=== PATIENT | male | born 1970 | race Caucasian/White ===

== ENCOUNTER 2020-07-29 09:04 | Outpatient (REF) | payer OTHER, SELFPAY ==
[2020-07-29 10:21] LABS: MANUAL DIFF FLAG NO
[2020-07-29 10:44] LABS: Basophils Percent Auto 0.3 % (0-2); Eosinophils Absolute Auto 0.4 X10*3/uL (0.0-0.4); Hematocrit 43.5 % (42-52); Hemoglobin 14.5 g/dl (14.0-18.0); Imm Gran Abs Auto 0.14 X10*3/uL (0.00-0.03); Imm Gran Pct Auto 1.2 % (0.0-0.4); Lymphocytes Percent Auto 16.9 % (20-40); Mean Corpuscular HGB Conc 33.3 g/dl (31.0-36.0); Mean Corpuscular Volume 89.9 fL (80-98); Mean Platelet Volume 11.2 fL (9.4-12.4); Monocytes Absolute Auto 0.6 X10*3/uL (0.1-1.2); Monocytes Percent Auto 5.2 % (2-11); Neutrophils Absolute Auto 8.8 X10*3/uL (2.0-8.3); Neutrophils Percent Auto 73.4 % (45-73); Platelet Count 295 X10*3/uL (160-400); Red Blood Count 4.84 X10*6/uL (4.60-5.80); Red Cell Distribution Width 12.9 % (11.0-16.0)
[2020-07-29 11:02] LABS: Alanine Aminotransferase 30 U/L (0-40); Albumin Level 4.5 g/dL (3.5-5.0); Alkaline Phosphatase 43 U/L (39-117); Anion Gap 14 (12-20); Aspartate Amino Transferase 15 U/L (5-37); Bilirubin Total 0.3 mg/dL (0.0-1.0); Blood Urea Nitrogen 16 mg/dL (9-16); Calcium 8.5 mg/dL (8.4-10.2); Carbon Dioxide 26 mmol/L (22-29); Chloride 105 mmol/L (96-108); Cholesterol 154 mg/dL; Estimated Glomerular Filt Rate > 60; Glucose Fasting 108 mg/dL (60-99); HDL Cholesterol 28 mg/dL; LDL Cholesterol Calculated 60 mg/dl; Potassium 4.6 mmol/l (3.3-5.1); Sodium 140 mmol/L (135-145); Total Protein 7.2 g/dL (6.5-8.0); Triglycerides 334 mg/dL; Uric Acid 12.2 mg/dL (3.4-7.0)
[2020-07-29 11:32] LABS: Folate 14.6 ng/mL (> or = 4.0); Vitamin B12 370 pg/mL (200-900)
[2020-08-04 04:32] LABS: Lipoprotein A 15 nmol/L (<75)
[2020-08-13 11:30] LABS: Apolipoprotein B 92 mg/dL (<90)
== END 2020-07-29 09:05 | disposition home or self-care (01) ==
LOC: HO.LAB 09:04
PROVIDERS: Visit Provider Internal Medicine
DX: M10.9 Gout, unspecified (principal); I10 Essential (primary) hypertension; E78.1 Pure hyperglyceridemia; E53.8 Deficiency of other specified B group vitamins; Z12.11 Encounter for screening for malignant neoplasm of colon; Z12.12 Encounter for screening for malignant neoplasm of rectum
CPT/HCPCS: 36415; 80053; 80061; 82172; 82607; 82746; 83695; 84550; 85025

== ENCOUNTER 2020-08-22 13:45 | Emergency (ER) | payer OTHER, SELFPAY ==
--- NOTE | 2020-08-22 | ECG_ITS ---
Test Reason : CHEST PAIN Blood Pressure : / mmHG Vent. Rate : 086 BPM Atrial Rate : 086 BPM P-R Int : 134 ms QRS Dur : 082 ms QT Int : 364 ms P-R-T Axes : 031 000 041 degrees QTc Int : 435 ms Normal sinus rhythm Normal ECG When compared with ECG of 22-JAN-2020 17:10, No significant change was found Referred By: Generic ED Physician Electronically Signed By:Demian Hsu
== END 2020-08-22 19:10 | disposition left against medical advice (07) ==
PROVIDERS: Emergency Provider Emergency Medicine; PCP Internal Medicine
DX: R07.9 Chest pain, unspecified (principal)
CPT/HCPCS: 93005; 99283

== ENCOUNTER 2020-08-25 14:59 | Observation (INO) | payer OTHER, SELFPAY ==
[2020-08-25 15:04] VITALS: BP 153/107; PULSE 78; RESP 18; TEMP 36.4; O2SAT 97; BMI 37.2
--- NOTE | 2020-08-25 15:04 | PC.NURSE ---
ekg called to triage upon arrival
--- NOTE | 2020-08-25 15:11 | ECG_ITS ---
Test Reason : CP Blood Pressure : / mmHG Vent. Rate : 098 BPM Atrial Rate : 098 BPM P-R Int : 130 ms QRS Dur : 080 ms QT Int : 350 ms P-R-T Axes : 042 -03 038 degrees QTc Int : 446 ms Normal sinus rhythm Nonspecific ST abnormality Abnormal ECG When compared with ECG of 22-AUG-2020 14:39, No significant change was found Referred By: Rashmi Verdugo Electronically Signed By:Demian Hsu
--- NOTE | 2020-08-25 15:11 | XR_ITS ---
EXAMINATION: XR CHEST CLINICAL INFORMATION: Left sided chest pain COMPARISON: 01/22/2020 TECHNIQUE: 2 views of the chest were obtained. FINDINGS: The cardiac silhouette is not enlarged. There is unchanged unfolding of the descending thoracic aorta and elevation of the right hemidiaphragm. A focal infiltrate is seen in the right lower lobe abutting the right hemidiaphragm. Trace right pleural effusion is seen laterally. The left lung is clear. XR/XR chest 2V IMPRESSION: Focal consolidation is seen in the right lower lobe consistent with pneumonia. The left lung is clear. No pneumothorax.
[2020-08-25 21:39] VITALS: BP 121/82; PULSE 97; RESP 16; TEMP 37.1; O2SAT 95
--- NOTE | 2020-08-25 21:39 | PC.NURSE ---
triage note: pt states he quit smoking a week ago. He reports left chest pain worse with movement and deep inspiration. He states SX started a week ago. Pt SOB when answering questions, Pt states he has been having shortness of brewath and when asked, states it is worse with activity. Ambulated pt with O2 sat probe in place, pulse to 114 and oxygen saturation 92 on RA with ambulation
[2020-08-25 22:00] VITALS: BP 156/97; PULSE 94; RESP 13; TEMP 37.1; O2SAT 94
--- NOTE | 2020-08-25 22:09 | ED_ITS ---
HPI - Chest Pain General Chief Complaint: Chest Pain Stated Complaint: chest pain Time Seen by Provider: 08/25/20 15:11 Source: patient Mode of arrival: ambulatory Limitations: no limitations History of Present Illness HPI narrative: This is a 50-year-old male history of COPD/smoker presented with 3-4 days symptoms of upper respiratory infection, productive cough with yellow sputum, and wheezing. Patient had similar symptoms before and was diagnosed with bronchitis PCP prescribed him Z-Ge patient in the middle of the course of the Z-Ge. Patient did not feel improvement with Z-Ge. Patient also been complaining of 2 days of constant chest pain mostly mid chest and toward the right side, no radiation of the pain, pain is worsening by coughing, nothing relieves the pain, pain was associated with chills and coughing. Patient while in the emergency department found to have exertional hypoxia (90%) at rest patient is satting above 94%. Patient otherwise declined risk for COVID exposure. Related Data Previous Rx's Medication Instructions Recorded albuterol sulfate 2.5 mg INHALATION TID #225 ml 06/11/20 carisoprodol 350 mg tablet 350 mg PO TID PRN 30 Days #120 tab 08/12/20 lisinopril 5 mg tablet 5 mg PO DAILY #90 tab 08/13/20 allopurinol 100 mg tablet 100 mg PO DAILY 90 Days #90 tab 08/20/20 azithromycin 250 mg tablet 250 mg PO DAILY 5 Days #6 tab 08/20/20 benzonatate 100 mg capsule 100 mg PO TID PRN 7 Days #21 cap 08/20/20 blood pressure monitor #1 ea 08/20/20 fenofibrate 160 mg tablet 160 mg PO DAILY 90 Days #90 tab 08/20/20 pantoprazole 40 mg tablet,delayed 40 mg PO DAILY 90 Days #90 tab 08/20/20 release Allergies Allergy/AdvReac Type Severity Reaction Status Date / Time bee pollen [Bee Stings] Allergy Severe ANAPHYLAXIS Verified 08/20/20 10:16 bee stings Allergy Unknown throat Verified 08/20/20 10:16 swelling hydromorphone [From DILAUDID] AdvReac Unknown VIOLENTLY Verified 08/20/20 10:16 ILL NEEDS TO EAT FIRST Review of Systems Review of Systems: All other systems are reviewed and are negative Constitutional: Reports as per HPI and Reports no additional constitutional complaints Eyes: Reports as per HPI and Reports no additional eye complaints Reports system reviewed and no additional complaints, except as documented Cardiovascular: Reports as per HPI and Reports no additional cardiovascular complaints Respiratory: Reports as per HPI and Reports no additional respiratory complaints Gastrointestinal: Reports as per HPI and Reports no additional gastrointestinal complaints Genitourinary: Reports no additional female genitourinary complaints Musculoskeletal: Reports no additional musculoskeletal complaints Skin/Breast: Reports system reviewed and no additional complaints, except as docu Psychiatric: Reports no additional psychiatric complaints Endocrine: Reports no additional endocrine complaints Hematologic/Lymphatic: Reports no additional hematologic/lymphatic complaints Allergic/Immunologic: Reports no additional allergic/immunologic complaints Reports system reviewed and no additional complaints, except as documented and R eports Abnormal speech present [facility] Past Medical History Medical History Essential hypertension GERD (gastroesophageal reflux disease) Gout Lumbar degenerative disc disease Lymphopenia Mixed hyperlipidemia Pernicious anemia Positive colorectal cancer screening using Cologuard test Surgical History History of arthroscopy of left knee History of shoulder surgery History of surgery History of total left knee replacement Status post surgical removal of malignant neoplasm of skin Family History Family History Father Lung cancer Mother Chronic mental illness Maternal Grandmother Hypertension Bone cancer Paternal Grandmother Brain cancer Maternal Uncle Cancer Family/Other Chronic mental illness Social History Social History Alcohol intake: former Smoking Status: Former smoker Tobacco Type: Cigarette Advance Directives: No Physical Exam Vital Signs: Vital Signs: Last Vital Signs Temp 98.7 F 08/25/20 22:00 Pulse 94 08/25/20 22:00 Resp 13 08/25/20 22:00 BP 156/97 H 08/25/20 22:00 Pulse Ox 94 08/25/20 22:00 Body Mass Index 37.2 Vital signs have been reviewed as normal and appeared to be correct. Blood pressure in the high range. Heart rate normal. Respiration rate normal. Temperature normal. Oxygen saturation normal. Appearance: Alert. Oriented X3. No acute distress. Head: Normal external exam. Normocephalic. Atraumatic. No Cortes signs noted. No raccoon eyes noted Eyes: PERRLA. EOMI. Conjunctiva and sclera normal. Eyelids normal. ENT: EAC normal. TM's Normal. Pharynx normal. Uvula midline. Moist mucous m embranes. No trismus noted. No drooling noted. No muffled voice noted. Neck: Normal inspection. Neck supple. FROM. No adenopathy. Thyroid Normal. No meningeal signs. No neck mass noted. CVS: Normal heart rate and rhythm. Heart sound normal. No murmurs noted. Pulses normal throughout. Respiratory: Mild respiratory distress. Painless inspiration. Breath sounds normal. Mild diffuse expiratory wheezes, no rales, rhonchi noted at the right lower lobe lung field. Chest nontender. No accessory muscle usage noted or decreased air movement noted. Abdomen: Soft and nontender. Bowel sounds normal in all 4 quadrants. No distention noted. No organomegaly noted. No visible injury noted. Back: No CVA tenderness. Full range of motion noted. Skin: Skin warm and dry. Normal skin color. Normal skin turgor. No rashes/lesions/lacerations noted. Extremities: No lower extremity edema. Extremities exhibit normal range of motion. Extremities nontender. Neuro: Oriented X 3. No motor deficit. No sensory deficit. Reflexes normal. Course Course Course Narrative: Assessment and plan. 50-year-old male smoker with history of COPD came in with respiratory symptoms of coughing/chest pain/chills/mild exertional hypoxia in the ED. Patient was prescribed p.o. Z-Ge by PCP did not complete the course yet but not feeling any improvement. Exam chest x-ray are consistent with right lower lobe pneumonia with COPD exacerbation, patient do not meet criteria for SIRS. Patient received Solu-Medrol and bronchodilator. COVID was negative. Will admit the patient for IV antibiotic. Chest pain not likely to be cardiogenic, normal EKG, normal troponin. MDM - Chest Pain Lab Data Result diagrams: 08/25/20 22:08 08/25/20 22:08 Labs: Lab Results 08/25/20 08/25/20 08/25/20 Range/Units 22:08 22:08 22:08 WBC 11.0 H (4.8-10.8) X10*3/uL RBC 4.80 (4.60-5.80) X10*6/uL Hgb 14.4 (14.0-18.0) g/dl Hct 42.8 (42-52) % MCV 89.2 (80-98) fL MCH 30.0 (27.0-33.0) pg MCHC 33.6 (31.0-36.0) g/dl RDW 12.6 (11.0-16.0) % Plt Count 265 (160-400) X10*3/uL MPV 10.3 (9.4-12.4) fL Immature Gran % (Auto) 0.8 H (0.0-0.4) % Neut % (Auto) 68.2 (45-73) % Lymph % (Auto) 23.3 (20-40) % Pettis % (Auto) 4.9 (2-11) % Eos % (Auto) 2.3 (0-4) % Baso % (Auto) 0.5 (0-2) % Lymph # (Auto) 2.6 (1.2-4.9) X10*3/uL Pettis # (Auto) 0.5 (0.1-1.2) X10*3/uL Eos # (Auto) 0.3 (0.0-0.4) X10*3/uL Baso # (Auto) 0.1 (0.0-0.2) X10*3/uL Abs Immat Gran (auto) 0.09 H (0.00-0.03) X10*3/uL Absolute Neuts (auto) 7.5 (2.0-8.3) X10*3/uL Absolute Nucleated RBC 0.000 (0.0-0.012) X10*3/uL Nucleated RBC % (auto) 0.0 (0.0-0.2) /100WBC Sodium 140 (135-145) mmol/L Potassium 3.9 (3.3-5.1) mmol/l Chloride 102 (96-108) mmol/L Carbon Dioxide 25 (22-29) mmol/L Anion Gap 17 (12-20) BUN 18 H (9-16) mg/dL Creatinine 0.97 (0.5-1.4) mg/dL Estim Creat Clear Calc 129.9 Estimated GFR > 60 Random Glucose 229 H (60-115) mg/dL Lactic Acid (0.5-2.0) mmol/L Calcium 9.2 D (8.4-10.2) mg/dL Total Bilirubin 0.5 (0.0-1.0) mg/dL Direct Bilirubin 0.2 (0.0-0.5) mg/dL AST 15 (5-37) U/L ALT 26 (0-40) U/L Alkaline Phosphatase 43 (39-117) U/L Troponin I High Sens < 3.5 (<3.5-35.0) ng/L B-Natriuretic Peptide 11 (<100) pg/mL Total Protein 7.1 (6.5-8.0) g/dL Albumin 4.5 (3.5-5.0) g/dL Lipase 27 (8-78) U/L COVID-19 (BRANDON) (Negative) COVID-19 Clin Com 08/25/20 08/25/20 Range/Units 22:08 22:08 WBC (4.8-10.8) X10*3/uL RBC (4.60-5.80) X10*6/uL Hgb (14.0-18.0) g/dl Hct (42-52) % MCV (80-98) fL MCH (27.0-33.0) pg MCHC (31.0-36.0) g/dl RDW (11.0-16.0) % Plt Count (160-400) X10*3/uL MPV (9.4-12.4) fL Immature Gran % (Auto) (0.0-0.4) % Neut % (Auto) (45-73) % Lymph % (Auto) (20-40) % Pettis % (Auto) (2-11) % Eos % (Auto) (0-4) % Baso % (Auto) (0-2) % Lymph # (Auto) (1.2-4.9) X10*3/uL Pettis # (Auto) (0.1-1.2) X10*3/uL Eos # (Auto) (0.0-0.4) X10*3/uL Baso # (Auto) (0.0-0.2) X10*3/uL Abs Immat Gran (auto) (0.00-0.03) X10*3/uL Absolute Neuts (auto) (2.0-8.3) X10*3/uL Absolute Nucleated RBC (0.0-0.012) X10*3/uL Nucleated RBC % (auto) (0.0-0.2) /100WBC Sodium (135-145) mmol/L Potassium (3.3-5.1) mmol/l Chloride (96-108) mmol/L Carbon Dioxide (22-29) mmol/L Anion Gap (12-20) BUN (9-16) mg/dL Creatinine (0.5-1.4) mg/dL Estim Creat Clear Calc Estimated GFR Random Glucose (60-115) mg/dL Lactic Acid 2.2 H* (0.5-2.0) mmol/L Calcium (8.4-10.2) mg/dL Total Bilirubin (0.0-1.0) mg/dL Direct Bilirubin (0.0-0.5) mg/dL AST (5-37) U/L ALT (0-40) U/L Alkaline Phosphatase (39-117) U/L Troponin I High Sens (<3.5-35.0) ng/L B-Natriuretic Peptide (<100) pg/mL Total Protein (6.5-8.0) g/dL Albumin (3.5-5.0) g/dL Lipase (8-78) U/L COVID-19 (BRANDON) Negative (Negative) COVID-19 Clin Com See Note Imaging Data Chest x-ray: Radiologist's impression: Focal consolidation is seen in the right lower lobe consistent with pneumonia. The left lung is clear. No pneumothorax. ECG Data ECG #1: Interpretation: Normal sinus rhythm at 98 beats per minute, normal intervals, flattening T-wave in aVL, AVF,III. Discharge Plan Discharge Clinical Impression: Acute exacerbation of chronic obstructive pulmonary disease, Community acquired pneumonia Patient Disposition: Admitted As Inpatient Prescriptions: No Action albuterol sulfate 2.5 mg /3 mL (0.083 %) solution for nebulization 2.5 mg inhalation TID Qty: 225 RF: 3 carisoprodol 350 mg tablet 350 mg PO TID PRN (Reason: muscle pain) 30 Days Qty: 120 RF: 0 lisinopril 5 mg tablet 5 mg PO DAILY Qty: 90 RF: 1 (DME) blood pressure monitor Kit See Rx Instructions .ROUTE .MEDSUPPLY Qty: 1 RF: 0 azithromycin 250 mg tablet 250 mg PO DAILY 5 Days Qty: 6 RF: 0 benzonatate [Tessalon Perles] 100 mg capsule 100 mg PO TID PRN (Reason: cough) 7 Days Qty: 21 RF: 0 allopurinol 100 mg tablet 100 mg PO DAILY 90 Days Qty: 90 RF: 0 fenofibrate 160 mg tablet 160 mg PO DAILY 90 Days Qty: 90 RF: 1 pantoprazole 40 mg tablet,delayed release (DR/EC) 40 mg PO DAILY 90 Days Qty: 90 RF: 3
[2020-08-25 22:20] LABS: Basophils Absolute Auto 0.1 X10*3/uL (0.0-0.2); Basophils Percent Auto 0.5 % (0-2); Eosinophils Absolute Auto 0.3 X10*3/uL (0.0-0.4); Eosinophils Percent Auto 2.3 % (0-4); Hematocrit 42.8 % (42-52); Hemoglobin 14.4 g/dl (14.0-18.0); Imm Gran Abs Auto 0.09 X10*3/uL (0.00-0.03); Imm Gran Pct Auto 0.8 % (0.0-0.4); Lymphocytes Absolute Auto 2.6 X10*3/uL (1.2-4.9); Lymphocytes Percent Auto 23.3 % (20-40); MANUAL DIFF FLAG NO; Mean Corpuscular HGB Conc 33.6 g/dl (31.0-36.0); Mean Corpuscular Volume 89.2 fL (80-98); Mean Platelet Volume 10.3 fL (9.4-12.4); Monocytes Absolute Auto 0.5 X10*3/uL (0.1-1.2); Monocytes Percent Auto 4.9 % (2-11); Neutrophils Absolute Auto 7.5 X10*3/uL (2.0-8.3); Neutrophils Percent Auto 68.2 % (45-73); Platelet Count 265 X10*3/uL (160-400); Red Cell Distribution Width 12.6 % (11.0-16.0)
[2020-08-25 22:36] LABS: COVID-19 Test Negative (Negative)
[2020-08-25 22:39] LABS: Lactic Acid 2.2 mmol/L (0.5-2.0)
[2020-08-25 22:42] LABS: Alanine Aminotransferase 26 U/L (0-40); Albumin Level 4.5 g/dL (3.5-5.0); Alkaline Phosphatase 43 U/L (39-117); Anion Gap 17 (12-20); Aspartate Amino Transferase 15 U/L (5-37); Bilirubin Direct 0.2 mg/dL (0.0-0.5); Bilirubin Total 0.5 mg/dL (0.0-1.0); Blood Urea Nitrogen 18 mg/dL (9-16); Calcium 9.2 mg/dL (8.4-10.2); Carbon Dioxide 25 mmol/L (22-29); Chloride 102 mmol/L (96-108); Creatinine Clr Calc Pharmacy 129.9; Estimated Glomerular Filt Rate > 60; Glucose Random 229 mg/dL (60-115); Lipase 27 U/L (8-78); Potassium 3.9 mmol/l (3.3-5.1); Sodium 140 mmol/L (135-145); Total Protein 7.1 g/dL (6.5-8.0)
[2020-08-25 22:47] LABS: B Type Natriuretic Peptide 11 pg/mL (<100); Troponin-I High Sensitivity < 3.5 ng/L (<3.5-35.0)
[2020-08-25] MEDS: Ketorolac Tromethamine 15 MG/ML VIAL IV (23:09)
[2020-08-25] MEDS: cefTRIAXone sodium 1 GM in 0.9 % Sodium Chloride 100 ML IV (23:09)
[2020-08-25] MEDS: Nicotine 21 MG PATCH.TD24 TRANSDERMA (23:12)
[2020-08-25 23:17] LABS: Glucose Urine UA NEG (NEG); Leukocyte Esterase Urine NEG (NEG); Nitrite Urine NEG (NEG); Specific Gravity - Urine >= 1.030 (1.005-1.025); Urine Blood NEG (NEG); Urine Ketones NEG (NEG); Urine Protein NEG (NEG-TRACE)
[2020-08-25 23:18] LABS: Appearance Urine CLEAR; Color Urine YELLOW
--- NOTE | 2020-08-25 23:54 | P.HPHOSP_ITS ---
History of Present Illness Date of Service: 08/25/20 Chief Complaint: SOB , chest pain This is a 50-year-old male with past medical history of COPD, hypertension, hyperlipidemia, depression, anxiety, PTSD who presents to the hospital with complaints of shortness of breath and chest pain. Patient describes chest pain as left-sided, radiating to the left arm, worse with coughing, and deep inspiration, started 4-5 days ago, sharp stabbing, intermittent, occurs mostly at night and resolves spontaneously. The shortness of breath also started 4-5 days ago, associated with cough that is improving, he has also some sputum production. Patient was prescribed Z-Ge by his PCP but patient reports no improvement in his symptoms. He denies fever or chills. No abdominal pain nausea or vomiting, no diarrhea constipation, no urinary symptoms and no lower extremity edema. On arrival to the ED hemodynamically stable with no significant abnormal vitals satting 97% on room air Labs are significant for WBC count of 11, BUN of 18, creatinine of 0.97, lactic acid of 2.2, Chest x-ray significant for focal consolidation in the right lower lobe consistent with pneumonia Past medical history: Hypertension, hyperlipidemia, depression, anxiety, COPD Surgical history: Knee replacement Family history colon cancer, [place] in his father although he is not sure what age Social history: Comes from home, denies tobacco alcohol or illicit drugs at this time Review of Systems Review of Systems: Yes all other systems are reviewed and are negative [facility] Medical History Essential hypertension GERD (gastroesophageal reflux disease) Gout Lumbar degenerative disc disease Lymphopenia Mixed hyperlipidemia Pernicious anemia Positive colorectal cancer screening using Cologuard test Family History Father Lung cancer Mother Chronic mental illness Maternal Grandmother Hypertension Bone cancer Paternal Grandmother Brain cancer Maternal Uncle Cancer Family/Other Chronic mental illness Surgical History History of arthroscopy of left knee History of shoulder surgery History of surgery History of total left knee replacement Status post surgical removal of malignant neoplasm of skin Social History Alcohol intake: former Smoking Status: Current every day smoker Tobacco Type: Cigarette service: No Current occupational status: unemployed Meds Allergies Allergy/AdvReac Type Severity Reaction Status Date / Time bee pollen [Bee Stings] Allergy Severe ANAPHYLAXIS Verified 08/20/20 10:16 bee stings Allergy Unknown throat Verified 08/20/20 10:16 swelling hydromorphone [From DILAUDID] AdvReac Unknown VIOLENTLY Verified 08/20/20 10:16 ILL NEEDS TO EAT FIRST Home Medications Medication Instructions Recorded Confirmed Type Anoro Ellipta 1 puff PO DAILY 08/25/20 08/25/20 History aripiprazole 1 tab PO QAM 08/25/20 08/25/20 History buspirone 1 tab PO DAILY 08/25/20 08/25/20 History carisoprodol 350 mg PO TID PRN 08/25/20 08/25/20 History clonazepam 1 tab PO BID 08/25/20 08/25/20 History cyanocobalamin (vitamin B-12) 1,000 mcg PO DAILY 08/25/20 08/25/20 History [Vitamin B-12] folic acid 1 tab PO DAILY 08/25/20 08/25/20 History hydroxyzine pamoate 1 cap PO BID PRN 08/25/20 08/25/20 History omeprazole 1 cap PO DAILY 08/25/20 08/25/20 History oxcarbazepine 1 tab PO BID 08/25/20 08/25/20 History prazosin 1 cap PO BID 08/25/20 08/25/20 History zolpidem 1 tab PO BEDTIME PRN 08/25/20 08/25/20 History Physical Exam Vital Signs and Narrative: Vital Signs: Last Vital Signs Temp 98.7 F 08/25/20 22:00 Pulse 94 08/25/20 22:00 Resp 13 08/25/20 22:00 BP 156/97 H 08/25/20 22:00 Pulse Ox 94 08/25/20 22:00 Body Mass Index 37.2 Const: General: cooperative and no acute distress Orientation/consciousness : patient oriented x3 Eyes: General: appearance normal, both eyes and all related structures Resp: Other: Ronchi Effort & Inspection: normal respiratory effort and able to speak in complete sentences Cardio: Rate: regular rate Rhythm: regular rhythm GI: Palpation (GI): Soft to palpation Auscultation: normal bowel sounds Skin: General skin exam: no rashes or lesions noted Neuro: General: patient oriented x3 Cognition (Neuro): normal cognition Extrem: General: Yes normal to inspection and Yes no pedal edema Results Labs CBC and Chem 7: 08/26/20 06:45 08/26/20 06:45 Labs: Laboratory Results - last 24 hr 08/25/20 08/25/20 08/25/20 22:08 22:08 22:08 MCV 89.2 MCH 30.0 MCHC 33.6 RDW 12.6 Plt Count 265 MPV 10.3 Immature Gran % (Auto) 0.8 H Neut % (Auto) 68.2 Lymph % (Auto) 23.3 Bates % (Auto) 4.9 Eos % (Auto) 2.3 Baso % (Auto) 0.5 Lymph # (Auto) 2.6 Bates # (Auto) 0.5 Eos # (Auto) 0.3 Baso # (Auto) 0.1 Abs Immat Gran (auto) 0.09 H Absolute Neuts (auto) 7.5 Absolute Nucleated RBC 0.000 Nucleated RBC % (auto) 0.0 Anion Gap 17 Estim Creat Clear Calc 129.9 Estimated GFR > 60 Random Glucose 229 H Lactic Acid Calcium 9.2 D Total Bilirubin 0.5 Direct Bilirubin 0.2 AST 15 ALT 26 Alkaline Phosphatase 43 Troponin I High Sens < 3.5 B-Natriuretic Peptide 11 Total Protein 7.1 Albumin 4.5 Lipase 27 Urine Color Urine Appearance Urine pH Ur Specific [place] Urine Protein Urine Glucose (UA) Urine Ketones Urine Blood Urine Nitrite Ur Leukocyte Esterase COVID-19 (BRANDON) COVID-19 Clin Com 08/25/20 08/25/20 08/25/20 22:08 22:08 23:01 MCV MCH MCHC RDW Plt Count MPV Immature Gran % (Auto) Neut % (Auto) Lymph % (Auto) Bates % (Auto) Eos % (Auto) Baso % (Auto) Lymph # (Auto) Bates # (Auto) Eos # (Auto) Baso # (Auto) Abs Immat Gran (auto) Absolute Neuts (auto) Absolute Nucleated RBC Nucleated RBC % (auto) Anion Gap Estim Creat Clear Calc Estimated GFR Random Glucose Lactic Acid 2.2 H* Calcium Total Bilirubin Direct Bilirubin AST ALT Alkaline Phosphatase Troponin I High Sens B-Natriuretic Peptide Total Protein Albumin Lipase Urine Color YELLOW Urine Appearance CLEAR Urine pH 6.0 Ur Specific [place] >= 1.030 H Urine Protein NEG Urine Glucose (UA) NEG Urine Ketones NEG Urine Blood NEG Urine Nitrite NEG Ur Leukocyte Esterase NEG COVID-19 (BRANDON) Negative COVID-19 Clin Com See Note Imaging Radiologist's Impressions: Impressions Chest X-Ray 08/25/20 15:11 IMPRESSION: Focal consolidation is seen in the right lower lobe consistent with pneumonia. The left lung is clear. No pneumothorax. Assessment and Plan (1) Acute exacerbation of chronic obstructive pulmonary disease: Status: Acute (2) Community acquired pneumonia: Qualifiers: Laterality: right Lung location: lower lobe of lung Qualified Code(s): J18.9 - Pneumonia, unspecified organism Status: Acute (3) Essential hypertension: Status: Acute 50-year-old who presents to the hospital with complaints of shortness of breath and chest pain found to have pneumonia # community-acquired pneumonia - failed outpatient therapy with z-pack - aferbile, has mild leukocytosis - COVID-19 PCR negative Plan: - Will start on levofloxacin - blood cultures sent will follow - Legionella and strep pneumonia antigens pending # COPD exacerbation - no hypoxia, has cough, sputum production and dyspnea - will start on Z-Ge outpatient but did not improve Plan: - IV Solu-Medrol 40 b.i.d., DuoNeb q.i.d. scheduled and p.r.n. - will monitor respiratory status # chest pain - appears to be noncardiac, - high sensitivity troponin negative - EKG negative for any evidence of ACS Plan: - monitor # hypertension - stable - continue home regimen DVT prophylaxis: Lovenox
[2020-08-26] VITALS (12 sets, daily range): BP systolic 116–147; BP diastolic 64–97; PULSE 70–113; RESP 18–22; TEMP 36.4–37; O2SAT 93–100
[2020-08-26] MEDS: Albuterol/Iprat 2.5/0.5MG 3 ML AMPUL.NEB INHALE ×4 (00:08→19:38)
[2020-08-26 00:14] LABS: Reflex Lactate? Lactic Acid Added
[2020-08-26] MEDS: OXcarbazepine 300 MG TABLET PO ×3 (00:14→20:01)
[2020-08-26] MEDS: Zolpidem Tartrate 5 MG TABLET 10 MG PO ×2 (00:14→20:01)
[2020-08-26] MEDS: levoFLOXacin/D5W 750 MG/150 ML PIGGYBACK 100 MG IV (00:45)
[2020-08-26] MEDS: Lactated Ringers 1,000 ML 80 ML IVCONT ×2 (00:45→14:02)
[2020-08-26] MEDS: Enoxaparin Sodium 40 MG/0.4 ML SYRINGE SUBCUT (00:45)
--- NOTE | 2020-08-26 00:52 | PC.NURSE ---
Medicated per MAR.
[2020-08-26 06:18] LABS: ~Lactic Acid-LAB USE ONLY 2.6 mmol/L (0.5-2.0)
[2020-08-26 06:54] LABS: MANUAL DIFF FLAG NO
[2020-08-26 07:17] LABS: Basophils Percent Auto 0.1 % (0-2); Hematocrit 40.8 % (42-52); Hemoglobin 13.5 g/dl (14.0-18.0); Imm Gran Abs Auto 0.17 X10*3/uL (0.00-0.03); Imm Gran Pct Auto 1.8 % (0.0-0.4); Lymphocytes Absolute Auto 0.8 X10*3/uL (1.2-4.9); Lymphocytes Percent Auto 8.4 % (20-40); Mean Corpuscular HGB Conc 33.1 g/dl (31.0-36.0); Mean Corpuscular Volume 90.7 fL (80-98); Mean Platelet Volume 10.3 fL (9.4-12.4); Monocytes Absolute Auto 0.1 X10*3/uL (0.1-1.2); Monocytes Percent Auto 1.2 % (2-11); Neutrophils Absolute Auto 8.4 X10*3/uL (2.0-8.3); Neutrophils Percent Auto 88.5 % (45-73); Platelet Count 253 X10*3/uL (160-400); Red Cell Distribution Width 12.7 % (11.0-16.0); White Blood Count 9.5 X10*3/uL (4.8-10.8)
[2020-08-26 07:23] LABS: Anion Gap 16 (12-20); Blood Urea Nitrogen 19 mg/dL (9-16); Carbon Dioxide 21 mmol/L (22-29); Chloride 105 mmol/L (96-108); Creatinine Clr Calc Pharmacy 144.8; Estimated Glomerular Filt Rate > 60; Glucose Random 208 mg/dL (60-115); Potassium 4.6 mmol/l (3.3-5.1); Sodium 137 mmol/L (135-145)
[2020-08-26 07:55] LABS: Reflex Lactate? 2 Y
--- NOTE | 2020-08-26 08:36 | PM.EVENT ---
Event Note Date of Service: 08/26/20 Event Note: Seen and examined. Here with CAP failied outpatient thereapy. Normal lung expansion. O2 100 on room. Will try to d/c with different med.
[2020-08-26] MEDS: carisoprodoL 350 MG TABLET PO ×2 (08:49→18:33)
[2020-08-26] MEDS: clonazePAM 1 MG TABLET 2 MG PO ×2 (08:49→20:01)
[2020-08-26] MEDS: busPIRone HCl 10 MG TABLET PO (08:50)
[2020-08-26] MEDS: Folic Acid 1 MG TABLET PO (08:50)
[2020-08-26] MEDS: Omeprazole 20 MG CAPSULE.DR PO (08:51)
[2020-08-26] MEDS: Cyanocobalamin (Vitamin B-12) 1,000 MCG TABLET 1000 MCG PO (08:51)
[2020-08-26] MEDS: lisinopriL 5 MG TABLET PO (08:52)
[2020-08-26] MEDS: 0.9 % Sodium Chloride Flush 3 ML SYRINGE IVFLUSH (08:55)
[2020-08-26] MEDS: Prazosin HCL 1 MG CAPSULE 2 MG PO ×2 (10:16→20:01)
--- NOTE | 2020-08-26 10:58 | PC.NURSE ---
During admission process pt stated that he had thoughts of hurting himself a couple of weeks ago, when I asked if he had a plan he stated he always has a plan. I left a message for Lacy Caldwell RN< CARN. Velez texted Dr. Marie to have him call me so I could let him know about the situation.
--- NOTE | 2020-08-26 11:43 | PC.NURSE ---
Called pharmacy on medication not loaded in Pyxis for patient, they stated that they still have to bring them up. Medication was due at 9:00AM
--- NOTE | 2020-08-26 11:55 | PC.NURSE ---
Spoke with patient concerning his PTSD and positive answers on the Risk screening, he states that he goes to [facility] in [place], and goes to numerous different groups. He is well hooked up and does not want to talk to anyone while in the hospital.
[2020-08-26 12:17] LABS: ~Lactic Acid-LAB USE ONLY 3.6 mmol/L (0.5-2.0)
--- NOTE | 2020-08-26 12:28 | MHC.CM.PN ---
CM MET WITH PT, DISCHARGE PLAN HOME SELF-CARE, HOSPITAL SHUTTLE OR FRIEND TO TRANSPORT DEPENDING ON TIME, PT REPORTS HE IS INDEPENDENT WITH ALL CARE AT HOME, PT REPORTS HE HAS A NEBULIZER THROUGH [facility] AND A CANE HE USES OCCASIONALLY, PT DENIES NEED FOR AT HOME SERVICES. PT DOES REPORT BEING CURRENT WITH HIS PSYCHIATRIST DR. HUMMEL, PT REPORTS MEDS ARE WORKING AND ALTHOUGH HE FELT LIKE GIVING UP WHEN HE GOT SICK, HE REPORTS HE IS FEELING A LITTLE BETTER NOW, DENIES SUICIDAL IDEATION AND DECLINES TO MEET WITH CARE TEAM AT THIS TIME AND THAT HE HAS OUTSIDE SUPPORTS. PT DOES REPORT HX OF SUBSTANCE ABUSE PT DECLINES TO GO INTO DETAIL AND REPORTS HE HAS BEEN CLEAN FOR YEARS.
--- NOTE | 2020-08-26 12:30 | PC.NURSE ---
Received a critical Lactic Acid of 3.6, tiger texted Dr. Marie with results. Awaiting for text back.
[2020-08-26] MEDS: ARIPiprazole 10 MG TABLET PO (14:00)
[2020-08-26] MEDS: Fenofibrate 160 MG TABLET PO (14:01)
[2020-08-26] MEDS: allopurinoL 100 MG TABLET PO (18:33)
[2020-08-26] MEDS: Benzonatate 100 MG CAPSULE PO (20:01)
[2020-08-27] MEDS: levoFLOXacin/D5W 750 MG/150 ML PIGGYBACK 100 MG IV (00:39)
[2020-08-27] MEDS: Lactated Ringers 1,000 ML 80 ML IVCONT (00:41)
[2020-08-27] MEDS: 0.9 % Sodium Chloride Flush 3 ML SYRINGE IVFLUSH ×2 (00:41→08:20)
[2020-08-27 02:47] VITALS: BP 130/67; PULSE 96; RESP 16; TEMP 36.6; O2SAT 94
[2020-08-27 07:37] VITALS: BP 118/52; PULSE 91; RESP 18; TEMP 37.1; O2SAT 96
[2020-08-27] MEDS: clonazePAM 1 MG TABLET 2 MG PO (08:18)
[2020-08-27] MEDS: Omeprazole 20 MG CAPSULE.DR PO (08:18)
[2020-08-27] MEDS: Folic Acid 1 MG TABLET PO (08:18)
[2020-08-27] MEDS: Fenofibrate 160 MG TABLET PO (08:19)
[2020-08-27] MEDS: allopurinoL 100 MG TABLET PO (08:19)
[2020-08-27] MEDS: OXcarbazepine 300 MG TABLET PO (08:19)
[2020-08-27] MEDS: busPIRone HCl 10 MG TABLET PO (08:19)
[2020-08-27] MEDS: ARIPiprazole 10 MG TABLET PO (08:19)
[2020-08-27] MEDS: lisinopriL 5 MG TABLET PO (08:19)
[2020-08-27] MEDS: Cyanocobalamin (Vitamin B-12) 1,000 MCG TABLET 1000 MCG PO (08:20)
[2020-08-27] MEDS: carisoprodoL 350 MG TABLET PO (08:42)
[2020-08-27] MEDS: Nicotine 21 MG PATCH.TD24 TRANSDERMA (10:16)
--- NOTE | 2020-08-27 10:27 | PM.DS ---
DS: Providers Provider Date of Service: 09/16/20 Date of admission: 08/25/20 23:48 Primary care physician: Yulissa Keyes MD DS: Diagnosis Discharge Diagnosis (1) Acute exacerbation of chronic obstructive pulmonary disease: Status: Acute (2) Community acquired pneumonia: Status: Acute (3) Essential hypertension: Status: Acute DS: Medications Discharge Medications Home Medications: Home Medications Medication Instructions Recorded Confirmed Anoro Ellipta 1 puff PO DAILY 08/25/20 08/25/20 aripiprazole 1 tab PO QAM 08/25/20 08/25/20 buspirone 1 tab PO DAILY 08/25/20 08/25/20 carisoprodol 350 mg PO TID PRN 08/25/20 08/25/20 clonazepam 1 tab PO BID 08/25/20 08/25/20 cyanocobalamin (vitamin B-12) 1,000 mcg PO DAILY 08/25/20 08/25/20 [Vitamin B-12] folic acid 1 tab PO DAILY 08/25/20 08/25/20 hydroxyzine pamoate 1 cap PO BID PRN 08/25/20 08/25/20 indomethacin 1 cap PO BID 08/25/20 08/25/20 omeprazole 1 cap PO DAILY 08/25/20 08/25/20 oxcarbazepine 1 tab PO BID 08/25/20 08/25/20 prazosin 1 cap PO BID 08/25/20 08/25/20 zolpidem 1 tab PO BEDTIME PRN 08/25/20 08/25/20 Previous Rx's Medication Instructions Recorded albuterol sulfate 2.5 mg INHALATION TID #225 ml 06/11/20 lisinopril 5 mg tablet 5 mg PO DAILY #90 tab 08/13/20 allopurinol 100 mg tablet 100 mg PO DAILY 90 Days #90 tab 08/20/20 benzonatate 100 mg capsule 100 mg PO TID PRN 7 Days #21 cap 08/20/20 blood pressure monitor #1 ea 08/20/20 fenofibrate 160 mg tablet 160 mg PO DAILY 90 Days #90 tab 08/20/20 pantoprazole 40 mg tablet,delayed 40 mg PO DAILY 90 Days #90 tab 08/20/20 release levofloxacin 750 mg PO DAILY 3 Days #3 tab 08/27/20 nicotine 21 mg TRANSDERMAL DAILY #30 ea 08/27/20 DS: Summary Hospital Course Hospital Course: This is a 50-year-old male with past medical history of COPD, hypertension, hyperlipidemia, depression, anxiety, PTSD who presents to the hospital with complaints of shortness of breath and chest pain. Patient describes chest pain as left-sided, radiating to the left arm, worse with coughing, and deep inspiration, started 4-5 days ago, sharp stabbing, intermittent, occurs mostly at night and resolves spontaneously. The shortness of breath also started 4-5 days ago, associated with cough that is improving, he has also some sputum production. Patient was prescribed Z-Ge by his PCP but patient reports no improvement in his symptoms. He denies fever or chills. No abdominal pain nausea or vomiting, no diarrhea constipation, no urinary symptoms and no lower extremity edema. On arrival to the ED hemodynamically stable with no significant abnormal vitals satting 97% on room air Labs are significant for WBC count of 11, BUN of 18, creatinine of 0.97, lactic acid of 2.2, Chest x-ray significant for focal consolidation in the right lower lobe consistent with pneumonia Past medical history: Hypertension, hyperlipidemia, depression, anxiety, COPD Surgical history: Knee replacement Family history colon cancer, DE in his father although he is not sure what age Social history: Comes from home, denies tobacco alcohol or illicit drugs at this time Hospital course: He was admitted due to CAP that did not respond to Azithro on oupatient basis. In hospital treated with IV levaquin 750 daily and received 2 doses. He is doing well. No fever, or chills. No sob and desires to go home. Will transition to oral Levaquin at 750 for total of 5 days. Additional was given steroid for possible exacerbation of copd but in no need for steroid at this time. His lungs are clear and normal oxygen Time Spent with Patient Time attestation: Total time spent providing and/or coordinating discharge services: Discharge coordination time: Greater than 30 minutes Physical Exam Vital Signs: Vital Signs: Last Vital Signs Temp 98.8 F 08/27/20 07:37 Pulse 91 08/27/20 07:37 Resp 18 08/27/20 07:37 BP 118/52 L 08/27/20 07:37 Pulse Ox 96 08/27/20 07:37 Body Mass Index 37.2 DS: Data Data Completed and Pending Labs on day of discharge: Laboratory Tests 08/25/20 08/25/20 08/25/20 22:08 22:08 22:08 WBC 11.0 H RBC 4.80 Hgb 14.4 Hct 42.8 MCV 89.2 MCH 30.0 MCHC 33.6 RDW 12.6 Plt Count 265 MPV 10.3 Immature Gran % (Auto) 0.8 H Neut % (Auto) 68.2 Lymph % (Auto) 23.3 [place] % (Auto) 4.9 Eos % (Auto) 2.3 Baso % (Auto) 0.5 Lymph # (Auto) 2.6 [place] # (Auto) 0.5 Eos # (Auto) 0.3 Baso # (Auto) 0.1 Abs Immat Gran (auto) 0.09 H Absolute Neuts (auto) 7.5 Absolute Nucleated RBC 0.000 Nucleated RBC % (auto) 0.0 Sodium 140 Potassium 3.9 Chloride 102 Carbon Dioxide 25 Anion Gap 17 BUN 18 H Creatinine 0.97 Estim Creat Clear Calc 129.9 Estimated GFR > 60 Random Glucose 229 H Lactic Acid Lactic Acid Fup @ 2Hr Lactic Acid Fup @ 4Hr Calcium 9.2 D Total Bilirubin 0.5 Direct Bilirubin 0.2 AST 15 ALT 26 Alkaline Phosphatase 43 Troponin I High Sens < 3.5 B-Natriuretic Peptide 11 Total Protein 7.1 Albumin 4.5 Lipase 27 Urine Color Urine Appearance Urine pH Ur Specific [place] Urine Protein Urine Glucose (UA) Urine Ketones Urine Blood Urine Nitrite Ur Leukocyte Esterase COVID-19 ([facility]) COVID-19 Clin Com 08/25/20 08/25/20 08/25/20 22:08 22:08 23:01 WBC RBC Hgb Hct MCV MCH MCHC RDW Plt Count MPV Immature Gran % (Auto) Neut % (Auto) Lymph % (Auto) [place] % (Auto) Eos % (Auto) Baso % (Auto) Lymph # (Auto) [place] # (Auto) Eos # (Auto) Baso # (Auto) Abs Immat Gran (auto) Absolute Neuts (auto) Absolute Nucleated RBC Nucleated RBC % (auto) Sodium Potassium Chloride Carbon Dioxide Anion Gap BUN Creatinine Estim Creat Clear Calc Estimated GFR Random Glucose Lactic Acid 2.2 H* Lactic Acid Fup @ 2Hr Lactic Acid Fup @ 4Hr Calcium Total Bilirubin Direct Bilirubin AST ALT Alkaline Phosphatase Troponin I High Sens B-Natriuretic Peptide Total Protein Albumin Lipase Urine Color YELLOW Urine Appearance CLEAR Urine pH 6.0 Ur Specific [place] >= 1.030 H Urine Protein NEG Urine Glucose (UA) NEG Urine Ketones NEG Urine Blood NEG Urine Nitrite NEG Ur Leukocyte Esterase NEG COVID-19 ([facility]) Negative COVID-19 Clin Com See Note 08/26/20 08/26/20 08/26/20 05:30 06:45 06:45 WBC 9.5 RBC 4.50 L Hgb 13.5 L Hct 40.8 L MCV 90.7 MCH 30.0 MCHC 33.1 RDW 12.7 Plt Count 253 MPV 10.3 Immature Gran % (Auto) 1.8 H Neut % (Auto) 88.5 H Lymph % (Auto) 8.4 L [place] % (Auto) 1.2 L Eos % (Auto) 0.0 Baso % (Auto) 0.1 Lymph # (Auto) 0.8 L [place] # (Auto) 0.1 Eos # (Auto) 0.0 Baso # (Auto) 0.0 Abs Immat Gran (auto) 0.17 H Absolute Neuts (auto) 8.4 H Absolute Nucleated RBC 0.000 Nucleated RBC % (auto) 0.0 Sodium 137 Potassium 4.6 Chloride 105 Carbon Dioxide 21 L Anion Gap 16 BUN 19 H Creatinine 0.87 Estim Creat Clear Calc 144.8 Estimated GFR > 60 Random Glucose 208 H Lactic Acid Lactic Acid Fup @ 2Hr 2.6 H* Lactic Acid Fup @ 4Hr Calcium 9.0 Total Bilirubin Direct Bilirubin AST ALT Alkaline Phosphatase Troponin I High Sens B-Natriuretic Peptide Total Protein Albumin Lipase Urine Color Urine Appearance Urine pH Ur Specific [place] Urine Protein Urine Glucose (UA) Urine Ketones Urine Blood Urine Nitrite Ur Leukocyte Esterase COVID-19 ([facility]) COVID-19 Clin Com 08/26/20 11:19 WBC RBC Hgb Hct MCV MCH MCHC RDW Plt Count MPV Immature Gran % (Auto) Neut % (Auto) Lymph % (Auto) [place] % (Auto) Eos % (Auto) Baso % (Auto) Lymph # (Auto) [place] # (Auto) Eos # (Auto) Baso # (Auto) Abs Immat Gran (auto) Absolute Neuts (auto) Absolute Nucleated RBC Nucleated RBC % (auto) Sodium Potassium Chloride Carbon Dioxide Anion Gap BUN Creatinine Estim Creat Clear Calc Estimated GFR Random Glucose Lactic Acid Lactic Acid Fup @ 2Hr Lactic Acid Fup @ 4Hr 3.6 H* Calcium Total Bilirubin Direct Bilirubin AST ALT Alkaline Phosphatase Troponin I High Sens B-Natriuretic Peptide Total Protein Albumin Lipase Urine Color Urine Appearance Urine pH Ur Specific [place] Urine Protein Urine Glucose (UA) Urine Ketones Urine Blood Urine Nitrite Ur Leukocyte Esterase COVID-19 ([facility]) COVID-19 Clin Com Preliminary micro results at discharge 08/25/20 23:01 Blood Culture - Preliminary Blood - Venous No growth after 24 hours. 08/25/20 22:08 Blood Culture - Preliminary Blood - Venous No growth after 24 hours. Discharge Plan Discharge Anticipated Discharge Date/Time: 08/27/20 10:19 Patient Disposition: Home, Self-Care Referrals: Yulissa Dmepsey MD [Primary Care Provider] - Discharge Medications: New levofloxacin 750 mg tablet 750 mg PO DAILY 3 Days Qty: 3 RF: 0 nicotine 21 mg/24 hr Patch 24 Hour 21 mg transdermal DAILY Qty: 30 RF: 0 Continued albuterol sulfate 2.5 mg /3 mL (0.083 %) solution for nebulization 2.5 mg inhalation TID Qty: 225 RF: 3 lisinopril 5 mg tablet 5 mg PO DAILY Qty: 90 RF: 1 cyanocobalamin (vitamin B-12) [Vitamin B-12] 1,000 mcg Tablet 1,000 mcg PO DAILY RF: 0 oxcarbazepine 300 mg tablet 1 tab PO BID RF: 0 buspirone 10 mg tablet 1 tab PO DAILY RF: 0 clonazepam 2 mg tablet 1 tab PO BID RF: 0 folic acid 1 mg tablet 1 tab PO DAILY RF: 0 zolpidem 10 mg tablet 1 tab PO BEDTIME PRN (Reason: Insomnia) RF: 0 prazosin 2 mg capsule 1 cap PO BID RF: 0 hydroxyzine pamoate 25 mg capsule 1 cap PO BID PRN (Reason: Anxiety) RF: 0 aripiprazole 10 mg tablet 1 tab PO QAM RF: 0 Anoro Ellipta 62.5-25 mcg/actuation blister with device 1 puff PO DAILY RF: 0 (DME) blood pressure monitor Kit See Rx Instructions .ROUTE .MEDSUPPLY Qty: 1 RF: 0 benzonatate [Tessalon Perles] 100 mg capsule 100 mg PO TID PRN (Reason: cough) 7 Days Qty: 21 RF: 0 allopurinol 100 mg tablet 100 mg PO DAILY 90 Days Qty: 90 RF: 0 fenofibrate 160 mg tablet 160 mg PO DAILY 90 Days Qty: 90 RF: 1 pantoprazole 40 mg tablet,delayed release (DR/EC) 40 mg PO DAILY 90 Days Qty: 90 RF: 3 Discontinued azithromycin 250 mg tablet 250 mg PO DAILY 5 Days Qty: 6 RF: 0 No Action indomethacin 50 mg capsule 50 mg PO BID PRN (Reason: pain) 30 Days Qty: 60 RF: 1 carisoprodol 350 mg tablet 350 mg PO TID PRN (Reason: Muscle Pain) 30 Days Qty: 90 RF: 0 cyanocobalamin (vitamin B-12) 1,000 mcg tablet extended release 1,000 mcg PO DAILY RF: 0 oxcarbazepine 600 mg tablet 600 mg PO BID RF: 0 polyethylene glycol 3350 [Miralax] 17 gram/dose powder 238 g PO ONCE 1 Days Qty: 238 RF: 0 bisacodyl [Dulcolax (bisacodyl)] 5 mg tablet,delayed release (DR/EC) 10 mg PO ONCE 1 Days Qty: 2 RF: 0 Discharge Orders: Discharge Order (Routine); Ordered 08/27/20 Ordered By: Dutch Marie Diet: advance to usual diet Activity on Discharge: As tolerated Visit Report Forms: Patient Portal Discharge page Care Plan Goals: Recovery from pneumonia. Health Concerns: Pneumonia Plan of Treatment: Take Levaquin as directed and follow up with her primary care physician within a week, call for appointment. Continue taking all your usual medications. Use Nicotine patch to help with smoking cessation, avoid smoking while also using patch Discharge Date/Time: 08/27/20 12:38
[2020-08-27 10:52] VITALS: BP 121/50; PULSE 84; RESP 18; TEMP 36.9; O2SAT 94
--- NOTE | 2020-08-27 12:25 | MHC.CM.PN ---
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
== END 2020-08-27 12:38 | disposition home or self-care (01) ==
LOC: HO.ED 23:08 → HO.S3 08-26 09:11
PROVIDERS: Admitting Provider Internal Medicine; Emergency Provider Emergency Medicine; PCP Internal Medicine; Visit Provider Internal Medicine
DX: J44.1 Chronic obstructive pulmonary disease with (acute) exacerbation (principal); J18.9 Pneumonia, unspecified organism; I10 Essential (primary) hypertension; E78.5 Hyperlipidemia, unspecified; F41.8 Other specified anxiety disorders; F43.10 Post-traumatic stress disorder, unspecified; R06.02 Shortness of breath; R07.9 Chest pain, unspecified; R94.31 Abnormal electrocardiogram [ECG] [EKG]; F17.210 Nicotine dependence, cigarettes, uncomplicated; Z20.828 Contact with and (suspected) exposure to other viral communicable diseases; Z96.659 Presence of unspecified artificial knee joint; Z88.5 Allergy status to narcotic agent; Z91.030 Bee allergy status; Z79.899 Other long term (current) drug therapy
CPT/HCPCS: 36415; 71046; 80048; 80076; 81003; 83605; 83690; 83880; 84484; 85025; 87040; 87635; 93005; 94640; 96365; 96367; 96375; 99218; 99285; J0696; J1650; J1885; J1956; J2920; J2930

== ENCOUNTER → 2020-09-10 07:51 | Outpatient (BNVA) | payer OTHER, SELFPAY | PROVIDERS: PCP Internal Medicine; Visit Provider Physician Assistant | DX: K21.9 Gastro-esophageal reflux disease without esophagitis (principal); R19.5 Other fecal abnormalities | CPT/HCPCS: 99202 ==

== ENCOUNTER 2020-10-08 11:15 | Outpatient (REF) | payer OTHER, SELFPAY ==
--- NOTE | ~2020-10-08 | XR_ITS ---
EXAMINATION: CHEST AND LUMBAR SPINE X-RAY CLINICAL INFORMATION: Pneumonia. Disc degeneration. COMPARISON: Previous chest x-ray most recent August 2020 and lumbar spine x-ray most recent December 2017 TECHNIQUE: Two-view chest and 3 views of the lumbar spine FINDINGS: Chest: The cardiac and mediastinal contours are stable. The lungs are clear. There is elevation of the right hemidiaphragm. This is unchanged. There is no pleural effusion or pneumothorax. There are degenerative changes of the thoracic spine. Lumbar spine: There is mild 8 mm anterior subluxation of L5 with respect to S1. This appears unchanged. No fracture or dislocation is seen. There may be a transitional vertebral body segment or lumbarization of S1. There is degenerative disc disease at L5-S1. There is lower lumbar spine facet arthritis. XR/XR lumbar spine 2-3V IMPRESSION: Chest: No evidence for acute disease in the chest. Stable elevation of the right hemidiaphragm. Lumbar spine: Stable mild anterior subluxation of L5 with respect to S1. Degenerative disc disease and facet arthritis at L5-S1.
--- NOTE | ~2020-10-08 | XR_ITS ---
EXAMINATION: CHEST AND LUMBAR SPINE X-RAY CLINICAL INFORMATION: Pneumonia. Disc degeneration. COMPARISON: Previous chest x-ray most recent August 2020 and lumbar spine x-ray most recent December 2017 TECHNIQUE: Two-view chest and 3 views of the lumbar spine FINDINGS: Chest: The cardiac and mediastinal contours are stable. The lungs are clear. There is elevation of the right hemidiaphragm. This is unchanged. There is no pleural effusion or pneumothorax. There are degenerative changes of the thoracic spine. Lumbar spine: There is mild 8 mm anterior subluxation of L5 with respect to S1. This appears unchanged. No fracture or dislocation is seen. There may be a transitional vertebral body segment or lumbarization of S1. There is degenerative disc disease at L5-S1. There is lower lumbar spine facet arthritis. XR/XR chest 2V IMPRESSION: Chest: No evidence for acute disease in the chest. Stable elevation of the right hemidiaphragm. Lumbar spine: Stable mild anterior subluxation of L5 with respect to S1. Degenerative disc disease and facet arthritis at L5-S1.
[2020-10-08 11:52] LABS: MANUAL DIFF FLAG NO
[2020-10-08 12:08] LABS: Basophils Percent Auto 0.2 % (0-2); Eosinophils Absolute Auto 0.1 X10*3/uL (0.0-0.4); Eosinophils Percent Auto 1.2 % (0-4); Hematocrit 37.9 % (42-52); Hemoglobin 12.6 g/dl (14.0-18.0); Imm Gran Abs Auto 0.19 X10*3/uL (0.00-0.03); Imm Gran Pct Auto 2.1 % (0.0-0.4); Lymphocytes Absolute Auto 1.9 X10*3/uL (1.2-4.9); Lymphocytes Percent Auto 20.7 % (20-40); Mean Corpuscular HGB Conc 33.2 g/dl (31.0-36.0); Mean Corpuscular Hemoglobin 29.6 pg (27.0-33.0); Mean Platelet Volume 10.1 fL (9.4-12.4); Monocytes Absolute Auto 0.7 X10*3/uL (0.1-1.2); Monocytes Percent Auto 7.7 % (2-11); Neutrophils Absolute Auto 6.3 X10*3/uL (2.0-8.3); Neutrophils Percent Auto 68.1 % (45-73); Platelet Count 256 X10*3/uL (160-400); Red Blood Count 4.26 X10*6/uL (4.60-5.80); Red Cell Distribution Width 12.8 % (11.0-16.0); White Blood Count 9.2 X10*3/uL (4.8-10.8)
[2020-10-08 12:23] LABS: Alanine Aminotransferase 20 U/L (0-40); Albumin Level 4.4 g/dL (3.5-5.0); Alkaline Phosphatase 34 U/L (39-117); Anion Gap 14 (12-20); Aspartate Amino Transferase 13 U/L (5-37); Bilirubin Total 0.2 mg/dL (0.0-1.0); Blood Urea Nitrogen 11 mg/dL (9-16); Calcium 9.4 mg/dL (8.4-10.2); Carbon Dioxide 25 mmol/L (22-29); Chloride 100 mmol/L (96-108); Cholesterol 142 mg/dL; Estimated Glomerular Filt Rate > 60; Glucose Fasting 122 mg/dL (60-99); HDL Cholesterol 40 mg/dL; LDL Cholesterol Calculated 73 mg/dl; Potassium 4.7 mmol/L (3.3-5.1); Sodium 134 mmol/L (135-145); Total Protein 6.8 g/dL (6.5-8.0); Triglycerides 145 mg/dL; Uric Acid 4.9 mg/dL (3.4-7.0)
[2020-10-10 20:50] LABS: Folate > 20.0 ng/mL (> or = 4.0); Vitamin B12 368 pg/mL (200-900)
== END 2020-10-08 11:16 | disposition home or self-care (01) ==
LOC: HO.LAB 11:15
PROVIDERS: PCP Internal Medicine; Visit Provider Internal Medicine
DX: D51.0 Vitamin B12 deficiency anemia due to intrinsic factor deficiency (principal); E78.2 Mixed hyperlipidemia; M10.9 Gout, unspecified; E78.5 Hyperlipidemia, unspecified; Z87.01 Personal history of pneumonia (recurrent); M51.36 Other intervertebral disc degeneration, lumbar region
CPT/HCPCS: 36415; 71046; 72100; 80053; 80061; 82607; 82746; 84550; 85025

== ENCOUNTER → 2020-10-24 15:15 | Outpatient (BNVA) | payer OTHER, SELFPAY | PROVIDERS: PCP Internal Medicine; Visit Provider Physician Assistant ==

== ENCOUNTER 2021-01-06 20:37 | Emergency (ER) | payer OTHER, SELFPAY ==
--- NOTE | 2021-01-06 | ECG_ITS ---
Test Reason : SOB Blood Pressure : / mmHG Vent. Rate : 083 BPM Atrial Rate : 083 BPM P-R Int : 128 ms QRS Dur : 078 ms QT Int : 374 ms P-R-T Axes : 037 000 043 degrees QTc Int : 439 ms Normal sinus rhythm Normal ECG When compared with ECG of 25-AUG-2020 15:19, No significant change was found Referred By: Generic ED Physician Electronically Signed By:STANFORD ERICKSON
[2021-01-06 20:37] VITALS: BP 150/98; PULSE 81; RESP 18; TEMP 37.4; O2SAT 96; BMI 34.7
[2021-01-06 21:54] LABS: MANUAL DIFF FLAG NO
[2021-01-06 21:57] LABS: Basophils Percent Auto 0.3 % (0-2); Eosinophils Absolute Auto 0.3 X10*3/uL (0.0-0.4); Eosinophils Percent Auto 2.6 % (0-4); Hematocrit 40.4 % (42-52); Hemoglobin 13.5 g/dl (14.0-18.0); Imm Gran Abs Auto 0.05 X10*3/uL (0.00-0.03); Imm Gran Pct Auto 0.5 % (0.0-0.4); Lymphocytes Absolute Auto 2.7 X10*3/uL (1.2-4.9); Lymphocytes Percent Auto 27.7 % (20-40); Mean Corpuscular HGB Conc 33.4 g/dl (31.0-36.0); Mean Corpuscular Hemoglobin 29.8 pg (27.0-33.0); Mean Corpuscular Volume 89.2 fL (80-98); Mean Platelet Volume 10.1 fL (9.4-12.4); Monocytes Absolute Auto 0.6 X10*3/uL (0.1-1.2); Monocytes Percent Auto 6.3 % (2-11); Neutrophils Absolute Auto 6.1 X10*3/uL (2.0-8.3); Neutrophils Percent Auto 62.6 % (45-73); Platelet Count 263 X10*3/uL (160-400); Red Blood Count 4.53 X10*6/uL (4.60-5.80); Red Cell Distribution Width 12.4 % (11.0-16.0); White Blood Count 9.7 X10*3/uL (4.8-10.8)
[2021-01-06 22:20] LABS: Alanine Aminotransferase 27 U/L (0-40); Albumin Level 4.1 g/dL (3.5-5.0); Alkaline Phosphatase 42 U/L (39-117); Anion Gap 13 (12-20); Aspartate Amino Transferase 15 U/L (5-37); Bilirubin Total 0.4 mg/dL (0.0-1.0); Blood Urea Nitrogen 9 mg/dL (9-16); Calcium 9.1 mg/dL (8.4-10.2); Carbon Dioxide 23 mmol/L (22-29); Chloride 108 mmol/L (96-108); Creatinine Clr Calc Pharmacy 102.9; Estimated Glomerular Filt Rate > 60; Glucose Random 180 mg/dL (60-115); Potassium 3.8 mmol/L (3.3-5.1); Sodium 140 mmol/L (135-145); Total Protein 6.7 g/dL (6.5-8.0)
[2021-01-06 22:23] LABS: Troponin-I High Sensitivity < 3.5 ng/L (<3.5-35.0)
--- NOTE | 2021-01-06 23:06 | ED_ITS ---
HPI - Chest Pain General Chief Complaint: Chest Pain Stated Complaint: chest pain Time Seen by Provider: 01/06/21 23:05 Source: patient Mode of arrival: ambulatory Limitations: no limitations History of Present Illness HPI narrative: Patient's history of COPD hypertension hyperlipidemia depression anxiety and PTSD came here for chest pain for last 3 hours patient took a nap and woke up with pain patient has similar pain in the past been admitted in 09/05 with workup negative including stress test patient feels slightly anxious describe pain on the left side of the chest increased on palpation no cough no shortness of breath pain radiates to the left arm and left leg Related Data Home Medications Medication Instructions Recorded Confirmed Anoro Ellipta 1 puff PO DAILY 08/25/20 11/08/20 aripiprazole 1 tab PO QAM 08/25/20 11/08/20 buspirone 1 tab PO DAILY 08/25/20 11/08/20 clonazepam 1 tab PO BID 08/25/20 11/08/20 folic acid 1 tab PO DAILY 08/25/20 11/08/20 hydroxyzine pamoate 1 cap PO BID PRN 08/25/20 11/08/20 oxcarbazepine 1 tab PO BID 08/25/20 11/08/20 prazosin 1 cap PO BID 08/25/20 11/08/20 zolpidem 1 tab PO BEDTIME PRN 08/25/20 11/08/20 cyanocobalamin (vitamin B-12) 1,000 mcg PO DAILY 09/10/20 11/08/20 1,000 mcg tablet,extended release oxcarbazepine 600 mg tablet 600 mg PO BID 09/10/20 11/08/20 Previous Rx's Medication Instructions Recorded albuterol sulfate 2.5 mg INHALATION TID #225 ml 06/11/20 lisinopril 5 mg tablet 5 mg PO DAILY #90 tab 08/13/20 benzonatate 100 mg capsule 100 mg PO TID PRN 7 Days #21 cap 08/20/20 blood pressure monitor #1 ea 08/20/20 fenofibrate 160 mg tablet 160 mg PO DAILY 90 Days #90 tab 08/20/20 pantoprazole 40 mg tablet,delayed 40 mg PO DAILY 90 Days #90 tab 08/20/20 release nicotine 21 mg TRANSDERMAL DAILY #30 ea 08/27/20 polyethylene glycol 3350 17 238 g PO ONCE 1 Days #238 g 09/10/20 gram/dose oral powder allopurinol 100 mg tablet 100 mg PO DAILY #30 tab 11/03/20 sodium,potassium,mag sulfates 17.5 See Rx Instructions PO .COMPLEX 12/04/20 gram-3.13 gram-1.6 gram oral soln #354 ml carisoprodol 350 mg tablet 350 mg PO TID PRN 30 Days #90 tab 12/12/20 Allergies Allergy/AdvReac Type Severity Reaction Status Date / Time bee stings Allergy Severe Anaphylaxis Verified 10/17/20 14:48 hydromorphone [From DILAUDID] AdvReac Severe VIOLENTLY Verified 10/17/20 14:48 ILL NEEDS TO EAT FIRST Review of Systems Review of Systems: Constitutional : No Weight loss, No Fever, No Chills ENT/Mouth : No sore throat, No Rhinorrhea Eyes: No Eye Pain, No Swelling Cardiovascular : +Chest Pain, no palpitations Respiratory : No Cough, No Sputum, no shortness of breath Gastrointestinal : no Nausea, No Vomiting, No Diarrhea, No abdominal Pain, no black stools Genitourinary : No Dysuria, No Urinary Frequency Musculoskeletal : No joint pain, No Myalgias, No Joint Swelling Skin : No Skin Lesions, No rash Neuro : No Weakness, No Numbness, No Dizziness, No Headache Psych : No Anxiety/Panic, No Depression Heme/Lymph: No Bruising, No Lymphadenopathy Endocrine : No Polyuria, No Polydipsia All other systems reviewed and are negative PMFSH Past Medical History Medical History COPD (chronic obstructive pulmonary disease) Essential hypertension GERD (gastroesophageal reflux disease) Gout History of pneumonia Lumbar degenerative disc disease Lymphopenia Mixed hyperlipidemia Pernicious anemia Positive colorectal cancer screening using Cologuard test Surgical History History of arthroscopy of left knee History of shoulder surgery History of surgery History of total left knee replacement Status post surgical removal of malignant neoplasm of skin Family History Family History Father Lung cancer Mother Chronic mental illness Alzheimer disease Maternal Grandmother Bone cancer Hypertension Paternal Grandmother Brain cancer Maternal Uncle Cancer Family/Other Chronic mental illness Social History Social History Household Members: None and Other Household Members Other:: 2 room mates Housing: House Alcohol intake: former Smoking Status: Current every day smoker Tobacco Type: Cigarette Packs Per Day: 1 Advance Directives: No Advance Directives Information Provided: No service: No Current occupational status: unemployed and disabled Physical Exam Vital Signs: Vital Signs: Last Vital Signs Temp 99.4 F 01/06/21 20:37 Pulse 80 01/06/21 23:30 Resp 22 H 01/06/21 23:30 BP 146/98 H 01/06/21 23:30 Pulse Ox 95 01/06/21 23:30 Body Mass Index 34.7 Appearance: Alert. Oriented X3. No acute distress. Anxious Eyes: PERRLA, No Nystagmus ENT: Pharynx normal. Oral Mucosa moist Neck: Normal inspection. Neck supple. CVS: Normal heart rate and rhythm. Pulses normal. Respiratory: No respiratory distress. Equal air entry bilateral, no wheezing/rales/rhonchi tender to left 2nd intercostal space Abdomen: Soft and nontender. Bowel sounds are present, no mass palpable, no CVA tenderness Skin: Skin warm and dry. Normal skin color. Normal skin turgor. Extremities: No lower extremity edema. No calf tenderness Neuro: Oriented X 3. No motor deficit. No sensory deficit.No cerebellar signs , cranial nerves II-XII intact MDM - Chest Pain MDM Narrative Medical decision making narrative: Patient has atypical chest pain workup was negative EKG is normal will repeat troponin in 2 hours. Patient does get this pain very often and had previous workup done which was negative Patient repeat troponin is also negative patient symptoms likely from anxiety discharge patient home Lab Data Attestation: I reviewed the patient's lab results. Result diagrams: 01/06/21 21:49 01/06/21 21:50 Labs: Lab Results 01/06/21 01/06/21 01/06/21 Range/Units 21:49 21:50 21:50 WBC 9.7 (4.8-10.8) X10*3/uL RBC 4.53 L (4.60-5.80) X10*6/uL Hgb 13.5 L (14.0-18.0) g/dl Hct 40.4 L (42-52) % MCV 89.2 (80-98) fL MCH 29.8 (27.0-33.0) pg MCHC 33.4 (31.0-36.0) g/dl RDW 12.4 (11.0-16.0) % Plt Count 263 (160-400) X10*3/uL MPV 10.1 (9.4-12.4) fL Immature Gran % (Auto) 0.5 H (0.0-0.4) % Neut % (Auto) 62.6 (45-73) % Lymph % (Auto) 27.7 (20-40) % [place] % (Auto) 6.3 (2-11) % Eos % (Auto) 2.6 (0-4) % Baso % (Auto) 0.3 (0-2) % Lymph # (Auto) 2.7 (1.2-4.9) X10*3/uL [place]linger # (Auto) 0.6 (0.1-1.2) X10*3/uL Eos # (Auto) 0.3 (0.0-0.4) X10*3/uL Baso # (Auto) 0.0 (0.0-0.2) X10*3/uL Abs Immat Gran (auto) 0.05 H (0.00-0.03) X10*3/uL Absolute Neuts (auto) 6.1 (2.0-8.3) X10*3/uL Absolute Nucleated RBC 0.000 (0.0-0.012) X10*3/uL Nucleated RBC % (auto) 0.0 (0.0-0.2) /100WBC Hold Blue Top SEE NOTE Sodium 140 (135-145) mmol/L Potassium 3.8 (3.3-5.1) mmol/L Chloride 108 (96-108) mmol/L Carbon Dioxide 23 (22-29) mmol/L Anion Gap 13 (12-20) BUN 9 (9-16) mg/dL Creatinine 1.18 (0.5-1.4) mg/dL Estim Creat Clear Calc 102.9 Estimated GFR > 60 Random Glucose 180 H (60-115) mg/dL Calcium 9.1 (8.4-10.2) mg/dL Total Bilirubin 0.4 (0.0-1.0) mg/dL AST 15 (5-37) U/L ALT 27 (0-40) U/L Alkaline Phosphatase 42 D (39-117) U/L Troponin I High Sens (<3.5-35.0) ng/L Total Protein 6.7 (6.5-8.0) g/dL Albumin 4.1 (3.5-5.0) g/dL 01/06/21 01/07/21 Range/Units 21:50 00:11 WBC (4.8-10.8) X10*3/uL RBC (4.60-5.80) X10*6/uL Hgb (14.0-18.0) g/dl Hct (42-52) % MCV (80-98) fL MCH (27.0-33.0) pg MCHC (31.0-36.0) g/dl RDW (11.0-16.0) % Plt Count (160-400) X10*3/uL MPV (9.4-12.4) fL Immature Gran % (Auto) (0.0-0.4) % Neut % (Auto) (45-73) % Lymph % (Auto) (20-40) % Bollinger % (Auto) (2-11) % Eos % (Auto) (0-4) % Baso % (Auto) (0-2) % Lymph # (Auto) (1.2-4.9) X10*3/uL [place]linger # (Auto) (0.1-1.2) X10*3/uL Eos # (Auto) (0.0-0.4) X10*3/uL Baso # (Auto) (0.0-0.2) X10*3/uL Abs Immat Gran (auto) (0.00-0.03) X10*3/uL Absolute Neuts (auto) (2.0-8.3) X10*3/uL Absolute Nucleated RBC (0.0-0.012) X10*3/uL Nucleated RBC % (auto) (0.0-0.2) /100WBC Hold Blue Top Sodium (135-145) mmol/L Potassium (3.3-5.1) mmol/L Chloride (96-108) mmol/L Carbon Dioxide (22-29) mmol/L Anion Gap (12-20) BUN (9-16) mg/dL Creatinine (0.5-1.4) mg/dL Estim Creat Clear Calc Estimated GFR Random Glucose (60-115) mg/dL Calcium (8.4-10.2) mg/dL Total Bilirubin (0.0-1.0) mg/dL AST (5-37) U/L ALT (0-40) U/L Alkaline Phosphatase (39-117) U/L Troponin I High Sens < 3.5 < 3.5 (<3.5-35.0) ng/L Total Protein (6.5-8.0) g/dL Albumin (3.5-5.0) g/dL ECG Data ECG #1: Attestation: I personally reviewed and interpreted this ECG as follows: Interpretation: Normal sinus rhythm heart rate 83 beats per minute normal intervals normal axis impression normal EKG Discharge Plan Discharge Clinical Impression: Atypical chest pain, Anxiety Patient Disposition: Home, Self-Care Instructions: Chest Pain (ED) Additional Instructions: Your workup is negative for any acute cardiac event. your symptoms likely from anxiety. Follow-up with your PCP/chief solution architect for further workup as needed Prescriptions: No Action albuterol sulfate 2.5 mg /3 mL (0.083 %) solution for nebulization 2.5 mg inhalation TID Qty: 225 RF: 3 lisinopril 5 mg tablet 5 mg PO DAILY Qty: 90 RF: 1 allopurinol 100 mg tablet 100 mg PO DAILY Qty: 30 RF: 2 Suprep Bowel Prep Kit 17.5-3.13-1.6 gram recon soln See Rx Instructions PO .COMPLEX Qty: 354 RF: 0 carisoprodol 350 mg tablet 350 mg PO TID PRN (Reason: Muscle Pain) 30 Days Qty: 90 RF: 0 oxcarbazepine 300 mg tablet 1 tab PO BID RF: 0 buspirone 10 mg tablet 1 tab PO DAILY RF: 0 clonazepam 2 mg tablet 1 tab PO BID RF: 0 folic acid 1 mg tablet 1 tab PO DAILY RF: 0 zolpidem 10 mg tablet 1 tab PO BEDTIME PRN (Reason: Insomnia) RF: 0 prazosin 2 mg capsule 1 cap PO BID RF: 0 hydroxyzine pamoate 25 mg capsule 1 cap PO BID PRN (Reason: Anxiety) RF: 0 aripiprazole 10 mg tablet 1 tab PO QAM RF: 0 Anoro Ellipta 62.5-25 mcg/actuation blister with device 1 puff PO DAILY RF: 0 nicotine 21 mg/24 hr Patch 24 Hour 21 mg transdermal DAILY Qty: 30 RF: 0 (DME) blood pressure monitor Kit See Rx Instructions .ROUTE .MEDSUPPLY Qty: 1 RF: 0 benzonatate [Tessalon Perles] 100 mg capsule 100 mg PO TID PRN (Reason: cough) 7 Days Qty: 21 RF: 0 fenofibrate 160 mg tablet 160 mg PO DAILY 90 Days Qty: 90 RF: 1 pantoprazole 40 mg tablet,delayed release (DR/EC) 40 mg PO DAILY 90 Days Qty: 90 RF: 3 cyanocobalamin (vitamin B-12) 1,000 mcg tablet extended release 1,000 mcg PO DAILY RF: 0 oxcarbazepine 600 mg tablet 600 mg PO BID RF: 0 polyethylene glycol 3350 [Miralax] 17 gram/dose powder 238 g PO ONCE 1 Days Qty: 238 RF: 0
[2021-01-06 23:30] VITALS: BP 146/98; PULSE 80; RESP 22; O2SAT 95
[2021-01-06] MEDS: Aspirin Enteric Coated 81 MG TABLET.DR 162 MG PO (23:32)
[2021-01-07 01:00] LABS: Troponin-I High Sensitivity < 3.5 ng/L (<3.5-35.0)
== END 2021-01-07 01:15 | disposition home or self-care (01) ==
PROVIDERS: Emergency Provider Internal Medicine
DX: R07.89 Other chest pain (principal); F41.9 Anxiety disorder, unspecified; J44.9 Chronic obstructive pulmonary disease, unspecified; I10 Essential (primary) hypertension; E78.5 Hyperlipidemia, unspecified; F17.210 Nicotine dependence, cigarettes, uncomplicated; Z79.899 Other long term (current) drug therapy
CPT/HCPCS: 36415; 80053; 84484; 85025; 93005; 99283; 99284

== ENCOUNTER 2021-01-16 07:50 | Day surgery (SDC) | payer OTHER, SELFPAY ==
[2020-10-17 15:24] VITALS: BMI 39.8
--- NOTE | 2020-10-21 09:12 | P.CONAN_ITS ---
HPI - Anesthesia Eval Consult details Narrative: 50yo M for Upper Endoscopy and Colonoscopy 08/[address] [facility] [place] admit with COPD exac/CAP. Seen by pcp recently with noted marked improvement in breathing. [facility] Active Problems Active Problems: All Active Problems (Updated 10/17/20 @ 15:21 by Sari Smith) Acute exacerbation of chronic obstructive pulmonary disease (Acute) Community acquired pneumonia (Acute) History of pneumonia (Acute) Positive colorectal cancer screening using Cologuard test (Acute) Gout (Acute) Essential hypertension (Acute) Lymphopenia (Acute) Mixed hyperlipidemia (Acute) Pernicious anemia (Acute) Lumbar degenerative disc disease (Acute) GERD (gastroesophageal reflux disease) (Acute) Past Medical History Medical History (Updated 10/17/20 @ 15:21 by Sari Smith) COPD (chronic obstructive pulmonary disease) Essential hypertension GERD (gastroesophageal reflux disease) Gout History of pneumonia Lumbar degenerative disc disease Lymphopenia Mixed hyperlipidemia Pernicious anemia Positive colorectal cancer screening using Cologuard test Family History Family History Father Lung cancer Mother Chronic mental illness Maternal Grandmother Hypertension Bone cancer Paternal Grandmother Brain cancer Maternal Uncle Cancer Family/Other Chronic mental illness Surgical History Surgical History (Updated 10/17/20 @ 15:21 by Sari Smith) History of arthroscopy of left knee History of shoulder surgery History of surgery History of total left knee replacement Status post surgical removal of malignant neoplasm of skin Social History Social History (Updated 10/17/20 @ 15:27 by Sari Smith) Household Members: None Alcohol intake: former Smoking Status: Former smoker Tobacco Type: Cigarette service: No Current occupational status: unemployed and disabled Meds Allergies Allergy/AdvReac Type Severity Reaction Status Date / Time bee stings Allergy Severe Anaphylaxis Verified 10/17/20 14:48 hydromorphone [From DILAUDID] AdvReac Severe VIOLENTLY Verified 10/17/20 14:48 ILL NEEDS TO EAT FIRST Home Medications Medication Instructions Recorded Confirmed Last Taken Type Anoro Ellipta 1 puff PO DAILY 08/25/20 10/17/20 Unknown History aripiprazole 1 tab PO QAM 08/25/20 10/17/20 Unknown History buspirone 1 tab PO DAILY 08/25/20 10/17/20 Unknown History clonazepam 1 tab PO BID 08/25/20 10/17/20 Unknown History folic acid 1 tab PO DAILY 08/25/20 10/17/20 Unknown History hydroxyzine pamoate 1 cap PO BID PRN 08/25/20 10/17/20 Unknown History oxcarbazepine 1 tab PO BID 08/25/20 10/17/20 Unknown History prazosin 1 cap PO BID 08/25/20 10/17/20 Unknown History zolpidem 1 tab PO BEDTIME PRN 08/25/20 10/17/20 Unknown History cyanocobalamin (vitamin B-12) 1,000 mcg PO DAILY 09/10/20 10/17/20 Unknown History 1,000 mcg tablet,extended release oxcarbazepine 600 mg tablet 600 mg PO BID 09/10/20 10/17/20 Unknown History Exam Exam Date and Time: October 21, 2020 0912 Height,Weight and Vital Signs: Height 6 ft 2 in Weight 140.614 kg Pertinent Lab Results Pertinent Lab Results: Laboratory Tests 10/08/20 10/08/20 11:35 11:35 WBC 9.2 Hgb 12.6 L Hct 37.9 L Plt Count 256 Sodium 134 L Potassium 4.7 Chloride 100 Carbon Dioxide 25 BUN 11 Creatinine 0.89 Narrative Narrative: EKG 08/2020 Normal sinus rhythm Nonspecific ST abnormality Abnormal ECG When compared with ECG of 22-AUG-2020 14:39, No significant change was found Assessment and Plan Assessment Anesthesia Assessment: Chart Reviewed
--- NOTE | 2021-01-14 14:19 | HO.ANESPROP2 ---
HPI - Anesthesia Eval Consult details Narrative: 50yo M for Upper Endoscopy and Colonoscopy Recent ED visit with atypical CP. Negative work up with EKG/trops. Similiar to previous CP with negative w/u. FORMERLY [facility], [facility] Active Problems Active Problems: All Active Problems (Updated 01/08/21 @ 00:00 by Gilbert Mead) Acute exacerbation of chronic obstructive pulmonary disease (Acute) Community acquired pneumonia (Acute) History of pneumonia (Acute) Positive colorectal cancer screening using Cologuard test (Acute) Gout (Acute) Essential hypertension (Acute) Lymphopenia (Acute) Mixed hyperlipidemia (Acute) Pernicious anemia (Acute) Lumbar degenerative disc disease (Acute) GERD (gastroesophageal reflux disease) (Acute) Past Medical History Medical History COPD (chronic obstructive pulmonary disease) Essential hypertension GERD (gastroesophageal reflux disease) Gout History of pneumonia Lumbar degenerative disc disease Lymphopenia Mixed hyperlipidemia Pernicious anemia Positive colorectal cancer screening using Cologuard test Family History Family History Father Lung cancer Mother Chronic mental illness Alzheimer disease Maternal Grandmother Bone cancer Hypertension Paternal Grandmother Brain cancer Maternal Uncle Cancer Family/Other Chronic mental illness Surgical History Surgical History History of arthroscopy of left knee History of shoulder surgery History of surgery History of total left knee replacement Status post surgical removal of malignant neoplasm of skin Social History Social History Household Members: None and Other Household Members Other:: 2 room mates Housing: House Do you presently have visiting nurse or other home services: No Alcohol intake: former Cigarette Packs Per Day: 1 service: No Current occupational status: unemployed and disabled Meds Allergies Allergy/AdvReac Type Severity Reaction Status Date / Time bee stings Allergy Severe Anaphylaxis Verified 01/16/21 08:29 hydromorphone [From DILAUDID] AdvReac Severe VIOLENTLY Verified 01/16/21 08:29 ILL NEEDS TO EAT FIRST Home Medications Medication Instructions Recorded Confirmed Last Taken Type Anoro Ellipta 1 puff PO DAILY 08/25/20 11/08/20 Unknown History aripiprazole 1 tab PO QAM 08/25/20 11/08/20 Unknown History buspirone 1 tab PO DAILY 08/25/20 11/08/20 01/16/21 03:30 History clonazepam 1 tab PO BID 08/25/20 11/08/20 01/16/21 03:30 History folic acid 1 tab PO DAILY 08/25/20 11/08/20 01/16/21 03:30 History hydroxyzine pamoate 1 cap PO BID PRN 08/25/20 11/08/20 Unknown History oxcarbazepine 1 tab PO BID 08/25/20 11/08/20 01/16/21 03:30 History prazosin 1 cap PO BID 08/25/20 11/08/20 Unknown History zolpidem 1 tab PO BEDTIME PRN 08/25/20 11/08/20 Unknown History cyanocobalamin (vitamin B-12) 1,000 mcg PO DAILY 09/10/20 11/08/20 Unknown History 1,000 mcg tablet,extended release oxcarbazepine 600 mg tablet 600 mg PO BID 09/10/20 11/08/20 01/16/21 03:30 History Exam Exam Date and Time: January 14, 2021 1419 Height,Weight and Vital Signs: Height 6 ft 2 in Weight 140.614 kg Pertinent Lab Results Pertinent Lab Results: Laboratory Tests 01/06/21 01/06/21 21:49 21:50 WBC 9.7 Hgb 13.5 L Hct 40.4 L Plt Count 263 Sodium 140 Potassium 3.8 Chloride 108 Carbon Dioxide 23 BUN 9 Creatinine 1.18 Narrative Narrative: EKG 12/2020 Vent. Rate : 083 BPM Atrial Rate : 083 BPM P-R Int : 128 ms QRS Dur : 078 ms QT Int : 374 ms P-R-T Axes : 037 000 043 degrees QTc Int : 439 ms Normal sinus rhythm Normal ECG When compared with ECG of 25-AUG-2020 15:19, No significant change was found Assessment and Plan Assessment Anesthesia Assessment: Chart Reviewed
--- NOTE | 2021-01-16 08:57 | P.HPSUR_ITS ---
Pre-Procedural Eval Section B Chief Complaint: fecal abnormalities,reflux disease Relevant Family History (Specify if Yes): No Relevant Social History: None (ex smoker) Present Medications: see Short Stay Collaborative assessment Medical History: Significant History (COPD (chronic obstructive pulmonary disease) Essential hypertension GERD (gastroesophageal reflux disease) Gout History of pneumonia Lumbar degenerative disc disease Lymphopenia Mixed hy perlipidemia Pernicious anemia Positive colorectal cancer screening using Cologuard test) History of Previous Operations: Relevant previous surgery/procedure and date(s) (History of arthroscopy of left knee History of shoulder surgery History of surgery History of total left knee replacement Status post surgical removal of malignant neoplasm of skin) Allergies: Allergies Allergy/AdvReac Type Severity Reaction Status Date / Time bee stings Allergy Severe Anaphylaxis Verified 01/16/21 08:29 hydromorphone [From DILAUDID] AdvReac Severe VIOLENTLY Verified 01/16/21 08:29 ILL NEEDS TO EAT FIRST Review of Systems Sugical H&P ROS: Negative: Constitution, Cardiovascular, Respiratory, Neurological, Psychiatric, Hem-Onc, Allergic/Immunologic, Gastrointestinal, Genitourinary, Musculoskeletal, Integumentary, Endocrine and Eyes/Ears/Nose/Throat Exam Surgical H&P Exam: Normal: HEENT, Normal: Heart, Normal: Lungs, Normal: Extremities, Normal: Abdomen, Normal: Skin and Normal: Neurological Plan Diagnosis/Plan: Unchanged I have reviewed the history and physical and performed a pertinent physical examination on my patient. No changes have occurred unless specified.
[2021-01-16 08:58] VITALS: BP 128/87; PULSE 73; RESP 18; TEMP 36.3; O2SAT 97
[2021-01-16] MEDS: Lactated Ringers 1,000 ML 100 ML IVCONT (09:11)
--- NOTE | 2021-01-16 09:30 | PM.OP ---
Brief Operative Note Date of Service: 01/16/21 Pre-op diagnosis: GERD, pos cologuard Post-op diagnosis: same Procedure: see op note Surgeon: Laureano Masters MD Anesthesia: MAC Was an Lunch Counter Manager used for this Procedure?: No Estimated blood loss (mL): 0 Condition: stable Disposition: PACU
--- NOTE | 2021-01-16 09:31 | W.PM.OPN ---
Operative Note Operative Note Date of Service: 01/16/21 Narrative: Operative Information Procedure Description: EGD, Colonoscopy FLEXIBLE TRANSORAL UPPER GASTROINTESTINAL ENDOSCOPY AND COLONOSCOPY PROCEDURE NOTE UPPER ENDOSCOPY Consent: Indications for the procedure and potential complications of bleeding, perforation, reaction to medications and missed diagnosis were discussed with the patient and informed consent was obtained. Instrument: Olympus GIF H 190 J mid size upper endoscope Monitoring: Vital signs and clinical assessment, continuous EKG monitoring, Pulse oximetry, Carbon Dioxide monitoring and blood pressure monitoring were done throughout the procedure. Procedure: The patient was placed in the left lateral decubitis position and pre-procedure medications were administered and a bite block was placed. The endoscope was inserted into the mouth and advanced under direct vision to the third part of duodenum. A careful inspection was made as the upper endoscope was withdrawn including a retroflexed examination of the proximal stomach; Findings and interventions are described below. Findings: Larynx:normal Esophagus: GE junction at 40 cm, diaphragm hiatus at 40 cm, mild erythema GEJ, bx taken as well as random esophagus in separate jars Stomach: mild patchy erythematous mucosa. Biopsies were obtained. Grade 2 flap valve on retroflexed examination of the cardia. Duodenum: mild bulbar duodenitis, bx taken Intervention: Biopsies as noted above COLONOSCOPY Instrument: Olympus variable stiffness adult scope 190L Colonoscopy Monitoring: Vital signs and clinical assessment, continuous EKG monitoring, Pulse oximetry, Carbon Dioxide monitoring and blood pressure monitoring were done throughout the procedure. Colon withdrawal time was 16 minutes. Procedure: The patient was placed in the left lateral decubitis position and pre-procedure medications were administered. After a digital rectal examination of the ano-rectum, the video colonoscope was inserted into the rectum and advanced through the colon to the cecum/TI. The colonoscope was slowly withdrawn in a retrograde panoramic fashion and the colon mucosa was carefully examined including a retroflexed view of the rectum. Findings and interventions are described below. Procedure Difficulty:easy Findings: severe diverticulosis, variable sized tics seen thru out colon Terminal Ileum-normal Cecum:normal Ascending Colon: normal Transverse Colon -8-10 mm sessile polyp removed with cold snare, not retrievable after removed Descending Colon:normal Sigmoid Colon: 8-10 mm sessile polyp removed with cold snare Rectosigmoid junction- 12-14 mm pedunculated polyp removed with cold snare. Prior to removal x 1 clip applied to base of stalk and one more applied after the polypectomy Rectum: Retroflexion with small internal hemorrhoids, grade I Anorectum - normal Colon preparation: [place] Bowel Preparation Scale Right colon; 2 Transverse colon: 3 Left colon; 3 (0 = Unprepared colon segment with mucosa not seen due to solid stool that cannot be cleared. 1 = Portion of mucosa of the colon segment seen, but other areas of the colon segment not well seen due to staining, residual stool and/or opaque liquid. 2 = Minor amount of residual staining, small fragments of stool and/or opaque liquid, but mucosa of colon segment seen well. 3 = Entire mucosa of colon segment seen well with no residual staining, small fragments of stool or opaque liquid) Impression and Post Procedure Diagnosis: Endoscopy Findings: esophagitis gastritis duodenitis Colonoscopy Findings: polyps internal hemorrhoids diverticular disease Plan: Await Pathology results Repeat Colonoscopy in 3 years or earlier if clinically indicated or if any concerning findings on pathology High fiber diet leaflet avoid straining at stool, epsom salts and sitz bath, anusol supps or cream as needed Above findings were reviewed with the patient and relevant handouts were provided if indicated.
[2021-01-16 10:04] VITALS: BP 115/68; PULSE 77; RESP 16; TEMP 36.3; O2SAT 96
[2021-01-16 10:19] VITALS: BP 126/78; PULSE 73; RESP 18; O2SAT 96
== END 2021-01-16 11:02 | disposition home or self-care (01) ==
PROVIDERS: PCP Internal Medicine; Visit Provider Internal Medicine Gastroenterology
PROC: (CPT 45385; principal; 2021-01-16 09:20)
DX: R19.5 Other fecal abnormalities (principal); D12.5 Benign neoplasm of sigmoid colon; K63.5 Polyp of colon; K57.30 Diverticulosis of large intestine without perforation or abscess without bleeding; K64.0 First degree hemorrhoids; K21.9 Gastro-esophageal reflux disease without esophagitis; K29.70 Gastritis, unspecified, without bleeding; K29.80 Duodenitis without bleeding; K22.8 Other specified diseases of esophagus; J44.9 Chronic obstructive pulmonary disease, unspecified; I10 Essential (primary) hypertension; D72.810 Lymphocytopenia; D51.0 Vitamin B12 deficiency anemia due to intrinsic factor deficiency; Z79.899 Other long term (current) drug therapy; F17.210 Nicotine dependence, cigarettes, uncomplicated; Z96.652 Presence of left artificial knee joint; Z85.828 Personal history of other malignant neoplasm of skin; Z66 Do not resuscitate
CPT/HCPCS: 45385; 43239; 88305; 88342; J2250

== ENCOUNTER 2021-05-15 07:29 | Emergency (ER) | payer OTHER, SELFPAY ==
--- NOTE | ~2021-05-15 | XR_ITS ---
EXAMINATION: XR CHEST CLINICAL INFORMATION: Cough and SOB. COMPARISON: None TECHNIQUE: Frontal view of the chest was obtained. FINDINGS: No significant abnormality is noted involving the heart, lungs, mediastinum, bony thorax or soft tissues. XR/XR chest 1V IMPRESSION: Unremarkable chest examination.
[2021-05-15 07:41] VITALS: BP 172/93; PULSE 85; RESP 14; TEMP 37; O2SAT 94; BMI 35.9
--- NOTE | 2021-05-15 07:51 | PC.NURSE ---
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 HE REACTS TO TOUCH BY HITTING AND HE DOESN'T WANT TO HURT ANYONE
--- NOTE | 2021-05-15 08:08 | ED_ITS ---
HPI - SOB/Dyspnea General Chief Complaint: Dyspnea Stated Complaint: diff breathing Time Seen by Provider: 05/15/21 08:05 Source: patient Mode of arrival: ambulatory Limitations: no limitations History of Present Illness HPI Narrative: 51 y/o male with history of COPD, CAP, HLA, gout, GERD who presents to the ER with two days of increasing SOB and chest discomfort when he coughs. He has been bringing up narvaez phlegm. He has been using his nebulizer at home with improvement. He reports history of PNA and bronchitis and know to come get evaluated before his breathing gets too bad. He denies fever, chills. He has no chest pain at rest or exertion, only with coughing. He reports coughing so hard this morning he vomited. He is fully vaccinated against COVID-19. MD elicited complaint: shortness of breath, cough and chest pain Pertinent past history: COPD Onset (ago): day(s) (2) Context: recent illness Timing: intermittent Severity: moderate Exacerbating factors: coughing Relieving factors: rest and bronchodilators Known history of: COPD Associated symptoms: chest pain, cough and sputum production Treatment prior to arrival: none Related Data Home oxygen amount: none Home Medications Medication Instructions Recorded Confirmed aripiprazole 10 mg tablet 1 tab PO QAM 08/25/20 01/27/21 buspirone 10 mg tablet 1 tab PO DAILY 08/25/20 01/27/21 clonazepam 2 mg tablet 1 tab PO BID 08/25/20 01/27/21 hydroxyzine pamoate 25 mg capsule 1 cap PO BID PRN 08/25/20 01/27/21 oxcarbazepine 300 mg tablet 1 tab PO BID 08/25/20 01/27/21 prazosin 2 mg capsule 1 cap PO BID 08/25/20 01/27/21 zolpidem 10 mg tablet 1 tab PO BEDTIME PRN 08/25/20 01/27/21 cyanocobalamin (vitamin B-12) 1,000 mcg PO DAILY 09/10/20 01/27/21 1,000 mcg tablet,extended release oxcarbazepine 600 mg tablet 600 mg PO BID 09/10/20 01/27/21 Previous Rx's Medication Instructions Recorded blood pressure monitor #1 ea 08/20/20 allopurinol 100 mg tablet 100 mg PO DAILY #30 tab 11/03/20 fenofibrate 160 mg tablet 160 mg PO DAILY 90 Days #90 tab 02/18/21 lisinopril 5 mg tablet 5 mg PO DAILY #90 tab 02/18/21 umeclidinium 62.5 mcg-vilanterol 1 ea PO DAILY #60 cap 02/20/21 25 mcg/actuation powdr for inhalation (Anoro Ellipta) folic acid 1 mg tablet 1 mg PO DAILY #30 tab 02/26/21 albuterol sulfate 2.5 mg INHALATION TID #225 ml 05/12/21 pantoprazole 40 mg tablet,delayed 40 mg PO DAILY 90 Days #90 tab 05/12/21 release albuterol sulfate 90 mcg/actuation 1 inh INHALATION QID PRN #6.7 g 05/15/21 aerosol inhaler (ProAir HFA) azithromycin 250 mg tablet See Rx Instructions .ROUTE 05/15/21 (Zithromax Z-Ge) .COMPLEX #6 tab benzonatate 100 mg capsule 100 mg PO TID PRN #30 cap 05/15/21 (Tessalon Tyshawn) carisoprodol 350 mg tablet 350 mg PO TID PRN 30 Days #90 tab 05/15/21 prednisone 20 mg tablet 40 mg PO DAILY #10 tab 05/15/21 Allergies Allergy/AdvReac Type Severity Reaction Status Date / Time bee stings Allergy Severe Anaphylaxis Verified 01/27/21 16:05 hydromorphone [From DILAUDID] AdvReac Severe VIOLENTLY Verified 01/27/21 16:05 ILL NEEDS TO EAT FIRST Review of Systems Review of Systems: Constitutional: No Fever, No Chills ENT/Mouth: No sore throat, No Rhinorrhea, No Swallowing Difficulty Cardiovascular: + Chest Pain, + SOB, No Orthopnea, No Edema Respiratory: + Cough, + Sputum, No Wheezing, No dyspnea Gastrointestinal: + Nausea, + Vomiting, No Diarrhea, No abdominal Pain Genitourinary: No Dysuria, No Urinary Frequency, No Hematuria Musculoskeletal: No joint pain, No Myalgias Skin: No Skin Lesions, No rash Neuro: No Weakness, No Numbness, No Dizziness, No Headache Psych: No Anxiety/Panic, No Depression Heme/Lymph: No Bruising, No Lymphadenopathy Endocrine: No Polyuria, No Polydipsia PMFSH Past Medical History Medical History COPD (chronic obstructive pulmonary disease) Essential hypertension GERD (gastroesophageal reflux disease) Gout History of pneumonia Lumbar degenerative disc disease Lymphopenia Mixed hyperlipidemia Pernicious anemia Positive colorectal cancer screening using Cologuard test Surgical History History of arthroscopy of left knee History of shoulder surgery History of surgery History of total left knee replacement Status post surgical removal of malignant neoplasm of skin Family History Family History Father Lung cancer Mother Chronic mental illness Alzheimer disease Maternal Grandmother Bone cancer Hypertension Paternal Grandmother Brain cancer Maternal Uncle Cancer Family/Other Chronic mental illness Social History Social History (Updated 01/27/21 @ 15:36 by LILIYA Andrea) Household Members: None and Other Household Members Other:: 2 room mates Housing: House Do you presently have visiting nurse or other home services: No Alcohol intake: former Patient Tobacco Use Status: Former Tobacco user Tobacco use type: Cigarette Cigarette Packs Per Day: 1 e-Cigarette/Vaping Use: Never Used Second Hand Smoke Exposure: No Advance Directives: No service: No Current occupational status: unemployed and disabled Physical Exam Vital Signs: Vital Signs: Last Vital Signs Temp 98.6 F 05/15/21 07:41 Pulse 85 05/15/21 07:41 Resp 14 05/15/21 07:41 BP 172/93 H 05/15/21 07:41 Pulse Ox 94 05/15/21 07:41 Body Mass Index 35.9 Appearance: Alert. Oriented X3. No acute distress. Eyes: Pupils equal, round and reactive to light. ENT: Pharynx normal. Neck: Normal inspection. Neck supple. CVS: Normal heart rate and rhythm. Pulses normal. Chest wall tenderness throughout Respiratory: No respiratory distress. Breath sounds normal. Abdomen: Soft and nontender. +BS x4 Skin: Skin warm and dry. Normal skin color. Normal skin turgor. No rashes. Extremities: No lower extremity edema. Negative Homans sign Neuro: Oriented X 3. No motor deficit. No sensory deficit. Course Course Course Narrative: 51 yo male with history of COPD and history of both pneumonia and bronchitis presenting with productive cough and SOB x2 days. He has post tussive emesis event this morning that prompted ER evaluation. He is not hypoxic, no respiratory distress, no wheezing or rhonchi on exam. Will get CXR and COVID swab. Reevaluation(s) Reevaluation #1: CXR clear. COVID negative. Will plan to tret for acute bronc hitis with z-apck, 5 days of prednisone, antitussive. He is requesting refill of tessalon and albuterol inhaler. He agrees to follow up with his doctor within a week. Stable for d/c home. MDM - SOB/Dyspnea Lab Data Labs: Lab Results 05/15/21 Range/Units 08:24 COVID-19 ([facility]) Negative (Negative) COVID-19 Clin Com See Note Critical Care Time Critical Care Time Critical Care Time: No Discharge Plan Discharge Clinical Impression: Bronchitis Patient Disposition: Home, Self-Care Instructions: Acute Bronchitis (ED) Additional Instructions: Your chest x-ray was normal. You were negative for COVID-19. Take the prescribed medications for probable acute bronchitis Follow up with your doctor within 1 week. If you develop new or worsening symptoms call 911 or come back to the ER for further evaluation. Prescriptions: New prednisone 20 mg tablet 40 mg PO DAILY Qty: 10 RF: 0 azithromycin [Zithromax Z-Ge] 250 mg tablet See Rx Instructions .ROUTE .COMPLEX Qty: 6 RF: 0 albuterol sulfate [ProAir HFA] 90 mcg/actuation HFA aerosol inhaler 1 inh inhalation QID PRN (Reason: shortness of breath or wheezing) Qty: 6.7 RF: 0 benzonatate [Tessalon Perles] 100 mg capsule 100 mg PO TID PRN (Reason: cough) Qty: 30 RF: 0 No Action allopurinol 100 mg tablet 100 mg PO DAILY Qty: 30 RF: 2 lisinopril 5 mg tablet 5 mg PO DAILY Qty: 90 RF: 1 fenofibrate 160 mg tablet 160 mg PO DAILY 90 Days Qty: 90 RF: 1 umeclidinium-vilanterol [Anoro Ellipta] 62.5-25 mcg/actuation blister with device 1 ea PO DAILY Qty: 60 RF: 8 folic acid 1 mg tablet 1 mg PO DAILY Qty: 30 RF: 11 albuterol sulfate 2.5 mg /3 mL (0.083 %) solution for nebulization 2.5 mg inhalation TID Qty: 225 RF: 3 pantoprazole 40 mg tablet,delayed release (DR/EC) 40 mg PO DAILY 90 Days Qty: 90 RF: 3 carisoprodol 350 mg tablet 350 mg PO TID PRN (Reason: Muscle Pain) 30 Days Qty: 90 RF: 0 oxcarbazepine 300 mg tablet 1 tab PO BID RF: 0 buspirone 10 mg tablet 1 tab PO DAILY RF: 0 clonazepam 2 mg tablet 1 tab PO BID RF: 0 zolpidem 10 mg tablet 1 tab PO BEDTIME PRN (Reason: Insomnia) RF: 0 prazosin 2 mg capsule 1 cap PO BID RF: 0 hydroxyzine pamoate 25 mg capsule 1 cap PO BID PRN (Reason: Anxiety) RF: 0 aripiprazole 10 mg tablet 1 tab PO QAM RF: 0 (DME) blood pressure monitor Kit See Rx Instructions .ROUTE .MEDSUPPLY Qty: 1 RF: 0 cyanocobalamin (vitamin B-12) 1,000 mcg tablet extended release 1,000 mcg PO DAILY RF: 0 oxcarbazepine 600 mg tablet 600 mg PO BID RF: 0 Referrals: Yulissa Dempsey MD [Primary Care Provider] - 1 week
[2021-05-15 08:43] LABS: COVID-19 Test Negative (Negative)
[2021-05-15] MEDS: Benzonatate 100 MG CAPSULE 200 MG PO (10:05)
[2021-05-15] MEDS: Ibuprofen 600 MG TABLET PO (10:05)
== END 2021-05-15 10:14 | disposition home or self-care (01) ==
PROVIDERS: Physician Assistant; Emergency Provider Emergency Medicine Emergency Medical Services; PCP Internal Medicine
DX: J40 Bronchitis, not specified as acute or chronic (principal); R06.02 Shortness of breath; Z20.822 Contact with and (suspected) exposure to COVID-19; J44.9 Chronic obstructive pulmonary disease, unspecified; Z79.899 Other long term (current) drug therapy; Z87.891 Personal history of nicotine dependence
CPT/HCPCS: 36415; 71045; 87635; 99283

== ENCOUNTER 2021-05-16 09:49 | Outpatient (REF) | payer OTHER, SELFPAY ==
[2021-05-16 10:07] LABS: MANUAL DIFF FLAG NO
[2021-05-16 10:43] LABS: Basophils Percent Auto 0.1 % (0-2); Hematocrit 44.3 % (42-52); Hemoglobin 14.6 g/dl (14.0-18.0); Imm Gran Abs Auto 0.21 X10*3/uL (0.00-0.03); Imm Gran Pct Auto 1.5 % (0.0-0.4); Lymphocytes Absolute Auto 0.7 X10*3/uL (1.2-4.9); Lymphocytes Percent Auto 5.2 % (20-40); Mean Corpuscular Hemoglobin 29.9 pg (27.0-33.0); Mean Corpuscular Volume 90.8 fL (80-98); Mean Platelet Volume 10.7 fL (9.4-12.4); Monocytes Absolute Auto 0.6 X10*3/uL (0.1-1.2); Monocytes Percent Auto 4.3 % (2-11); Neutrophils Absolute Auto 12.4 X10*3/uL (2.0-8.3); Neutrophils Percent Auto 88.9 % (45-73); Platelet Count 258 X10*3/uL (160-400); Red Blood Count 4.88 X10*6/uL (4.60-5.80); Red Cell Distribution Width 13.1 % (11.0-16.0)
[2021-05-16 11:03] LABS: Alanine Aminotransferase 19 U/L (0-40); Albumin Level 4.5 g/dL (3.5-5.0); Alkaline Phosphatase 45 U/L (39-117); Anion Gap 13 (12-20); Aspartate Amino Transferase 13 U/L (5-37); Bilirubin Total 0.4 mg/dL (0.0-1.0); Blood Urea Nitrogen 10 mg/dL (9-16); Calcium 9.7 mg/dL (8.4-10.2); Carbon Dioxide 23 mmol/L (22-29); Chloride 108 mmol/L (96-108); Cholesterol 150 mg/dL; Estimated Glomerular Filt Rate > 60; Glucose Fasting 166 mg/dL (60-99); HDL Cholesterol 39 mg/dL; LDL Cholesterol Calculated 85 mg/dl; Potassium 4.6 mmol/L (3.3-5.1); Sodium 139 mmol/L (135-145); Total Protein 7.3 g/dL (6.5-8.0); Triglycerides 134 mg/dL
[2021-05-16 11:34] LABS: Folate 12.7 ng/mL (> or = 4.0); Vitamin B12 272 pg/mL (200-900)
[2021-05-22 14:26] LABS: Vitamin D 25-OH, D2 <4 ng/mL; Vitamin D 25-OH, D3 25 ng/mL; Vitamin D 25-OH, Total 25 ng/mL (30-100)
== END 2021-05-16 09:50 | disposition home or self-care (01) ==
LOC: HO.LAB 09:49
PROVIDERS: PCP Internal Medicine; Visit Provider Internal Medicine
DX: D64.9 Anemia, unspecified (principal); I10 Essential (primary) hypertension; E78.5 Hyperlipidemia, unspecified; M10.9 Gout, unspecified; D51.0 Vitamin B12 deficiency anemia due to intrinsic factor deficiency; E55.9 Vitamin D deficiency, unspecified
CPT/HCPCS: 36415; 80053; 80061; 82306; 82607; 82746; 84550; 85025

== ENCOUNTER 2021-05-16 10:08 | Outpatient (REF) | payer OTHER, SELFPAY | END 2021-05-16 10:09 | disposition home or self-care (01) | LOC: HO.LAB 10:08 | PROVIDERS: PCP Internal Medicine; Visit Provider Internal Medicine | DX: Z20.822 Contact with and (suspected) exposure to COVID-19 (principal) | CPT/HCPCS: C9803; U0003; U0005 ==

== ENCOUNTER 2021-05-22 12:45 | Emergency (ER) | payer OTHER, SELFPAY ==
--- NOTE | ~2021-05-22 | XR_ITS ---
EXAMINATION: XR CHEST CLINICAL INFORMATION: Cough COMPARISON: Previous chest x-ray 05/15/2021 TECHNIQUE: 2 views of the chest were obtained. FINDINGS: The cardiac and mediastinal contours are stable. There is slight elevation of the right hemidiaphragm that is unchanged. The lungs are clear. There is no pleural effusion or pneumothorax. There are degenerative changes of the spine. XR/XR chest 2V IMPRESSION: No evidence for acute disease in the chest.
[2021-05-22 14:23] VITALS: BP 144/99; PULSE 82; RESP 18; TEMP 36.8; O2SAT 95; BMI 30.8
[2021-05-22 14:26] VITALS: BP 144/99; PULSE 78; RESP 18; TEMP 36.8; O2SAT 96; BMI 30.8
[2021-05-22 15:57] LABS: MANUAL DIFF FLAG NO
[2021-05-22 15:58] LABS: Basophils Percent Auto 0.3 % (0-2); Eosinophils Absolute Auto 0.2 X10*3/uL (0.0-0.4); Hematocrit 42.2 % (42-52); Hemoglobin 13.8 g/dl (14.0-18.0); Imm Gran Abs Auto 0.17 X10*3/uL (0.00-0.03); Imm Gran Pct Auto 1.6 % (0.0-0.4); Lymphocytes Percent Auto 28.6 % (20-40); Mean Corpuscular HGB Conc 32.7 g/dl (31.0-36.0); Mean Corpuscular Hemoglobin 29.6 pg (27.0-33.0); Mean Corpuscular Volume 90.6 fL (80-98); Mean Platelet Volume 9.9 fL (9.4-12.4); Monocytes Absolute Auto 0.6 X10*3/uL (0.1-1.2); Neutrophils Absolute Auto 6.6 X10*3/uL (2.0-8.3); Neutrophils Percent Auto 61.5 % (45-73); Platelet Count 272 X10*3/uL (160-400); Red Blood Count 4.66 X10*6/uL (4.60-5.80); Red Cell Distribution Width 12.8 % (11.0-16.0); White Blood Count 10.6 X10*3/uL (4.8-10.8)
[2021-05-22 16:12] LABS: Alanine Aminotransferase 17 U/L (0-40); Alkaline Phosphatase 47 U/L (39-117); Anion Gap 10 (12-20); Aspartate Amino Transferase 14 U/L (5-37); Bilirubin Total 0.3 mg/dL (0.0-1.0); Blood Urea Nitrogen 7 mg/dL (9-16); Calcium 9.4 mg/dL (8.4-10.2); Carbon Dioxide 30 mmol/L (22-29); Chloride 105 mmol/L (96-108); Estimated Glomerular Filt Rate > 60; Glucose Random 95 mg/dL (60-115); Potassium 4.4 mmol/L (3.3-5.1); Sodium 141 mmol/L (135-145); Total Protein 6.6 g/dL (6.5-8.0)
[2021-05-22 16:38] LABS: Influenza A PCR NEGATIVE (Negative); Influenza B PCR NEGATIVE (Negative); Resp Syncy Virus RNA Qual PCR POSITIVE (Negative); SARS COV2 PCR INHOUSE NEGATIVE (Negative)
--- NOTE | 2021-05-22 17:22 | ED_ITS ---
HPI - General Adult General Chief complaint: Upper Respiratory Symptoms Stated complaint: congestion Time Seen by Provider: 05/22/21 14:44 Source: patient Limitations: no limitations History of Present Illness HPI narrative: This is a 51-year-old male who complains of persistent cough, chest and nasal congestion which started over a week ago. The patient was seen here about a week ago was put on prednisone, Zithromax, Tessalon Perles. Patient reports that still has a cough and has some left chest wall pain in his posterolateral chest from coughing. He denies any recent fever. He states that he has quit smoking. He notes he does have a history of pneumonia. States he completed the of 4 day course of antibiotics.. Cough is dry. Related Data Home Medications Medication Instructions Recorded Confirmed aripiprazole 10 mg tablet 1 tab PO QAM 08/25/20 01/27/21 buspirone 10 mg tablet 1 tab PO DAILY 08/25/20 01/27/21 clonazepam 2 mg tablet 1 tab PO BID 08/25/20 01/27/21 hydroxyzine pamoate 25 mg capsule 1 cap PO BID PRN 08/25/20 01/27/21 oxcarbazepine 300 mg tablet 1 tab PO BID 08/25/20 01/27/21 prazosin 2 mg capsule 1 cap PO BID 08/25/20 01/27/21 zolpidem 10 mg tablet 1 tab PO BEDTIME PRN 08/25/20 01/27/21 cyanocobalamin (vitamin B-12) 1,000 mcg PO DAILY 09/10/20 01/27/21 1,000 mcg tablet,extended release oxcarbazepine 600 mg tablet 600 mg PO BID 09/10/20 01/27/21 Previous Rx's Medication Instructions Recorded blood pressure monitor #1 ea 08/20/20 allopurinol 100 mg tablet 100 mg PO DAILY #30 tab 11/03/20 fenofibrate 160 mg tablet 160 mg PO DAILY 90 Days #90 tab 02/18/21 lisinopril 5 mg tablet 5 mg PO DAILY #90 tab 02/18/21 umeclidinium 62.5 mcg-vilanterol 1 ea PO DAILY #60 cap 02/20/21 25 mcg/actuation powdr for inhalation (Anoro Ellipta) folic acid 1 mg tablet 1 mg PO DAILY #30 tab 02/26/21 albuterol sulfate 2.5 mg INHALATION TID #225 ml 05/12/21 pantoprazole 40 mg tablet,delayed 40 mg PO DAILY 90 Days #90 tab 05/12/21 release albuterol sulfate 90 mcg/actuation 1 inh INHALATION QID PRN #6.7 g 05/15/21 aerosol inhaler (ProAir HFA) azithromycin 250 mg tablet See Rx Instructions .ROUTE 05/15/21 (Zithromax Z-Ge) .COMPLEX #6 tab benzonatate 100 mg capsule 100 mg PO TID PRN #30 cap 05/15/21 (Tessalon Perlalpa) carisoprodol 350 mg tablet 350 mg PO TID PRN 30 Days #90 tab 05/15/21 prednisone 20 mg tablet 40 mg PO DAILY #10 tab 05/15/21 benzonatate 100 mg capsule 200 mg PO TID PRN #30 cap 05/22/21 (Tessalon Perlalpa) bvskqhlkrxxsvbf-wncvtsfbloeclax-CT 7.5 ml PO Q4-6H PRN #473 ml 05/22/21 2 mg-30 mg-10 mg/5 mL oral syrup (Bromfed DM) Allergies Allergy/AdvReac Type Severity Reaction Status Date / Time bee stings Allergy Severe Anaphylaxis Verified 05/22/21 14:23 hydromorphone [From DILAUDID] AdvReac Severe VIOLENTLY Verified 05/22/21 14:23 ILL NEEDS TO EAT FIRST Review of Systems Review of Systems: Yes all other systems are reviewed and are negative ENT: Reports nasal congestion Cardiovascular: Cardiovascular: Reports dyspnea Respiratory: Respiratory: Reports cough and Reports dyspnea Neurologic: Denies Sensory deficit (Neuro) [facility] Past Medical History Medical History COPD (chronic obstructive pulmonary disease) Essential hypertension GERD (gastroesophageal reflux disease) Gout History of pneumonia Lumbar degenerative disc disease Lymphopenia Mixed hyperlipidemia Pernicious anemia Positive colorectal cancer screening using Cologuard test Surgical History History of arthroscopy of left knee History of shoulder surgery History of surgery History of total left knee replacement Status post surgical removal of malignant neoplasm of skin Family History Family History Father Lung cancer Mother Chronic mental illness Alzheimer disease Maternal Grandmother Bone cancer Hypertension Paternal Grandmother Brain cancer Maternal Uncle Cancer Family/Other Chronic mental illness Social History Social History (Updated 01/27/21 @ 15:36 by LILIYA Andrea) Household Members: None and Other Household Members Other:: 2 room mates Housing: House Do you presently have visiting nurse or other home services: No Alcohol intake: former Patient Tobacco Use Status: Former Tobacco user Tobacco use type: Cigarette Cigarette Packs Per Day: 1 e-Cigarette/Vaping Use: Never Used Second Hand Smoke Exposure: No Advance Directives: No Advance Directives Information Provided: No service: No Current occupational status: unemployed and disabled Physical Exam Vital Signs: Vital Signs: Last Vital Signs Temp 98.3 F 05/22/21 14:26 Pulse 78 05/22/21 14:26 Resp 18 05/22/21 14:26 BP 144/99 H 05/22/21 14:26 Pulse Ox 96 05/22/21 14:26 Body Mass Index 30.8 Const: General: cooperative, no acute distress and alert Orientation/consciousness: patient oriented x3 HENMT: Head: Yes normal to inspection Eyes: General: appearance normal, both eyes and all related structures Eyelids: Yes eyelids normal Conjunctivae: conjunctivae normal Pupils: Equal, round and reactive pupils present Neck: Neck: Yes normal visual inspection and Yes supple Chest: Chest palpation & inspection: normal inspection of the chest Resp: Effort & Inspection: normal respiratory effort Auscultation: clear to auscultation bilaterally Cardio: Rate: regular rate Rhythm: regular rhythm Heart sounds: S1 normal heart sound present, S2 normal heart sound present, no gallops, no murmurs and no rubs GI: Palpation (GI): Soft to palpation, nontender and Other GI palpation findings present (Non-distended) Auscultation: normal bowel sounds Skin: General skin exam: no rashes or lesions noted Neuro: General: patient oriented x3, no focal motor deficits and CN's II-XI intact bilaterally Cranial nerves: Yes Equal, round and reactive pupils present Cognition (Neuro): normal cognition Motor exam (neuro): 5/5 motor strength present throughout Sensory Exam: No Sensory deficit (Neuro) Extrem: General: Yes normal to inspection and Yes no pedal edema Psych: Appearance: grossly normal Affect: normal affect Medical Decision Making MDM Narrative Medical decision making narrative: Patient with URI symptoms and chest wall pain. Upper respiratory viral panel is positive for RSV, negative for COVID. Patient was seen about 7 days ago and prescribed Zithromax and cough medicine. Patient was wondering if he needed additional antibiotics, but explained that he had no evidence of any bacterial infection and that the Zithromax course lasted more than the 4 days he actually took it. Chest x-ray today shows no evidence of pneumonia. CBC and chemistry unremarkable Lab Data Lab results reviewed: Yes I reviewed the patient's lab results. Result diagrams: 05/22/21 15:53 05/22/21 15:53 Labs: Lab Results 05/22/21 05/22/21 05/22/21 Range/Units 15:53 15:53 15:53 WBC 10.6 (4.8-10.8) X10*3/uL RBC 4.66 (4.60-5.80) X10*6/uL Hgb 13.8 L (14.0-18.0) g/dl Hct 42.2 (42-52) % MCV 90.6 (80-98) fL MCH 29.6 (27.0-33.0) pg MCHC 32.7 (31.0-36.0) g/dl RDW 12.8 (11.0-16.0) % Plt Count 272 (160-400) X10*3/uL MPV 9.9 (9.4-12.4) fL Immature Gran % (Auto) 1.6 H (0.0-0.4) % Neut % (Auto) 61.5 (45-73) % Lymph % (Auto) 28.6 (20-40) % [place] % (Auto) 6.0 (2-11) % Eos % (Auto) 2.0 (0-4) % Baso % (Auto) 0.3 (0-2) % Lymph # (Auto) 3.0 (1.2-4.9) X10*3/uL [place] # (Auto) 0.6 (0.1-1.2) X10*3/uL Eos # (Auto) 0.2 (0.0-0.4) X10*3/uL Baso # (Auto) 0.0 (0.0-0.2) X10*3/uL Abs Immat Gran (auto) 0.17 H (0.00-0.03) X10*3/uL Absolute Neuts (auto) 6.6 (2.0-8.3) X10*3/uL Absolute Nucleated RBC 0.000 (0.0-0.012) X10*3/uL Nucleated RBC % (auto) 0.0 (0.0-0.2) /100WBC Sodium 141 (135-145) mmol/L Potassium 4.4 (3.3-5.1) mmol/L Chloride 105 (96-108) mmol/L Carbon Dioxide 30 H (22-29) mmol/L Anion Gap 10 L (12-20) BUN 7 L (9-16) mg/dL Creatinine 0.93 (0.5-1.4) mg/dL Estim Creat Clear Calc 122.0 Estimated GFR > 60 Random Glucose 95 D (60-115) mg/dL Calcium 9.4 (8.4-10.2) mg/dL Total Bilirubin 0.3 (0.0-1.0) mg/dL AST 14 (5-37) U/L ALT 17 (0-40) U/L Alkaline Phosphatase 47 (39-117) U/L Total Protein 6.6 (6.5-8.0) g/dL Albumin 4.0 (3.5-5.0) g/dL Coronavirus (PCR) NEGATIVE (Negative) Influenza Type A (PCR) NEGATIVE (Negative) Influenza Type B (PCR) NEGATIVE (Negative) RSV RNA Qual (PCR) POSITIVE A (Negative) Imaging Data Chest x-ray: Radiologist's impression: No acute pathology Discharge Plan Discharge Clinical Impression: URI (upper respiratory infection), Bronchitis Patient Disposition: Home, Self-Care Instructions: Upper Respiratory Infection (ED), Viral Syndrome (ED) Additional Instructions: Drink plenty of fluids. Use the cough medicine as prescribed. Follow-up with your primary care physician. Prescriptions: New gpuklwvwytwikiv-mcpvcfsdx-XG [Bromfed DM] 2-30-10 mg/5 mL syrup 7.5 ml PO Q4-6H PRN (Reason: cold symptoms) Qty: 473 RF: 0 benzonatate [Tessalon Perles] 100 mg capsule 200 mg PO TID PRN (Reason: cough) Qty: 30 RF: 0 No Action allopurinol 100 mg tablet 100 mg PO DAILY Qty: 30 RF: 2 lisinopril 5 mg tablet 5 mg PO DAILY Qty: 90 RF: 1 fenofibrate 160 mg tablet 160 mg PO DAILY 90 Days Qty: 90 RF: 1 umeclidinium-vilanterol [Anoro Ellipta] 62.5-25 mcg/actuation blister with device 1 ea PO DAILY Qty: 60 RF: 8 folic acid 1 mg tablet 1 mg PO DAILY Qty: 30 RF: 11 albuterol sulfate 2.5 mg /3 mL (0.083 %) solution for nebulization 2.5 mg inhalation TID Qty: 225 RF: 3 pantoprazole 40 mg tablet,delayed release (DR/EC) 40 mg PO DAILY 90 Days Qty: 90 RF: 3 carisoprodol 350 mg tablet 350 mg PO TID PRN (Reason: Muscle Pain) 30 Days Qty: 90 RF: 0 oxcarbazepine 300 mg tablet 1 tab PO BID RF: 0 buspirone 10 mg tablet 1 tab PO DAILY RF: 0 clonazepam 2 mg tablet 1 tab PO BID RF: 0 zolpidem 10 mg tablet 1 tab PO BEDTIME PRN (Reason: Insomnia) RF: 0 prazosin 2 mg capsule 1 cap PO BID RF: 0 hydroxyzine pamoate 25 mg capsule 1 cap PO BID PRN (Reason: Anxiety) RF: 0 aripiprazole 10 mg tablet 1 tab PO QAM RF: 0 prednisone 20 mg tablet 40 mg PO DAILY Qty: 10 RF: 0 azithromycin [Zithromax Z-Ge] 250 mg tablet See Rx Instructions .ROUTE .COMPLEX Qty: 6 RF: 0 albuterol sulfate [ProAir HFA] 90 mcg/actuation HFA aerosol inhaler 1 inh inhalation QID PRN (Reason: shortness of breath or wheezing) Qty: 6.7 RF: 0 benzonatate [Tessalon Perles] 100 mg capsule 100 mg PO TID PRN (Reason: cough) Qty: 30 RF: 0 (DME) blood pressure monitor Kit See Rx Instructions .ROUTE .MEDSUPPLY Qty: 1 RF: 0 cyanocobalamin (vitamin B-12) 1,000 mcg tablet extended release 1,000 mcg PO DAILY RF: 0 oxcarbazepine 600 mg tablet 600 mg PO BID RF: 0 Interventions: ED Discharge Assessment Last Done: 05/22/21 17:49 Discharge Date/Time: 05/22/21 17:50
== END 2021-05-22 17:50 | disposition home or self-care (01) ==
PROVIDERS: Emergency Provider Emergency Medicine; PCP Internal Medicine
DX: J06.9 Acute upper respiratory infection, unspecified (principal); J40 Bronchitis, not specified as acute or chronic; I10 Essential (primary) hypertension; Z20.822 Contact with and (suspected) exposure to COVID-19
CPT/HCPCS: 0241U; 36415; 71046; 80053; 85025; 99283

== ENCOUNTER → 2021-06-03 10:57 | Outpatient (BNVA) | payer OTHER, SELFPAY | PROVIDERS: PCP Internal Medicine; Visit Provider Internal Medicine Gastroenterology ==

== ENCOUNTER 2021-06-28 11:34 | Emergency (ER) | payer OTHER, SELFPAY ==
--- NOTE | ~2021-06-28 | XR_ITS ---
EXAMINATION: XR CHEST CLINICAL INFORMATION: Shortness of breath COMPARISON: Chest x-ray 05/22/2021 TECHNIQUE: 2 views of the chest were obtained. FINDINGS: Cardiac silhouette is normal in size. The lungs are well aerated. There is mild asymmetric elevation right hemidiaphragm again noted. No lobar consolidation. No pleural effusion or pneumothorax. Mild degenerative changes of the spine. XR/XR chest 2V IMPRESSION: Stable examination demonstrating no acute pulmonary pathology.
[2021-06-28 11:52] VITALS: BP 175/104; PULSE 79; RESP 18; TEMP 37.1; O2SAT 96; BMI 35.9
[2021-06-28 12:53] LABS: COVID-19 Test Invalid (Negative); IDNOW Serial# 08D9AD1C
--- NOTE | 2021-06-28 13:16 | ED.URI ---
HPI - URI/Sore Throat General Chief Complaint: Fever Stated Complaint: SOB/cough Time Seen by Provider: 06/28/21 13:05 Source: patient Mode of arrival: ambulatory Limitations: no limitations History of Present Illness HPI Narrative: 51-year-old male with a past medical history of COPD, pneumonia, gout, chronic back pain, hyperlipidemia, hypertension, anemia here with complaints of cough with wheezing with some chest discomfort with coughing for the last several days. Has had a low-grade fever with a max temp of 99 degrees at home. Also complaining of acute on chronic low back pain with no new injury or trauma. No radiation of pain. No numbness or tingling. No incontinence of bowel or bladder. Here with his partner who has a headache and is seeking COVID testing due to exposure. Related Data Home Medications Medication Instructions Recorded Confirmed aripiprazole 10 mg tablet 1 tab PO QAM 08/25/20 05/26/21 buspirone 10 mg tablet 1 tab PO DAILY 08/25/20 05/26/21 clonazepam 2 mg tablet 1 tab PO BID 08/25/20 05/26/21 hydroxyzine pamoate 25 mg capsule 1 cap PO BID PRN 08/25/20 05/26/21 oxcarbazepine 300 mg tablet 1 tab PO BID 08/25/20 05/26/21 prazosin 2 mg capsule 1 cap PO BID 08/25/20 05/26/21 zolpidem 10 mg tablet 1 tab PO BEDTIME PRN 08/25/20 05/26/21 oxcarbazepine 600 mg tablet 600 mg PO BID 09/10/20 05/26/21 melatonin 5 mg capsule mg PO BEDTIME PRN 06/03/21 quetiapine 25 mg tablet 0 mg PO 06/03/21 Previous Rx's Medication Instructions Recorded blood pressure monitor #1 ea 08/20/20 allopurinol 100 mg tablet 100 mg PO DAILY #30 tab 11/03/20 fenofibrate 160 mg tablet 160 mg PO DAILY 90 Days #90 tab 02/18/21 lisinopril 5 mg tablet 5 mg PO DAILY #90 tab 02/18/21 umeclidinium 62.5 mcg-vilanterol 1 ea PO DAILY #60 cap 02/20/21 25 mcg/actuation powdr for inhalation (Anoro Ellipta) folic acid 1 mg tablet 1 mg PO DAILY #30 tab 02/26/21 albuterol sulfate 2.5 mg (3 mL) INHALATION TID #225 05/12/21 ml albuterol sulfate 90 mcg/actuation 1 inh INHALATION QID PRN #6.7 g 05/15/21 aerosol inhaler (ProAir HFA) thivwdctkhgsccq-[id number]-TI 7.5 ml PO Q4-6H PRN #473 ml 05/22/21 2 mg-30 mg-10 mg/5 mL oral syrup (Bromfed DM) azithromycin 250 mg tablet 250 mg PO DIRECTED 5 Days #6 tab 05/26/21 cholecalciferol (vitamin D3) 25 25 mcg PO DAILY 90 Days #90 cap 05/26/21 mcg (1,000 unit) capsule cyanocobalamin (vitamin B-12) 1,000 mcg PO DAILY 90 Days #90 tab 05/26/21 1,000 mcg tablet,extended release pantoprazole 40 mg tablet,delayed 40 mg PO BID 90 Days #180 tab 06/03/21 release carisoprodol 350 mg tablet 350 mg PO TID PRN 30 Days #90 tab 06/16/21 ibuprofen 800 mg tablet 800 mg PO Q8H PRN #20 tab 06/28/21 prednisone 20 mg tablet 40 mg PO DAILY #10 tab 06/28/21 Allergies Allergy/AdvReac Type Severity Reaction Status Date / Time bee stings Allergy Severe Anaphylaxis Verified 06/28/21 11:57 hydromorphone [From DILAUDID] AdvReac Severe VIOLENTLY Verified 06/28/21 11:57 ILL NEEDS TO EAT FIRST Review of Systems Review of Systems: Yes all other systems are reviewed and are negative Constitutional: Constitutional: Reports no additional constitutional complaints, Denies body ache(s), Denies chills, Denies fever(s), Denies headache(s) and Denies weakness Eyes: Eyes: Reports no additional eye complaints and Denies change in vision ENT: Reports system reviewed and no additional complaints, except as documented, Denies dizziness, Denies headache(s), Denies nasal congestion, Denies nasal discharge and Denies neck pain Cardiovascular: Cardiovascular: Reports no additional cardiovascular complaints, Reports chest pain, Denies leg edema and Denies dyspnea Respiratory: Respiratory: Reports no additional respiratory complaints, Reports cough, Denies dyspnea and Reports wheezing Gastrointestinal: Gastrointestinal: Reports no additional gastrointestinal complaints, Denies abdominal pain, Denies diarrhea, Denies nausea and Denies vomiting Genitourinary: Genitourinary: Denies urinary incontinence Musculoskeletal: Musculoskeletal: Reports no additional musculoskeletal complaints, Reports back pain, Denies arthralgias, Denies joint swelling, Denies neck pain, Denies numbness and Denies tingling Integumentary/Breasts: Skin/Breast: Reports system reviewed and no additional complaints, except as docu and Denies rash Neurologic: Denies Abnormal speech present, Denies dizziness, Denies headache(s), Denies numbness, Denies tingling and Denies weakness Allergic/Immunologic: Allergic/Immunologic: Reports wheezing PMFSH Past Medical History Attestation statement: The following information was validated with the patient. Source: old records reviewed and nursing notes reviewed Medical History COPD (chronic obstructive pulmonary disease) Essential hypertension GERD (gastroesophageal reflux disease) Gout History of pneumonia Lumbar degenerative disc disease Lymphopenia Mixed hyperlipidemia Pernicious anemia Positive colorectal cancer screening using Cologuard test Surgical History History of arthroscopy of left knee History of esophagogastroduodenoscopy (EGD) History of shoulder surgery History of surgery History of total left knee replacement Hx of colonoscopy Status post surgical removal of malignant neoplasm of skin Family History Family History Father Lung cancer Mother Chronic mental illness Alzheimer disease Maternal Grandmother Bone cancer Hypertension Paternal Grandmother Brain cancer Maternal Uncle Cancer Family/Other Chronic mental illness Substance use disorder Social History Social History Household Members: None and Other Household Members Other:: 2 room mates Housing: House Do you presently have visiting nurse or other home services: No Alcohol intake: former Patient Tobacco Use Status: Former Tobacco user Tobacco use type: Cigarette Cigarette Packs Per Day: 1 e-Cigarette/Vaping Use: Never Used Second Hand Smoke Exposure: No Advance Directives: No Advance Directives Information Provided: Yes service: No Current occupational status: unemployed and disabled Physical Exam Vital Signs: Vital Signs: Last Vital Signs Temp 98.7 F 06/28/21 11:52 Pulse 79 06/28/21 11:52 Resp 18 06/28/21 11:52 BP 175/104 H 06/28/21 11:52 Pulse Ox 96 06/28/21 11:52 Body Mass Index 35.9 Const: General: cooperative, healthy appearing, comfortable and no acute distress Orientation/consciousness: patient oriented x3 Limitations: no limitations HENMT: Head: Yes normal to inspection Ears: hearing grossly normal bilaterally General nose exam: Normal external nose present Face and sinus: Yes normal facial exam Mouth: Normal oral and palatal mucosa present Throat: Yes posterior oropharynx normal Eyes: General: appearance normal, both eyes and all related structures Pupils: Equal, round and reactive pupils present Neck: Neck: Yes normal visual inspection Chest: Chest palpation & inspection: normal inspection of the chest Resp: Other: Mild expiratory wheezing with prolonged expiration Effort & Inspection: normal respiratory effort Cardio: Rate: regular rate Rhythm: regular rhythm Peripheral pulses: Peripheral pulses 2+ throughout GI: Inspection: Yes normal to inspection Palpation (GI): Soft to palpation and nontender Auscultation: normal bowel sounds Back/Spine/Pelvis: Other: Midline lumbar tenderness with no step-offs or deformities Pain worsened with bilateral straight leg raise Thoracic/Lumbar Spine: thoracic and lumbar spine normal to inspection Skin: General skin exam: no rashes or lesions noted Neuro: General: patient oriented x3, no focal motor deficits and normal sensation to monofilament Cranial nerves: Yes Equal, round and reactive pupils present, Yes Normal facial strength present and Yes Midline tongue present Cognition (Neuro): normal cognition Speech: No Abnormal speech present Gait exam (Neuro): Normal gait present Motor exam (neuro): 5/5 motor strength present throughout Sensory Exam: Normal double simultaneous stimulation for sensation Deep tendon reflexes (DTR's): Right patellar reflex intensity grade: 2+ and Left patellar reflex intensity grade: 2+ Extrem: General: Yes normal to inspection, Yes no pedal edema and Yes no calf tenderness Course Course Course Narrative: 51-year-old male here with complaints of some cough and wheezing with some mild chest discomfort for last 2 days with a low-grade temperature at home. May have had COVID exposure. Also acute on chronic low back pain with no neurological deficits or red flag symptoms. Will check chest x-ray, COVID screen. 1400-chest x-ray negative. COVID screen negative. Patient tells me he he feels like he is having asthma exacerbation and is questioning a course of steroids. Will send a brief course of prednisone to his pharmacy. Also requesting ibuprofen 800 mg for his back pain which I will sent to his pharmacy. Reviewed worrisome signs and symptoms when to return to the emergency department. Comfortable discharge home. MDM - URI/Sore Throat Medical Records Attestation: I reviewed the patient's medical records. Lab Data Attestation: I reviewed the patient's lab results. Labs: Lab Results 06/28/21 06/28/21 Range/Units 12:16 13:06 COVID-19 ([facility]) Invalid Negative (Negative) COVID-19 Clin Com See Note See Note Imaging Data Chest x-ray: Attestation: I personally reviewed and interpreted this imaging study as follows: Radiologist's impression: EXAMINATION: XR CHEST CLINICAL INFORMATION: Shortness of breath COMPARISON: Chest x-ray 05/22/2021 TECHNIQUE: 2 views of the chest were obtained. FINDINGS: Cardiac silhouette is normal in size. The lungs are well aerated. There is mild asymmetric elevation right hemidiaphragm again noted. No lobar consolidation. No pleural effusion or pneumothorax. Mild degenerative changes of the spine. XR/XR chest 2V IMPRESSION: Stable examination demonstrating no acute pulmonary pathology. Discharge Plan Discharge Clinical Impression: Asthma exacerbation, Lumbar strain Patient Disposition: Home, Self-Care Instructions: Asthma (ED), Acute Low Back Pain (ED) Additional Instructions: Continue your home medication Heat or ice Gentle stretching Prescriptions: New ibuprofen 800 mg tablet 800 mg PO Q8H PRN (Reason: pain) Qty: 20 RF: 0 prednisone 20 mg tablet 40 mg PO DAILY Qty: 10 RF: 0 No Action allopurinol 100 mg tablet 100 mg PO DAILY Qty: 30 RF: 2 lisinopril 5 mg tablet 5 mg PO DAILY Qty: 90 RF: 1 fenofibrate 160 mg tablet 160 mg PO DAILY 90 Days Qty: 90 RF: 1 umeclidinium-vilanterol [Anoro Ellipta] 62.5-25 mcg/actuation blister with device 1 ea PO DAILY Qty: 60 RF: 8 folic acid 1 mg tablet 1 mg PO DAILY Qty: 30 RF: 11 albuterol sulfate 2.5 mg /3 mL (0.083 %) solution for nebulization 2.5 mg inhalation TID Qty: 225 RF: 3 carisoprodol 350 mg tablet 350 mg PO TID PRN (Reason: Muscle Pain) 30 Days Qty: 90 RF: 0 oxcarbazepine 300 mg tablet 1 tab PO BID RF: 0 buspirone 10 mg tablet 1 tab PO DAILY RF: 0 clonazepam 2 mg tablet 1 tab PO BID RF: 0 zolpidem 10 mg tablet 1 tab PO BEDTIME PRN (Reason: Insomnia) RF: 0 prazosin 2 mg capsule 1 cap PO BID RF: 0 hydroxyzine pamoate 25 mg capsule 1 cap PO BID PRN (Reason: Anxiety) RF: 0 aripiprazole 10 mg tablet 1 tab PO QAM RF: 0 albuterol sulfate [ProAir HFA] 90 mcg/actuation HFA aerosol inhaler 1 inh inhalation QID PRN (Reason: shortness of breath or wheezing) Qty: 6.7 RF: 0 wytnqvdpdmqjzva-hmfqottjo-SS [Bromfed DM] 2-30-10 mg/5 mL syrup 7.5 ml PO Q4-6H PRN (Reason: cold symptoms) Qty: 473 RF: 0 azithromycin 250 mg tablet 250 mg PO DIRECTED 5 Days Qty: 6 RF: 0 cyanocobalamin (vitamin B-12) 1,000 mcg tablet extended release 1,000 mcg PO DAILY 90 Days Qty: 90 RF: 3 cholecalciferol (vitamin D3) 25 mcg (1,000 unit) capsule 25 mcg PO DAILY 90 Days Qty: 90 RF: 1 (DME) blood pressure monitor Kit See Rx Instructions .ROUTE .MEDSUPPLY Qty: 1 RF: 0 oxcarbazepine 600 mg tablet 600 mg PO BID RF: 0 quetiapine 25 mg tablet 0 mg PO RF: 0 melatonin 5 mg capsule PO BEDTIME PRNRF: 0 pantoprazole 40 mg tablet,delayed release (DR/EC) 40 mg PO BID 90 Days Qty: 180 RF: 3 Referrals: Yulissa Dempsey MD [Primary Care Provider] - 2 days
[2021-06-28 13:51] LABS: COVID-19 Test Negative (Negative); IDNOW Serial# 9DD0AD1C
== END 2021-06-28 14:09 | disposition home or self-care (01) ==
PROVIDERS: Emergency Provider Emergency Medicine Emergency Medical Services; PCP Internal Medicine
DX: J45.901 Unspecified asthma with (acute) exacerbation (principal); R50.9 Fever, unspecified; R05.9 Cough, unspecified; M54.50 Low back pain, unspecified; Z79.899 Other long term (current) drug therapy; Z20.822 Contact with and (suspected) exposure to COVID-19; Z87.891 Personal history of nicotine dependence
CPT/HCPCS: 36415; 71046; 87635; 99283

== ENCOUNTER 2021-08-20 10:07 | Emergency (ER) | payer OTHER, SELFPAY ==
--- NOTE | ~2021-08-20 | CT_ITS ---
EXAMINATION: CT BRAIN AND CT CERVICAL SPINE WITHOUT CONTRAST. CLINICAL INFORMATION: Trauma. COMPARISON: None TECHNIQUE: 5 mm thin axial and 2 mm sagittal and coronal images of brain were obtained. Axial 3 mm thin and reformatted 2 mm thin sagittal coronal images of cervical spine were obtained. DLP 1612. FINDINGS: Brain: There is no acute intra-axial, extra-axial bleed, masses, collection or midline shift. The lateral ventricles are symmetrical in size and configuration without enlargement. The ba to white matter differentiation is maintained normal. Bone windows reveal no calvarial abnormality. There is no scalp soft tissue abnormality. Bilateral paranasal sinuses and mastoid air cells are well-aerated. Cervical spine: There is mild straightening of cervical lordosis. The vertebral heights, and alignment is normal. There is mild loss of C3-C4 and C5-C6 disc heights. There is mild ventral spondylosis C5-C6 disc level. Rest of the disc heights are normal. The craniovertebral junction and the C1-C2 alignment is normal. No visible acute fracture, dislocation or subluxation seen. The prevertebral and paravertebral soft tissues are normal. The thyroid lobes and the submandibular glands are normal. There is shotty bilateral neck lymphadenopathy with the largest level 2 lymph node measuring 1 cm and left submandibular space lymph node measuring 1.5 cm on axial image 31/7.. CT/CT cervical spine wo con IMPRESSION: No acute intracranial process seen. Mild reversal of cervical lordosis without acute fracture or dislocation. Mild degenerative disc changes C3-C4 and C5-C6 disc levels.
--- NOTE | ~2021-08-20 | XR_ITS ---
EXAMINATION: XR CHEST CLINICAL INFORMATION: Chest pain COMPARISON: June 28, 2021 TECHNIQUE: 2 views of the chest were obtained. FINDINGS: No significant abnormality is noted involving the heart, lungs, mediastinum, bony thorax or soft tissues. XR/XR chest 2V IMPRESSION: No acute disease.
--- NOTE | ~2021-08-20 | CT_ITS ---
EXAMINATION: CT BRAIN AND CT CERVICAL SPINE WITHOUT CONTRAST. CLINICAL INFORMATION: Trauma. COMPARISON: None TECHNIQUE: 5 mm thin axial and 2 mm sagittal and coronal images of brain were obtained. Axial 3 mm thin and reformatted 2 mm thin sagittal coronal images of cervical spine were obtained. DLP 1612. FINDINGS: Brain: There is no acute intra-axial, extra-axial bleed, masses, collection or midline shift. The lateral ventricles are symmetrical in size and configuration without enlargement. The ba to white matter differentiation is maintained normal. Bone windows reveal no calvarial abnormality. There is no scalp soft tissue abnormality. Bilateral paranasal sinuses and mastoid air cells are well-aerated. Cervical spine: There is mild straightening of cervical lordosis. The vertebral heights, and alignment is normal. There is mild loss of C3-C4 and C5-C6 disc heights. There is mild ventral spondylosis C5-C6 disc level. Rest of the disc heights are normal. The craniovertebral junction and the C1-C2 alignment is normal. No visible acute fracture, dislocation or subluxation seen. The prevertebral and paravertebral soft tissues are normal. The thyroid lobes and the submandibular glands are normal. There is shotty bilateral neck lymphadenopathy with the largest level 2 lymph node measuring 1 cm and left submandibular space lymph node measuring 1.5 cm on axial image 31/7.. CT/CT head/brain wo con IMPRESSION: No acute intracranial process seen. Mild reversal of cervical lordosis without acute fracture or dislocation. Mild degenerative disc changes C3-C4 and C5-C6 disc levels.
--- NOTE | 2021-08-20 10:09 | ECG_ITS ---
Test Reason : cp Blood Pressure : / mmHG Vent. Rate : 093 BPM Atrial Rate : 093 BPM P-R Int : 128 ms QRS Dur : 086 ms QT Int : 348 ms P-R-T Axes : 041 012 041 degrees QTc Int : 432 ms Normal sinus rhythm Normal ECG When compared with ECG of 06-JAN-2021 20:55, No significant change was found Referred By: Generic ED Physician Electronically Signed By:BETY RAMOS MD
[2021-08-20 10:33] LABS: MANUAL DIFF FLAG NO
[2021-08-20 10:35] LABS: Basophils Percent Auto 0.4 % (0-2); Eosinophils Absolute Auto 0.1 X10*3/uL (0.0-0.4); Eosinophils Percent Auto 1.6 % (0-4); Hematocrit 45.2 % (42.0-52.0); Hemoglobin 14.9 g/dl (14.0-18.0); Imm Gran Abs Auto 0.04 X10*3/uL (0.00-0.03); Imm Gran Pct Auto 0.6 % (0.0-0.4); Mean Corpuscular Hemoglobin 29.7 pg (27.0-33.0); Mean Platelet Volume 9.9 fL (9.4-12.4); Monocytes Absolute Auto 0.6 X10*3/uL (0.1-1.2); Monocytes Percent Auto 9.2 % (2-11); Neutrophils Absolute Auto 3.9 x10*3/uL (2.0-8.3); Neutrophils Percent Auto 58.2 % (45-73); Platelet Count 241 X10*3/uL (160-400); Red Blood Count 5.02 X10*6/uL (4.60-5.80); Red Cell Distribution Width 12.7 % (11.0-16.0); White Blood Count 6.8 X10*3/uL (4.8-10.8)
[2021-08-20 10:42] LABS: COVID-19 Test Positive (Negative)
[2021-08-20 10:48] VITALS: BP 127/84; PULSE 91; RESP 22; O2SAT 96; BMI 34.7
[2021-08-20 10:52] LABS: Alanine Aminotransferase 26 U/L (0-40); Albumin Level 4.2 g/dL (3.5-5.0); Alkaline Phosphatase 46 U/L (39-117); Anion Gap 14 (12-20); Aspartate Amino Transferase 14 U/L (5-37); Bilirubin Total 0.3 mg/dL (0.0-1.0); Blood Urea Nitrogen 17 mg/dL (9-16); Calcium 9.1 mg/dL (8.4-10.2); Carbon Dioxide 21 mmol/L (22-29); Chloride 107 mmol/L (96-108); Creatinine Clr Calc Pharmacy 108.2; Estimated Glomerular Filt Rate > 60; Glucose Random 165 mg/dL (60-115); Potassium 4.4 mmol/L (3.3-5.1); Sodium 138 mmol/L (135-145); Total Protein 7.1 g/dL (6.5-8.0)
[2021-08-20 10:56] LABS: Troponin-I High Sensitivity < 3.5 ng/L (<3.5-35.0)
--- NOTE | 2021-08-20 11:34 | ED_ITS ---
HPI - Chest Pain General Chief Complaint: Chest Pain Stated Complaint: chest pain / fall Time Seen by Provider: 08/20/21 11:23 Source: patient Mode of arrival: ambulatory Limitations: no limitations History of Present Illness HPI narrative: This is a 51 years old the patient presented to the emergency department with to complain 1 is a fall , he fell in the ice he is complaining of neck pain and headache is was also is complaining of chest pain for about 2 days MD complaint: chest pain Onset (ago): day(s) (2) Timing of current episode: constant Prior episodes: No Onset: during rest Pain location: substernal Pain radiation: none Quality: aching Exacerbating factors: other (none) Risk Factors Coronary artery disease risk factors: none Related Data Home Medications Medication Instructions Recorded Confirmed aripiprazole 10 mg tablet 1 tab PO QAM 08/25/20 06/30/21 buspirone 10 mg tablet 1 tab PO DAILY 08/25/20 06/30/21 clonazepam 2 mg tablet 1 tab PO BID 08/25/20 06/30/21 hydroxyzine pamoate 25 mg capsule 1 cap PO BID PRN 08/25/20 06/30/21 oxcarbazepine 300 mg tablet 1 tab PO BID 08/25/20 06/30/21 prazosin 2 mg capsule 1 cap PO BID 08/25/20 06/30/21 zolpidem 10 mg tablet 1 tab PO BEDTIME PRN 08/25/20 06/30/21 oxcarbazepine 600 mg tablet 600 mg PO BID 09/10/20 06/30/21 melatonin 5 mg capsule mg PO BEDTIME PRN 06/03/21 06/30/21 quetiapine 25 mg tablet 0 mg PO 06/03/21 06/30/21 Previous Rx's Medication Instructions Recorded blood pressure monitor #1 ea 08/20/20 allopurinol 100 mg tablet 100 mg PO DAILY #30 tab 11/03/20 fenofibrate 160 mg tablet 160 mg PO DAILY 90 Days #90 tab 02/18/21 umeclidinium 62.5 mcg-vilanterol 1 ea PO DAILY #60 cap 02/20/21 25 mcg/actuation powdr for inhalation (Anoro Ellipta) folic acid 1 mg tablet 1 mg PO DAILY #30 tab 02/26/21 albuterol sulfate 2.5 mg (3 mL) INHALATION TID #225 09/27/21 ml albuterol sulfate 90 mcg/actuation 1 inh INHALATION QID PRN #6.7 g 05/15/21 aerosol inhaler (ProAir HFA) bvkdjsvovzgywsn-fxpcmuaikhumpao-BS 7.5 ml PO Q4-6H PRN #473 ml 05/22/21 2 mg-30 mg-10 mg/5 mL oral syrup (Bromfed DM) azithromycin 250 mg tablet 250 mg PO DIRECTED 5 Days #6 tab 05/26/21 cholecalciferol (vitamin D3) 25 25 mcg PO DAILY 90 Days #90 cap 05/26/21 mcg (1,000 unit) capsule cyanocobalamin (vitamin B-12) 1,000 mcg PO DAILY 90 Days #90 tab 05/26/21 1,000 mcg tablet,extended release pantoprazole 40 mg tablet,delayed 40 mg PO BID 90 Days #180 tab 06/03/21 release prednisone 20 mg tablet 40 mg PO DAILY #10 tab 06/28/21 ibuprofen 800 mg tablet 800 mg PO Q8H 30 Days #90 tab 06/30/21 lisinopril 5 mg tablet 5 mg PO DAILY #90 tab 07/15/21 carisoprodol 350 mg tablet 350 mg PO TID PRN 30 Days #90 tab 08/13/21 Allergies Allergy/AdvReac Type Severity Reaction Status Date / Time bee stings Allergy Severe Anaphylaxis Verified 08/20/21 10:47 hydromorphone [From DILAUDID] AdvReac Severe VIOLENTLY Verified 08/20/21 10:47 ILL NEEDS TO EAT FIRST Review of Systems Constitutional: Constitutional: Reports no additional constitutional complaints Cardiovascular: Cardiovascular: Reports no additional cardiovascular complaints Gastrointestinal: Gastrointestinal: Reports no additional gastrointestinal complaints Musculoskeletal: Musculoskeletal: Reports no additional musculoskeletal complaints [facility] Past Medical History Medical History COPD (chronic obstructive pulmonary disease) Essential hypertension GERD (gastroesophageal reflux disease) Gout History of pneumonia Lumbar degenerative disc disease Lymphopenia Mixed hyperlipidemia Pernicious anemia Positive colorectal cancer screening using Cologuard test Surgical History History of arthroscopy of left knee History of esophagogastroduodenoscopy (EGD) History of shoulder surgery History of surgery History of total left knee replacement Hx of colonoscopy Status post surgical removal of malignant neoplasm of skin Family History Family History Father Lung cancer Mother Chronic mental illness Alzheimer disease Maternal Grandmother Bone cancer Hypertension Paternal Grandmother Brain cancer Maternal Uncle Cancer Family/Other Chronic mental illness Substance use disorder Social History Social History Household Members: None and Other Household Members Other:: 2 room mates Housing: House Do you presently have visiting nurse or other home services: No Alcohol intake: former Patient Tobacco Use Status: Former Tobacco user Tobacco use type: Cigarette Cigarette Packs Per Day: 1 e-Cigarette/Vaping Use: Never Used Second Hand Smoke Exposure: No Advance Directives: No service: No Current occupational status: unemployed and disabled Physical Exam Vital Signs: Vital Signs: Last Vital Signs Pulse 91 08/20/21 10:48 Resp 22 H 08/20/21 10:48 BP 127/84 08/20/21 10:48 Pulse Ox 96 08/20/21 10:48 BMI result Body Mass Index 34.7 Const: General: cooperative Nutritional Appearance: well nourished Orientation/consciousness: patient oriented x3 HENMT: Head: Yes normal to inspection and Yes No palpable skull fracture present General nose exam: Normal external nose present Mouth: Normal oral and palatal mucosa present Neck: Neck: Yes normal visual inspection and Yes other (tenderness post spine) Chest: Chest palpation & inspection: normal inspection of the chest Resp: Effort & Inspection: normal respiratory effort Auscultation: clear to auscultation bilaterally Percussion: percussion normal Cardio: Rate: regular rate Rhythm: regular rhythm GI: Inspection: Yes normal to inspection Palpation (GI): Soft to palpation, not firm, nontender and no guarding Skin: General skin exam: no rashes or lesions noted and elasticity normal Rashes: no rashes Neuro: General: patient oriented x3 Course Reevaluation(s) Reevaluation #1: We are waiting for imaging results at this point, his troponin high sensitivity is negative after more than 24 hour chest pain. Also D-dimer is negative. The pt is Covid Positive Reevaluation #2: Chest x-ray is normal, CT scan of the head the C-spine are negative no fracture. Again the patient is COVID positive but he is oxygenating well, his D-dimer is negative his chest x-ray is normal I think he can be discharged home . I gave her referral for the [facility] monoclonal antibody because he has COPD MDM - Chest Pain Lab Data Result diagrams: 08/20/21 10:30 08/20/21 10:30 Labs: Lab Results 08/20/21 08/20/21 08/20/21 Range/Units 10:30 10:30 10:30 WBC 6.8 (4.8-10.8) X10*3/uL RBC 5.02 (4.60-5.80) X10*6/uL Hgb 14.9 (14.0-18.0) g/dl Hct 45.2 (42.0-52.0) % MCV 90.0 (80.0-98.0) fL MCH 29.7 (27.0-33.0) pg MCHC 33.0 (31.0-36.0) g/dl RDW 12.7 (11.0-16.0) % Plt Count 241 (160-400) X10*3/uL MPV 9.9 (9.4-12.4) fL Immature Gran % (Auto) 0.6 H (0.0-0.4) % Neut % (Auto) 58.2 (45-73) % Lymph % (Auto) 30.0 (20-40) % Norton % (Auto) 9.2 (2-11) % Eos % (Auto) 1.6 (0-4) % Baso % (Auto) 0.4 (0-2) % Lymph # (Auto) 2.0 (1.2-4.9) X10*3/uL Norton # (Auto) 0.6 (0.1-1.2) X10*3/uL Eos # (Auto) 0.1 (0.0-0.4) X10*3/uL Baso # (Auto) 0.0 (0.0-0.2) X10*3/uL Abs Immat Gran (auto) 0.04 H (0.00-0.03) X10*3/uL Absolute Neuts (auto) 3.9 (2.0-8.3) x10*3/uL Absolute Nucleated RBC 0.000 (0.0-0.012) X10*3/uL Nucleated RBC % (auto) 0.0 (0.0-0.2) /100WBC D-Dimer High Sensitivty NG/ML Sodium 138 (135-145) mmol/L Potassium 4.4 (3.3-5.1) mmol/L Chloride 107 (96-108) mmol/L Carbon Dioxide 21 L (22-29) mmol/L Anion Gap 14 (12-20) BUN 17 H (9-16) mg/dL Creatinine 1.11 (0.5-1.4) mg/dL Estim Creat Clear Calc 108.2 Estimated GFR > 60 Random Glucose 165 H D (60-115) mg/dL Calcium 9.1 (8.4-10.2) mg/dL Total Bilirubin 0.3 (0.0-1.0) mg/dL AST 14 (5-37) U/L ALT 26 (0-40) U/L Alkaline Phosphatase 46 (39-117) U/L Troponin I High Sens < 3.5 (<3.5-35.0) ng/L Total Protein 7.1 (6.5-8.0) g/dL Albumin 4.2 (3.5-5.0) g/dL COVID-19 ([facility]) (Negative) COVID-19 Clin Com 08/20/21 08/20/21 Range/Units 10:30 12:01 WBC (4.8-10.8) X10*3/uL RBC (4.60-5.80) X10*6/uL Hgb (14.0-18.0) g/dl Hct (42.0-52.0) % MCV (80.0-98.0) fL MCH (27.0-33.0) pg MCHC (31.0-36.0) g/dl RDW (11.0-16.0) % Plt Count (160-400) X10*3/uL MPV (9.4-12.4) fL Immature Gran % (Auto) (0.0-0.4) % Neut % (Auto) (45-73) % Lymph % (Auto) (20-40) % Norton % (Auto) (2-11) % Eos % (Auto) (0-4) % Baso % (Auto) (0-2) % Lymph # (Auto) (1.2-4.9) X10*3/uL Norton # (Auto) (0.1-1.2) X10*3/uL Eos # (Auto) (0.0-0.4) X10*3/uL Baso # (Auto) (0.0-0.2) X10*3/uL Abs Immat Gran (auto) (0.00-0.03) X10*3/uL Absolute Neuts (auto) (2.0-8.3) x10*3/uL Absolute Nucleated RBC (0.0-0.012) X10*3/uL Nucleated RBC % (auto) (0.0-0.2) /100WBC D-Dimer High Sensitivty < 150 NG/ML Sodium (135-145) mmol/L Potassium (3.3-5.1) mmol/L Chloride (96-108) mmol/L Carbon Dioxide (22-29) mmol/L Anion Gap (12-20) BUN (9-16) mg/dL Creatinine (0.5-1.4) mg/dL Estim Creat Clear Calc Estimated GFR Random Glucose (60-115) mg/dL Calcium (8.4-10.2) mg/dL Total Bilirubin (0.0-1.0) mg/dL AST (5-37) U/L ALT (0-40) U/L Alkaline Phosphatase (39-117) U/L Troponin I High Sens (<3.5-35.0) ng/L Total Protein (6.5-8.0) g/dL Albumin (3.5-5.0) g/dL COVID-19 ([facility]) Positive A (Negative) COVID-19 Clin Com See Note Imaging Data Chest x-ray: Radiologist's impression: Accession Number(s): [id number] cc: Robinson Clayotn MD~ EXAMINATION: XR CHEST CLINICAL INFORMATION: Chest pain COMPARISON: June 28, 2021 TECHNIQUE: 2 views of the chest were obtained. FINDINGS: No significant abnormality is noted involving the heart, lungs, mediastinum, bony thorax or soft tissues. XR/XR chest 2V IMPRESSION: No acute disease. Dictated By: Omero Willis MD Signed By: <Electronically signed by Omero Willis MD in OV> 08/20/21 1325 DD/ 1237 CT scan - head: Radiologist's impression: DLP [id number].? FINDINGS: Brain: There is no acute intra-axial, extra-axial bleed, masses, collection or midline shift. The lateral ventricles are symmetrical in size and configuration without enlargement. The ba to white matter differentiation is maintained normal. Bone windows reveal no calvarial abnormality. There is no scalp soft tissue abnormality. Bilateral paranasal sinuses and mastoid air cells are well-aerated. Cervical spine: There is mild straightening of cervical lordosis. The vertebral heights, and alignment is normal. There is mild loss of C3-C4 and C5-C6 disc heights. There is mild ventral spondylosis C5-C6 disc level. Rest of the disc heights are normal. The craniovertebral junction and the C1-C2 alignment is normal. No visible acute fracture, dislocation or subluxation seen. The prevertebral and paravertebral soft tissues are normal. The thyroid lobes and the submandibular glands are normal. There is shotty bilateral neck lymphadenopathy with the largest level 2 lymph node measuring 1 cm and left submandibular space lymph node measuring 1.5 cm on axial image 31/7.. CT/CT head/brain wo con IMPRESSION: No acute intracranial process seen. ? Mild reversal of cervical lordosis without acute fracture or dislocation. Mild degenerative disc changes C3-C4 and C5-C6 disc levels.? Dictated By: Phuc Elliott ECG Data ECG #1: ECG interpretation date: 08/20/21 ECG interpretation time: 11:39 Pacemaker model: NSR 93 ST-T segment isoelectric Discharge Plan Discharge Clinical Impression: Fall, Head concussion, COVID-19, Chest pain Patient Disposition: Home, Self-Care Instructions: Chest Pain (ED), Head Injury (ED), COVID-19 (Coronavirus Disease 2019) (ED) Additional Instructions: Follow-up with your primary care physician, return if you worse, we gave you the form of for infusion of monoclonal antibody [facility] Prescriptions: No Action allopurinol 100 mg tablet 100 mg PO DAILY Qty: 30 RF: 2 fenofibrate 160 mg tablet 160 mg PO DAILY 90 Days Qty: 90 RF: 1 umeclidinium-vilanterol [Anoro Ellipta] 62.5-25 mcg/actuation blister with device 1 ea PO DAILY Qty: 60 RF: 8 folic acid 1 mg tablet 1 mg PO DAILY Qty: 30 RF: 11 albuterol sulfate 2.5 mg /3 mL (0.083 %) solution for nebulization 2.5 mg inhalation TID Qty: 225 RF: 3 lisinopril 5 mg tablet 5 mg PO DAILY Qty: 90 RF: 1 carisoprodol 350 mg tablet 350 mg PO TID PRN (Reason: Muscle Pain) 30 Days Qty: 90 RF: 0 oxcarbazepine 300 mg tablet 1 tab PO BID RF: 0 buspirone 10 mg tablet 1 tab PO DAILY RF: 0 clonazepam 2 mg tablet 1 tab PO BID RF: 0 zolpidem 10 mg tablet 1 tab PO BEDTIME PRN (Reason: Insomnia) RF: 0 prazosin 2 mg capsule 1 cap PO BID RF: 0 hydroxyzine pamoate 25 mg capsule 1 cap PO BID PRN (Reason: Anxiety) RF: 0 aripiprazole 10 mg tablet 1 tab PO QAM RF: 0 albuterol sulfate [ProAir HFA] 90 mcg/actuation HFA aerosol inhaler 1 inh inhalation QID PRN (Reason: shortness of breath or wheezing) Qty: 6.7 RF: 0 prednisone 20 mg tablet 40 mg PO DAILY Qty: 10 RF: 0 lenphvlpnrjpebt-gmazodznz-LT [Bromfed DM] 2-30-10 mg/5 mL syrup 7.5 ml PO Q4-6H PRN (Reason: cold symptoms) Qty: 473 RF: 0 azithromycin 250 mg tablet 250 mg PO DIRECTED 5 Days Qty: 6 RF: 0 cyanocobalamin (vitamin B-12) 1,000 mcg tablet extended release 1,000 mcg PO DAILY 90 Days Qty: 90 RF: 3 cholecalciferol (vitamin D3) 25 mcg (1,000 unit) capsule 25 mcg PO DAILY 90 Days Qty: 90 RF: 1 (DME) blood pressure monitor Kit See Rx Instructions .ROUTE .MEDSUPPLY Qty: 1 RF: 0 ibuprofen 800 mg tablet 800 mg PO Q8H 30 Days Qty: 90 RF: 3 oxcarbazepine 600 mg tablet 600 mg PO BID RF: 0 quetiapine 25 mg tablet 0 mg PO RF: 0 melatonin 5 mg capsule PO BEDTIME PRNRF: 0 pantoprazole 40 mg tablet,delayed release (DR/EC) 40 mg PO BID 90 Days Qty: 180 RF: 3
[2021-08-20] MEDS: oxyCODONE HCl Immed Release 5 MG TABLET 10 MG PO (12:04)
[2021-08-20 12:21] LABS: D Dimer High Sensitivity < 150 NG/ML
[2021-08-20] MEDS: carisoprodoL 350 MG TABLET PO (14:20)
== END 2021-08-20 16:17 | disposition home or self-care (01) ==
PROVIDERS: Emergency Provider Emergency Medicine; PCP Internal Medicine
DX: S06.0X9A Concussion with loss of consciousness of unspecified duration, initial encounter (principal); U07.1 COVID-19; R07.9 Chest pain, unspecified; I10 Essential (primary) hypertension; J44.9 Chronic obstructive pulmonary disease, unspecified; W00.0XXA Fall on same level due to ice and snow, initial encounter; Y93.9 Activity, unspecified; Y92.9 Unspecified place or not applicable; Y99.9 Unspecified external cause status
CPT/HCPCS: 36415; 70450; 71046; 72125; 80053; 84484; 85025; 85379; 87635; 93005; 99283; 99284

== ENCOUNTER 2021-08-25 12:34 | Inpatient (IN) | payer OTHER, SELFPAY ==
[2021-08-25] VITALS (9 sets, daily range): BP systolic 132–170; BP diastolic 11–113; PULSE 72–102; RESP 9–22; TEMP 36.5; O2SAT 86–96; BMI 35.9
--- NOTE | ~2021-08-25 | XR_ITS ---
EXAMINATION: XR CHEST CLINICAL INFORMATION: SOB. COMPARISON: None TECHNIQUE: Frontal view of the chest was obtained. FINDINGS: The lungs are well-expanded and clear. There is platelike atelectasis in the lingula. Rest of the lungs are clear. The heart size and pulmonary vascularity is normal. No gross bony abnormality seen. XR/XR chest 1V IMPRESSION: Platelike atelectasis in the lingula.
--- NOTE | 2021-08-25 12:38 | ECG_ITS ---
Test Reason : unresponsive Blood Pressure : / mmHG Vent. Rate : 103 BPM Atrial Rate : 103 BPM P-R Int : 138 ms QRS Dur : 094 ms QT Int : 338 ms P-R-T Axes : 043 -29 126 degrees QTc Int : 442 ms Sinus tachycardia Possible Left atrial enlargement Left ventricular hypertrophy with repolarization abnormality ( [place] product ) Abnormal ECG When compared with ECG of 20-AUG-2021 10:08, ST now depressed in Lateral leads Referred By: Rashmi Verdugo Electronically Signed By:STANFORD ERICKSON
[2021-08-25 12:55] LABS: Basophils Absolute Auto 0.1 X10*3/uL (0.0-0.2); Basophils Percent Auto 0.4 % (0-2); Eosinophils Absolute Auto 0.2 X10*3/uL (0.0-0.4); Eosinophils Percent Auto 1.4 % (0-4); Hematocrit 45.2 % (42.0-52.0); Hemoglobin 14.5 g/dl (14.0-18.0); Imm Gran Abs Auto 0.64 X10*3/uL (0.00-0.03); Imm Gran Pct Auto 3.6 % (0.0-0.4); Lymphocytes Percent Auto 35.2 % (20-40); MANUAL DIFF FLAG SCAN; Mean Corpuscular HGB Conc 32.1 g/dl (31.0-36.0); Mean Corpuscular Hemoglobin 29.8 pg (27.0-33.0); Mean Corpuscular Volume 92.8 fL (80.0-98.0); Mean Platelet Volume 10.3 fL (9.4-12.4); Monocytes Absolute Auto 1.2 X10*3/uL (0.1-1.2); Monocytes Percent Auto 6.6 % (2-11); Neutrophils Absolute Auto 9.3 x10*3/uL (2.0-8.3); Neutrophils Percent Auto 52.8 % (45-73); Platelet Count 302 X10*3/uL (160-400); Red Blood Count 4.87 X10*6/uL (4.60-5.80); Red Cell Distribution Width 12.5 % (11.0-16.0); SCAN SMEAR FLAG 1; White Blood Count 17.7 X10*3/uL (4.8-10.8)
[2021-08-25 12:56] LABS: Lymphocytes Absolute Auto 6.2 X10*3/uL (1.2-4.9)
--- NOTE | 2021-08-25 12:56 | ED_ITS ---
HPI - Altered Mental Status General Chief Complaint: Overdose Stated Complaint: unresponsive Time Seen by Provider: 08/25/21 12:38 Limitations: altered mental status History of Present Illness HPI narrative: This is a 51 years old brought in by the girl friend because of altered mental status,he arrived apneic and cyanotic to the treatment room , we started BVM because apneic, he received Narcan at arrival to the ED MD complaint: altered mental status Onset (ago): minute(s) (5) Timing confirmed by: other (girlfriend) Severity: severe Context: drug abuse Related Data Home Medications Medication Instructions Recorded Confirmed aripiprazole 10 mg tablet 1 tab PO QAM 08/25/20 06/30/21 buspirone 10 mg tablet 1 tab PO DAILY 08/25/20 06/30/21 clonazepam 2 mg tablet 1 tab PO BID 08/25/20 06/30/21 hydroxyzine pamoate 25 mg capsule 1 cap PO BID PRN 08/25/20 06/30/21 oxcarbazepine 300 mg tablet 1 tab PO BID 08/25/20 06/30/21 prazosin 2 mg capsule 1 cap PO BID 08/25/20 06/30/21 zolpidem 10 mg tablet 1 tab PO BEDTIME PRN 08/25/20 06/30/21 oxcarbazepine 600 mg tablet 600 mg PO BID 09/10/20 06/30/21 melatonin 5 mg capsule mg PO BEDTIME PRN 06/03/21 06/30/21 quetiapine 25 mg tablet 0 mg PO 06/03/21 06/30/21 Previous Rx's Medication Instructions Recorded blood pressure monitor #1 ea 08/20/20 allopurinol 100 mg tablet 100 mg PO DAILY #30 tab 11/03/20 fenofibrate 160 mg tablet 160 mg PO DAILY 90 Days #90 tab 02/18/21 umeclidinium 62.5 mcg-vilanterol 1 ea PO DAILY #60 cap 02/20/21 25 mcg/actuation powdr for inhalation (Anoro Ellipta) folic acid 1 mg tablet 1 mg PO DAILY #30 tab 02/26/21 albuterol sulfate 2.5 mg (3 mL) INHALATION TID #225 05/12/21 ml albuterol sulfate 90 mcg/actuation 1 inh INHALATION QID PRN #6.7 g 05/15/21 aerosol inhaler (ProAir HFA) [id number] 7.5 ml PO Q4-6H PRN #473 ml 05/22/21 2 mg-30 mg-10 mg/5 mL oral syrup (Bromfed DM) azithromycin 250 mg tablet 250 mg PO DIRECTED 5 Days #6 tab 05/26/21 cholecalciferol (vitamin D3) 25 25 mcg PO DAILY 90 Days #90 cap 05/26/21 mcg (1,000 unit) capsule cyanocobalamin (vitamin B-12) 1,000 mcg PO DAILY 90 Days #90 tab 05/26/21 1,000 mcg tablet,extended release pantoprazole 40 mg tablet,delayed 40 mg PO BID 90 Days #180 tab 06/03/21 release prednisone 20 mg tablet 40 mg PO DAILY #10 tab 06/28/21 ibuprofen 800 mg tablet 800 mg PO Q8H 30 Days #90 tab 06/30/21 lisinopril 5 mg tablet 5 mg PO DAILY #90 tab 07/15/21 carisoprodol 350 mg tablet 350 mg PO TID PRN 30 Days #90 tab 08/13/21 Allergies Allergy/AdvReac Type Severity Reaction Status Date / Time bee stings Allergy Severe Anaphylaxis Verified 08/20/21 10:47 hydromorphone [From DILAUDID] AdvReac Severe VIOLENTLY Verified 08/20/21 10:47 ILL NEEDS TO EAT FIRST Review of Systems Constitutional: Constitutional: Reports no additional constitutional compl aints ENT: Denies vertigo Cardiovascular: Cardiovascular: Denies dyspnea on exertion Respiratory: Respiratory: Denies dyspnea on exertion Neurologic: Denies vertigo Hematologic/Lymphatic: Hematologic/Lymphatic: Reports no additional hematologic/lymphatic complaints FOR[facility], [facility] Past Medical History Medical History COPD (chronic obstructive pulmonary disease) Essential hypertension GERD (gastroesophageal reflux disease) Gout History of pneumonia Lumbar degenerative disc disease Lymphopenia Mixed hyperlipidemia Pernicious anemia Positive colorectal cancer screening using Cologuard test Surgical History History of arthroscopy of left knee History of esophagogastroduodenoscopy (EGD) History of shoulder surgery History of surgery History of total left knee replacement Hx of colonoscopy Status post surgical removal of malignant neoplasm of skin Family History Family History Father Lung cancer Mother Chronic mental illness Alzheimer disease Maternal Grandmother Bone cancer Hypertension Paternal Grandmother Brain cancer Maternal Uncle Cancer Family/Other Chronic mental illness Substance use disorder Social History Social History Household Members: None and Other Household Members Other:: 2 room mates Housing: House Do you presently have visiting nurse or other home services: No Alcohol intake: former Patient Tobacco Use Status: Former Tobacco user Tobacco use type: Cigarette Cigarette Packs Per Day: 1 e-Cigarette/Vaping Use: Never Used Second Hand Smoke Exposure: No Advance Directives: No Advance Directives Information Provided: No service: No Current occupational status: unemployed and disabled Physical Exam Vital Signs: Vital Signs: Last Vital Signs Temp 97.7 F 08/25/21 13:42 Pulse 85 08/25/21 14:28 Resp 18 08/25/21 14:28 BP 170/113 H 08/25/21 14:28 Pulse Ox 92 08/25/21 14:28 Oxygen Flow Rate 2 08/25/21 12:50 BMI result Body Mass Index 35.9 Const: General: lethargic and other (lethargic) Nutritional Appearance: well nourished Orientation/consciousness: patient oriented x3 and lethargic HENMT: Head: Yes normocephalic General nose exam: Normal external nose present Mouth: Normal oral and palatal mucosa present Throat: Yes posterior oropharynx normal Neck: Neck: Yes normal visual inspection and Yes full ROM Thyroid: Thyroid normal Chest: Chest palpation & inspection: normal inspection of the chest Resp: Auscultation: clear to auscultation bilaterally Cardio: Jugular venous distension: no JVD Rate: regular rate Rhythm: regular rhythm GI: Inspection: Yes normal to inspection Palpation (GI): Soft to palpation, not firm, nontender and no guarding : General: Yes no CVA tenderness Back/Spine/Pelvis: Back: no CVA tenderness Skin: General skin exam: no rashes or lesions noted Rashes: no rashes Neuro: General: patient oriented x3 Course Reevaluation(s) Reevaluation #1: Patient received IM Narcan an IV Narcan when the IV was established, he is now awake and alert anticipate discharge after 2 hours of observation Reevaluation #2: Patient is requiring supplemental oxygen to maintain an O2 sat more than 91% at this point will admit the patient MDM - Altered Mental Status Lab Data Result diagrams: 08/25/21 12:46 08/25/21 12:47 Labs: Lab Results 08/25/21 08/25/21 08/25/21 Range/Units 12:38 12:46 12:46 WBC 17.7 H (4.8-10.8) X10*3/uL RBC 4.87 (4.60-5.80) X10*6/uL Hgb 14.5 (14.0-18.0) g/dl Hct 45.2 (42.0-52.0) % MCV 92.8 (80.0-98.0) fL MCH 29.8 (27.0-33.0) pg MCHC 32.1 (31.0-36.0) g/dl RDW 12.5 (11.0-16.0) % Plt Count 302 D (160-400) X10*3/uL MPV 10.3 (9.4-12.4) fL Immature Gran % (Auto) 3.6 H (0.0-0.4) % Neut % (Auto) 52.8 (45-73) % Lymph % (Auto) 35.2 (20-40) % [place] % (Auto) 6.6 (2-11) % Eos % (Auto) 1.4 (0-4) % Baso % (Auto) 0.4 (0-2) % Lymph # (Auto) 6.2 H (1.2-4.9) X10*3/uL [place] # (Auto) 1.2 (0.1-1.2) X10*3/uL Eos # (Auto) 0.2 (0.0-0.4) X10*3/uL Baso # (Auto) 0.1 (0.0-0.2) X10*3/uL Abs Immat Gran (auto) 0.64 H (0.00-0.03) X10*3/uL Absolute Neuts (auto) 9.3 H (2.0-8.3) x10*3/uL Absolute Nucleated RBC 0.000 (0.0-0.012) X10*3/uL Nucleated RBC % (auto) 0.0 (0.0-0.2) /100WBC Smear Tech's Comments VERIFIED PT (9.9-13.0) SEC INR (0.9-1.1) O2 Saturation % ABG pH at Pt Temp (7.35-7.45) ABG pH (Temp Correct) (7.35-7.45) ABG pCO2 at Pt Temp (32-45) mmHg ABG pCO2 (Temp Corrct (32-45) mmHg ABG pO2 at Pt Temp (83-108) mmHg ABG pO2 (Temp Correct (83-108) ABG HCO3 (22-26) mmol/L ABG Base Excess (Actual) mmol/L VBG pH (7.32-7.43) VBG pCO2 mmHg VBG pO2 mmHg VBG HCO3 (22-26) mmol/L VBG O2 Saturation % VBG Base Excess mmol/L Sodium (135-145) mmol/L Potassium (3.3-5.1) mmol/L Chloride (96-108) mmol/L Carbon Dioxide (22-29) mmol/L Anion Gap (12-20) BUN (9-16) mg/dL Creatinine (0.5-1.4) mg/dL Estim Creat Clear Calc Estimated GFR POC Glucose 228 H (60-115) mg/dL Random Glucose (60-115) mg/dL Lactic Acid (0.5-2.0) mmol/L Calcium (8.4-10.2) mg/dL Magnesium (1.6-2.6) mg/dL Total Bilirubin (0.0-1.0) mg/dL AST (5-37) U/L ALT (0-40) U/L Alkaline Phosphatase (39-117) U/L Troponin I High Sens (<3.5-35.0) ng/L Total Protein (6.5-8.0) g/dL Albumin (3.5-5.0) g/dL Ethyl Alcohol < 10 mg/dL COVID-19 ([facility]) (Negative) COVID-19 Clin Com 08/25/21 08/25/21 08/25/21 Range/Units 12:47 12:47 12:47 WBC (4.8-10.8) X10*3/uL RBC (4.60-5.80) X10*6/uL Hgb (14.0-18.0) g/dl Hct (42.0-52.0) % MCV (80.0-98.0) fL MCH (27.0-33.0) pg MCHC (31.0-36.0) g/dl RDW (11.0-16.0) % Plt Count (160-400) X10*3/uL MPV (9.4-12.4) fL Immature Gran % (Auto) (0.0-0.4) % Neut % (Auto) (45-73) % Lymph % (Auto) (20-40) % [place] % (Auto) (2-11) % Eos % (Auto) (0-4) % Baso % (Auto) (0-2) % Lymph # (Auto) (1.2-4.9) X10*3/uL [place] # (Auto) (0.1-1.2) X10*3/uL Eos # (Auto) (0.0-0.4) X10*3/uL Baso # (Auto) (0.0-0.2) X10*3/uL Abs Immat Gran (auto) (0.00-0.03) X10*3/uL Absolute Neuts (auto) (2.0-8.3) x10*3/uL Absolute Nucleated RBC (0.0-0.012) X10*3/uL Nucleated RBC % (auto) (0.0-0.2) /100WBC Smear Tech's Comments PT 12.1 (9.9-13.0) SEC INR 1.1 (0.9-1.1) O2 Saturation % ABG pH at Pt Temp (7.35-7.45) ABG pH (Temp Correct) (7.35-7.45) ABG pCO2 at Pt Temp (32-45) mmHg ABG pCO2 (Temp Corrct (32-45) mmHg ABG pO2 at Pt Temp (83-108) mmHg ABG pO2 (Temp Correct (83-108) ABG HCO3 (22-26) mmol/L ABG Base Excess (Actual) mmol/L VBG pH (7.32-7.43) VBG pCO2 mmHg VBG pO2 mmHg VBG HCO3 (22-26) mmol/L VBG O2 Saturation % VBG Base Excess mmol/L Sodium 141 (135-145) mmol/L Potassium 3.5 D (3.3-5.1) mmol/L Chloride 108 (96-108) mmol/L Carbon Dioxide 20 L (22-29) mmol/L Anion Gap 17 (12-20) BUN 10 (9-16) mg/dL Creatinine 1.18 (0.5-1.4) mg/dL Estim Creat Clear Calc TNP Estimated GFR > 60 POC Glucose (60-115) mg/dL Random Glucose 257 H D (60-115) mg/dL Lactic Acid 6.2 H* (0.5-2.0) mmol/L Calcium 9.1 (8.4-10.2) mg/dL Magnesium 2.5 (1.6-2.6) mg/dL Total Bilirubin 0.4 (0.0-1.0) mg/dL AST 16 (5-37) U/L ALT 24 (0-40) U/L Alkaline Phosphatase 43 (39-117) U/L Troponin I High Sens (<3.5-35.0) ng/L Total Protein 7.1 (6.5-8.0) g/dL Albumin 4.1 (3.5-5.0) g/dL Ethyl Alcohol mg/dL COVID-19 ([facility]) (Negative) COVID-19 Clin Com 08/25/21 08/25/21 08/25/21 Range/Units 12:47 12:48 12:57 WBC (4.8-10.8) X10*3/uL RBC (4.60-5.80) X10*6/uL Hgb (14.0-18.0) g/dl Hct (42.0-52.0) % MCV (80.0-98.0) fL MCH (27.0-33.0) pg MCHC (31.0-36.0) g/dl RDW (11.0-16.0) % Plt Count (160-400) X10*3/uL MPV (9.4-12.4) fL Immature Gran % (Auto) (0.0-0.4) % Neut % (Auto) (45-73) % Lymph % (Auto) (20-40) % [place] % (Auto) (2-11) % Eos % (Auto) (0-4) % Baso % (Auto) (0-2) % Lymph # (Auto) (1.2-4.9) X10*3/uL [place] # (Auto) (0.1-1.2) X10*3/uL Eos # (Auto) (0.0-0.4) X10*3/uL Baso # (Auto) (0.0-0.2) X10*3/uL Abs Immat Gran (auto) (0.00-0.03) X10*3/uL Absolute Neuts (auto) (2.0-8.3) x10*3/uL Absolute Nucleated RBC (0.0-0.012) X10*3/uL Nucleated RBC % (auto) (0.0-0.2) /100WBC Smear Tech's Comments PT (9.9-13.0) SEC INR (0.9-1.1) O2 Saturation % ABG pH at Pt Temp (7.35-7.45) ABG pH (Temp Correct) (7.35-7.45) ABG pCO2 at Pt Temp (32-45) mmHg ABG pCO2 (Temp Corrct (32-45) mmHg ABG pO2 at Pt Temp (83-108) mmHg ABG pO2 (Temp Correct (83-108) ABG HCO3 (22-26) mmol/L ABG Base Excess (Actual) mmol/L VBG pH 7.30 L (7.32-7.43) VBG pCO2 37 mmHg VBG pO2 105 mmHg VBG HCO3 18 L (22-26) mmol/L VBG O2 Saturation 98.0 % VBG Base Excess -6.8 mmol/L Sodium (135-145) mmol/L Potassium (3.3-5.1) mmol/L Chloride (96-108) mmol/L Carbon Dioxide (22-29) mmol/L Anion Gap (12-20) BUN (9-16) mg/dL Creatinine (0.5-1.4) mg/dL Estim Creat Clear Calc Estimated GFR POC Glucose (60-115) mg/dL Random Glucose (60-115) mg/dL Lactic Acid (0.5-2.0) mmol/L Calcium (8.4-10.2) mg/dL Magnesium (1.6-2.6) mg/dL Total Bilirubin (0.0-1.0) mg/dL AST (5-37) U/L ALT (0-40) U/L Alkaline Phosphatase (39-117) U/L Troponin I High Sens < 3.5 (<3.5-35.0) ng/L Total Protein (6.5-8.0) g/dL Albumin (3.5-5.0) g/dL Ethyl Alcohol mg/dL COVID-19 ([facility]) Negative (Negative) COVID-19 Clin Com See Note 08/25/21 Range/Units 13:39 WBC (4.8-10.8) X10*3/uL RBC (4.60-5.80) X10*6/uL Hgb (14.0-18.0) g/dl Hct (42.0-52.0) % MCV (80.0-98.0) fL MCH (27.0-33.0) pg MCHC (31.0-36.0) g/dl RDW (11.0-16.0) % Plt Count (160-400) X10*3/uL MPV (9.4-12.4) fL Immature Gran % (Auto) (0.0-0.4) % Neut % (Auto) (45-73) % Lymph % (Auto) (20-40) % [place] % (Auto) (2-11) % Eos % (Auto) (0-4) % Baso % (Auto) (0-2) % Lymph # (Auto) (1.2-4.9) X10*3/uL [place] # (Auto) (0.1-1.2) X10*3/uL Eos # (Auto) (0.0-0.4) X10*3/uL Baso # (Auto) (0.0-0.2) X10*3/uL Abs Immat Gran (auto) (0.00-0.03) X10*3/uL Absolute Neuts (auto) (2.0-8.3) x10*3/uL Absolute Nucleated RBC (0.0-0.012) X10*3/uL Nucleated RBC % (auto) (0.0-0.2) /100WBC Smear Tech's Comments PT (9.9-13.0) SEC INR (0.9-1.1) O2 Saturation 95.0 % ABG pH at Pt Temp 7.28 L (7.35-7.45) ABG pH (Temp Correct) 7.29 L (7.35-7.45) ABG pCO2 at Pt Temp 49 H (32-45) mmHg ABG pCO2 (Temp Corrct 48 H (32-45) mmHg ABG pO2 at Pt Temp 94 (83-108) mmHg ABG pO2 (Temp Correct 91 (83-108) ABG HCO3 23 (22-26) mmol/L ABG Base Excess (Actual) -3.7 mmol/L VBG pH (7.32-7.43) VBG pCO2 mmHg VBG pO2 mmHg VBG HCO3 (22-26) mmol/L VBG O2 Saturation % VBG Base Excess mmol/L Sodium (135-145) mmol/L Potassium (3.3-5.1) mmol/L Chloride (96-108) mmol/L Carbon Dioxide (22-29) mmol/L Anion Gap (12-20) BUN (9-16) mg/dL Creatinine (0.5-1.4) mg/dL Estim Creat Clear Calc Estimated GFR POC Glucose (60-115) mg/dL Random Glucose (60-115) mg/dL Lactic Acid (0.5-2.0) mmol/L Calcium (8.4-10.2) mg/dL Magnesium (1.6-2.6) mg/dL Total Bilirubin (0.0-1.0) mg/dL AST (5-37) U/L ALT (0-40) U/L Alkaline Phosphatase (39-117) U/L Troponin I High Sens (<3.5-35.0) ng/L Total Protein (6.5-8.0) g/dL Albumin (3.5-5.0) g/dL Ethyl Alcohol mg/dL COVID-19 ([facility]) (Negative) COVID-19 Clin Com Imaging Data Chest x-ray: Radiologist's impression: EXAMINATION: XR CHEST CLINICAL INFORMATION: SOB. COMPARISON: None TECHNIQUE: Frontal view of the chest was obtained. FINDINGS: The lungs are well-expanded and clear. There is platelike atelectasis in the lingula. Rest of the lungs are clear. The heart size and pulmonary vascularity is normal. No gross bony abnormality seen. XR/XR chest 1V IMPRESSION: Platelike atelectasis in the lingula. ? Dictated By: Kashmir Elliott MD Signed By: <Electronically signed by Kashmir Elliott MD in OV> 08/25/21 1358 DD/ 1345 ECG Data ECG #1: Pacemaker model: NSR [address]-t changes Procedures EJ/Peripheral Line Arm R: Skin Cleansed in Sterile Fashion: Yes Size (gauge): 18 (under US guided cannulated rt basilic vein with 18 bhavik introcan 1 3/4 inches) IV Secured and Dressing Applied: Yes Patient Tolerated Procedure: well Critical Care Time Critical Care Time Critical Care Time: Yes Total Critical Care Time: 45 Attestation: IM and IV narcan,BVM Discharge Plan Discharge Clinical Impression: Opioid overdose, Hypoxemia, Lactic acid acidosis Patient Disposition: Admitted As Inpatient
[2021-08-25 13:03] LABS: INTERNATIONAL NORM RATIO 1.1 (0.9-1.1); Prothrombin Time 12.1 SEC (9.9-13.0)
[2021-08-25 13:04] LABS: VBG Base Excess -6.8 mmol/L; VBG HCO3 18 mmol/L (22-26); VBG pCO2 37 mmHg; VBG pO2 105 mmHg
[2021-08-25 13:05] LABS: Venous Blood Gas Refer to POC result
[2021-08-25 13:07] LABS: Ethanol < 10 mg/dL
[2021-08-25 13:10] LABS: Alanine Aminotransferase 24 U/L (0-40); Albumin Level 4.1 g/dL (3.5-5.0); Alkaline Phosphatase 43 U/L (39-117); Anion Gap 17 (12-20); Aspartate Amino Transferase 16 U/L (5-37); Bilirubin Total 0.4 mg/dL (0.0-1.0); Blood Urea Nitrogen 10 mg/dL (9-16); Calcium 9.1 mg/dL (8.4-10.2); Carbon Dioxide 20 mmol/L (22-29); Chloride 108 mmol/L (96-108); Estimated Glomerular Filt Rate > 60; Glucose Random 257 mg/dL (60-115); Magnesium 2.5 mg/dL (1.6-2.6); Potassium 3.5 mmol/L (3.3-5.1); Sodium 141 mmol/L (135-145); Total Protein 7.1 g/dL (6.5-8.0)
[2021-08-25 13:14] LABS: SLIDE REVIEW VERIFIED
[2021-08-25 13:14] LABS: Troponin-I High Sensitivity < 3.5 ng/L (<3.5-35.0)
[2021-08-25 13:15] LABS: Lactic Acid 6.2 mmol/L (0.5-2.0)
[2021-08-25 13:31] LABS: COVID-19 Test Negative (Negative); IDNOW Serial# 9DD0AD1C
[2021-08-25] MEDS: 0.9 % Sodium Chloride 1,000 ML 999 ML IVCONT ×2 (13:35→14:14)
[2021-08-25 13:46] LABS: ABG Base Excess -3.7 mmol/L; ABG HCO3 23 mmol/L (22-26); ABG pCO2 49 mmHg (32-45); ABG pCO2 TC 48 mmHg (32-45); ABG pH 7.28 (7.35-7.45); ABG pH TC 7.29 (7.35-7.45); ABG pO2 94 mmHg (83-108); ABG pO2 TC 91 (83-108)
[2021-08-25 14:13] LABS: Glucose, Whole Blood 228 mg/dL (60-115)
--- NOTE | 2021-08-25 14:39 | MHC.CARE ---
When Pt is medically stable please consult CARE Team/ Recovery Team for SUDE.
[2021-08-25 14:51] LABS: Reflex Lactate? Lactic Acid Added
[2021-08-25] MEDS: Naloxone HCl 2 MG/2 ML SYRINGE IVPUSH ×2 (15:50→18:41)
[2021-08-25 15:57] LABS: ~Lactic Acid-LAB USE ONLY 0.9 mmol/L (0.5-2.0)
--- NOTE | 2021-08-25 16:01 | PM.IMHP ---
History of Present Illness Date of Service: 08/25/21 Chief Complaint: overdose 51yo M with COPD, HTN, gout, pernicious anemia, and GERD. He was recently seen here in the [facility] ED on 08/20/20 after falling on the ice and complaining of headache and neck pain as well as chest pain. CT head and C-spine and CXR were negative; however, he was diagnosed with Covid-19 infection. He was not hypoxic. He was referred for outpatient monoclonal antibody infusion but it is unknown whether he received it or not. He was brought in today by his girlfriend and was pulled out of the car by EMS staff apneic and cyanotic. He was given 4 mg of IM naloxone and then 2 mg of IV naloxone and woke up. He required 2L oxygen to maintain SaO2 of greater than 91%. He was observed for 2 hours. Lactic acid was 6.1 and he was given IV fluids. When I arrived to assess the pt, he was bradypneic and hypoxic with SaO2 83% with nasal trumpet in place and no gag reflex. Subsequently, he was given another 2 mg of IV naloxone with normalization of breathing rate and oxygen saturation. He started mumbling and reaching for his phone and recovered his gag. But I'm unable to get much other history out of him so this history is per review of the EHR and discussion with the ER physician. No documented history of heroin or other opioid abuse. Urine toxicology is pending. Covid-19 BRANDON is now negative. Review of Systems Review of Systems: Yes Unobtainable due to mental status [facility] Medical History COPD (chronic obstructive pulmonary disease) Essential hypertension GERD (gastroesophageal reflux disease) Gout History of pneumonia Lumbar degenerative disc disease Lymphopenia Mixed hyperlipidemia Pernicious anemia Positive colorectal cancer screening using Cologuard test Family History Father Lung cancer Mother Chronic mental illness Alzheimer disease Maternal Grandmother Bone cancer Hypertension Paternal Grandmother Brain cancer Maternal Uncle Cancer Family/Other Chronic mental illness Substance use disorder Surgical History History of arthroscopy of left knee History of esophagogastroduodenoscopy (EGD) History of shoulder surgery History of surgery History of total left knee replacement Hx of colonoscopy Status post surgical removal of malignant neoplasm of skin Social History Household Members: None and Other Household Members Other:: 2 room mates Housing: House Do you presently have visiting nurse or other home services: No Alcohol intake: former Patient Tobacco Use Status: Former Tobacco user Tobacco use type: Cigarette Cigarette Packs Per Day: 1 e-Cigarette/Vaping Use: Never Used Second Hand Smoke Exposure: No Advance Directives: No Advance Directives Information Provided: No service: No Current occupational status: unemployed and disabled Meds Allergies Allergy/AdvReac Type Severity Reaction Status Date / Time bee stings Allergy Severe Anaphylaxis Verified 08/20/21 10:47 hydromorphone [From DILAUDID] AdvReac Severe VIOLENTLY Verified 08/20/21 10:47 ILL NEEDS TO EAT FIRST Active Medications: Current Medications Lactated Ringer's (Lr) 1,000 mls @ 150 mls/hr IVCONT .[id number] GUTIERREZ Naloxone HCl (Naloxone Hcl 2 Mg/2 Ml Syringe) 2 mg IVPUSH ONCE PRN PRN Reason: opioid overdose Pharmacy Consult (Consult Rx Perform Med Rec) 1 each MISCELLANE STAT STA Stop: 08/25/21 15:43 Home Medications Medication Instructions Recorded Confirmed Last Taken Type aripiprazole 10 mg tablet 1 tab PO QAM 08/25/20 08/25/21 Unknown History buspirone 10 mg tablet 1 tab PO TID 08/25/20 08/25/21 01/16/21 03:30 History clonazepam 2 mg tablet 1 tab PO BID 08/25/20 08/25/21 01/16/21 03:30 History hydroxyzine pamoate 25 mg capsule 1 cap PO BID PRN 08/25/20 08/25/21 Unknown History oxcarbazepine 300 mg tablet 1 tab PO BID 08/25/20 08/25/21 01/16/21 03:30 History prazosin 2 mg capsule 1 cap PO BID 08/25/20 08/25/21 Unknown History zolpidem 10 mg tablet 1 tab PO BEDTIME PRN 08/25/20 08/25/21 Unknown History oxcarbazepine 600 mg tablet 600 mg PO BID 01/08/25/21 01/16/21 03:30 History melatonin 5 mg capsule 5 mg PO BEDTIME PRN 06/03/21 08/25/21 Unknown History pantoprazole 40 mg tablet,delayed 40 mg PO DAILY 08/25/21 08/25/21 Unknown History release Physical Exam Vital Signs and Narrative: Vital Signs: Last Vital Signs Temp 97.7 F 08/25/21 13:42 Pulse 102 H 08/25/21 15:53 Resp 9 L 08/25/21 15:53 BP 161/92 H 08/25/21 15:53 Pulse Ox 86 L 08/25/21 15:53 Oxygen Flow Rate 2 08/25/21 12:50 BMI result Body Mass Index 35.9 Gen: somnolent but arousable HEENT: sclera anicteric, moist mucus membranes, nasal trumpet in place Neck: supple Lungs: diminished bilaterally Heart: regular rate and rhythm, no murmurs Abd: soft, non-tender, non-distended Ext: no edema Skin: warm/well-perfused Neuro: arousable, gag reflux present Psych: appropriate affect Results Labs CBC and Chem 7: 08/26/21 10:24 08/26/21 10:24 Labs: Laboratory Results - last 24 hr 08/25/21 08/25/21 08/25/21 12:38 12:46 12:46 MCV 92.8 MCH 29.8 MCHC 32.1 RDW 12.5 Plt Count 302 D MPV 10.3 Immature Gran % (Auto) 3.6 H Neut % (Auto) 52.8 Lymph % (Auto) 35.2 [place] % (Auto) 6.6 Eos % (Auto) 1.4 Baso % (Auto) 0.4 Lymph # (Auto) 6.2 H [place] # (Auto) 1.2 Eos # (Auto) 0.2 Baso # (Auto) 0.1 Abs Immat Gran (auto) 0.64 H Absolute Neuts (auto) 9.3 H Absolute Nucleated RBC 0.000 Nucleated RBC % (auto) 0.0 Smear Tech's Comments VERIFIED PT INR O2 Saturation ABG pH at Pt Temp ABG pH (Temp Correct) ABG pCO2 at Pt Temp ABG pCO2 (Temp Corrct ABG pO2 at Pt Temp ABG pO2 (Temp Correct ABG HCO3 ABG Base Excess (Actual) VBG pH VBG pCO2 VBG pO2 VBG HCO3 VBG O2 Saturation VBG Base Excess Anion Gap Estim Creat Clear Calc Estimated GFR POC Glucose 228 H Random Glucose Lactic Acid Lactic Acid F/U @ 2Hr Calcium Magnesium Total Bilirubin AST ALT Alkaline Phosphatase Troponin I High Sens Total Protein Albumin Ethyl Alcohol < 10 COVID-19 (BRANDON) COVID-19 [place] 08/25/21 08/25/21 08/25/21 12:47 12:47 12:47 MCV MCH MCHC RDW Plt Count MPV Immature Gran % (Auto) Neut % (Auto) Lymph % (Auto) [place] % (Auto) Eos % (Auto) Baso % (Auto) Lymph # (Auto) [place] # (Auto) Eos # (Auto) Baso # (Auto) Abs Immat Gran (auto) Absolute Neuts (auto) Absolute Nucleated RBC Nucleated RBC % (auto) Smear Tech's Comments PT 12.1 INR 1.1 O2 Saturation ABG pH at Pt Temp ABG pH (Temp Correct) ABG pCO2 at Pt Temp ABG pCO2 (Temp Corrct ABG pO2 at Pt Temp ABG pO2 (Temp Correct ABG HCO3 ABG Base Excess (Actual) VBG pH VBG pCO2 VBG pO2 VBG HCO3 VBG O2 Saturation VBG Base Excess Anion Gap 17 Estim Creat Clear Calc TNP Estimated GFR > 60 POC Glucose Random Glucose 257 H D Lactic Acid 6.2 H* Lactic Acid F/U @ 2Hr Calcium 9.1 Magnesium 2.5 Total Bilirubin 0.4 AST 16 ALT 24 Alkaline Phosphatase 43 Troponin I High Sens Total Protein 7.1 Albumin 4.1 Ethyl Alcohol COVID-19 (BRANDON) COVID-19 [place] 08/25/21 08/25/21 08/25/21 12:47 12:48 12:57 MCV MCH MCHC RDW Plt Count MPV Immature Gran % (Auto) Neut % (Auto) Lymph % (Auto) [place] % (Auto) Eos % (Auto) Baso % (Auto) Lymph # (Auto) [place] # (Auto) Eos # (Auto) Baso # (Auto) Abs Immat Gran (auto) Absolute Neuts (auto) Absolute Nucleated RBC Nucleated RBC % (auto) Smear Tech's Comments PT INR O2 Saturation ABG pH at Pt Temp ABG pH (Temp Correct) ABG pCO2 at Pt Temp ABG pCO2 (Temp Corrct ABG pO2 at Pt Temp ABG pO2 (Temp Correct ABG HCO3 ABG Base Excess (Actual) VBG pH 7.30 L VBG pCO2 37 VBG pO2 105 VBG HCO3 18 L VBG O2 Saturation 98.0 VBG Base Excess -6.8 Anion Gap Estim Creat Clear Calc Estimated GFR POC Glucose Random Glucose Lactic Acid Lactic Acid F/U @ 2Hr Calcium Magnesium Total Bilirubin AST ALT Alkaline Phosphatase Troponin I High Sens < 3.5 Total Protein Albumin Ethyl Alcohol COVID-19 (BRANDON) Negative COVID-19 Clin Com See Note 08/25/21 08/25/21 13:39 15:40 MCV MCH MCHC RDW Plt Count MPV Immature Gran % (Auto) Neut % (Auto) Lymph % (Auto) [place] % (Auto) Eos % (Auto) Baso % (Auto) Lymph # (Auto) [place] # (Auto) Eos # (Auto) Baso # (Auto) Abs Immat Gran (auto) Absolute Neuts (auto) Absolute Nucleated RBC Nucleated RBC % (auto) Smear Tech's Comments PT INR O2 Saturation 95.0 ABG pH at Pt Temp 7.28 L ABG pH (Temp Correct) 7.29 L ABG pCO2 at Pt Temp 49 H ABG pCO2 (Temp Corrct 48 H ABG pO2 at Pt Temp 94 ABG pO2 (Temp Correct 91 ABG HCO3 23 ABG Base Excess (Actual) -3.7 VBG pH VBG pCO2 VBG pO2 VBG HCO3 VBG O2 Saturation VBG Base Excess Anion Gap Estim Creat Clear Calc Estimated GFR POC Glucose Random Glucose Lactic Acid Lactic Acid F/U @ 2Hr 0.9 Calcium Magnesium Total Bilirubin AST ALT Alkaline Phosphatase Troponin I High Sens Total Protein Albumin Ethyl Alcohol COVID-19 (BRANDON) COVID-19 Clin Com Imaging Radiologist's Impressions: Impressions Chest X-Ray 08/25/21 13:45 IMPRESSION: Platelike atelectasis in the lingula. Assessment and Plan (1) COVID-19: Status: Acute (2) Opioid overdose: Status: Acute (3) Hypoxemia: Status: Acute (4) Lactic acid acidosis: Status: Acute 51yo M with COPD, HTN, gout, pernicious anemia, and GERD recently diagnosed with Covid-19 infection [unknown vaccination status], presumably with recent opioid overdose presenting with altered mental status and hypoxic respiratory failure likely due to opioid overdose # opioid overdose # toxic/metabolic encephalopathy - admit to telemetry/IMC, prn naloxone # hypoxic respiratory failure # COPD # recent Covid-19 infection - supplemental O2 to maintain SaO2 88-92% - dexamethasone 6 mg daily - check inflammatory markers - prn nebs # lactic acidosis - due to hypovolemia- give aggressive IV fluid resuscitation # pernicious anemia - B12 # HTN - antihypertensives pending medication reconcilitation # gout - allopurinol pending medication reconciliation # mood disorder - psychiatric medications pending medication reconciliqation # GERD - PPI # opioid use disorder - CARE Team and Addiction Medicine consultations - screen HBV/HCV/HIV # VTE ppx - LMWH Quality Stroke Does the patient have a stroke diagnosis?: No VTE Prior VTE?: No VTE Risk Level:: Medical - moderate - high VTE Device Contraindication: N/A - Device Ordered VTE Drug Contraindication: N/A - Med Ordered
[2021-08-25 16:07] LABS: C Reactive Protein 0.42 mg/dL (< or = 0.50); Lactate Dehydrogenase 238 U/L (118-273)
[2021-08-25 16:26] LABS: Ferritin 239 ng/mL (20-250)
[2021-08-25 16:35] LABS: D Dimer High Sensitivity < 150 NG/ML
[2021-08-25 16:37] LABS: Procalcitonin < 0.02 ng/mL
--- NOTE | 2021-08-25 16:52 | PHA.MEDREC ---
Pharmacy Consult ? Medication Reconciliation Pharmacy has completed the medication reconciliation. Spoke with sister ella [phone]
[2021-08-25] MEDS: Lactated Ringers 1,000 ML 150 ML IVCONT ×2 (17:33→23:07)
[2021-08-25] MEDS: dexAMETHasone sod phosphate 4 MG/ML VIAL 6 MG IVPUSH (17:44)
[2021-08-25] MEDS: Enoxaparin Sodium 40 MG/0.4 ML SYRINGE SUBCUT (18:06)
--- NOTE | 2021-08-25 19:45 | PC.NURSE ---
pt resting in stretcher in NAD, pt wakes to voice. respirations easy, n/l. skin w/d. pt on monitor with HR 76, B/P wnl. will continue to monitor pt.
[2021-08-25] MEDS: Albuterol/Iprat 2.5/0.5MG 3 ML AMPUL.NEB INHALE (20:10)
--- NOTE | 2021-08-25 20:16 | PC.NURSE ---
respiratory in room for resp. tx.
[2021-08-25 21:21] LABS: ABG Refer to POC result
--- NOTE | 2021-08-26 00:26 | PC.NURSE ---
pt upset he is NPO. Pt educated on being NPO. Pt denies any complaints and states he understood. will continue to monitor pt.
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
--- NOTE | 2021-08-26 03:17 | PC.NURSE ---
pt moved to #15 for comfort.
[2021-08-26] MEDS: Lactated Ringers 1,000 ML 150 ML IVCONT (04:49)
[2021-08-26 07:07] VITALS: BP 130/64; PULSE 88; RESP 14; O2SAT 96
[2021-08-26] MEDS: Albuterol/Iprat 2.5/0.5MG 3 ML AMPUL.NEB INHALE (08:03)
[2021-08-26 08:04] VITALS: PULSE 78; RESP 20; O2SAT 95
[2021-08-26] MEDS: Cholecalciferol (Vitamin D3) 25 MCG TABLET PO (09:55)
[2021-08-26] MEDS: Cyanocobalamin (Vitamin B-12) 1,000 MCG TABLET 1000 MCG PO (09:55)
[2021-08-26] MEDS: Folic Acid 1 MG TABLET PO (09:55)
[2021-08-26] MEDS: lisinopriL 5 MG TABLET PO (09:55)
[2021-08-26] MEDS: Prazosin HCL 1 MG CAPSULE 2 MG PO (09:56)
[2021-08-26] MEDS: busPIRone HCl 10 MG TABLET PO (09:56)
[2021-08-26] MEDS: ARIPiprazole 10 MG TABLET PO (09:56)
[2021-08-26] MEDS: OXcarbazepine 300 MG TABLET 900 MG PO (09:56)
[2021-08-26 10:03] VITALS: BP 132/59; PULSE 75; O2SAT 95
[2021-08-26] MEDS: 0.9 % Sodium Chloride Flush 3 ML SYRINGE IVFLUSH (10:04)
[2021-08-26] MEDS: dexAMETHasone sod phosphate 4 MG/ML VIAL 6 MG IVPUSH (10:04)
[2021-08-26 10:36] LABS: Hematocrit 40.1 % (42.0-52.0); Hemoglobin 12.8 g/dl (14.0-18.0); Mean Corpuscular HGB Conc 31.9 g/dl (31.0-36.0); Mean Corpuscular Hemoglobin 29.4 pg (27.0-33.0); Platelet Count 265 X10*3/uL (160-400); Red Blood Count 4.36 X10*6/uL (4.60-5.80); Red Cell Distribution Width 12.8 % (11.0-16.0); White Blood Count 15.5 X10*3/uL (4.8-10.8)
--- NOTE | 2021-08-26 10:37 | HO.ADDICTCON ---
History of Present Illness Date of Service: 08/26/2021 Chief Complaint: Opioid overdose, hypoxia Reason for Consult: opioid overdose Requesting physician: Paola David Sources of Information: patient interviewed and chart reviewed HPI Narrative: Patient is a 51 year old male who presented to [facility] ED apneic after reportedly using 2 bags of cocaine IN. Narcan administered with good effect. Patient seen this morning in room 15. He was awake, alert, pleasant and engaged in interview. He is extremely apologetic and taking responsibility for overdose I take full responsibility for what happened This fiction writer encouraged patient to reframe this statement as this is not a situation of blame, but one to explore what led up to this. He reports that he had been in recovery for over ten years and is very active in his recovery, attending meetings, engaged with sponsor and working in the community. He reports that recent miscarriage of his partner and his babies (twins) was a trigger for him in that he felt unsupported while others rallied around her. 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 He was not aware there were opioids in what he used, he believed he was using cocaine. Denies any history of overdose, Denies any treatment with medications for IVAN. Declines any referrals at this time--recovery network aware of what occured and he wishes to move forward with their support Personal & Social History: lives with 2 roommates Review of Systems Review of Systems Yes all other systems are reviewed and are negative Diagnostics Vital Signs (24Hr): Vital Signs - 24 hr 08/25/21 12:50 08/25/21 13:42 08/25/21 14:00 Temperature 97.7 F 97.7 F Pulse Rate 78 72 74 Respiratory Rate 15 13 9 L Blood Pressure 137/87 151/95 H 161/11 H Pulse Oximetry 94 92 93 08/25/21 14:28 08/25/21 15:53 08/25/21 15:59 Temperature Pulse Rate 85 102 H 84 Respiratory Rate 18 9 L 22 H Blood Pressure 170/113 H 161/92 H 151/99 H Pulse Oximetry 92 86 L 90 L 08/25/21 18:39 08/25/21 20:14 08/26/21 07:07 Temperature Pulse Rate 78 76 88 Respiratory Rate 21 H 13 14 Blood Pressure 132/87 130/64 Pulse Oximetry 88 L 96 08/26/21 08:04 08/26/21 10:03 Temperature Pulse Rate 78 75 Respiratory Rate 20 Blood Pressure 132/59 L Pulse Oximetry 95 BMI result Body Mass Index 35.9 Labs Results: 08/26/21 10:24 08/26/21 10:24 Labs: Laboratory Results - last 48 hr 08/25/21 08/25/21 08/25/21 12:38 12:46 12:46 WBC 17.7 H RBC 4.87 Hgb 14.5 Hct 45.2 MCV 92.8 MCH 29.8 MCHC 32.1 RDW 12.5 Plt Count 302 D MPV 10.3 Immature Gran % (Auto) 3.6 H Neut % (Auto) 52.8 Lymph % (Auto) 35.2 [place] % (Auto) 6.6 Eos % (Auto) 1.4 Baso % (Auto) 0.4 Lymph # (Auto) 6.2 H [place] # (Auto) 1.2 Eos # (Auto) 0.2 Baso # (Auto) 0.1 Abs Immat Gran (auto) 0.64 H Absolute Neuts (auto) 9.3 H Absolute Nucleated RBC 0.000 Nucleated RBC % (auto) 0.0 Smear Tech's Comments VERIFIED PT INR D-Dimer High Sensitivty O2 Saturation ABG pH at Pt Temp ABG pH (Temp Correct) ABG pCO2 at Pt Temp ABG pCO2 (Temp Corrct ABG pO2 at Pt Temp ABG pO2 (Temp Correct ABG HCO3 ABG Base Excess (Actual) VBG pH VBG pCO2 VBG pO2 VBG HCO3 VBG O2 Saturation VBG Base Excess Sodium Potassium Chloride Carbon Dioxide Anion Gap BUN Creatinine Estim Creat Clear Calc Estimated GFR POC Glucose 228 H Random Glucose Lactic Acid Lactic Acid F/U @ 2Hr Calcium Magnesium Ferritin Total Bilirubin AST ALT Alkaline Phosphatase Lactate Dehydrogenase Troponin I High Sens C-Reactive Protein Total Protein Albumin Procalcitonin Ethyl Alcohol < 10 COVID-19 ([facility]) COVID-19 Clin Com 08/25/21 08/25/21 08/25/21 12:47 12:47 12:47 WBC RBC Hgb Hct MCV MCH MCHC RDW Plt Count MPV Immature Gran % (Auto) Neut % (Auto) Lymph % (Auto) [place] % (Auto) Eos % (Auto) Baso % (Auto) Lymph # (Auto) [place] # (Auto) Eos # (Auto) Baso # (Auto) Abs Immat Gran (auto) Absolute Neuts (auto) Absolute Nucleated RBC Nucleated RBC % (auto) Smear Tech's Comments PT 12.1 INR 1.1 D-Dimer High Sensitivty < 150 O2 Saturation ABG pH at Pt Temp ABG pH (Temp Correct) ABG pCO2 at Pt Temp ABG pCO2 (Temp Corrct ABG pO2 at Pt Temp ABG pO2 (Temp Correct ABG HCO3 ABG Base Excess (Actual) VBG pH VBG pCO2 VBG pO2 VBG HCO3 VBG O2 Saturation VBG Base Excess Sodium 141 Potassium 3.5 D Chloride 108 Carbon Dioxide 20 L Anion Gap 17 BUN 10 Creatinine 1.18 Estim Creat Clear Calc TNP Estimated GFR > 60 POC Glucose Random Glucose 257 H D Lactic Acid 6.2 H* Lactic Acid F/U @ 2Hr Calcium 9.1 Magnesium 2.5 Ferritin 239 Total Bilirubin 0.4 AST 16 ALT 24 Alkaline Phosphatase 43 Lactate Dehydrogenase 238 Troponin I High Sens C-Reactive Protein 0.42 Total Protein 7.1 Albumin 4.1 Procalcitonin Ethyl Alcohol COVID-19 ([facility]) COVID-19 Clin Com 08/25/21 08/25/21 08/25/21 12:47 12:47 12:48 WBC RBC Hgb Hct MCV MCH MCHC RDW Plt Count MPV Immature Gran % (Auto) Neut % (Auto) Lymph % (Auto) [place] % (Auto) Eos % (Auto) Baso % (Auto) Lymph # (Auto) [place] # (Auto) Eos # (Auto) Baso # (Auto) Abs Immat Gran (auto) Absolute Neuts (auto) Absolute Nucleated RBC Nucleated RBC % (auto) Smear Tech's Comments PT INR D-Dimer High Sensitivty O2 Saturation ABG pH at Pt Temp ABG pH (Temp Correct) ABG pCO2 at Pt Temp ABG pCO2 (Temp Corrct ABG pO2 at Pt Temp ABG pO2 (Temp Correct ABG HCO3 ABG Base Excess (Actual) VBG pH VBG pCO2 VBG pO2 VBG HCO3 VBG O2 Saturation VBG Base Excess Sodium Potassium Chloride Carbon Dioxide Anion Gap BUN Creatinine Estim Creat Clear Calc Estimated GFR POC Glucose Random Glucose Lactic Acid Lactic Acid F/U @ 2Hr Calcium Magnesium Ferritin Total Bilirubin AST ALT Alkaline Phosphatase Lactate Dehydrogenase Troponin I High Sens < 3.5 C-Reactive Protein Total Protein Albumin Procalcitonin < 0.02 Ethyl Alcohol COVID-19 ([facility]) Negative COVID-19 Clin Com See Note 08/25/21 08/25/21 08/25/21 12:57 13:39 15:40 WBC RBC Hgb Hct MCV MCH MCHC RDW Plt Count MPV Immature Gran % (Auto) Neut % (Auto) Lymph % (Auto) [place] % (Auto) Eos % (Auto) Baso % (Auto) Lymph # (Auto) [place] # (Auto) Eos # (Auto) Baso # (Auto) Abs Immat Gran (auto) Absolute Neuts (auto) Absolute Nucleated RBC Nucleated RBC % (auto) Smear Tech's Comments PT INR D-Dimer High Sensitivty O2 Saturation 95.0 ABG pH at Pt Temp 7.28 L ABG pH (Temp Correct) 7.29 L ABG pCO2 at Pt Temp 49 H ABG pCO2 (Temp Corrct 48 H ABG pO2 at Pt Temp 94 ABG pO2 (Temp Correct 91 ABG HCO3 23 ABG Base Excess (Actual) -3.7 VBG pH 7.30 L VBG pCO2 37 VBG pO2 105 VBG HCO3 18 L VBG O2 Saturation 98.0 VBG Base Excess -6.8 Sodium Potassium Chloride Carbon Dioxide Anion Gap BUN Creatinine Estim Creat Clear Calc Estimated GFR POC Glucose Random Glucose Lactic Acid Lactic Acid F/U @ 2Hr 0.9 Calcium Magnesium Ferritin Total Bilirubin AST ALT Alkaline Phosphatase Lactate Dehydrogenase Troponin I High Sens C-Reactive Protein Total Protein Albumin Procalcitonin Ethyl Alcohol COVID-19 ([facility]) COVID-19 Clin Com 08/26/21 10:24 WBC 15.5 H RBC 4.36 L Hgb 12.8 L Hct 40.1 L MCV 92.0 MCH 29.4 MCHC 31.9 RDW 12.8 Plt Count 265 MPV 10.0 Immature Gran % (Auto) Neut % (Auto) Lymph % (Auto) [place] % (Auto) Eos % (Auto) Baso % (Auto) Lymph # (Auto) [place] # (Auto) Eos # (Auto) Baso # (Auto) Abs Immat Gran (auto) Absolute Neuts (auto) Absolute Nucleated RBC 0.000 Nucleated RBC % (auto) 0.0 Smear Tech's Comments PT INR D-Dimer High Sensitivty O2 Saturation ABG pH at Pt Temp ABG pH (Temp Correct) ABG pCO2 at Pt Temp ABG pCO2 (Temp Corrct ABG pO2 at Pt Temp ABG pO2 (Temp Correct ABG HCO3 ABG Base Excess (Actual) VBG pH VBG pCO2 VBG pO2 VBG HCO3 VBG O2 Saturation VBG Base Excess Sodium Potassium Chloride Carbon Dioxide Anion Gap BUN Creatinine Estim Creat Clear Calc Estimated GFR POC Glucose Random Glucose Lactic Acid Lactic Acid F/U @ 2Hr Calcium Magnesium Ferritin Total Bilirubin AST ALT Alkaline Phosphatase Lactate Dehydrogenase Troponin I High Sens C-Reactive Protein Total Protein Albumin Procalcitonin Ethyl Alcohol COVID-19 ([facility]) COVID-19 Clin Com Imaging Radiology Impressions: ITS Impressions Chest X-Ray 08/25/21 13:45 IMPRESSION: Platelike atelectasis in the lingula. Mental Status Exam Mental Status Exam Patient Appearance: Appropriate Patient Orientation: Person, Place, Time and Situation Level of Consciousness: Awake and Appropriate Patient Behavior: Appropriate and Cooperative Mood Description: Calm Affect Description: Calm Thought Process: Goal Oriented Thought Content: positive for Goal Oriented Judgement: Fair Medications Medications Current Medications Acetaminophen (Acetaminophen 325 Mg Tablet) 650 mg PO Q6H PRN PRN Reason: Pain, Mild (Pain Scale 1-3) Albuterol Sulfate (Albuterol Sulfate (0.083%) 2.5 Mg/3 Ml Vial.Neb) 2.5 mg INHALE Q2H PRN PRN Reason: shortness of breath/wheeze Albuterol/Ipratropium (Albuterol/Iprat 2.5/0.5mg 3 Ml Ampul.Neb) 3 ml INHALE RQ6H WHILE AWAKE [facility] Last Admin: 08/26/21 08:03 Dose: 3 ml Documented by: Aripiprazole (Aripiprazole 10 Mg Tablet) 10 mg PO DAILY [facility] Last Admin: 08/26/21 09:56 Dose: 10 mg Documented by: Buspirone HCl (Buspirone Hcl 10 Mg Tablet) 10 mg PO TID [facility] Last Admin: 08/26/21 09:56 Dose: 10 mg Documented by: Cyanocobalamin (Cyanocobalamin (Vitamin B-12) 1,000 Mcg Tablet) 1,000 mcg PO DAILY [facility] Last Admin: 08/26/21 09:55 Dose: 1,000 mcg Documented by: Dexamethasone Sodium Phosphate (Dexamethasone Sod Phosphate 4 Mg/Ml Vial) 6 mg IVPUSH DAILY [facility] Last Admin: 08/26/21 10:04 Dose: 6 mg Documented by: Enoxaparin Sodium (Enoxaparin Sodium 40 Mg/0.4 Ml Syringe) 40 mg SUBCUT Q24H [facility] Last Admin: 08/25/21 18:06 Dose: 40 mg Documented by: Fenofibrate (Fenofibrate 160 Mg Tablet) 160 mg PO DAILY [facility] Folic Acid (Folic Acid 1 Mg Tablet) 1 mg PO DAILY [facility] Last Admin: 08/26/21 09:55 Dose: 1 mg Documented by: Hydroxyzine HCl (Hydroxyzine Hcl 25 Mg Tablet) 25 mg PO BID PRN PRN Reason: Anxiety Lactated Ringer's (Lr) 1,000 mls @ 150 mls/hr IVCONT .Q6H40M [facility] Last Admin: 08/26/21 04:49 Dose: 150 mls/hr Documented by: Lisinopril (Lisinopril 5 Mg Tablet) 5 mg PO DAILY [facility]; Protocol Last Admin: 08/26/21 09:55 Dose: 5 mg Documented by: Melatonin (Melatonin 3 Mg Tablet) 6 mg PO BEDTIME PRN PRN Reason: Insomnia Naloxone HCl (Naloxone Hcl 2 Mg/2 Ml Syringe) 2 mg IVPUSH ONCE PRN PRN Reason: opioid overdose Last Admin: 08/25/21 18:41 Dose: 2 mg Documented by: Non-Formulary Medication (Umeclidinium-Vilanterol [Anoro Ellipta]) 1 each PO DAILY [facility] Omeprazole (Omeprazole 20 Mg Capsule.) 20 mg PO DAILY@0630 [facility] Ondansetron HCl (Ondansetron Hcl 4 Mg/2 Ml Vial) 4 mg IVPUSH Q8H PRN PRN Reason: Nausea and Vomiting Oxcarbazepine (Oxcarbazepine 300 Mg Tablet) 900 mg PO BID [facility] Last Admin: 08/26/21 09:56 Dose: 900 mg Documented by: Prazosin HCl (Prazosin Hcl 1 Mg Capsule) 2 mg PO BID [facility]; Protocol Last Admin: 08/26/21 09:56 Dose: 2 mg Documented by: Sodium Chloride (0.9 % Sodium Chloride Flush 3 Ml Syringe) 3 ml IVFLUSH QSHIFT [facility] Last Admin: 08/26/21 10:04 Dose: 3 ml Documented by: Vitamin D (Cholecalciferol (Vitamin D3) 25 Mcg Tablet) 25 mcg PO DAILY [facility] Last Admin: 08/26/21 09:55 Dose: 25 mcg Documented by: Zolpidem Tartrate (Zolpidem Tartrate 5 Mg Tablet) 5 mg PO BEDTIME PRN PRN Reason: Insomnia Allergies Allergies Allergy/AdvReac Type Severity Reaction Status Date / Time bee stings Allergy Severe Anaphylaxis Verified 08/20/21 10:47 hydromorphone [From DILAUDID] AdvReac Severe VIOLENTLY Verified 08/20/21 10:47 ILL NEEDS TO EAT FIRST Assessment & Plan Assessment & Plan (1) Opioid overdose: Status: Acute Code(s): T40.2X1A - Poisoning by other opioids, accidental (unintentional), initial encounter Assessment and Plan: patient with several supports in place, at this time declining any referrals harm reduction discussion --educated patient regarding high amounts of fentanyl in drug supply including cocaine. take home narcan no follow up needed I spent 25 minutes with the patient and/or on the patient floor today, greater than?50% of which was spent counseling/coordinating care. [facility] Past Medical History Medical History COPD (chronic obstructive pulmonary disease) Essential hypertension GERD (gastroesophageal reflux disease) Gout History of pneumonia Lumbar degenerative disc disease Lymphopenia Mixed hyperlipidemia Pernicious anemia Positive colorectal cancer screening using Cologuard test Family History Family History Father Lung cancer Mother Chronic mental illness Alzheimer disease Maternal Grandmother Bone cancer Hypertension Paternal Grandmother Brain cancer Maternal Uncle Cancer Family/Other Chronic mental illness Substance use disorder Surgical History Surgical History History of arthroscopy of left knee History of esophagogastroduodenoscopy (EGD) History of shoulder surgery History of surgery History of total left knee replacement Hx of colonoscopy Status post surgical removal of malignant neoplasm of skin Social History Social History Household Members: None and Other Household Members Other:: 2 room mates Housing: House Do you presently have visiting nurse or other home services: No Alcohol intake: former Patient Tobacco Use Status: Former Tobacco user Tobacco use type: Cigarette Cigarette Packs Per Day: 1 e-Cigarette/Vaping Use: Never Used Second Hand Smoke Exposure: No Advance Directives: No Advance Directives Information Provided: No service: No Current occupational status: unemployed and disabled
[2021-08-26 10:48] LABS: Alanine Aminotransferase 26 U/L (0-40); Albumin Level 4.3 g/dL (3.5-5.0); Alkaline Phosphatase 39 U/L (39-117); Anion Gap 14 (12-20); Aspartate Amino Transferase 14 U/L (5-37); Bilirubin Total 0.3 mg/dL (0.0-1.0); Blood Urea Nitrogen 16 mg/dL (9-16); Calcium 9.3 mg/dL (8.4-10.2); Carbon Dioxide 25 mmol/L (22-29); Chloride 106 mmol/L (96-108); Creatinine Clr Calc Pharmacy 109.2; Estimated Glomerular Filt Rate > 60; Glucose Random 129 mg/dL (60-115); Potassium 4.7 mmol/L (3.3-5.1); Sodium 140 mmol/L (135-145); Total Protein 7.2 g/dL (6.5-8.0)
[2021-08-26 11:05] LABS: HBc Num1 0.16 S/CO (0.00-0.79); HBsAGNum1 0.26 S/CO (0.00-0.99); Hepatitis B Core Antibody Nonreactive (Nonreactive); Hepatitis B Surface Antigen Negative (Negative); ~HepC Num1 0.53 S/CO (0.00-0.79); ~Hepatitis C Antibody Nonreactive (Nonreactive)
[2021-08-26 11:07] LABS: HBS Num1 0.99 mIU/mL (0-7.99); HIV AB/AG Nonreactive (Nonreactive); HIV Num 1 0.32 S/CO (0.00-0.99); ~Hepatitis B Surface Antibody NONREACTIVE (Nonreactive)
[2021-08-26] MEDS: Fenofibrate 160 MG TABLET PO (12:09)
--- NOTE | 2021-08-26 13:18 | PM.DS ---
DS: Providers Provider Date of Service: 08/26/21 Date of admission: 08/25/21 15:59 Date of discharge: 08/26/21 Primary care physician: Yulissa Keyes MD Consults: 08/25/21 15:39 Addiction Medicine Routine Consulting Provider: Ngoc Marcelo Reason for consultation: opioid overdose Consult to Care Team Routine Comment: Reason for consultation: opioid overdose DS: Diagnosis Discharge Diagnosis (1) COVID-19: Status: Acute (2) Opioid overdose: Status: Acute (3) Hypoxemia: Status: Acute (4) Lactic acid acidosis: Status: Acute (5) Cocaine abuse: Status: Acute DS: Summary Hospital Course Hospital Course: From my admission H+P, 08/25/21: 51yo M with COPD, HTN, gout, pernicious anemia, and GERD.? He was recently seen here in the [facility] ED on 08/20/20 after falling on the ice and complaining of headache and neck pain as well as chest pain.? CT head and C-spine and CXR were negative; however, he was diagnosed with Covid-19 infection.? He was not hypoxic.? He was referred for outpatient monoclonal antibody infusion but it is unknown whether he received it or not. ? He was brought in today by his girlfriend and was pulled out of the car by EMS staff apneic and cyanotic.? He was given 4 mg of IM naloxone and then 2 mg of IV naloxone and woke up.? He required 2L oxygen to maintain SaO2 of greater than 91%.? He was observed for 2 hours.? Lactic acid was 6.1 and he was given IV fluids.? When I arrived to assess the pt, he was bradypneic and hypoxic with SaO2 83% with nasal trumpet in place and no gag reflex.? Subsequently, he was given another 2 mg of IV naloxone with normalization of breathing rate and oxygen saturation.? He started mumbling and reaching for his phone and recovered his gag.? But I'm unable to get much other history out of him so this history is per review of the EHR and discussion with the ER physician. ? No documented history of heroin or other opioid abuse.? Urine toxicology is pending.? Covid-19 BRANDON is now negative. The patient was admitted to the hospitalist service. He required 1 more dose of naloxone 2 mg IV. His mental and respiratory status normalized and he was taken off of oxygen. He denies any cough or dyspnea. He admitted to snorting cocaine after years of sobriety, due to stress from his fiancee's recent miscarriage of twins. He denied deliberate use of opioids but it is likely the cocaine was laced with fentanyl or another opioid. He expressed regret at his cocaine abuse and was committed to remaining drug-free. As for Covid-19, the hypoxia was attributed to the opioid overdose rather than to infection; he was weaned off oxygen and inflammatory markers were reassuring. I therefore do not think he needs to be treated with dexamethasone. He was discharged home with naloxone prescription. Time Spent with Patient Time attestation: Total time spent providing and/or coordinating discharge services: Discharge coordination time: Greater than 30 minutes Quality: Stroke Does the patient have a stroke diagnosis?: No Physical Exam Vital Signs: Vital Signs: Last Vital Signs Temp 97.7 F 08/25/21 13:42 Pulse 75 08/26/21 10:03 Resp 20 08/26/21 08:04 BP 132/59 L 08/26/21 10:03 Pulse Ox 95 08/26/21 10:03 Oxygen Flow Rate 2 08/25/21 12:50 BMI result Body Mass Index 35.9 Gen: in no acute distress HEENT: sclera anicteric, moist mucus membranes Neck: supple Lungs: clear to auscultation bilaterally Heart: regular rate and rhythm, no murmurs Abd: soft, non-tender, non-distended Ext: no edema Skin: warm/well-perfused Neuro: alert and oriented x3, no focal findings Psych: appropriate affect DS: Data Data Completed and Pending Completed studies during hospitalization [Text1]: Laboratory Results WBC 15.5 X10*3/uL (4.8-10.8) H 08/26/21 10:24 RBC 4.36 X10*6/uL (4.60-5.80) L 08/26/21 10:24 Hgb 12.8 g/dl (14.0-18.0) L 08/26/21 10:24 Hct 40.1 % (42.0-52.0) L 08/26/21 10:24 MCV 92.0 fL (80.0-98.0) 08/26/21 10:24 MCH 29.4 pg (27.0-33.0) 08/26/21 10:24 MCHC 31.9 g/dl (31.0-36.0) 08/26/21 10:24 RDW 12.8 % (11.0-16.0) 08/26/21 10:24 Plt Count 265 X10*3/uL (160-400) 08/26/21 10:24 MPV 10.0 fL (9.4-12.4) 08/26/21 10:24 Immature Gran % (Auto) 3.6 % (0.0-0.4) H 08/25/21 12:46 Neut % (Auto) 52.8 % (45-73) 08/25/21 12:46 Lymph % (Auto) 35.2 % (20-40) 08/25/21 12:46 Pondera % (Auto) 6.6 % (2-11) 08/25/21 12:46 Eos % (Auto) 1.4 % (0-4) 08/25/21 12:46 Baso % (Auto) 0.4 % (0-2) 08/25/21 12:46 Lymph # (Auto) 6.2 X10*3/uL (1.2-4.9) H 08/25/21 12:46 [place] # (Auto) 1.2 X10*3/uL (0.1-1.2) 08/25/21 12:46 Eos # (Auto) 0.2 X10*3/uL (0.0-0.4) 08/25/21 12:46 Baso # (Auto) 0.1 X10*3/uL (0.0-0.2) 08/25/21 12:46 Abs Immat Gran (auto) 0.64 X10*3/uL (0.00-0.03) H 08/25/21 12:46 Absolute Neuts (auto) 9.3 x10*3/uL (2.0-8.3) H 08/25/21 12:46 Absolute Nucleated RBC 0.000 X10*3/uL (0.0-0.012) 08/26/21 10:24 Nucleated RBC % (auto) 0.0 /100WBC (0.0-0.2) 08/26/21 10:24 Smear Tech's Comments VERIFIED 08/25/21 12:46 PT 12.1 SEC (9.9-13.0) 08/25/21 12:47 INR 1.1 (0.9-1.1) 08/25/21 12:47 D-Dimer High Sensitivty < 150 NG/ML 08/25/21 12:47 O2 Saturation 95.0 % 08/25/21 13:39 ABG pH at Pt Temp 7.28 (7.35-7.45) L 08/25/21 13:39 ABG pH (Temp Correct) 7.29 (7.35-7.45) L 08/25/21 13:39 ABG pCO2 at Pt Temp 49 mmHg (32-45) H 08/25/21 13:39 ABG pCO2 (Temp Corrct 48 mmHg (32-45) H 08/25/21 13:39 ABG pO2 at Pt Temp 94 mmHg (83-108) 08/25/21 13:39 ABG pO2 (Temp Correct 91 (83-108) 08/25/21 13:39 ABG HCO3 23 mmol/L (22-26) 08/25/21 13:39 ABG Base Excess (Actual) -3.7 mmol/L 08/25/21 13:39 VBG pH 7.30 (7.32-7.43) L 08/25/21 12:57 VBG pCO2 37 mmHg 08/25/21 12:57 VBG pO2 105 mmHg 08/25/21 12:57 VBG HCO3 18 mmol/L (22-26) L 08/25/21 12:57 VBG O2 Saturation 98.0 % 08/25/21 12:57 VBG Base Excess -6.8 mmol/L 08/25/21 12:57 Sodium 140 mmol/L (135-145) 08/26/21 10:24 Potassium 4.7 mmol/L (3.3-5.1) D 08/26/21 10:24 Chloride 106 mmol/L (96-108) 08/26/21 10:24 Carbon Dioxide 25 mmol/L (22-29) 08/26/21 10:24 Anion Gap 14 (12-20) 08/26/21 10:24 BUN 16 mg/dL (9-16) D 08/26/21 10:24 Creatinine 1.12 mg/dL (0.5-1.4) 08/26/21 10:24 Estim Creat Clear Calc 109.2 08/26/21 10:24 Estimated GFR > 60 08/26/21 10:24 POC Glucose 228 mg/dL (60-115) H 08/25/21 12:38 Random Glucose 129 mg/dL (60-115) H D 08/26/21 10:24 Lactic Acid 6.2 mmol/L (0.5-2.0) H* 08/25/21 12:47 Lactic Acid F/U @ 2Hr 0.9 mmol/L (0.5-2.0) 08/25/21 15:40 Calcium 9.3 mg/dL (8.4-10.2) 08/26/21 10:24 Magnesium 2.5 mg/dL (1.6-2.6) 08/25/21 12:47 Ferritin 239 ng/mL (20-250) 08/25/21 12:47 Total Bilirubin 0.3 mg/dL (0.0-1.0) 08/26/21 10:24 AST 14 U/L (5-37) 08/26/21 10:24 ALT 26 U/L (0-40) 08/26/21 10:24 Alkaline Phosphatase 39 U/L (39-117) 08/26/21 10:24 Lactate Dehydrogenase 238 U/L (118-273) 08/25/21 12:47 Troponin I High Sens < 3.5 ng/L (<3.5-35.0) 08/25/21 12:47 C-Reactive Protein 0.42 mg/dL (< or = 0.50) 08/25/21 12:47 Total Protein 7.2 g/dL (6.5-8.0) 08/26/21 10:24 Albumin 4.3 g/dL (3.5-5.0) 08/26/21 10:24 Procalcitonin < 0.02 ng/mL 08/25/21 12:47 Ethyl Alcohol < 10 mg/dL 08/25/21 12:46 COVID-19 (BRANDON) Negative (Negative) 08/25/21 12:48 COVID-19 Clin Com See Note 08/25/21 12:48 Hep Bs Antigen Negative (Negative) 08/26/21 10:24 Hep Bs Antibody NONREACTIVE (Nonreactive) 08/26/21 10:24 Hep B Core Total Ab Nonreactive (Nonreactive) 08/26/21 10:24 Hepatitis C Ab (EIA) Nonreactive (Nonreactive) 08/26/21 10:24 HIV 1&2 Ab/P24 Ag 4thGn Nonreactive (Nonreactive) 08/26/21 10:24 Impressions Chest X-Ray 08/25/21 13:45 IMPRESSION: Platelike atelectasis in the lingula. Discharge Plan Discharge Patient Disposition: Home, Self-Care Discharge Diagnosis: opioid overdose, cocaine abuse, Covid-19 infection Referrals: Yulissa Dempsey MD [Primary Care Provider] - 1 Week Discharge Medications: New naloxone [Narcan] 4 mg/actuation spray,non-aerosol 4 mg intranasal Q2M PRN (Reason: opioid overdose) Qty: 2 RF: 0 Continued fenofibrate 160 mg tablet 160 mg PO DAILY 90 Days Qty: 90 RF: 1 umeclidinium-vilanterol [Anoro Ellipta] 62.5-25 mcg/actuation blister with device 1 ea PO DAILY Qty: 60 RF: 8 folic acid 1 mg tablet 1 mg PO DAILY Qty: 30 RF: 11 albuterol sulfate 2.5 mg /3 mL (0.083 %) solution for nebulization 2.5 mg inhalation TID Qty: 225 RF: 3 lisinopril 5 mg tablet 5 mg PO DAILY Qty: 90 RF: 1 carisoprodol 350 mg tablet 350 mg PO TID PRN (Reason: Muscle Pain) 30 Days Qty: 90 RF: 0 oxcarbazepine 300 mg tablet 1 tab PO BID RF: 0 buspirone 10 mg tablet 1 tab PO TID RF: 0 clonazepam 2 mg tablet 1 tab PO BID RF: 0 zolpidem 10 mg tablet 1 tab PO BEDTIME PRN (Reason: Insomnia) RF: 0 prazosin 2 mg capsule 1 cap PO BID RF: 0 hydroxyzine pamoate 25 mg capsule 1 cap PO BID PRN (Reason: Anxiety) RF: 0 aripiprazole 10 mg tablet 1 tab PO QAM RF: 0 albuterol sulfate [ProAir HFA] 90 mcg/actuation HFA aerosol inhaler 1 inh inhalation QID PRN (Reason: shortness of breath or wheezing) Qty: 6.7 RF: 0 pantoprazole 40 mg tablet,delayed release (DR/EC) 40 mg PO DAILY RF: 0 cyanocobalamin (vitamin B-12) 1,000 mcg tablet extended release 1,000 mcg PO DAILY 90 Days Qty: 90 RF: 3 cholecalciferol (vitamin D3) 25 mcg (1,000 unit) capsule 25 mcg PO DAILY 90 Days Qty: 90 RF: 1 ibuprofen 800 mg tablet 800 mg PO Q8H 30 Days Qty: 90 RF: 3 oxcarbazepine 600 mg tablet 600 mg PO BID RF: 0 melatonin 5 mg capsule 5 mg PO BEDTIME PRN (Reason: Insomnia) RF: 0 Discharge Orders: Discharge Order (Routine); Ordered 08/26/21 Ordered By: Paola David Diet: advance to usual diet Activity on Discharge: As tolerated Stand Alone Forms: Patient Portal Discharge page Care Plan Goals: avoid all substances of abuse Health Concerns: opioid overdose, cocaine abuse, respiratory failure due to overdose, Covid-19 infection Plan of Treatment: avoid all substances of abuse Narcan prescription isolation as per CDC guidelines return to hospital if short of breath Assessment: see Discharge Summary Patient Instructions: Cocaine Abuse (DC), Narcotic Safety (DC), COVID-19 (Coronavirus Disease 2019) (DC)
== END 2021-08-26 13:42 | disposition home or self-care (01) | DRG 812 ==
LOC: HO.ED 13:41 → HO.EDOVER 16:16
PROVIDERS: Physician Assistant Medical; Admitting Provider Family Medicine; Emergency Provider Emergency Medicine; PCP Internal Medicine; Visit Provider Family Medicine
DX: T40.2X1A Poisoning by other opioids, accidental (unintentional), initial encounter (principal); J96.01 Acute respiratory failure with hypoxia; G92.8 Other toxic encephalopathy; K21.9 Gastro-esophageal reflux disease without esophagitis; Y92.9 Unspecified place or not applicable; E87.2 Acidosis; M10.9 Gout, unspecified; I10 Essential (primary) hypertension; D51.0 Vitamin B12 deficiency anemia due to intrinsic factor deficiency; Z20.822 Contact with and (suspected) exposure to COVID-19; Z95.0 Presence of cardiac pacemaker; Z79.1 Long term (current) use of non-steroidal anti-inflammatories (NSAID); Z87.891 Personal history of nicotine dependence; Z79.899 Other long term (current) drug therapy
CPT/HCPCS: 36415; 71045; 80053; 82077; 82728; 82803; 82947; 83605; 83615; 83735; 84145; 84484; 85025; 85027; 85379; 85610; 86140; 86704; 86706; 86803; 87040; 87340; 87389; 87635; 93005; 94640; 99285; J1100; J1650

== ENCOUNTER 2021-12-31 10:30 | Outpatient (REF) | payer OTHER, SELFPAY ==
--- NOTE | ~2021-12-31 | XR_ITS ---
EXAMINATION: XR HAND, RIGHT CLINICAL INFORMATION: Pain and swelling COMPARISON: None TECHNIQUE: PA, lateral, and oblique views of the right hand. FINDINGS: No fracture or dislocation is seen. 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 There are cystic changes seen in the distal ulna. There is borderline ulnar minus variance. Joint spaces are otherwise normal. Soft tissues are normal. XR/XR hand RT 2V IMPRESSION: Degenerative change at the distal radial ulnar joint, small cysts in the distal ulna Borderline ulnar minus variance.
--- NOTE | ~2021-12-31 | XR_ITS ---
EXAMINATION: XR ELBOW, RIGHT CLINICAL INFORMATION: Pain COMPARISON: None TECHNIQUE: AP, lateral, and oblique views of the right elbow. FINDINGS: Bone alignment is normal. No fracture or dislocation is seen. There is mild arthritis of the humeral ulnar joint. There is no joint effusion. There is an osteophyte at the triceps tendon insertion to the olecranon. There is soft tissue calcification in the medial elbow. XR/XR elbow RT 2V IMPRESSION: Mild degenerative changes.
[2021-12-31 11:49] LABS: Hematocrit 42.3 % (42.0-52.0); Hemoglobin 13.8 g/dl (14.0-18.0); Mean Corpuscular HGB Conc 32.6 g/dl (31.0-36.0); Mean Corpuscular Hemoglobin 29.4 pg (27.0-33.0); Mean Corpuscular Volume 90.2 fL (80.0-98.0); Mean Platelet Volume 10.6 fL (9.4-12.4); Platelet Count 255 X10*3/uL (160-400); Red Blood Count 4.69 X10*6/uL (4.60-5.80); Red Cell Distribution Width 13.3 % (11.0-16.0); White Blood Count 8.3 X10*3/uL (4.8-10.8)
[2021-12-31 12:16] LABS: Alanine Aminotransferase 19 U/L (0-40); Albumin Level 4.2 g/dL (3.5-5.0); Alkaline Phosphatase 44 U/L (39-117); Anion Gap 12 (12-20); Aspartate Amino Transferase 13 U/L (5-37); Bilirubin Direct < 0.2 mg/dL (0.0-0.5); Bilirubin Total 0.3 mg/dL (0.0-1.0); Blood Urea Nitrogen 10 mg/dL (9-16); Calcium 9.4 mg/dL (8.4-10.2); Carbon Dioxide 23 mmol/L (22-29); Chloride 110 mmol/L (96-108); Estimated Glomerular Filt Rate > 60; Glucose Random 111 mg/dL (60-115); Potassium 4.7 mmol/L (3.3-5.1); Sodium 140 mmol/L (135-145); Total Protein 6.9 g/dL (6.5-8.0)
== END 2021-12-31 10:31 | disposition home or self-care (01) ==
LOC: HO.XRAY 10:30
PROVIDERS: PCP Internal Medicine; Visit Provider Physician Assistant
DX: R55 Syncope and collapse (principal); M77.8 Other enthesopathies, not elsewhere classified; M79.89 Other specified soft tissue disorders
CPT/HCPCS: 73070; 73120; 80048; 80076; 85027

== ENCOUNTER → 2022-01-28 12:42 | Outpatient (BNVA) | payer OTHER, SELFPAY | PROVIDERS: PCP Internal Medicine; Visit Provider Physician Assistant | DX: G56.21 Lesion of ulnar nerve, right upper limb (principal); M75.21 Bicipital tendinitis, right shoulder | CPT/HCPCS: 99212 ==

== ENCOUNTER 2022-07-27 11:53 | Emergency (ER) | payer OTHER, SELFPAY ==
--- NOTE | ~2022-07-27 | XR_ITS ---
EXAMINATION: XR CHEST CLINICAL INFORMATION: Chest pain COMPARISON: Chest x-ray 08/25/2021 TECHNIQUE: Frontal portable view of the chest was obtained. 2:07 PM FINDINGS: No significant abnormality is noted involving the heart, lungs, mediastinum, bony thorax or soft tissues. XR/XR chest 1V IMPRESSION: Unremarkable examination.
--- NOTE | 2022-07-27 11:55 | ECG_ITS ---
Test Reason : chest pain Blood Pressure : / mmHG Vent. Rate : 085 BPM Atrial Rate : 085 BPM P-R Int : 126 ms QRS Dur : 084 ms QT Int : 360 ms P-R-T Axes : 034 -12 065 degrees QTc Int : 428 ms Normal sinus rhythm Normal ECG When compared with ECG of 25-AUG-2021 12:41, ST no longer depressed in Lateral leads T wave inversion no longer evident in Lateral leads Referred By: Letha Leonardo Electronically Signed By:STANFORD ERICKSON
--- NOTE | 2022-07-27 12:13 | ED.CHESTPAIN ---
HPI - Chest Pain General Chief Complaint: Chest Pain <Letha Leonardo NP - Last Filed: 07/27/22 12:17> Stated Complaint: Chest pain rad down arm <Letha Leonardo NP - Last Filed: 07/27/22 12:17> Time Seen by Provider: 07/27/22 13:34 <Letha Leonardo NP - Last Filed: 07/27/22 12:17> Source: patient <Jeff Heath MD - Last Filed: 07/27/22 15:39> Mode of arrival: ambulatory <Jeff Heath MD - Last Filed: 07/27/22 15:39> Limitations: no limitations <Jeff Heath MD - Last Filed: 07/27/22 15:39> History of Present Illness HPI narrative: 52-year-old male with history of hypertension, COPD, actively smoking (cutting down on number of cigarettes per day) patient was blowing snow this morning at 10:00 patient started to have little discomfort on the left side of his chest and his right arm patient went upstairs for wrist pain increased with wrist then start to ease up, when patient was severe was 5/10 now patient is 0/10, pain was associated with shortness of breath, pain was in a worse with exertion however got worse after he rested then started to ease up. No relieving factor no aggravating factor. Patient is known COPD and use inhaler for. No recent travel, no lower extremity swelling or tenderness. History of cocaine abuse patient confirmed there is no recent use of cocaine And patient has been sober for many months now. <Jeff Heath MD - Last Filed: 07/27/22 15:39> Related Data Home Medications: Home Medications Medication Instructions Recorded Confirmed aripiprazole 10 mg tablet 1 tab PO QAM 08/25/20 12/31/21 buspirone 10 mg tablet 1 tab PO TID 08/25/20 12/31/21 clonazepam 2 mg tablet 1 tab PO BID 08/25/20 12/31/21 hydroxyzine pamoate 25 mg capsule 1 cap PO BID PRN Anxiety 08/25/20 12/31/21 oxcarbazepine 300 mg tablet 1 tab PO BID 08/25/20 12/31/21 prazosin 2 mg capsule 1 cap PO BID 08/25/20 12/31/21 zolpidem 10 mg tablet 1 tab PO BEDTIME PRN Insomnia 08/25/20 12/31/21 oxcarbazepine 600 mg tablet 600 mg PO BID 09/10/20 12/31/21 melatonin 5 mg capsule 5 mg PO BEDTIME PRN Insomnia 06/03/21 12/31/21 Previous Rx's Medication Instructions Recorded fenofibrate 160 mg tablet 160 mg PO DAILY 90 days #90 tabs 02/18/21 cholecalciferol (vitamin D3) 25 25 mcg PO DAILY 90 days #90 caps 05/26/21 mcg (1,000 unit) capsule cyanocobalamin (vitamin B-12) 1,000 mcg PO DAILY 90 days #90 tabs 05/26/21 1,000 mcg tablet,extended release naloxone 4 mg/actuation nasal 4 mg intranasal Q2M PRN opioid 08/26/21 spray (Narcan) overdose #2 ea albuterol sulfate 90 mcg/actuation 1 inh inhalation QID PRN shortness 12/11/21 aerosol inhaler (ProAir HFA) of breath or wheezing #6.7 grams ibuprofen 800 mg tablet 800 mg PO Q8H 30 days #90 tabs 12/31/21 prednisone 10 mg tablet 10 mg PO DAILY 4 days #4 tabs 12/31/21 umeclidinium 62.5 mcg-vilanterol 1 ea PO DAILY #60 caps 02/18/22 25 mcg/actuation powdr for inhalation (Anoro Ellipta) albuterol sulfate 2.5 mg/3 mL 2.5 mg (3 mL) inhalation TID #225 05/05/22 (0.083 %) solution for nebulization mL folic acid 1 mg tablet 1 mg PO DAILY #30 tabs 05/15/22 indomethacin 50 mg capsule 50 mg PO BID 10 days #20 caps 05/15/22 lisinopril 30 mg tablet 30 mg PO DAILY 90 days #90 tabs 06/23/22 Grab bar #1 ea 06/24/22 Shower Chair #1 ea 06/24/22 miscellaneous medical supply #1 ea 06/24/22 (Blood Pressure Cuff) nicotine 21 mg/24 hr daily 1 patch transdermal DAILY 28 days 06/24/22 transdermal patch #28 ea carisoprodol 350 mg tablet 350 mg PO TID PRN Muscle Pain 30 07/15/22 days #90 tabs pantoprazole 40 mg tablet,delayed 40 mg PO DAILY 90 days #90 tabs 07/24/22 release <Letha Leonardo NP - Last Filed: 07/27/22 12:17> Allergies/Adverse Reactions: Allergies Allergy/AdvReac Type Severity Reaction Status Date / Time bee stings Allergy Severe Anaphylaxis Verified 07/27/22 12:14 hydromorphone [From DILAUDID] AdvReac Severe VIOLENTLY Verified 07/27/22 12:14 ILL NEEDS TO EAT FIRST <Letha Leonardo NP - Last Filed: 07/27/22 12:17> Review of Systems Review of Systems: All other systems are reviewed and are negative Constitutional: Reports as per HPI and Reports no additional constitutional complaints Eyes: Reports as per HPI and Reports no additional eye complaints Reports system reviewed and no additional complaints, except as documented Cardiovascular: Reports as per HPI and Reports no additional cardiovascular complaints Respiratory: Reports as per HPI and Reports no additional respiratory complaints Gastrointestinal: Reports as per HPI and Reports no additional gastrointestinal complaints Genitourinary: Reports no additional female genitourinary complaints Musculoskeletal: Reports no additional musculoskeletal complaints Skin/Breast: Reports system reviewed and no additional complaints, except as docu Psychiatric: Reports no additional psychiatric complaints Endocrine: Reports no additional endocrine complaints Hematologic/Lymphatic: Reports no additional hematologic/lymphatic complaints Allergic/Immunologic: Reports no additional allergic/immunologic complaints Reports system reviewed and no additional complaints, except as documented and Reports Abnormal speech present <Jeff Heath MD - Last Filed: 07/27/22 15:39> FORMERLY [facility] Past Medical History Medical History: Medical History COPD (chronic obstructive pulmonary disease) COVID-19 Essential hypertension GERD (gastroesophageal reflux disease) Gout History of pneumonia Hypoxemia Lactic acid acidosis Lumbar degenerative disc disease Lymphopenia Mixed hyperlipidemia Opioid overdose Pernicious anemia Positive colorectal cancer screening using Cologuard test <Letha Leonardo NP - Last Filed: 07/27/22 12:17> Surgical History: Surgical History History of arthroscopy of left knee History of esophagogastroduodenoscopy (EGD) History of shoulder surgery History of surgery History of total left knee replacement Hx of colonoscopy Status post surgical removal of malignant neoplasm of skin <Letha Leonardo NP - Last Filed: 07/27/22 12:17> Family History Family History: Family History Father Lung cancer Mother Chronic mental illness Alzheimer disease Maternal Grandmother Bone cancer Hypertension Paternal Grandmother Brain cancer Maternal Uncle Cancer Family/Other Chronic mental illness Substance use disorder <Letha Leonardo NP - Last Filed: 07/27/22 12:17> Social History Social History: Social History Household Members: None and Other Household Members Other:: 2 room mates Housing: House Do you presently have visiting nurse or other home services: No Alcohol intake: former Patient Tobacco Use Status: Former Tobacco user Tobacco use type: Cigarette Cigarette Packs Per Day: 1 Smoked in Last 30 Days: Yes e-Cigarette/Vaping Use: Never Used Second Hand Smoke Exposure: No Advance Directives: No Advance Directives Information Provided: Yes service: No Current occupational status: unemployed and disabled Cognitive needs: No Hearing needs: No Vision needs: No <Letha Leonardo NP - Last Filed: 07/27/22 12:17> Physical Exam Vital Signs: Vital Signs: Last Vital Signs Temp 97.8 F 07/27/22 14:52 Pulse 79 07/27/22 14:52 Resp 18 07/27/22 14:52 BP 135/80 07/27/22 14:52 Pulse Ox 98 07/27/22 14:52 O2 Del Method 07/27/22 14:52 BMI result Body Mass Index 34.0 <Letha Leonardo NP - Last Filed: 07/27/22 12:17> Vital Signs: Last Vital Signs Temp 97.8 F 07/27/22 14:52 Pulse 79 07/27/22 14:52 Resp 18 07/27/22 14:52 BP 135/80 07/27/22 14:52 Pulse Ox 98 07/27/22 14:52 O2 Del Method 07/27/22 14:52 BMI result Body Mass Index 34.0 vital signs have been reviewed as appeared to be correct. Blood pressure normal. Heart rate normal. Respiration rate normal. Temperature normal. Oxygen saturation normal. <Jeff Heath MD - Last Filed: 07/27/22 15:39> Appearance: Alert. Oriented X3. No acute distress. Head: Normal external exam. Normocephalic. Atraumatic. No Cortes signs noted. No raccoon eyes noted Eyes: PERRLA. EOMI. Conjunctiva and sclera normal. Eyelids normal. ENT: TM's Normal. Pharynx normal. Uvula midline. Moist mucous membranes. No trismus noted. No drooling noted. No muffled voice noted. Neck: Normal inspection. Neck supple. FROM. No adenopathy. Thyroid Normal. No meningeal signs. No neck mass noted. CVS: Normal heart rate and rhythm. Heart sound normal. No murmurs noted. Pulses normal throughout. Respiratory: No respiratory distress. Painless inspiration. Breath sounds normal. No wheezes/rales/rhonchi noted. Chest nontender. No accessory muscle usage noted or decreased air movement noted. Abdomen: Soft and nontender. Bowel sounds normal in all 4 quadrants. No distention noted. No organomegaly noted. No visible injury noted. Back: No CVA tenderness. Full range of motion noted. Skin: Skin warm and dry. Normal skin color. Normal skin turgor. No rashes/lesions/lacerations noted. Extremities: No lower extremity edema. Extremities exhibit normal range of motion. Extremities nontender. Neuro: Oriented X 3. Cranial nerve exam: II-XII are grossly intact No motor deficit. No sensory deficit. Reflexes normal. <Jeff Heath MD - Last Filed: 07/27/22 15:39> Course Course Course Narrative: This is a rapid medical exam. Deferred additional HPI, ROS, PE to primary provider. 52 yo male with history of former cocaine use, asthma, HTN, HLD here with complaints of chest began with radiation to the right arm which began while snow-blowing at 10am. Symptoms overall remain but are better with rest. Denies current use of cocaine been a while. VSS. <Letha Leonardo NP - Last Filed: 07/27/22 12:17> Reevaluation(s) Reevaluation #1: 52-year-old male WITH HEART score of 3 unremarkable EKG/troponin x2 presented with atypical chest pain patient declined using cocaine however drug screening is positive for cocaine, patient's exam is unremarkable at this point with negative marker and unremarkable labs will discharge the patient follow-up with manufacturing technology analyst as an outpatient. <Jeff Heath MD - Last Filed: 07/27/22 15:39> Time: 16:00 <Jeff Heath MD - Last Filed: 07/27/22 15:39> Medical Decision Making Differential Diagnosis Differential Diagnoses: The differential diagnosis associated with the presentation includes <Jeff Heath MD - Last Filed: 07/27/22 15:39> COPD exacerbation, myofascial pain syndrome, ACS. <Jeff Heath MD - Last Filed: 07/27/22 15:39> Lab Data MDM Lab Attestation statement: I reviewed the patient's lab results. <Jeff Heath MD - Last Filed: 07/27/22 15:39> Result Diagrams: : 07/27/22 12:12 07/27/22 12:12 <Letha Leonardo NP - Last Filed: 07/27/22 12:17> Labs: Lab Results 07/27/22 07/27/22 07/27/22 Range/Units 12:12 12:12 12:12 WBC 9.4 (4.8-10.8) X10*3/uL RBC 4.33 L (4.60-5.80) X10*6/uL Hgb 13.1 L (14.0-18.0) g/dl Hct 39.5 L (42.0-52.0) % MCV 91.2 (80.0-98.0) fL MCH 30.3 (27.0-33.0) pg MCHC 33.2 (31.0-36.0) g/dl RDW 12.8 (11.0-16.0) % Plt Count 251 (160-400) X10*3/uL MPV 10.8 (9.4-12.4) fL Immature Gran % (Auto) 1.1 H (0.0-0.4) % Neut % (Auto) 64.4 (45-73) % Lymph % (Auto) 26.1 (20-40) % [place] % (Auto) 6.4 (2-11) % Eos % (Auto) 1.7 (0-4) % Baso % (Auto) 0.3 (0-2) % Lymph # (Auto) 2.5 (1.2-4.9) X10*3/uL [place] # (Auto) 0.6 (0.1-1.2) X10*3/uL Eos # (Auto) 0.2 (0.0-0.4) X10*3/uL Baso # (Auto) 0.0 (0.0-0.2) X10*3/uL Abs Immat Gran (auto) 0.10 H (0.00-0.03) X10*3/uL Absolute Neuts (auto) 6.1 (2.0-8.3) x10*3/uL Absolute Nucleated RBC 0.000 (0.0-0.012) X10*3/uL Nucleated RBC % (auto) 0.0 (0.0-0.2) /100WBC PT 12.0 (10.0-13.1) SEC INR 1.0 (0.9-1.1) Sodium 140 (135-145) mmol/L Potassium 4.2 (3.3-5.1) mmol/L Chloride 108 (96-108) mmol/L Carbon Dioxide 26 (22-29) mmol/L Anion Gap 10 L (12-20) BUN 14 (9-16) mg/dL Creatinine 0.87 (0.5-1.4) mg/dL Estim Creat Clear Calc 135.2 Estimated GFR > 60 Random Glucose 115 (60-115) mg/dL Calcium 8.7 D (8.4-10.2) mg/dL Magnesium 2.0 (1.6-2.6) mg/dL Total Bilirubin 0.4 (0.0-1.0) mg/dL Direct Bilirubin < 0.2 (0.0-0.5) mg/dL AST 10 (5-37) U/L ALT 16 (0-40) U/L Alkaline Phosphatase 44 (39-117) U/L Troponin I High Sens (<3.5-35.0) ng/L Total Protein 6.5 (6.5-8.0) g/dL Albumin 4.2 (3.5-5.0) g/dL Urine Color Urine Appearance Urine pH (5.0-9.0) Ur Specific [place] (1.005-1.025) Urine Protein (Neg-Trace) mg/dL Urine Glucose (UA) (Negative) mg/dL Urine Ketones (Negative) mg/dL Urine Blood (Negative) Urine Nitrite (Negative) Ur Leukocyte Esterase (Negative) Urine Opiates Screen (Not Detect) Urine Fentanyl Screen (Not Detect) Ur Barbiturates Screen (Not Detect) Ur Phencyclidine Scrn (Not Detect) Ur Amphetamines Screen (Not Detect) U Benzodiazepines Scrn (Not Detect) Urine Cocaine Screen (Not Detect) U Marijuana (THC) Screen (Not Detect) 07/27/22 07/27/22 07/27/22 Range/Units 12:12 14:19 14:19 WBC (4.8-10.8) X10*3/uL RBC (4.60-5.80) X10*6/uL Hgb (14.0-18.0) g/dl Hct (42.0-52.0) % MCV (80.0-98.0) fL MCH (27.0-33.0) pg MCHC (31.0-36.0) g/dl RDW (11.0-16.0) % Plt Count (160-400) X10*3/uL MPV (9.4-12.4) fL Immature Gran % (Auto) (0.0-0.4) % Neut % (Auto) (45-73) % Lymph % (Auto) (20-40) % [place] % (Auto) (2-11) % Eos % (Auto) (0-4) % Baso % (Auto) (0-2) % Lymph # (Auto) (1.2-4.9) X10*3/uL [place] # (Auto) (0.1-1.2) X10*3/uL Eos # (Auto) (0.0-0.4) X10*3/uL Baso # (Auto) (0.0-0.2) X10*3/uL Abs Immat Gran (auto) (0.00-0.03) X10*3/uL Absolute Neuts (auto) (2.0-8.3) x10*3/uL Absolute Nucleated RBC (0.0-0.012) X10*3/uL Nucleated RBC % (auto) (0.0-0.2) /100WBC PT (10.0-13.1) SEC INR (0.9-1.1) Sodium (135-145) mmol/L Potassium (3.3-5.1) mmol/L Chloride (96-108) mmol/L Carbon Dioxide (22-29) mmol/L Anion Gap (12-20) BUN (9-16) mg/dL Creatinine (0.5-1.4) mg/dL Estim Creat Clear Calc Estimated GFR Random Glucose (60-115) mg/dL Calcium (8.4-10.2) mg/dL Magnesium (1.6-2.6) mg/dL Total Bilirubin (0.0-1.0) mg/dL Direct Bilirubin (0.0-0.5) mg/dL AST (5-37) U/L ALT (0-40) U/L Alkaline Phosphatase (39-117) U/L Troponin I High Sens 4.3 (<3.5-35.0) ng/L Total Protein (6.5-8.0) g/dL Albumin (3.5-5.0) g/dL Urine Color Yellow Urine Appearance Clear Urine pH 7.0 (5.0-9.0) Ur Specific [place] 1.025 (1.005-1.025) Urine Protein Negative (Neg-Trace) mg/dL Urine Glucose (UA) Negative (Negative) mg/dL Urine Ketones Trace (Negative) mg/dL Urine Blood Negative (Negative) Urine Nitrite Negative (Negative) Ur Leukocyte Esterase Negative (Negative) Urine Opiates Screen Not Detected (Not Detect) Urine Fentanyl Screen Not Detected (Not Detect) Ur Barbiturates Screen Not Detected (Not Detect) Ur Phencyclidine Scrn Not Detected (Not Detect) Ur Amphetamines Screen Not Detected (Not Detect) U Benzodiazepines Scrn Not Detected (Not Detect) Urine Cocaine Screen POSITIVE H (Not Detect) U Marijuana (THC) Screen Not Detected (Not Detect) <Letha Leonardo NP - Last Filed: 07/27/22 12:17> Lab Results 12/12/22 12/12/22 12/12/22 Range/Units 12:12 12:12 12:12 WBC 9.4 (4.8-10.8) X10*3/uL RBC 4.33 L (4.60-5.80) X10*6/uL Hgb 13.1 L (14.0-18.0) g/dl Hct 39.5 L (42.0-52.0) % MCV 91.2 (80.0-98.0) fL MCH 30.3 (27.0-33.0) pg MCHC 33.2 (31.0-36.0) g/dl RDW 12.8 (11.0-16.0) % Plt Count 251 (160-400) X10*3/uL MPV 10.8 (9.4-12.4) fL Immature Gran % (Auto) 1.1 H (0.0-0.4) % Neut % (Auto) 64.4 (45-73) % Lymph % (Auto) 26.1 (20-40) % [place] % (Auto) 6.4 (2-11) % Eos % (Auto) 1.7 (0-4) % Baso % (Auto) 0.3 (0-2) % Lymph # (Auto) 2.5 (1.2-4.9) X10*3/uL [place] # (Auto) 0.6 (0.1-1.2) X10*3/uL Eos # (Auto) 0.2 (0.0-0.4) X10*3/uL Baso # (Auto) 0.0 (0.0-0.2) X10*3/uL Abs Immat Gran (auto) 0.10 H (0.00-0.03) X10*3/uL Absolute Neuts (auto) 6.1 (2.0-8.3) x10*3/uL Absolute Nucleated RBC 0.000 (0.0-0.012) X10*3/uL Nucleated RBC % (auto) 0.0 (0.0-0.2) /100WBC PT 12.0 (10.0-13.1) SEC INR 1.0 (0.9-1.1) Sodium 140 (135-145) mmol/L Potassium 4.2 (3.3-5.1) mmol/L Chloride 108 (96-108) mmol/L Carbon Dioxide 26 (22-29) mmol/L Anion Gap 10 L (12-20) BUN 14 (9-16) mg/dL Creatinine 0.87 (0.5-1.4) mg/dL Estim Creat Clear Calc 135.2 Estimated GFR > 60 Random Glucose 115 (60-115) mg/dL Calcium 8.7 D (8.4-10.2) mg/dL Magnesium 2.0 (1.6-2.6) mg/dL Total Bilirubin 0.4 (0.0-1.0) mg/dL Direct Bilirubin < 0.2 (0.0-0.5) mg/dL AST 10 (5-37) U/L ALT 16 (0-40) U/L Alkaline Phosphatase 44 (39-117) U/L Troponin I High Sens (<3.5-35.0) ng/L Total Protein 6.5 (6.5-8.0) g/dL Albumin 4.2 (3.5-5.0) g/dL Urine Color Urine Appearance Urine pH (5.0-9.0) Ur Specific [place] (1.005-1.025) Urine Protein (Neg-Trace) mg/dL Urine Glucose (UA) (Negative) mg/dL Urine Ketones (Negative) mg/dL Urine Blood (Negative) Urine Nitrite (Negative) Ur Leukocyte Esterase (Negative) Urine Opiates Screen (Not Detect) Urine Fentanyl Screen (Not Detect) Ur Barbiturates Screen (Not Detect) Ur Phencyclidine Scrn (Not Detect) Ur Amphetamines Screen (Not Detect) U Benzodiazepines Scrn (Not Detect) Urine Cocaine Screen (Not Detect) U Marijuana (THC) Screen (Not Detect) 07/27/22 07/27/22 07/27/22 Range/Units 12:12 14:19 14:19 WBC (4.8-10.8) X10*3/uL RBC (4.60-5.80) X10*6/uL Hgb (14.0-18.0) g/dl Hct (42.0-52.0) % MCV (80.0-98.0) fL MCH (27.0-33.0) pg MCHC (31.0-36.0) g/dl RDW (11.0-16.0) % Plt Count (160-400) X10*3/uL MPV (9.4-12.4) fL Immature Gran % (Auto) (0.0-0.4) % Neut % (Auto) (45-73) % Lymph % (Auto) (20-40) % [place] % (Auto) (2-11) % Eos % (Auto) (0-4) % Baso % (Auto) (0-2) % Lymph # (Auto) (1.2-4.9) X10*3/uL [place] # (Auto) (0.1-1.2) X10*3/uL Eos # (Auto) (0.0-0.4) X10*3/uL Baso # (Auto) (0.0-0.2) X10*3/uL Abs Immat Gran (auto) (0.00-0.03) X10*3/uL Absolute Neuts (auto) (2.0-8.3) x10*3/uL Absolute Nucleated RBC (0.0-0.012) X10*3/uL Nucleated RBC % (auto) (0.0-0.2) /100WBC PT (10.0-13.1) SEC INR (0.9-1.1) Sodium (135-145) mmol/L Potassium (3.3-5.1) mmol/L Chloride (96-108) mmol/L Carbon Dioxide (22-29) mmol/L Anion Gap (12-20) BUN (9-16) mg/dL Creatinine (0.5-1.4) mg/dL Estim Creat Clear Calc Estimated GFR Random Glucose (60-115) mg/dL Calcium (8.4-10.2) mg/dL Magnesium (1.6-2.6) mg/dL Total Bilirubin (0.0-1.0) mg/dL Direct Bilirubin (0.0-0.5) mg/dL AST (5-37) U/L ALT (0-40) U/L Alkaline Phosphatase (39-117) U/L Troponin I High Sens 4.3 (<3.5-35.0) ng/L Total Protein (6.5-8.0) g/dL Albumin (3.5-5.0) g/dL Urine Color Yellow Urine Appearance Clear Urine pH 7.0 (5.0-9.0) Ur Specific [place] 1.025 (1.005-1.025) Urine Protein Negative (Neg-Trace) mg/dL Urine Glucose (UA) Negative (Negative) mg/dL Urine Ketones Trace (Negative) mg/dL Urine Blood Negative (Negative) Urine Nitrite Negative (Negative) Ur Leukocyte Esterase Negative (Negative) Urine Opiates Screen Not Detected (Not Detect) Urine Fentanyl Screen Not Detected (Not Detect) Ur Barbiturates Screen Not Detected (Not Detect) Ur Phencyclidine Scrn Not Detected (Not Detect) Ur Amphetamines Screen Not Detected (Not Detect) U Benzodiazepines Scrn Not Detected (Not Detect) Urine Cocaine Screen POSITIVE H (Not Detect) U Marijuana (THC) Screen Not Detected (Not Detect) <Jeff Heath MD - Last Filed: 07/27/22 15:39> Independent Interpretation I performed an independent interpretation of an: EKG and Plain X-Ray ( No acute intrathoracic pathology.) <Jeff Heath MD - Last Filed: 07/27/22 15:39> Interpretation: Normal sinus rhythm at 85 beats per minute with normal intervals, no ST-T changes, no change from previous EKG. <Jeff Heath MD - Last Filed: 07/27/22 15:39> Radiology Impression Discussion of test interpretation with radiology: I have reviewed the radiologist's reading. <Jeff Heath MD - Last Filed: 07/27/22 15:39> Discharge Plan Discharge Clinical Impression: Atypical chest pain <Letha Leonardo NP - Last Filed: 07/27/22 12:17> Patient Disposition: Home, Self-Care <Letha Leonardo NP - Last Filed: 07/27/22 12:17> Instructions: Chest Pain (DC) <Letha Leonardo NP - Last Filed: 07/27/22 12:17> Prescriptions: No Action fenofibrate 160 mg tablet 160 mg PO DAILY 90 Days Qty: 90 1RF albuterol sulfate [ProAir HFA] 90 mcg/actuation HFA aerosol inhaler 1 inh inhalation QID PRN (Reason: shortness of breath or wheezing) Qty: 6.7 0RF Anoro Ellipta 62.5-25 mcg/actuation blister with device 1 ea PO DAILY Qty: 60 8RF albuterol sulfate 2.5 mg /3 mL (0.083 %) solution for nebulization 2.5 mg inhalation TID Qty: 225 3RF indomethacin 50 mg capsule 50 mg PO BID 10 Days Qty: 20 1RF Rx Instructions: administer with food or milk folic acid 1 mg tablet 1 mg PO DAILY Qty: 30 11RF lisinopril 30 mg tablet 30 mg PO DAILY 90 Days Qty: 90 1RF (DME) Blood Pressure Cuff Misc See Rx Instructions .Route Qty: 1 0RF Rx Instructions: As directed nicotine 21 mg/24 hr patch 24 hour 1 patch transdermal DAILY 28 Days Qty: 28 0RF (DME) Shower Chair Misc See Rx Instructions .Route Qty: 1 0RF Rx Instructions: As directed (DME) Grab bar Misc See Rx Instructions .Route Qty: 1 0RF Rx Instructions: As directed carisoprodol 350 mg tablet 350 mg PO TID PRN (Reason: Muscle Pain) 30 Days Qty: 90 0RF pantoprazole 40 mg tablet,delayed release (DR/EC) 40 mg PO DAILY 90 Days Qty: 90 0RF oxcarbazepine 300 mg tablet 1 tab PO BID buspirone 10 mg tablet 1 tab PO TID clonazepam 2 mg tablet 1 tab PO BID zolpidem 10 mg tablet 1 tab PO BEDTIME PRN (Reason: Insomnia) prazosin 2 mg capsule 1 cap PO BID hydroxyzine pamoate 25 mg capsule 1 cap PO BID PRN (Reason: Anxiety) aripiprazole 10 mg tablet 1 tab PO QAM naloxone [Narcan] 4 mg/actuation spray,non-aerosol 4 mg intranasal Q2M PRN (Reason: opioid overdose) Qty: 2 0RF Rx Instructions: spray 1 dose into ONE nostril; alternate nostrils w each dose until help arrives cyanocobalamin (vitamin B-12) 1,000 mcg tablet extended release 1,000 mcg PO DAILY 90 Days Qty: 90 3RF cholecalciferol (vitamin D3) 25 mcg (1,000 unit) capsule 25 mcg PO DAILY 90 Days Qty: 90 1RF ibuprofen 800 mg tablet 800 mg PO Q8H 30 Days Qty: 90 3RF prednisone 10 mg tablet 10 mg PO DAILY 4 Days Qty: 4 0RF oxcarbazepine 600 mg tablet 600 mg PO BID melatonin 5 mg capsule 5 mg PO BEDTIME PRN (Reason: Insomnia) <Letha Leonardo NP - Last Filed: 07/27/22 12:17> Referrals: Fabian Brooks MD [Physician] - <Letha Leonardo NP - Last Filed: 07/27/22 12:17>
[2022-07-27 12:15] VITALS: BP 176/92; PULSE 85; RESP 18; TEMP 36.8; O2SAT 97; BMI 34.0
[2022-07-27 12:15] LABS: MANUAL DIFF FLAG NO
[2022-07-27 12:21] LABS: Basophils Percent Auto 0.3 % (0-2); Eosinophils Absolute Auto 0.2 X10*3/uL (0.0-0.4); Eosinophils Percent Auto 1.7 % (0-4); Hematocrit 39.5 % (42.0-52.0); Hemoglobin 13.1 g/dl (14.0-18.0); Imm Gran Pct Auto 1.1 % (0.0-0.4); Lymphocytes Absolute Auto 2.5 X10*3/uL (1.2-4.9); Lymphocytes Percent Auto 26.1 % (20-40); Mean Corpuscular HGB Conc 33.2 g/dl (31.0-36.0); Mean Corpuscular Hemoglobin 30.3 pg (27.0-33.0); Mean Corpuscular Volume 91.2 fL (80.0-98.0); Mean Platelet Volume 10.8 fL (9.4-12.4); Monocytes Absolute Auto 0.6 X10*3/uL (0.1-1.2); Monocytes Percent Auto 6.4 % (2-11); Neutrophils Absolute Auto 6.1 x10*3/uL (2.0-8.3); Neutrophils Percent Auto 64.4 % (45-73); Platelet Count 251 X10*3/uL (160-400); Red Blood Count 4.33 X10*6/uL (4.60-5.80); Red Cell Distribution Width 12.8 % (11.0-16.0); White Blood Count 9.4 X10*3/uL (4.8-10.8)
[2022-07-27 12:35] LABS: Alanine Aminotransferase 16 U/L (0-40); Albumin Level 4.2 g/dL (3.5-5.0); Alkaline Phosphatase 44 U/L (39-117); Anion Gap 10 (12-20); Aspartate Amino Transferase 10 U/L (5-37); Bilirubin Direct < 0.2 mg/dL (0.0-0.5); Bilirubin Total 0.4 mg/dL (0.0-1.0); Blood Urea Nitrogen 14 mg/dL (9-16); Calcium 8.7 mg/dL (8.4-10.2); Carbon Dioxide 26 mmol/L (22-29); Chloride 108 mmol/L (96-108); Creatinine Clr Calc Pharmacy 135.2; Estimated Glomerular Filt Rate > 60; Glucose Random 115 mg/dL (60-115); Potassium 4.2 mmol/L (3.3-5.1); Sodium 140 mmol/L (135-145); Total Protein 6.5 g/dL (6.5-8.0)
[2022-07-27 12:38] LABS: Troponin-I High Sensitivity 4.3 ng/L (<3.5-35.0)
[2022-07-27 14:32] LABS: Appearance Urine Clear; Color Urine Yellow; Glucose Urine UA Negative (Negative); Leukocyte Esterase Urine Negative (Negative); Nitrite Urine Negative (Negative); Specific Gravity - Urine 1.025 (1.005-1.025); Urine Blood Negative (Negative); Urine Ketones Trace mg/dL (Negative); Urine Protein Negative (Neg-Trace)
[2022-07-27 14:42] LABS: Amphetamine Screen Urine Not Detected (Not Detect); Barbiturates, Urine Not Detected (Not Detect); Benzodiazepines Screen Urine Not Detected (Not Detect); Cannabinoid Screen Urine Not Detected (Not Detect); Cocaine Screen Urine POSITIVE (Not Detect); Fentanyl, urine Not Detected (Not Detect); Opiate Screen Urine Not Detected (Not Detect); Phencyclidine Screen Urine Not Detected (Not Detect)
[2022-07-27 14:52] VITALS: BP 135/80; PULSE 79; RESP 18; TEMP 36.6; O2SAT 98
--- NOTE | 2022-07-27 14:55 | PC.NURSE ---
patient a/ox4 . joelle . heart rate regular at 80 beat per minute . breathing even and unlabored , lungs clear throughout . skin pink warm and dry . abdomen soft , positive bowl sounds in all four quadrants . patient denies any chest pain at this time . currently on phototypesetting equipment monitor at this time . patient aware of plan of care
[2022-07-27 15:38] LABS: Troponin-I High Sensitivity 6.4 ng/L (<3.5-35.0)
== END 2022-07-27 16:00 | disposition home or self-care (01) ==
PROVIDERS: Nurse Practitioner Family; Emergency Provider Emergency Medicine; PCP Internal Medicine
DX: R07.89 Other chest pain (principal); I10 Essential (primary) hypertension; E78.5 Hyperlipidemia, unspecified; F17.210 Nicotine dependence, cigarettes, uncomplicated; F14.10 Cocaine abuse, uncomplicated; Z79.899 Other long term (current) drug therapy
CPT/HCPCS: 36415; 71045; 80048; 80076; 80307; 81003; 83735; 84484; 85025; 85610; 93005; 99283; 99284

== ENCOUNTER 2022-08-01 18:58 | Emergency (ER) | payer OTHER, SELFPAY ==
[2022-08-01 19:10] VITALS: BP 184/114; PULSE 95; RESP 16; TEMP 36.2; O2SAT 97; BMI 74.9
--- NOTE | 2022-08-01 19:11 | ED.DIZZY ---
HPI - Dizziness General Chief Complaint: Overdose <ROBIN Rutledge - Last Filed: 08/01/22 19:16> Stated Complaint: dizzy, substance ingestion <ROBIN Rutledge - Last Filed: 08/01/22 19:16> Time Seen by Provider: 08/01/22 19:23 <ROBIN Rutledge - Last Filed: 08/01/22 19:16> Source: patient <Praveen Phillip MD - Last Filed: 08/01/22 22:43> Limitations: no limitations <Praveen Phillip MD - Last Filed: 08/01/22 22:43> History of Present Illness HPI Narrative: This is a 52-year-old male who admits to snorting a line of cocaine tonight. He believes cocaine was laced with another medicine such as fentanyl as he apparently became unresponsive and was administered naloxone 8 mg. The patient has been awake since then. He initially felt dizzy but now has no complaints. He denies any headache, chest pain, shortness of breath, abdominal pain, nausea vomiting. He states at this point he actually feels very hungry. He does have history of hypertension but denies any history of any heart attack or coronary artery disease. Patient denies being suicidal. He states that he ?messed up? by taking the cocaine and would like to go home. <Praveen Phillip MD - Last Filed: 08/01/22 22:43> Related Data Home Medications: Home Medications Medication Instructions Recorded Confirmed aripiprazole 10 mg tablet 1 tab PO QAM 08/25/20 12/31/21 buspirone 10 mg tablet 1 tab PO TID 08/25/20 12/31/21 clonazepam 2 mg tablet 1 tab PO BID 08/25/20 12/31/21 hydroxyzine pamoate 25 mg capsule 1 cap PO BID PRN Anxiety 08/25/20 12/31/21 oxcarbazepine 300 mg tablet 1 tab PO BID 08/25/20 12/31/21 prazosin 2 mg capsule 1 cap PO BID 08/25/20 12/31/21 zolpidem 10 mg tablet 1 tab PO BEDTIME PRN Insomnia 08/25/20 12/31/21 oxcarbazepine 600 mg tablet 600 mg PO BID 09/10/20 12/31/21 melatonin 5 mg capsule 5 mg PO BEDTIME PRN Insomnia 06/03/21 12/31/21 Previous Rx's Medication Instructions Recorded fenofibrate 160 mg tablet 160 mg PO DAILY 90 days #90 tabs 02/18/21 cholecalciferol (vitamin D3) 25 25 mcg PO DAILY 90 days #90 caps 05/26/21 mcg (1,000 unit) capsule cyanocobalamin (vitamin B-12) 1,000 mcg PO DAILY 90 days #90 tabs 05/26/21 1,000 mcg tablet,extended release naloxone 4 mg/actuation nasal 4 mg intranasal Q2M PRN opioid 08/26/21 spray (Narcan) overdose #2 ea albuterol sulfate 90 mcg/actuation 1 inh inhalation QID PRN shortness 12/11/21 aerosol inhaler (ProAir HFA) of breath or wheezing #6.7 grams ibuprofen 800 mg tablet 800 mg PO Q8H 30 days #90 tabs 12/31/21 prednisone 10 mg tablet 10 mg PO DAILY 4 days #4 tabs 12/31/21 umeclidinium 62.5 mcg-vilanterol 1 ea PO DAILY #60 caps 02/18/22 25 mcg/actuation powdr for inhalation (Anoro Ellipta) albuterol sulfate 2.5 mg/3 mL 2.5 mg (3 mL) inhalation TID #225 05/05/22 (0.083 %) solution for nebulization mL folic acid 1 mg tablet 1 mg PO DAILY #30 tabs 05/15/22 indomethacin 50 mg capsule 50 mg PO BID 10 days #20 caps 05/15/22 lisinopril 30 mg tablet 30 mg PO DAILY 90 days #90 tabs 06/23/22 Grab bar #1 ea 06/24/22 Shower Chair #1 ea 06/24/22 miscellaneous medical supply #1 ea 06/24/22 (Blood Pressure Cuff) nicotine 21 mg/24 hr daily 1 patch transdermal DAILY 28 days 06/24/22 transdermal patch #28 ea carisoprodol 350 mg tablet 350 mg PO TID PRN Muscle Pain 30 07/15/22 days #90 tabs pantoprazole 40 mg tablet,delayed 40 mg PO DAILY 90 days #90 tabs 07/24/22 release naloxone 4 mg/actuation nasal 4 mg intranasal Q2M PRN opioid 08/01/22 spray (Narcan) overdose #2 ea <ROBIN Rutledge - Last Filed: 08/01/22 19:16> Allergies/Adverse Reactions: Allergies Allergy/AdvReac Type Severity Reaction Status Date / Time bee stings Allergy Severe Anaphylaxis Verified 07/27/22 12:14 hydromorphone [From DILAUDID] AdvReac Severe VIOLENTLY Verified 07/27/22 12:14 ILL NEEDS TO EAT FIRST <ROBIN Rutledge - Last Filed: 08/01/22 19:16> Review of Systems Review of Systems: Yes all other systems are reviewed and are negative <Praveen Phillip MD - Last Filed: 08/01/22 22:43> Constitutional: Constitutional: Reports as per HPI and Denies fever(s) <Praveen Phillip MD - Last Filed: 08/01/22 22:43> Eyes: Eyes: Reports as per HPI and Reports no additional eye complaints <Praveen Phillip MD - Last Filed: 08/01/22 22:43> ENT: Reports system reviewed and no additional complaints, except as documented, Reports as per HPI, Denies nasal congestion, Denies nasal discharge and Denies sore throat <Praveen Phillip MD - Last Filed: 08/01/22 22:43> Cardiovascular: Cardiovascular: Reports as per HPI, Denies chest pain and Denies dyspnea <Praveen Phillip MD - Last Filed: 08/01/22 22:43> Respiratory: Respiratory: Reports as per HPI, Denies cough and Denies dyspnea <Praveen Phillip MD - Last Filed: 08/01/22 22:43> Gastrointestinal: Gastrointestinal: Reports as per HPI, Denies abdominal pain, Denies diarrhea and Denies vomiting <Praveen Phillip MD - Last Filed: 08/01/22 22:43> Musculoskeletal: Musculoskeletal: Reports no additional musculoskeletal complaints and Denies numbness <Praveen Phillip MD - Last Filed: 08/01/22 22:43> Integumentary/Breasts: Skin/Breast: Reports as per HPI and Denies rash <Praveen Phillip MD - Last Filed: 08/01/22 22:43> Neurologic: Reports as per HPI, Denies focal weakness and Denies numbness <Praveen Phillip MD - Last Filed: 08/01/22 22:43> Psychiatric: Psychiatric: Reports no additional psychiatric complaints and Reports as per HPI <Praveen Phillip MD - Last Filed: 08/01/22 22:43> Endocrine: Endocrine: Reports no additional endocrine complaints and Reports as per HPI <Praveen Phillip MD - Last Filed: 08/01/22 22:43> Hematologic/Lymphatic: Hematologic/Lymphatic: Reports no additional hematologic/lymphatic complaints, Reports as per HPI and Reports other (No peripheral edema) <Praveen Phillip MD - Last Filed: 08/01/22 22:43> [facility] Past Medical History Medical History: Medical History COPD (chronic obstructive pulmonary disease) COVID-19 Essential hypertension GERD (gastroesophageal reflux disease) Gout History of pneumonia Hypoxemia Lactic acid acidosis Lumbar degenerative disc disease Lymphopenia Mixed hyperlipidemia Opioid overdose Pernicious anemia Positive colorectal cancer screening using Cologuard test <ROBIN Rutledge - Last Filed: 08/01/22 19:16> Surgical History: Surgical History History of arthroscopy of left knee History of esophagogastroduodenoscopy (EGD) History of shoulder surgery History of surgery History of total left knee replacement Hx of colonoscopy Status post surgical removal of malignant neoplasm of skin <ROBIN Rutledge - Last Filed: 08/01/22 19:16> Family History Family History: Family History Father Lung cancer Mother Chronic mental illness Alzheimer disease Maternal Grandmother Bone cancer Hypertension Paternal Grandmother Brain cancer Maternal Uncle Cancer Family/Other Chronic mental illness Substance use disorder <ROBIN Rutledge - Last Filed: 08/01/22 19:16> Social History Social History: Social History Household Members: None and Other Household Members Other:: 2 room mates Housing: House Do you presently have visiting nurse or other home services: No Alcohol intake: current Alcohol intake frequency: a few times a month Patient Tobacco Use Status: Former Tobacco user Tobacco use type: Cigarette Cigarette Packs Per Day: 1 Smoked in Last 30 Days: Yes e-Cigarette/Vaping Use: Never Used Second Hand Smoke Exposure: No Use of substances other than those prescribed or required for medical reasons: Yes Substance Use Type: Crack/Cocaine Substance Use Frequency: Occasionally Last Used Substance: Just Prior to Admission Any prior treatment program specific to substance use: No Advance Directives: No Advance Directives Information Provided: No service: No Current occupational status: unemployed and disabled Cognitive needs: No Hearing needs: No Vision needs: No <ROBIN Rutledge - Last Filed: 08/01/22 19:16> Physical Exam Vital Signs: Vital Signs: Last Vital Signs Temp 97.9 F 08/01/22 22:00 Pulse 74 08/01/22 22:00 Resp 16 08/01/22 22:00 BP 160/86 H 08/01/22 22:00 Pulse Ox 97 08/01/22 22:00 O2 Del Method 08/01/22 22:00 BMI result Body Mass Index 74.9 <ROBIN Rutledge - Last Filed: 08/01/22 19:16> Vital Signs: Last Vital Signs Temp 97.9 F 08/01/22 22:00 Pulse 74 08/01/22 22:00 Resp 16 08/01/22 22:00 BP 160/86 H 08/01/22 22:00 Pulse Ox 97 08/01/22 22:00 O2 Del Method 08/01/22 22:00 BMI result Body Mass Index 74.9 <Praveen Phillip MD - Last Filed: 08/01/22 22:43> Course Course Course Narrative: NURY - 52yoM c PMHx of HTN and drug usage who is presenting to the ED with complaints of sudden onset of dizziness/lightheadedness feeling like he was going to pass out with associated nausea and chest pain/shortness of breath that started after he did some cocaine at a [employer] party. He reports that he only did small amount of cocaine. He was also drinking small amount. Although did not feel well therefore he called a friend to pick him up. The friend noticed that he did not look well and gave him 8 mg of Narcan and it appeared to help the patient although she feels like he is getting worse at this time. He reports the chest pain is resolved. He continues to report dizziness, lightheadedness, nausea and just feeling unwell. Denies any other drug usage that he is aware of. Denies any other symptoms complaints or concerns at this time. Plan: Labs, chest x-ray, EKG, drug urine screen, COVID/RSV/flu swab. Patient will be brought to the emergency department for further evaluation treatment to the main ER. <ROBIN Rutledge - Last Filed: 08/01/22 19:16> RME - 52yoM c PMHx of HTN and drug usage who is presenting to the ED with complaints of sudden onset of dizziness/lightheadedness feeling like he was going to pass out with associated nausea and chest pain/shortness of breath that started after he did some cocaine at a [employer] party. He reports that he only did small amount of cocaine. He was also drinking small amount. Although did not feel well therefore he called a friend to pick him up. The friend noticed that he did not look well and gave him 8 mg of Narcan and it appeared to help the patient although she feels like he is getting worse at this time. He reports the chest pain is resolved. He continues to report dizziness, lightheadedness, nausea and just feeling unwell. Denies any other drug usage that he is aware of. Denies any other symptoms complaints or concerns at this time. Plan: Labs, chest x-ray, EKG, drug urine screen, COVID/RSV/flu swab. Patient will be brought to the emergency department for further evaluation treatment to the main ER. Patient with no symptoms when evaluated by the ED MD, vital signs unremarkable. Patient not suicidal. EKG does not show any ischemic changes. The patient is safe for outpatient treatment. I am prescribing a Narcan intranasal dose pack <Praveen Phillip MD - Last Filed: 08/01/22 22:43> Medical Decision Making Lab Data MDM Lab Attestation statement: I reviewed the patient's lab results. <Praveen Phillip MD - Last Filed: 08/01/22 22:43> Result Diagrams: : 08/01/22 19:46 08/01/22 19:46 <ROBIN Rutledge - Last Filed: 08/01/22 19:16> Labs: Lab Results 08/01/22 08/01/22 08/01/22 Range/Units 19:46 19:46 19:46 WBC 16.5 H (4.8-10.8) X10*3/uL RBC 4.35 L (4.60-5.80) X10*6/uL Hgb 13.1 L (14.0-18.0) g/dl Hct 39.4 L (42.0-52.0) % MCV 90.6 (80.0-98.0) fL MCH 30.1 (27.0-33.0) pg MCHC 33.2 (31.0-36.0) g/dl RDW 13.0 (11.0-16.0) % Plt Count 215 (160-400) X10*3/uL MPV 10.5 (9.4-12.4) fL Immature Gran % (Auto) 1.1 H (0.0-0.4) % Neut % (Auto) 91.1 H (45-73) % Lymph % (Auto) 5.4 L (20-40) % Simpson % (Auto) 2.1 (2-11) % Eos % (Auto) 0.1 (0-4) % Baso % (Auto) 0.2 (0-2) % Lymph # (Auto) 0.9 L (1.2-4.9) X10*3/uL Simpson # (Auto) 0.3 (0.1-1.2) X10*3/uL Eos # (Auto) 0.0 (0.0-0.4) X10*3/uL Baso # (Auto) 0.0 (0.0-0.2) X10*3/uL Abs Immat Gran (auto) 0.18 H (0.00-0.03) X10*3/uL Absolute Neuts (auto) 15.1 H (2.0-8.3) x10*3/uL Absolute Nucleated RBC 0.000 (0.0-0.012) X10*3/uL Nucleated RBC % (auto) 0.0 (0.0-0.2) /100WBC Smear Tech's Comments VERIFIED PT 12.4 (10.0-13.1) SEC INR 1.1 (0.9-1.1) Sodium 136 (135-145) mmol/L Potassium 4.4 (3.3-5.1) mmol/L Chloride 103 (96-108) mmol/L Carbon Dioxide 19 L (22-29) mmol/L Anion Gap 18 (12-20) BUN 12 (9-16) mg/dL Creatinine 0.85 (0.5-1.4) mg/dL Estim Creat Clear Calc 220.7 Estimated GFR > 60 Random Glucose 166 H (60-115) mg/dL Calcium 9.5 D (8.4-10.2) mg/dL Magnesium 1.7 (1.6-2.6) mg/dL Total Bilirubin 0.5 (0.0-1.0) mg/dL AST 15 (5-37) U/L ALT 20 (0-40) U/L Alkaline Phosphatase 46 (39-117) U/L Troponin I High Sens (<3.5-35.0) ng/L Total Protein 6.9 (6.5-8.0) g/dL Albumin 4.4 (3.5-5.0) g/dL Ethyl Alcohol < 10 mg/dL Influenza Type A (PCR) (Negative) Influenza Type B (PCR) (Negative) RSV RNA Qual (PCR) (Negative) SARS-CoV-2 RNA (RT-PCR) (Negative) 08/01/22 08/01/22 Range/Units 19:46 19:46 WBC (4.8-10.8) X10*3/uL RBC (4.60-5.80) X10*6/uL Hgb (14.0-18.0) g/dl Hct (42.0-52.0) % MCV (80.0-98.0) fL MCH (27.0-33.0) pg MCHC (31.0-36.0) g/dl RDW (11.0-16.0) % Plt Count (160-400) X10*3/uL MPV (9.4-12.4) fL Immature Gran % (Auto) (0.0-0.4) % Neut % (Auto) (45-73) % Lymph % (Auto) (20-40) % Simpson % (Auto) (2-11) % Eos % (Auto) (0-4) % Baso % (Auto) (0-2) % Lymph # (Auto) (1.2-4.9) X10*3/uL Simpson # (Auto) (0.1-1.2) X10*3/uL Eos # (Auto) (0.0-0.4) X10*3/uL Baso # (Auto) (0.0-0.2) X10*3/uL Abs Immat Gran (auto) (0.00-0.03) X10*3/uL Absolute Neuts (auto) (2.0-8.3) x10*3/uL Absolute Nucleated RBC (0.0-0.012) X10*3/uL Nucleated RBC % (auto) (0.0-0.2) /100WBC Smear Tech's Comments PT (10.0-13.1) SEC INR (0.9-1.1) Sodium (135-145) mmol/L Potassium (3.3-5.1) mmol/L Chloride (96-108) mmol/L Carbon Dioxide (22-29) mmol/L Anion Gap (12-20) BUN (9-16) mg/dL Creatinine (0.5-1.4) mg/dL Estim Creat Clear Calc Estimated GFR Random Glucose (60-115) mg/dL Calcium (8.4-10.2) mg/dL Magnesium (1.6-2.6) mg/dL Total Bilirubin (0.0-1.0) mg/dL AST (5-37) U/L ALT (0-40) U/L Alkaline Phosphatase (39-117) U/L Troponin I High Sens < 3.5 (<3.5-35.0) ng/L Total Protein (6.5-8.0) g/dL Albumin (3.5-5.0) g/dL Ethyl Alcohol mg/dL Influenza Type A (PCR) NEGATIVE (Negative) Influenza Type B (PCR) NEGATIVE (Negative) RSV RNA Qual (PCR) NEGATIVE (Negative) SARS-CoV-2 RNA (RT-PCR) NEGATIVE (Negative) <ROBIN Rutledge - Last Filed: 08/01/22 19:16> Lab Results 08/01/22 08/01/22 08/01/22 Range/Units 19:46 19:46 19:46 WBC 16.5 H (4.8-10.8) X10*3/uL RBC 4.35 L (4.60-5.80) X10*6/uL Hgb 13.1 L (14.0-18.0) g/dl Hct 39.4 L (42.0-52.0) % MCV 90.6 (80.0-98.0) fL MCH 30.1 (27.0-33.0) pg MCHC 33.2 (31.0-36.0) g/dl RDW 13.0 (11.0-16.0) % Plt Count 215 (160-400) X10*3/uL MPV 10.5 (9.4-12.4) fL Immature Gran % (Auto) 1.1 H (0.0-0.4) % Neut % (Auto) 91.1 H (45-73) % Lymph % (Auto) 5.4 L (20-40) % Simpson % (Auto) 2.1 (2-11) % Eos % (Auto) 0.1 (0-4) % Baso % (Auto) 0.2 (0-2) % Lymph # (Auto) 0.9 L (1.2-4.9) X10*3/uL Simpson # (Auto) 0.3 (0.1-1.2) X10*3/uL Eos # (Auto) 0.0 (0.0-0.4) X10*3/uL Baso # (Auto) 0.0 (0.0-0.2) X10*3/uL Abs Immat Gran (auto) 0.18 H (0.00-0.03) X10*3/uL Absolute Neuts (auto) 15.1 H (2.0-8.3) x10*3/uL Absolute Nucleated RBC 0.000 (0.0-0.012) X10*3/uL Nucleated RBC % (auto) 0.0 (0.0-0.2) /100WBC Smear Tech's Comments VERIFIED PT 12.4 (10.0-13.1) SEC INR 1.1 (0.9-1.1) Sodium 136 (135-145) mmol/L Potassium 4.4 (3.3-5.1) mmol/L Chloride 103 (96-108) mmol/L Carbon Dioxide 19 L (22-29) mmol/L Anion Gap 18 (12-20) BUN 12 (9-16) mg/dL Creatinine 0.85 (0.5-1.4) mg/dL Estim Creat Clear Calc 220.7 Estimated GFR > 60 Random Glucose 166 H (60-115) mg/dL Calcium 9.5 D (8.4-10.2) mg/dL Magnesium 1.7 (1.6-2.6) mg/dL Total Bilirubin 0.5 (0.0-1.0) mg/dL AST 15 (5-37) U/L ALT 20 (0-40) U/L Alkaline Phosphatase 46 (39-117) U/L Troponin I High Sens (<3.5-35.0) ng/L Total Protein 6.9 (6.5-8.0) g/dL Albumin 4.4 (3.5-5.0) g/dL Ethyl Alcohol < 10 mg/dL Influenza Type A (PCR) (Negative) Influenza Type B (PCR) (Negative) RSV RNA Qual (PCR) (Negative) SARS-CoV-2 RNA (RT-PCR) (Negative) 08/01/22 08/01/22 Range/Units 19:46 19:46 WBC (4.8-10.8) X10*3/uL RBC (4.60-5.80) X10*6/uL Hgb (14.0-18.0) g/dl Hct (42.0-52.0) % MCV (80.0-98.0) fL MCH (27.0-33.0) pg MCHC (31.0-36.0) g/dl RDW (11.0-16.0) % Plt Count (160-400) X10*3/uL MPV (9.4-12.4) fL Immature Gran % (Auto) (0.0-0.4) % Neut % (Auto) (45-73) % Lymph % (Auto) (20-40) % Simpson % (Auto) (2-11) % Eos % (Auto) (0-4) % Baso % (Auto) (0-2) % Lymph # (Auto) (1.2-4.9) X10*3/uL Simpson # (Auto) (0.1-1.2) X10*3/uL Eos # (Auto) (0.0-0.4) X10*3/uL Baso # (Auto) (0.0-0.2) X10*3/uL Abs Immat Gran (auto) (0.00-0.03) X10*3/uL Absolute Neuts (auto) (2.0-8.3) x10*3/uL Absolute Nucleated RBC (0.0-0.012) X10*3/uL Nucleated RBC % (auto) (0.0-0.2) /100WBC Smear Tech's Comments PT (10.0-13.1) SEC INR (0.9-1.1) Sodium (135-145) mmol/L Potassium (3.3-5.1) mmol/L Chloride (96-108) mmol/L Carbon Dioxide (22-29) mmol/L Anion Gap (12-20) BUN (9-16) mg/dL Creatinine (0.5-1.4) mg/dL Estim Creat Clear Calc Estimated GFR Random Glucose (60-115) mg/dL Calcium (8.4-10.2) mg/dL Magnesium (1.6-2.6) mg/dL Total Bilirubin (0.0-1.0) mg/dL AST (5-37) U/L ALT (0-40) U/L Alkaline Phosphatase (39-117) U/L Troponin I High Sens < 3.5 (<3.5-35.0) ng/L Total Protein (6.5-8.0) g/dL Albumin (3.5-5.0) g/dL Ethyl Alcohol mg/dL Influenza Type A (PCR) NEGATIVE (Negative) Influenza Type B (PCR) NEGATIVE (Negative) RSV RNA Qual (PCR) NEGATIVE (Negative) SARS-CoV-2 RNA (RT-PCR) NEGATIVE (Negative) <Praveen Phillip MD - Last Filed: 08/01/22 22:43> Independent Interpretation I performed an independent interpretation of an: EKG <Praveen Phillip MD - Last Filed: 08/01/22 22:43> Interpretation: Sinus rhythm with a rate of 97. No concerning ST elevation or depression. Possible left atrial enlargement. No ectopy. <Praveen Phillip MD - Last Filed: 08/01/22 22:43> Discharge Plan Discharge Clinical Impression: Cocaine abuse, Overdose <ROBIN Rutledge - Last Filed: 08/01/22 19:16> Patient Disposition: Home, Self-Care <ROBIN Rutledge - Last Filed: 08/01/22 19:16> Instructions: Cocaine Abuse (ED), Adult Overdose (ED) <ROBIN Rutledge - Last Filed: 08/01/22 19:16> Additional Instructions: Avoid taking street drugs as they can have unpredictable substances such as fentanyl which can lead to cessation of breathing and <ROBIN Rutledge - Last Filed: 08/01/22 19:16> Prescriptions: New naloxone [Narcan] 4 mg/actuation spray,non-aerosol 4 mg intranasal Q2M PRN (Reason: opioid overdose) Qty: 2 0RF Rx Instructions: spray 1 dose into ONE nostril; alternate nostrils w each dose until help arrives No Action fenofibrate 160 mg tablet 160 mg PO DAILY 90 Days Qty: 90 1RF albuterol sulfate [ProAir HFA] 90 mcg/actuation HFA aerosol inhaler 1 inh inhalation QID PRN (Reason: shortness of breath or wheezing) Qty: 6.7 0RF Anoro Ellipta 62.5-25 mcg/actuation blister with device 1 ea PO DAILY Qty: 60 8RF albuterol sulfate 2.5 mg /3 mL (0.083 %) solution for nebulization 2.5 mg inhalation TID Qty: 225 3RF indomethacin 50 mg capsule 50 mg PO BID 10 Days Qty: 20 1RF Rx Instructions: administer with food or milk folic acid 1 mg tablet 1 mg PO DAILY Qty: 30 11RF lisinopril 30 mg tablet 30 mg PO DAILY 90 Days Qty: 90 1RF (DME) Blood Pressure Cuff Misc See Rx Instructions .Route Qty: 1 0RF Rx Instructions: As directed nicotine 21 mg/24 hr patch 24 hour 1 patch transdermal DAILY 28 Days Qty: 28 0RF (DME) Shower Chair Misc See Rx Instructions .Route Qty: 1 0RF Rx Instructions: As directed (DME) Grab bar Misc See Rx Instructions .Route Qty: 1 0RF Rx Instructions: As directed carisoprodol 350 mg tablet 350 mg PO TID PRN (Reason: Muscle Pain) 30 Days Qty: 90 0RF pantoprazole 40 mg tablet,delayed release (DR/EC) 40 mg PO DAILY 90 Days Qty: 90 0RF oxcarbazepine 300 mg tablet 1 tab PO BID buspirone 10 mg tablet 1 tab PO TID clonazepam 2 mg tablet 1 tab PO BID zolpidem 10 mg tablet 1 tab PO BEDTIME PRN (Reason: Insomnia) prazosin 2 mg capsule 1 cap PO BID hydroxyzine pamoate 25 mg capsule 1 cap PO BID PRN (Reason: Anxiety) aripiprazole 10 mg tablet 1 tab PO QAM naloxone [Narcan] 4 mg/actuation spray,non-aerosol 4 mg intranasal Q2M PRN (Reason: opioid overdose) Qty: 2 0RF Rx Instructions: spray 1 dose into ONE nostril; alternate nostrils w each dose until help arrives cyanocobalamin (vitamin B-12) 1,000 mcg tablet extended release 1,000 mcg PO DAILY 90 Days Qty: 90 3RF cholecalciferol (vitamin D3) 25 mcg (1,000 unit) capsule 25 mcg PO DAILY 90 Days Qty: 90 1RF ibuprofen 800 mg tablet 800 mg PO Q8H 30 Days Qty: 90 3RF prednisone 10 mg tablet 10 mg PO DAILY 4 Days Qty: 4 0RF oxcarbazepine 600 mg tablet 600 mg PO BID melatonin 5 mg capsule 5 mg PO BEDTIME PRN (Reason: Insomnia) <ROBIN Rutledge - Last Filed: 08/01/22 19:16> Interventions: [place]-Suicide Risk Severity Scale Last Done: 08/01/22 20:52 ED Discharge Assessment Last Done: 08/01/22 22:34 <ROBIN Rutledge - Last Filed: 08/01/22 19:16> Discharge Date/Time: 08/01/22 22:35 <ROBIN Rutledge - Last Filed: 08/01/22 19:16>
--- NOTE | 2022-08-01 19:13 | ECG_ITS ---
Test Reason : OVERDOSED Blood Pressure : / mmHG Vent. Rate : 097 BPM Atrial Rate : 097 BPM P-R Int : 140 ms QRS Dur : 086 ms QT Int : 350 ms P-R-T Axes : 046 -13 049 degrees QTc Int : 444 ms Normal sinus rhythm Possible Left atrial enlargement Borderline ECG When compared with ECG of 27-JUL-2022 12:03, No significant change was found Referred By: Rashmi Verdugo Electronically Signed By:STANFORD ERICKSON
[2022-08-01 19:22] VITALS: BP 185/106; PULSE 96; RESP 16; TEMP 36.8; O2SAT 98
--- NOTE | 2022-08-01 19:23 | MHC.EDTECH ---
this pct assumed care of pt at 1920,pt was change into hospital attire ,vs taken i notice pt bp was high so i hooked up pt to monitor tech .
[2022-08-01 19:56] VITALS: BP 176/104; PULSE 95; RESP 20; TEMP 36.6; O2SAT 97
[2022-08-01 20:00] LABS: Basophils Percent Auto 0.2 % (0-2); Eosinophils Percent Auto 0.1 % (0-4); Hematocrit 39.4 % (42.0-52.0); Hemoglobin 13.1 g/dl (14.0-18.0); Imm Gran Abs Auto 0.18 X10*3/uL (0.00-0.03); Imm Gran Pct Auto 1.1 % (0.0-0.4); Lymphocytes Absolute Auto 0.9 X10*3/uL (1.2-4.9); Lymphocytes Percent Auto 5.4 % (20-40); MANUAL DIFF FLAG SCAN; Mean Corpuscular HGB Conc 33.2 g/dl (31.0-36.0); Mean Corpuscular Hemoglobin 30.1 pg (27.0-33.0); Mean Corpuscular Volume 90.6 fL (80.0-98.0); Mean Platelet Volume 10.5 fL (9.4-12.4); Monocytes Absolute Auto 0.3 X10*3/uL (0.1-1.2); Monocytes Percent Auto 2.1 % (2-11); Neutrophils Absolute Auto 15.1 x10*3/uL (2.0-8.3); Neutrophils Percent Auto 91.1 % (45-73); Platelet Count 215 X10*3/uL (160-400); Red Blood Count 4.35 X10*6/uL (4.60-5.80); SCAN SMEAR FLAG 1; White Blood Count 16.5 X10*3/uL (4.8-10.8)
[2022-08-01 20:29] LABS: INTERNATIONAL NORM RATIO 1.1 (0.9-1.1); Prothrombin Time 12.4 SEC (10.0-13.1)
[2022-08-01 20:31] LABS: Influenza A PCR NEGATIVE (Negative); Influenza B PCR NEGATIVE (Negative); Resp Syncy Virus RNA Qual PCR NEGATIVE (Negative); SARS COV2 PCR INHOUSE NEGATIVE (Negative)
[2022-08-01 20:46] LABS: SLIDE REVIEW VERIFIED
[2022-08-01 20:50] LABS: Troponin-I High Sensitivity < 3.5 ng/L (<3.5-35.0)
[2022-08-01 21:05] LABS: Alanine Aminotransferase 20 U/L (0-40); Albumin Level 4.4 g/dL (3.5-5.0); Alkaline Phosphatase 46 U/L (39-117); Anion Gap 18 (12-20); Aspartate Amino Transferase 15 U/L (5-37); Bilirubin Total 0.5 mg/dL (0.0-1.0); Blood Urea Nitrogen 12 mg/dL (9-16); Calcium 9.5 mg/dL (8.4-10.2); Carbon Dioxide 19 mmol/L (22-29); Chloride 103 mmol/L (96-108); Creatinine Clr Calc Pharmacy 220.7; Estimated Glomerular Filt Rate > 60; Ethanol < 10 mg/dL; Glucose Random 166 mg/dL (60-115); Magnesium 1.7 mg/dL (1.6-2.6); Potassium 4.4 mmol/L (3.3-5.1); Sodium 136 mmol/L (135-145); Total Protein 6.9 g/dL (6.5-8.0)
[2022-08-01 22:00] VITALS: BP 160/86; PULSE 74; RESP 16; TEMP 36.6; O2SAT 97
== END 2022-08-01 22:35 | disposition home or self-care (01) ==
PROVIDERS: Physician Assistant Medical; Emergency Provider Emergency Medicine
DX: T40.5X1A Poisoning by cocaine, accidental (unintentional), initial encounter (principal); R40.4 Transient alteration of awareness; Y92.9 Unspecified place or not applicable; F14.10 Cocaine abuse, uncomplicated; I10 Essential (primary) hypertension; Z79.899 Other long term (current) drug therapy; Z20.822 Contact with and (suspected) exposure to COVID-19
CPT/HCPCS: 0241U; 36415; 80053; 82077; 83735; 84484; 85025; 85610; 93005; 99285

== ENCOUNTER 2022-11-30 07:55 | Outpatient (REF) | payer OTHER, SELFPAY ==
[2022-11-30 08:09] LABS: MANUAL DIFF FLAG NO
[2022-11-30 08:51] LABS: Basophils Absolute Auto 0.1 X10*3/uL (0.0-0.2); Basophils Percent Auto 0.5 % (0-2); Eosinophils Absolute Auto 0.3 X10*3/uL (0.0-0.4); Eosinophils Percent Auto 3.3 % (0-4); Hematocrit 41.1 % (42.0-52.0); Hemoglobin 13.4 g/dl (14.0-18.0); Imm Gran Abs Auto 0.05 X10*3/uL (0.00-0.03); Imm Gran Pct Auto 0.5 % (0.0-0.4); Lymphocytes Absolute Auto 2.6 X10*3/uL (1.2-4.9); Lymphocytes Percent Auto 26.3 % (20-40); Mean Corpuscular HGB Conc 32.6 g/dl (31.0-36.0); Mean Corpuscular Hemoglobin 29.1 pg (27.0-33.0); Mean Corpuscular Volume 89.2 fL (80.0-98.0); Mean Platelet Volume 10.8 fL (9.4-12.4); Monocytes Absolute Auto 0.7 X10*3/uL (0.1-1.2); Monocytes Percent Auto 6.9 % (2-11); Neutrophils Absolute Auto 6.1 x10*3/uL (2.0-8.3); Neutrophils Percent Auto 62.5 % (45-73); Platelet Count 304 X10*3/uL (160-400); Red Blood Count 4.61 X10*6/uL (4.60-5.80); Red Cell Distribution Width 12.7 % (11.0-16.0); White Blood Count 9.7 X10*3/uL (4.8-10.8)
[2022-11-30 09:22] LABS: Estimated Average Glucose 126 mg/dL
[2022-11-30 09:37] LABS: Cholesterol 142 mg/dL; HDL Cholesterol 32 mg/dL; LDL Cholesterol Calculated 83 mg/dl; Triglycerides 136 mg/dL
[2022-11-30 10:13] LABS: Folate > 20.0 ng/mL (> or = 4.0); Prostate Specific Antigen 0.38 ng/mL (<0.05-4.0); TSH reflex Free T4 2.64 uIU/mL (0.32-4.0); Vitamin B12 322 pg/mL (200-900); Vitamin D 25-OH Total 11.6 ng/mL (>30)
== END 2022-11-30 07:56 | disposition home or self-care (01) ==
LOC: HO.LAB 07:55
PROVIDERS: PCP Internal Medicine; Visit Provider Nurse Practitioner Family
DX: I10 Essential (primary) hypertension (principal); E78.2 Mixed hyperlipidemia; R55 Syncope and collapse; Z12.5 Encounter for screening for malignant neoplasm of prostate
CPT/HCPCS: 36415; 80061; 82306; 82607; 82746; 83036; 84153; 84443; 85025

== ENCOUNTER 2023-02-21 19:48 | Emergency (ER) | payer OTHER, SELFPAY ==
[2023-02-21 19:51] VITALS: BP 185/106; PULSE 77; RESP 14; TEMP 37.1; O2SAT 99; BMI 36.6
--- NOTE | 2023-02-21 20:51 | ED.OVERDOSE ---
HPI - Overdose General Chief Complaint: Overdose Stated Complaint: Overdose Time Seen by Provider: 02/21/23 20:31 Source: patient and family Mode of arrival: ambulatory Limitations: no limitations History of Present Illness HPI Narrative: 52-year-old male with history of COPD, obesity, pernicious anemia, GERD, HTN, gout, history of pneumonia, HLD, weekly cocaine use who presents to the ER for evaluation of an unintentional drug overdose. Patient was using what he thought was cocaine today and shortly after developed nausea, vomiting, diaphoresis, not feeling well along with confusion. Patient was reportedly going in and out of consciousness. Narcan was administered by the patient at home x2 between 19:00 and 20:00. His mentation improved. Patient is feeling better. He states he got his cocaine from a new person this time. He denies any intentional found no or opiate use. MD complaint: accidental overdose Onset (ago): hour(s) Timing confirmed by: family member Associated symptoms: nausea/vomiting and lethargy Treatments Prior to Arrival: narcan Related Data Home Medications Medication Instructions Recorded Confirmed aripiprazole 10 mg tablet 1 tab PO QAM 08/25/20 11/30/22 buspirone 10 mg tablet 1 tab PO TID 08/25/20 11/30/22 clonazepam 2 mg tablet 1 tab PO BID 08/25/20 11/30/22 hydroxyzine pamoate 25 mg capsule 1 cap PO BID PRN Anxiety 08/25/20 11/30/22 oxcarbazepine 300 mg tablet 1 tab PO BID 08/25/20 11/30/22 prazosin 2 mg capsule 1 cap PO BID 08/25/20 11/30/22 zolpidem 10 mg tablet 1 tab PO BEDTIME PRN Insomnia 08/25/20 11/30/22 oxcarbazepine 600 mg tablet 600 mg PO BID 09/10/20 11/30/22 melatonin 5 mg capsule 5 mg PO BEDTIME PRN Insomnia 06/03/21 11/30/22 Previous Rx's Medication Instructions Recorded fenofibrate 160 mg tablet 160 mg PO DAILY 90 days #90 tabs 02/18/21 naloxone 4 mg/actuation nasal 4 mg intranasal Q2M PRN opioid 08/26/21 spray (Narcan) overdose #2 ea ibuprofen 800 mg tablet 800 mg PO Q8H 30 days #90 tabs 12/31/21 umeclidinium 62.5 mcg-vilanterol 1 ea PO DAILY #60 caps 02/18/22 25 mcg/actuation powdr for inhalation (Anoro Ellipta) albuterol sulfate 2.5 mg/3 mL 2.5 mg (3 mL) inhalation TID #225 05/05/22 (0.083 %) solution for nebulization mL Grab bar #1 ea 06/24/22 Shower Chair #1 ea 06/24/22 miscellaneous medical supply #1 ea 06/24/22 (Blood Pressure Cuff) naloxone 4 mg/actuation nasal 4 mg intranasal Q2M PRN opioid 08/01/22 spray (Narcan) overdose #2 ea blood pressure monitor (Blood #1 ea 08/06/22 Pressure Kit) cyanocobalamin (vitamin B-12) 1,000 mcg PO DAILY 90 days #90 tabs 08/06/22 1,000 mcg tablet,extended release lisinopril 40 mg tablet 40 mg PO DAILY #90 tabs 08/06/22 nicotine 21 mg/24 hr daily 1 patch transdermal DAILY 28 days 08/06/22 transdermal patch #28 ea pantoprazole 40 mg tablet,delayed 40 mg PO DAILY 90 days #90 tabs 11/12/22 release colchicine 0.6 mg tablet 0.6 mg PO DAILY 5 days #5 tabs 11/27/22 prednisone 10 mg tablet 10 mg PO DIRECTED 8 days #20 11/30/22 tabs cholecalciferol (vitamin D3) 50 50 mcg PO DAILY #90 tabs 12/10/22 mcg (2,000 unit) tablet carisoprodol 350 mg tablet 350 mg PO TID PRN Muscle Pain 30 02/11/23 days #90 tabs folic acid 1 mg tablet 1 mg PO DAILY #30 tabs 02/11/23 indomethacin 50 mg capsule 50 mg PO BID 10 days #20 caps 02/11/23 albuterol sulfate 90 mcg/actuation 2 puff inhalation Q4-6H PRN 02/19/23 aerosol inhaler (Ventolin HFA) shortness of breath or wheezing #8.5 grams Allergies Allergy/AdvReac Type Severity Reaction Status Date / Time bee stings Allergy Severe Anaphylaxis Verified 11/30/22 08:33 hydromorphone [From DILAUDID] AdvReac Severe VIOLENTLY Verified 11/30/22 08:33 ILL NEEDS TO EAT FIRST Review of Systems Review of Systems: Yes all other systems are reviewed and are negative [facility] Past Medical History Medical History COPD (chronic obstructive pulmonary disease) COVID-19 Essential hypertension GERD (gastroesophageal reflux disease) Gout History of pneumonia Hypoxemia Lactic acid acidosis Lumbar degenerative disc disease Lymphopenia Mixed hyperlipidemia Opioid overdose Pernicious anemia Positive colorectal cancer screening using Cologuard test Surgical History History of arthroscopy of left knee History of esophagogastroduodenoscopy (EGD) History of shoulder surgery History of surgery History of total left knee replacement Hx of colonoscopy Status post surgical removal of malignant neoplasm of skin Family History Family History Father Lung cancer Mother Chronic mental illness Alzheimer disease Maternal Grandmother Bone cancer Hypertension Paternal Grandmother Brain cancer Maternal Uncle Cancer Family/Other Chronic mental illness Substance use disorder Social History Social History Household Members: None and Other Household Members Other:: 2 room mates Housing: House Do you presently have visiting nurse or other home services: No Alcohol intake: current Alcohol intake frequency: a few times a week Patient Tobacco Use Status: Current everyday Tobacco user Tobacco use type: Cigarette Cigarette Packs Per Day: 1 Smoked in Last 30 Days: Yes e-Cigarette/Vaping Use: Never Used Second Hand Smoke Exposure: No Use of substances other than those prescribed or required for medical reasons: Yes Substance Use Type: Crack/Cocaine Advance Directives: No Advance Directives Information Provided: Yes service: No Current occupational status: unemployed and disabled Cognitive needs: No Hearing needs: No Vision needs: No Physical Exam Vital Signs: Vital Signs: Last Vital Signs Temp 98.7 F 02/21/23 19:51 Pulse 77 02/21/23 19:51 Resp 14 02/21/23 19:51 BP 185/106 H 02/21/23 19:51 Pulse Ox 99 02/21/23 19:51 O2 Del Method Room Air 02/21/23 19:51 BMI result Body Mass Index 36.6 Appearance: Sleeping comfortably, easily arouses to voice Oriented X3. No acute distress. Head: normocephalic, atraumatic. Eyes: Pupils equal, round and reactive to light. ENT: Pharynx normal. No tonsillar swelling or exudate. Neck: Normal inspection. Neck supple. CVS: Normal heart rate and rhythm. Pulses normal. Respiratory: No respiratory distress. Breath sounds normal. Abdomen: Soft and nontender. +BS x4 Skin: Skin warm and dry. Normal skin color. Normal skin turgor. No rashes. Extremities: No lower extremity edema. No joint swelling. Neuro/psych: Oriented X 3. No motor deficit. No sensory deficit. CN II-XII intact. Normal speech and cognition. Medical Decision Making Medical Decision Making MDM Narrative: 52-year-old male with history of weakly cocaine use presents the ER for evaluation of altered mentation, vomiting, diaphoresis and not feeling well after using what he thought was cocaine today. His symptoms improved after using Narcan. He is feeling better. He is sleepy but arouses to voice easily. He is protecting his airway. He denies any suicidal ideation or intent. He denies any need for rehab or detox. Does not want to see anyone from recovery. He was monitored in the emergency department for 2 hours. Patient counseled on new EKG changes, dangerousness of cocaine and recommendation to abstain. Recommended to follow up with Cardiology for further evaluation and treatment. Patient stable for d/c home. Differential Diagnosis Differential Diagnoses: The differential diagnosis associated with the presentation includes Unintentional opiate overdose, polysubstance abuse, intentional opiate overdose, metabolic encephalopathy, cocaine induced cardiomyopathy, CAD Admission/Observation Consideration of admission/observation: Escalation of care including admission/observation considered new EKG changes in a patient using cocaine, considered admission for stress test and monitoring Independent Interpretation I performed an independent interpretation of an: EKG Interpretation: EKG with normal sinus rhythm, ventricular rate 75 beats per minute, normal TN interval, normal QTC, T-wave inversions in V4 through V6, no ST segment elevations or depressions Independent Historian Clinical information obtained from an independent historian. History obtained from or confirmed by: Spouse External Record Review External record reviewed: Outpatient record, Prior outpatient labs and Prior outpatient radiology Tests considered The following testing was considered but not selected: Lab workup considered however he had no chest pain Prescription Management I considered prescription management with: Other (Narcan) Chronic Conditions Patient?s care impacted by: Hypertension and Other (Obesity) Critical Care Time Critical Care Time Critical Care Time: No Discharge Plan Discharge Clinical Impression: Acute electrocardiogram changes, Opioid overdose, Cocaine abuse Patient Disposition: Home, Self-Care Instructions: Cocaine Abuse (ED) Additional Instructions: Your EKG today showed some new changes when compared to prior. This may be due to cocaine use. Recommend abstaining from cocaine. Recommend following up with Cardiology for further evaluation and treatment. Call for an appointment, name and number below. Prescriptions: No Action fenofibrate 160 mg tablet 160 mg PO DAILY 90 Days Qty: 90 1RF Anoro Ellipta 62.5-25 mcg/actuation blister with device 1 ea PO DAILY Qty: 60 8RF albuterol sulfate 2.5 mg /3 mL (0.083 %) solution for nebulization 2.5 mg inhalation TID Qty: 225 3RF (DME) Blood Pressure Cuff Misc See Rx Instructions .Route Qty: 1 0RF Rx Instructions: As directed (DME) Shower Chair Misc See Rx Instructions .Route Qty: 1 0RF Rx Instructions: As directed (DME) Grab bar Misc See Rx Instructions .Route Qty: 1 0RF Rx Instructions: As directed pantoprazole 40 mg tablet,delayed release (DR/EC) 40 mg PO DAILY 90 Days Qty: 90 0RF colchicine 0.6 mg tablet 0.6 mg PO DAILY 5 Days Qty: 5 0RF cholecalciferol (vitamin D3) 50 mcg (2,000 unit) tablet 50 mcg PO DAILY Qty: 90 0RF carisoprodol 350 mg tablet 350 mg PO TID PRN (Reason: Muscle Pain) 30 Days Qty: 90 0RF indomethacin 50 mg capsule 50 mg PO BID 10 Days Qty: 20 1RF Rx Instructions: administer with food or milk folic acid 1 mg tablet 1 mg PO DAILY Qty: 30 11RF albuterol sulfate [Ventolin HFA] 90 mcg/actuation HFA aerosol inhaler 2 puff inhalation Q4-6H PRN (Reason: shortness of breath or wheezing) Qty: 8.5 5RF oxcarbazepine 300 mg tablet 1 tab PO BID buspirone 10 mg tablet 1 tab PO TID clonazepam 2 mg tablet 1 tab PO BID zolpidem 10 mg tablet 1 tab PO BEDTIME PRN (Reason: Insomnia) prazosin 2 mg capsule 1 cap PO BID hydroxyzine pamoate 25 mg capsule 1 cap PO BID PRN (Reason: Anxiety) aripiprazole 10 mg tablet 1 tab PO QAM naloxone [Narcan] 4 mg/actuation spray,non-aerosol 4 mg intranasal Q2M PRN (Reason: opioid overdose) Qty: 2 0RF Rx Instructions: spray 1 dose into ONE nostril; alternate nostrils w each dose until help arrives naloxone [Narcan] 4 mg/actuation spray,non-aerosol 4 mg intranasal Q2M PRN (Reason: opioid overdose) Qty: 2 0RF Rx Instructions: spray 1 dose into ONE nostril; alternate nostrils w each dose until help arrives ibuprofen 800 mg tablet 800 mg PO Q8H 30 Days Qty: 90 3RF cyanocobalamin (vitamin B-12) 1,000 mcg tablet extended release 1,000 mcg PO DAILY 90 Days Qty: 90 3RF nicotine 21 mg/24 hr patch 24 hour 1 patch transdermal DAILY 28 Days Qty: 28 0RF ([facility]) blood pressure monitor [Blood Pressure Kit] Kit See Rx Instructions .Route Qty: 1 0RF Rx Instructions: As directed lisinopril 40 mg tablet 40 mg PO DAILY Qty: 90 0RF prednisone 10 mg tablet 10 mg PO DIRECTED 8 Days Qty: 20 0RF Rx Instructions: Take 4 tabs the first 2 days, then 3 tabs the next 2 days, then 2 tabs the next 2 days, then 1 tab the next 2 days oxcarbazepine 600 mg tablet 600 mg PO BID melatonin 5 mg capsule 5 mg PO BEDTIME PRN (Reason: Insomnia) Referrals: [facility] [Provider Group] (T-wave inversions in lateral leads)
--- NOTE | 2023-02-21 20:51 | PC.NURSE ---
Pt unable to provide urine sample
[2023-02-21 21:56] VITALS: BP 174/96; PULSE 74; RESP 14; TEMP 37; O2SAT 93
== END 2023-02-21 21:58 | disposition home or self-care (01) ==
PROVIDERS: Emergency Provider Internal Medicine
DX: T40.1X1A Poisoning by heroin, accidental (unintentional), initial encounter (principal); T40.5X1A Poisoning by cocaine, accidental (unintentional), initial encounter; Y92.9 Unspecified place or not applicable; R11.2 Nausea with vomiting, unspecified; R94.31 Abnormal electrocardiogram [ECG] [EKG]; F14.10 Cocaine abuse, uncomplicated; F17.210 Nicotine dependence, cigarettes, uncomplicated; Z71.6 Tobacco abuse counseling; Z79.899 Other long term (current) drug therapy; Z71.51 Drug abuse counseling and surveillance of drug abuser
CPT/HCPCS: 93005; 99284; 99285

== ENCOUNTER → 2023-02-21 20:05 | Outpatient (BNV) | payer OTHER, SELFPAY | PROVIDERS: Emergency Provider Internal Medicine; Visit Provider Internal Medicine Cardiovascular Disease | DX: R94.31 Abnormal electrocardiogram [ECG] [EKG] (principal) | CPT/HCPCS: 93010 ==

== ENCOUNTER 2023-05-18 09:57 | Outpatient (AMB) | payer OTHER, SELFPAY ==
[2023-05-18 10:04] VITALS: BP 178/120; PULSE 72; O2SAT 96; BMI 34.7
--- NOTE | 2023-05-18 10:04 | MHC.PC.OV ---
Vital Signs 05/18/23 10:04 05/18/23 10:32 Height 6 ft Weight 256 lb BMI 34.7 BP 178/120 H 170/110 H Blood Pressure Location Lt brachial Lt brachial Position Sitting Sitting Pulse 72 Pulse Source Pulse Oximeter Temp Source Skin Pulse Oximetry (%) 96 Oxygen Delivery Method Room Air Intake Visit Reasons: BP follow up Intake Note: Patient is here to follow up on BP Retail Management Keyholder Required: No Allergies bee stings Allergy (Severe, Verified 05/18/23 10:32) Anaphylaxis hydromorphone [From DILAUDID] Adverse Reaction (Severe, Verified 05/18/23 10:32) VIOLENTLY ILL NEEDS TO EAT FIRST Medication List - Last Reconciled 05/18/23 by SILVER Sena albuterol sulfate 2.5 mg (3 mL) inhalation TID albuterol sulfate 90 mcg/actuation (Ventolin HFA) 2 puffs inhalation Q4-6H PRN aripiprazole 1 tab PO QAM blood pressure monitor (Blood Pressure Kit) As directed buspirone 1 tab PO TID carisoprodol 350 mg PO TID PRN 30 days cholecalciferol (vitamin D3) 50 mcg PO DAILY clonazepam 1 tab PO BID colchicine (gout) 0.6 mg PO DAILY 5 days cyanocobalamin (vitamin B-12) ER 1,000 mcg PO DAILY 90 days epinephrine 0.1 mg (0.1 mL) IM ONCE PRN 30 days fenofibrate 160 mg PO DAILY 90 days folic acid 1 mg PO DAILY Grab bar As directed hydroxyzine pamoate 1 cap PO BID PRN ibuprofen 800 mg PO Q8H 30 days indomethacin 50 mg PO BID 10 days lisinopril 40 mg PO DAILY melatonin 5 mg PO BEDTIME PRN miscellaneous medical supply (Blood Pressure Cuff) As directed naloxone 4 mg/actuation (Narcan) 4 mg intranasal Q2M PRN naloxone 4 mg/actuation (Narcan) 4 mg intranasal Q2M PRN nicotine 1 patch transdermal DAILY 28 days oxcarbazepine 1 tab PO BID oxcarbazepine 600 mg PO BID pantoprazole 40 mg PO DAILY 90 days prazosin 1 cap PO BID Shower Chair As directed umeclidinium-vilanterol 62.5-25 mcg/actuation (Anoro Ellipta) 1 ea PO DAILY zolpidem 1 tab PO BEDTIME PRN Tobacco use date assessed: 05/18/23 Dental Screening Dental Screen Date: 05/18/23 Did you have a dental visit in the last 12 months?: No Did you have a dental problem in the last 6 months where you did not have access to dental care?: No HPI HPI Comments History of Present Illness Details 53 old male past medical history significant for GERD, pernicious anemia, hypertension, gout, COPD, cocaine abuse and lumbar degenerative disc disease. Blood pressure elevated in office today 170/110, patient reports that he is having a lot of back pain today patient requesting refill on ibuprofen 800 mg for this, Rx sent. Patient denies any blurred vision but does report headaches. Denies any chest pain.Given diastolic blood pressure elevated 110 patient made aware that emergency medical attention would be recommended. Patient is aware elevated blood pressure puts him at increased risk for heart attack and stroke. Patient reports did take his 40 mg of lisinopril this morning. Will add amlodipine 5 mg daily in addition to lisinopril the patient will follow-up in 2 weeks for blood pressure recheck. Patient reports last use cocaine 1 week ago; states he is currently in the process of waiting for bed at a detox center. [facility] Medical History COPD (chronic obstructive pulmonary disease) COVID-19 Essential hypertension GERD (gastroesophageal reflux disease) Gout History of pneumonia Hypoxemia Lactic acid acidosis Lumbar degenerative disc disease Lymphopenia Mixed hyperlipidemia Opioid overdose Pernicious anemia Positive colorectal cancer screening using Cologuard test Surgical History History of arthroscopy of left knee History of esophagogastroduodenoscopy (EGD) History of shoulder surgery History of surgery History of total left knee replacement Hx of colonoscopy Status post surgical removal of malignant neoplasm of skin Family History Father Lung cancer Mother Chronic mental illness Alzheimer disease Maternal Grandmother Bone cancer Hypertension Paternal Grandmother Brain cancer Maternal Uncle Cancer Family/Other Chronic mental illness Substance use disorder Social History Household Members: None and Other Household Members Other:: 2 room mates Housing: House Do you presently have visiting nurse or other home services: No Alcohol intake: current Alcohol intake frequency: a few times a week Patient Tobacco Use Status: Current everyday Tobacco user Tobacco use type: Cigarette Cigarette Packs Per Day: 1 e-Cigarette/Vaping Use: Never Used Second Hand Smoke Exposure: No Substance Use Type: Crack/Cocaine service: No Current occupational status: unemployed and disabled Cognitive needs: No Hearing needs: No Vision needs: No Questionnaire Thrive Questionnaire Date Thrive assessed: 08/06/22 AUDIT C Alcohol Use Questionnaire (AUDIT-C) 1. How often do you have a drink containing alcohol?: Never 2. How many drinks containing alcohol do you have on a typical day when you are drinking?: 1 or 2 (0) 3. How often do you have six or more drinks on one occasion?: Never Total Score: 0 Score Reviewed/Action Taken: No EN-7 AMB Questionnaire EN-7 Date EN - 7 assessed: 11/30/22 Source: Developed by Drs. Shabbir Barreto, Stella Hammer, John Garcia and colleagues, with an educational herbert from [employer]. Review of Systems Const Denies chills, Denies fatigue, Denies fever(s) and Denies poor appetite Eyes Denies no additional complaints ENT Reports Normal hearing present Card Denies chest pain, Denies syncope, Denies rapid heart rate and Denies dyspnea Resp Denies cough and Denies dyspnea GI Denies change in stool character, Denies constipation, Denies diarrhea, Denies nausea and Denies vomiting Denies dysuria, Denies urinary frequency and Denies urinary urgency Neuro Reports Normal hearing present, Denies confusion and Denies syncope Psych Denies confusion Endo Denies fatigue Physical exam (Primary Care) Vital Signs: Last Vital Signs Pulse 72 05/18/23 10:04 BP 170/110 H 05/18/23 10:32 Pulse Ox 96 05/18/23 10:04 Oxygen Delivery Method Room Air 05/18/23 10:04 BMI result Body Mass Index 34.7 Tobacco/Smoking Status: Tobacco use Status Tobacco use date assessed 05/18/23 05/18/23 10:11 Patient Tobacco Use Status Current everyday Tobacco 05/18/23 10:11 Tobacco use type Cigarette 05/18/23 10:11 e-Cigarette/Vaping Use Never Used 05/18/23 10:11 Thrive Assessment: Date of Thrive Assessment Date Thrive assessed 08/06/22 05/18/23 10:11 Const General: No confusion Orientation/consciousness: No confusion HENMT Head: Yes normocephalic and Yes atraumatic Eyes Conjunctivae: conjunctivae normal Chest Chest palpation & inspection: normal inspection of the chest Resp Effort & Inspection: normal respiratory effort Auscultation: clear to auscultation bilaterally, no crackles, no rhonchi and no wheezes Cardio Rate: regular rate Rhythm: regular rhythm Heart sounds: S1 normal heart sound present and S2 normal heart sound present GI Inspection: Yes normal to inspection Neuro General: No confusion Cranial nerves: Yes Normal hearing present Extrem General: No edema Office Procedures Flu Questionnaire Does the patient have a severe egg allergy?: No Does the patient have severe life threatening allergies?: No Does the patient have a fever or illness today?: No Has the patient ever had Guillain-[place] Syndrome?: No Has the patient ever had any past reaction to a flu shot?: No Immunizations flu vacc [id number] 6mos up(PF) 60 mcg(15 mcgx4)/0.5 mL IM syringe Performing Provider: SILVER Sena [facility] Documented (not given) by: LILIYA Arreaga on 05/18/23 10:12 Reason Not Given: Patient Refused Assessment and Plan Assessment & Plan (1) Cocaine abuse: Code(s): F14.10 - Cocaine abuse, uncomplicated Plan: Strongly advised to stop. Patient currently in the process of waiting for bed at [facility] (2) Essential hypertension: Code(s): I10 - Essential (primary) hypertension Plan: Given patient's blood pressure elevated today in the 170s/110, continue on lisinopril 40 mg daily and will add amlodipine 5 mg daily in addition. Patient advised to follow low-salt diet and exercise. Follow-up in 2 weeks for blood pressure recheck. Signs and symptoms reviewed with patient when to seek emergency medical attention. (3) Lumbar degenerative disc disease: Code(s): M51.36 - Other intervertebral disc degeneration, lumbar region Plan: Can take ibuprofen as needed for pain. (4) COPD (chronic obstructive pulmonary disease): Comment: exacerbation 08/27/20 Code(s): J44.9 - Chronic obstructive pulmonary disease, unspecified Plan: Continue on Ventolin as needed. Plan Follow-up in 2 weeks with navigation nurse for blood pressure recheck. Keep scheduled physical exam in 3 months with PCP. Orders: Orders Influenza [id number] Immunization Today Z23 - Encounter for immunization Medications: New amlodipine 5 mg PO DAILY 30 tabs 3RF Refilled ibuprofen 800 mg PO Q8H 30 days 90 tabs 3RF M51.36 - Other intervertebral disc degeneration, lumbar region Coding Level of Care Code Est Pt Level 4 (03539) Diagnoses Cocaine abuse F14.10 Essential hypertension I10 Lumbar degenerative disc disease M51.36 COPD (chronic obstructive pulmonary disease) J44.9
[2023-05-18 10:32] VITALS: BP 170/110
== END 2023-05-18 10:33 | disposition home or self-care (01) ==
PROVIDERS: PCP Internal Medicine; Visit Provider Nurse Practitioner Family
DX: I10 Essential (primary) hypertension (principal); F14.10 Cocaine abuse, uncomplicated; J44.9 Chronic obstructive pulmonary disease, unspecified; M51.36 Other intervertebral disc degeneration, lumbar region
CPT/HCPCS: 99214

== ENCOUNTER 2023-08-18 08:15 | Outpatient (AMB) | payer OTHER, SELFPAY ==
--- NOTE | 2023-08-18 08:20 | A.OFFPC_ITS ---
Vital Signs 08/18/23 08:24 08/18/23 09:16 Height 6 ft Weight 264 lb BMI 35.8 BP 168/106 H 170/100 H Blood Pressure Location Lt brachial Lt brachial Position Sitting Sitting Intake Visit Reasons: Annual exam Intake Note: Patient here for an annual physical exam Director Counseling Bureau Required: No Accompanied by: Self / Same As Patient Allergies bee stings Allergy (Severe, Verified 08/18/23 08:36) Anaphylaxis hydromorphone [From DILAUDID] Adverse Reaction (Severe, Verified 08/18/23 08:36) VIOLENTLY ILL NEEDS TO EAT FIRST Medication List - Last Reconciled 08/18/23 by Yulissa Keyes MD albuterol sulfate 90 mcg/actuation (Ventolin HFA) 2 puffs inhalation Q4-6H PRN albuterol sulfate 2.5 mg (3 mL) inhalation TID amlodipine 5 mg PO DAILY aripiprazole 1 tab PO QAM blood pressure monitor (Blood Pressure Kit) As directed buspirone 1 tab PO TID carisoprodol 350 mg PO TID PRN 30 days cholecalciferol (vitamin D3) 50 mcg PO DAILY clonazepam 1 tab PO BID colchicine 0.6 mg PO DAILY 5 days cyanocobalamin (vitamin B-12) ER 1,000 mcg PO DAILY 90 days epinephrine 0.1 mg (0.1 mL) IM ONCE PRN 30 days fenofibrate 160 mg PO DAILY 90 days folic acid 1 mg PO DAILY Grab bar As directed [hand rails As directed] hydroxyzine pamoate 1 cap PO BID PRN ibuprofen 800 mg PO Q8H 30 days indomethacin 50 mg PO BID 10 days lisinopril 40 mg PO DAILY melatonin 5 mg PO BEDTIME PRN miscellaneous medical supply (Blood Pressure Cuff) As directed naloxone 4 mg/actuation (Narcan) 4 mg intranasal Q2M PRN naloxone 4 mg/actuation (Narcan) 4 mg intranasal Q2M PRN nicotine 1 patch transdermal DAILY 28 days oxcarbazepine 1 tab PO BID oxcarbazepine 600 mg PO BID pantoprazole 40 mg PO DAILY 90 days prazosin 1 cap PO BID Shower Chair As directed umeclidinium-vilanterol 62.5-25 mcg/actuation (Anoro Ellipta) 1 ea PO DAILY zolpidem 1 tab PO BEDTIME PRN Tobacco use date assessed: 08/18/23 Dental Screening Dental Screen Date: 08/18/23 Did you have a dental visit in the last 12 months?: No Did you have a dental problem in the last 6 months where you did not have access to dental care?: No Was dental information given to patient?: Patient has dentist HPI HPI Comments History of Present Illness Details This is a 53-year-old male with COPD that comes for his physical exam. COPD has been stable with Anoro and will be referred for follow-up to pulmonology. Last colonoscopy was 2020 showing tubular adenoma and next colonoscopy should be 2023. Walks with a cane for gait stability due to chronic low back pain that has been stable with Soma. No chest pain or shortness of breath. He is obese with a BMI of 35.8 and was advised to diet and exercise as tolerated to reach BMI goal less than 30. Blood pressure elevated today and he did took amlodipine but not lisinopril yet. Blood pressure will be recheck in 3 weeks by nurse navigator. [facility] Medical History (Updated 08/18/23 @ 09:17 by Yulissa Keyes MD) Cocaine abuse Lactic acid acidosis Hypoxemia Opioid overdose COVID-19 COPD (chronic obstructive pulmonary disease) History of pneumonia Positive colorectal cancer screening using Cologuard test Gout Essential hypertension Lymphopenia Mixed hyperlipidemia Pernicious anemia Lumbar degenerative disc disease GERD (gastroesophageal reflux disease) Surgical History Hx of colonoscopy History of esophagogastroduodenoscopy (EGD) History of surgery Status post surgical removal of malignant neoplasm of skin History of shoulder surgery History of arthroscopy of left knee History of total left knee replacement Family History (Updated 08/18/23 @ 08:41 by Yulissa Keyes MD) Father Lung cancer Mother Chronic mental illness Alzheimer disease Maternal Grandmother Bone cancer Hypertension Paternal Grandmother Brain cancer Maternal Uncle Cancer Family/Other Chronic mental illness Substance use disorder Social History Household Members: None and Other Household Members Other:: 2 room mates Housing: House Do you presently have visiting nurse or other home services: No Alcohol intake: former Patient Tobacco Use Status: Current everyday Tobacco user Tobacco use type: Cigarette Cigarettes Per Day: 10 e-Cigarette/Vaping Use: Never Used Second Hand Smoke Exposure: No Substance Use Type: Crack/Cocaine service: No Current occupational status: unemployed and disabled Cognitive needs: No Hearing needs: No Vision needs: No Questionnaire PHQ-9 Over the last 2 weeks, how often have you been bothered by any of the following problems? 1. Little interest or pleasure in doing things: not at all 2. Feeling down, depressed, or hopeless: not at all 3. Trouble falling or staying asleep, or sleeping too much: not at all 4. Feeling tired or having little energy: not at all 5. Poor appetite or overeating: not at all 6. Feeling bad about yourself - or that you are a failure or have let yourself or your family down: not at all 7. Trouble concentrating on things, such as reading the newspaper or watching television: not at all 8. Moving or speaking so slowly that other people could have noticed. Or the opposite - being so fidgety or restless that you have been moving around a lot more than usual: not at all 9. Thoughts that you would be better off or of hurting yourself in some way: not at all Total score: 0 Depression Screening Interpretation: Negative Depression Screening Done: Yes 92714 - PHQ-9 Billing: Yes Source: Developed by Drs. Shabbir Barreto, Stella Hammer, John Garcia and colleagues, with an educational herbert from [employer]. Thrive Questionnaire Date Thrive assessed: 08/18/23 I am a: Patient What is your living situation today?: I have a steady place to live Within the past 12 months, did the food you bought not last and you didn't have the money to get more?: Never true Within the past 12 months, did you worry whether your food would run out before you got money to buy more?: Never true Do you have trouble paying for medicines?: No Do you have trouble getting transportation to medical appointments?: No Do you have trouble paying your heating and electricity bill?: No Do you have trouble taking care of your child, family member or friend?: No Do you have trouble with day-to-day activities such as bathing, preparing meals, shopping, managing finances, etc.?: No Are you currently unemployed and looking for a job?: No Are you interested in more education?: No Please select the resources that you would like help with: None Currently or been in a relationship where the following occur: no concerns reported AUDIT C Alcohol Use Questionnaire (AUDIT-C) 1. How often do you have a drink containing alcohol?: Never Total Score: 0 Score Reviewed/Action Taken: No EN-7 AMB Questionnaire EN-7 Date EN - 7 assessed: 08/18/23 Feeling nervous, anxious, or on edge: 0 = Not at all Not being able to stop or control worryin = Not at all Worrying too much about different things: 0 = Not at all Trouble relaxin = Not at all Being so restless that it is hard to sit still: 0 = Not at all Becoming easily annoyed or irritable: 0 = Not at all Feeling afraid as if something awful might happen: 0 = Not at all Total EN-7 score (0-4 normal; 5-9 mild; 10-14 moderate; 15-21 severe): 0 Source: Developed by Drs. Shabbir Barreto, Stella Hammer, John Garcia and colleagues, with an educational herbert from [employer]. EN-7 Assessment Billing EN-7 Assessment Tool: EN-7 Assessment 53310 Review of Systems Const All systems reviewed & are unremarkable except as noted in HPI and below Eyes Reports no additional complaints, Denies change in vision and Denies other visual disturbances Card Denies chest pain at rest, Denies chest pain with activity, Denies edema, Denies irregular heart rhythm, Denies claudication, Denies dyspnea, Denies dyspnea on exertion, Denies orthopnea, Denies paroxysmal nocturnal dyspnea and Denies slow heart rate Resp Denies cough, Denies dyspnea and Denies dyspnea on exertion GI Denies abdominal pain, Denies change in bowel habits, Denies excessive flatus, Denies nausea and Denies vomiting Denies urinary hesitancy, Denies urinary incontinence and Denies urinary urgency Musc Denies abnormal gait, Denies atrophy, Denies deformity and Denies limited range of motion Skin/Breast Denies bleeding lesions, Denies changing lesions and Denies rash Neuro Denies abnormal gait, Denies behavioral changes, Denies confusion and Denies lack of coordination Psych Denies behavioral changes and Denies confusion Physical exam (Primary Care) Vital Signs: Last Vital Signs BP 168/106 H 08/18/23 08:24 BMI result Body Mass Index 35.8 Tobacco/Smoking Status: Tobacco use Status Tobacco use date assessed 08/18/23 08/18/23 08:30 Patient Tobacco Use Status Current everyday Tobacco 08/18/23 08:30 Tobacco use type Cigarette 08/18/23 08:30 e-Cigarette/Vaping Use Never Used 08/18/23 08:30 PHQ-9: PHQ-9 Score PHQ-9: Total score 0 08/18/23 08:43 Depression Screening Interpretation: Negative Thrive Assessment: Date of Thrive Assessment Date Thrive assessed 08/18/23 08/18/23 08:30 Currently or been in a relationship where the following occur: no concerns reported Const General: No confusion Orientation/consciousness: patient oriented x3 and No confusion HENMT Head: Yes normal to inspection, Yes normocephalic and Yes atraumatic Ears: external ears normal Eyes General: appearance normal, both eyes and all related structures Eyelids: Yes eyelids normal Conjunctivae: conjunctivae normal Neck Neck: Yes normal visual inspection and Yes supple Resp Effort & Inspection: normal respiratory effort Auscultation: clear to auscultation bilaterally Cardio Jugular venous distension: no JVD Rate: regular rate Rhythm: regular rhythm Heart sounds: S1 normal heart sound present and S2 normal heart sound present GI Inspection: Yes normal to inspection Palpation (GI): Soft to palpation and nontender Auscultation: normal bowel sounds Skin General skin exam: no rashes or lesions noted Neuro General: patient oriented x3, no focal motor deficits and No confusion Extrem General: Yes full ROM Psych Appearance: grossly normal Assessment and Plan Assessment & Plan (1) Adult general medical exam: Code(s): Z00.00 - Encounter for general adult medical examination without abnormal findings Plan: Repeat in a year. (2) COPD (chronic obstructive pulmonary disease): Comment: exacerbation 08/27/20 Code(s): J44.9 - Chronic obstructive pulmonary disease, unspecified Plan: Continue Anoro. Use rescue inhaler as needed. Referred to pulmonology. Orders: Orders Lipid Panel Today E78.5 - Hyperlipidemia, unspecified Comprehensive [place]. Panel Fast Today I10 - Essential (primary) hypertension Uric Acid Today M10.9 - Gout, unspecified Complete Blood Count Auto Diff Today E66.9 - Obesity, unspecified Vitamin B12 and Folate Today E53.8 - Deficiency of other specified B group vitamins Vitamin D 25-OH Total Today E55.9 - Vitamin D deficiency, unspecified Referrals Pulmonology Referral J44.9 - Chronic obstructive pulmonary disease, unspecified Gastroenterology Referral D12.6 - Benign neoplasm of colon, unspecified Coding Level of Care Code Est Pt Prev Care 40-64y(28649) Diagnoses Adult general medical exam Z00.00 COPD (chronic obstructive pulmonary disease) J44.9 Additional Codes EN-7 Assessment Billing - EN-7 Assessment Tool: EN-7 Assessment 17407 ([id number]) Time Spent (min) 32
[2023-08-18 08:24] VITALS: BP 168/106; BMI 35.8
[2023-08-18 09:16] VITALS: BP 170/100
== END 2023-08-18 08:47 | disposition home or self-care (01) ==
PROVIDERS: Visit Provider Internal Medicine
DX: Z00.00 Encounter for general adult medical examination without abnormal findings (principal); J44.9 Chronic obstructive pulmonary disease, unspecified; Z87.01 Personal history of pneumonia (recurrent)
CPT/HCPCS: 99396

== ENCOUNTER 2023-09-29 11:02 | Outpatient (REF) | payer OTHER, SELFPAY ==
[2023-09-29 11:26] LABS: MANUAL DIFF FLAG NO
[2023-09-29 11:59] LABS: Basophils Percent Auto 0.3 % (0-2); Eosinophils Absolute Auto 0.3 X10*3/uL (0.0-0.4); Eosinophils Percent Auto 2.6 % (0-4); Hematocrit 40.4 % (42.0-52.0); Hemoglobin 13.6 g/dl (14.0-18.0); Imm Gran Abs Auto 0.07 X10*3/uL (0.00-0.03); Imm Gran Pct Auto 0.7 % (0.0-0.4); Lymphocytes Absolute Auto 1.9 X10*3/uL (1.2-4.9); Lymphocytes Percent Auto 19.8 % (20-40); Mean Corpuscular HGB Conc 33.7 g/dl (31.0-36.0); Mean Corpuscular Hemoglobin 29.5 pg (27.0-33.0); Mean Corpuscular Volume 87.6 fL (80.0-98.0); Mean Platelet Volume 11.2 fL (9.4-12.4); Monocytes Absolute Auto 0.6 X10*3/uL (0.1-1.2); Monocytes Percent Auto 5.7 % (2-11); Neutrophils Absolute Auto 6.9 x10*3/uL (2.0-8.3); Neutrophils Percent Auto 70.9 % (45-73); Platelet Count 236 X10*3/uL (160-400); Red Blood Count 4.61 X10*6/uL (4.60-5.80); Red Cell Distribution Width 13.1 % (11.0-16.0); White Blood Count 9.8 X10*3/uL (4.8-10.8)
[2023-09-29 12:46] LABS: Alanine Aminotransferase 17 U/L (0-40); Albumin Level 4.2 g/dL (3.5-5.0); Alkaline Phosphatase 52 U/L (39-117); Anion Gap 13 (12-20); Aspartate Amino Transferase 11 U/L (5-37); Bilirubin Total 0.3 mg/dL (0.0-1.0); Blood Urea Nitrogen 15 mg/dL (9-16); Calcium 9.5 mg/dL (8.4-10.2); Carbon Dioxide 26 mmol/L (22-29); Chloride 105 mmol/L (96-108); Cholesterol 169 mg/dL (<200); Estimated Glomerular Filt Rate > 60; Glucose Fasting 97 mg/dL (60-99); HDL Cholesterol 45 mg/dL (>40); LDL Cholesterol Calculated 100 mg/dL (<100); Potassium 3.8 mmol/L (3.3-5.1); Sodium 140 mmol/L (135-145); Total Protein 7.4 g/dL (6.5-8.0); Triglycerides 120 mg/dL (<150); Uric Acid 7.6 mg/dL (3.4-7.0); Vitamin D 25-OH Total 10.9 ng/mL (>30)
[2023-09-29 12:55] LABS: Folate 11.6 ng/mL (> or = 4.0); Vitamin B12 272 pg/mL (200-900)
== END 2023-09-29 11:03 | disposition home or self-care (01) ==
LOC: HO.LAB 11:02
PROVIDERS: Visit Provider Internal Medicine
DX: E78.5 Hyperlipidemia, unspecified (principal); E55.9 Vitamin D deficiency, unspecified; E53.8 Deficiency of other specified B group vitamins; M10.9 Gout, unspecified; I10 Essential (primary) hypertension; E66.9 Obesity, unspecified
CPT/HCPCS: 36415; 80053; 80061; 82306; 82607; 82746; 84550; 85025

== ENCOUNTER 2023-09-29 11:38 | Emergency (ER) | payer OTHER, SELFPAY ==
--- NOTE | ~2023-09-29 | XR_ITS ---
EXAMINATION: XR CHEST CLINICAL INFORMATION: Chest pain COMPARISON: 07/27/2022 TECHNIQUE: Frontal view of the chest was obtained. FINDINGS: Minor interstitial infiltrates at the lung bases could reflect early pneumonia or less likely edema. Heart size is borderline with normal caliber pulmonary vessels. Cardiac monitoring leads are present. XR/XR chest 1V IMPRESSION: Query early bibasilar pneumonia.
--- NOTE | 2023-09-29 11:46 | ECG_ITS ---
Test Reason : syncope Blood Pressure : / mmHG Vent. Rate : 085 BPM Atrial Rate : 085 BPM P-R Int : 140 ms QRS Dur : 092 ms QT Int : 376 ms P-R-T Axes : 025 -45 097 degrees QTc Int : 447 ms Normal sinus rhythm Possible Left atrial enlargement Left anterior fascicular block Left ventricular hypertrophy with repolarization abnormality ( R in aVL , [place] product ) Cannot rule out Inferior infarct (masked by fascicular block?) , age undetermined Abnormal ECG When compared with ECG of 21-FEB-2023 20:06, T wave inversion less evident in Lateral leads Referred By: Generic ED Physician Electronically Signed By:Demian Hsu
[2023-09-29 11:50] VITALS: BP 172/107; PULSE 88; RESP 21; TEMP 37; O2SAT 95; BMI 34.7
[2023-09-29 11:59] LABS: Glucose, Whole Blood 95 mg/dL (60-115)
--- NOTE | 2023-09-29 12:36 | ED_ITS ---
HPI - Chest Pain General Chief Complaint: Chest Pain Stated Complaint: CP Time Seen by Provider: 09/29/23 11:52 History of Present Illness HPI narrative: Patient is a 53-year-old male was fasting for his lab work. Presented today with having dizziness and chest pain while at the lab. Never had syncopal episode. Patient denies any fever chills. Minimal coughing. Patient complaining of pain that is fairly constant. Tingling sensation that is throughout. Did not eat at all this morning. He claims he did take his medication. No fever no chills. Positive history of hypertension. Positive history of smoking. Positive history of myocardial infarction greater than 5 years ago. No stent was placed. No history of high cholesterol no history of diabetes no history of blood clots in the past no leg swelling. No long distance travel. No syncopal episode Related Data Home Medications Medication Instructions Recorded Confirmed aripiprazole 10 mg tablet 1 tab PO QAM 08/25/20 08/18/23 buspirone 10 mg tablet 1 tab PO TID 08/25/20 08/18/23 clonazepam 2 mg tablet 1 tab PO BID 08/25/20 08/18/23 hydroxyzine pamoate 25 mg capsule 1 cap PO BID PRN Anxiety 08/25/20 08/18/23 oxcarbazepine 300 mg tablet 1 tab PO BID 08/25/20 08/18/23 prazosin 2 mg capsule 1 cap PO BID 08/25/20 08/18/23 zolpidem 10 mg tablet 1 tab PO BEDTIME PRN Insomnia 08/25/20 08/18/23 oxcarbazepine 600 mg tablet 600 mg PO BID 09/10/20 08/18/23 melatonin 5 mg capsule 5 mg PO BEDTIME PRN Insomnia 06/03/21 08/18/23 Previous Rx's Medication Instructions Recorded fenofibrate 160 mg tablet 160 mg PO DAILY 90 days #90 tabs 02/18/21 naloxone 4 mg/actuation nasal 4 mg intranasal Q2M PRN opioid 08/26/21 spray (Narcan) overdose #2 ea umeclidinium 62.5 mcg-vilanterol 1 ea PO DAILY #60 caps 02/18/22 25 mcg/actuation powdr for inhalation (Anoro Ellipta) Grab bar #1 ea 06/24/22 miscellaneous medical supply #1 ea 06/24/22 (Blood Pressure Cuff) naloxone 4 mg/actuation nasal 4 mg intranasal Q2M PRN opioid 08/01/22 spray (Narcan) overdose #2 ea blood pressure monitor (Blood #1 ea 08/06/22 Pressure Kit) cyanocobalamin (vitamin B-12) 1,000 mcg PO DAILY 90 days #90 tabs 08/06/22 1,000 mcg tablet,extended release nicotine 21 mg/24 hr daily 1 patch transdermal DAILY 28 days 08/06/22 transdermal patch #28 ea colchicine 0.6 mg tablet 0.6 mg PO DAILY 5 days #5 tabs 11/27/22 cholecalciferol (vitamin D3) 50 50 mcg PO DAILY #90 tabs 12/10/22 mcg (2,000 unit) tablet indomethacin 50 mg capsule 50 mg PO BID 10 days #20 caps 02/11/23 epinephrine 0.1 mg/0.1 mL 0.1 mg (0.1 mL) IM ONCE PRN 04/20/23 injection, auto-injector hypersensitivity reaction 30 days #3 ea ibuprofen 800 mg tablet 800 mg PO Q8H 30 days #90 tabs 05/18/23 Shower Chair #1 ea 06/29/23 hand rails #1 ea 06/29/23 folic acid 1 mg tablet 1 mg PO DAILY #30 tabs 06/30/23 lisinopril 40 mg tablet 40 mg PO DAILY #90 tabs 06/30/23 albuterol sulfate 2.5 mg/3 mL 2.5 mg (3 mL) inhalation TID #225 07/01/23 (0.083 %) solution for nebulization mL albuterol sulfate 90 mcg/actuation 2 puff inhalation Q4-6H PRN 09/13/23 aerosol inhaler (Ventolin HFA) shortness of breath or wheezing #8.5 grams amlodipine 5 mg tablet 5 mg PO DAILY #30 tabs 09/13/23 carisoprodol 350 mg tablet 350 mg PO TID PRN Muscle Pain 30 09/13/23 days #90 tabs pantoprazole 40 mg tablet,delayed 40 mg PO DAILY 90 days #90 tabs 09/13/23 release Allergies Allergy/AdvReac Type Severity Reaction Status Date / Time bee stings Allergy Severe Anaphylaxis Verified 09/29/23 11:50 hydromorphone [From DILAUDID] AdvReac Severe VIOLENTLY Verified 09/29/23 11:50 ILL NEEDS TO EAT FIRST Review of Systems 2 Review of Systems: Positive chest pain Yes all other systems are reviewed and are negative [facility] Past Medical History Attestation statement: The following information was validated with the patient. Medical History Cocaine abuse Lactic acid acidosis Hypoxemia Opioid overdose COVID-19 COPD (chronic obstructive pulmonary disease) History of pneumonia Positive colorectal cancer screening using Cologuard test Gout Essential hypertension Lymphopenia Mixed hyperlipidemia Pernicious anemia Lumbar degenerative disc disease GERD (gastroesophageal reflux disease) Surgical History Hx of colonoscopy History of esophagogastroduodenoscopy (EGD) History of surgery Status post surgical removal of malignant neoplasm of skin History of shoulder surgery History of arthroscopy of left knee History of total left knee replacement Family History Family History Father Lung cancer Mother Chronic mental illness Alzheimer disease Maternal Grandmother Bone cancer Hypertension Paternal Grandmother Brain cancer Maternal Uncle Cancer Family/Other Chronic mental illness Substance use disorder Social History Social History Household Members: None and Other Household Members Other:: 2 room mates Housing: House Do you presently have visiting nurse or other home services: No Alcohol intake: former Patient Tobacco Use Status: Current everyday Tobacco user Tobacco use type: Cigarette Cigarettes Per Day: 10 Smoked in Last 30 Days: No e-Cigarette/Vaping Use: Never Used Second Hand Smoke Exposure: No Use of substances other than those prescribed or required for medical reasons: No Substance Use Type: Crack/Cocaine Advance Directives: No Advance Directives Information Provided: No service: No Current occupational status: unemployed and disabled Cognitive needs: No Hearing needs: No Vision needs: No Physical Exam 2 Vital Signs: Vital Signs: Last Vital Signs Temp 98.6 F 09/29/23 11:50 Pulse 88 09/29/23 11:50 Resp 21 H 09/29/23 11:50 BP 172/107 H 09/29/23 11:50 Pulse Ox 95 09/29/23 11:50 O2 Del Method Room Air 09/29/23 11:50 BMI result Body Mass Index 34.7 Appearance: Alert. Oriented X3. No acute distress. Eyes: Pupils equal, round and reactive to light. ENT: Pharynx normal. Neck: Normal inspection. Neck supple. No lymph nodes noted. No crepitus CVS: Normal heart rate and rhythm. Pulses normal. Normal S1 and S2 Respiratory: No respiratory distress. Breath sounds normal. No Wheezing. No rales Abdomen: Soft and nontender. No rigidity. No distention. good BS x4 Skin: Skin warm and dry. Normal skin color. Normal skin turgor. Extremities: No lower extremity edema. Neurovascular intact to all extremities. No Lacerations. No Rash Neuro: Oriented X 3. No motor deficit. No sensory deficit. Moving all extermities. No slurred speech Medications Administered Discontinued Medications Generic Name Dose Route Start Last Admin Trade Name Freq PRN Reason Stop Dose Admin Sodium Chloride 1,000 mls @ 999 mls/hr 09/29/23 12:45 09/29/23 12:56 Ns IV 09/29/23 13:45 999 mls/hr .Q1H1M [facility] Administration Medical Decision Making Medical Decision Making [facility] Narrative: My interpretation of patient's EKG showed a sinus rhythm heart rate is 90 AL QRS QTC is normal . Positive LVH. EKG very similar to previous bouts from more remote past. Patient 2 sets of cardiac enzymes are negative. Symptom has completely resolved. Nevertheless patient has significant cardiac risk factors including hypertension, smoking and previous TN. patient pain is different from his previous bouts of myocardial infarction. Patient's chest x-ray showed question infiltrate however patient denies any coughing any respiratory symptoms at all. White count is normal. With no shift. Unlikely secondary to pneumonia. Patient as to stay in the hospital he refused. He understood the risks including a very small risk of TN. case discussed with cardiology. Patient offered a very early appointment to get a stress test done. He states understanding. Will also get his blood pressure recheck. Patient being sent home. He signed out against medical advice. Differential Diagnosis Differential Diagnoses: The differential diagnosis associated with the presentation includes Hypertension, chest pain Admission/Observation Consideration of admission/observation: Escalation of care including admission/observation considered Patient did not want to stay Consult Healthcare Provider Management of the patient was discussed with: Campaign Management Specialist (Shadi) Lab Data [facility] Lab Attestation statement: I reviewed the patient's lab results. 09/29/23 12:44 09/29/23 12:44 Labs: Lab Results 09/29/23 09/29/23 09/29/23 Range/Units 11:56 12:44 12:51 WBC 10.2 (4.8-10.8) X10*3/uL RBC 4.56 L (4.60-5.80) X10*6/uL Hgb 13.3 L (14.0-18.0) g/dl Hct 39.8 L (42.0-52.0) % MCV 87.3 (80.0-98.0) fL MCH 29.2 (27.0-33.0) pg MCHC 33.4 (31.0-36.0) g/dl RDW 13.1 (11.0-16.0) % Plt Count 220 (160-400) X10*3/uL MPV 10.9 (9.4-12.4) fL Immature Gran % (Auto) 0.7 H (0.0-0.4) % Neut % (Auto) 71.6 (45-73) % Lymph % (Auto) 19.5 L (20-40) % Blair % (Auto) 5.4 (2-11) % Eos % (Auto) 2.4 (0-4) % Baso % (Auto) 0.4 (0-2) % Lymph # (Auto) 2.0 (1.2-4.9) X10*3/uL Blair # (Auto) 0.6 (0.1-1.2) X10*3/uL Eos # (Auto) 0.2 (0.0-0.4) X10*3/uL Baso # (Auto) 0.0 (0.0-0.2) X10*3/uL Abs Immat Gran (auto) 0.07 H (0.00-0.03) X10*3/uL Absolute Neuts (auto) 7.3 (2.0-8.3) x10*3/uL Absolute Nucleated RBC 0.000 (0.0-0.012) X10*3/uL Nucleated RBC % (auto) 0.0 (0.0-0.2) /100WBC Sodium 141 (135-145) mmol/L Potassium 3.9 (3.3-5.1) mmol/L Chloride 104 (96-108) mmol/L Carbon Dioxide 29 (22-29) mmol/L Anion Gap 12 (12-20) BUN 15 (9-16) mg/dL Creatinine 0.86 (0.5-1.4) mg/dL Estim Creat Clear Calc 136.5 Estimated GFR > 60 POC Glucose 95 (60-115) mg/dL Random Glucose 94 (60-115) mg/dL Calcium 9.5 (8.4-10.2) mg/dL Troponin I High Sens 7.2 D (<3.5-35.0) ng/L Urine Color Yellow Urine Appearance Clear Urine pH 5.5 (5.0-9.0) Ur Specific [place] 1.020 (1.005-1.025) Urine Protein Negative (Neg-Trace) mg/dL Urine Glucose (UA) Negative (Negative) mg/dL Urine Ketones Negative (Negative) mg/dL Urine Blood Negative (Negative) Urine Nitrite Negative (Negative) Ur Leukocyte Esterase Negative (Negative) Urine RBC 0-2 (0-2) /HPF Urine WBC 0-5 (0-5) /HPF Ur Squamous Epith Cells 0-2 (0-2) /HPF Urine Bacteria None Seen (None Seen) Hyaline Casts 0-2 (0-2) /LPF Influenza Type A (PCR) NEGATIVE (Negative) Influenza Type B (PCR) NEGATIVE (Negative) RSV RNA Qual (PCR) NEGATIVE (Negative) SARS-CoV-2 RNA (RT-PCR) NEGATIVE (Negative) 09/29/23 Range/Units 14:24 WBC (4.8-10.8) X10*3/uL RBC (4.60-5.80) X10*6/uL Hgb (14.0-18.0) g/dl Hct (42.0-52.0) % MCV (80.0-98.0) fL MCH (27.0-33.0) pg MCHC (31.0-36.0) g/dl RDW (11.0-16.0) % Plt Count (160-400) X10*3/uL MPV (9.4-12.4) fL Immature Gran % (Auto) (0.0-0.4) % Neut % (Auto) (45-73) % Lymph % (Auto) (20-40) % Blair % (Auto) (2-11) % Eos % (Auto) (0-4) % Baso % (Auto) (0-2) % Lymph # (Auto) (1.2-4.9) X10*3/uL Blair # (Auto) (0.1-1.2) X10*3/uL Eos # (Auto) (0.0-0.4) X10*3/uL Baso # (Auto) (0.0-0.2) X10*3/uL Abs Immat Gran (auto) (0.00-0.03) X10*3/uL Absolute Neuts (auto) (2.0-8.3) x10*3/uL Absolute Nucleated RBC (0.0-0.012) X10*3/uL Nucleated RBC % (auto) (0.0-0.2) /100WBC Sodium (135-145) mmol/L Potassium (3.3-5.1) mmol/L Chloride (96-108) mmol/L Carbon Dioxide (22-29) mmol/L Anion Gap (12-20) BUN (9-16) mg/dL Creatinine (0.5-1.4) mg/dL Estim Creat Clear Calc Estimated GFR POC Glucose (60-115) mg/dL Random Glucose (60-115) mg/dL Calcium (8.4-10.2) mg/dL Troponin I High Sens 8.8 (<3.5-35.0) ng/L Urine Color Urine Appearance Urine pH (5.0-9.0) Ur Specific [place] (1.005-1.025) Urine Protein (Neg-Trace) mg/dL Urine Glucose (UA) (Negative) mg/dL Urine Ketones (Negative) mg/dL Urine Blood (Negative) Urine Nitrite (Negative) Ur Leukocyte Esterase (Negative) Urine RBC (0-2) /HPF Urine WBC (0-5) /HPF Ur Squamous Epith Cells (0-2) /HPF Urine Bacteria (None Seen) Hyaline Casts (0-2) /LPF Influenza Type A (PCR) (Negative) Influenza Type B (PCR) (Negative) RSV RNA Qual (PCR) (Negative) SARS-CoV-2 RNA (RT-PCR) (Negative) Independent Interpretation I performed an independent interpretation of an: EKG (Sinus heart rate is 80 AL QRS QTC within normal limits there has no significant changes when compared to previous EKG. There is poor baseline in the inferior leads) and Plain X-Ray (Chest x-ray is grossly negative) Radiology Impression Discussion of test interpretation with radiology: I have reviewed the radiologist's reading. Independent Historian Clinical information obtained from an independent historian. History obtained from or confirmed by: Spouse Chronic Conditions Patient?s care impacted by: Hypertension Smoking, previous [place], previous recreational drug use Social Determinants Patient?s care significantly limited by Social Determinants of Health including: Alcoholism and drug addiction in family Discharge Plan Discharge Clinical Impression: Chest pain Patient Disposition: Left Against Medical Advice Instructions: Chest Pain (DC), Chronic Hypertension (ED) Additional Instructions: Please get a stress test done on an outpatient basis. The name of the narrow fabrics weaver was given to you. Worsening condition return immediately. Prescriptions: No Action fenofibrate 160 mg tablet 160 mg PO DAILY 90 Days Qty: 90 1RF Anoro Ellipta 62.5-25 mcg/actuation blister with device 1 ea PO DAILY Qty: 60 8RF (DME) Blood Pressure Cuff Misc See Rx Instructions .Route Qty: 1 0RF Rx Instructions: As directed (DME) Grab bar Misc See Rx Instructions .Route Qty: 1 0RF Rx Instructions: As directed colchicine 0.6 mg tablet 0.6 mg PO DAILY 5 Days Qty: 5 0RF cholecalciferol (vitamin D3) 50 mcg (2,000 unit) tablet 50 mcg PO DAILY Qty: 90 0RF indomethacin 50 mg capsule 50 mg PO BID 10 Days Qty: 20 1RF Rx Instructions: administer with food or milk epinephrine 0.1 mg/0.1 mL auto-injector 0.1 mg IM ONCE PRN (Reason: hypersensitivity reaction) 30 Days Qty: 3 2RF (DME) Shower Chair Misc See Rx Instructions .Route Qty: 1 0RF Rx Instructions: As directed (DME) hand rails See Rx Instructions .Route .MEDSUPPLY Qty: 1 0RF Rx Instructions: As directed lisinopril 40 mg tablet 40 mg PO DAILY Qty: 90 2RF folic acid 1 mg tablet 1 mg PO DAILY Qty: 30 11RF albuterol sulfate 2.5 mg /3 mL (0.083 %) solution for nebulization 2.5 mg inhalation TID Qty: 225 3RF albuterol sulfate [Ventolin HFA] 90 mcg/actuation HFA aerosol inhaler 2 puff inhalation Q4-6H PRN (Reason: shortness of breath or wheezing) Qty: 8.5 5RF amlodipine 5 mg tablet 5 mg PO DAILY Qty: 30 3RF carisoprodol 350 mg tablet 350 mg PO TID PRN (Reason: Muscle Pain) 30 Days Qty: 90 0RF pantoprazole 40 mg tablet,delayed release (DR/EC) 40 mg PO DAILY 90 Days Qty: 90 0RF oxcarbazepine 300 mg tablet 1 tab PO BID buspirone 10 mg tablet 1 tab PO TID clonazepam 2 mg tablet 1 tab PO BID zolpidem 10 mg tablet 1 tab PO BEDTIME PRN (Reason: Insomnia) prazosin 2 mg capsule 1 cap PO BID hydroxyzine pamoate 25 mg capsule 1 cap PO BID PRN (Reason: Anxiety) aripiprazole 10 mg tablet 1 tab PO QAM naloxone [Narcan] 4 mg/actuation spray,non-aerosol 4 mg intranasal Q2M PRN (Reason: opioid overdose) Qty: 2 0RF Rx Instructions: spray 1 dose into ONE nostril; alternate nostrils w each dose until help arrives naloxone [Narcan] 4 mg/actuation spray,non-aerosol 4 mg intranasal Q2M PRN (Reason: opioid overdose) Qty: 2 0RF Rx Instructions: spray 1 dose into ONE nostril; alternate nostrils w each dose until help arrives cyanocobalamin (vitamin B-12) 1,000 mcg tablet extended release 1,000 mcg PO DAILY 90 Days Qty: 90 3RF nicotine 21 mg/24 hr patch 24 hour 1 patch transdermal DAILY 28 Days Qty: 28 0RF (DME) blood pressure monitor [Blood Pressure Kit] Kit See Rx Instructions .Route Qty: 1 0RF Rx Instructions: As directed ibuprofen 800 mg tablet 800 mg PO Q8H 30 Days Qty: 90 3RF oxcarbazepine 600 mg tablet 600 mg PO BID melatonin 5 mg capsule 5 mg PO BEDTIME PRN (Reason: Insomnia) Referrals: Demian Hsu MD [Physician] - 1 day Stand Alone Forms: Against Medical Advice
[2023-09-29 12:51] LABS: MANUAL DIFF FLAG NO
[2023-09-29 12:52] LABS: Basophils Percent Auto 0.4 % (0-2); Eosinophils Absolute Auto 0.2 X10*3/uL (0.0-0.4); Eosinophils Percent Auto 2.4 % (0-4); Hematocrit 39.8 % (42.0-52.0); Hemoglobin 13.3 g/dl (14.0-18.0); Imm Gran Abs Auto 0.07 X10*3/uL (0.00-0.03); Imm Gran Pct Auto 0.7 % (0.0-0.4); Lymphocytes Percent Auto 19.5 % (20-40); Mean Corpuscular HGB Conc 33.4 g/dl (31.0-36.0); Mean Corpuscular Hemoglobin 29.2 pg (27.0-33.0); Mean Corpuscular Volume 87.3 fL (80.0-98.0); Mean Platelet Volume 10.9 fL (9.4-12.4); Monocytes Absolute Auto 0.6 X10*3/uL (0.1-1.2); Monocytes Percent Auto 5.4 % (2-11); Neutrophils Absolute Auto 7.3 x10*3/uL (2.0-8.3); Neutrophils Percent Auto 71.6 % (45-73); Platelet Count 220 X10*3/uL (160-400); Red Blood Count 4.56 X10*6/uL (4.60-5.80); Red Cell Distribution Width 13.1 % (11.0-16.0); White Blood Count 10.2 X10*3/uL (4.8-10.8)
[2023-09-29] MEDS: 0.9 % Sodium Chloride 1,000 ML 999 ML IV (12:56)
[2023-09-29 13:00] LABS: Appearance Urine Clear; Color Urine Yellow; Glucose Urine UA Negative (Negative); Leukocyte Esterase Urine Negative (Negative); Nitrite Urine Negative (Negative); PH 5.5 (5.0-9.0); Urine Blood Negative (Negative); Urine Ketones Negative (Negative); Urine Protein Negative (Neg-Trace)
[2023-09-29 13:02] LABS: Bacteria Urine None Seen (None Seen); Hyaline Casts Urine 0-2 /LPF (0-2); RBC Urine 0-2 /HPF (0-2); Squamous Epithelial Cell Urine 0-2 /HPF (0-2); WBC Urine 0-5 /HPF (0-5)
[2023-09-29 13:05] LABS: Anion Gap 12 (12-20); Blood Urea Nitrogen 15 mg/dL (9-16); Calcium 9.5 mg/dL (8.4-10.2); Carbon Dioxide 29 mmol/L (22-29); Chloride 104 mmol/L (96-108); Creatinine Clr Calc Pharmacy 136.5; Estimated Glomerular Filt Rate > 60; Glucose Random 94 mg/dL (60-115); Potassium 3.9 mmol/L (3.3-5.1); Sodium 141 mmol/L (135-145)
[2023-09-29 13:19] LABS: Troponin-I High Sensitivity 7.2 ng/L (<3.5-35.0)
[2023-09-29 13:41] LABS: Influenza A PCR NEGATIVE (Negative); Influenza B PCR NEGATIVE (Negative); Resp Syncy Virus RNA Qual PCR NEGATIVE (Negative); SARS COV2 PCR INHOUSE NEGATIVE (Negative)
--- NOTE | 2023-09-29 13:45 | MHC.EDTECH ---
pt has asked that all staff are aware DO NOT WAKE UP PT BY TOUCH d/t PTSD
--- NOTE | 2023-09-29 14:06 | PC.NURSE ---
MD Yeboah made aware of troponin 7.2, asked if MD wanted repeat troponin. Awaiting new orders.
[2023-09-29 14:48] LABS: Troponin-I High Sensitivity 8.8 ng/L (<3.5-35.0)
[2023-09-29 16:15] VITALS: BP 185/119; PULSE 84; RESP 18; TEMP 36.3; O2SAT 97
--- NOTE | 2023-09-29 16:23 | PC.NURSE ---
Late entry: pt a&o x4, calm, and cooperative. per Dr. Yeboah, pt ordered regular diet. IV placed by MAMADOU Cid, fluids infused per oct. pt BP elevated, MD aware and educated pt on taking home medications. pt denies chest pain, sts it has resolved.
== END 2023-09-29 16:26 | disposition left against medical advice (07) ==
PROVIDERS: Emergency Provider Emergency Medicine Emergency Medical Services
DX: R07.9 Chest pain, unspecified (principal); I10 Essential (primary) hypertension; Z11.52 Encounter for screening for COVID-19; Z20.828 Contact with and (suspected) exposure to other viral communicable diseases; E78.2 Mixed hyperlipidemia; F17.210 Nicotine dependence, cigarettes, uncomplicated; Z79.899 Other long term (current) drug therapy
CPT/HCPCS: 0241U; 36415; 71045; 80048; 81001; 82947; 84484; 85025; 93005; 96360; 99284; 99285

== ENCOUNTER → 2023-09-29 11:46 | Outpatient (BNV) | payer OTHER, SELFPAY | PROVIDERS: Emergency Provider Emergency Medicine Emergency Medical Services; Visit Provider Internal Medicine Cardiovascular Disease | DX: R94.31 Abnormal electrocardiogram [ECG] [EKG] (principal) | CPT/HCPCS: 93010 ==

== ENCOUNTER 2023-10-06 14:43 | Outpatient (AMB) | payer OTHER, SELFPAY ==
--- NOTE | 2023-10-06 14:51 | MHC.OFFVIS ---
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: No Accompanied by: Self / Same As Patient Allergies bee stings Allergy (Severe, Verified 10/06/23 14:54) Anaphylaxis hydromorphone [From DILAUDID] Adverse Reaction (Severe, Verified 10/06/23 14:54) VIOLENTLY ILL NEEDS TO EAT FIRST Medication List - Last Reconciled 10/06/23 by Fabian Brooks MD albuterol sulfate 2.5 mg (3 mL) inhalation TID albuterol sulfate 90 mcg/actuation (Ventolin HFA) 2 puffs inhalation Q4-6H PRN amlodipine 5 mg PO DAILY aripiprazole 10 mg PO QAM blood pressure monitor (Blood Pressure Kit) As directed buspirone 10 mg PO TID carisoprodol 350 mg PO TID PRN 30 days cholecalciferol (vitamin D3) 50 mcg PO DAILY clonazepam 2 mg PO BID colchicine 0.6 mg PO DAILY 5 days cyanocobalamin (vitamin B-12) ER 1,000 mcg PO DAILY 90 days epinephrine 0.1 mg (0.1 mL) IM ONCE PRN 30 days fenofibrate 160 mg PO DAILY 90 days folic acid 1 mg PO DAILY Grab bar As directed [hand rails As directed] hydroxyzine pamoate 25 mg PO BID PRN ibuprofen 800 mg PO Q8H 30 days indomethacin 50 mg PO BID 10 days lisinopril 40 mg PO DAILY melatonin 5 mg PO BEDTIME PRN miscellaneous medical supply (Blood Pressure Cuff) As directed naloxone 4 mg/actuation (Narcan) 4 mg intranasal Q2M PRN nicotine 1 patch transdermal DAILY 28 days oxcarbazepine 600 mg PO BID oxcarbazepine 300 mg PO BID pantoprazole 40 mg PO DAILY 90 days prazosin 2 mg PO BID Shower Chair As directed umeclidinium-vilanterol 62.5-25 mcg/actuation (Anoro Ellipta) 1 ea PO DAILY zolpidem 10 mg PO BEDTIME PRN HPI HPI Comments History of Present Illness Details Froilan is here for consultation regarding chest pain. We have seen him in the past but not recently. Last appointment from 2019. At that time, he has had some chest pains that seem atypical for cardiac etiology. He underwent workup including coronary CTA but did not show any significant CAD. Recently, again noticing chest pains, somewhat atypical and no clear exertional patterns. Can happen any time. He also feels short of breath with activity. History of cocaine use and last was about 6 months ago according to him. Unfortunately, still smokes. Recent ER visit for chest pain when he was advised to stay but it seems he left against medical advice. [facility] Medical History Cocaine abuse Lactic acid acidosis Hypoxemia Opioid overdose COVID-19 COPD (chronic obstructive pulmonary disease) History of pneumonia Positive colorectal cancer screening using Cologuard test Gout Essential hypertension Lymphopenia Mixed hyperlipidemia Pernicious anemia Lumbar degenerative disc disease GERD (gastroesophageal reflux disease) Surgical History Hx of colonoscopy History of esophagogastroduodenoscopy (EGD) History of surgery Status post surgical removal of malignant neoplasm of skin History of shoulder surgery History of arthroscopy of left knee History of total left knee replacement Family History Father Lung cancer Mother Chronic mental illness Alzheimer disease Maternal Grandmother Bone cancer Hypertension Paternal Grandmother Brain cancer Maternal Uncle Cancer Family/Other Chronic mental illness Substance use disorder Social History Household Members: None and Other Household Members Other:: 2 room mates Housing: House Do you presently have visiting nurse or other home services: No Alcohol intake: former Patient Tobacco Use Status: Current everyday Tobacco user Tobacco use type: Cigarette Cigarettes Per Day: 10 e-Cigarette/Vaping Use: Never Used Second Hand Smoke Exposure: No Substance Use Type: Crack/Cocaine service: No Current occupational status: unemployed and disabled Cognitive needs: No Hearing needs: No Vision needs: No Review of Systems Const Denies chills, Denies daytime sleepiness, Denies fatigue, Denies fever(s), Denies frequent falls, Denies night sweats, Denies snoring, Denies weakness, Denies weight gain and Denies weight loss Eyes Denies loss of vision ENT Denies dizziness and Denies hearing loss Card Denies chest pain, Denies chest pain with activity, Denies syncope, Denies rapid heart rate, Denies edema, Denies claudication, Denies leg edema, Denies lightheadedness, Denies palpitations, Denies dyspnea, Denies dyspnea on exertion and Denies orthopnea Resp Denies cough, Denies excessive phlegm production, Denies dyspnea, Denies dyspnea on exertion, Denies snoring and Denies wheezing GI Denies abdominal pain, Denies hematochezia, Denies change in bowel habits, Denies change in stool character, Denies heartburn, Denies nausea and Denies vomiting Denies hematuria, Denies dysuria and Denies urinary frequency Musc Denies arthralgias, Denies muscle weakness, Denies numbness and Denies tingling Skin/Breast Denies nail changes and Denies rash Neuro Denies Abnormal speech present, Denies dizziness, Denies syncope, Denies frequent falls, Denies loss of vision, Denies memory loss, Denies numbness, Denies tingling and Denies weakness Psych Denies depression and Denies memory loss Endo Denies fatigue and Denies palpitations Aller/Immun Denies wheezing Physical Exam Vital Signs: Last Vital Signs Pulse 81 10/06/23 14:53 BP 158/100 H 10/06/23 14:53 BMI result Body Mass Index 36.2 Const General: comfortable and no acute distress Orientation/consciousness: patient oriented x3 HEENT Other: Unremarkable Head: Yes normal to inspection Neck Neck: Yes normal visual inspection Chest Chest palpation & inspection: normal inspection of the chest Resp Auscultation: clear to auscultation bilaterally Cardio Palpation: normal PMI Heart sounds: S1 normal heart sound present, S2 normal heart sound present, no gallops, no murmurs and no rubs GI Palpation (GI): Soft to palpation Back/Spine/Pelvis Other: unremarkable Skin General skin exam: no rashes or lesions noted Neuro General: patient oriented x3 Speech: No Abnormal speech present Extrem General: Yes normal to inspection Psych Mental Status: mental status grossly normal Assessment & Plan Assessment & Plan (1) Precordial chest pain: Code(s): R07.2 - Precordial pain (2) Essential hypertension: Code(s): I10 - Essential (primary) hypertension Plan Recent EKG with sinus rhythm at 85/Min; left ventricular hypertrophy pattern with some repolarization changes. Available high sensitivity troponins are within normal limits. Last cocaine screen was positive from 08/06. Nothing available since. Per patient, he used about 6 months back. Due to his numerous risk factors including smoking, cocaine use, uncontrolled hypertension, we will pursue further workup. Echocardiogram to look for any cardiomyopathy. Coronary CTA to assess for any hemodynamically significant CAD. Plan discussed and he is agreeable. We can see him back once these are completed. With regard to hypertension, still quite high. He is on lisinopril and amlodipine. We can increase the amlodipine dose to 10 mg daily. Orders: Orders CA echo transthoracic complete Today R07.2 - Precordial pain CT Cardiac Coronary Angio Today I25.10 - Atherosclerotic heart disease of [place] coronary artery without angina pectoris, R07.2 - Precordial pain Basic Metabolic Panel Today R07.2 - Precordial pain Medications: New amlodipine 10 mg PO DAILY 90 tabs 3RF Discontinued amlodipine Discontinued Reason: Doctor's Order 5 mg PO DAILY 30 tabs 3RF Coding Level of Care Code New Pt Level 4 (66782) Diagnoses Precordial chest pain R07.2 Essential hypertension I10
[2023-10-06 14:53] VITALS: BP 158/100; PULSE 81; BMI 36.2
== END 2023-10-06 15:19 | disposition home or self-care (01) ==
PROVIDERS: Visit Provider Internal Medicine
DX: R07.2 Precordial pain (principal); I10 Essential (primary) hypertension
CPT/HCPCS: 99204

== ENCOUNTER → 2023-10-06 14:43 | Outpatient (BNVA) | payer OTHER, SELFPAY | PROVIDERS: Visit Provider Internal Medicine | DX: R07.2 Precordial pain (principal); I10 Essential (primary) hypertension | CPT/HCPCS: 99202 ==

== ENCOUNTER 2023-10-07 10:28 | Outpatient (AMB) | payer OTHER, SELFPAY ==
--- NOTE | 2023-10-07 10:35 | A.OFFVIS_ITS ---
Intake Vital Signs 10/07/23 10:36 Height 6 ft 2 in Weight 279 lb 15.793 oz BMI 35.9 BP 158/98 H Blood Pressure Location Rt brachial Position Sitting Pulse 80 Pulse Source Doppler Pulse Oximetry (%) 96 Oxygen Delivery Method Room Air Intake Visit Reasons: COPD Allergies bee stings Allergy (Severe, Verified 10/07/23 10:39) Anaphylaxis hydromorphone [From DILAUDID] Adverse Reaction (Severe, Verified 10/07/23 10:39) VIOLENTLY ILL NEEDS TO EAT FIRST HPI COPD HPI0 Details 53-year-old gentleman, active 30+ pack-y ear smoker, trying to quit and requesting Chantix, referred for evaluation of his underlying respiratory issu es. Patient complains of dyspnea on exertion, previously helped by Shaina, now with worsening symptoms, also associated with lower extremity edema. Patient does have multiple first-degree relatives with COPD and lung cancer. He denies exposure to industrial dusts. [facility] Medical History Cocaine abuse Lactic acid acidosis Hypoxemia Opioid overdose COVID-19 COPD (chronic obstructive pulmonary disease) History of pneumonia Positive colorectal cancer screening using Cologuard test Gout Essential hypertension Lymphopenia Mixed hyperlipidemia Pernicious anemia Lumbar degenerative disc disease GERD (gastroesophageal reflux disease) Surgical History Hx of colonoscopy History of esophagogastroduodenoscopy (EGD) History of surgery Status post surgical removal of malignant neoplasm of skin History of shoulder surgery History of arthroscopy of left knee History of total left knee replacement Family History Father Lung cancer Mother Chronic mental illness Alzheimer disease Maternal Grandmother Bone cancer Hypertension Paternal Grandmother Brain cancer Maternal Uncle Cancer Family/Other Chronic mental illness Substance use disorder Social History Household Members: None and Other Household Members Other:: 2 room mates Housing: House Do you presently have visiting nurse or other home services: No Alcohol intake: former Patient Tobacco Use Status: Current everyday Tobacco user Tobacco use type: Cigarette Cigarettes Per Day: 10 e-Cigarette/Vaping Use: Never Used Second Hand Smoke Exposure: No Substance Use Type: Crack/Cocaine service: No Current occupational status: unemployed and disabled Cognitive needs: No Hearing needs: No Vision needs: No Review of Systems Const Denies daytime sleepiness, Denies excessive sweating, Denies fatigue, Denies fever(s), Denies lethargy, Denies malaise, Denies night sweats, Denies snoring and Denies weight loss Eyes Denies blurry vision and Denies itchy eyes ENT Denies nasal congestion, Denies post nasal drip, Denies sinus pain, Denies sinus pressure and Denies other ( Thrush) Card Denies chest pain, Reports pedal edema, Denies dyspnea, Reports dyspnea on exertion, Denies orthopnea and Denies paroxysmal nocturnal dyspnea Resp Denies cough, Denies hemoptysis, Denies excessive phlegm production, Denies dyspnea, Reports dyspnea on exertion, Denies snoring and Denies wheezing GI Denies abdominal pain and Denies heartburn Musc Denies myalgias, Denies arthralgias and Denies joint swelling Skin/Breast Denies rash Neuro Denies memory loss and Denies seizure-like activity Psych Denies abnormal sleep pattern, Denies anxiety and Denies memory loss Endo Denies excessive sweating, Denies fatigue and Denies heat intolerance Jimmy/Lymph Denies easy bruising Aller/Immun Denies itchy eyes, Denies seasonal rhinorrhea and Denies wheezing Physical Exam Vital Signs: Last Vital Signs Pulse 80 10/07/23 10:36 BP 158/98 H 10/07/23 10:36 Pulse Ox 96 10/07/23 10:36 Oxygen Delivery Method Room Air 10/07/23 10:36 BMI result Body Mass Index 35.9 Const General: no acute distress and alert Nutritional Appearance: obese Orientation/consciousness: Other orientation findings ( oriented) HEENT Head: Yes atraumatic Eyes General: appearance normal, both eyes and all related structures Sclerae: sclerae normal EOM: EOMs intact bilaterally Neck Neck: Yes supple Lymphatic: no lymphadenopathy noted Resp Effort & Inspection: normal respiratory effort and no use of accessory muscles Auscultation: clear to auscultation bilaterally Cardio Rate: regular rate Rhythm: regular rhythm Heart sounds: no gallops, no murmurs and no rubs Skin General skin exam: other ( warm) Extrem General: No clubbing, No cyanosis and Yes edema (1+ bilateral) Assessment & Plan Assessment & Plan (1) CUTLER (dyspnea on exertion): Code(s): R06.09 - Other forms of dyspnea Plan: Likely multifactorial with contribution from underlying pulmonary and cardiac etiologies. Will obtain PFT to evaluate likely underlying COPD. Will obtain 2D echocardiogram to evaluate cardiac component. Will continue on Anoro and albuterol MDI at this time. (2) Personal history of nicotine dependence: Code(s): Z87.891 - Personal history of nicotine dependence Plan: Will obtain lung cancer screening CT chest. Orders: Orders PFT pulmonary function test Today J44.9 - Chronic obstructive pulmonary disease, unspecified CT lung screening Today Z87.891 - Personal history of nicotine dependence CA echo transthorac w con Today R06.09 - Other forms of dyspnea Medications: New varenicline (Chantix Starting Month Box) PO PER PKG DIR 53 ea 0RF Refilled albuterol sulfate 90 mcg/actuation (Ventolin HFA) 2 puffs inhalation Q4-6H PRN 8.5 grams 6RF shortness of breath or wheezing J44.9 - Chronic obstructive pulmonary disease, unspecified umeclidinium-vilanterol 62.5-25 mcg/actuation (Anoro Ellipta) 1 ea PO DAILY 60 caps 6RF Coding Level of Care Code New Pt Level 4 (32940) Diagnoses CUTLER (dyspnea on exertion) R06.09 Personal history of nicotine dependence Z87.891
[2023-10-07 10:36] VITALS: BP 158/98; PULSE 80; O2SAT 96; BMI 35.9
== END 2023-10-07 10:57 | disposition home or self-care (01) ==
PROVIDERS: PCP Internal Medicine; Visit Provider Internal Medicine Pulmonary Disease
DX: R06.09 Other forms of dyspnea (principal); Z87.891 Personal history of nicotine dependence
CPT/HCPCS: 99204

== ENCOUNTER → 2023-10-07 10:28 | Outpatient (BNVA) | payer OTHER, SELFPAY | PROVIDERS: PCP Internal Medicine; Visit Provider Internal Medicine Pulmonary Disease | DX: R06.09 Other forms of dyspnea (principal); Z87.891 Personal history of nicotine dependence | CPT/HCPCS: 99202 ==

== ENCOUNTER 2023-10-11 10:31 | Outpatient (REF) | payer OTHER, SELFPAY ==
[2023-10-11 10:46] VITALS: PULSE 80; RESP 16; O2SAT 96
--- NOTE | 2023-10-11 14:37 | PFT_ITS ---
Flows: FEV1: 69 % of predicted at 2.85 L FVC: 103 % of predicted at 4.01 L FEV1/FVC: 71 % Bronchodilator response: Absent Volumes: No lung volumes measurements available secondary to a technical issue. Diffusion capacity: Mildly decreased, corrects to normal after adjustment for alveolar ventilation. Impression: No obstructive ventilatory defect. No bronchodilator response. No lung volume measurements available secondary to a technical issue. Decreased diffusion capacity suggests emphysema. MTDD
== END 2023-10-11 10:32 | disposition home or self-care (01) ==
LOC: HO.RESP 10:31
PROVIDERS: PCP Internal Medicine; Visit Provider Internal Medicine Pulmonary Disease
DX: J44.9 Chronic obstructive pulmonary disease, unspecified (principal)
CPT/HCPCS: 94010; 94640; 94727; 94729

== ENCOUNTER → 2023-10-11 14:37 | Outpatient (BNV) | payer OTHER, SELFPAY | PROVIDERS: PCP Internal Medicine; Visit Provider Internal Medicine Pulmonary Disease | DX: J44.9 Chronic obstructive pulmonary disease, unspecified (principal) | CPT/HCPCS: 94060; 94729 ==

== ENCOUNTER → 2023-11-08 09:42 | Outpatient (REF) | payer OTHER, SELFPAY ==
--- NOTE | 2023-11-08 09:53 | CA_ITS ---
Transthoracic Echocardiogram Patient (Last, First, Middle): Froilan Nixon R Gender: Male Date of : 1970 Age: 53 Procedure Date: 11/08/2023 Procedure Type: Transthoracic Echocardiogram Location: OP Height: 185. 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 The visually estimated ejection fraction is between 55-60%. - The basal inferior segment is hypokinetic. - Evidence suggests grade II (moderate) diastolic dysfunction. - There is mild dilatation of the ascending aorta measuring 4.20 cm. Findings Left Ventricle Normal left ventricular cavity size. There is severely increased left ventricular wall thickness. The left ventricular systolic function is normal. The visually estimated ejection fraction is between 55-60%. Evidence suggests grade II (moderate) diastolic dysfunction. Wall Motion Rest Echo Findings The basal inferior segment is hypokinetic. Right Ventricle Mildly increased right ventricular cavity size. Atria The left atrium is mildly dilated. The right atrium is normal in size. Aortic Valve The aortic valve was not well visualized. There is no aortic valve stenosis. There is no aortic valve regurgitation. Mitral Valve There is mild anterior mitral leaflet thickening. There is trace mitral valve regurgitation. There is no mitral valve stenosis. Pulmonic Valve The pulmonic valve is likely normal. Tricuspid Valve There is trace tricuspid valve regurgitation. There is no evidence of pulmonary hypertension. Great Vessels There is mild dilatation of the ascending aorta measuring 4.20 cm. Venous The inferior vena cava is normal in size and collapses greater than 50% with inspiration. Pericardium/Pleural There is a trivial pericardial effusion. Prior Study Comparison No significant change compared to prior study dated: 08/13/2016. (images reviewed, but image quality better in current study) Measurements 2D Linear Measurements IVSd: 1.61 0.6-0.9/0.6-1.0 cm LVIDd: 5.40 3.9-5.3/4.2-5.9 cm LVIDd Index: 2.20 2.4-3.2/2.2-3.1 cm/m2 LVIDs: 4.29 2.0-3.6 cm LVPWd: 1.76 0.7-1.1 cm LA Diam: 5.10 2.7-3.8/3.0-4.0 cm LAIDs Index: 2.07 1.5-2.3 cm/m2 LV Mass: 537.74 67-162/88-224 g LV Mass Index: 218.60 43-95/49-115 g/m2 LVOT Diam: 2.20 3.0+(-)1.3 cm 2D Systolic Function EF 4C: 50.20 >55% EF 2C: 47.10 >55% EF BiP: 50.60 >55% Mitral Valve MV Pk E: 1.18 MV PK A: 0.79 MV Decel Time: 159.00 E/A: 1.50 E'Lateral: 7.51 E'Medial: 5.11 E/E' Med: 23.10 E/E' Lat: 15.70 PHT: 46.00 MVA PHT: 4.78 Decel Amelia: 7.45 Aortic Valve AoV Pk Cornel: 1.83 AoV Mn Cornel: 1.31 AoV VTI: 0.33 AoV Pk Grad: 13.00 Aov Mn Grad: 8.00 SHUBHAM Cont.VTI: 2.73 LVOT LVOT Pk Cornel: 1.35 LVOT Mn Cornel: 0.93 LVOT VTI: 0.23 LVOT Pk Grad: 7.00 LVOT Mn Grad: 4.00 LVOT Diam: 2.20 LVOT Area: 3.80 Diastolic Function MV Pk E: 1.18 MV Pk A: 0.79 E/A: 1.50 E'Medial: 5.11 E/E' Med: 23.10 E' Laterial: 7.51 E/E' Lat: 15.70 Right Ventricle TAPSE (mm): 30.50 TVS' Cornel: 19.10 Tricuspid Valve TR Pk Cornel: 2.50 TR Pk Grad: 25.00 RA Press: 3.00 RVSP: 28.00 Great Vessels Aorta Sinus of Valsalva: 3.90 2.0-3.5 cm Ao Asc: 4.20 2.1-3.4 cm Pulmonary Valve PV Pk Cornel: 0.79 Peak PV Grad: 2.00 Updated in Other Vendor System with Status of Final Fabian Brooks MD electronically signed on 11/09/2023 8:53:50 AM with status of Final
== END ==
LOC: HO.CARD 09:42
PROVIDERS: PCP Internal Medicine; Visit Provider Internal Medicine
DX: R07.2 Precordial pain (principal)
CPT/HCPCS: 93306

== ENCOUNTER → 2023-11-08 09:53 | Outpatient (BNV) | payer OTHER, SELFPAY | PROVIDERS: PCP Internal Medicine; Visit Provider Internal Medicine | DX: I71.21 Aneurysm of the ascending aorta, without rupture (principal) | CPT/HCPCS: 93306 ==

== ENCOUNTER 2023-11-16 08:15 | Outpatient (REF) | payer OTHER, SELFPAY ==
--- NOTE | ~2023-11-16 | CT_ITS ---
EXAMINATION: CT CHEST SCREENING CLINICAL INFORMATION: Personal history of nicotine dependence. COMPARISON: CTA chest 01/26/2019 TECHNIQUE: Multidetector volumetric CT imaging of the chest is performed without contrast using low dose technique. Additional 2D coronal and sagittal reformatted images and axial 3D maximum intensity projection (MIP) images are generated on the CT workstation. This CT examination was performed using dose optimization techniques as appropriate, variously including the following: *Automated exposure control *Adjustment of mA and/or kV according to patient size (this includes techniques or standardized protocols for targeted exams where dose is matched to indication/reason for exam; i.e. extremities or head) *Use of iterative reconstruction technique DLP: 90.48 mGy-cm FINDINGS: LUNGS: Mild emphysematous changes are present. There is marked saber-sheath trachea seen. Mild bronchial thickening is present. Some tiny nodules are seen none larger than 4 mm (for example 5:156 right upper lobe). A few areas of scattered scarring are seen. The lungs are otherwise clear with no evidence of inflammation or new/worrisome nodules. MEDIASTINUM: The mediastinum is normal. CORONARY ARTERY CALCIFICATION: Mild. PLEURA: There is no pleural effusion. No pleural mass or thickening. AXILLA: No lymphadenopathy. UPPER ABDOMEN: Unremarkable. OSSEOUS STRUCTURES: Unremarkable. CT/CT lung screening IMPRESSION: No evidence to suggest malignancy. Emphysema and bronchial thickening. ASSESSMENT: Lung-RADS category 2: Benign RECOMMENDATION: Routine annual low-dose CT screening in 12 months.
== END 2023-11-16 08:16 | disposition home or self-care (01) ==
LOC: HO.CT 08:15
PROVIDERS: PCP Internal Medicine; Visit Provider Internal Medicine Pulmonary Disease
DX: Z12.2 Encounter for screening for malignant neoplasm of respiratory organs (principal); Z87.891 Personal history of nicotine dependence
CPT/HCPCS: 71271

== ENCOUNTER 2023-11-30 09:48 | Outpatient (AMB) | payer OTHER, SELFPAY ==
--- NOTE | 2023-11-30 10:06 | A.OFFVIS_ITS ---
Intake Vital Signs 11/30/23 10:07 Height 6 ft 2 in Weight 271 lb 2.697 oz BMI 34.8 BP 152/100 H Blood Pressure Location Lt brachial Position Sitting Pulse 78 Pulse Source Doppler Pulse Oximetry (%) 97 Oxygen Delivery Method Room Air Intake Visit Reasons: copd Allergies bee stings Allergy (Severe, Verified 11/30/23 10:12) Anaphylaxis hydromorphone [From DILAUDID] Adverse Reaction (Severe, Verified 11/30/23 10:12) VIOLENTLY ILL NEEDS TO EAT FIRST HPI copd HPI0 Details 53-year-old gentleman, active 30+ pack-y ear smoker, trying to quit and requesting Chantix, referred for evaluation of his underlying respiratory issu es. Patient complains of dyspnea on exertion, previously helped by Shaina, now with worsening symptoms, also associated with lower extremity edema. Patient does have multiple first-degree relatives with COPD and lung cancer. He denies exposure to industrial dusts. After the last office visit patient had completed his CT lung screening which was essentially normal. His pulmonary function test showed mild emphysema with no fixed obstruction. His 2D echocardiogram demonstrated at least grade 2 diastolic dysfunction. He continues to complain of paroxysmal nocturnal dyspnea and orthopnea. PENDING SALE TO [facility] Medical History Cocaine abuse Lactic acid acidosis Hypoxemia Opioid overdose COVID-19 COPD (chronic obstructive pulmonary disease) History of pneumonia Positive colorectal cancer screening using Cologuard test Gout Essential hypertension Lymphopenia Mixed hyperlipidemia Pernicious anemia Lumbar degenerative disc disease GERD (gastroesophageal reflux disease) Surgical History Hx of colonoscopy History of esophagogastroduodenoscopy (EGD) History of surgery Status post surgical removal of malignant neoplasm of skin History of shoulder surgery History of arthroscopy of left knee History of total left knee replacement Family History Father Lung cancer Mother Chronic mental illness Alzheimer disease Maternal Grandmother Bone cancer Hypertension Paternal Grandmother Brain cancer Maternal Uncle Cancer Family/Other Chronic mental illness Substance use disorder Social History Household Members: None and Other Household Members Other:: 2 room mates Housing: House Do you presently have visiting nurse or other home services: No Alcohol intake: former Patient Tobacco Use Status: Current everyday Tobacco user Tobacco use type: Cigarette Cigarettes Per Day: 10 e-Cigarette/Vaping Use: Never Used Second Hand Smoke Exposure: No Substance Use Type: Crack/Cocaine service: No Current occupational status: unemployed and disabled Cognitive needs: No Hearing needs: No Vision needs: No Review of Systems Const Denies daytime sleepiness, Denies excessive sweating, Denies fatigue, Denies fever(s), Denies lethargy, Denies malaise, Denies night sweats, Denies snoring a nd Denies weight loss Eyes Denies blurry vision and Denies itchy eyes ENT Denies nasal congestion, Denies post nasal drip, Denies sinus pain, Denies sinus pressure and Denies other ( Thrush) Card Denies chest pain, Denies pedal edema, Denies dyspnea, Reports orthopnea and Reports paroxysmal nocturnal dyspnea Resp Denies cough, Denies hemoptysis, Denies excessive phlegm production, Denies dyspnea, Denies snoring and Denies wheezing GI Denies abdominal pain and Denies heartburn Musc Denies myalgias, Denies arthralgias and Denies joint swelling Skin/Breast Denies rash Neuro Denies memory loss and Denies seizure-like activity Psych Denies abnormal sleep pattern, Denies anxiety and Denies memory loss Endo Denies excessive sweating, Denies fatigue and Denies heat intolerance Jimmy/Lymph Denies easy bruising Aller/Immun Denies itchy eyes, Denies seasonal rhinorrhea and Denies wheezing Physical Exam Vital Signs: Last Vital Signs Pulse 78 11/30/23 10:07 BP 152/100 H 11/30/23 10:07 Pulse Ox 97 11/30/23 10:07 Oxygen Delivery Method Room Air 11/30/23 10:07 BMI result Body Mass Index 34.8 Const General: no acute distress and alert Nutritional Appearance: not obese Orientation/consciousness: Other orientation findings ( oriented) HEENT Head: Yes atraumatic Eyes General: appearance normal, both eyes and all related structures Sclerae: sclerae normal EOM: EOMs intact bilaterally Neck Neck: Yes supple Lymphatic: no lymphadenopathy noted Resp Effort & Inspection: normal respiratory effort and no use of accessory muscles Auscultation: clear to auscultation bilaterally Cardio Rate: regular rate Rhythm: regular rhythm Heart sounds: no gallops, no murmurs and no rubs Skin General skin exam: other ( warm) Extrem General: No clubbing, No cyanosis and No edema Assessment & Plan Assessment & Plan (1) CUTLER (dyspnea on exertion): Code(s): R06.09 - Other forms of dyspnea Plan: Appears to have significant diastolic dysfunction component. Will start on Lasix if no improvement will consider further referral to Cardiology. (2) Emphysema lung: Code(s): J43.9 - Emphysema, unspecified Plan: Results of pulmonary function test reviewed, mild emphysema with no fixed obstruction. Continue on Anoro and albuterol MDI. (3) Personal history of nicotine dependence: Code(s): Z87.891 - Personal history of nicotine dependence Plan: Results of lung screening CT chest reviewed, no worrisome nodules noted. Continue with yearly screening. Medications: New furosemide 40 mg PO QAM 30 tabs 6RF Coding Level of Care Code Est Pt Level 4 (22035) Diagnoses CUTLER (dyspnea on exertion) R06.09 Emphysema lung J43.9 Personal history of nicotine dependence Z87.891
[2023-11-30 10:07] VITALS: BP 152/100; PULSE 78; O2SAT 97; BMI 34.8
== END 2023-11-30 10:44 | disposition home or self-care (01) ==
PROVIDERS: PCP Internal Medicine; Visit Provider Internal Medicine Pulmonary Disease
DX: R06.09 Other forms of dyspnea (principal); J43.9 Emphysema, unspecified; Z87.891 Personal history of nicotine dependence
CPT/HCPCS: 99214

== ENCOUNTER → 2023-11-30 09:48 | Outpatient (BNVA) | payer OTHER, SELFPAY | PROVIDERS: PCP Internal Medicine; Visit Provider Internal Medicine Pulmonary Disease | DX: J43.9 Emphysema, unspecified (principal); R06.09 Other forms of dyspnea; Z87.891 Personal history of nicotine dependence | CPT/HCPCS: 99212 ==

== ENCOUNTER 2023-12-06 08:17 | Outpatient (AMB) | payer OTHER, SELFPAY ==
[2023-12-06 08:33] VITALS: BP 160/80; PULSE 85; O2SAT 98; BMI 34.8
--- NOTE | 2023-12-06 08:33 | A.OFFVIS_ITS ---
Vital Signs 12/06/23 08:33 Height 6 ft 2 in Weight 271 lb 2.697 oz BMI 34.8 BP 160/80 H Blood Pressure Location Lt brachial Position Sitting Pulse 85 Pulse Source Pulse Oximeter Pulse Oximetry (%) 98 Oxygen Delivery Method Room Air Intake Visit Reasons: f/up cta timbo / echo Allergies bee stings Allergy (Severe, Verified 11/30/23 10:12) Anaphylaxis hydromorphone [From DILAUDID] Adverse Reaction (Severe, Verified 11/30/23 10:12) VIOLENTLY ILL NEEDS TO EAT FIRST Medication List - Last Reconciled 12/06/23 by Fabian Brooks MD albuterol sulfate 2.5 mg (3 mL) inhalation TID albuterol sulfate 90 mcg/actuation (Ventolin HFA) 2 puffs inhalation Q4-6H PRN amlodipine 10 mg PO DAILY aripiprazole 10 mg PO QAM blood pressure monitor (Blood Pressure Kit) As directed buspirone 10 mg PO TID carisoprodol 350 mg PO TID PRN 30 days cholecalciferol (vitamin D3) 50 mcg PO DAILY clonazepam 2 mg PO BID colchicine 0.6 mg PO DAILY 5 days cyanocobalamin (vitamin B-12) ER 1,000 mcg PO DAILY 90 days epinephrine 0.1 mg (0.1 mL) IM ONCE PRN 30 days fenofibrate 160 mg PO DAILY 90 days folic acid 1 mg PO DAILY furosemide 40 mg PO QAM Grab bar As directed [hand rails As directed] hydroxyzine pamoate 25 mg PO BID PRN ibuprofen 800 mg PO Q8H 30 days indomethacin 50 mg PO BID 10 days lisinopril 40 mg PO DAILY melatonin 5 mg PO BEDTIME PRN miscellaneous medical supply (Blood Pressure Cuff) As directed naloxone 4 mg/actuation (Narcan) 4 mg intranasal Q2M PRN nicotine 1 patch transdermal DAILY 28 days oxcarbazepine 600 mg PO BID oxcarbazepine 300 mg PO BID pantoprazole 40 mg PO DAILY 90 days prazosin 2 mg PO BID Shower Chair As directed umeclidinium-vilanterol 62.5-25 mcg/actuation (Anoro Ellipta) 1 ea PO DAILY varenicline (Chantix Starting Month Box) PO PER PKG DIR zolpidem 10 mg PO BEDTIME PRN HPI Comments Details: Froilan returns for follow-up. Recently seen in consultation regarding chest pains. Prior to that, seen around 2019. He had atypical chest pain then le ading to coronary CTA but did not have any significant coronary disease. Again noticing some chest pains that seem atypical and nonexertional. He also gets short of breath with activity. History of cocaine use and last was about 6 months ago according to him. Unfortunately, still smokes. Recent ER visit for chest pain when he was advised to stay but it seems he left against medical advice. Repeat coronary CTA was requested but he has still not done that. Apparently they called him to schedule but he did not respond. [facility] Medical History Cocaine abuse Lactic acid acidosis Hypoxemia Opioid overdose COVID-19 COPD (chronic obstructive pulmonary disease) History of pneumonia Positive colorectal cancer screening using Cologuard test Gout Essential hypertension Lymphopenia Mixed hyperlipidemia Pernicious anemia Lumbar degenerative disc disease GERD (gastroesophageal reflux disease) Surgical History Hx of colonoscopy History of esophagogastroduodenoscopy (EGD) History of surgery Status post surgical removal of malignant neoplasm of skin History of shoulder surgery History of arthroscopy of left knee History of total left knee replacement Family History Father Lung cancer Mother Chronic mental illness Alzheimer disease Maternal Grandmother Bone cancer Hypertension Paternal Grandmother Brain cancer Maternal Uncle Cancer Family/Other Chronic mental illness Substance use disorder Social History Household Members: None and Other Household Members Other:: 2 room mates Housing: House Do you presently have visiting nurse or other home services: No Alcohol intake: former Patient Tobacco Use Status: Current everyday Tobacco user Tobacco use type: Cigarette Cigarettes Per Day: 10 e-Cigarette/Vaping Use: Never Used Second Hand Smoke Exposure: No Substance Use Type: Crack/Cocaine service: No Current occupational status: unemployed and disabled Cognitive needs: No Hearing needs: No Vision needs: No Review of Systems Const Denies weakness ENT Denies dizziness Card Denies chest pain, Denies chest pain with activity, Denies syncope, Denies rapid heart rate, Denies pedal edema, Denies edema, Denies leg edema, Denies lightheadedness, Denies palpitations, Denies dyspnea, Denies dyspnea on exertion and Denies orthopnea Resp Denies cough, Denies dyspnea and Denies dyspnea on exertion GI Denies hematochezia and Denies change in stool character Musc Denies abnormal gait, Denies muscle cramps, Denies muscle weakness, Denies numbness, Denies radiating pain into limb and Denies tingling Neuro Denies abnormal gait, Denies dizziness, Denies syncope, Denies numbness, Denies tingling and Denies weakness Endo Denies palpitations Physical Exam Vital Signs: Last Vital Signs Pulse 85 12/06/23 08:33 BP 160/80 H 12/06/23 08:33 Pulse Ox 98 12/06/23 08:33 Oxygen Delivery Method Room Air 12/06/23 08:33 BMI result Body Mass Index 34.8 Const General: comfortable and no acute distress Orientation/consciousness: patient oriented x3 HEENT Other: Unremarkable Head: Yes normal to inspection Neck Neck: Yes normal visual inspection Chest Chest palpation & inspection: normal inspection of the chest Resp Auscultation: clear to auscultation bilaterally Cardio Palpation: normal PMI Heart sounds: S1 normal heart sound present, S2 normal heart sound present, no gallops, no murmurs and no rubs GI Palpation (GI): Soft to palpation Back/Spine/Pelvis Other: unremarkable Skin General skin exam: no rashes or lesions noted Neuro General: patient oriented x3 Extrem General: Yes normal to inspection Psych Mental Status: mental status grossly normal Assessment & Plan Assessment & Plan (1) Precordial chest pain: Code(s): R07.2 - Precordial pain Category: Medical (2) CUTLER (dyspnea on exertion): Code(s): R06.09 - Other forms of dyspnea Category: Medical (3) Essential hypertension: Code(s): I10 - Essential (primary) hypertension Category: Medical (4) Diastolic dysfunction: Code(s): I51.89 - Other ill-defined heart diseases Category: Medical (5) Ascending aorta dilatation: Code(s): I77.810 - Thoracic aortic ectasia Category: Medical Plan Pertinent data reviewed. Recent EKG with sinus rhythm at 85/Min; left ventricular hypertrophy pattern with some repolarization changes. Available high sensitivity troponins are within normal limits. Last cocaine screen was positive from 08/06. Nothing available since. Per patient, he used about 6 months back. In the past, coronary CTA was unremarkable. Repeat study was requested but not yet completed. Echocardiogram with LVEF of 55-60%. Basal inferior hypokinesis. Moderate diastolic dysfunction. Ascending aortic size 4.2 cm. Shortness of breath could be some combination of cardiac and pulmonary etiologies. He is on diuretics and that may be continued. Advised him to get the coronary CTA done. With regard to blood pressure, on lisinopril/amlodipine. Last time, amlodipine dose was increased. Blood pressure is still high. We can add beta-blockers. Strongly advised him not to use cocaine. He agrees. Follow-up after coronary CTA. Medications: New metoprolol succinate ER (Toprol XL) 50 mg PO DAILY 90 tabs 3RF 90 days
== END 2023-12-06 08:50 | disposition home or self-care (01) ==
PROVIDERS: PCP Internal Medicine; Visit Provider Internal Medicine
DX: R07.2 Precordial pain (principal); R06.09 Other forms of dyspnea; I10 Essential (primary) hypertension; I51.89 Other ill-defined heart diseases; I77.810 Thoracic aortic ectasia
CPT/HCPCS: 99214

== ENCOUNTER → 2023-12-06 08:17 | Outpatient (BNVA) | payer OTHER, SELFPAY | PROVIDERS: Visit Provider Internal Medicine | DX: R07.2 Precordial pain (principal); R06.09 Other forms of dyspnea; I10 Essential (primary) hypertension; I51.89 Other ill-defined heart diseases; I77.810 Thoracic aortic ectasia | CPT/HCPCS: 99212 ==

== ENCOUNTER 2024-01-03 07:36 | Outpatient (REF) | payer OTHER, SELFPAY ==
[2024-01-03 08:49] LABS: Anion Gap 13 (12-20); Blood Urea Nitrogen 13 mg/dL (9-16); Calcium 9.6 mg/dL (8.4-10.2); Carbon Dioxide 29 mmol/L (22-29); Chloride 105 mmol/L (96-108); Estimated Glomerular Filt Rate > 60; Glucose Random 114 mg/dL (60-115); Potassium 4.2 mmol/L (3.3-5.1); Sodium 143 mmol/L (135-145)
== END 2024-01-03 07:37 | disposition home or self-care (01) ==
LOC: HO.LAB 07:36
PROVIDERS: PCP Internal Medicine; Visit Provider Internal Medicine
DX: R07.2 Precordial pain (principal)
CPT/HCPCS: 36415; 80048

== ENCOUNTER 2024-02-16 07:50 | Outpatient (AMB) | payer OTHER, SELFPAY ==
[2024-02-16 08:07] VITALS: BP 168/100; PULSE 81; O2SAT 97; BMI 36.2
--- NOTE | 2024-02-16 08:07 | MHC.PC.OV ---
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 Accompanied by: Self / Same As Patient Allergies bee stings Allergy (Severe, Verified 02/16/24 08:22) Anaphylaxis hydromorphone [From DILAUDID] Adverse Reaction (Severe, Verified 02/16/24 08:22) VIOLENTLY ILL NEEDS TO EAT FIRST Medication List - Last Reconciled 02/16/24 by Yulissa Keyes MD albuterol sulfate 90 mcg/actuation (Ventolin HFA) 2 puffs inhalation Q4-6H PRN albuterol sulfate 2.5 mg (3 mL) inhalation TID amlodipine 10 mg PO DAILY aripiprazole 10 mg PO QAM aspirin (Aspirin Childrens) 81 mg PO DAILY atorvastatin 40 mg PO BEDTIME blood pressure monitor (Blood Pressure Kit) As directed buspirone 10 mg PO TID carisoprodol 350 mg PO TID PRN 30 days cholecalciferol (vitamin D3) 50 mcg PO DAILY clonazepam 2 mg PO BID colchicine 0.6 mg PO DAILY 5 days cyanocobalamin (vitamin B-12) ER 1,000 mcg PO DAILY 90 days epinephrine 0.1 mg (0.1 mL) IM ONCE PRN 30 days fenofibrate 160 mg PO DAILY 90 days folic acid 1 mg PO DAILY furosemide 40 mg PO QAM Grab bar As directed [hand rails As directed] hydroxyzine pamoate 25 mg PO BID PRN ibuprofen 800 mg PO Q8H 30 days indomethacin 50 mg PO BID 10 days lisinopril 40 mg PO DAILY melatonin 5 mg PO BEDTIME PRN metoprolol succinate ER (Toprol XL) 50 mg PO DAILY 90 days miscellaneous medical supply (Blood Pressure Cuff) As directed naloxone 4 mg/actuation (Narcan) 4 mg intranasal Q2M PRN nicotine 1 patch transdermal DAILY 28 days oxcarbazepine 600 mg PO BID oxcarbazepine 300 mg PO BID pantoprazole 40 mg PO DAILY 90 days prazosin 2 mg PO BID Shower Chair As directed umeclidinium-vilanterol 62.5-25 mcg/actuation (Anoro Ellipta) 1 ea PO DAILY varenicline (Chantix Starting Month Box) PO PER PKG DIR zolpidem 10 mg PO BEDTIME PRN Tobacco use date assessed: 02/16/24 Dental Screening Dental Screen Date: 02/16/24 Did you have a dental visit in the last 12 months?: No Did you have a dental problem in the last 6 months where you did not have access to dental care?: No Was dental information given to patient?: Patient has dentist HPI HPI Comments History of Present Illness Details This is a 53-year-old male with hypertension, emphysema, mixed hyperlipidemia and gout that comes today for follow-up on his conditions. 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 I add chlorthalidone for this matter. He denies any chest pain. Complains of some shortness of breath. Has emphysema follow by pulmonology. Stopped smoking few months ago. On statins and fibrates for mixed hyperlipidemia and lipid panel will be ordered. Has not had a gout attack in over 3 months. Has PTSD related to service and this is follow by Psychiatry. He had colonoscopy 2020 showing hyperplastic polyp and tubular adenoma. Needs colonoscopy 2023. Will be referred to Gastroenterology. [facility] Medical History (Updated 02/16/24 @ 08:42 by Yulissa Keyes MD) Acute exacerbation of chronic obstructive pulmonary disease Cocaine abuse Lactic acid acidosis Hypoxemia Opioid overdose COVID-19 COPD (chronic obstructive pulmonary disease) History of pneumonia Positive colorectal cancer screening using Cologuard test Gout Essential hypertension Lymphopenia Mixed hyperlipidemia Pernicious anemia Lumbar degenerative disc disease GERD (gastroesophageal reflux disease) Surgical History Hx of colonoscopy History of esophagogastroduodenoscopy (EGD) History of surgery Status post surgical removal of malignant neoplasm of skin History of shoulder surgery History of arthroscopy of left knee History of total left knee replacement Family History Father Lung cancer Mother Chronic mental illness Alzheimer disease Maternal Grandmother Bone cancer Hypertension Paternal Grandmother Brain cancer Maternal Uncle Cancer Family/Other Chronic mental illness Substance use disorder Social History Household Members: None and Other Household Members Other:: 2 room mates Housing: House Do you presently have visiting nurse or other home services: No Alcohol intake: former Patient Tobacco Use Status: Former Tobacco user Tobacco use type: Cigarette Cigarettes Per Day: 10 e-Cigarette/Vaping Use: Never Used Second Hand Smoke Exposure: No Substance Use Type: Crack/Cocaine service: No Current occupational status: unemployed and disabled Cognitive needs: No Hearing needs: No Vision needs: Yes Questionnaire PHQ-9 Over the last 2 weeks, how often have you been bothered by any of the following problems? 1. Little interest or pleasure in doing things: not at all 2. Feeling down, depressed, or hopeless: not at all 3. Trouble falling or staying asleep, or sleeping too much: not at all 4. Feeling tired or having little energy: not at all 5. Poor appetite or overeating: not at all 6. Feeling bad about yourself - or that you are a failure or have let yourself or your family down: not at all 7. Trouble concentrating on things, such as reading the newspaper or watching television: not at all 8. Moving or speaking so slowly that other people could have noticed. Or the opposite - being so fidgety or restless that you have been moving around a lot more than usual: not at all 9. Thoughts that you would be better off or of hurting yourself in some way: not at all Total score: 0 Depression Screening Interpretation: Negative Depression Screening Done: Yes 15654 - PHQ-9 Billing: Yes Source: Developed by Drs. Shabbir Barreto, Stella Hammer, John Garcia and colleagues, with an educational herbert from [employer]. Thrive Questionnaire Date Thrive assessed: 08/18/23 AUDIT C Alcohol Use Questionnaire (AUDIT-C) 1. How often do you have a drink containing alcohol?: Never Total Score: 0 Score Reviewed/Action Taken: No EN-7 AMB Questionnaire EN-7 Date EN - 7 assessed: 02/16/24 Feeling nervous, anxious, or on edge: 1 = Several days Not being able to stop or control worryin = Several days Worrying too much about different things: 1 = Several days Trouble relaxin = Several days Being so restless that it is hard to sit still: 1 = Several days Becoming easily annoyed or irritable: 1 = Several days Feeling afraid as if something awful might happen: 0 = Not at all Total EN-7 score (0-4 normal; 5-9 mild; 10-14 moderate; 15-21 severe): 6 Source: Developed by Drs. Shabbir Barreto, Stella Hammer, John Garcia and colleagues, with an educational herbert from [employer]. EN-7 Assessment Billing EN-7 Assessment Tool: EN-7 Assessment 21131 Review of Systems Const All systems reviewed & are unremarkable except as noted in HPI and below Card Denies chest pain at rest, Denies chest pain with activity, Denies edema, Denies irregular heart rhythm, Denies claudication, Denies dyspnea, Denies dyspnea on exertion, Denies orthopnea, Denies paroxysmal nocturnal dyspnea and Denies slow heart rate Resp Denies cough, Denies dyspnea and Denies dyspnea on exertion Physical exam (Primary Care) Vital Signs: Last Vital Signs Pulse 81 02/16/24 08:07 BP 168/100 H 02/16/24 08:07 Pulse Ox 97 02/16/24 08:07 Oxygen Delivery Method Room Air 02/16/24 08:07 BMI result Body Mass Index 36.2 Tobacco/Smoking Status: Tobacco use Status Tobacco use date assessed 02/16/24 02/16/24 08:13 Patient Tobacco Use Status Former Tobacco user 02/16/24 08:13 Tobacco use type Cigarette 02/16/24 08:13 e-Cigarette/Vaping Use Never Used 02/16/24 08:13 PHQ-9: PHQ-9 Score PHQ-9: Total score 0 02/16/24 08:13 Depression Screening Interpretation: Negative Thrive Assessment: Date of Thrive Assessment Date Thrive assessed 08/18/23 02/16/24 08:13 Resp Effort & Inspection: normal respiratory effort Auscultation: clear to auscultation bilaterally Cardio Jugular venous distension: no JVD Rate: regular rate Rhythm: regular rhythm Heart sounds: S1 normal heart sound present and S2 normal heart sound present Extrem General: Yes full ROM Assessment and Plan Assessment & Plan (1) Emphysema lung: Code(s): J43.9 - Emphysema, unspecified Qualifiers: Emphysema type: unspecified Qualified Code(s): J43.9 - Emphysema, unspecified Plan: Continue Anoro. Use rescue inhaler as needed. (2) Essential hypertension: Code(s): I10 - Essential (primary) hypertension Plan: Continue lisinopril and amlodipine. Start chlorthalidone. Blood pressure goal is equal or less than 130/80. (3) Gout: Code(s): M10.9 - Gout, unspecified Qualifiers: Gout site: unspecified site Gout etiology: idiopathic Chronicity: chronic Presence of tophus: without tophus Qualified Code(s): M1A.00X0 - Idiopathic chronic gout, unspecified site, without tophus (tophi) Plan: Uric acid ordered. (4) Mixed hyperlipidemia: Code(s): E78.2 - Mixed hyperlipidemia Plan: Continue statins and fibrates. Repeat lipid panel. Start low-cholesterol diet. (5) Tubular adenoma of colon: Code(s): D12.6 - Benign neoplasm of colon, unspecified Plan: Refer to Gastroenterology for surveillance colonoscopy. Orders: Orders Lipid Panel Today E78.5 - Hyperlipidemia, unspecified Vitamin D 25-OH Total Today E55.9 - Vitamin D deficiency, unspecified Comprehensive [place]. Panel Fast Today J43.9 - Emphysema, unspecified Uric Acid Today M10.9 - Gout, unspecified Referrals Gastroenterology Referral D12.6 - Benign neoplasm of colon, unspecified Medications: New chlorthalidone 25 mg PO DAILY 90 days 90 tabs 1RF I10 - Essential (primary) hypertension Coding Level of Care Code Est Pt Level 4 (98007) Complex EM visit Add On G2211 Diagnoses Pulmonary emphysema, unspecified emphysema type J43.9 Emphysema type: unspecified Essential hypertension I10 Idiopathic chronic gout without tophus, unspecified site M1A.00X0 Gout site: unspecified site Gout etiology: idiopathic Chronicity: chronic Presence of tophus: without tophus Mixed hyperlipidemia E78.2 Tubular adenoma of colon D12.6 Additional Codes EN-7 Assessment Billing - EN-7 Assessment Tool: EN-7 Assessment 07806 ([id number]) Time Spent (min) 23
[2024-02-16 08:33] VITALS: BP 150/90
== END 2024-02-16 08:36 | disposition home or self-care (01) ==
PROVIDERS: PCP Internal Medicine; Visit Provider Internal Medicine
DX: J43.9 Emphysema, unspecified (principal); I10 Essential (primary) hypertension; M1A.00X0 Idiopathic chronic gout, unspecified site, without tophus (tophi); E78.2 Mixed hyperlipidemia; D12.6 Benign neoplasm of colon, unspecified
CPT/HCPCS: 99214; G2211

== ENCOUNTER 2024-02-21 07:46 | Outpatient (REF) | payer OTHER, SELFPAY ==
[2024-02-21 09:18] LABS: Alanine Aminotransferase 36 U/L (0-40); Albumin Level 4.2 g/dL (3.5-5.0); Alkaline Phosphatase 53 U/L (39-117); Anion Gap 13 (12-20); Aspartate Amino Transferase 18 U/L (5-37); Bilirubin Total 0.3 mg/dL (0.0-1.0); Blood Urea Nitrogen 22 mg/dL (9-16); Calcium 9.2 mg/dL (8.4-10.2); Carbon Dioxide 27 mmol/L (22-29); Chloride 106 mmol/L (96-108); Cholesterol 120 mg/dL (<200); Estimated Glomerular Filt Rate > 60; Glucose Fasting 123 mg/dL (60-99); HDL Cholesterol 42 mg/dL (>40); LDL Cholesterol Calculated 41 mg/dL (<100); Potassium 4.1 mmol/L (3.3-5.1); Sodium 142 mmol/L (135-145); Total Protein 7.5 g/dL (6.5-8.0); Triglycerides 188 mg/dL (<150)
[2024-02-21 10:49] LABS: Uric Acid 10.7 mg/dL (3.4-7.0)
== END 2024-02-21 07:47 | disposition home or self-care (01) ==
LOC: HO.LAB 07:46
PROVIDERS: PCP Internal Medicine; Visit Provider Internal Medicine
DX: E78.5 Hyperlipidemia, unspecified (principal); E55.9 Vitamin D deficiency, unspecified; M10.9 Gout, unspecified; J43.9 Emphysema, unspecified
CPT/HCPCS: 36415; 80053; 80061; 82306; 84550

== ENCOUNTER → 2024-04-13 11:58 | Outpatient (RCR) | payer OTHER, SELFPAY ==
[2020-11-08 14:08] VITALS: BP 136/82; PULSE 79; RESP 18; TEMP 36.6; O2SAT 96
--- NOTE | 2020-11-08 14:23 | P.CNHO_ITS ---
Subjective - Subjective Chief complaint: I do not know why I am here Patient: new to practice Consult date: 11/08/20 Primary Care Provider: Yulissa Keyes MD HPI - Consult Narrative Reason for consult: Lymphopenia/anemia Narrative: Froilan CHEATHAM is a 50 year old male referred for evaluation of mild intermittent lymphopenia and recent anemia. Patient states that he has not been told of abnormal blood work or anemia in the past. He has had no recent infections. His main concern is diffuse body aches from arthritis. He has good appetite, he is tired because of his bone pains but he denies constitutional symptoms such as fever, chills, night sweats or unexplained weight loss. He is not on any new medications. He denies any new complaints today. Review of Systems - Constitutional Reports as per HPI, Reports no additional constitutional complaints - Cardiovascular Reports no additional cardiovascular complaints - Respiratory Reports no additional respiratory complaints - Gastrointestinal Reports no additional gastrointestinal complaints Oncology Screenings - ECOG Performance Status ECOG Performance Status: 1 [facility] Medical History: Medical History (Last Reviewed 10/24/20 @ 12:27 by Franci Cedeño PA-C) COPD (chronic obstructive pulmonary disease) Essential hypertension GERD (gastroesophageal reflux disease) Gout History of pneumonia Lumbar degenerative disc disease Lymphopenia Mixed hyperlipidemia Pernicious anemia Positive colorectal cancer screening using Cologuard test Family History: Family History (Last Updated 11/08/20 @ 14:14 by Diann Montesinos) Father Lung cancer Mother Chronic mental illness Alzheimer disease Maternal Grandmother Bone cancer Hypertension Paternal Grandmother Brain cancer Maternal Uncle Cancer Family/Other Chronic mental illness Surgical History: Surgical History (Last Reviewed 10/24/20 @ 12:27 by Franci Cedeño PA-C) History of arthroscopy of left knee History of shoulder surgery History of surgery History of total left knee replacement Status post surgical removal of malignant neoplasm of skin Social History: Social History (Last Updated 11/08/20 @ 14:14 by Diann Montesinos) Living Situation History: Household Members: None Household Members: Other Household Members Other:: 2 room mates Housing: House Alcohol History: Alcohol intake: former Alcohol History Details: Alcohol intake frequency: former alcohol drinker Tobacco History: Smoking Status: Current every day smoker Tobacco Type: Cigarette Packs Per Day: 1 Substance Use History: Use of substances other than those prescribed or required for medical reasons : No Occupation Assessmet: service: No Current occupational status: unemployed Current occupational status: disabled Smoking status: Current every day smoker Home Medications and Allergies Home Medications Medication Instructions Recorded Confirmed Type Anoro Ellipta 1 puff PO DAILY 08/25/20 11/08/20 History aripiprazole 1 tab PO QAM 08/25/20 11/08/20 History buspirone 1 tab PO DAILY 08/25/20 11/08/20 History clonazepam 1 tab PO BID 08/25/20 11/08/20 History folic acid 1 tab PO DAILY 08/25/20 11/08/20 History hydroxyzine pamoate 1 cap PO BID PRN 08/25/20 11/08/20 History oxcarbazepine 1 tab PO BID 08/25/20 11/08/20 History prazosin 1 cap PO BID 08/25/20 11/08/20 History zolpidem 1 tab PO BEDTIME PRN 08/25/20 11/08/20 History cyanocobalamin (vitamin B-12) 1,000 mcg PO DAILY 09/10/20 11/08/20 History 1,000 mcg tablet,extended release oxcarbazepine 600 mg tablet 600 mg PO BID 09/10/20 11/08/20 History Allergies Allergy/AdvReac Type Severity Reaction Status Date / Time bee stings Allergy Severe Anaphylaxis Verified 10/17/20 14:48 hydromorphone [From DILAUDID] AdvReac Severe VIOLENTLY Verified 10/17/20 14:48 ILL NEEDS TO EAT FIRST Physical Exam Vital signs: Vital Signs Temp 97.8 F 11/08/20 14:08 Pulse 79 11/08/20 14:08 Resp 18 11/08/20 14:08 BP 136/82 11/08/20 14:08 Pulse Ox 96 11/08/20 14:08 Intake & Output 11/07/20 11/08/20 11/08/20 18:59 06:59 18:59 Other: Weight 132.2 kg [place] Weight in Grams [id number] Weight 132.2 kg - Constitutional Present: no acute distress, obese - Routine HEENT Exam Head: Present: normal inspection Eye: Present: EOMI, PERRL - Routine Respiratory Exam Absent: accessory muscle use - Routine Cardiovascular Exam Cardiovascular: Present: S1, S2 Hem/Onc Consult Result - Labs CBC & Chem 7: 11/08/20 14:45 Assessment and Plan (1) Lymphopenia Status: Acute 1. This is a 50-year-old male who was referred for evaluation of lymphopenia t hat was noticed on blood work on 1 or 2 occasions. CBC today shows normal WBC count with normal differential. He has borderline anemia. Iron studies are normal. Rest of hematological workup is pending. He has no symptoms worrisome for hematological malignancy/disorder. Rest of results to be discussed during follow-up visit. Thank you for this referral.
--- NOTE | 2020-11-08 14:43 | MHC.HEMONCMA ---
Patient came in for a consult today, states he is doing well. Clinical summary was reviewed and updated. He will have blood work today and have a telehealth in 1 month.
[2020-11-08 14:53] LABS: MANUAL DIFF FLAG NO
[2020-11-08 15:24] LABS: Basophils Percent Auto 0.4 % (0-2); Eosinophils Absolute Auto 0.2 X10*3/uL (0.0-0.4); Eosinophils Percent Auto 2.2 % (0-4); Hematocrit 41.6 % (42-52); Hemoglobin 13.5 g/dl (14.0-18.0); Imm Gran Abs Auto 0.06 X10*3/uL (0.00-0.03); Imm Gran Pct Auto 0.8 % (0.0-0.4); Lymphocytes Absolute Auto 1.9 X10*3/uL (1.2-4.9); Lymphocytes Percent Auto 24.4 % (20-40); Mean Corpuscular HGB Conc 32.5 g/dl (31.0-36.0); Mean Corpuscular Hemoglobin 29.7 pg (27.0-33.0); Mean Corpuscular Volume 91.6 fL (80-98); Mean Platelet Volume 10.5 fL (9.4-12.4); Monocytes Absolute Auto 0.5 X10*3/uL (0.1-1.2); Monocytes Percent Auto 6.7 % (2-11); Neutrophils Absolute Auto 5.2 X10*3/uL (2.0-8.3); Neutrophils Percent Auto 65.5 % (45-73); Platelet Count 260 X10*3/uL (160-400); Red Blood Count 4.54 X10*6/uL (4.60-5.80); Red Cell Distribution Width 13.3 % (11.0-16.0); White Blood Count 7.9 X10*3/uL (4.8-10.8)
[2020-11-08 15:36] LABS: Iron 68 mcg/dL (45-160); Percent Iron Saturation 19 % (15-50); Total Iron Binding Capacity 350 mcg/dL (228-428); Unsaturated Iron Binding 282 ug/dL
[2020-11-08 16:02] LABS: Vitamin B12 305 pg/mL (200-900)
[2020-11-11 11:31] LABS: Prot Elec - Albumin 4.1 g/dL (3.8-4.8); Prot Elec - Alpha1 0.3 g/dL (0.2-0.3); Prot Elec - Alpha2 0.6 g/dL (0.5-0.9); Prot Elec - Beta 1 0.4 g/dL (0.4-0.6); Prot Elec - Beta 2 0.3 g/dL (0.2-0.5); Prot Elec - Gamma 0.9 g/dL (0.8-1.7); Prot Elec - Total Protein 6.6 g/dL (6.1-8.1)
[2020-11-11 12:57] LABS: IgA 141 mg/dL (47-310); IgG 970 mg/dL (600-1640); IgM 82 mg/dL (50-300)
== END | disposition home or self-care (01) ==
LOC: HO.ONC 11-08 13:57
PROVIDERS: PCP Internal Medicine; Referring Provider Internal Medicine; Visit Provider Internal Medicine
DX: D72.810 Lymphocytopenia (principal); D64.9 Anemia, unspecified
CPT/HCPCS: 36415; 82607; 82784; 83540; 84155; 84165; 85025; 86334; 99202

== ENCOUNTER 2024-05-26 10:25 | Outpatient (AMB) | payer OTHER, SELFPAY ==
[2024-05-26 10:27] VITALS: BP 118/74; PULSE 94; O2SAT 95; BMI 38.4
--- NOTE | 2024-05-26 10:27 | MHC.OFFVIS ---
Vital Signs 05/26/24 10:27 Height 6 ft 2 in Weight 298 lb 11.622 oz BMI 38.4 BP 118/74 Blood Pressure Location Rt brachial Position Sitting Pulse 94 Pulse Source Doppler Pulse Oximetry (%) 95 Oxygen Delivery Method Room Air Intake Visit Reasons: copd Allergies bee stings Allergy (Severe, Verified 02/16/24 08:22) Anaphylaxis hydromorphone [From DILAUDID] Adverse Reaction (Severe, Verified 02/16/24 08:22) VIOLENTLY ILL NEEDS TO EAT FIRST HPI HPI copd: Details: 53-year-old gentleman, recent 30+ pack-year smoker, followed for mild emphysema without fixed obstruction. Patient is also undergoing cardiac workup. Patient states that since the last office visit he significantly improve his lifestyle that lead to improvement in his symptoms. He continues to use Anoro and albuterol MDI. He denies acute exacerbations. [facility]LY [facility], LATER [facility] Medical History (Updated 05/26/24 @ 10:08 by Noy Arthur PA-C) Emphysema lung Personal history of nicotine dependence Tubular adenoma of colon Cocaine abuse Lactic acid acidosis Hypoxemia Opioid overdose COVID-19 COPD (chronic obstructive pulmonary disease) History of pneumonia Positive colorectal cancer screening using Cologuard test Gout Essential hypertension Lymphopenia Mixed hyperlipidemia Pernicious anemia Lumbar degenerative disc disease GERD (gastroesophageal reflux disease) Surgical History (Updated 05/26/24 @ 10:04 by Noy Arthur PA-C) History of colonoscopy History of esophagogastroduodenoscopy (EGD) History of surgery Status post surgical removal of malignant neoplasm of skin History of shoulder surgery History of arthroscopy of left knee History of total left knee replacement Family History Father Lung cancer Mother Chronic mental illness Alzheimer disease Maternal Grandmother Bone cancer Hypertension Paternal Grandmother Brain cancer Maternal Uncle Cancer Family/Other Chronic mental illness Substance use disorder Social History Household Members: None and Other Household Members Other:: 2 room mates Housing: House Do you presently have visiting nurse or other home services: No Alcohol intake: former Patient Tobacco Use Status: Former Tobacco user Tobacco use type: Cigarette Cigarettes Per Day: 10 e-Cigarette/Vaping Use: Never Used Second Hand Smoke Exposure: No Substance Use Type: Crack/Cocaine service: No Current occupational status: unemployed and disabled Cognitive needs: No Hearing needs: No Vision needs: Yes Review of Systems Card Denies pedal edema and Reports dyspnea on exertion Resp Denies cough, Denies hemoptysis, Denies excessive phlegm production, Reports dyspnea on exertion and Denies wheezing Neuro Denies seizure-like activity Endo Denies heat intolerance Aller/Immun Denies wheezing Physical Exam Vital Signs: Last Vital Signs Pulse 94 05/26/24 10:27 BP 118/74 05/26/24 10:27 Pulse Ox 95 05/26/24 10:27 Oxygen Delivery Method Room Air 05/26/24 10:27 BMI result Body Mass Index 38.4 Const General: no acute distress and alert Nutritional Appearance: obese Orientation/consciousness: Other orientation findings ( oriented) HEENT Head: Yes atraumatic Eyes General: appearance normal, both eyes and all related structures Sclerae: sclerae normal EOM: EOMs intact bilaterally Neck Neck: Yes supple Lymphatic: no lymphadenopathy noted Resp Effort & Inspection: normal respiratory effort and no use of accessory muscles Auscultation: clear to auscultation bilaterally Cardio Rate: regular rate Rhythm: regular rhythm Heart sounds: no gallops, no murmurs and no rubs Skin General skin exam: other ( warm) Extrem General: No clubbing, No cyanosis and No edema Assessment & Plan Assessment & Plan (1) Emphysema lung: Code(s): J43.9 - Emphysema, unspecified Category: Medical Qualifiers: Emphysema type: unspecified Qualified Code(s): J43.9 - Emphysema, unspecified Plan: Mild emphysema without fixed obstruction. Pulmonary symptoms control on current regimen of Anoro and albuterol MDI. Will consider pulmonary rehab after cardiologic evaluation. (2) CUTLER (dyspnea on exertion): Code(s): R06.09 - Other forms of dyspnea Category: Medical Plan: Appears to be multifactorial with contribution from underlying pulmonary, cardiac, and possible obesity deconditioning etiologies. Patient is undergoing cardiac workup. Coding Level of Care Code Est Pt Level 4 (29023) Diagnoses Pulmonary emphysema, unspecified emphysema type J43.9 Emphysema type: unspecified CUTLER (dyspnea on exertion) R06.09
== END 2024-05-26 10:57 | disposition home or self-care (01) ==
PROVIDERS: PCP Internal Medicine; Visit Provider Internal Medicine Pulmonary Disease
DX: J43.9 Emphysema, unspecified (principal); R06.09 Other forms of dyspnea
CPT/HCPCS: 99214

== ENCOUNTER → 2024-05-26 10:25 | Outpatient (BNVA) | payer OTHER, SELFPAY | PROVIDERS: PCP Internal Medicine; Visit Provider Internal Medicine Pulmonary Disease | DX: J43.9 Emphysema, unspecified (principal); R06.09 Other forms of dyspnea | CPT/HCPCS: 99212 ==

== ENCOUNTER 2024-06-02 08:26 | Outpatient (AMB) | payer OTHER, SELFPAY ==
--- NOTE | 2024-06-02 08:29 | A.OFFVIS_ITS ---
Vital Signs 06/02/24 08:30 Height 6 ft 2 in Weight 295 lb 6.711 oz BMI 37.9 Blood Pressure Location Lt brachial Position Sitting Intake Visit Reasons: pre colonoscopy Intake Note: Froilan presents in the office as a pre colonoscopy appt. CC: HE states that he is just due for a colonoscopy - no GI concerns at this t landry. Lever Miller Required: No Allergies bee stings Allergy (Severe, Verified 06/02/24 08:30) Anaphylaxis hydromorphone [From DILAUDID] Adverse Reaction (Severe, Verified 06/02/24 08:30) VIOLENTLY ILL NEEDS TO EAT FIRST HPI HPI pre colonoscopy: Details: 54 yr old m here for f/u HE had adenomas removed 2020 due for repeat [place] now for reassessment He also has chronic GERD< well controlled with PPI, taking MV and vit D (recent Vit D was 16) He has chronic anemia but denies nose bleeds, rectal bleeding, etc no abdominal pain or abn bowel habits EXAM: GENERAL: The patient is well developed and nontoxic, obese VITAL SIGNS:see workflow HEENT: Nonicteric sclerae, PERRLA, EOMI. Oropharynx clear. Moist mucous membranes. Conjunctivae appear well perfused. No thyroid mass. CHEST: Chest wall is nontender. HEART: Regular rate and rhythm without murmurs. LUNGS: Clear to auscultation bilaterally. ABDOMEN: Soft, positive bowel sounds, nontender, no organomegaly.no flank tenderness SKIN: No rash, no excessive bruising, petechiae, or purpura. NEUROLOGIC: Cranial nerves II-XII intact without motor/sensory deficit. Psych: normal affect A/P: 1/ GERD_- controlled 2/ Colon polyps 3/ Chronic anemia, no overt GI blood loss, ?due to B12 defc, maybe not absorbing PLAN: 1/ check labs inc b12, ferriitn 2/ COlonoscopy with bariatric bed, miralax prep FOR[facility]LY [facility] Medical History Emphysema lung Personal history of nicotine dependence Tubular adenoma of colon Cocaine abuse Lactic acid acidosis Hypoxemia Opioid overdose COVID-19 COPD (chronic obstructive pulmonary disease) History of pneumonia Positive colorectal cancer screening using Cologuard test Gout Essential hypertension Lymphopenia Mixed hyperlipidemia Pernicious anemia Lumbar degenerative disc disease GERD (gastroesophageal reflux disease) Surgical History History of colonoscopy History of esophagogastroduodenoscopy (EGD) History of surgery Status post surgical removal of malignant neoplasm of skin History of shoulder surgery History of arthroscopy of left knee History of total left knee replacement Family History Father Lung cancer Mother Chronic mental illness Alzheimer disease Maternal Grandmother Bone cancer Hypertension Paternal Grandmother Brain cancer Maternal Uncle Cancer Family/Other Chronic mental illness Substance use disorder Social History Household Members: None and Other Household Members Other:: 2 room mates Housing: House Do you presently have visiting nurse or other home services: No Alcohol intake: former Patient Tobacco Use Status: Former Tobacco user Tobacco use type: Cigarette Cigarettes Per Day: 10 e-Cigarette/Vaping Use: Never Used Second Hand Smoke Exposure: No Substance Use Type: Crack/Cocaine service: No Current occupational status: unemployed and disabled Cognitive needs: No Hearing needs: No Vision needs: Yes Physical Exam Vital Signs: BMI result Body Mass Index 37.9 Assessment & Plan Assessment & Plan (1) Pernicious anemia: Code(s): D51.0 - Vitamin B12 deficiency anemia due to intrinsic factor deficiency Category: Medical Plan: labs Orders: Orders Ferritin Today D51.0 - Vitamin B12 deficiency anemia due to intrinsic factor deficiency Erythrocyte Sedimentation Rate Today D51.0 - Vitamin B12 deficiency anemia due to intrinsic factor deficiency Complete Blood Count Auto Diff Today D51.0 - Vitamin B12 deficiency anemia due to intrinsic factor deficiency Vitamin B12 and Folate Today D51.0 - Vitamin B12 deficiency anemia due to int rinsic factor deficiency Medications: New polyethylene glycol 3350 (Miralax) mix the full container with 64 ounces of gatorade for colonoscopy prep the evening before the test and drink 238 grams PO ONCE 238 grams 0RF bisacodyl (Dulcolax (bisacodyl)) take at 6 pm day before colonoscopy 20 mg (4 x 5 mg) PO ONCE 1 day 4 tabs 0RF Coding Level of Care Code Est Pt Level 3 (63270) Diagnoses Pernicious anemia D51.0
[2024-06-02 08:30] VITALS: BMI 37.9
== END 2024-06-02 08:57 | disposition home or self-care (01) ==
PROVIDERS: PCP Internal Medicine; Visit Provider Internal Medicine Gastroenterology
DX: D51.0 Vitamin B12 deficiency anemia due to intrinsic factor deficiency (principal)
CPT/HCPCS: 99213

== ENCOUNTER → 2024-06-02 08:26 | Outpatient (BNVA) | payer OTHER, SELFPAY | PROVIDERS: PCP Internal Medicine; Visit Provider Internal Medicine Gastroenterology | DX: D51.0 Vitamin B12 deficiency anemia due to intrinsic factor deficiency (principal) | CPT/HCPCS: 99212 ==

== ENCOUNTER 2024-08-21 08:07 | Outpatient (AMB) | payer OTHER, SELFPAY ==
[2024-08-21 08:32] VITALS: BP 132/68; PULSE 82; O2SAT 98; BMI 38.4
--- NOTE | 2024-08-21 08:32 | A.OFFPC_ITS ---
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 Required: No Accompanied by: Self / Same As Patient Allergies bee stings Allergy (Severe, Verified 08/21/24 09:16) Anaphylaxis hydromorphone [From DILAUDID] Adverse Reaction (Severe, Verified 08/21/24 09:16) VIOLENTLY ILL NEEDS TO EAT FIRST Medication List - Last Reconciled 08/21/24 by Yulissa Keyes MD albuterol sulfate 90 mcg/actuation (Ventolin HFA) 2 puffs inhalation Q4-6H PRN albuterol sulfate 2.5 mg (3 mL) inhalation TID amlodipine 10 mg PO DAILY aripiprazole 15 mg PO QAM aspirin (Aspirin Childrens) 81 mg PO DAILY atorvastatin 40 mg PO BEDTIME bisacodyl (Dulcolax (bisacodyl)) 20 mg (4 x 5 mg) PO ONCE 1 day blood pressure monitor (Blood Pressure Kit) As directed bupropion HCl XL 150 mg PO QAM buspirone 10 mg PO TID carisoprodol 350 mg PO TID PRN 30 days chlorthalidone 25 mg PO DAILY 90 days cholecalciferol (vitamin D3) 50 mcg PO DAILY clonazepam 2 mg PO BID colchicine 0.6 mg PO DAILY 5 days cyanocobalamin (vitamin B-12) ER 1,000 mcg PO DAILY 90 days epinephrine 0.1 mg (0.1 mL) IM ONCE PRN 30 days fenofibrate 160 mg PO DAILY 90 days folic acid 1 mg PO DAILY furosemide 40 mg PO QAM Grab bar As directed [hand rails As directed] hydroxyzine pamoate 25 mg PO BID PRN ibuprofen 800 mg PO Q8H 30 days indomethacin 50 mg PO BID 10 days lisinopril 40 mg PO DAILY meclizine 25 mg PO BID PRN 5 days melatonin 5 mg PO BEDTIME PRN metoprolol succinate ER (Toprol XL) 50 mg PO DAILY 90 days miscellaneous medical supply (Blood Pressure Cuff) As directed naloxone 4 mg/actuation (Narcan) 4 mg intranasal Q2M PRN nicotine 1 patch transdermal DAILY 28 days oxcarbazepine 600 mg PO BID oxcarbazepine 300 mg PO BID pantoprazole 40 mg PO DAILY 90 days polyethylene glycol 3350 (Miralax) 238 grams PO ONCE prazosin 2 mg PO BID Shower Chair As directed umeclidinium-vilanterol 62.5-25 mcg/actuation (Anoro Ellipta) 1 ea PO DAILY zolpidem 10 mg PO BEDTIME PRN Tobacco use date assessed: 08/21/24 Dental Screening Dental Screen Date: 08/21/24 Did you have a dental visit in the last 12 months?: Yes Did you have a dental problem in the last 6 months where you did not have access to dental care?: No Was dental information given to patient?: Patient has dentist HPI HPI Comments History of Present Illness Details The patient is a 54-year-old male presenting for his physical exam. He has chronic back pain and bilateral knee pain. The patient's back pain radiates to both legs and is particularly severe, leading to considerable discomfort and functional limitations. The patient reports that the pain began some time ago and has escalated in severity recently, impairing daily activities and ambulation. The pain in the knees persists even after a left knee replacement surgery, with the right knee also contributing significantly to the symptoms. Interventions to this point have included the use of medication and surgical intervention for the left knee, but pain persists. The patient has tried an electronic TENS unit without noted improvement, leading to its removal. The patient ambulates with a cane due to instability, indicating functional impairment. A specific exacerbating factor for the knee pain includes weight- bearing activities. The patient has reported no effective alleviation measures to date beyond medications. Patient also has ascending aortic dilation and emphysema. - Need to update the tetanus vaccine, as it has been over 10 years since the last dose. - Colonoscopy scheduled for follow-up of tubular adenoma but needs rescheduling. [facility] Medical History (Updated 08/21/24 @ 10:29 by Yulissa Keyes MD) Emphysema lung Personal history of nicotine dependence Tubular adenoma of colon Cocaine abuse Lactic acid acidosis Hypoxemia Opioid overdose COVID-19 COPD (chronic obstructive pulmonary disease) History of pneumonia Positive colorectal cancer screening using Cologuard test Gout Essential hypertension Lymphopenia Mixed hyperlipidemia Pernicious anemia Lumbar degenerative disc disease GERD (gastroesophageal reflux disease) Surgical History History of colonoscopy History of esophagogastroduodenoscopy (EGD) History of surgery Status post surgical removal of malignant neoplasm of skin History of shoulder surgery History of arthroscopy of left knee History of total left knee replacement Family History Father Lung cancer Mother Chronic mental illness Alzheimer disease Maternal Grandmother Bone cancer Hypertension Paternal Grandmother Brain cancer Maternal Uncle Cancer Family/Other Chronic mental illness Substance use disorder Social History Household Members: None and Other Household Members Other:: 2 room mates Housing: House Do you presently have visiting nurse or other home services: No Alcohol intake: former Patient Tobacco Use Status: Former Tobacco user Tobacco use type: Cigarette Cigarettes Per Day: 10 e-Cigarette/Vaping Use: Never Used Second Hand Smoke Exposure: No Substance Use Type: Crack/Cocaine service: No Current occupational status: unemployed and disabled Cognitive needs: No Hearing needs: No Vision needs: Yes Questionnaire PHQ-9 Over the last 2 weeks, how often have you been bothered by any of the following problems? 1. Little interest or pleasure in doing things: nearly every day 2. Feeling down, depressed, or hopeless: more than half the days 3. Trouble falling or staying asleep, or sleeping too much: more than half the days 4. Feeling tired or having little energy: more than half the days 5. Poor appetite or overeating: more than half the days 6. Feeling bad about yourself - or that you are a failure or have let yourself or your family down: several days 7. Trouble concentrating on things, such as reading the newspaper or watching television: not at all 8. Moving or speaking so slowly that other people could have noticed. Or the opposite - being so fidgety or restless that you have been moving around a lot more than usual: not at all 9. Thoughts that you would be better off or of hurting yourself in some way: not at all Total score: 12 Depression Screening Interpretation: Positive Depression Screening Follow-up: Existing condition, In treatment, Community Mental Health Worker F/U and Follow- up Visit Requested Depression Screening Done: Yes 55685 - PHQ-9 Billing: Yes Source: Developed by Drs. Shabbir Barreto, John Watson and colleagues, with an educational herbert from [employer]. Thrive Questionnaire Date Thrive assessed: 08/21/24 I am a: Patient What is your living situation today?: I have a steady place to live Within the past 12 months, did the food you bought not last and you didn't have the money to get more?: Never true Within the past 12 months, did you worry whether your food would run out before you got money to buy more?: Never true Do you have trouble paying for medicines?: No Do you have trouble getting transportation to medical appointments?: No Do you have trouble paying your heating and electricity bill?: No Do you have trouble taking care of your child, family member or friend?: No Do you have trouble with day-to-day activities such as bathing, preparing meals, shopping, managing finances, etc.?: No Are you currently unemployed and looking for a job?: No Are you interested in more education?: No Currently or been in a relationship where the following occur: No concerns reported THRIVE Score: 0 AUDIT C Alcohol Use Questionnaire (AUDIT-C) 1. How often do you have a drink containing alcohol?: Never Total Score: 0 Score Reviewed/Action Taken: No EN-7 AMB Questionnaire EN-7 Date EN - 7 assessed: 08/21/24 Feeling nervous, anxious, or on edge: 1 = Several days Not being able to stop or control worryin = Several days Worrying too much about different things: 1 = Several days Trouble relaxin = Several days Being so restless that it is hard to sit still: 1 = Several days Becoming easily annoyed or irritable: 1 = Several days Feeling afraid as if something awful might happen: 0 = Not at all Total EN-7 score (0-4 normal; 5-9 mild; 10-14 moderate; 15-21 severe): 6 Source: Developed by Drs. Shabbir Barreto, John Waston and colleagues, with an educational herbert from [employer]. EN-7 Assessment Billing EN-7 Assessment Tool: EN-7 Assessment 07093 Review of Systems Const All systems reviewed & are unremarkable except as noted in HPI and below Card Denies chest pain at rest, Denies chest pain with activity, Denies edema, Denies irregular heart rhythm, Denies claudication, Denies dyspnea, Denies dyspnea on exertion, Denies orthopnea, Denies paroxysmal nocturnal dyspnea and Denies slow heart rate Resp Denies cough, Denies dyspnea and Denies dyspnea on exertion GI Denies abdominal pain, Denies change in bowel habits, Denies excessive flatus, Denies nausea and Denies vomiting Denies urinary hesitancy, Denies urinary incontinence and Denies urinary urgency Musc Denies abnormal gait, Denies atrophy, Denies deformity and Denies limited range of motion Skin/Breast Denies bleeding lesions, Denies changing lesions and Denies rash Neuro Denies abnormal gait, Denies behavioral changes and Denies lack of coordination Psych Denies behavioral changes Physical exam (Primary Care) Vital Signs: Last Vital Signs Pulse 82 08/21/24 08:32 BP 132/68 08/21/24 08:32 Pulse Ox 98 08/21/24 08:32 Oxygen Delivery Method Room Air 08/21/24 08:32 BMI result Body Mass Index 54.7 BMI Assessment/Plan discussion: High BMI High, discussed plan: lifestyle, weight reduction, dietary and physical activity Tobacco/Smoking Status: Tobacco use Status Tobacco use date assessed 08/21/24 08/21/24 08:36 Patient Tobacco Use Status Former Tobacco user 08/21/24 08:36 Tobacco use type Cigarette 08/21/24 08:36 e-Cigarette/Vaping Use Never Used 08/21/24 08:36 PHQ-9: PHQ-9 Score PHQ-9: Total score 12 08/21/24 09:28 Depression Screening Interpretation: Positive Depression Screening Follow-up: Existing condition, In treatment, Community Mental Health Worker F/U and Follow- up Visit Requested Thrive Assessment: Date of Thrive Assessment Date Thrive assessed 08/21/24 08/21/24 08:36 Currently or been in a relationship where the following occur: No concerns reported Const Limitations: ambulation with cane HENMT Head: Yes normal to inspection, Yes normocephalic and Yes atraumatic Ears: external ears normal Eyes General: appearance normal, both eyes and all related structures Eyelids: Yes eyelids normal Conjunctivae: conjunctivae normal Neck Neck: Yes normal visual inspection and Yes supple Resp Effort & Inspection: normal respiratory effort Auscultation: clear to auscultation bilaterally Cardio Jugular venous distension: no JVD Rate: regular rate Rhythm: regular rhythm Heart sounds: S1 normal heart sound present and S2 normal heart sound present GI Inspection: Yes normal to inspection Palpation (GI): Soft to palpation and nontender Auscultation: normal bowel sounds Skin General skin exam: no rashes or lesions noted Neuro General: no focal motor deficits Extrem General: Yes full ROM Psych Appearance: grossly normal Immunizations tetanus-diphtheria toxoids-Td 2 Lf unit-2 Lf unit/0.5 mL IM suspension Performing Provider: Yulissa Keyes MD Per[facility] Administered by: Nena Pelletier CMA on 08/21/24 09:28 Dose Route Admin Location Dispensed Lot Number Expiration Date [employer] Dental Billing Specialist 0.5 mL IM Left Deltoid 0.5 mL [id number] 09/25/24 [address]-2 [employer] VIS Given Date VIS Provided VIS Publication Date 08/21/24 Single Vaccine 21 Eligibility Eligibility Date Funding Source Not [facility] Eligible 08/21/24 [facility] Coding Level of Care Code Est Pt Level 3 (06890) Est Pt Prev Care 40-64y(36033) Diagnoses Physical exam Z00.00 Lumbar degenerative disc disease M51.369 Bilateral knee pain M25.561; M25.562 Pulmonary emphysema, unspecified emphysema type J43.9 Emphysema type: unspecified Ascending aorta dilatation I77.810 Mild major depression F32.0 Additional Codes EN-7 Assessment Billing - EN-7 Assessment Tool: EN-7 Assessment 71706 ([id number]) PHQ-9 - 15573 - PHQ-9 Billing: Yes ([id number]) Time Spent (min) 32 Assessment & Plan Assessment & Plan (1) Physical exam: Code(s): Z00.00 - Encounter for general adult medical examination without abnormal findings Category: Medical (2) Lumbar degenerative disc disease: Code(s): M51.369 - Other intervertebral disc degeneration, lumbar region without mention of lumbar back pain or lower extremity pain Category: Medical (3) Bilateral knee pain: Code(s): M25.561 - Pain in right knee; M25.562 - Pain in left knee Category: Medical (4) Emphysema lung: Code(s): J43.9 - Emphysema, unspecified Category: Medical Qualifiers: Emphysema type: unspecified Qualified Code(s): J43.9 - Emphysema, unspecified (5) Ascending aorta dilatation: Code(s): I77.810 - Thoracic aortic ectasia Category: Medical (6) Mild major depression: Code(s): F32.0 - Major depressive disorder, single episode, mild Category: Medical Plan - Refer for physical therapy, particularly pool therapy, for rehabilitation and management of chronic back and knee pain. - Consider evaluation by orthopedics for reassessment of bilateral knee pain. - Address chest pain and shortness of breath with further cardiac and pulmonary evaluation if needed, based on symptom severity. - Update tetanus vaccination. - Reschedule colonoscopy for follow-up on tubular adenoma. - Review pain management regimen and consider adjustments for optimal control. - Ensure continued follow-up with psychiatry for management of anxiety and depression. Patient was informed and verbally consented to the use of an ambient scribe for clinic note documentation during this visit. I discussed the management of the patient's chronic back and knee pain, emphasizing the potential benefits of physical therapy, particularly aquatic therapy options, due to its low-impact nature. We addressed the need for updated tetanus vaccination and the importance of rescheduling the colonoscopy for ongoing cancer surveillance. The referral to orthopedics was considered necessary for further evaluation of the knee pain, particularly on the unoperated side. We discussed the current pain management regimen and the potential need for adjustment due to inadequacy in controlling symptoms. The possibility of follow-up with a specialist for chest pain and shortness of breath, if they persist or worsen, was also mentioned. Orders: Orders Uric Acid Today M1A.00X0 - Idiopathic chronic gout, unspecified site, without tophus (tophi) Td State Immunization Today Z23 - Encounter for immunization Lipid Panel Today E78.5 - Hyperlipidemia, unspecified Vitamin D 25-OH Total Today E55.9 - Vitamin D deficiency, unspecified Comprehensive [place]. Panel Fast Today I10 - Essential (primary) hypertension PT Evaluation and Treatment Today M51.369 - Other intervertebral disc degeneration, lumbar region without mention of lumbar back pain or lower extremity pain Referrals Orthopedics Referral M25.561 - Pain in right knee, M25.562 - Pain in left knee Medications: Changed From prazosin 2 mg PO BID To prazosin 2 mg PO BID 180 caps 1RF 90 days Refilled atorvastatin 40 mg PO BEDTIME 30 tabs 5RF aspirin (Aspirin Childrens) 81 mg PO DAILY 30 tabs 5RF chlorthalidone 25 mg PO DAILY 90 tabs 1RF 90 days I10 - Essential (primary) hypertension ibuprofen 800 mg PO Q8H 90 tabs 3RF 30 days M51.36 - Other intervertebral disc degeneration, lumbar region lisinopril 40 mg PO DAILY 90 tabs 2RF I10 - Essential (primary) hypertension amlodipine 10 mg PO DAILY 90 tabs 3RF fenofibrate 160 mg PO DAILY 90 tabs 1RF 90 days pantoprazole 40 mg PO DAILY 90 tabs 0RF 90 days K21.9 - Gastro-esophageal reflux disease without esophagitis Patient Instructions: - Schedule and attend physical therapy sessions, focusing on aquatic exercises as discussed. - Follow up with the maintenance specialist for knee evaluation. - Obtain the tetanus vaccine as it has been over 10 years since the last dose. - Reschedule and complete the planned colonoscopy. - Continue prescribed medications as directed and report any changes in symptom severity. - Notify the clinic regarding any increase in chest pain or shortness of breath. - Maintain follow-up appointments with the psychiatric care team for anxiety and depression.
== END 2024-08-21 09:36 | disposition home or self-care (01) ==
PROVIDERS: PCP Internal Medicine; Visit Provider Internal Medicine
DX: Z00.00 Encounter for general adult medical examination without abnormal findings (principal); M51.369 Other intervertebral disc degeneration, lumbar region without mention of lumbar back pain or lower extremity pain; J43.9 Emphysema, unspecified; I77.810 Thoracic aortic ectasia; F32.0 Major depressive disorder, single episode, mild; M25.561 Pain in right knee; M25.562 Pain in left knee; Z23 Encounter for immunization

== ENCOUNTER → 2024-08-21 08:07 | Outpatient (BNVA) | payer OTHER, SELFPAY | PROVIDERS: PCP Internal Medicine; Visit Provider Internal Medicine | DX: Z00.00 Encounter for general adult medical examination without abnormal findings (principal); M25.561 Pain in right knee; M25.562 Pain in left knee; M51.360 Other intervertebral disc degeneration, lumbar region with discogenic back pain only; J43.9 Emphysema, unspecified; I77.810 Thoracic aortic ectasia; F32.0 Major depressive disorder, single episode, mild; E78.5 Hyperlipidemia, unspecified; E55.9 Vitamin D deficiency, unspecified; M1A.00X0 Idiopathic chronic gout, unspecified site, without tophus (tophi); K21.9 Gastro-esophageal reflux disease without esophagitis; Z23 Encounter for immunization | CPT/HCPCS: 90471; 90714; 96127; 99212; 99396 ==

== ENCOUNTER 2024-09-01 10:08 | Outpatient (REF) | payer OTHER, SELFPAY ==
[2024-09-01 11:40] LABS: Alanine Aminotransferase 63 U/L (0-40); Albumin Level 4.3 g/dL (3.5-5.0); Alkaline Phosphatase 52 U/L (39-117); Anion Gap 14 (12-20); Aspartate Amino Transferase 39 U/L (5-37); Bilirubin Total 0.3 mg/dL (0.0-1.0); Blood Urea Nitrogen 20 mg/dL (9-16); Calcium 10.2 mg/dL (8.4-10.2); Carbon Dioxide 29 mmol/L (22-29); Chloride 102 mmol/L (96-108); Cholesterol 169 mg/dL (<200); Estimated Glomerular Filt Rate > 60; Glucose Fasting 146 mg/dL (60-99); HDL Cholesterol 35 mg/dL (>40); LDL Cholesterol Calculated 58 mg/dL (<100); Potassium 4.6 mmol/L (3.3-5.1); Sodium 140 mmol/L (135-145); Total Protein 7.5 g/dL (6.5-8.0); Triglycerides 380 mg/dL (<150); Uric Acid 11.2 mg/dL (3.4-7.0)
[2024-09-01 12:00] LABS: Vitamin D 25-OH Total 12.5 ng/mL (>30)
== END 2024-09-01 10:09 | disposition home or self-care (01) ==
LOC: HO.LAB 10:08
PROVIDERS: PCP Internal Medicine; Visit Provider Internal Medicine
DX: M1A.00X0 Idiopathic chronic gout, unspecified site, without tophus (tophi) (principal); I10 Essential (primary) hypertension; E55.9 Vitamin D deficiency, unspecified; E78.5 Hyperlipidemia, unspecified
CPT/HCPCS: 36415; 80053; 80061; 82306; 84550

== ENCOUNTER 2024-09-09 10:02 | Inpatient (IN) | payer OTHER, SELFPAY ==
--- NOTE | ~2024-09-09 | XR_ITS ---
CLINICAL HISTORY: dyspnea 1 view chest x-ray Comparison: CR/SR - XR CHEST 1V - 09/29/23 13:02 EST Findings: The lungs are clear. Normal size heart. No acute fracture. IMPRESSION: 1. No acute findings. This document has been electronically signed by: Abraham Lyn MD on 09/09/2024 11:33:43
--- NOTE | ~2024-09-09 | CT_ITS ---
CLINICAL HISTORY: dyspnea, pain CT angiography chest with contrast. 3D Postprocessing. Comparison: 01/26/2019 Findings: The heart size is normal. RV/LV ratio is normal. The ascending aorta measures 4.2 cm in diameter. The aorta is tortuous. There is no dissection. No pulmonary artery filling defects. The visualized thyroid and mediastinum are unremarkable. No consolidation or effusion. The upper abdomen is unremarkable. No acute fractures. IMPRESSION: 1. No pulmonary artery embolism. 2. Mild dilatation of the ascending aorta. This document has been electronically signed by: Carol Bhandari MD on 09/09/2024 14:19:34
--- NOTE | 2024-09-09 10:05 | ECG_ITS ---
Test Reason : cp Blood Pressure : */* mmHG Vent. Rate : 83 BPM Atrial Rate : 83 BPM P-R Int : 130 ms QRS Dur : 92 ms QT Int : 368 ms P-R-T Axes : 49 -7 116 degrees QTcB Int : 432 ms Normal sinus rhythm ST & T wave abnormality, consider lateral ischemia Abnormal ECG When compared with ECG of 29-Sep-2023 11:54, Left anterior fascicular block is no longer Present Minimal criteria for Inferior infarct are no longer Present Referred By: Generic ED Physician Electronically Signed By: BETY RAMOS MD
[2024-09-09 10:14] VITALS: BP 151/89; PULSE 85; RESP 26; TEMP 36.3; O2SAT 96; BMI 39.5
--- OUTSIDE RECORDS SUMMARY | 2024-09-09 10:34 | XMS_ITS | Clinical Summary ---
Author Organization [facility] Address [address] [place] [address] Care Team Providers Care Manager Progressive Care Name Role Phone Pcp, No Primary Care Provider Unavailabl e Allergies Active Allergy Reactions Criticality Noted Date Comments Bee Venom Anaphylaxis High 01/04/2024 Social History Tobacco Use Types Packs/Day Years Used Date Smoking Tobacco: Never Assessed Sex and Gender Information Value Date Recorded Sex Assigned at Male 01/04/2024 7:53 AM EDT Gender Identity Male 01/04/2024 7:53 AM EDT Sexual Orientation Heterosexual (straight) 01/03 7:53 AM EDT Last Filed Vital Signs Vital Sign Reading Time Taken Comments Blood Pressure 142/91 01/04/2024 8:30 AM EDT Pulse 82 01/04/2024 8:30 AM EDT Temperature - - Respiratory Rate - - Oxygen Saturation - - Inhaled Oxygen Concentration - - Weight - - Height - - Body Mass Index - - Plan of Treatment Health Maintenance Due Date Last Done Comments Hepatitis C Virus Screening 1969 Pneumococcal Vaccine: Pediat lisa (0-5 Years) and At-Risk Patients (6 to 49 Years) (1 of 2 - PCV) 1975 HIV Screening 1982 DTaP/Tdap/Td Vaccines (1 - Tdap) 1988 Hepatitis B Vaccines (1 of 3 - 19+ 3-dose series) 04/18 Pneumococcal Vaccines 50+ (1 of 2 - PCV) 1988 Colonoscopy 2014 Zoster (Shingles) Vaccine (1 of 2) 2019 Influenza Vaccine 03/16/2024 COVID-19 Vaccine (1 - 2023-25 season) 2024 Care Teams Manager Progressive Care Relationship Specialty Start Date End Date Pcp, No PCP - General General Medicine 12/06/23
--- OUTSIDE RECORDS SUMMARY | 2024-09-09 10:34 | XMS_ITS | Clinical Summary ---
Author Organization [facility] Address [address] [place] [address] Care Team Providers Care Computer Lab Assistant Name Role Phone Yulissa Keyes MD Primary Care Provider [phone] Social History Tobacco Use Types Packs/Day Years Used Date Smoking Tobacco: Never Assessed Sex and Gender Information Value Date Recorded Sex Assigned at Not on file Gender Identity Not on file Sexual Orientation Not on file Plan of Treatment Health Maintenance Due Date Last Done Comments DTaP,Tdap,and Td Vaccines (1 - Tdap) 1988 Hepatitis B Vaccines (1 of 3 - 19+ 3-dose series) 1988 Zoster Vaccines (1 of 2) 2019 COVID-19 Vaccine ( - 2023-2 5 season) 2024 Influenza Vaccine (#1) 2024 HIB Vaccines Aged Out No longer eligi ble based on patient's age to complete this topic HPV Vaccines Aged Out No longer eligi ble based on patient's age to complete this topic Hepatitis A Vaccines Aged Out No long er eligible based on patient's age to complete this topic IPV Vaccines Aged Out No longer eligi ble based on patient's age to complete this topic MMR Vaccines Aged Out No longer eligi ble based on patient's age to complete this topic Meningococcal ACWY Vaccine Aged Out N o longer eligible based on patient's age to complete this topic Pneumococcal Vaccine: Pediat rics (0 to 5 Years) and At-Risk Patients (6 to 64 Years) Aged Out No longer eligible b ased on patient's age to complete this topic RSV Immunization Patients Un kali 20 months Aged Out No longer eligible b ased on patient's age to complete this topic Varicella Vaccines Aged Out No longer eligible based on patient's age to complete this topic Care Teams Computer Lab Assistant Relationship Specialty Start Date End Date Yulissa Keyes MD [address] [place] [address] , [address] [facility] D[facility]A: [facility] OBEY Garcia PCP - General Internal Medicine 08/04/17
--- OUTSIDE RECORDS SUMMARY | 2024-09-09 10:34 | XMS_ITS | Encounter Summary ---
Author Organization [facility] Address [address] [place] [address] Care Team Providers Care Monotype Setter Name Role Phone Pcp, No Primary Care Provider Unavailabl e Encounter Details Date Type Department Care Team (Late st Contact Info) Description 10/15/2023 Scanned Document [facility] [address] [facility] [address] [place] [id number] Radiology, Scan Social History Tobacco Use Types Packs/Day Years Used Date Smoking Tobacco: Never Assessed Sex and Gender Information Value Date Recorded Sex Assigned at Male 01/04/2024 7:53 AM EDT Gender Identity Male 01/04/2024 7:53 AM EDT Sexual Orientation Heterosexual (straight) 01/03 7:53 AM EDT documented as of this encounter Plan of Treatment Not on file documented as of this encounter Procedures Procedure Name Priority Date/Time Associated Diagnosis Comments HX OUTSIDE ORDER 10/15/2023 documented in this encounter Results * HX OUTSIDE ORDER (10/15/2023) Scan Radiology HX AMB PROCEDURES documented in this encounter Visit Diagnoses Not on filedocumented in this encounter Care Teams Monotype Setter Relationship Specialty Start Date End Date Pcp, No PCP - General General Medicine 12/06/23 documented as of this encounter
--- NOTE | 2024-09-09 10:42 | ED.SOB ---
HPI - SOB/Dyspnea General Chief Complaint: Dyspnea Stated Complaint: CP, sob Time Seen by Provider: 09/09/24 10:27 Source: patient and old records reviewed Mode of arrival: ambulatory Limitations: no limitations History of Present Illness ED Provider: MARCIO CHAIREZ Narrative: 54 yo male with depression, emphysema, COPD who qualified for home O2 but it has not come in yet, dCHF, HTN, HLD, GERD, back pain, anemia here with c/o 1 week of cough, chills, chest tightness and wheezing. He is not responding to nebs. His finally got him to come to the ED. She denies sick contacts, travel or any other exposures. He has not seen a provider yet. He reports compliance with all medications. Pain worse with cough MD elicited complaint: shortness of breath and cough Pertinent past history: COPD, asthma and congestive heart failure Onset (ago): week(s) (1) Timing: progressively worsening Severity: severe Exacerbating factors: lying flat, exertion and coughing Relieving factors: rest and upright position Known history of: COPD, asthma and congestive heart failure Associated symptoms: cough, wheezing and lightheadedness Treatment prior to arrival: oxygen and bronchodilator Related Data Home Medications ?Medication ?Instructions ?Recorded ?Confirmed oxcarbazepine 600 mg tablet 600 mg PO BID 09/10/20 08/21/24 melatonin 5 mg capsule 5 mg PO BEDTIME PRN Insomnia 06/03/21 08/21/24 buspirone 10 mg tablet 10 mg PO TID 10/06/23 08/21/24 clonazepam 2 mg tablet 2 mg PO BID 10/06/23 08/21/24 hydroxyzine pamoate 25 mg capsule 25 mg PO BID PRN Anxiety 10/06/23 08/21/24 oxcarbazepine 300 mg tablet 300 mg PO BID 10/06/23 08/21/24 zolpidem 10 mg tablet 10 mg PO BEDTIME PRN Insomnia 10/06/23 08/21/24 aripiprazole 15 mg tablet 15 mg PO QAM 06/02/24 08/21/24 bupropion HCl 150 mg 24 hr tablet, 150 mg PO QAM 06/02/24 08/21/24 extended release Previous Rx's ?Medication ?Instructions ?Recorded naloxone 4 mg/actuation nasal 4 mg intranasal Q2M PRN opioid 01/11/22 spray (Narcan) overdose #2 ea Grab bar #1 ea 06/24/22 miscellaneous medical supply #1 ea 06/24/22 (Blood Pressure Cuff) blood pressure monitor (Blood #1 ea 08/06/22 Pressure Kit) cyanocobalamin (vitamin B-12) 1,000 mcg PO DAILY 90 days #90 tabs 08/06/22 1,000 mcg tablet,extended release nicotine 21 mg/24 hr daily 1 patch transdermal DAILY 28 days 08/06/22 transdermal patch #28 ea colchicine 0.6 mg tablet 0.6 mg PO DAILY 5 days #5 tabs 11/27/22 epinephrine 0.1 mg/0.1 mL 0.1 mg (0.1 mL) IM ONCE PRN 04/20/23 injection, auto-injector hypersensitivity reaction 30 days #3 ea Shower Chair #1 ea 06/29/23 hand rails #1 ea 06/29/23 folic acid 1 mg tablet 1 mg PO DAILY #30 tabs 06/30/23 indomethacin 50 mg capsule 50 mg PO BID 10 days #20 caps 09/29/23 umeclidinium 62.5 mcg-vilanterol 1 ea PO DAILY #60 caps 10/07/23 25 mcg/actuation powdr for inhalation (Anoro Ellipta) furosemide 40 mg tablet 40 mg PO QAM #30 tabs 11/30/23 metoprolol succinate 50 mg 50 mg PO DAILY 90 days #90 tabs 12/06/23 tablet,extended release 24 hr (Toprol XL) albuterol sulfate 2.5 mg/3 mL 2.5 mg (3 mL) inhalation TID #225 12/13/23 (0.083 %) solution for nebulization mL albuterol sulfate 90 mcg/actuation 2 puff inhalation Q4-6H PRN 12/13/23 aerosol inhaler (Ventolin HFA) shortness of breath or wheezing #8.5 grams carisoprodol 350 mg tablet 350 mg PO TID PRN Muscle Pain 30 04/18/24 days #90 tabs meclizine 25 mg tablet 25 mg PO BID PRN dizziness 5 days 04/18/24 #10 tabs bisacodyl 5 mg tablet,delayed 20 mg (4 x 5 mg) PO ONCE 1 day #4 06/02/24 release (Dulcolax (bisacodyl)) tabs polyethylene glycol 3350 17 238 g PO ONCE #238 grams 06/02/24 gram/dose oral powder (Miralax) amlodipine 10 mg tablet 10 mg PO DAILY #90 tabs 08/21/24 aspirin 81 mg chewable tablet 81 mg PO DAILY #30 tabs 08/21/24 (Aspirin Childrens) atorvastatin 40 mg tablet 40 mg PO BEDTIME #30 tabs 08/21/24 chlorthalidone 25 mg tablet 25 mg PO DAILY 90 days #90 tabs 08/21/24 fenofibrate 160 mg tablet 160 mg PO DAILY 90 days #90 tabs 08/21/24 ibuprofen 800 mg tablet 800 mg PO Q8H 30 days #90 tabs 08/21/24 lisinopril 40 mg tablet 40 mg PO DAILY #90 tabs 08/21/24 pantoprazole 40 mg tablet,delayed 40 mg PO DAILY 90 days #90 tabs 08/21/24 release prazosin 2 mg capsule 2 mg PO BID 90 days #180 caps 08/21/24 cholecalciferol (vitamin D3) 50 50 mcg PO DAILY #90 tabs 09/03/24 mcg (2,000 unit) tablet Allergies Allergy/AdvReac Type Severity Reaction Status Date / Time bee stings Allergy Severe Anaphylaxis Verified 09/09/24 10:19 hydromorphone [From DILAUDID] AdvReac Severe VIOLENTLY Verified 09/09/24 10:19 ILL NEEDS TO EAT FIRST Review of Systems Review of Systems: Constitutional : No Fever, pos Chills ENT/Mouth : No Hoarseness, No sore throat, No Rhinorrhea Eyes: No Redness, No Discharge, No Vision Changes Cardiovascular : posChest Pain, positive SOB, positive Dyspnea on Exertion, No Edema Respiratory : positive Cough, No Sputum, positive Wheezing, Gastrointestinal : No Nausea, No Vomiting, No Diarrhea, No abdominal Pain Genitourinary : No Dysuria, No Hematuria Musculoskeletal : No joint pain, No Myalgias Skin : No rash Neuro : No Weakness, No Numbness, No Headache Psych : No anxiety, depression Heme/Lymph: No Bruising, No Bleeding Endocrine : No Polyuria, No Polydipsia All other systems reviewed and are negative PMFSH Past Medical History Attestation statement: The following information was validated with the patient. Source: old records reviewed Medical History Emphysema lung Personal history of nicotine dependence Tubular adenoma of colon Cocaine abuse Lactic acid acidosis Hypoxemia Opioid overdose COVID-19 COPD (chronic obstructive pulmonary disease) History of pneumonia Positive colorectal cancer screening using Cologuard test Gout Essential hypertension Lymphopenia Mixed hyperlipidemia Pernicious anemia Lumbar degenerative disc disease GERD (gastroesophageal reflux disease) Surgical History History of colonoscopy History of esophagogastroduodenoscopy (EGD) History of surgery Status post surgical removal of malignant neoplasm of skin History of shoulder surgery History of arthroscopy of left knee History of total left knee replacement Family History Family History Father Lung cancer Mother Chronic mental illness Alzheimer disease Maternal Grandmother Bone cancer Hypertension Paternal Grandmother Brain cancer Maternal Uncle Cancer Family/Other Chronic mental illness Substance use disorder Social History Social History Household Members: None and Other Household Members Other:: 2 room mates Housing: House Do you presently have visiting nurse or other home services: No Alcohol intake: former Patient Tobacco Use Status: Former Tobacco user Tobacco use type: Cigarette Cigarettes Per Day: 10 Smoked in Last 30 Days: No e-Cigarette/Vaping Use: Never Used Second Hand Smoke Exposure: No Use of substances other than those prescribed or required for medical reasons: No Substance Use Type: Crack/Cocaine Advance Directives: No Advance Directives Information Provided: Yes Do you have a plan to hurt others: No Plan service: No Current occupational status: unemployed and disabled Cognitive needs: No Hearing needs: No Vision needs: Yes Physical Exam Vital Signs: Vital Signs: Last Vital Signs Temp 97.1 F 09/09/24 11:32 Pulse 83 09/09/24 11:32 Resp 28 H 09/09/24 11:32 BP 195/115 H 09/09/24 11:32 Pulse Ox 97 09/09/24 11:32 O2 Del Method Room Air 09/09/24 11:32 BMI result Body Mass Index 39.5 Appearance: Alert. Oriented X3. Mild acute distress. Eyes: Pupils equal, round and reactive to light. ENT: Pharynx normal. Neck: Normal inspection. Neck supple. CVS: Normal heart rate and rhythm. Pulses normal. Respiratory: Mild respiratory distress tachypnea and retractions. Breath sounds very diminished Abdomen: Soft and nontender. Skin: Skin warm and dry. Normal skin color. Normal skin turgor. Extremities: No lower extremity edema. No calf ttp Neuro: Oriented X 3. No motor deficit. No sensory deficit. CN2-12 intact Medications Administered Discontinued Medications Generic Name Dose Route Start Last Admin Trade Name Freq PRN Reason Stop Dose Admin Ceftriaxone Sodium 1 gm 09/09/24 10:28 09/09/24 11:02 Ceftriaxone Sodium 1 Gm Vial IVPUSH 09/09/24 10:29 1 gm ONCE ONE Administration Fentanyl 50 mcg 09/09/24 13:23 09/09/24 13:36 Fentanyl Citrate/Pf 100 Mcg/2 Ml Vial IVPUSH 09/09/24 13:24 50 mcg ONCE ONE Administration Protocol Magnesium Sulfate 2 gm in 50 mls @ 150 mls/hr 09/09/24 10:28 09/09/24 11:26 Magnesium Sulfate/H2o IV 09/09/24 10:47 Infused ONCE ONE Infusion Sodium Chloride 500 mls @ 500 mls/hr 09/09/24 11:28 09/09/24 12:45 Ns IV 09/09/24 12:27 Infused .Q1H ONE Infusion Methylprednisolone Sodium Succinate 60 mg 09/09/24 10:28 09/09/24 10:51 Methylprednisolone Sod Succ 125 Mg/2 Ml Vial IVPUSH 09/09/24 10:29 60 mg ONCE ONE Administration Medical Decision Making Medical Decision Making [facility] Narrative: 54 yo male with depression, emphysema, COPD who qualified for home O2 but it has not come in yet, dCHF, HTN, HLD, GERD, back pain, anemia here with c/o URI symptoms x 1 week, cough, not feeling well at this time EKG, CXR, cultures, lactic acid, empiric steroids/nebs/mag and viral panel. Suspect viral syndrome Differential Diagnosis Differential Diagnoses: The differential diagnosis associated with the presentation includes COPD, viral syndrome, bronchitis, pneumonia Admission/Observation Consideration of admission/observation: Escalation of care including admission/observation considered admit for COPD work up Consult Healthcare Provider Management of the patient was discussed with: Hospitalist (Dr. Peña to admit) Lab Data [facility] Lab Attestation statement: I reviewed the patient's lab results. 09/09/24 10:53 09/09/24 10:53 Labs: Lab Results 09/09/24 09/09/24 09/09/24 Range/Units 10:52 10:53 11:04 WBC 10.1 (4.8-10.8) X10*3/uL RBC 4.67 (4.60-5.80) X10*6/uL Hgb 14.0 (14.0-18.0) g/dl Hct 40.8 L (42.0-52.0) % MCV 87.4 (80.0-98.0) fL MCH 30.0 (27.0-33.0) pg MCHC 34.3 (31.0-36.0) g/dl RDW 12.7 (11.0-16.0) % Plt Count 286 D (160-400) X10*3/uL MPV 10.0 (9.4-12.4) fL Immature Gran % (Auto) 1.4 H (0.0-0.4) % Neut % (Auto) 72.1 (45-73) % Lymph % (Auto) 18.6 L (20-40) % [place] % (Auto) 3.9 (2-11) % Eos % (Auto) 3.4 (0-4) % Baso % (Auto) 0.6 (0-2) % Lymph # (Auto) 1.9 (1.2-4.9) X10*3/uL [place] # (Auto) 0.4 (0.1-1.2) X10*3/uL Eos # (Auto) 0.3 (0.0-0.4) X10*3/uL Baso # (Auto) 0.1 (0.0-0.2) X10*3/uL Abs Immat Gran (auto) 0.14 H (0.00-0.03) X10*3/uL Absolute Neuts (auto) 7.3 (2.0-8.3) x10*3/uL Absolute Nucleated RBC 0.000 (0.0-0.012) X10*3/uL Nucleated RBC % (auto) 0.0 (0.0-0.2) /100WBC VBG pH 7.37 (7.32-7.43) VBG pCO2 47 mmHg VBG pO2 56 mmHg VBG HCO3 27 H (22-26) mmol/L VBG O2 Saturation 86.0 % VBG Base Excess 1.6 mmol/L Sodium 140 (135-145) mmol/L Potassium 4.1 (3.3-5.1) mmol/L Chloride 107 (96-108) mmol/L Carbon Dioxide 24 (22-29) mmol/L Anion Gap 13 (12-20) BUN 17 H (9-16) mg/dL Creatinine 0.95 (0.5-1.4) mg/dL Estim Creat Clear Calc 127.1 Estimated GFR > 60 Random Glucose 188 H (60-115) mg/dL Lactic Acid 2.3 H* (0.5-2.0) mmol/L Lactic Acid F/U @ 2Hr (0.5-2.0) mmol/L Calcium 9.5 D (8.4-10.2) mg/dL Magnesium 1.9 (1.6-2.6) mg/dL Total Bilirubin 0.3 (0.0-1.0) mg/dL Direct Bilirubin 0.1 (0.0-0.5) mg/dL AST 21 (5-37) U/L ALT 36 (0-40) U/L Alkaline Phosphatase 50 (39-117) U/L Troponin I High Sens 3.4 D (<3.5-35.0) ng/L B-Natriuretic Peptide 70 (<100) pg/mL Total Protein 7.7 (6.5-8.0) g/dL Albumin 4.2 (3.5-5.0) g/dL Lipase 29 (8-78) U/L Urine Color Urine Appearance Urine pH (5.0-9.0) Ur Specific [place] (1.005-1.025) Urine Protein (Neg-Trace) mg/dL Urine Glucose (UA) (Negative) mg/dL Urine Ketones (Negative) mg/dL Urine Blood (Negative) Urine Nitrite (Negative) Ur Leukocyte Esterase (Negative) Influenza Type A (PCR) NEGATIVE (Negative) Influenza Type B (PCR) NEGATIVE (Negative) RSV RNA Qual (PCR) NEGATIVE (Negative) SARS-CoV-2 RNA (RT-PCR) NEGATIVE (Negative) 09/09/24 Range/Units 13:36 WBC (4.8-10.8) X10*3/uL RBC (4.60-5.80) X10*6/uL Hgb (14.0-18.0) g/dl Hct (42.0-52.0) % MCV (80.0-98.0) fL MCH (27.0-33.0) pg MCHC (31.0-36.0) g/dl RDW (11.0-16.0) % Plt Count (160-400) X10*3/uL MPV (9.4-12.4) fL Immature Gran % (Auto) (0.0-0.4) % Neut % (Auto) (45-73) % Lymph % (Auto) (20-40) % [place] % (Auto) (2-11) % Eos % (Auto) (0-4) % Baso % (Auto) (0-2) % Lymph # (Auto) (1.2-4.9) X10*3/uL [place] # (Auto) (0.1-1.2) X10*3/uL Eos # (Auto) (0.0-0.4) X10*3/uL Baso # (Auto) (0.0-0.2) X10*3/uL Abs Immat Gran (auto) (0.00-0.03) X10*3/uL Absolute Neuts (auto) (2.0-8.3) x10*3/uL Absolute Nucleated RBC (0.0-0.012) X10*3/uL Nucleated RBC % (auto) (0.0-0.2) /100WBC VBG pH (7.32-7.43) VBG pCO2 mmHg VBG pO2 mmHg VBG HCO3 (22-26) mmol/L VBG O2 Saturation % VBG Base Excess mmol/L Sodium (135-145) mmol/L Potassium (3.3-5.1) mmol/L Chloride (96-108) mmol/L Carbon Dioxide (22-29) mmol/L Anion Gap (12-20) BUN (9-16) mg/dL Creatinine (0.5-1.4) mg/dL Estim Creat Clear Calc Estimated GFR Random Glucose (60-115) mg/dL Lactic Acid (0.5-2.0) mmol/L Lactic Acid F/U @ 2Hr 1.8 (0.5-2.0) mmol/L Calcium (8.4-10.2) mg/dL Magnesium (1.6-2.6) mg/dL Total Bilirubin (0.0-1.0) mg/dL Direct Bilirubin (0.0-0.5) mg/dL AST (5-37) U/L ALT (0-40) U/L Alkaline Phosphatase (39-117) U/L Troponin I High Sens (<3.5-35.0) ng/L B-Natriuretic Peptide (<100) pg/mL Total Protein (6.5-8.0) g/dL Albumin (3.5-5.0) g/dL Lipase (8-78) U/L Urine Color Yellow Urine Appearance Clear Urine pH 5.0 (5.0-9.0) Ur Specific [place] 1.025 (1.005-1.025) Urine Protein Negative (Neg-Trace) mg/dL Urine Glucose (UA) Negative (Negative) mg/dL Urine Ketones Negative (Negative) mg/dL Urine Blood Negative (Negative) Urine Nitrite Negative (Negative) Ur Leukocyte Esterase Negative (Negative) Influenza Type A (PCR) (Negative) Influenza Type B (PCR) (Negative) RSV RNA Qual (PCR) (Negative) SARS-CoV-2 RNA (RT-PCR) (Negative) Independent Interpretation I performed an independent interpretation of an: EKG, Plain X-Ray and CT Scan (no VTE) Interpretation: Rate: 83 Rhythm: NSR [place]: left Normal P waves. Normal SHERI. Normal QRS complex. ST T wave : inverted t waves I and aVL, no BERNA qTC: 432 prior studies: no change from prior The study has been interpreted contemporaneously by me. . Radiology Impression Discussion of test interpretation with radiology: I have reviewed the radiologist's reading. Independent Historian Clinical information obtained from an independent historian. History obtained from or confirmed by: Spouse External Record Review External record reviewed: Outpatient record Critical Care Time Critical Care Time Critical Care Time: Yes Total Critical Care Time: 35 Attestation: repeat nebs, repeat assessments, admisison, review of records, IV magnesium - respiratory I attest to this time spent taking care of the patient Discharge Plan Discharge Clinical Impression: Acute exacerbation of chronic obstructive airways disease, Acidosis, lactic Patient Disposition: Admitted As Inpatient Prescriptions: No Action (DME) Blood Pressure Cuff Misc See Rx Instructions .Route Qty: 1 0RF Rx Instructions: As directed (DME) Grab bar Misc See Rx Instructions .Route Qty: 1 0RF Rx Instructions: As directed colchicine 0.6 mg tablet 0.6 mg PO DAILY 5 Days Qty: 5 0RF epinephrine 0.1 mg/0.1 mL auto-injector 0.1 mg IM ONCE PRN (Reason: hypersensitivity reaction) 30 Days Qty: 3 2RF (DME) Shower Chair Misc See Rx Instructions .Route Qty: 1 0RF Rx Instructions: [place] [place] rails See Rx Instructions .Route .MEDSUPPLY Qty: 1 0RF Rx Instructions: As directed folic acid 1 mg tablet 1 mg PO DAILY Qty: 30 11RF indomethacin 50 mg capsule 50 mg PO BID 10 Days Qty: 20 1RF Rx Instructions: administer with food or milk albuterol sulfate 2.5 mg /3 mL (0.083 %) solution for nebulization 2.5 mg inhalation TID Qty: 225 3RF albuterol sulfate [Ventolin HFA] 90 mcg/actuation HFA aerosol inhaler 2 puff inhalation Q4-6H PRN (Reason: shortness of breath or wheezing) Qty: 8.5 6RF meclizine 25 mg tablet 25 mg PO BID PRN (Reason: dizziness) 5 Days Qty: 10 0RF carisoprodol 350 mg tablet 350 mg PO TID PRN (Reason: Muscle Pain) 30 Days Qty: 90 0RF cholecalciferol (vitamin D3) 50 mcg (2,000 unit) tablet 50 mcg PO DAILY Qty: 90 0RF buspirone 10 mg tablet 10 mg PO TID hydroxyzine pamoate 25 mg capsule 25 mg PO BID PRN (Reason: Anxiety) oxcarbazepine 300 mg tablet 300 mg PO BID zolpidem 10 mg tablet 10 mg PO BEDTIME PRN (Reason: Insomnia) clonazepam 2 mg tablet 2 mg PO BID naloxone [Narcan] 4 mg/actuation spray,non-aerosol 4 mg intranasal Q2M PRN (Reason: opioid overdose) Qty: 2 0RF Rx Instructions: spray 1 dose into ONE nostril; alternate nostrils w each dose until help arrives cyanocobalamin (vitamin B-12) 1,000 mcg tablet extended release 1,000 mcg PO DAILY 90 Days Qty: 90 3RF nicotine 21 mg/24 hr patch 24 hour 1 patch transdermal DAILY 28 Days Qty: 28 0RF (DME) blood pressure monitor [Blood Pressure Kit] Kit See Rx Instructions .Route Qty: 1 0RF Rx Instructions: As directed oxcarbazepine 600 mg tablet 600 mg PO BID melatonin 5 mg capsule 5 mg PO BEDTIME PRN (Reason: Insomnia) Anoro Ellipta 62.5-25 mcg/actuation blister with device 1 ea PO DAILY Qty: 60 6RF metoprolol succinate [Toprol XL] 50 mg tablet extended release 24 hr 50 mg PO DAILY 90 Days Qty: 90 3RF furosemide 40 mg tablet 40 mg PO QAM Qty: 30 6RF aripiprazole 15 mg tablet 15 mg PO QAM bupropion HCl 150 mg tablet extended release 24 hr 150 mg PO QAM polyethylene glycol 3350 [Miralax] 17 gram/dose powder 238 g PO ONCE Qty: 238 0RF Rx Instructions: mix the full container with 64 ounces of gatorade for colonoscopy prep the evening before the test and drink bisacodyl [Dulcolax (bisacodyl)] 5 mg tablet,delayed release (DR/EC) 20 mg PO ONCE 1 Days Qty: 4 0RF Rx Instructions: take at 6 pm day before colonoscopy amlodipine 10 mg tablet 10 mg PO DAILY Qty: 90 3RF atorvastatin 40 mg tablet 40 mg PO BEDTIME Qty: 30 5RF aspirin [Aspirin Childrens] 81 mg tablet,chewable 81 mg PO DAILY Qty: 30 5RF chlorthalidone 25 mg tablet 25 mg PO DAILY 90 Days Qty: 90 1RF fenofibrate 160 mg tablet 160 mg PO DAILY 90 Days Qty: 90 1RF ibuprofen 800 mg tablet 800 mg PO Q8H 30 Days Qty: 90 3RF lisinopril 40 mg tablet 40 mg PO DAILY Qty: 90 2RF pantoprazole 40 mg tablet,delayed release (DR/EC) 40 mg PO DAILY 90 Days Qty: 90 0RF prazosin 2 mg capsule 2 mg PO BID 90 Days Qty: 180 1RF Print Language: Citizen [place]
[2024-09-09] MEDS: methylPREDNISolone Sod Succ 125 MG/2 ML VIAL 60 MG IVPUSH ×3 (10:51→21:28)
[2024-09-09] MEDS: Magnesium Sulfate/H2O 2 GM/50 ML PIGGYBACK IV (10:51)
[2024-09-09] MEDS: cefTRIAXone sodium 1 GM VIAL IVPUSH (11:02)
[2024-09-09 11:03] LABS: MANUAL DIFF FLAG NO
[2024-09-09 11:05] LABS: Basophils Absolute Auto 0.1 X10*3/uL (0.0-0.2); Basophils Percent Auto 0.6 % (0-2); Eosinophils Absolute Auto 0.3 X10*3/uL (0.0-0.4); Eosinophils Percent Auto 3.4 % (0-4); Hematocrit 40.8 % (42.0-52.0); Imm Gran Abs Auto 0.14 X10*3/uL (0.00-0.03); Imm Gran Pct Auto 1.4 % (0.0-0.4); Lymphocytes Absolute Auto 1.9 X10*3/uL (1.2-4.9); Lymphocytes Percent Auto 18.6 % (20-40); Mean Corpuscular HGB Conc 34.3 g/dl (31.0-36.0); Mean Corpuscular Volume 87.4 fL (80.0-98.0); Monocytes Absolute Auto 0.4 X10*3/uL (0.1-1.2); Monocytes Percent Auto 3.9 % (2-11); Neutrophils Absolute Auto 7.3 x10*3/uL (2.0-8.3); Neutrophils Percent Auto 72.1 % (45-73); Platelet Count 286 X10*3/uL (160-400); Red Blood Count 4.67 X10*6/uL (4.60-5.80); Red Cell Distribution Width 12.7 % (11.0-16.0); White Blood Count 10.1 X10*3/uL (4.8-10.8)
--- NOTE | 2024-09-09 11:05 | PC.NURSE ---
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
[2024-09-09 11:08] LABS: VBG Base Excess 1.6 mmol/L; VBG HCO3 27 mmol/L (22-26); VBG pCO2 47 mmHg; VBG pH 7.37 (7.32-7.43); VBG pO2 56 mmHg
[2024-09-09 11:09] LABS: Venous Blood Gas Refer to POC result
[2024-09-09 11:24] LABS: Alanine Aminotransferase 36 U/L (0-40); Albumin Level 4.2 g/dL (3.5-5.0); Alkaline Phosphatase 50 U/L (39-117); Anion Gap 13 (12-20); Aspartate Amino Transferase 21 U/L (5-37); Bilirubin Direct 0.1 mg/dL (0.0-0.5); Bilirubin Total 0.3 mg/dL (0.0-1.0); Blood Urea Nitrogen 17 mg/dL (9-16); Calcium 9.5 mg/dL (8.4-10.2); Carbon Dioxide 24 mmol/L (22-29); Chloride 107 mmol/L (96-108); Creatinine Clr Calc Pharmacy 127.1; Estimated Glomerular Filt Rate > 60; Glucose Random 188 mg/dL (60-115); Lipase 29 U/L (8-78); Magnesium 1.9 mg/dL (1.6-2.6); Potassium 4.1 mmol/L (3.3-5.1); Sodium 140 mmol/L (135-145); Total Protein 7.7 g/dL (6.5-8.0)
[2024-09-09 11:28] LABS: Lactic Acid 2.3 mmol/L (0.5-2.0)
[2024-09-09 11:32] VITALS: BP 195/115; PULSE 83; RESP 28; TEMP 36.2; O2SAT 97
[2024-09-09 11:32] LABS: Troponin-I High Sensitivity 3.4 ng/L (<3.5-35.0)
[2024-09-09] MEDS: 0.9 % Sodium Chloride 500 ML IV (11:38)
[2024-09-09 11:40] LABS: Influenza A PCR NEGATIVE (Negative); Influenza B PCR NEGATIVE (Negative); Resp Syncy Virus RNA Qual PCR NEGATIVE (Negative); SARS COV2 PCR INHOUSE NEGATIVE (Negative)
[2024-09-09 11:46] LABS: B Type Natriuretic Peptide 70 pg/mL (<100)
[2024-09-09 13:02] LABS: Reflex Lactate? Lactic Acid Added
[2024-09-09] MEDS: fentaNYL citrate/PF 100 MCG/2 ML VIAL 50 MCG IVPUSH (13:36)
[2024-09-09 13:43] LABS: Appearance Urine Clear; Color Urine Yellow; Glucose Urine UA Negative (Negative); Leukocyte Esterase Urine Negative (Negative); Nitrite Urine Negative (Negative); Specific Gravity - Urine 1.025 (1.005-1.025); Urine Blood Negative (Negative); Urine Ketones Negative (Negative); Urine Protein Negative (Neg-Trace)
[2024-09-09 13:55] LABS: ~Lactic Acid-LAB USE ONLY 1.8 mmol/L (0.5-2.0)
[2024-09-09 14:00] VITALS: BP 141/100; PULSE 82; RESP 18; O2SAT 97
--- NOTE | 2024-09-09 14:50 | PC.NURSE ---
Patient oob sitting in wheelchair next to bed. Reports improvement in anxiety/ pain. Reports breathing has improved after being medicated
[2024-09-09] MEDS: Azithromycin 500 MG in 0.9 % Sodium Chloride 250 ML 125 MG IV (15:06)
--- NOTE | 2024-09-09 15:17 | PM.IMHP ---
History of Present Illness Date of Service: 09/09/24 Chief Complaint: Shortness of breath 52 yo male with PMH of asthma who has inhalers he has been sick since Thanksgiving on and off with either viral syndrome or stomach bug. He has not recovered. His recovered well. No recent travel or procedures, no hotel stays. He reports wosening cough, chills and fever. He saw PCP 08/25 started on zpak for multifocal pneumonia. He is not getting better now so on 09/04 they started augmentin and prednisone burst. Now as of wednesday worsening breathing, chest tightness, fever of 101 this AM. He overall feels sick. Review of Systems Review of Systems: Denies chest pain except when coughing Admits to shortness of breath with minimal exertion Denies nausea vomiting diarrhea Denies fever chills PMFSH Medical History Emphysema lung Personal history of nicotine dependence Tubular adenoma of colon Cocaine abuse Lactic acid acidosis Hypoxemia Opioid overdose COVID-19 COPD (chronic obstructive pulmonary disease) History of pneumonia Positive colorectal cancer screening using Cologuard test Gout Essential hypertension Lymphopenia Mixed hyperlipidemia Pernicious anemia Lumbar degenerative disc disease GERD (gastroesophageal reflux disease) Family History Father Lung cancer Mother Chronic mental illness Alzheimer disease Maternal Grandmother Bone cancer Hypertension Paternal Grandmother Brain cancer Maternal Uncle Cancer Family/Other Chronic mental illness Substance use disorder Surgical History History of colonoscopy History of esophagogastroduodenoscopy (EGD) History of surgery Status post surgical removal of malignant neoplasm of skin History of shoulder surgery History of arthroscopy of left knee History of total left knee replacement Social History Household Members: None and Other Household Members Other:: 2 room mates Housing: House Do you presently have visiting nurse or other home services: No Alcohol intake: former Patient Tobacco Use Status: Former Tobacco user Tobacco use type: Cigarette Cigarettes Per Day: 10 Smoked in Last 30 Days: No e-Cigarette/Vaping Use: Never Used Second Hand Smoke Exposure: No Use of substances other than those prescribed or required for medical reasons: No Substance Use Type: Crack/Cocaine Advance Directives: No Advance Directives Information Provided: Yes Do you have a plan to hurt others: No Plan service: No Current occupational status: unemployed and disabled Cognitive needs: No Hearing needs: No Vision needs: Yes Meds Allergies Allergy/AdvReac Type Severity Reaction Status Date / Time bee stings Allergy Severe Anaphylaxis Verified 09/09/24 10:19 hydromorphone [From DILAUDID] AdvReac Severe VIOLENTLY Verified 09/09/24 10:19 ILL NEEDS TO EAT FIRST Active Medications: Current Medications Acetaminophen (Acetaminophen 325 Mg Tablet) 650 mg PO Q6H PRN PRN Reason: Pain, Mild 1-3,fever,headache Albuterol/Ipratropium (Albuterol/Iprat 2.5/0.5mg 3 Ml Ampul.Neb) 3 ml INHALE RQ4H WHILE AWAKE PRN PRN Reason: Wheezing Calcium Carbonate (Calcium Carbonate 750 Mg Tab.Chew) 750 mg PO Q4H PRN PRN Reason: Heartburn Enoxaparin Sodium (Enoxaparin Sodium 40 Mg/0.4 Ml Syringe) 40 mg SUBCUT Q24H GUTIERREZ Azithromycin 500 mg/ Sodium (Chloride) 250 mls @ 125 mls/hr IV ONCE ONE Stop: 09/09/24 16:34 Last Admin: 09/09/24 15:06 Dose: 125 mls/hr Magnesium Hydroxide (Milk Of Magnesia 30 Ml Oral.Susp) 30 ml PO DAILY PRN PRN Reason: Constipation Melatonin (Melatonin 3 Mg Tablet) 6 mg PO BEDTIME PRN PRN Reason: Insomnia Methylprednisolone Sodium Succinate (Methylprednisolone Sod Succ 125 Mg/2 Ml Vial) 60 mg IVPUSH Q6H GUTIERREZ Ondansetron HCl (Ondansetron Hcl 4 Mg/2 Ml Vial) 4 mg IVPUSH Q8H PRN PRN Reason: Nausea and Vomiting Oxycodone HCl (Oxycodone Hcl Immed Release 5 Mg Tablet) 5 mg PO Q6H PRN PRN Reason: Pain, Severe (Pain Scale 7-10) Sodium Chloride (0.9 % Sodium Chloride Flush 3 Ml Syringe) 3 ml IVFLUSH QSHIFT [facility] Home Medications ?Medication ?Instructions ?Recorded ?Confirmed ?Last Taken ?Type oxcarbazepine 600 mg tablet 600 mg PO BID 09/10/20 08/21/24 01/16/21 03:30 History melatonin 5 mg capsule 5 mg PO BEDTIME PRN Insomnia 06/03/21 08/21/24 Unknown History buspirone 10 mg tablet 10 mg PO TID 10/06/23 08/21/24 Unknown History clonazepam 2 mg tablet 2 mg PO BID 10/06/23 08/21/24 Unknown History hydroxyzine pamoate 25 mg capsule 25 mg PO BID PRN Anxiety 10/06/23 08/21/24 Unknown History oxcarbazepine 300 mg tablet 300 mg PO BID 10/06/23 08/21/24 Unknown History zolpidem 10 mg tablet 10 mg PO BEDTIME PRN Insomnia 10/06/23 08/21/24 Unknown History aripiprazole 15 mg tablet 15 mg PO QAM 06/02/24 08/21/24 Unknown History bupropion HCl 150 mg 24 hr tablet, 150 mg PO QAM 06/02/24 08/21/24 Unknown History extended release Physical Exam Vital Signs and Narrative: Vital Signs: Last Vital Signs Temp 97.1 F 09/09/24 11:32 Pulse 82 09/09/24 14:00 Resp 18 09/09/24 14:00 BP 141/100 H 09/09/24 14:00 Pulse Ox 97 09/09/24 14:00 O2 Del Method Nasal Cannula 09/09/24 14:00 O2 Flow Rate 2 09/09/24 14:00 BMI result Body Mass Index 39.5 Const: Other: Awake alert no acute distress Resp: Other: Diminished throughout with scattered expiratory wheezes at bases Cardio: Other: No S4; positive S1-S2; no S3 murmurs rubs or gallops GI: Other: Soft nontender nondistended normoactive bowel sounds Extrem: Other: No edema bilaterally Results Labs 09/09/24 10:53 09/09/24 10:53 Labs: Laboratory Results - last 24 hr 09/09/24 09/09/24 09/09/24 10:52 10:53 11:04 MCV 87.4 MCH 30.0 MCHC 34.3 RDW 12.7 Plt Count 286 D MPV 10.0 Immature Gran % (Auto) 1.4 H Neut % (Auto) 72.1 Lymph % (Auto) 18.6 L [place] % (Auto) 3.9 Eos % (Auto) 3.4 Baso % (Auto) 0.6 Lymph # (Auto) 1.9 [place] # (Auto) 0.4 Eos # (Auto) 0.3 Baso # (Auto) 0.1 Abs Immat Gran (auto) 0.14 H Absolute Neuts (auto) 7.3 Absolute Nucleated RBC 0.000 Nucleated RBC % (auto) 0.0 VBG pH 7.37 VBG pCO2 47 VBG pO2 56 VBG HCO3 27 H VBG O2 Saturation 86.0 VBG Base Excess 1.6 Anion Gap 13 Estim Creat Clear Calc 127.1 Estimated GFR > 60 Random Glucose 188 H Lactic Acid 2.3 H* Lactic Acid F/U @ 2Hr Calcium 9.5 D Magnesium 1.9 Total Bilirubin 0.3 Direct Bilirubin 0.1 AST 21 ALT 36 Alkaline Phosphatase 50 Troponin I High Sens 3.4 D B-Natriuretic Peptide 70 Total Protein 7.7 Albumin 4.2 Lipase 29 Urine Color Urine Appearance Urine pH Ur Specific [place] Urine Protein Urine Glucose (UA) Urine Ketones Urine Blood Urine Nitrite Ur Leukocyte Esterase Influenza Type A (PCR) NEGATIVE Influenza Type B (PCR) NEGATIVE RSV RNA Qual (PCR) NEGATIVE SARS-CoV-2 RNA (RT-PCR) NEGATIVE 09/09/24 13:36 MCV MCH MCHC RDW Plt Count MPV Immature Gran % (Auto) Neut % (Auto) Lymph % (Auto) [place] % (Auto) Eos % (Auto) Baso % (Auto) Lymph # (Auto) [place] # (Auto) Eos # (Auto) Baso # (Auto) Abs Immat Gran (auto) Absolute Neuts (auto) Absolute Nucleated RBC Nucleated RBC % (auto) VBG pH VBG pCO2 VBG pO2 VBG HCO3 VBG O2 Saturation VBG Base Excess Anion Gap Estim Creat Clear Calc Estimated GFR Random Glucose Lactic Acid Lactic Acid F/U @ 2Hr 1.8 Calcium Magnesium Total Bilirubin Direct Bilirubin AST ALT Alkaline Phosphatase Troponin I High Sens B-Natriuretic Peptide Total Protein Albumin Lipase Urine Color Yellow Urine Appearance Clear Urine pH 5.0 Ur Specific [place] 1.025 Urine Protein Negative Urine Glucose (UA) Negative Urine Ketones Negative Urine Blood Negative Urine Nitrite Negative Ur Leukocyte Esterase Negative Influenza Type A (PCR) Influenza Type B (PCR) RSV RNA Qual (PCR) SARS-CoV-2 RNA (RT-PCR) Assessment and Plan (1) Acute exacerbation of chronic obstructive airways disease: Status: Acute (2) Essential hypertension: Status: Acute Plan 54-year-old male with a history of depression COPD 0 qualifies for home O2, CHF, hypertension, and hyperlipidemia and anemia presents with 1 week of cough chills and chest tightness and wheezing. Emergency workup consistent with COPD exacerbation 1. Acute respiratory failure secondary to COPD exacerbation -ceftriaxone/azithromycin (1) -pulse dose methylprednisolone -DuoNebs q.4 hours while awake -titrate O2 to maintain sats greater than equal to 92% 2. Hypertension -poorly control on admission secondary to noncompliance with meds -restart outpatient therapies -adjust as indicated 3. PTSD -stable and well compensated -continue outpatient therapies Quality Stroke Does the patient have a stroke diagnosis?: No VTE Prior VTE?: No VTE Risk Level:: Medical - moderate - high VTE Device Contraindication: Treatment Not Indicated VTE Drug Contraindication: N/A - Med Ordered
[2024-09-09 16:20] VITALS: BP 179/96; PULSE 84; RESP 28; TEMP 36.4; O2SAT 97
--- NOTE | 2024-09-09 17:28 | PC.NURSE ---
Patient requesting home dose of soma 350mg, Dr. Peña aware stating okay to placed verbal order for soma 350mg
[2024-09-09] MEDS: carisoprodoL 350 MG TABLET PO ×2 (17:31→21:22)
[2024-09-09] MEDS: Enoxaparin Sodium 40 MG/0.4 ML SYRINGE SUBCUT (17:34)
[2024-09-09] MEDS: 0.9 % Sodium Chloride Flush 3 ML SYRINGE IVFLUSH (17:37)
--- NOTE | 2024-09-09 17:39 | PHA.MEDREC ---
Pharmacy Consult ? Medication Reconciliation Pharmacy has completed the medication reconciliation. Spoke to pt to confirm meds. No longer taking melatonin or nicotine patches.
[2024-09-09 19:17] VITALS: BP 144/83; PULSE 93; RESP 27; TEMP 36.6; O2SAT 95
[2024-09-09 19:31] VITALS: RESP 23; O2SAT 94
[2024-09-09] MEDS: clonazePAM 1 MG TABLET 2 MG PO (21:22)
[2024-09-09] MEDS: OXcarbazepine 300 MG TABLET 600 MG PO (21:23)
[2024-09-09] MEDS: OXcarbazepine 300 MG TABLET PO (22:18)
[2024-09-10] MEDS: guaiFEN/Codeine SF 200/20/10ML 10 ML LIQUID PO (05:29)
[2024-09-10] MEDS: Acetaminophen 325 MG TABLET 650 MG PO (05:37)
[2024-09-10] MEDS: methylPREDNISolone Sod Succ 125 MG/2 ML VIAL 60 MG IVPUSH ×4 (05:38→22:26)
[2024-09-10] MEDS: carisoprodoL 350 MG TABLET PO ×2 (05:38→16:48)
[2024-09-10 06:00] LABS: MANUAL DIFF FLAG NO
[2024-09-10 06:03] LABS: Basophils Absolute Auto 0.1 X10*3/uL (0.0-0.2); Basophils Percent Auto 0.3 % (0-2); Hematocrit 37.8 % (42.0-52.0); Hemoglobin 12.5 g/dl (14.0-18.0); Imm Gran Abs Auto 0.49 X10*3/uL (0.00-0.03); Lymphocytes Absolute Auto 1.2 X10*3/uL (1.2-4.9); Lymphocytes Percent Auto 7.1 % (20-40); Mean Corpuscular HGB Conc 33.1 g/dl (31.0-36.0); Mean Corpuscular Hemoglobin 29.6 pg (27.0-33.0); Mean Corpuscular Volume 89.4 fL (80.0-98.0); Mean Platelet Volume 10.4 fL (9.4-12.4); Monocytes Absolute Auto 0.2 X10*3/uL (0.1-1.2); Monocytes Percent Auto 1.3 % (2-11); Neutrophils Absolute Auto 14.6 x10*3/uL (2.0-8.3); Neutrophils Percent Auto 88.3 % (45-73); Platelet Count 287 X10*3/uL (160-400); Red Blood Count 4.23 X10*6/uL (4.60-5.80); Red Cell Distribution Width 12.9 % (11.0-16.0); White Blood Count 16.5 X10*3/uL (4.8-10.8)
[2024-09-10 06:28] LABS: Alanine Aminotransferase 26 U/L (0-40); Albumin Level 3.9 g/dL (3.5-5.0); Alkaline Phosphatase 40 U/L (39-117); Anion Gap 14 (12-20); Aspartate Amino Transferase 18 U/L (5-37); Bilirubin Total 0.2 mg/dL (0.0-1.0); Blood Urea Nitrogen 23 mg/dL (9-16); Carbon Dioxide 22 mmol/L (22-29); Chloride 105 mmol/L (96-108); Creatinine Clr Calc Pharmacy 104.1; Estimated Glomerular Filt Rate > 60; Glucose Random 253 mg/dL (60-115); Potassium 4.6 mmol/L (3.3-5.1); Sodium 136 mmol/L (135-145); Total Protein 7.1 g/dL (6.5-8.0)
[2024-09-10 07:01] VITALS: BP 163/99; PULSE 95; RESP 20; TEMP 36.4; O2SAT 96
[2024-09-10] MEDS: Omeprazole 20 MG CAPSULE.DR PO (07:04)
[2024-09-10] MEDS: Furosemide 40 MG TABLET PO (09:31)
[2024-09-10] MEDS: lisinopriL 40 MG TABLET PO (09:32)
[2024-09-10] MEDS: Cholecalciferol (Vitamin D3) 25 MCG TABLET 50 MCG PO (09:32)
[2024-09-10] MEDS: OXcarbazepine 300 MG TABLET 900 MG PO ×2 (09:32→19:55)
[2024-09-10] MEDS: Metoprolol Succinate ER 50 MG TAB.ER.24H PO (09:32)
[2024-09-10] MEDS: hydroCHLOROthiazide 25 MG TABLET PO (09:32)
[2024-09-10] MEDS: clonazePAM 1 MG TABLET 2 MG PO ×2 (09:32→19:55)
[2024-09-10] MEDS: busPIRone HCl 10 MG TABLET PO ×3 (09:32→19:55)
[2024-09-10] MEDS: buPROPion HCl XL 150 MG TAB.ER.24H PO (09:32)
[2024-09-10] MEDS: Cyanocobalamin (Vitamin B-12) 1,000 MCG TABLET 1000 MCG PO (09:32)
[2024-09-10] MEDS: amLODIPine Besylate 10 MG TABLET PO (09:33)
[2024-09-10] MEDS: Azithromycin 500 MG in 0.9 % Sodium Chloride 250 ML 125 MG IV (09:33)
[2024-09-10] MEDS: Folic Acid 1 MG TABLET PO (09:33)
[2024-09-10] MEDS: Aspirin 81 MG TAB.CHEW PO (09:33)
--- NOTE | 2024-09-10 09:55 | PC.NURSE ---
assumed care of patient at 0700, patient is awake, alert and oriented x4. patient ambulates with steady gait alone. resp even and unlabored, skin dry and intact. patient medicated per MAR, VSS
[2024-09-10] MEDS: ARIPiprazole 15 MG TABLET PO (10:46)
[2024-09-10] MEDS: Fenofibrate 160 MG TABLET PO (10:46)
[2024-09-10] MEDS: cefTRIAXone sodium 1 GM VIAL IVPUSH (12:30)
[2024-09-10 12:34] VITALS: BP 111/58; PULSE 78; RESP 20; TEMP 36.6; O2SAT 94
--- NOTE | 2024-09-10 14:25 | PC.NURSE ---
patient ate lunch, patient has visitor in room. resp even and unlabored. skin dry and intact.
--- NOTE | 2024-09-10 14:40 | P.PNIM_ITS ---
Subjective Subjective Date of Service: 09/10/24 Interval History: No acute issues overnight. Minimal improvement since admission Review of Systems Denies chest pain except when coughing Admits to shortness of breath with minimal exertion Denies nausea vomiting diarrhea Denies fever chills Physical Exam 2 Vital Signs: Vital Signs: Last Vital Signs Temp 97.8 F 09/10/24 12:34 Pulse 78 09/10/24 12:34 Resp 20 09/10/24 12:34 BP 111/58 L 09/10/24 12:34 Pulse Ox 94 09/10/24 12:34 O2 Del Method Room Air 09/10/24 12:34 O2 Flow Rate 2 09/09/24 19:17 BMI result Body Mass Index 39.5 Const: Other: Awake alert no acute distress Resp: Other: Diminished throughout with scattered expiratory wheezes at bases Cardio: Other: No S4; positive S1-S2; no S3 murmurs rubs or gallops GI: Other: Soft nontender nondistended normoactive bowel sounds Extrem: Other: No edema bilaterally Objective Data Active Medications Acetaminophen (Acetaminophen 325 Mg Tablet) 650 mg PO Q6H PRN PRN Reason: Pain, Mild 1-3,fever,headache Last Admin: 09/10/24 05:37 Dose: 650 mg Documented By: BJ Albuterol Sulfate (Albuterol Sulfate (0.083%) 2.5 Mg/3 Ml Vial.Neb) 2.5 mg INHALE Q3H PRN PRN Reason: Wheezing Amlodipine Besylate (Amlodipine Besylate 10 Mg Tablet) 10 mg PO DAILY [facility]; Protocol Last Admin: 09/10/24 09:33 Dose: 10 mg Documented By: AIDE Aripiprazole (Aripiprazole 15 Mg Tablet) 15 mg PO DAILY [facility] Last Admin: 09/10/24 10:46 Dose: 15 mg Documented By: AIDE Aspirin (Aspirin 81 Mg Tab.Chew) 81 mg PO DAILY [facility] Last Admin: 09/10/24 09:33 Dose: 81 mg Documented By: AIDE Atorvastatin Calcium (Atorvastatin Calcium 40 Mg Tablet) 40 mg PO BEDTIME [facility] Bupropion HCl (Bupropion Hcl Xl 150 Mg Tab.Er.24h) 150 mg PO DAILY [facility] Last Admin: 09/10/24 09:32 Dose: 150 mg Documented By: AIDE Buspirone HCl (Buspirone Hcl 10 Mg Tablet) 10 mg PO TID [facility] Last Admin: 09/10/24 09:32 Dose: 10 mg Documented By: AIDE Calcium Carbonate (Calcium Carbonate 750 Mg Tab.Chew) 750 mg PO Q4H PRN PRN Reason: Heartburn Carisoprodol (Carisoprodol 350 Mg Tablet) 350 mg PO TID PRN PRN Reason: Muscle Pain Last Admin: 09/10/24 05:38 Dose: 350 mg Documented By: BJ Ceftriaxone Sodium (Ceftriaxone Sodium 1 Gm Vial) 1 gm IVPUSH Q24H [facility] Last Admin: 09/10/24 12:30 Dose: 1 gm Documented By: AIDE Clonazepam (Clonazepam 1 Mg Tablet) 2 mg PO TID [facility] Last Admin: 09/10/24 09:32 Dose: 2 mg Documented By: AIDE Cyanocobalamin (Cyanocobalamin (Vitamin B-12) 1,000 Mcg Tablet) 1,000 mcg PO DAILY [facility] Last Admin: 09/10/24 09:32 Dose: 1,000 mcg Documented By: AIDE Enoxaparin Sodium (Enoxaparin Sodium 40 Mg/0.4 Ml Syringe) 40 mg SUBCUT Q24H [facility] Last Admin: 09/09/24 17:34 Dose: 40 mg Documented By: LAWRENCE Fenofibrate (Fenofibrate 160 Mg Tablet) 160 mg PO DAILY [facility] Last Admin: 09/10/24 10:46 Dose: 160 mg Documented By: AIDE Folic Acid (Folic Acid 1 Mg Tablet) 1 mg PO DAILY [facility] Last Admin: 09/10/24 09:33 Dose: 1 mg Documented By: AIDE Furosemide (Furosemide 40 Mg Tablet) 40 mg PO DAILY [facility]; Protocol Last Admin: 09/10/24 09:31 Dose: 40 mg Documented By: AIDE Guaifenesin/Codeine Phosphate (Guaifen/Codeine Sf 200/20/10ml 10 Ml Liquid) 10 ml PO Q4H PRN PRN Reason: Cough Last Admin: 09/10/24 05:29 Dose: 10 ml Documented By: BJ Hydrochlorothiazide (Hydrochlorothiazide 25 Mg Tablet) 25 mg PO DAILY [facility] Last Admin: 09/10/24 09:32 Dose: 25 mg Documented By: AIDE Azithromycin 500 mg/ Sodium (Chloride) 250 mls @ 125 mls/hr IV DAILY [facility] Last Infusion: 09/10/24 12:32 Dose: Infused Documented By: AIDE Lisinopril (Lisinopril 40 Mg Tablet) 40 mg PO DAILY [facility]; Protocol Last Admin: 09/10/24 09:32 Dose: 40 mg Documented By: AIDE Magnesium Hydroxide (Milk Of Magnesia 30 Ml Oral.Susp) 30 ml PO DAILY PRN PRN Reason: Constipation Melatonin (Melatonin 3 Mg Tablet) 6 mg PO BEDTIME PRN PRN Reason: Insomnia Methylprednisolone Sodium Succinate (Methylprednisolone Sod Succ 125 Mg/2 Ml Vial) 60 mg IVPUSH Q6H [facility] Last Admin: 09/10/24 12:31 Dose: 60 mg Documented By: AIDE Metoprolol Succinate (Metoprolol Succinate Er 50 Mg Tab.Er.24h) 50 mg PO DAILY [facility]; Protocol Last Admin: 09/10/24 09:32 Dose: 50 mg Documented By: AIDE Omeprazole (Omeprazole 20 Mg Capsule.Dr) 20 mg PO DAILY@0630 [facility] Last Admin: 09/10/24 07:04 Dose: 20 mg Documented By: AIDE Ondansetron HCl (Ondansetron Hcl 4 Mg/2 Ml Vial) 4 mg IVPUSH Q8H PRN PRN Reason: Nausea and Vomiting Oxcarbazepine (Oxcarbazepine 300 Mg Tablet) 900 mg PO BID [facility] Last Admin: 09/10/24 09:32 Dose: 900 mg Documented By: AIDE Oxycodone HCl (Oxycodone Hcl Immed Release 5 Mg Tablet) 5 mg PO Q6H PRN PRN Reason: Pain, Severe (Pain Scale 7-10) Sodium Chloride (0.9 % Sodium Chloride Flush 3 Ml Syringe) 3 ml IVFLUSH QSHIFT [facility] Last Admin: 09/10/24 08:06 Dose: Not Given Documented By: AIDE Non-Admin Reason: See Note Vitamin D (Cholecalciferol (Vitamin D3) 25 Mcg Tablet) 50 mcg PO DAILY [facility] Last Admin: 09/10/24 09:32 Dose: 50 mcg Documented By: AIDE Labs 09/10/24 05:14 09/10/24 05:14 Labs: Laboratory Results - last 24 hr 09/10/24 05:14 MCV 89.4 MCH 29.6 MCHC 33.1 RDW 12.9 Plt Count 287 MPV 10.4 Immature Gran % (Auto) 3.0 H Neut % (Auto) 88.3 H Lymph % (Auto) 7.1 L [place] % (Auto) 1.3 L Eos % (Auto) 0.0 Baso % (Auto) 0.3 Lymph # (Auto) 1.2 [place] # (Auto) 0.2 Eos # (Auto) 0.0 Baso # (Auto) 0.1 Abs Immat Gran (auto) 0.49 H Absolute Neuts (auto) 14.6 H Absolute Nucleated RBC 0.000 Nucleated RBC % (auto) 0.0 Anion Gap 14 Estim Creat Clear Calc 104.1 Estimated GFR > 60 Random Glucose 253 H Calcium 9.0 Total Bilirubin 0.2 AST 18 ALT 26 Alkaline Phosphatase 40 Total Protein 7.1 Albumin 3.9 Microbiology Microbiology Results: Microbiology 09/09/24 10:52 Blood Culture - Preliminary Blood - Venous No growth after 24 hours. 09/09/24 10:52 Blood Culture - Preliminary Blood - Venous No growth after 24 hours. Assessment and Plan (1) Acute exacerbation of chronic obstructive airways disease: Status: Acute Plan 54-year-old male with a history of depression COPD 0 qualifies for home O2, CHF, hypertension, and hyperlipidemia and anemia presents with 1 week of cough chills and chest tightness and wheezing. Emergency workup consistent with COPD exacerbation 1. Acute respiratory failure secondary to COPD exacerbation -ceftriaxone/azithromycin (2) -pulse dose methylprednisolone -DuoNebs q.4 hours while awake -titrate O2 to maintain sats greater than equal to 92% 2. Hypertension -acceptable control back on medicines -restart outpatient therapies -adjust as indicated 3. PTSD -stable and well compensated -continue outpatient therapies Full code Lovenox Requires ongoing hospitalization for IV antibiotics and steroids to treat COPD exacerbation Quality Stroke Does the patient have a stroke diagnosis?: No VTE Prior VTE?: No VTE Risk Level:: Medical - moderate - high VTE Device Contraindication: Treatment Not Indicated VTE Drug Contraindication: N/A - Med Ordered
[2024-09-10] MEDS: Enoxaparin Sodium 40 MG/0.4 ML SYRINGE SUBCUT (16:53)
[2024-09-10 16:54] VITALS: BP 105/63; PULSE 91; RESP 20; TEMP 36.6; O2SAT 94
--- NOTE | 2024-09-10 17:01 | PC.NURSE ---
patient is resting quietly in bed, moved into hospital bed for comfort. medicated per MAR, patient is alert and oriented x4. has visitor at bedside. patient is polite, but states he doesnt htink he can spend another night in the ED, states if 6pm comes and he doesnt have bed upstairs he wants to talk to attending doctor if he can go home. attending doctor notified of patients wishes. VSS at this time.
[2024-09-10 18:08] VITALS: BP 141/73; PULSE 75; RESP 18; TEMP 36.5; O2SAT 94
[2024-09-10 18:13] VITALS: BMI 40.6
--- NOTE | 2024-09-10 18:25 | PC.NURSE ---
Pt Arrived to unit from ED A&Ox4 and cooperative with care. Pt LS dim in bases 94% on room air. Pt states he had recent fall, was educated on fall risk interventions, is refusing bed alarm at this time. Please note pt states he has severe PTSD please do not wake patient when he is asleep he states he has had unintentional violent reactions in the past d/t PTSD. Pt states it is ok to call out his name, but do not touch him, or tap him awake.
[2024-09-10 19:49] VITALS: BP 129/55; PULSE 82; RESP 18; TEMP 36.6; O2SAT 94
[2024-09-10] MEDS: Atorvastatin Calcium 40 MG TABLET PO (19:55)
[2024-09-10] MEDS: 0.9 % Sodium Chloride Flush 3 ML SYRINGE IVFLUSH (22:27)
[2024-09-11 04:00] VITALS: BP 141/68; PULSE 89; RESP 22; TEMP 36.4; O2SAT 93
[2024-09-11] MEDS: guaiFEN/Codeine SF 200/20/10ML 10 ML LIQUID PO (04:40)
[2024-09-11] MEDS: methylPREDNISolone Sod Succ 125 MG/2 ML VIAL 60 MG IVPUSH ×2 (04:40→10:03)
[2024-09-11] MEDS: carisoprodoL 350 MG TABLET PO (04:40)
[2024-09-11] MEDS: Omeprazole 20 MG CAPSULE.DR PO (06:07)
[2024-09-11 07:31] VITALS: BP 132/74; PULSE 80; RESP 16; TEMP 36.8; O2SAT 93
[2024-09-11] MEDS: 0.9 % Sodium Chloride Flush 3 ML SYRINGE IVFLUSH (07:34)
[2024-09-11] MEDS: Calcium Carbonate 750 MG TAB.CHEW PO (08:41)
[2024-09-11 09:17] LABS: MANUAL DIFF FLAG NO
[2024-09-11 09:20] LABS: Basophils Percent Auto 0.2 % (0-2); Hemoglobin 12.4 g/dl (14.0-18.0); Imm Gran Abs Auto 0.87 X10*3/uL (0.00-0.03); Imm Gran Pct Auto 3.9 % (0.0-0.4); Lymphocytes Percent Auto 4.3 % (20-40); Mean Corpuscular HGB Conc 33.5 g/dl (31.0-36.0); Mean Corpuscular Hemoglobin 30.1 pg (27.0-33.0); Mean Corpuscular Volume 89.8 fL (80.0-98.0); Monocytes Absolute Auto 0.6 X10*3/uL (0.1-1.2); Monocytes Percent Auto 2.6 % (2-11); Neutrophils Absolute Auto 19.9 x10*3/uL (2.0-8.3); Platelet Count 304 X10*3/uL (160-400); Red Blood Count 4.12 X10*6/uL (4.60-5.80); Red Cell Distribution Width 12.8 % (11.0-16.0); White Blood Count 22.3 X10*3/uL (4.8-10.8)
--- NOTE | 2024-09-11 09:20 | PC.NURSE ---
patient reported acute gastric reflux pain. patient symptoms reported to MD. patient told by this RN we would get Tums and order another medication to calm acute GERD. while this RN was out of the room, patient called to have home prescription of pantoprazle brought to hospital. arrived with pills and patient took home medication despite RN request to not take home pills.
[2024-09-11 09:38] LABS: Alanine Aminotransferase 29 U/L (0-40); Albumin Level 4.2 g/dL (3.5-5.0); Alkaline Phosphatase 46 U/L (39-117); Anion Gap 12 (12-20); Aspartate Amino Transferase 16 U/L (5-37); Bilirubin Total 0.2 mg/dL (0.0-1.0); Blood Urea Nitrogen 29 mg/dL (9-16); Calcium 8.3 mg/dL (8.4-10.2); Carbon Dioxide 23 mmol/L (22-29); Chloride 105 mmol/L (96-108); Creatinine Clr Calc Pharmacy 87.5; Estimated Glomerular Filt Rate 53; Potassium 4.4 mmol/L (3.3-5.1); Sodium 136 mmol/L (135-145); Total Protein 7.4 g/dL (6.5-8.0)
[2024-09-11 09:43] LABS: Glucose Random 380 mg/dL (60-115)
--- NOTE | 2024-09-11 09:46 | MHC.CM.PN ---
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 [place]BUALTES W/ CANE, WALKER PRN FOR LONGER DISTANCES. HAS CPAP AND NEBULIZER BUT CANNOT RECALL SUPPLIER. TAB MACHINE OPERATOR ASSISTS W/ ADL'S. PCP AGUEDA CHEATHAM PATIENT REPORTS HCP ON FILE IS OUT DATED - REPORTS HE HAS AN UPDATED HCP LISTING SISTER ALONZO [facility]. DECLINES TO COMPLETE NEW COPY, COPY REQUESTED. DP: GOAL IS HOME W/ SISTER, WHO WILL TRANSPORT. CM WILL CONTINUE TO FOLLOW.
[2024-09-11] MEDS: Cyanocobalamin (Vitamin B-12) 1,000 MCG TABLET 1000 MCG PO (09:51)
[2024-09-11] MEDS: buPROPion HCl XL 150 MG TAB.ER.24H PO (09:51)
[2024-09-11] MEDS: lisinopriL 40 MG TABLET PO (09:52)
[2024-09-11] MEDS: hydroCHLOROthiazide 25 MG TABLET PO (09:52)
[2024-09-11] MEDS: Folic Acid 1 MG TABLET PO (09:52)
[2024-09-11] MEDS: busPIRone HCl 10 MG TABLET PO (09:53)
[2024-09-11] MEDS: clonazePAM 1 MG TABLET 2 MG PO (09:53)
[2024-09-11] MEDS: amLODIPine Besylate 10 MG TABLET PO (09:56)
[2024-09-11] MEDS: Cholecalciferol (Vitamin D3) 25 MCG TABLET 50 MCG PO (09:57)
[2024-09-11] MEDS: Fenofibrate 160 MG TABLET PO (09:57)
[2024-09-11] MEDS: OXcarbazepine 300 MG TABLET 900 MG PO (09:58)
[2024-09-11] MEDS: Metoprolol Succinate ER 50 MG TAB.ER.24H PO (09:59)
[2024-09-11] MEDS: Aspirin 81 MG TAB.CHEW PO (09:59)
[2024-09-11] MEDS: ARIPiprazole 15 MG TABLET PO (09:59)
[2024-09-11] MEDS: Furosemide 40 MG TABLET PO (10:00)
[2024-09-11] MEDS: Azithromycin 500 MG in 0.9 % Sodium Chloride 250 ML 125 MG IV (10:56)
[2024-09-11] MEDS: cefTRIAXone sodium 1 GM VIAL IVPUSH (10:57)
[2024-09-11] MEDS: Flu Vacc TS2024-25(6mos up)/PF 0.5 ML SYRINGE IM (11:06)
--- NOTE | 2024-09-11 12:54 | P.DS_ITS ---
DS: Providers Provider Date of Service: 09/11/24 Date of admission: 09/09/24 15:12 Date of discharge: 09/11/24 Primary care [facility] DS: Diagnosis Discharge Diagnosis (1) Acute exacerbation of chronic obstructive airways disease: Status: Acute DS: Summary Hospital Course Hospital Course: 52 yo male with PMH of asthma who has inhalers he has been sick since Thanksgiving on and off with either viral syndrome or stomach bug. He has not recovered. His recovered well. No recent travel or procedures, no hotel stays. He reports wosening cough, chills and fever. He saw PCP 08/25 started on zpak for multifocal pneumonia. He is not getting better now so on 09/04 they started augmentin and prednisone burst. Now as of wednesday worsening breathing, chest tightness, fever of 101 this AM. He overall feels sick. Hospital Course Admitted to general medical floor and started on ceftriaxone azithromycin along with pulse dose steroids. Over the next 48 hours patient improved to the point where he was requesting discharge. He is satting normally on room air and will be discharged home to complete a course of Ceftin/azithromycin along with prednisone taper. He will follow up with PCP next available Time Attestation Discharge Coordination Time (in mins): 35 Quality: Safe Use of Opioids Does Pt have an Active Cancer Diagnosis on the Problem List?: No Quality: Stroke Does the patient have a stroke diagnosis?: No Physical Exam Vital Signs: Vital Signs: Last Vital Signs Temp 98.3 F 09/11/24 07:31 Pulse 80 09/11/24 07:31 Resp 16 09/11/24 07:31 BP 132/74 09/11/24 07:31 Pulse Ox 93 09/11/24 07:31 O2 Del Method Room Air 09/11/24 07:31 O2 Flow Rate 2 09/09/24 19:17 BMI result Body Mass Index 40.6 Const: Other: Awake alert no acute distress Resp: Other: Diminished throughout with scattered expiratory wheezes at bases Cardio: Other: No S4; positive S1-S2; no S3 murmurs rubs or gallops GI: Other: Soft nontender nondistended normoactive bowel sounds Extrem: Other: No edema bilaterally DS: Data Data Completed and Pending Completed studies during hospitalization [Text1]: Procedures Insertion of Infusion Device into Upper Vein, Percutaneous Approach (08/25/21) Labs on day of discharge: Laboratory Results - last 24 hr 09/11/24 09:13 WBC 22.3 H RBC 4.12 L Hgb 12.4 L Hct 37.0 L MCV 89.8 MCH 30.1 MCHC 33.5 RDW 12.8 Plt Count 304 MPV 10.0 Immature Gran % (Auto) 3.9 H Neut % (Auto) 89.0 H Lymph % (Auto) 4.3 L Coal % (Auto) 2.6 Eos % (Auto) 0.0 Baso % (Auto) 0.2 Lymph # (Auto) 1.0 L Coal # (Auto) 0.6 Eos # (Auto) 0.0 Baso # (Auto) 0.0 Abs Immat Gran (auto) 0.87 H Absolute Neuts (auto) 19.9 H Absolute Nucleated RBC 0.000 Nucleated RBC % (auto) 0.0 Sodium 136 Potassium 4.4 Chloride 105 Carbon Dioxide 23 Anion Gap 12 BUN 29 H Creatinine 1.40 Estim Creat Clear Calc 87.5 Estimated GFR 53 Random Glucose 380 H* Calcium 8.3 L D Total Bilirubin 0.2 AST 16 ALT 29 Alkaline Phosphatase 46 Total Protein 7.4 Albumin 4.2 Preliminary micro results at discharge 09/09/24 10:52 Blood Culture - Preliminary Blood - Venous No growth after 24 hours. 09/09/24 10:52 Blood Culture - Preliminary Blood - Venous No growth after 24 hours. Discharge Plan Discharge Anticipated Discharge Date/Time: 09/11/24 12:48 Patient Disposition: Home, Self-Care Discharge Diagnosis: COPD exacerbation Referrals: Gabriella Mello, CERTIFIED PUBLIC ACCOUNTANT- [Primary Care Provider] - 1 Week Discharge Medications: New cefuroxime axetil 500 mg tablet 500 mg PO BID 7 Days Qty: 14 0RF azithromycin 500 mg tablet 500 mg PO DAILY 3 Days Qty: 3 0RF prednisone 10 mg tablet See Rx Instructions .Route .COMPLEX Qty: 45 0RF Rx Instructions: 10 mg orally; 5 tabs p.o. daily x3 days; 4 tabs p.o. daily x3 days; 3 tabs daily x3 days; 2 tabs daily x3 days; 1 tab daily x3 days Continued (DME) Blood Pressure Cuff Misc See Rx Instructions .Route Qty: 1 0RF Rx Instructions: As directed (DME) Grab bar Misc See Rx Instructions .Route Qty: 1 0RF Rx Instructions: As directed (DME) Shower Chair Misc See Rx Instructions .Route Qty: 1 0RF Rx Instructions: As directed (DME) hand rails See Rx Instructions .Route .MEDSUPPLY Qty: 1 0RF Rx Instructions: As directed folic acid 1 mg tablet 1 mg PO DAILY Qty: 30 11RF indomethacin 50 mg capsule 50 mg PO BID 10 Days Qty: 20 1RF Rx Instructions: administer with food or milk albuterol sulfate [Ventolin HFA] 90 mcg/actuation HFA aerosol inhaler 2 puff inhalation Q4-6H PRN (Reason: shortness of breath or wheezing) Qty: 8.5 6RF meclizine 25 mg tablet 25 mg PO BID PRN (Reason: dizziness) 5 Days Qty: 10 0RF carisoprodol 350 mg tablet 350 mg PO TID PRN (Reason: Muscle Pain) 30 Days Qty: 90 0RF cholecalciferol (vitamin D3) 50 mcg (2,000 unit) tablet 50 mcg PO DAILY Qty: 90 0RF buspirone 10 mg tablet 10 mg PO TID hydroxyzine pamoate 25 mg capsule 25 mg PO BID PRN (Reason: Anxiety) oxcarbazepine 300 mg tablet 300 mg PO BID zolpidem 10 mg tablet 10 mg PO BEDTIME PRN (Reason: Insomnia) clonazepam 2 mg tablet 2 mg PO TID pantoprazole 40 mg tablet,delayed release (DR/EC) 40 mg PO DAILY@0630 furosemide 40 mg tablet 40 mg PO DAILY albuterol sulfate 2.5 mg /3 mL (0.083 %) solution for nebulization 2.5 mg inhalation TID PRN (Reason: Shortness Of Breath Or Wheezing) colchicine 0.6 mg tablet 0.6 mg PO DAILY PRN (Reason: gout flare) cyanocobalamin (vitamin B-12) 1,000 mcg tablet extended release 1,000 mcg PO DAILY 90 Days Qty: 90 3RF (DME) blood pressure monitor [Blood Pressure Kit] Kit See Rx Instructions .Route Qty: 1 0RF Rx Instructions: As directed oxcarbazepine 600 mg tablet 600 mg PO BID Anoro Ellipta 62.5-25 mcg/actuation blister with device 1 ea PO DAILY Qty: 60 6RF metoprolol succinate [Toprol XL] 50 mg tablet extended release 24 hr 50 mg PO DAILY 90 Days Qty: 90 3RF aripiprazole 15 mg tablet 15 mg PO DAILY bupropion HCl 150 mg tablet extended release 24 hr 150 mg PO DAILY amlodipine 10 mg tablet 10 mg PO DAILY Qty: 90 3RF atorvastatin 40 mg tablet 40 mg PO BEDTIME Qty: 30 5RF aspirin [Aspirin Childrens] 81 mg tablet,chewable 81 mg PO DAILY Qty: 30 5RF chlorthalidone 25 mg tablet 25 mg PO DAILY 90 Days Qty: 90 1RF fenofibrate 160 mg tablet 160 mg PO DAILY 90 Days Qty: 90 1RF ibuprofen 800 mg tablet 800 mg PO Q8H 30 Days Qty: 90 3RF lisinopril 40 mg tablet 40 mg PO DAILY Qty: 90 2RF prazosin 2 mg capsule 2 mg PO BID 90 Days Qty: 180 1RF Discharge Orders: Discharge Order (Routine); Ordered 09/11/24 Ordered By: Milton Peña Diet: Advance to usual diet Activity on Discharge: As tolerated Stand Alone Forms: Patient Portal Discharge page Print Language: Swiss Care Plan Goals: Complete course of Ceftin 500 mg twice daily for 7 days along with azithromycin 500 mg daily for 3 days. Follow up prednisone taper as outlined Health Concerns: Resume all medicines as taken prior to hospitalization Plan of Treatment: Follow up with your PCP next available appointment Assessment: See discharge summary
--- NOTE | 2024-09-11 13:12 | MHC.CM.PN ---
Patient is discharged home today with his sisters support. She will also provide transportation home.
--- NOTE | 2024-09-11 13:35 | P.CDIM_ITS ---
PROVIDER RESPONSE TEXT: To clarify, the appropriate diagnosis supported by the clinical indicators: Clinically unable to determine (explain): copd exacerbation QUERY TEXT: PHYSICIAN'S DOCUMENTATION REQUEST Date of Query: 09/11/2024 09:22 AM EST Patient Name: Froilan Myers Admit Date: 09/09/2024 Dear Milton Peña DO, A review of the medical record indicates additional documentation may be needed. Please review below and update the documentation accordingly. Clinical Indicators: ED - 09/09/24 - dCHF Hypertension, reports compliance with medications, shortness of breath and cough. No pedal edema Progress notes: Patient past history: COPD, asthma and congestive heart failure. Furosemide 40 mg PO daily. BNP 70 History of Echo performed. Specifics to the noted CHF has been documented in the Ed only, if you agree, possible to place the sp ecifics of this diagnosis within the written Plan of your notes? Systolic Please specify if Acute, Chronic, or Acute on chronic, or Unable to determine Diastolic Please specify if Acute, Chronic, or Acute on chronic, or Unable to determine Combined Systolic/Diastolic Please specify if Acute, Chronic, or Acute on chronic, or Unable to determine Other (explain) Clinically unable to determine (explain) Thank you, Susan Higgins, CCS, CDIS Use of terms such as suspected, likely, concern for, or probable (associated with a specific diagnosi s that is being evaluated, monitored, or treated as if it exists) are acceptable and can be coded in the inpatient se tting, when documented at the time of discharge. Please use your independent medical judgment in providing your response. THIS QUERY IS PART OF THE PERMANENT MEDICAL RECORD
--- NOTE | 2024-09-11 15:03 | PC.NURSE ---
pt demanded his IV out prior to iv abx completing and then gathered his things and left the unit. He had been calm and cooperative until demanding the IV out then was belligerent the last 5 minutes prior to leaving. He refused to discuss or wait moments for his discharge instructions. He was resistant to guidance to the elevators. He would not talk to his sister who was on the Nurses station phone. RN caught up to him in the elevator to return home meds. 2 attempts made to call pt to let him know his antibiotics and prednisone taper were electronically submitted to pharmacy and calls went directly to voicemail. DC paperwork mailed to home. Dr. Peña, insulation cupola charger, and infantry unit leader aware.
== END 2024-09-11 14:18 | disposition home or self-care (01) | DRG 140 ==
LOC: HO.ED 14:37 → HO.EDOVER 15:20 → HO.S3 09-10 17:08
PROVIDERS: Admitting Provider Hospitalist; Emergency Provider Emergency Medicine; PCP Nurse Practitioner Family; Visit Provider Hospitalist
DX: J43.9 Emphysema, unspecified (principal); I11.0 Hypertensive heart disease with heart failure; I50.9 Heart failure, unspecified; F43.10 Post-traumatic stress disorder, unspecified; Z20.822 Contact with and (suspected) exposure to COVID-19; Z91.148 Patient's other noncompliance with medication regimen for other reason; Z23 Encounter for immunization; Z79.82 Long term (current) use of aspirin; Z79.899 Other long term (current) drug therapy
CPT/HCPCS: 0241U; 36415; 71045; 71275; 80048; 80053; 80076; 81003; 82803; 83605; 83690; 83735; 83880; 84484; 85025; 87040; 90656; 93005; 99285; J0456; J0696; J1650; J2919; J3010; J3475

== ENCOUNTER → 2024-09-09 10:05 | Outpatient (BNV) | payer OTHER, SELFPAY | PROVIDERS: Admitting Provider Hospitalist; Emergency Provider Emergency Medicine; PCP Nurse Practitioner Family; Visit Provider Internal Medicine Cardiovascular Disease | DX: R94.31 Abnormal electrocardiogram [ECG] [EKG] (principal); R07.9 Chest pain, unspecified | CPT/HCPCS: 93010 ==

== ENCOUNTER → 2024-09-09 10:28 | Outpatient (BNV) | payer OTHER, SELFPAY | PROVIDERS: Emergency Provider Emergency Medicine; PCP Nurse Practitioner Family; Visit Provider Nuclear Medicine | DX: I77.810 Thoracic aortic ectasia (principal); R06.00 Dyspnea, unspecified; Q25.46 Tortuous aortic arch | CPT/HCPCS: 71045; 71275 ==

== ENCOUNTER → 2024-09-09 15:12 | Outpatient (BNV) | payer OTHER, SELFPAY | PROVIDERS: Admitting Provider Hospitalist; Emergency Provider Emergency Medicine; PCP Nurse Practitioner Family; Visit Provider Hospitalist | DX: J44.1 Chronic obstructive pulmonary disease with (acute) exacerbation (principal) | CPT/HCPCS: 99233; 99239 ==

== ENCOUNTER 2024-09-13 10:35 | Outpatient (REF) | payer OTHER, SELFPAY ==
--- OUTSIDE RECORDS SUMMARY | 2024-09-14 14:11 | XMS_ITS | Clinical Summary ---
Author Organization [facility] Address [address] [place] [address] Care Team Providers Care Sports Nutritionist Name Role Phone Yulissa Keyes MD Primary Care Provider [phone] Social History Tobacco Use Types Packs/Day Years [...] age to complete this topic Care Teams Sports Nutritionist Relationship Specialty Start Date End Date Yulissa Keyes MD [address] [place] [address] , [address] [facility] Physician Associ D/B/A: [facility] OBEY Garcia PCP - General Internal Medicine 08/04/17
--- OUTSIDE RECORDS SUMMARY | 2024-09-14 14:11 | XMS_ITS | Clinical Summary ---
Author Organization [facility] Address [address] [place] [address] Care Team Providers Care Chief Lock Operator Name Role Phone Pcp, No Primary Care [...] (1 - 2023-25 season) 2024 Care Teams Chief Lock Operator Relationship Specialty Start Date End Date Pcp, No PCP - General General Medicine 12/06/23
--- OUTSIDE RECORDS SUMMARY | 2024-09-14 14:11 | XMS_ITS | Encounter Summary ---
Author Organization [facility] Address [address] [place] [address] Care Team Providers Care Urgent Care Technician Name Role Phone Pcp, No Primary Care Provider Unavailabl e Encounter Details Date Type Department Care Team (Late st Contact Info) Description 10/15/2023 Scanned Document [facility] [address] [facility] [address] [place] [id number] Radiology, Scan Social History Tobacco Use [...] on filedocumented in this encounter Care Teams Urgent Care Technician Relationship Specialty Start Date End Date Pcp, No PCP - General General Medicine 12/06/23 documented as of this encounter
== END 2024-09-13 10:36 | disposition home or self-care (01) ==
LOC: HO.HOSX 10:35
PROVIDERS: Visit Provider Physician Assistant
DX: Z13.89 Encounter for screening for other disorder (principal)

== ENCOUNTER 2024-09-21 09:11 | Outpatient (AMB) | payer OTHER, SELFPAY ==
--- NOTE | 2024-09-21 09:12 | MHC.OFFVIS ---
Vital Signs 09/21/24 09:13 Height 6 ft 1 in Weight 302 lb 14.642 oz BMI 40.0 BP 120/72 Blood Pressure Location Lt brachial Position Sitting Pulse 67 Pulse Source Pulse Oximeter Intake Visit Reasons: followup after cta Acid Cutter Required: No Accompanied by: Self / Same As Patient Allergies bee stings Allergy (Severe, Verified 09/21/24 09:44) Anaphylaxis hydromorphone [From DILAUDID] Adverse Reaction (Severe, Verified 09/21/24 09:44) VIOLENTLY ILL NEEDS TO EAT FIRST Medication List - Last Reconciled 09/21/24 by Fabian Brooks MD albuterol sulfate 2.5 mg inhalation TID PRN albuterol sulfate 90 mcg/actuation (Ventolin HFA) 2 puffs inhalation Q4-6H PRN amlodipine 10 mg PO DAILY aripiprazole 15 mg PO DAILY aspirin (Aspirin Childrens) 81 mg PO DAILY atorvastatin 40 mg PO BEDTIME blood pressure monitor (Blood Pressure Kit) As directed bupropion HCl XL 150 mg PO DAILY buspirone 10 mg PO TID carisoprodol 350 mg PO TID PRN 30 days chlorthalidone 25 mg PO DAILY 90 days cholecalciferol (vitamin D3) 50 mcg PO DAILY clonazepam 2 mg PO TID colchicine 0.6 mg PO DAILY PRN cyanocobalamin (vitamin B-12) ER 1,000 mcg PO DAILY 90 days fenofibrate 160 mg PO DAILY 90 days folic acid 1 mg PO DAILY furosemide 40 mg PO DAILY Grab bar As directed [hand rails As directed] hydroxyzine pamoate 25 mg PO BID PRN ibuprofen 800 mg PO Q8H 30 days indomethacin 50 mg PO BID 10 days lisinopril 40 mg PO DAILY meclizine 25 mg PO BID PRN 5 days metoprolol succinate ER (Toprol XL) 50 mg PO DAILY 90 days miscellaneous medical supply (Blood Pressure Cuff) As directed oxcarbazepine 600 mg PO BID oxcarbazepine 300 mg PO BID pantoprazole 40 mg PO DAILY@30 prazosin 2 mg PO BID 90 days Shower Chair As directed umeclidinium-vilanterol 62.5-25 mcg/actuation (Anoro Ellipta) 1 ea PO DAILY zolpidem 10 mg PO BEDTIME PRN HPI Comments Details: Froilan returns for follow-up. Around 2019, he was having some chest pains and that led to coronary CTA but that did not show any significant disease. Last year, he was again complaining of some atypical chest pains and shortness of breath with activity. This led to 1 further CTA. In that study, calcium score was 409. Moderate stenosis in the circumflex/right coronary artery. Within the last couple of weeks, it seems he had a COPD exacerbation was hospitalized for the same. History of cocaine use -last tox screen we have is from 2021 which was positive. He states using drugs these days. Also history of smoking but he states he has not smoked in a few months. Today, on exam, his heart rates sounds fast and upon doing an EKG, seems to be in atrial fibrillation with rapid rate. He was not aware of it. [facility] Medical History (Updated 09/21/24 @ 09:39 by Fabian Brooks MD) Atherosclerotic cardiovascular disease Emphysema lung Personal history of nicotine dependence Tubular adenoma of colon Cocaine abuse Lactic acid acidosis Hypoxemia Opioid overdose COVID-19 COPD (chronic obstructive pulmonary disease) History of pneumonia Positive colorectal cancer screening using Cologuard test Gout Essential hypertension Lymphopenia Mixed hyperlipidemia Pernicious anemia Lumbar degenerative disc disease GERD (gastroesophageal reflux disease) Surgical History History of colonoscopy History of esophagogastroduodenoscopy (EGD) History of surgery Status post surgical removal of malignant neoplasm of skin History of shoulder surgery History of arthroscopy of left knee History of total left knee replacement Family History Father Lung cancer Mother Chronic mental illness Alzheimer disease Maternal Grandmother Bone cancer Hypertension Paternal Grandmother Brain cancer Maternal Uncle Cancer Family/Other Chronic mental illness Substance use disorder Social History Household Members: Family and Other Household Members Other:: 2 room mates Housing: Apartment Alcohol intake: former Comment: refsued, wants to be indep Patient Tobacco Use Status: Former Tobacco user Tobacco use type: Cigarette Cigarettes Per Day: 10 e-Cigarette/Vaping Use: Never Used Second Hand Smoke Exposure: No Substance Use Type: Crack/Cocaine service: No Current occupational status: unemployed and disabled Cognitive needs: No Hearing needs: No Vision needs: Yes Review of Systems Const Denies chills, Denies fatigue, Denies fever(s), Denies weight gain and Denies weight loss ENT Denies dizziness Card Denies chest pain, Denies leg edema, Denies lightheadedness, Denies palpitations, Denies dyspnea on exertion, Denies orthopnea and Denies other Resp Denies cough and Denies dyspnea on exertion GI Denies hematochezia and Denies change in stool character Musc Denies abnormal gait, Denies muscle weakness, Denies numbness, Denies radiating pain into limb and Denies tingling Neuro Denies abnormal gait, Denies dizziness, Denies numbness and Denies tingling Endo Denies fatigue and Denies palpitations Physical Exam Vital Signs: Last Vital Signs Pulse 67 09/21/24 09:13 BP 120/72 09/21/24 09:13 BMI result Body Mass Index 40.0 Const General: comfortable and no acute distress Orientation/consciousness: patient oriented x3 HEENT Other: Unremarkable Head: Yes normal to inspection Neck Neck: Yes normal visual inspection Chest Chest palpation & inspection: normal inspection of the chest Resp Auscultation: clear to auscultation bilaterally Cardio Palpation: normal PMI Heart sounds: S1 normal heart sound present, S2 normal heart sound present, no gallops, no murmurs and no rubs GI Palpation (GI): Soft to palpation Back/Spine/Pelvis Other: unremarkable Skin General skin exam: no rashes or lesions noted Neuro General: patient oriented x3 Extrem General: Yes normal to inspection Psych Mental Status: mental status grossly normal Office Procedures EKG Details: EKG with atrial fibrillation at a rate of 170/Min. Lateral ST depression/T inversion. [id number], Complete Assessment & Plan Assessment & Plan (1) Atrial fibrillation with rapid ventricular response: Code(s): I48.91 - Unspecified atrial fibrillation Category: Medical Plan: By EKG, he is in atrial fibrillation rapid ventricular response. We will send him to EKG for management as he is going quite fast. Likely IV diltiazem or metoprolol and if necessary drip. If it does not get better, may need MICHI/cardioversion. Will need anticoagulation. (2) Atherosclerotic cardiovascular disease: Code(s): I25.10 - Atherosclerotic heart disease of [place] coronary artery without angina pectoris Category: Medical Plan: Coronary CTA at [facility]-total calcium score 409. LAD 146. Circumflex 228. Right coronary 35. In the CTA portion, calcific plaques in multiple vessels. Moderate stenosis in the right coronary [id number]%. Proximal circumflex with 25-49% stenosis. He has had several troponin levels done over the last few years and all of them were normal. Hence it seems he just has stable coronary disease. Aspirin/statins. (3) Diastolic dysfunction: Code(s): I51.89 - Other ill-defined heart diseases Category: Medical Plan: Moderate diastolic dysfunction on the echocardiogram. No overt heart failure. Likely all related to his risk factors/coronary disease. (4) Essential hypertension: Code(s): I10 - Essential (primary) hypertension Category: Medical Plan: Listed to be on amlodipine, lisinopril, metolazone, metoprolol. Seems stable. Depending on what medication we choose for the atrial fibrillation, will need adjustments. (5) Ascending aorta dilatation: Code(s): I77.810 - Thoracic aortic ectasia Category: Medical Plan: In the ascending aorta, measurement is 4.2 cm. In the CTA, described to have tortuous of the aorta, but no measurements given. Plan Patient was taken to the emergency room. Report given to . Coding Level of Care Code Est Pt Level 5 (67690) Diagnoses Atrial fibrillation with rapid ventricular response I48.91 Atherosclerotic cardiovascular disease I25.10 Diastolic dysfunction I51.89 Essential hypertension I10 Ascending aorta dilatation I77.810 CPT Codes EKG - CPT: 62200-[id number], Complete ([id number])
[2024-09-21 09:13] VITALS: BP 120/72; PULSE 67; BMI 40.0
--- OUTSIDE RECORDS SUMMARY | 2024-09-21 09:15 | XMS_ITS | Clinical Summary ---
Author Organization [facility] Address [address] [place] [address] Care Team Providers Care White Lead Grinder Name Role Phone Yulissa Keyes MD Primary Care Provider [phone] Social History Tobacco Use Types Packs/Day Years [...] age to complete this topic Care Teams White Lead Grinder Relationship Specialty Start Date End Date Yulissa Keyes MD [address] [place] [address] , [address] [facility] Physician Associ D/B/A: [facility] OBEY Garcia PCP - General Internal Medicine 08/04/17
--- OUTSIDE RECORDS SUMMARY | 2024-09-21 09:15 | XMS_ITS | Encounter Summary ---
Author Organization [facility] Address [address] [place] [address] Care Team Providers Care Steamer Tender Name Role Phone Pcp, No Primary Care Provider Unavailabl e Encounter Details Date Type Department Care Team (Late st Contact Info) Description 10/15/2023 Scanned Document [facility] 80 [facility] [address] [place] [phone] Radiology, Scan Social History Tobacco Use [...] on filedocumented in this encounter Care Teams Steamer Tender Relationship Specialty Start Date End Date Pcp, No PCP - General General Medicine 12/06/23 documented as of this encounter
--- OUTSIDE RECORDS SUMMARY | 2024-09-21 09:15 | XMS_ITS | Clinical Summary ---
Author Organization [facility] Address [address] [place] [address] Care Team Providers Care Cobol Engineer Name Role Phone Pcp, No Primary Care [...] (1 - 2023-25 season) 2024 Care Teams Cobol Engineer Relationship Specialty Start Date End Date Pcp, No PCP - General General Medicine 12/06/23
== END 2024-09-21 09:34 | disposition home or self-care (01) ==
PROVIDERS: PCP Internal Medicine; Visit Provider Internal Medicine
DX: I48.91 Unspecified atrial fibrillation (principal); I25.10 Atherosclerotic heart disease of native coronary artery without angina pectoris; I51.89 Other ill-defined heart diseases; I10 Essential (primary) hypertension; I77.810 Thoracic aortic ectasia
CPT/HCPCS: 93010; 99214

== ENCOUNTER → 2024-09-21 09:11 | Outpatient (BNVA) | payer OTHER, SELFPAY | PROVIDERS: PCP Internal Medicine; Visit Provider Internal Medicine | DX: I48.91 Unspecified atrial fibrillation (principal); I25.10 Atherosclerotic heart disease of native coronary artery without angina pectoris; I51.89 Other ill-defined heart diseases; I10 Essential (primary) hypertension; I77.810 Thoracic aortic ectasia; J44.9 Chronic obstructive pulmonary disease, unspecified; Z87.891 Personal history of nicotine dependence | CPT/HCPCS: 93005; 99212; J2003; J2250; J2704 ==

== ENCOUNTER 2024-09-21 09:36 | Inpatient (IN) | payer OTHER, SELFPAY ==
[2024-09-21] VITALS (9 sets, daily range): BP systolic 100–150; BP diastolic 62–129; PULSE 115–165; RESP 16–20; TEMP 36–36.9; O2SAT 95–97; BMI 39.6; BMI 41.0
--- NOTE | ~2024-09-21 | XR_ITS ---
EXAMINATION: XR CHEST CLINICAL INFORMATION: dizziness, sob COMPARISON: 09/09/2024 chest x-ray and CTPA. TECHNIQUE: Frontal view of the chest was obtained. FINDINGS: Mildly elevated right hemidiaphragm, unchanged. Cardiac, hilar, and mediastinal contours are normal. The lungs are clear bilaterally. There are no effusions or pneumothorax. There is no focal osseous or soft tissue abnormality. XR/XR chest 1V IMPRESSION: No active disease. No change. Electronically signed by: Ilia Wilson MD 09/21/2024 10:56 AM [facility]
--- NOTE | 2024-09-21 09:53 | ECG_ITS ---
Test Reason : dizziness Blood Pressure : */* mmHG Vent. Rate : 168 BPM Atrial Rate : * BPM P-R Int : * ms QRS Dur : 88 ms QT Int : 280 ms P-R-T Axes : * -26 156 degrees QTcB Int : 468 ms Atrial fibrillation with rapid ventricular response ST & T wave abnormality, consider lateral ischemia Abnormal ECG When compared with ECG of 09-Sep-2024 10:07, Atrial fibrillation has replaced Sinus rhythm Vent. rate has increased by [address] now depressed in Lateral leads Referred By: Aury Arteaga Electronically Signed By: Demian Hsu
--- NOTE | 2024-09-21 09:56 | ED.ARRPALP ---
HPI - Arrhythmia/Palpitations General Chief Complaint: Dizziness Stated Complaint: abnormal ekg Time Seen by Provider: 09/21/24 09:53 Source: patient Mode of arrival: other (wheelchair from Cardiology office) Limitations: no limitations History of Present Illness ED Provider: Alma Arteaga PA-C HPI narrative: 54 yo male with history of COPD, former smoker, depression, HFpEF, HTN, HLD, GERD, pernicious anemia, stable CAD, morbid obesity, former ETOH use (weeks ago), former cocaine use, PTSD, who had recent admission to [facility] for COPD exacerbation presents to the ER from Dr. Brooks's office for evaluation of new onset rapid atrial fibrillation w/ HR 170s. He was there for routine follow up. He reports no symptoms today and he is feeling great. He reports yesterday he had about 4 hours of severe dizziness associated with pain in his right anticubital fossa area that self-resolved. He was laying down at the time. He had no chest pain or SOB. No weakness, numbness, or tingling. He states he has not been drinking, smoking or using drugs. No history of Afib in the past and he is not on anticoagulation. MD complaint: irregular heart beat and atrial fibrillation Onset (ago): day(s) (1) Duration: now resolved Context: occurred during rest Associated symptoms: denies other symptoms Related Data Home Medications ?Medication ?Instructions ?Recorded ?Confirmed oxcarbazepine 600 mg tablet 600 mg PO BID 09/10/20 09/21/24 buspirone 10 mg tablet 10 mg PO TID 10/06/23 09/21/24 clonazepam 2 mg tablet 2 mg PO TID 10/06/23 09/21/24 hydroxyzine pamoate 25 mg capsule 25 mg PO BID PRN Anxiety 10/06/23 09/21/24 oxcarbazepine 300 mg tablet 300 mg PO BID 10/06/23 09/21/24 zolpidem 10 mg tablet 10 mg PO BEDTIME PRN Insomnia 10/06/23 09/21/24 aripiprazole 15 mg tablet 15 mg PO DAILY 06/02/24 09/21/24 bupropion HCl 150 mg 24 hr tablet, 150 mg PO DAILY 06/02/24 09/21/24 extended release albuterol sulfate 2.5 mg/3 mL 2.5 mg inhalation TID PRN 09/09/24 09/21/24 (0.083 %) solution for nebulization Shortness Of Breath Or Wheezing colchicine 0.6 mg tablet 0.6 mg PO DAILY PRN gout flare 09/09/24 09/21/24 furosemide 40 mg tablet 40 mg PO DAILY 09/09/24 09/21/24 pantoprazole 40 mg tablet,delayed 40 mg PO DAILY@0630 09/09/24 09/21/24 release Previous Rx's ?Medication ?Instructions ?Recorded Grab bar #1 ea 06/24/22 miscellaneous medical supply #1 ea 06/24/22 (Blood Pressure Cuff) blood pressure monitor (Blood #1 ea 08/06/22 Pressure Kit) cyanocobalamin (vitamin B-12) 1,000 mcg PO DAILY 90 days #90 tabs 08/06/22 1,000 mcg tablet,extended release Shower Chair #1 ea 06/29/23 hand rails #1 ea 06/29/23 folic acid 1 mg tablet 1 mg PO DAILY #30 tabs 06/30/23 indomethacin 50 mg capsule 50 mg PO BID 10 days #20 caps 09/29/23 umeclidinium 62.5 mcg-vilanterol 1 ea PO DAILY #60 caps 10/07/23 25 mcg/actuation powdr for inhalation (Anoro Ellipta) metoprolol succinate 50 mg 50 mg PO DAILY 90 days #90 tabs 12/06/23 tablet,extended release 24 hr (Toprol XL) albuterol sulfate 90 mcg/actuation 2 puff inhalation Q4-6H PRN 12/13/23 aerosol inhaler (Ventolin HFA) shortness of breath or wheezing #8.5 grams carisoprodol 350 mg tablet 350 mg PO TID PRN Muscle Pain 30 04/18/24 days #90 tabs meclizine 25 mg tablet 25 mg PO BID PRN dizziness 5 days 04/18/24 #10 tabs amlodipine 10 mg tablet 10 mg PO DAILY #90 tabs 08/21/24 aspirin 81 mg chewable tablet 81 mg PO DAILY #30 tabs 08/21/24 (Aspirin Childrens) atorvastatin 40 mg tablet 40 mg PO BEDTIME #30 tabs 08/21/24 chlorthalidone 25 mg tablet 25 mg PO DAILY 90 days #90 tabs 01/06/25 fenofibrate 160 mg tablet 160 mg PO DAILY 90 days #90 tabs 08/21/24 ibuprofen 800 mg tablet 800 mg PO Q8H 30 days #90 tabs 08/21/24 lisinopril 40 mg tablet 40 mg PO DAILY #90 tabs 08/21/24 prazosin 2 mg capsule 2 mg PO BID 90 days #180 caps 08/21/24 cholecalciferol (vitamin D3) 50 50 mcg PO DAILY #90 tabs 09/03/24 mcg (2,000 unit) tablet Allergies Allergy/AdvReac Type Severity Reaction Status Date / Time bee stings Allergy Severe Anaphylaxis Verified 09/21/24 09:44 hydromorphone [From DILAUDID] AdvReac Severe VIOLENTLY Verified 09/21/24 09:44 ILL NEEDS TO EAT FIRST Review of Systems Review of Systems: Yes all other systems are reviewed and are negative [facility] Past Medical History Medical History (Updated 09/21/24 @ 11:41 by ROBIN Wood) Atherosclerotic cardiovascular disease Emphysema lung Personal history of nicotine dependence Tubular adenoma of colon Cocaine abuse Lactic acid acidosis Hypoxemia Opioid overdose COVID-19 COPD (chronic obstructive pulmonary disease) History of pneumonia Positive colorectal cancer screening using Cologuard test Gout Essential hypertension Lymphopenia Mixed hyperlipidemia Pernicious anemia Lumbar degenerative disc disease GERD (gastroesophageal reflux disease) Surgical History History of colonoscopy History of esophagogastroduodenoscopy (EGD) History of surgery Status post surgical removal of malignant neoplasm of skin History of shoulder surgery History of arthroscopy of left knee History of total left knee replacement Family History Family History Father Lung cancer Mother Chronic mental illness Alzheimer disease Maternal Grandmother Bone cancer Hypertension Paternal Grandmother Brain cancer Maternal Uncle Cancer Family/Other Chronic mental illness Substance use disorder Social History Social History Household Members: Family and Other Household Members Other:: 2 room mates Housing: Apartment Alcohol intake: former Comment: refsued, wants to be indep Patient Tobacco Use Status: Former Tobacco user Tobacco use type: Cigarette Cigarettes Per Day: 10 e-Cigarette/Vaping Use: Never Used Second Hand Smoke Exposure: No Substance Use Type: Crack/Cocaine Advance Directives: No Advance Directives Information Provided: Yes Do you have a plan to hurt others: No Plan service: No Current occupational status: unemployed and disabled Cognitive needs: No Hearing needs: No Vision needs: Yes Physical Exam Vital Signs: Vital Signs: Last Vital Signs Temp 98.5 F 09/21/24 09:40 Pulse 130 H 09/21/24 13:20 Resp 16 09/21/24 13:20 BP 112/83 09/21/24 13:20 Pulse Ox 95 09/21/24 13:20 O2 Del Method Room Air 09/21/24 13:20 BMI result Body Mass Index 39.6 Appearance: Alert. Oriented X3. No acute distress. Head: normocephalic, atraumatic. Eyes: Pupils equal, round and reactive to light. ENT: Pharynx normal. No tonsillar swelling or exudate. Neck: Normal inspection. Neck supple. CVS: rapid rate, irregularly irregular, Pulses normal. Respiratory: No respiratory distress. Breath sounds normal. Abdomen: Obese, Soft and nontender. +BS x4 Skin: Skin warm and dry. Normal skin color. Normal skin turgor. No rashes. Extremities: No lower extremity edema. No joint swelling. Neuro/psych: Oriented X 3. No motor deficit. No sensory deficit. CN II-XII intact. Normal speech and cognition. Medications Administered Generic Name Dose Route Start Last Admin Trade Name Freq PRN Reason Stop Dose Admin Diltiazem HCl 125 mg/ Sodium 125 mls @ 0 mls/hr 09/21/24 10:45 09/21/24 11:26 Chloride IVCONT 15 mg/hr .Q0M GUTIERREZ 15 mls/hr Titration Protocol Per Protocol Discontinued Medications Generic Name Dose Route Start Last Admin Trade Name Freq PRN Reason Stop Dose Admin Apixaban 5 mg 09/21/24 11:48 09/21/24 13:14 Apixaban 5 Mg Tablet PO 09/21/24 11:49 5 mg ONCE ONE Administration Clonazepam 2 mg 09/21/24 11:03 09/21/24 11:06 Clonazepam 1 Mg Tablet PO 09/21/24 11:04 2 mg ONCE ONE Administration Digoxin 0.25 mg 09/21/24 11:48 09/21/24 13:13 Digoxin 0.5 Mg/2 Ml Ampul IVPUSH 09/21/24 11:49 0.25 mg ONCE ONE Administration Protocol Diltiazem HCl 20 mg 09/21/24 10:03 09/21/24 10:10 Diltiazem Hcl 50 Mg/10 Ml Vial IVPUSH 09/21/24 10:04 20 mg STAT STA Administration Diltiazem HCl 15 mg 09/21/24 10:19 09/21/24 10:28 Diltiazem Hcl 50 Mg/10 Ml Vial IVPUSH 09/21/24 10:20 15 mg STAT STA Administration Sodium Chloride 1,000 mls @ 999 mls/hr 09/21/24 10:30 09/21/24 11:34 Ns IV 09/21/24 11:30 Infused .Q1H1M GUTIERREZ Infusion Metoprolol Tartrate 25 mg 09/21/24 11:37 09/21/24 11:53 Metoprolol Tartrate 25 Mg Tablet PO 09/21/24 11:38 25 mg ONCE ONE Administration Protocol Metoprolol Tartrate 5 mg 09/21/24 11:48 09/21/24 13:13 Metoprolol Tartrate 5 Mg/5 Ml Vial IVPUSH 09/21/24 11:49 5 mg ONCE ONE Administration Protocol Medical Decision Making Medical Decision Making MDM Narrative: 54 yo male with history of COPD, former smoker, depression, HFpEF, HTN, HLD, GERD, pernicious anemia, stable CAD, morbid obesity, former ETOH use (weeks ago), former cocaine use, PTSD, who had recent admission to [facility] for COPD exacerbation presents to the ER from Dr. Brooks's office for evaluation of new onset rapid atrial fibrillation w/ HR 170s. On arrival to the ER HR 170s, with BP 150/120s. NO symptoms currently. IV established and patient given 20mg IV diltiazem. no signs of over CHF on exam. He had an ECHO 11/06 that showed EF 55-60%. He continued to be tachycardic w/ HR 120s occasionally jumping up to 170s so another 15mg IV diltiazem was given. IVF started. 11:30 - minimal response to diltiazem. infusion ordered and running at 15 mg/hr. HR 150s. remains asymptomatic. troponin 1058. likely demand from rapid afib although he does have CAD. cardiology aware. Dr. Hsu to come see the patient now 11:55 - Dr. Hsu recommending Eliquis, lopressor, dig load 1:15 - HR improved to 130s. BP remains stable. getting dig load and IV lopressor now, delay with nursing availability. plan for admission to telemetry. Differential Diagnosis Differential Diagnoses: The differential diagnosis associated with the presentation includes new onset rapid afib, holiday heart, ACS, PE Admission/Observation Consideration of admission/observation: Escalation of care including admission/observation considered Consult Healthcare Provider Management of the patient was discussed with: Hospitalist and Train Crew Member Dr. Smith Lab Data MDM Lab Attestation statement: I reviewed the patient's lab results. leukocytosis likely due to prednisone, no signs of bacterial infection 09/21/24 10:08 09/21/24 10:08 Labs: Lab Results 09/21/24 09/21/24 Range/Units 10:08 10:33 WBC 21.5 H (4.8-10.8) X10*3/uL RBC 4.64 (4.60-5.80) X10*6/uL Hgb 13.8 L (14.0-18.0) g/dl Hct 41.1 L (42.0-52.0) % MCV 88.6 (80.0-98.0) fL MCH 29.7 (27.0-33.0) pg MCHC 33.6 (31.0-36.0) g/dl RDW 13.5 (11.0-16.0) % Plt Count 322 (160-400) X10*3/uL MPV 10.0 (9.4-12.4) fL Immature Gran % (Auto) Cancelled Neut % (Auto) Cancelled Lymph % (Auto) Cancelled Horry % (Auto) Cancelled Eos % (Auto) Cancelled Baso % (Auto) Cancelled Lymph # (Auto) Cancelled Horry # (Auto) Cancelled Eos # (Auto) Cancelled Baso # (Auto) Cancelled Abs Immat Gran (auto) Cancelled Absolute Neuts (auto) Cancelled Absolute Nucleated RBC 0.000 (0.0-0.012) X10*3/uL Nucleated RBC % (auto) 0.0 (0.0-0.2) /100WBC Neutrophils % (Manual) 78 H (45-73) % Band Neutrophils % 2 L (3-5) % Lymphocytes % (Manual) 14 L (20-40) % Atypical Lymphs % (Man) 1 (0-6) % Monocytes % (Manual) 3 (2-11) % Myelocytes % 2 % Abs Neuts (Manual) 17.2 H (2.0-8.3) X10*3/uL Lymphocytes # (Manual) 3.0 (1.2-4.9) X10*3/uL Atyp Lymphs # (Manual) 0.2 x10*3/uL Monocytes # (Manual) 0.6 (0.1-1.2) X10*3/uL Myelocytes # 0.4 X10*/uL Platelet Estimate NORMAL (NORMAL) Plt Morphology Comment NORMAL RBC Morphology NORMAL PT 10.7 L (10.9-12.4) SEC INR 0.9 (0.9-1.1) APTT 25.7 L (26.0-36.8) SEC Sodium 138 (135-145) mmol/L Potassium 4.2 (3.3-5.1) mmol/L Chloride 103 (96-108) mmol/L Carbon Dioxide 24 (22-29) mmol/L Anion Gap 15 (12-20) BUN 21 H (9-16) mg/dL Creatinine 1.09 (0.5-1.4) mg/dL Estim Creat Clear Calc 110.8 Estimated GFR > 60 Random Glucose 170 H (60-115) mg/dL Calcium 9.6 D (8.4-10.2) mg/dL Magnesium 2.4 (1.6-2.6) mg/dL Total Bilirubin 0.3 (0.0-1.0) mg/dL Direct Bilirubin 0.1 (0.0-0.5) mg/dL AST 15 (5-37) U/L ALT 20 (0-40) U/L Alkaline Phosphatase 48 (39-117) U/L Troponin I High Sens 1058.3 H* D (<3.5-35.0) ng/L B-Natriuretic Peptide 347 H (<100) pg/mL Total Protein 7.5 (6.5-8.0) g/dL Albumin 4.2 (3.5-5.0) g/dL TSH 1.61 (0.32-4.0) uIU/mL Urine Color Yellow Urine Appearance Clear Urine pH 5.5 (5.0-9.0) Ur Specific Atkins 1.020 (1.005-1.025) Urine Protein Negative (Neg-Trace) mg/dL Urine Glucose (UA) Negative (Negative) mg/dL Urine Ketones Trace (Negative) mg/dL Urine Blood Negative (Negative) Urine Nitrite Negative (Negative) Ur Leukocyte Esterase Negative (Negative) Urine Opiates Screen Not Detected (Not Detect) Ur Buprenorphine Scrn Not Detected (Not Detect) ng/mL Ur Oxycodone Screen Not Detected (Not Detect) ng/mL Urine Methadone Screen Not Detected (Not Detect) ng/mL Urine Fentanyl Screen Not Detected (Not Detect) Ur Barbiturates Screen Not Detected (Not Detect) Ur Phencyclidine Scrn Not Detected (Not Detect) Ur Amphetamines Screen Not Detected (Not Detect) U Benzodiazepines Scrn Not Detected (Not Detect) Urine Cocaine Screen POSITIVE H (Not Detect) U Marijuana (THC) Screen Not Detected (Not Detect) Influenza Type A (PCR) NEGATIVE (Negative) Influenza Type B (PCR) NEGATIVE (Negative) RSV RNA Qual (PCR) NEGATIVE (Negative) SARS-CoV-2 RNA (RT-PCR) NEGATIVE (Negative) Independent Interpretation I performed an independent interpretation of an: EKG and Plain X-Ray Interpretation: ekg #1 at 10:05 - afib w/ RVR, HR 168, ST depressions and t-wve inversions on lead II, V5-V6. cxr clear with no pulmonary edema Radiology Impression Discussion of test interpretation with radiology: I have reviewed the radiologist's reading. External Record Review External record reviewed: Inpatient record, Outpatient record, Prior outpatient labs and Prior outpatient radiology Tests considered The following testing was considered but not selected: CTA considered - low suspicion for PE Prescription Management I considered prescription management with: Other (antiarrythmic, anticoagulant ) Chronic Conditions Patient?s care impacted by: Hypertension and Other (CAD, cocaine use, morbid obesity) Social Determinants Patient?s care significantly limited by Social Determinants of Health including: Other Social Determinant of Health Critical Care Time Critical Care Time Critical Care Time: Yes Total Critical Care Time: 58 Attestation: I have personally provided critical care time exclusive of time spent on separately billable procedures. Time includes review of lab data, radiology results, discussion with consultants, and monitoring for potential decompensation. Intervention performed as documented. Discharge Plan Discharge Clinical Impression: Atrial fibrillation, new onset, Non-ST elevation [place] (NSTEMI) Patient Disposition: Admitted As Inpatient Print Language: Indonesian
--- OUTSIDE RECORDS SUMMARY | 2024-09-21 09:58 | XMS_ITS | Encounter Summary ---
Author Organization [facility] Address [address] [place] [address] Care Team Providers Care Chair Car Driver Name Role Phone Pcp, No Primary Care Provider Unavailabl e Encounter Details Date Type Department Care Team (Late st Contact Info) Description 10/15/2023 Scanned Document [facility] [address] [facility] [address] [place] [id number] Radiology, Scan Social History Tobacco Use [...] on filedocumented in this encounter Care Teams Chair Car Driver Relationship Specialty Start Date End Date Pcp, No PCP - General General Medicine 12/06/23 documented as of this encounter
--- OUTSIDE RECORDS SUMMARY | 2024-09-21 09:58 | XMS_ITS | Clinical Summary ---
Author Organization [facility] Address [address] [place] [address] Care Team Providers Care Bag Liner Name Role Phone Pcp, No Primary Care [...] (1 - 2023-25 season) 2024 Care Teams Bag Liner Relationship Specialty Start Date End Date Pcp, No PCP - General General Medicine 12/06/23
--- OUTSIDE RECORDS SUMMARY | 2024-09-21 09:58 | XMS_ITS | Clinical Summary ---
Author Organization [facility] Address [address] [place] [address] Care Team Providers Care Applications Support Specialist Name Role Phone Yulissa Keyes MD Primary Care Provider Social History Tobacco Use Types Packs/Day Years [...] age to complete this topic Care Teams Applications Support Specialist Relationship Specialty Start Date End Date Yulissa Keyes MD [address] [place] [address] , [address] [facility] D[facility]A: [facility] OBEY Garcia PCP - General Internal Medicine 08/04/17
[2024-09-21] MEDS: dilTIAZem HCL 50 MG/10 ML VIAL 20 MG IVPUSH (10:10)
--- NOTE | 2024-09-21 10:16 | PC.NURSE ---
patient presents to the ED from cardiology appt noted to be in afib RVR. patient has no hx of afib. patient is alert and oriented x4, ambulatory. patient denies any sob/palpitations today, states yesterday he had chest pain and right arm pain yesterday. rate 130s-170s. 18# placed in the LAC, labs drawn and sent.
[2024-09-21 10:17] LABS: Hematocrit 41.1 % (42.0-52.0); Hemoglobin 13.8 g/dl (14.0-18.0); Mean Corpuscular HGB Conc 33.6 g/dl (31.0-36.0); Mean Corpuscular Hemoglobin 29.7 pg (27.0-33.0); Mean Corpuscular Volume 88.6 fL (80.0-98.0); Platelet Count 322 X10*3/uL (160-400); Red Blood Count 4.64 X10*6/uL (4.60-5.80); Red Cell Distribution Width 13.5 % (11.0-16.0); White Blood Count 21.5 X10*3/uL (4.8-10.8)
[2024-09-21 10:23] LABS: INTERNATIONAL NORM RATIO 0.9 (0.9-1.1); Prothrombin Time 10.7 SEC (10.9-12.4)
[2024-09-21 10:25] LABS: Partial Thromboplastin Time 25.7 SEC (26.0-36.8)
[2024-09-21] MEDS: dilTIAZem HCL 50 MG/10 ML VIAL 15 MG IVPUSH (10:28)
[2024-09-21] MEDS: 0.9 % Sodium Chloride 1,000 ML 999 ML IV (10:31)
[2024-09-21 10:41] LABS: B Type Natriuretic Peptide 347 pg/mL (<100)
[2024-09-21 10:46] LABS: Alanine Aminotransferase 20 U/L (0-40); Albumin Level 4.2 g/dL (3.5-5.0); Alkaline Phosphatase 48 U/L (39-117); Anion Gap 15 (12-20); Aspartate Amino Transferase 15 U/L (5-37); Bilirubin Direct 0.1 mg/dL (0.0-0.5); Bilirubin Total 0.3 mg/dL (0.0-1.0); Blood Urea Nitrogen 21 mg/dL (9-16); Calcium 9.6 mg/dL (8.4-10.2); Carbon Dioxide 24 mmol/L (22-29); Chloride 103 mmol/L (96-108); Creatinine Clr Calc Pharmacy 110.8; Estimated Glomerular Filt Rate > 60; Glucose Random 170 mg/dL (60-115); Magnesium 2.4 mg/dL (1.6-2.6); Potassium 4.2 mmol/L (3.3-5.1); Sodium 138 mmol/L (135-145); Total Protein 7.5 g/dL (6.5-8.0)
[2024-09-21 10:47] LABS: Troponin-I High Sensitivity 1058.3 ng/L (<3.5-35.0)
[2024-09-21 10:49] LABS: Appearance Urine Clear; Color Urine Yellow; Glucose Urine UA Negative (Negative); Leukocyte Esterase Urine Negative (Negative); Nitrite Urine Negative (Negative); PH 5.5 (5.0-9.0); Urine Blood Negative (Negative); Urine Ketones Trace mg/dL (Negative); Urine Protein Negative (Neg-Trace)
[2024-09-21 10:51] LABS: Atypical Lymph Absolute Manual 0.2 x10*3/uL; Atypical Lymphs Percent Manual 1 % (0-6); Band Neutrophils Percent 2 % (3-5); Lymphocytes Percent Manual 14 % (20-40); Monocytes Absolute Manual 0.6 X10*3/uL (0.1-1.2); Monocytes Percent Manual 3 % (2-11); Myelocytes Absolute 0.4 X10*/uL; Myelocytes Percent 2 %; Neutrophils Absolute Manual 17.2 X10*3/uL (2.0-8.3); Neutrophils Percent Manual 78 % (45-73); Platelet Estimate NORMAL (NORMAL); Platelet Morphology Comment NORMAL; RBC Morphology NORMAL
[2024-09-21 10:58] LABS: Amphetamine Screen Urine Not Detected (Not Detect); Barbiturates, Urine Not Detected (Not Detect); Benzodiazepines Screen Urine Not Detected (Not Detect); Buprenorphine Scr Not Detected (Not Detect); Cannabinoid Screen Urine Not Detected (Not Detect); Cocaine Screen Urine POSITIVE (Not Detect); Fentanyl, urine Not Detected (Not Detect); Methadone Screen, Urine Not Detected (Not Detect); Opiate Screen Urine Not Detected (Not Detect); Oxycodone Screen Urine Not Detected (Not Detect); Phencyclidine Screen Urine Not Detected (Not Detect)
[2024-09-21 11:00] LABS: TSH reflex Free T4 1.61 uIU/mL (0.32-4.0)
[2024-09-21] MEDS: dilTIAZem HCL 125 MG in 0.9 % Sodium Chloride 100 ML 10 MG IVCONT (11:01)
[2024-09-21] MEDS: clonazePAM 1 MG TABLET 2 MG PO ×2 (11:06→20:59)
[2024-09-21 11:15] LABS: Influenza A PCR NEGATIVE (Negative); Influenza B PCR NEGATIVE (Negative); Resp Syncy Virus RNA Qual PCR NEGATIVE (Negative); SARS COV2 PCR INHOUSE NEGATIVE (Negative)
[2024-09-21] MEDS: Metoprolol Tartrate 25 MG TABLET PO (11:53)
--- NOTE | 2024-09-21 11:55 | P.CONCA_ITS ---
History of Present Illness History of Present Illness Date of Service: 09/21/24 Requesting physician: Aury Arteaga Chief complaint: Afib with RVR Narrative: 54-year-old gentleman who is admitted from [facility]iology [facility] with AFib with RVR. He came for routine visit and was noticed to be tachycardic and EKG confirmed AFib with RVR. He recently was in the hospital on September 09 when he had viral illness with bronchitis like episode and was treated with COPD exacerbation. He was given antibiotics and steroids. The patient is saying that they told him that he had pneumonia. He said he was recovering from this and was feeling okay. Yesterday he had 3 hours of right arm discomfort. These symptoms were self-limiting. He did not have any palpitations or any other complaints. Today in the office EKGs showed AFib with RVR and was sent to the emergency department. He was started on Cardizem drip and is currently maxed out with heart rate in 150s. He has cocaine positive on his urine drug screen. Denying any other complaints currently. [facility] Past Medical History Medical History (Updated 09/21/24 @ 11:41 by ROBIN Wood) Atherosclerotic cardiovascular disease Emphysema lung Personal history of nicotine dependence Tubular adenoma of colon Cocaine abuse Lactic acid acidosis Hypoxemia Opioid overdose COVID-19 COPD (chronic obstructive pulmonary disease) History of pneumonia Positive colorectal cancer screening using Cologuard test Gout Essential hypertension Lymphopenia Mixed hyperlipidemia Pernicious anemia Lumbar degenerative disc disease GERD (gastroesophageal reflux disease) Family History Family History Father Lung cancer Mother Chronic mental illness Alzheimer disease Maternal Grandmother Bone cancer Hypertension Paternal Grandmother Brain cancer Maternal Uncle Cancer Family/Other Chronic mental illness Substance use disorder Surgical History Surgical History History of colonoscopy History of esophagogastroduodenoscopy (EGD) History of surgery Status post surgical removal of malignant neoplasm of skin History of shoulder surgery History of arthroscopy of left knee History of total left knee replacement Social History Social History Household Members: Family and Other Household Members Other:: 2 room mates Housing: Apartment Alcohol intake: former Comment: refsued, wants to be indep Patient Tobacco Use Status: Former Tobacco user Tobacco use type: Cigarette Cigarettes Per Day: 10 e-Cigarette/Vaping Use: Never Used Second Hand Smoke Exposure: No Substance Use Type: Crack/Cocaine Advance Directives: No Advance Directives Information Provided: Yes Do you have a plan to hurt others: No Plan service: No Current occupational status: unemployed and disabled Cognitive needs: No Hearing needs: No Vision needs: Yes Meds Allergies Allergy/AdvReac Type Severity Reaction Status Date / Time bee stings Allergy Severe Anaphylaxis Verified 09/21/24 09:44 hydromorphone [From DILAUDID] AdvReac Severe VIOLENTLY Verified 09/21/24 09:44 ILL NEEDS TO EAT FIRST Active Medications: Current Medications Diltiazem HCl 125 mg/ Sodium (Chloride) 125 mls @ 0 mls/hr IVCONT .Q0M GUTIERREZ; Protocol Last Titration: 09/21/24 11:26 Dose: 15 mg/hr, 15 mls/hr Home Medications ?Medication ?Instructions ?Recorded ?Confirmed ?Last Taken ?Type oxcarbazepine 600 mg tablet 600 mg PO BID 09/10/20 09/21/24 09/08/24 History buspirone 10 mg tablet 10 mg PO TID 10/06/23 09/21/24 09/08/24 History clonazepam 2 mg tablet 2 mg PO TID 10/06/23 09/21/24 09/08/24 History hydroxyzine pamoate 25 mg capsule 25 mg PO BID PRN Anxiety 10/06/23 09/21/24 Unknown History oxcarbazepine 300 mg tablet 300 mg PO BID 10/06/23 09/21/24 09/08/24 History zolpidem 10 mg tablet 10 mg PO BEDTIME PRN Insomnia 10/06/23 09/21/24 Unknown History aripiprazole 15 mg tablet 15 mg PO DAILY 06/02/24 09/21/24 09/08/24 History bupropion HCl 150 mg 24 hr tablet, 150 mg PO DAILY 06/02/24 09/21/24 09/08/24 History extended release albuterol sulfate 2.5 mg/3 mL 2.5 mg inhalation TID PRN 09/09/24 09/21/24 Unknown History (0.083 %) solution for nebulization Shortness Of Breath Or Wheezing colchicine 0.6 mg tablet 0.6 mg PO DAILY PRN gout flare 09/09/24 09/21/24 Unknown History furosemide 40 mg tablet 40 mg PO DAILY 09/09/24 09/21/24 09/08/24 History pantoprazole 40 mg tablet,delayed 40 mg PO DAILY@0630 09/09/24 09/21/24 09/08/24 History release Physical Exam 2 Vital Signs: Vital Signs: Last Vital Signs Temp 98.5 F 09/21/24 09:40 Pulse 165 H 09/21/24 11:53 Resp 16 09/21/24 10:22 BP 113/69 09/21/24 11:53 Pulse Ox 97 09/21/24 09:40 O2 Del Method Room Air 09/21/24 09:40 BMI result Body Mass Index 39.6 GENERAL APPEARANCE: in no acute distress. NECK: no carotid bruit, no jugular venous distention. SKIN: no suspicious lesions, warm and dry. HEART: no murmurs, irregular rate and rhythm. Tachycardic. LUNGS: clear to auscultation bilaterally. ABDOMEN: soft, nontender. EXTREMITIES: no edema. PERIPHERAL PULSES: equal. NEUROLOGIC: No gross deficits, AAO X 3 Objective Labs and Meds 09/21/24 10:08 09/21/24 10:08 Lab results: Laboratory Results - last 24 hr 09/21/24 09/21/24 10:08 10:33 WBC 21.5 H RBC 4.64 Hgb 13.8 L Hct 41.1 L MCV 88.6 MCH 29.7 MCHC 33.6 RDW 13.5 Plt Count 322 MPV 10.0 Immature Gran % (Auto) Cancelled Neut % (Auto) Cancelled Lymph % (Auto) Cancelled [place] % (Auto) Cancelled Eos % (Auto) Cancelled Baso % (Auto) Cancelled Lymph # (Auto) Cancelled [place] # (Auto) Cancelled Eos # (Auto) Cancelled Baso # (Auto) Cancelled Abs Immat Gran (auto) Cancelled Absolute Neuts (auto) Cancelled Absolute Nucleated RBC 0.000 Nucleated RBC % (auto) 0.0 Neutrophils % (Manual) 78 H Band Neutrophils % 2 L Lymphocytes % (Manual) 14 L Atypical Lymphs % (Man) 1 Monocytes % (Manual) 3 Myelocytes % 2 Abs Neuts (Manual) 17.2 H Lymphocytes # (Manual) 3.0 Atyp Lymphs # (Manual) 0.2 Monocytes # (Manual) 0.6 Myelocytes # 0.4 Platelet Estimate NORMAL Plt Morphology Comment NORMAL RBC Morphology NORMAL PT 10.7 L INR 0.9 APTT 25.7 L Sodium 138 Potassium 4.2 Chloride 103 Carbon Dioxide 24 Anion Gap 15 BUN 21 H Creatinine 1.09 Estim Creat Clear Calc 110.8 Estimated GFR > 60 Random Glucose 170 H Calcium 9.6 D Magnesium 2.4 Total Bilirubin 0.3 Direct Bilirubin 0.1 AST 15 ALT 20 Alkaline Phosphatase 48 Troponin I High Sens 1058.3 H* D B-Natriuretic Peptide 347 H Total Protein 7.5 Albumin 4.2 TSH 1.61 Urine Color Yellow Urine Appearance Clear Urine pH 5.5 Ur Specific [place] 1.020 Urine Protein Negative Urine Glucose (UA) Negative Urine Ketones Trace Urine Blood Negative Urine Nitrite Negative Ur Leukocyte Esterase Negative Urine Opiates Screen Not Detected Ur Buprenorphine Scrn Not Detected Ur Oxycodone Screen Not Detected Urine Methadone Screen Not Detected Urine Fentanyl Screen Not Detected Ur Barbiturates Screen Not Detected Ur Phencyclidine Scrn Not Detected Ur Amphetamines Screen Not Detected U Benzodiazepines Scrn Not Detected Urine Cocaine Screen POSITIVE H U Marijuana (THC) Screen Not Detected Influenza Type A (PCR) NEGATIVE Influenza Type B (PCR) NEGATIVE RSV RNA Qual (PCR) NEGATIVE SARS-CoV-2 RNA (RT-PCR) NEGATIVE Imaging Radiologist's impression: Impressions Chest X-Ray 09/21/24 09:35 IMPRESSION: No active disease. No change. Electronically signed by: Ilia Wilson MD 09/21/2024 10:56 AM [facility] [place] Assessment and Plan (1) Atrial fibrillation, new onset: Status: Acute (2) Non-ST elevation IN (NSTEMI): Status: Acute Plan [age] year gentleman with substance abuse, hypertension, COPD, coronary disease based on coronary CTA (moderate disease) and diastolic dysfunction presenting with AFib with RVR. He is positive for cocaine. His high sensitivity troponin levels are 1058. EKGs showing AFib with RVR with lateral ST depressions. He is denying any chest discomfort shortness of breath and he is saying that he feels great and wishes to go home. He is currently maxed out on Cardizem. He is on Toprol-XL 50 mg daily at home. Give 5 minute we Lopressor. Increase Toprol-XL to 50 mg twice a day. Load him with digoxin 250 mcg x 3. Once he gets metoprolol and heart rate starts improving Cardizem should be discontinued because it is not really working for him. Keep NPO after midnight. He may need MICHI cardioversion tomorrow. If heart rate improved well with metoprolol and digoxin then we will leave him on Eliquis and do cardioversion in 4 weeks. Thank you for allowing me to participate in the care of your patient. Please feel free to contact me if you have any questions. Procedures Date of Service Date of Service: 09/21/24
[2024-09-21] MEDS: Digoxin 0.5 MG/2 ML AMPUL 0.25 MG IVPUSH ×3 (13:13→20:47)
[2024-09-21] MEDS: Metoprolol Tartrate 5 MG/5 ML VIAL IVPUSH (13:13)
[2024-09-21] MEDS: Apixaban 5 MG TABLET PO ×2 (13:14→20:40)
--- NOTE | 2024-09-21 14:28 | P.HPHOSP_ITS ---
History of Present Illness Date of Service: 09/21/24 Attending physician on admission: Norris Ochoa Chief Complaint: palpatations 54 yom with pmhx COPD, former smoker, depression, HFpEF, HTN, HLD, GERD, pernicious anemia, stable CAD, morbid obesity, former ETOH use (weeks ago), former cocaine use, PTSD, who had recent admission [place] [facility] [place] exacerbation/multifocal pneumonia -came to ed ( sent from cardiolofy office- new onset rapid atrial fibrillation w/ HR 170s),has some dizziness yesterday,pain in his right anticubital fossa area that self-resolved. He was laying down at the time. Denies any chest pain or shortness of breath no abdominal pain or nausea vomiting. Also denies use of cocaine even though his urine cocaine test is positive. Has leukocytosis WBC of 21, bmp fine, tsh normal,troponins 1058. ekg -afib rvr @168 vent rate. cxr-seems fine. patient on dilitazem drip max,also received does of metoprolol,digoxin ,seen by cardiology rec to continue diltizem drip ,in addition added metopolol and digoxin loading:hr is improivng now running 110-130 range. Review of Systems 2 Review of Systems: as above. Yes all other systems are reviewed and are negative [facility] Medical History Atherosclerotic cardiovascular disease Emphysema lung Personal history of nicotine dependence Tubular adenoma of colon Cocaine abuse Lactic acid acidosis Hypoxemia Opioid overdose COVID-19 COPD (chronic obstructive pulmonary disease) History of pneumonia Positive colorectal cancer screening using Cologuard test Gout Essential hypertension Lymphopenia Mixed hyperlipidemia Pernicious anemia Lumbar degenerative disc disease GERD (gastroesophageal reflux disease) Family History Father Lung cancer Mother Chronic mental illness Alzheimer disease Maternal Grandmother Bone cancer Hypertension Paternal Grandmother Brain cancer Maternal Uncle Cancer Family/Other Chronic mental illness Substance use disorder Surgical History History of colonoscopy History of esophagogastroduodenoscopy (EGD) History of surgery Status post surgical removal of malignant neoplasm of skin History of shoulder surgery History of arthroscopy of left knee History of total left knee replacement Social History Household Members: Family Household Members Other:: 2 room mates Housing: House Alcohol intake: former Comment: refsued, wants to be indep Patient Tobacco Use Status: Former Tobacco user Tobacco use type: Cigarette Cigarettes Per Day: 10 e-Cigarette/Vaping Use: Never Used Second Hand Smoke Exposure: No Use of substances other than those prescribed or required for medical reasons: No Substance Use Type: Crack/Cocaine Advance Directives: No Advance Directives Information Provided: Yes Do you have a plan to hurt others: No Plan service: No Current occupational status: unemployed and disabled Cognitive needs: No Hearing needs: No Vision needs: Yes Meds Allergies Allergy/AdvReac Type Severity Reaction Status Date / Time bee stings Allergy Severe Anaphylaxis Verified 09/21/24 09:44 hydromorphone [From DILAUDID] AdvReac Severe VIOLENTLY Verified 09/21/24 09:44 ILL NEEDS TO EAT FIRST Active Medications: Current Medications Acetaminophen (Acetaminophen 325 Mg Tablet) 650 mg PO Q6H PRN PRN Reason: Pain, Mild 1-3,fever,headache Albuterol/Ipratropium (Albuterol/Iprat 2.5/0.5mg 3 Ml Ampul.Neb) 3 ml INHALE RQ4H WHILE AWAKE GUTIERREZ Apixaban (Apixaban 2.5 Mg Tablet) 2.5 mg PO BID GUTIERREZ Calcium Carbonate (Calcium Carbonate 750 Mg Tab.Chew) 750 mg PO Q4H PRN PRN Reason: Heartburn Cefuroxime Axetil (Cefuroxime Axetil 500 Mg Tablet) 500 mg PO Q12H GUTIERREZ Digoxin (Digoxin 0.5 Mg/2 Ml Ampul) 0.25 mg IVPUSH Q6H GUTIERREZ; Protocol Stop: 09/21/24 20:31 Diltiazem HCl 125 mg/ Sodium (Chloride) 125 mls @ 0 mls/hr IVCONT .Q0M GUTIERREZ; Protocol Last Titration: 09/21/24 11:26 Dose: 15 mg/hr, 15 mls/hr Magnesium Hydroxide (Milk Of Magnesia 30 Ml Oral.Susp) 30 ml PO DAILY PRN PRN Reason: Constipation Melatonin (Melatonin 3 Mg Tablet) 6 mg PO BEDTIME PRN PRN Reason: Insomnia Metoprolol Succinate (Metoprolol Succinate Er 50 Mg Tab.Er.24h) 50 mg PO BID GUTIERREZ; Protocol Prednisone (Prednisone 20 Mg Tablet) 40 mg PO DAILY [facility] Sodium Chloride (0.9 % Sodium Chloride Flush 3 Ml Syringe) 3 ml IVFLUSH QSHIFT [facility] Home Medications ?Medication ?Instructions ?Recorded ?Confirmed ?Last Taken ?Type oxcarbazepine 600 mg tablet 600 mg PO BID 09/10/20 09/21/24 09/20/24 History buspirone 10 mg tablet 10 mg PO TID 10/06/23 09/21/24 09/20/24 History clonazepam 2 mg tablet 2 mg PO TID 10/06/23 09/21/24 09/20/24 History hydroxyzine pamoate 25 mg capsule 25 mg PO BID PRN Anxiety 10/06/23 09/21/24 Unknown History oxcarbazepine 300 mg tablet 300 mg PO BID 10/06/23 09/21/24 09/20/24 History zolpidem 10 mg tablet 10 mg PO BEDTIME PRN Insomnia 10/06/23 09/21/24 Unknown History aripiprazole 15 mg tablet 15 mg PO DAILY 06/02/24 09/21/24 09/20/24 History bupropion HCl 150 mg 24 hr tablet, 150 mg PO DAILY 06/02/24 09/21/24 09/20/24 History extended release albuterol sulfate 2.5 mg/3 mL 2.5 mg inhalation TID PRN 09/09/24 09/21/24 09/20/24 History (0.083 %) solution for nebulization Shortness Of Breath Or Wheezing furosemide 40 mg tablet 40 mg PO DAILY 09/09/24 09/21/24 09/20/24 History pantoprazole 40 mg tablet,delayed 40 mg PO DAILY@0630 09/09/24 09/21/24 09/20/24 History release azithromycin 500 mg tablet 500 mg PO DAILY 09/21/24 09/21/24 09/20/24 History cefuroxime axetil 500 mg tablet 500 mg PO BID 09/21/24 09/21/24 09/20/24 History prednisone 10 mg tablet See Taper PO DAILY 09/21/24 09/21/24 09/20/24 History umeclidinium 62.5 mcg-vilanterol 1 ea inhalation DAILY 09/21/24 09/21/2409/20/25 History 25 mcg/actuation powdr for inhalation (Anoro Ellipta) Physical Exam 2 Vital Signs and Narrative: Vital Signs: Last Vital Signs Temp 98.5 F 09/21/24 09:40 Pulse 130 H 09/21/24 13:20 Resp 16 09/21/24 13:20 BP 112/83 09/21/24 13:20 Pulse Ox 95 09/21/24 13:20 O2 Del Method Room Air 09/21/24 13:20 BMI result Body Mass Index 39.6 Appearance: Alert.? Oriented X3.? ? cvs: irregular rythem , [id number] . res: air entry fair ,has few scattered rhonchii abd: no rebound or guarding ,nt, bs present. ext pulses present , no cyanosis . neuro: axo3 , nonfocal. Results Labs 09/21/24 10:08 09/21/24 10:08 Labs: Laboratory Results - last 24 hr 09/21/24 09/21/24 10:08 10:33 MCV 88.6 MCH 29.7 MCHC 33.6 RDW 13.5 Plt Count 322 MPV 10.0 Immature Gran % (Auto) Cancelled Neut % (Auto) Cancelled Lymph % (Auto) Cancelled [place] % (Auto) Cancelled Eos % (Auto) Cancelled Baso % (Auto) Cancelled Lymph # (Auto) Cancelled [place] # (Auto) Cancelled Eos # (Auto) Cancelled Baso # (Auto) Cancelled Abs Immat Gran (auto) Cancelled Absolute Neuts (auto) Cancelled Absolute Nucleated RBC 0.000 Nucleated RBC % (auto) 0.0 Neutrophils % (Manual) 78 H Band Neutrophils % 2 L Lymphocytes % (Manual) 14 L Atypical Lymphs % (Man) 1 Monocytes % (Manual) 3 Myelocytes % 2 Abs Neuts (Manual) 17.2 H Lymphocytes # (Manual) 3.0 Atyp Lymphs # (Manual) 0.2 Monocytes # (Manual) 0.6 Myelocytes # 0.4 Platelet Estimate NORMAL Plt Morphology Comment NORMAL RBC Morphology NORMAL PT 10.7 L INR 0.9 APTT 25.7 L Anion Gap 15 Estim Creat Clear Calc 110.8 Estimated GFR > 60 Random Glucose 170 H Calcium 9.6 D Magnesium 2.4 Total Bilirubin 0.3 Direct Bilirubin 0.1 AST 15 ALT 20 Alkaline Phosphatase 48 Troponin I High Sens 1058.3 H* D B-Natriuretic Peptide 347 H Total Protein 7.5 Albumin 4.2 TSH 1.61 Urine Color Yellow Urine Appearance Clear Urine pH 5.5 Ur Specific [place] 1.020 Urine Protein Negative Urine Glucose (UA) Negative Urine Ketones Trace Urine Blood Negative Urine Nitrite Negative Ur Leukocyte Esterase Negative Urine Opiates Screen Not Detected Ur Buprenorphine Scrn Not Detected Ur Oxycodone Screen Not Detected Urine Methadone Screen Not Detected Urine Fentanyl Screen Not Detected Ur Barbiturates Screen Not Detected Ur Phencyclidine Scrn Not Detected Ur Amphetamines Screen Not Detected U Benzodiazepines Scrn Not Detected Urine Cocaine Screen POSITIVE H U Marijuana (THC) Screen Not Detected Influenza Type A (PCR) NEGATIVE Influenza Type B (PCR) NEGATIVE RSV RNA Qual (PCR) NEGATIVE SARS-CoV-2 RNA (RT-PCR) NEGATIVE Imaging Radiologist's Impressions: Impressions Chest X-Ray 09/21/24 09:35 IMPRESSION: No active disease. No change. Electronically signed by: Ilia Wilson MD 09/21/2024 10:56 AM [facility] Assessment and Plan (1) Non-ST elevation AL (NSTEMI): Status: Acute (2) Atrial fibrillation, new onset: Status: Acute Plan 54 y/o M with substance abuse, hypertension, COPD, coronary disease based on coronary CTA (moderate disease) and diastolic dysfunction presenting with AFib with RVR. He is positive for cocaine. His high sensitivity troponin levels are 1058. EKGs showing AFib with RVR with lateral ST depressions. He is denying any chest discomfort shortness of breath . Afib with rvr and nstemi trops ? eleavted sec to afib and cocaine /demand ,added another trop levels seen by cardiology: Increase Toprol-XL to 50 mg twice a day. Load him with digoxin 250 mcg x 3. Once he gets metoprolol and heart rate starts improving Cardizem should be discontinued. NPO after midnight. He may need MICHI cardioversion tomorrow. If heart rate improved well with metoprolol and digoxin then we will leave him on Eliquis and do cardioversion in 4 weeks. Pneumonia : no sob or cough leucocytosis is sec to steriod use . he says he is only taking po antibiotics from last 3 days. will switch him on ceftriaxone while inpatient. Cocaine positive: declined for addiction eval. strongly advised to abstain from cocaine use . Copd: not in excerebation complete prednisone taper . above management discussed with the patient and his sister at the bedside in detail length they both understand and in agreement with the above plan, time spent 70 minute, patient full code. Patient will benefit from 2 midnight stay at least considering multiple issues- afib with rvr -requiring iv diltiazem/digoxin ,also possible in setting of cocaine use. Quality Stroke Does the patient have a stroke diagnosis?: No VTE Prior VTE?: No VTE Risk Level:: Medical - moderate - high VTE Device Contraindication: N/A - Device Ordered VTE Drug Contraindication: N/A - Med Ordered
--- NOTE | 2024-09-21 14:42 | PHA.MEDREC ---
Addendum entered by Alex Talley 09/21/24 15:02: reviewed Original Note: Pharmacy Consult ? Medication Reconciliation Pharmacy has completed the medication reconciliation. Spoke to patient and at bedside to confirm med list. Patient states he is not taking Colchicine 0.6 mg ( on Indomethacin 50 mg), and Furosemide 40 mg. Patient states he is still taking Carisoprodol 350 mg, how ever last fill date 04/19/24 for 30 days, Indomethacin 50 mg, however last fill date was 09/30/23 for days days, Metoprolol succ 50 mg, however last fill date was 12/06/23 for 90 days. [place] was [place] [facility] [place]. he was sent home with Azithromycin 500 mg (patient has 2 days left), Cefuroxim axetil 500 mg ( patient has 2 days left), Prednisone 10mg taper (50 mg daily x3 days, 40 mg x3 days, 30 mg x3 days, 20 mg x3 days, 10 mg x3 days) patient is on the forth day 40 mg x3 days.
[2024-09-21 15:12] LABS: Troponin-I High Sensitivity 1269.6 ng/L (<3.5-35.0)
[2024-09-21] MEDS: cefTRIAXone sodium 1 GM VIAL IVPUSH (16:10)
[2024-09-21] MEDS: 0.9 % Sodium Chloride Flush 3 ML SYRINGE IVFLUSH (16:14)
[2024-09-21] MEDS: carisoprodoL 350 MG TABLET PO (16:15)
[2024-09-21] MEDS: levalbuterol HCL 1.25 MG/3 ML VIAL.NEB INHALE (20:23)
[2024-09-21] MEDS: dilTIAZem HCL 125 MG in 0.9 % Sodium Chloride 100 ML 15 MG IVCONT (20:37)
[2024-09-21] MEDS: Prazosin HCL 1 MG CAPSULE 2 MG PO (20:40)
[2024-09-21] MEDS: Metoprolol Succinate ER 50 MG TAB.ER.24H PO (20:40)
[2024-09-21] MEDS: Atorvastatin Calcium 40 MG TABLET PO (20:40)
[2024-09-22] VITALS (12 sets, daily range): BP systolic 95–127; BP diastolic 54–90; PULSE 61–138; RESP 16–24; TEMP 36.1–36.8; O2SAT 88–96
--- NOTE | 2024-09-22 | ECG_ITS ---
Test Reason : post cardioversion Blood Pressure : */* mmHG Vent. Rate : 67 BPM Atrial Rate : 67 BPM P-R Int : 136 ms QRS Dur : 92 ms QT Int : 384 ms P-R-T Axes : 18 -11 144 degrees QTcB Int : 405 ms Normal sinus rhythm Possible Left atrial enlargement Left ventricular hypertrophy with repolarization abnormality ( Michael product ) Abnormal ECG When compared to the previous EKG of Normal sinus rhythm has replaced Afib Referred By: Norris Ochoa Electronically Signed By: Demian Hsu
[2024-09-22] MEDS: Dextrose 5 % and Lactated Ring 1,000 ML 80 ML IVCONT (05:30)
[2024-09-22] MEDS: carisoprodoL 350 MG TABLET PO (06:38)
[2024-09-22] MEDS: Omeprazole 20 MG CAPSULE.DR PO (06:39)
--- NOTE | 2024-09-22 07:00 | CA_ITS ---
Transesophageal Echocardiogram Patient (Last, First, Middle): Froilan Nixon R Gender: Male Date of : 1970 Age: 54 Procedure Date: 09/22/2024 Procedure Type: Transesophageal Echocardiogram Location: [facility] [place] Height: 180.34 cm Weight: 141.07 kg BSA: 2.54 m2 Heart Rate: bpm Culture Manager: Referring MD: Demian Hsu MD Draw Frame Tender: Demian Hsu MD Symptoms: Afib Conclusion: ??? Normal left ventricular size and systolic function. The visually estimated ejection fraction is between 55-60%. ??? Normal right ventricular cavity size and systolic function. ??? There is no evidence of a thrombus in the left atrial appendage. Findings Left Ventricle Normal left ventricular size and systolic function. The visually estimated ejection fraction is between 55-60%. Right Ventricle Normal right ventricular cavity size and systolic function. Atria There is no evidence of a thrombus in the left atrial appendage. Aortic Valve There is a normal trileaflet aortic valve. There is no aortic valve stenosis. There is no aortic valve regurgitation. Mitral Valve The mitral valve appears normal. There is trace mitral valve regurgitation. There is no mitral valve stenosis. Pulmonic Valve The pulmonic valve was not well visualized. Tricuspid Valve Normal tricuspid valve structure. There is no tricuspid valve regurgitation. Great Vessels Small plaque is seen in the descending thoracic aorta. Pericardium/Pleural There is no evidence of pericardial effusion. Updated by Demian Hsu on 10:48 PM with Status of Final Demian Hsu MD electronically signed on 09/22/2024 10:48:02 PM with status of Final
[2024-09-22] MEDS: levalbuterol HCL 1.25 MG/3 ML VIAL.NEB INHALE ×2 (07:21→19:28)
[2024-09-22] MEDS: dilTIAZem HCL 125 MG in 0.9 % Sodium Chloride 100 ML 15 MG IVCONT (08:18)
--- NOTE | 2024-09-22 08:51 | MHC.CM.PN ---
CM met with Patient at bedside. Patient lives in a house with his Sister/Katherine, who will provide transportation to home, at dc. Patient has a [employer] 30+ hours/week and home/resume said services is Patient's goal. CM has initiated and will follow for dc planning. Patient lives in a house with Katherine and he uses both a cane and a walker to assist with mobility; Patient states that he does not have CPAP @ home. PCP is Dr. Yulissa Darby and HCP on file is
[2024-09-22] MEDS: predniSONE 20 MG TABLET 40 MG PO (09:01)
[2024-09-22] MEDS: clonazePAM 1 MG TABLET 2 MG PO ×2 (09:01→20:16)
[2024-09-22] MEDS: Fenofibrate 160 MG TABLET PO (09:01)
[2024-09-22] MEDS: Aspirin 81 MG TAB.CHEW PO (09:02)
[2024-09-22] MEDS: Metoprolol Succinate ER 50 MG TAB.ER.24H PO (09:04)
[2024-09-22] MEDS: Furosemide 40 MG TABLET PO (09:04)
[2024-09-22] MEDS: Apixaban 5 MG TABLET PO ×2 (09:05→20:16)
--- NOTE | 2024-09-22 10:34 | PM.PNCARD ---
Subjective Subjective Date of Service: 09/22/24 Interval history: Seen and examined at bedside. Physical Exam Vital Signs: Last Vital Signs Temp 97.9 F 09/22/24 07:23 Pulse 118 H 09/22/24 07:24 Resp 18 09/22/24 07:24 BP 118/80 09/22/24 07:23 Pulse Ox 94 09/22/24 07:23 O2 Del Method Room Air 09/22/24 07:23 BMI result Body Mass Index 41.0 GENERAL APPEARANCE: in no acute distress. NECK: no carotid bruit, no jugular venous distention. SKIN: no suspicious lesions, warm and dry. HEART: no murmurs, irregular rate and rhythm. Tachycardic. LUNGS: clear to auscultation bilaterally. ABDOMEN: soft, nontender. EXTREMITIES: no edema. PERIPHERAL PULSES: equal. NEUROLOGIC: No gross deficits, AAO X 3 Objective Labs and Meds 09/22/24 10:29 09/21/24 10:08 Lab results: Laboratory Results - last 24 hr 09/21/24 09/21/24 09/21/24 10:08 10:33 14:39 Neutrophils % (Manual) 78 H Band Neutrophils % 2 L Lymphocytes % (Manual) 14 L Atypical Lymphs % (Man) 1 Monocytes % (Manual) 3 Myelocytes % 2 Abs Neuts (Manual) 17.2 H Lymphocytes # (Manual) 3.0 Atyp Lymphs # (Manual) 0.2 Monocytes # (Manual) 0.6 Myelocytes # 0.4 Platelet Estimate NORMAL Plt Morphology Comment NORMAL RBC Morphology NORMAL Sodium 138 Potassium 4.2 Chloride 103 Carbon Dioxide 24 Anion Gap 15 BUN 21 H Creatinine 1.09 Estim Creat Clear Calc 110.8 Estimated GFR > 60 Random Glucose 170 H Calcium 9.6 D Magnesium 2.4 Total Bilirubin 0.3 Direct Bilirubin 0.1 AST 15 ALT 20 Alkaline Phosphatase 48 Troponin I High Sens 1058.3 H* D 1269.6 H* B-Natriuretic Peptide 347 H Total Protein 7.5 Albumin 4.2 TSH 1.61 Urine Color Yellow Urine Appearance Clear Urine pH 5.5 Ur Specific [place] 1.020 Urine Protein Negative Urine Glucose (UA) Negative Urine Ketones Trace Urine Blood Negative Urine Nitrite Negative Ur Leukocyte Esterase Negative Urine Opiates Screen Not Detected Ur Buprenorphine Scrn Not Detected Ur Oxycodone Screen Not Detected Urine Methadone Screen Not Detected Urine Fentanyl Screen Not Detected Ur Barbiturates Screen Not Detected Ur Phencyclidine Scrn Not Detected Ur Amphetamines Screen Not Detected U Benzodiazepines Scrn Not Detected Urine Cocaine Screen POSITIVE H U Marijuana (THC) Screen Not Detected Influenza Type A (PCR) NEGATIVE Influenza Type B (PCR) NEGATIVE RSV RNA Qual (PCR) NEGATIVE SARS-CoV-2 RNA (RT-PCR) NEGATIVE Imaging Radiologist's impression: Impressions Chest X-Ray 09/21/24 09:35 IMPRESSION: No active disease. No change. Electronically signed by: Ilia Wilson MD 09/21/2024 10:56 AM [facility]: A&P Assessment and plan (1) Atrial fibrillation, new onset: Status: Acute (2) Non-ST elevation [place] (NSTEMI): Status: Acute Plan 54 male with Afib with RVR, cocaine use and NSTEMI. NSTEMI-tyoe 2. On cardizem, metoprolol and loaded with dig. Plan MICHI cardioversion today. Keep NPO. Eliquis 5 mg BID. Time Spent With Patient Time: Total time managing care of this patient today ____ minutes. Progress Note: Quality Stroke Does the patient have a stroke diagnosis?: No Procedures Date of Service Date of Service: 09/22/24
[2024-09-22 10:55] LABS: Hematocrit 36.4 % (42.0-52.0); Hemoglobin 11.8 g/dl (14.0-18.0); Mean Corpuscular HGB Conc 32.4 g/dl (31.0-36.0); Mean Corpuscular Hemoglobin 29.6 pg (27.0-33.0); Mean Corpuscular Volume 91.2 fL (80.0-98.0); Mean Platelet Volume 10.2 fL (9.4-12.4); Platelet Count 252 X10*3/uL (160-400); Red Blood Count 3.99 X10*6/uL (4.60-5.80); Red Cell Distribution Width 13.7 % (11.0-16.0); White Blood Count 19.1 X10*3/uL (4.8-10.8)
--- NOTE | 2024-09-22 12:28 | P.CONAN_ITS ---
[facility] Active Problems Active Problems: All Active Problems Non-ST elevation [place] (NSTEMI) (Acute) Atrial fibrillation, new onset (Acute) Atrial fibrillation with rapid ventricular response (Acute) Atherosclerotic cardiovascular disease (Acute) Mild major depression (Acute) Physical exam (Acute) Lumbar degenerative disc disease (Acute) Bilateral knee pain (Acute) Ascending aorta dilatation (Acute) Diastolic dysfunction (Acute) Emphysema lung (Acute) Personal history of nicotine dependence (Acute) CUTLER (dyspnea on exertion) (Acute) Precordial chest pain (Acute) Tubular adenoma of colon (Acute) Low vitamin D level (Acute) Obesity (BMI 30-39.9) (Acute) COPD (chronic obstructive pulmonary disease) (Acute) Ulnar nerve entrapment at right elbow (Acute) Biceps tendonitis on right (Acute) Bone cyst of right ulna (Acute) Syncope (Acute) Right elbow tendinitis (Acute) Swelling of right hand (Acute) History of pneumonia (Acute) Positive colorectal cancer screening using Cologuard test (Acute) Gout (Acute) Lymphopenia (Acute) Mixed hyperlipidemia (Acute) Pernicious anemia (Acute) Lumbar degenerative disc disease (Acute) GERD (gastroesophageal reflux disease) (Acute) Past Medical History Medical History Atherosclerotic cardiovascular disease Emphysema lung Personal history of nicotine dependence Tubular adenoma of colon Cocaine abuse Lactic acid acidosis Hypoxemia Opioid overdose COVID-19 COPD (chronic obstructive pulmonary disease) History of pneumonia Positive colorectal cancer screening using Cologuard test Gout Essential hypertension Lymphopenia Mixed hyperlipidemia Pernicious anemia Lumbar degenerative disc disease GERD (gastroesophageal reflux disease) Family History Family History Father Lung cancer Mother Chronic mental illness Alzheimer disease Maternal Grandmother Bone cancer Hypertension Paternal Grandmother Brain cancer Maternal Uncle Cancer Family/Other Chronic mental illness Substance use disorder Surgical History Surgical History History of colonoscopy History of esophagogastroduodenoscopy (EGD) History of surgery Status post surgical removal of malignant neoplasm of skin History of shoulder surgery History of arthroscopy of left knee History of total left knee replacement History of Problems with Anesthesia: No Social History Social History Household Members: Family Household Members Other:: 2 room mates Housing: House Alcohol intake: former Comment: refsued, wants to be indep Patient Tobacco Use Status: Former Tobacco user Tobacco use type: Cigarette Cigarettes Per Day: 10 e-Cigarette/Vaping Use: Never Used Second Hand Smoke Exposure: No Use of substances other than those prescribed or required for medical reasons: Yes Substance Use Type: Crack/Cocaine Currently Displaying Signs/Symptoms of Drug Intoxication Withdrawal: No Advance Directives: No Advance Directives Information Provided: Yes Do you have a plan to hurt others: No Plan service: Yes Current occupational status: unemployed and disabled Cognitive needs: No Hearing needs: No Vision needs: Yes Meds Allergies Allergy/AdvReac Type Severity Reaction Status Date / Time bee stings Allergy Severe Anaphylaxis Verified 09/21/24 09:44 hydromorphone [From DILAUDID] AdvReac Severe VIOLENTLY Verified 09/21/24 09:44 ILL NEEDS TO EAT FIRST Active Medications: Current Medications Acetaminophen (Acetaminophen 325 Mg Tablet) 650 mg PO Q6H PRN PRN Reason: Pain, Mild 1-3,fever,headache Apixaban (Apixaban 5 Mg Tablet) 5 mg PO BID [facility] Last Admin: 09/22/24 09:05 Dose: 5 mg Aripiprazole (Aripiprazole 15 Mg Tablet) 15 mg PO DAILY [facility] Aspirin (Aspirin 81 Mg Tab.Chew) 81 mg PO DAILY [facility] Last Admin: 09/22/24 09:02 Dose: 81 mg Atorvastatin Calcium (Atorvastatin Calcium 40 Mg Tablet) 40 mg PO BEDTIME [facility] Last Admin: 09/21/24 20:40 Dose: 40 mg Bupropion HCl (Bupropion Hcl Xl 150 Mg Tab.Er.24h) 150 mg PO DAILY [facility] Calcium Carbonate (Calcium Carbonate 750 Mg Tab.Chew) 750 mg PO Q4H PRN PRN Reason: Heartburn Carisoprodol (Carisoprodol 350 Mg Tablet) 350 mg PO TID PRN PRN Reason: Muscle Spasm Ceftriaxone Sodium (Ceftriaxone Sodium 1 Gm Vial) 1 gm IVPUSH Q24H [facility] Last Admin: 09/21/24 16:10 Dose: 1 gm Clonazepam (Clonazepam 1 Mg Tablet) 2 mg PO TID [facility] Last Admin: 09/22/24 09:01 Dose: 2 mg Cyanocobalamin (Cyanocobalamin (Vitamin B-12) 1,000 Mcg Tablet) 1,000 mcg PO DAILY [facility] Fenofibrate (Fenofibrate 160 Mg Tablet) 160 mg PO DAILY [facility] Last Admin: 09/22/24 09:01 Dose: 160 mg Folic Acid (Folic Acid 1 Mg Tablet) 1 mg PO DAILY [facility] Furosemide (Furosemide 40 Mg Tablet) 40 mg PO DAILY [facility]; Protocol Last Admin: 09/22/24 09:04 Dose: 40 mg Diltiazem HCl 125 mg/ Sodium (Chloride) 125 mls @ 0 mls/hr IVCONT .Q0M [facility]; Protocol Last Admin: 09/22/24 08:18 Dose: 15 mg/hr, 15 mls/hr Dextrose/Lactated Ringer's (D5lr) 1,000 mls @ 80 mls/hr IVCONT .[id number] ONE Stop: 09/22/24 17:35 Last Admin: 09/22/24 05:30 Dose: 80 mls/hr Indomethacin (Indomethacin 25 Mg Capsule) 50 mg PO BID [facility] Last Admin: 09/21/24 20:44 Dose: Not Given Levalbuterol HCl (Levalbuterol Hcl 1.25 Mg/3 Ml Vial.Neb) 1.25 mg INHALE RTID [facility] Last Admin: 09/22/24 07:21 Dose: 1.25 mg Magnesium Hydroxide (Milk Of Magnesia 30 Ml Oral.Susp) 30 ml PO DAILY PRN PRN Reason: Constipation Meclizine HCl (Meclizine Hcl 25 Mg Tablet) 25 mg PO BID PRN PRN Reason: dizziness Melatonin (Melatonin 3 Mg Tablet) 6 mg PO BEDTIME PRN PRN Reason: Insomnia Metoprolol Succinate (Metoprolol Succinate Er 50 Mg Tab.Er.24h) 50 mg PO BID [facility]; Protocol Last Admin: 09/22/24 09:04 Dose: 50 mg Non-Formulary Medication (Umeclidinium-Vilanterol [Anoro Ellipta]) 1 each INHALE DAILY [facility] Omeprazole (Omeprazole 20 Mg Capsule.Dr) 20 mg PO DAILY@0630 [facility] Last Admin: 09/22/24 06:39 Dose: 20 mg Prazosin HCl (Prazosin Hcl 1 Mg Capsule) 2 mg PO BID [facility]; Protocol Last Admin: 09/21/24 20:40 Dose: 2 mg Prednisone (Prednisone 20 Mg Tablet) 40 mg PO DAILY [facility] Last Admin: 09/22/24 09:01 Dose: 40 mg Sodium Chloride (0.9 % Sodium Chloride Flush 3 Ml Syringe) 3 ml IVFLUSH QSHIFT [facility] Last Admin: 09/22/24 09:07 Dose: Not Given Vitamin D (Cholecalciferol (Vitamin D3) 25 Mcg Tablet) 50 mcg PO DAILY [facility] Zolpidem Tartrate (Zolpidem Tartrate 5 Mg Tablet) 10 mg PO BEDTIME PRN PRN Reason: Insomnia Home Medications ?Medication ?Instructions ?Recorded ?Confirmed ?Last Taken ?Type oxcarbazepine 600 mg tablet 600 mg PO BID 09/10/20 09/21/24 09/20/24 History buspirone 10 mg tablet 10 mg PO TID 10/06/23 09/21/24 09/20/24 History clonazepam 2 mg tablet 2 mg PO TID 10/06/23 09/21/24 09/20/24 History hydroxyzine pamoate 25 mg capsule 25 mg PO BID PRN Anxiety 10/06/23 09/21/24 Unknown History oxcarbazepine 300 mg tablet 300 mg PO BID 10/06/23 09/21/24 09/20/24 History zolpidem 10 mg tablet 10 mg PO BEDTIME PRN Insomnia 10/06/23 09/21/24 Unknown History aripiprazole 15 mg tablet 15 mg PO DAILY 06/02/24 09/21/24 09/20/24 History bupropion HCl 150 mg 24 hr tablet, 150 mg PO DAILY 06/02/24 09/21/24 09/20/24 History extended release albuterol sulfate 2.5 mg/3 mL 2.5 mg inhalation TID PRN 09/09/24 09/21/24 09/20/24 History (0.083 %) solution for nebulization Shortness Of Breath Or Wheezing furosemide 40 mg tablet 40 mg PO DAILY 09/09/24 09/21/24 09/20/24 History pantoprazole 40 mg tablet,delayed 40 mg PO DAILY@0630 09/09/24 09/21/24 09/20/24 History release azithromycin 500 mg tablet 500 mg PO DAILY 09/21/24 09/21/24 09/20/24 History cefuroxime axetil 500 mg tablet 500 mg PO BID 09/21/24 09/21/24 09/20/24 History prednisone 10 mg tablet See Taper PO DAILY 09/21/24 09/21/2425 History umeclidinium 62.5 mcg-vilanterol 1 ea inhalation DAILY 09/21/24 09/21/24 09/20/24 History 25 mcg/actuation powdr for inhalation (Anoro Ellipta) Exam Height,Weight and Vital Signs: Height 6 ft 1 in Weight 141.1 kg Last Vital Signs Temp 97.9 F 09/22/24 07:23 Pulse 118 H 09/22/24 07:24 Resp 18 09/22/24 07:24 BP 118/80 09/22/24 07:23 Pulse Ox 94 09/22/24 07:23 O2 Del Method Room Air 09/22/24 07:23 Pertinent Lab Results Pertinent Lab Results: Laboratory Tests 09/21/24 09/21/24 09/21/24 10:08 10:33 14:39 WBC 21.5 H RBC 4.64 Hgb 13.8 L Hct 41.1 L MCV 88.6 MCH 29.7 MCHC 33.6 RDW 13.5 Plt Count 322 MPV 10.0 Immature Gran % (Auto) Cancelled Neut % (Auto) Cancelled Lymph % (Auto) Cancelled Potter % (Auto) Cancelled Eos % (Auto) Cancelled Baso % (Auto) Cancelled Lymph # (Auto) Cancelled Potter # (Auto) Cancelled Eos # (Auto) Cancelled Baso # (Auto) Cancelled Abs Immat Gran (auto) Cancelled Absolute Neuts (auto) Cancelled Absolute Nucleated RBC 0.000 Nucleated RBC % (auto) 0.0 Neutrophils % (Manual) 78 H Band Neutrophils % 2 L Lymphocytes % (Manual) 14 L Atypical Lymphs % (Man) 1 Monocytes % (Manual) 3 Myelocytes % 2 Abs Neuts (Manual) 17.2 H Lymphocytes # (Manual) 3.0 Atyp Lymphs # (Manual) 0.2 Monocytes # (Manual) 0.6 Myelocytes # 0.4 Platelet Estimate NORMAL Plt Morphology Comment NORMAL RBC Morphology NORMAL PT 10.7 L INR 0.9 APTT 25.7 L Sodium 138 Potassium 4.2 Chloride 103 Carbon Dioxide 24 Anion Gap 15 BUN 21 H Creatinine 1.09 Estim Creat Clear Calc 110.8 Estimated GFR > 60 Random Glucose 170 H Calcium 9.6 D Magnesium 2.4 Total Bilirubin 0.3 Direct Bilirubin 0.1 AST 15 ALT 20 Alkaline Phosphatase 48 Troponin I High Sens 1058.3 H* D 1269.6 H* B-Natriuretic Peptide 347 H Total Protein 7.5 Albumin 4.2 TSH 1.61 Urine Color Yellow Urine Appearance Clear Urine pH 5.5 Ur Specific [place] 1.020 Urine Protein Negative Urine Glucose (UA) Negative Urine Ketones Trace Urine Blood Negative Urine Nitrite Negative Ur Leukocyte Esterase Negative Urine Opiates Screen Not Detected Ur Buprenorphine Scrn Not Detected Ur Oxycodone Screen Not Detected Urine Methadone Screen Not Detected Urine Fentanyl Screen Not Detected Ur Barbiturates Screen Not Detected Ur Phencyclidine Scrn Not Detected Ur Amphetamines Screen Not Detected U Benzodiazepines Scrn Not Detected Urine Cocaine Screen POSITIVE H U Marijuana (THC) Screen Not Detected Influenza Type A (PCR) NEGATIVE Influenza Type B (PCR) NEGATIVE RSV RNA Qual (PCR) NEGATIVE SARS-CoV-2 RNA (RT-PCR) NEGATIVE 09/22/24 10:29 WBC 19.1 H RBC 3.99 L Hgb 11.8 L Hct 36.4 L MCV 91.2 MCH 29.6 MCHC 32.4 RDW 13.7 Plt Count 252 MPV 10.2 Immature Gran % (Auto) Neut % (Auto) Lymph % (Auto) Potter % (Auto) Eos % (Auto) Baso % (Auto) Lymph # (Auto) Potter # (Auto) Eos # (Auto) Baso # (Auto) Abs Immat Gran (auto) Absolute Neuts (auto) Absolute Nucleated RBC 0.000 Nucleated RBC % (auto) 0.0 Neutrophils % (Manual) Band Neutrophils % Lymphocytes % (Manual) Atypical Lymphs % (Man) Monocytes % (Manual) Myelocytes % Abs Neuts (Manual) Lymphocytes # (Manual) Atyp Lymphs # (Manual) Monocytes # (Manual) Myelocytes # Platelet Estimate Plt Morphology Comment RBC Morphology PT INR APTT Sodium Potassium Chloride Carbon Dioxide Anion Gap BUN Creatinine Estim Creat Clear Calc Estimated GFR Random Glucose Calcium Magnesium Total Bilirubin Direct Bilirubin AST ALT Alkaline Phosphatase Troponin I High Sens B-Natriuretic Peptide Total Protein Albumin TSH Urine Color Urine Appearance Urine pH Ur Specific Gilbert Urine Protein Urine Glucose (UA) Urine Ketones Urine Blood Urine Nitrite Ur Leukocyte Esterase Urine Opiates Screen Ur Buprenorphine Scrn Ur Oxycodone Screen Urine Methadone Screen Urine Fentanyl Screen Ur Barbiturates Screen Ur Phencyclidine Scrn Ur Amphetamines Screen U Benzodiazepines Scrn Urine Cocaine Screen U Marijuana (THC) Screen Influenza Type A (PCR) Influenza Type B (PCR) RSV RNA Qual (PCR) SARS-CoV-2 RNA (RT-PCR) Airway Mallampati Class: III TM Dist: >3cm Neck ROM: Full Loose/Missing/Broken Teeth: No Heart: RRR Lungs: CTA Assessment and Plan Assessment Anesthesia Assessment: Anesthesia Plan Discussed and Chart Reviewed Final Anesthetic Review History of Problems with Anesthesia: No NPO: Yes ASA Class: III Final Preanesthetic Review: Meds/Allgs Chart Reviewed, Consent Obtained/Reviewed and Anes Risks/Benef Reviewed Patient Risk: Intermediate Procedure Risk: Intermediate Anesthetic Plan Anesthetic Plan: MAC: Disposition: Standard PACU
--- NOTE | 2024-09-22 14:14 | MHC.SHP ---
Pre-Procedural Eval Section A - 24 Hr Update-Section A only Date of Service: 09/22/24 The patient is an INPATIENT: Yes Section B - Complete if H&P > 30 days Chief Complaint: Afib Details of Present Illness: For MICHI cardioversion Allergies: Allergies Allergy/AdvReac Type Severity Reaction Status Date / Time bee stings Allergy Severe Anaphylaxis Verified 09/21/24 09:44 hydromorphone [From DILAUDID] AdvReac Severe VIOLENTLY Verified 09/21/24 09:44 ILL NEEDS TO EAT FIRST Plan Diagnosis/Plan: Unchanged I have reviewed the history and physical and performed a pertinent physical examination on my patient. No changes have occurred unless specified. Time Spent With Patient Time: Total time managing care of this patient today ____ minutes.
--- NOTE | 2024-09-22 15:14 | P.PNIM_ITS ---
Subjective Subjective Date of Service: 09/22/24 Interval History: afib with rvr,pneumonia Review of Systems denies any chest pain or sob Physical Exam 2 Vital Signs: Vital Signs: Last Vital Signs Temp 98.2 F 09/22/24 13:49 Pulse 132 H 09/22/24 13:49 Resp 18 09/22/24 13:49 BP 115/90 H 09/22/24 13:49 Pulse Ox 88 L 09/22/24 13:49 O2 Del Method Room Air 09/22/24 13:49 BMI result Body Mass Index 41.0 Appearance: Alert.? Oriented X3.? ? cvs: irregular rythem , [id number] . res: air entry fair ,has few scattered rhonchii abd: no rebound or guarding ,nt, bs present. ext pulses present , no cyanosis . neuro: axo3 , nonfocal. Objective Data Active Medications Acetaminophen (Acetaminophen 325 Mg Tablet) 650 mg PO Q6H PRN PRN Reason: Pain, Mild 1-3,fever,headache Acetaminophen (Acetaminophen 325 Mg Tablet) 650 mg PO ONCE PRN PRN Reason: Pain, Mild (Pain Scale 1-3) Stop: 09/22/24 19:52 Albuterol/Ipratropium (Albuterol/Iprat 2.5/0.5mg 3 Ml Ampul.Neb) 3 ml INHALE ONCE PRN PRN Reason: Bronchospasm/wheezing Stop: 09/22/24 19:52 Apixaban (Apixaban 5 Mg Tablet) 5 mg PO BID [facility] Last Admin: 09/22/24 09:05 Dose: 5 mg Documented By: CHHAYA Aripiprazole (Aripiprazole 15 Mg Tablet) 15 mg PO DAILY [facility] [place] Aspirin (Aspirin 81 Mg Tab.Chew) 81 mg PO DAILY [facility] [place] Last Admin: 09/22/24 09:02 Dose: 81 mg Documented By: CHHAYA Atorvastatin Calcium (Atorvastatin Calcium 40 Mg Tablet) 40 mg PO BEDTIME [facility] [place] Last Admin: 09/21/24 20:40 Dose: 40 mg Documented By: BERNICE Bupropion HCl (Bupropion Hcl Xl 150 Mg Tab.Er.24h) 150 mg PO DAILY [facility] [place] Calcium Carbonate (Calcium Carbonate 750 Mg Tab.Chew) 750 mg PO Q4H PRN PRN Reason: Heartburn Carisoprodol (Carisoprodol 350 Mg Tablet) 350 mg PO TID PRN PRN Reason: Muscle Spasm Ceftriaxone Sodium (Ceftriaxone Sodium 1 Gm Vial) 1 gm IVPUSH Q24H [facility] [place] Last Admin: 09/21/24 16:10 Dose: 1 gm Documented By: BERNICE Clonazepam (Clonazepam 1 Mg Tablet) 2 mg PO TID [facility] [place] Last Admin: 09/22/24 09:01 Dose: 2 mg Documented By: CHHAYA Cyanocobalamin (Cyanocobalamin (Vitamin B-12) 1,000 Mcg Tablet) 1,000 mcg PO DAILY [facility] [place] Fenofibrate (Fenofibrate 160 Mg Tablet) 160 mg PO DAILY [facility] [place] Last Admin: 09/22/24 09:01 Dose: 160 mg Documented By: CHHAYA Folic Acid (Folic Acid 1 Mg Tablet) 1 mg PO DAILY [facility] [place] Furosemide (Furosemide 40 Mg Tablet) 40 mg PO DAILY [facility] [place]; Protocol Last Admin: 09/22/24 09:04 Dose: 40 mg Documented By: CHHAYA Diltiazem HCl 125 mg/ Sodium (Chloride) 125 mls @ 0 mls/hr IVCONT .Q0M [facility] [place]; Protocol Last Admin: 09/22/24 08:18 Dose: 15 mg/hr, 15 mls/hr Documented By: CHHAYA Dextrose/Lactated Ringer's (D5lr) 1,000 mls @ 80 mls/hr IVCONT .[id number] ONE Stop: 09/22/24 17:35 Last Admin: 09/22/24 05:30 Dose: 80 mls/hr Documented By: MAX Indomethacin (Indomethacin 25 Mg Capsule) 50 mg PO BID [facility] [place] Last Admin: 09/21/24 20:44 Dose: Not Given Documented By: BERNICE Non-Admin Reason: Patient Refused Levalbuterol HCl (Levalbuterol Hcl 1.25 Mg/3 Ml Vial.Neb) 1.25 mg INHALE RTID [facility] [place] Last Admin: 09/22/24 14:04 Dose: Not Given Documented By: TOMI Non-Admin Reason: pt in or Magnesium Hydroxide (Milk Of Magnesia 30 Ml Oral.Susp) 30 ml PO DAILY PRN PRN Reason: Constipation Meclizine HCl (Meclizine Hcl 25 Mg Tablet) 25 mg PO BID PRN PRN Reason: dizziness Melatonin (Melatonin 3 Mg Tablet) 6 mg PO BEDTIME PRN PRN Reason: Insomnia Metoprolol Succinate (Metoprolol Succinate Er 50 Mg Tab.Er.24h) 50 mg PO BID [facility] [place]; Protocol Last Admin: 09/22/24 09:04 Dose: 50 mg Documented By: CHHAYA Naloxone HCl (Naloxone Hcl 0.4 Mg/Ml Vial) 0.04 mg IVPUSH Q5M PRN PRN Reason: Excessive sedation or RR < 8 Non-Formulary Medication (Umeclidinium-Vilanterol [Anoro Ellipta]) 1 each INHALE DAILY [facility] [place] Omeprazole (Omeprazole 20 Mg Capsule.) 20 mg PO DAILY@0630 [facility] [place] Last Admin: 09/22/24 06:39 Dose: 20 mg Documented By: MAX Prazosin HCl (Prazosin Hcl 1 Mg Capsule) 2 mg PO BID [facility] [place]; Protocol Last Admin: 09/21/24 20:40 Dose: 2 mg Documented By: BERNICE Prednisone (Prednisone 20 Mg Tablet) 40 mg PO DAILY [facility] [place] Last Admin: 09/22/24 09:01 Dose: 40 mg Documented By: CHHAYA Sodium Chloride (0.9 % Sodium Chloride Flush 3 Ml Syringe) 3 ml IVFLUSH QSHIFT [facility] [place] Last Admin: 09/22/24 09:07 Dose: Not Given Documented By: CHHAYA Non-Admin Reason: IV Running Vitamin D (Cholecalciferol (Vitamin D3) 25 Mcg Tablet) 50 mcg PO DAILY [facility] [place] Zolpidem Tartrate (Zolpidem Tartrate 5 Mg Tablet) 10 mg PO BEDTIME PRN PRN Reason: Insomnia Labs 09/22/24 10:29 09/21/24 10:08 Labs: Laboratory Results - last 24 hr 09/22/24 10:29 MCV 91.2 MCH 29.6 MCHC 32.4 RDW 13.7 Plt Count 252 MPV 10.2 Absolute Nucleated RBC 0.000 Nucleated RBC % (auto) 0.0 Assessment and Plan (1) Atrial fibrillation with rapid ventricular response: Status: Acute (2) Non-ST elevation [place] (NSTEMI): Status: Acute Assessment and Plan: 54 y/o M with substance abuse, hypertension, COPD, coronary disease based on coronary CTA (moderate disease) and diastolic dysfunction presenting with AFib with RVR. He is positive for cocaine. His high sensitivity troponin levels are 1058. EKGs showing AFib with RVR with lateral ST depressions. He is denying any chest discomfort shortness of breath . Afib with rvr and nstemi trops ? eleavted sec to afib and cocaine /demand trops in [id number] range . hr still flactuating from 110-140's on diltiazem drip ,recieved digoxin loading ,metoprolol 50 mg bid ,eliquis. s/p cardioversion -off diliazem drip ,ekg done qtc seems in 405ms range -added multaq. Pneumonia : no sob or cough leucocytosis is sec to steriod use . he says he is only taking po antibiotics from last 3 days. will switch him on ceftriaxone while inpatient. Cocaine positive: declined for addiction eval. strongly advised to abstain from cocaine use . Copd: not in excerebation complete prednisone taper . ongoing need for stay -afib with rvr ,need cardioversion ,on iv diltiazem. Quality Stroke Does the patient have a stroke diagnosis?: No VTE Prior VTE?: No VTE Risk Level:: Medical - moderate - high VTE Device Contraindication: N/A - Device Ordered VTE Drug Contraindication: N/A - Med Ordered
[2024-09-22] MEDS: cefTRIAXone sodium 1 GM VIAL IVPUSH (17:53)
[2024-09-22] MEDS: Dronedarone HCl 400 MG TABLET PO ×2 (17:53→20:16)
[2024-09-22] MEDS: Atorvastatin Calcium 40 MG TABLET PO (20:16)
[2024-09-22] MEDS: Indomethacin 25 MG CAPSULE 50 MG PO (20:16)
[2024-09-22] MEDS: Prazosin HCL 1 MG CAPSULE 2 MG PO (20:16)
--- NOTE | 2024-09-22 22:48 | HO.CARDIVERS ---
Cardioversion Procedure Note Cardioversion Date of Procedure: 09/22/24 Ordering Provider: Demian Hsu Performing Provider: Demian Hsu Indication for Procedure: Afib with RVR Performed with Transesophageal Echo: Yes MICHI findings (if MICHI Performed): No LA/JULIÁN thrombus. History: 54 male with Afib with RVR Consent: Verbal and Written consent was obtained from the patient before starting. The patient was made aware of the risk of stroke, failure to achieve sinus rhythm, arrhythmia, skin martinez. Procedure: After consent obtained, defib pads were attached and the patient was sedated by the anesthesia team. Once adequate sedation achieved, single synchronized shock of 200 J given which converted rhythm to sinus. Recommendations: c/w Kaleb. Will add Leoncioq.
[2024-09-23 03:52] VITALS: BP 99/60; PULSE 64; RESP 16; TEMP 36.4; O2SAT 95
[2024-09-23 07:13] VITALS: BP 108/67; PULSE 70; RESP 18; TEMP 37.2; O2SAT 96
[2024-09-23] MEDS: ARIPiprazole 15 MG TABLET PO (08:40)
[2024-09-23] MEDS: Indomethacin 25 MG CAPSULE 50 MG PO (08:40)
[2024-09-23] MEDS: Omeprazole 20 MG CAPSULE.DR PO (08:41)
[2024-09-23] MEDS: Fenofibrate 160 MG TABLET PO (08:41)
[2024-09-23] MEDS: Apixaban 5 MG TABLET PO (08:41)
[2024-09-23] MEDS: Aspirin 81 MG TAB.CHEW PO (08:41)
[2024-09-23] MEDS: predniSONE 20 MG TABLET 40 MG PO (08:41)
[2024-09-23] MEDS: Dronedarone HCl 400 MG TABLET PO (08:41)
[2024-09-23] MEDS: Prazosin HCL 1 MG CAPSULE 2 MG PO (08:41)
[2024-09-23] MEDS: Cholecalciferol (Vitamin D3) 25 MCG TABLET 50 MCG PO (08:41)
[2024-09-23] MEDS: Folic Acid 1 MG TABLET PO (08:42)
[2024-09-23] MEDS: Metoprolol Succinate ER 50 MG TAB.ER.24H PO (08:42)
[2024-09-23] MEDS: Cyanocobalamin (Vitamin B-12) 1,000 MCG TABLET 1000 MCG PO (08:42)
[2024-09-23] MEDS: Furosemide 40 MG TABLET PO (08:42)
[2024-09-23] MEDS: buPROPion HCl XL 150 MG TAB.ER.24H PO (08:42)
[2024-09-23] MEDS: carisoprodoL 350 MG TABLET PO (08:45)
[2024-09-23] MEDS: 0.9 % Sodium Chloride Flush 3 ML SYRINGE IVFLUSH (08:48)
--- NOTE | 2024-09-23 09:13 | HO.POSTANES ---
Post Anesthesia Evaluation Post Anesthesia Evaluation Date of Service: 09/23/24 Vital Signs: Vital Signs Temp Pulse Resp BP Pulse Ox O2 Del Method 09/23/24 07:13 98.9 F 70 18 108/67 96 Room Air 09/23/24 03:52 97.6 F 64 16 99/60 95 Room Air 09/22/24 23:40 97.4 F 64 16 100/54 L 95 Room Air Anesthesia: TIVA Mental Status: Awake Pain Control: Satisfactory Nausea/Vomiting: None Hydration: Adequate Anesthesia-Related Issues: No Anes. Related Issues
--- NOTE | 2024-09-23 10:27 | P.DS_ITS ---
DS: Providers Provider Date of Service: 09/23/24 Date of admission: 09/21/24 13:50 Date of discharge: 09/23/24 Primary care physician: Yulissa Keyes MD Consults: 09/21/24 11:56 Consult to Cardiology Stat Consulting Provider: [facility] [place] [facility] Reason for consultation: rapid afib, nstemi Has provider been notified: Yes 09/21/24 14:22 Consult to Cardiology Routine Consulting Provider: [facility] – [place] [facility] Reason for consultation: afib with rvr ,elevated troponins Attending physician on discharge: Norris Ochoa Discharging clinician: Norris Ochoa DS: Diagnosis Discharge Diagnosis (1) Atrial fibrillation with rapid ventricular response: Status: Acute (2) Non-ST elevation [place] (NSTEMI): Status: Acute DS: Summary Hospital Course Hospital Course: HPI :54 yom with pmhx COPD, former smoker, depression, HFpEF, HTN, HLD, GERD, pernicious anemia, stable CAD, morbid obesity, former ETOH use (weeks ago), former cocaine use, PTSD, who had recent admission to [facility] [place] for COPD exacerbation/multifocal pneumonia -came to ed ( sent from cardiolofy office- new onset rapid atrial fibrillation w/ HR 170s),has some dizziness yesterday,pain in his right anticubital fossa area that self-resolved. He was laying down at the time. Denies any chest pain or shortness of breath no abdominal pain or nausea vomiting. Also denies use of cocaine even though his urine cocaine test is positive. Has leukocytosis WBC of 21, bmp fine, tsh normal,troponins 1058. ekg -afib rvr @168 vent rate. cxr-seems fine. patient on dilitazem drip max,also received does of metoprolol,digoxin ,seen by cardiology rec to continue diltizem drip ,in addition added metopolol and dig oxin loading:hr is improivng now running 110-130 range. Hospital course: Patient came to the hospital because of elevated heart rate and some chest tightness: Patient had AFib: Started on IV medications for heart rate control with iv diltiazem ,digoxin load,metoprolol, but unfortunately heart rate was still elevated so required cardioversion, cardiology recommended to add Multaq 400 mg b.i.d. and continue uninterrupted eliquis . Above management discussed with the patient in detail length including strongly advised to abstain from substance use also.urine toxicology positive for cocaine. patient also had elevated troponin thought to in sec to demad insetting of afib and cocaine. Patient need to follow-up with cardiology outpatient, cardiology may arrange their own appointment. Of note patient was recently discharge for pneumonia: leucocytosis improving , denies any sob or cough: He said he has only 1 day supply of Ceftin left, completed azithromycin already. We will give 3 extra days of Ceftin supply since he started his antibiotic later after discharge. Please repeat chest imaging study in 3-4 weeks to see resolution of pneumonia.moniter cbc outpatient. plan: Multaq 400 mg p.o. b.i.d. Eliquis 5 mg p.o. b.i.d. uninterrupted. Ceftin 500 mg p.o. b.i.d.(patient took total 6 days so far-has 1 day supply at home and we added 3 more days supply upon discharge.) moniter cbc ,Please repeat chest imaging study in 3-4 weeks to see resolution of pneumonia. Patient was strongly advised to abstain from cocaine use. Patient declined to talk to Addiction. Above management discussed with the patient detail length he understand and in agreement with the above plan, time spent 40 minute. Time Attestation Total time managing care of this patient today: 40 mintues. Discharge Coordination Time (in mins): 40 min Quality: Safe Use of Opioids Does Pt have an Active Cancer Diagnosis on the Problem List?: No Quality: Stroke Does the patient have a stroke diagnosis?: No Physical Exam Vital Signs: Vital Signs: Last Vital Signs Temp 98.9 F 09/23/24 07:13 Pulse 70 09/23/24 07:13 Resp 18 09/23/24 07:13 BP 108/67 09/23/24 07:13 Pulse Ox 96 09/23/24 07:13 O2 Del Method Room Air 09/23/24 07:13 O2 Flow Rate 2 09/22/24 15:30 BMI result Body Mass Index 41.0 Appearance: Alert.? Oriented X3.? ? cvs: rrr , [id number] . res: air entry fair ,has few scattered rhonchii abd: no rebound or guarding ,nt, bs present. ext pulses present , no cyanosis . neuro: axo3 , nonfocal. DS: Data Data Completed and Pending Completed studies during hospitalization [Text1]: Procedures Insertion of Infusion Device into Upper Vein, Percutaneous Approach (08/25/21) Labs on day of discharge: Laboratory Results - last 24 hr 09/22/24 10:29 WBC 19.1 H RBC 3.99 L Hgb 11.8 L Hct 36.4 L MCV 91.2 MCH 29.6 MCHC 32.4 RDW 13.7 Plt Count 252 MPV 10.2 Absolute Nucleated RBC 0.000 Nucleated RBC % (auto) 0.0 Imaging Chest x-ray: Radiologist's impression: ITS Impressions Chest X-Ray 09/21/24 09:35 IMPRESSION: No active disease. No change. Electronically signed by: Ilia Wilson MD 09/21/2024 10:56 AM [facility] [place] Discharge Plan Discharge Anticipated Discharge Date/Time: 09/23/24 10:12 Patient Disposition: Home, Self-Care Discharge Diagnosis: afib with rvr ,elevated troponins Referrals: Yulissa Dempsey MD [Primary Care Provider] - 1 Week Discharge Medications: New Eliquis 5 mg Tablet 5 mg PO BID Qty: 180 0RF omeprazole 20 mg capsule,delayed release(DR/EC) 20 mg PO DAILY Qty: 90 0RF Multaq 400 mg Tablet 400 mg PO BID Qty: 180 0RF cefuroxime axetil 500 mg tablet 500 mg PO BID Qty: 6 0RF Continued (DME) Blood Pressure Cuff Misc See Rx Instructions .Route Qty: 1 0RF Rx Instructions: As directed (DME) Grab bar Misc See Rx Instructions .Route Qty: 1 0RF Rx Instructions: As directed (DME) Shower Chair Misc See Rx Instructions .Route Qty: 1 0RF Rx Instructions: As directed (DME) hand rails See Rx Instructions .Route .MEDSUPPLY Qty: 1 0RF Rx Instructions: As directed folic acid 1 mg tablet 1 mg PO DAILY Qty: 30 11RF albuterol sulfate [Ventolin HFA] 90 mcg/actuation HFA aerosol inhaler 2 puff inhalation Q4-6H PRN (Reason: shortness of breath or wheezing) Qty: 8.5 6RF meclizine 25 mg tablet 25 mg PO BID PRN (Reason: dizziness) 5 Days Qty: 10 0RF carisoprodol 350 mg tablet 350 mg PO TID PRN (Reason: Muscle Pain) 30 Days Qty: 90 0RF cholecalciferol (vitamin D3) 50 mcg (2,000 unit) tablet 50 mcg PO DAILY Qty: 90 0RF buspirone 10 mg tablet 10 mg PO TID hydroxyzine pamoate 25 mg capsule 25 mg PO BID PRN (Reason: Anxiety) oxcarbazepine 300 mg tablet 300 mg PO BID zolpidem 10 mg tablet 10 mg PO BEDTIME PRN (Reason: Insomnia) clonazepam 2 mg tablet 2 mg PO TID pantoprazole 40 mg tablet,delayed release (DR/EC) 40 mg PO DAILY@0630 furosemide 40 mg tablet 40 mg PO DAILY albuterol sulfate 2.5 mg /3 mL (0.083 %) solution for nebulization 2.5 mg inhalation TID PRN (Reason: Shortness Of Breath Or Wheezing) Anoro Ellipta 62.5-25 mcg/actuation blister with device 1 ea INHALATION DAILY prednisone 10 mg Tablet See Taper PO DAILY Taper: Prednisone 40 mg daily for 2 Days and 0 Hour 30 mg daily for 3 Days and 0 Hour 20 mg daily for 3 Days and 0 Hour 10 mg daily for 3 Days and 0 Hour cefuroxime axetil 500 mg Tablet 500 mg PO BID cyanocobalamin (vitamin B-12) 1,000 mcg tablet extended release 1,000 mcg PO DAILY 90 Days Qty: 90 3RF (DME) blood pressure monitor [Blood Pressure Kit] Kit See Rx Instructions .Route Qty: 1 0RF Rx Instructions: As directed oxcarbazepine 600 mg tablet 600 mg PO BID metoprolol succinate [Toprol XL] 50 mg tablet extended release 24 hr 50 mg PO DAILY 90 Days Qty: 90 3RF aripiprazole 15 mg tablet 15 mg PO DAILY bupropion HCl 150 mg tablet extended release 24 hr 150 mg PO DAILY amlodipine 10 mg tablet 10 mg PO DAILY Qty: 90 3RF atorvastatin 40 mg tablet 40 mg PO BEDTIME Qty: 30 5RF aspirin [Aspirin Childrens] 81 mg tablet,chewable 81 mg PO DAILY Qty: 30 5RF chlorthalidone 25 mg tablet 25 mg PO DAILY 90 Days Qty: 90 1RF fenofibrate 160 mg tablet 160 mg PO DAILY 90 Days Qty: 90 1RF lisinopril 40 mg tablet 40 mg PO DAILY Qty: 90 2RF prazosin 2 mg capsule 2 mg PO BID 90 Days Qty: 180 1RF Held indomethacin 50 mg capsule 50 mg PO BID 10 Days Qty: 20 1RF Hold Instructions: Resume on 10/10/24. Rx Instructions: administer with food or milk Discontinued azithromycin 500 mg Tablet 500 mg PO DAILY ibuprofen 800 mg tablet 800 mg PO Q8H 30 Days Qty: 90 3RF Discharge Orders: Discharge Order (Routine); Ordered 09/23/24 Ordered By: Norris Ochoa Diet: Advance to usual diet Activity on Discharge: As tolerated Stand Alone Forms: Patient Portal Discharge page Print Language: Maori Care Plan Goals: Patient came to the hospital because of elevated heart rate and some chest tightness: Patient had AFib: Started on IV medications for heart rate control, but unfortunately heart rate was still elevated so required cardioversion, cardiology recommended to add Multaq 400 mg b.i.d. and continue uninterrupted eliquis . Above management discussed with the patient in detail length including strongly advised to abstain from substance use also. Patient need to follow-up with cardiology outpatient, cardiology may arrange their own appointment. Of note patient was recently discharge for pneumonia: He said he has only 1 day supply of Ceftin left, completed azithromycin already. We will give 3 extra days of Ceftin supply since he started his antibiotic later after discharge. Please repeat chest imaging study in 3-4 weeks to see resolution of pneumonia. Health Concerns: As above. Plan of Treatment: Multaq 400 mg p.o. b.i.d. Eliquis 5 mg p.o. b.i.d. uninterrupted. Ceftin 500 mg p.o. b.i.d.(patient took total 6 days so far-has 1 day supply at home and we added 3 more days supply upon discharge.) moniter cbc ,Please repeat chest imaging study in 3-4 weeks to see resolution of pneumonia. Assessment: as above.
--- NOTE | 2024-09-23 10:41 | MHC.CM.PN ---
PT TO [facility] HOME TODAY, NO NEW SERVICES INDICATED SISTER TO TRANSPORT
== END 2024-09-23 11:13 | disposition home or self-care (01) | DRG 201 ==
LOC: HO.ED 11:57 → HO.EDOVER 13:51 → HO.IMC 13:56
PROVIDERS: Internal Medicine Cardiovascular Disease; Physician Assistant; Admitting Provider Internal Medicine; Emergency Provider Emergency Medicine; PCP Internal Medicine; Visit Provider Internal Medicine
PROC: 5A2204Z Restoration of Cardiac Rhythm, Single (ICD-10-PCS; CPT 93312; principal; 2024-09-22 14:00)
PROC: 5A2204Z Restoration of Cardiac Rhythm, Single (ICD-10-PCS; 2024-09-22 14:00)
DX: I48.91 Unspecified atrial fibrillation (principal); I21.A1 Myocardial infarction type 2; J18.9 Pneumonia, unspecified organism; E66.01 Morbid (severe) obesity due to excess calories; F14.90 Cocaine use, unspecified, uncomplicated; Z20.822 Contact with and (suspected) exposure to COVID-19; Z68.41 Body mass index [BMI] 40.0-44.9, adult; Z71.3 Dietary counseling and surveillance; Z79.82 Long term (current) use of aspirin; Z79.899 Other long term (current) drug therapy
CPT/HCPCS: 0241U; 36415; 71045; 80048; 80076; 80307; 81003; 83735; 83880; 84443; 84484; 85007; 85027; 85610; 85730; 92960; 93005; 94640; 99285; J0696; J1160; J3010; Q9957

== ENCOUNTER → 2024-09-21 09:52 | Outpatient (BNV) | payer OTHER, SELFPAY | PROVIDERS: Emergency Provider Emergency Medicine; PCP Internal Medicine; Visit Provider Internal Medicine Cardiovascular Disease | DX: I48.91 Unspecified atrial fibrillation (principal); I21.4 Non-ST elevation (NSTEMI) myocardial infarction | CPT/HCPCS: 92960; 99223; 99233 ==

== ENCOUNTER → 2024-09-21 09:53 | Outpatient (BNV) | payer OTHER, SELFPAY | PROVIDERS: Emergency Provider Emergency Medicine; PCP Internal Medicine; Visit Provider Radiology Diagnostic Radiology | DX: R06.02 Shortness of breath (principal); R42 Dizziness and giddiness | CPT/HCPCS: 71045 ==

== ENCOUNTER 2024-09-21 13:50 | Outpatient (BNV) | payer OTHER, SELFPAY | END 2024-09-22 07:00 | PROVIDERS: Admitting Provider Internal Medicine; Emergency Provider Emergency Medicine; PCP Internal Medicine; Visit Provider Internal Medicine Cardiovascular Disease | DX: I48.91 Unspecified atrial fibrillation (principal); R94.31 Abnormal electrocardiogram [ECG] [EKG] | CPT/HCPCS: 93010; 93312 ==

== ENCOUNTER → 2024-09-21 13:50 | Outpatient (BNV) | payer OTHER, SELFPAY | PROVIDERS: Admitting Provider Internal Medicine; Emergency Provider Emergency Medicine; PCP Internal Medicine; Visit Provider Internal Medicine | DX: I21.4 Non-ST elevation (NSTEMI) myocardial infarction (principal); I48.91 Unspecified atrial fibrillation | CPT/HCPCS: 99222 ==

== ENCOUNTER 2024-09-26 15:31 | Outpatient (AMB) | payer OTHER, SELFPAY ==
[2024-09-26 15:33] VITALS: BP 158/68; PULSE 100; O2SAT 96; BMI 41.2
--- NOTE | 2024-09-26 15:33 | MHC.OFFVIS ---
Vital Signs 09/26/24 15:33 Height 6 ft 1 in Weight 311 lb 15.265 oz BMI 41.2 BP 158/68 H Blood Pressure Location Rt brachial Position Sitting Pulse 100 Pulse Source Doppler Pulse Oximetry (%) 96 Oxygen Delivery Method Room Air Intake Visit Reasons: copd Allergies bee stings Allergy (Severe, Verified 09/26/24 15:35) Anaphylaxis hydromorphone [From DILAUDID] Adverse Reaction (Severe, Verified 09/26/24 15:35) VIOLENTLY ILL NEEDS TO EAT FIRST HPI HPI copd: Details: 54-year-old gentleman, recent 30+ pack-year smoker, followed for mild emphysema without fixed obstruction. Patient is also undergoing cardiac workup. After the last office visit patient was not able to get his Anoro again and now his symptoms are not as well controlled. He recently had cardioversion back to sinus rhythm with some improvement in his symptoms. [facility] Medical History (Updated 09/26/24 @ 16:02 by Varun Kim MD) Atherosclerotic cardiovascular disease Emphysema lung Personal history of nicotine dependence Tubular adenoma of colon Cocaine abuse Lactic acid acidosis Hypoxemia Opioid overdose COVID-19 COPD (chronic obstructive pulmonary disease) History of pneumonia Positive colorectal cancer screening using Cologuard test Gout Essential hypertension Lymphopenia Mixed hyperlipidemia Pernicious anemia Lumbar degenerative disc disease GERD (gastroesophageal reflux disease) Surgical History History of colonoscopy History of esophagogastroduodenoscopy (EGD) History of surgery Status post surgical removal of malignant neoplasm of skin History of shoulder surgery History of arthroscopy of left knee History of total left knee replacement Family History Father Lung cancer Mother Chronic mental illness Alzheimer disease Maternal Grandmother Bone cancer Hypertension Paternal Grandmother Brain cancer Maternal Uncle Cancer Family/Other Chronic mental illness Substance use disorder Social History Household Members: Family Household Members Other:: 2 room mates Housing: House Alcohol intake: former Comment: refsued, wants to be indep Patient Tobacco Use Status: Former Tobacco user Tobacco use type: Cigarette Cigarettes Per Day: 10 e-Cigarette/Vaping Use: Never Used Second Hand Smoke Exposure: No Substance Use Type: Crack/Cocaine service: Yes Current occupational status: unemployed and disabled Cognitive needs: No Hearing needs: No Vision needs: Yes Review of Systems Card Reports dyspnea, Reports dyspnea on exertion and Reports orthopnea Resp Denies cough, Denies excessive phlegm production, Reports dyspnea and Reports dyspnea on exertion Physical Exam Vital Signs: Last Vital Signs Pulse 100 09/26/24 15:33 BP 158/68 H 09/26/24 15:33 Pulse Ox 96 09/26/24 15:33 Oxygen Delivery Method Room Air 09/26/24 15:33 BMI result Body Mass Index 41.2 Const General: no acute distress, alert and awake Nutritional Appearance: obese Eyes Sclerae: sclerae normal EOM: EOMs intact bilaterally Neck Neck: Yes no lymphadenopathy, Yes trachea midline and Yes supple Resp Effort & Inspection: normal respiratory effort and no respiratory distress Auscultation: clear to auscultation bilaterally Cardio Rate: regular rate Rhythm: regular rhythm Heart sounds: no gallops, no murmurs and no rubs GI Palpation (GI): Soft to palpation and Other GI palpation findings present ( Nontender) Auscultation: normal bowel sounds Extrem General: Yes no pedal edema, No clubbing and No cyanosis Assessment & Plan Assessment & Plan (1) COPD (chronic obstructive pulmonary disease): Code(s): J44.9 - Chronic obstructive pulmonary disease, unspecified Category: Medical Plan: Suboptimal control as patient was not able to receive his Anoro. Restart Anoro. Continue albuterol MDI/nebs. (2) Personal history of nicotine dependence: Comment: (30+PYH - in LDCT program since 2023) Code(s): Z87.891 - Personal history of nicotine dependence Category: Medical Plan: Results of lung cancer screening CT chest reviewed, no worrisome nodules, continue with yearly screening, next in November of 2024, ordered. Orders: Orders CT lung screening 11/24/24 Z87.891 - Personal history of nicotine dependence Medications: New umeclidinium-vilanterol 62.5-25 mcg/actuation (Anoro Ellipta) 1 ea inhalation DAILY 1 ea 6RF Coding Level of Care Code Est Pt Level 4 (15549) Diagnoses COPD (chronic obstructive pulmonary disease) J44.9 Personal history of nicotine dependence Z87.891
== END 2024-09-26 16:00 | disposition home or self-care (01) ==
PROVIDERS: PCP Internal Medicine; Visit Provider Internal Medicine Pulmonary Disease
DX: J44.9 Chronic obstructive pulmonary disease, unspecified (principal); Z87.891 Personal history of nicotine dependence
CPT/HCPCS: 99214

== ENCOUNTER → 2024-09-26 15:31 | Outpatient (BNVA) | payer OTHER, SELFPAY | PROVIDERS: PCP Internal Medicine; Visit Provider Internal Medicine Pulmonary Disease | DX: J44.9 Chronic obstructive pulmonary disease, unspecified (principal); Z87.891 Personal history of nicotine dependence | CPT/HCPCS: 99212 ==

== ENCOUNTER 2024-10-16 08:27 | Outpatient (REF) | payer OTHER, SELFPAY | END 2024-10-16 08:28 | disposition home or self-care (01) | LOC: HO.HOSX 08:27 | PROVIDERS: Visit Provider Physician Assistant | DX: Z13.89 Encounter for screening for other disorder (principal) ==

== ENCOUNTER 2024-12-18 14:18 | Observation (INO) | payer OTHER, SELFPAY ==
[2024-12-18] VITALS (7 sets, daily range): BP systolic 111–178; BP diastolic 81–96; PULSE 82–112; RESP 14–24; TEMP 36.3–36.4; O2SAT 96–98; BMI 39.1
--- NOTE | ~2024-12-18 | XR_ITS ---
EXAMINATION: XR CHEST CLINICAL INFORMATION: Chest pain COMPARISON: September 21, 2024. TECHNIQUE: Frontal view of the chest was obtained. FINDINGS: No hyperinflation. No gross consolidation pleural effusion or pneumothorax. Cardiomediastinal silhouette size is normal. Inadequate evaluation of the axial skeleton due to patient's body habitus. No free air beneath the diaphragm. XR/XR chest 1V IMPRESSION: No acute airspace disease. Stable chest. Electronically signed by: Clarence King MD 12/18/2024 03:20 PM EDT
--- NOTE | 2024-12-18 14:19 | ECG_ITS ---
Test Reason : CHEST PAIN Blood Pressure : */* mmHG Vent. Rate : 104 BPM Atrial Rate : 104 BPM P-R Int : 138 ms QRS Dur : 98 ms QT Int : 340 ms P-R-T Axes : 47 -26 110 degrees QTcB Int : 447 ms Sinus tachycardia Left ventricular hypertrophy with repolarization abnormality ( Michael product ) Abnormal ECG When compared with ECG of 22-Sep-2024 17:17, Vent. rate has increased by 37 bpm T wave inversion less evident in Lateral leads Referred By: Generic ED Physician Electronically Signed By: STANFORD ERICKSON
--- NOTE | 2024-12-18 14:34 | ED_ITS ---
HPI - Chest Pain General Chief Complaint: Chest Pain Stated Complaint: chest pain Time Seen by Provider: 12/18/24 14:42 History of Present Illness HPI narrative: Patient is a 54-year-old male with a history of NSTEMI in the past. Presents today with having chest pain going to the arm starting at approximately 10:00 this morning. There is no specific trigger he claims associated with shortness of breath there is no diaphoresis denies using any cocaine recently has a history of atrial fibrillation is currently on Eliquis. There is no fever no chills. There is no coughing or congestion. Positive history of hypertension. No history of high cholesterol. No history family history. Positive history of recreational drug use last used cocaine was a few months ago. Patient claims the pain improved by itself to 1 PM then got bad again. Related Data Home Medications ?Medication ?Instructions ?Recorded ?Confirmed oxcarbazepine 600 mg tablet 600 mg PO BID 09/10/20 09/21/24 buspirone 10 mg tablet 10 mg PO TID 10/06/23 09/21/24 clonazepam 2 mg tablet 2 mg PO TID 10/06/23 09/21/24 hydroxyzine pamoate 25 mg capsule 25 mg PO BID PRN Anxiety 10/06/23 09/21/24 oxcarbazepine 300 mg tablet 300 mg PO BID 10/06/23 09/21/24 zolpidem 10 mg tablet 10 mg PO BEDTIME PRN Insomnia 10/06/23 09/21/24 aripiprazole 15 mg tablet 15 mg PO DAILY 06/02/24 09/21/24 bupropion HCl 150 mg 24 hr tablet, 150 mg PO DAILY 06/02/24 09/21/24 extended release furosemide 40 mg tablet 40 mg PO DAILY 09/09/24 09/21/24 cefuroxime axetil 500 mg tablet 500 mg PO BID 09/21/24 09/21/24 Previous Rx's ?Medication ?Instructions ?Recorded Grab bar #1 ea 06/24/22 miscellaneous medical supply #1 ea 06/24/22 (Blood Pressure Cuff) blood pressure monitor (Blood #1 ea 08/06/22 Pressure Kit) cyanocobalamin (vitamin B-12) 1,000 mcg PO DAILY 90 days #90 tabs 08/06/22 1,000 mcg tablet,extended release Shower Chair #1 ea 06/29/23 hand rails #1 ea 06/29/23 folic acid 1 mg tablet 1 mg PO DAILY #30 tabs 06/30/23 indomethacin 50 mg capsule 50 mg PO BID 10 days #20 caps 09/29/23 metoprolol succinate 50 mg 50 mg PO DAILY 90 days #90 tabs 12/06/23 tablet,extended release 24 hr (Toprol XL) albuterol sulfate 90 mcg/actuation 2 puff inhalation Q4-6H PRN 12/13/23 aerosol inhaler (Ventolin HFA) shortness of breath or wheezing #8.5 grams carisoprodol 350 mg tablet 350 mg PO TID PRN Muscle Pain 30 04/18/24 days #90 tabs amlodipine 10 mg tablet 10 mg PO DAILY #90 tabs 08/21/24 aspirin 81 mg chewable tablet 81 mg PO DAILY #30 tabs 08/21/24 (Aspirin Childrens) atorvastatin 40 mg tablet 40 mg PO BEDTIME #30 tabs 08/21/24 chlorthalidone 25 mg tablet 25 mg PO DAILY 90 days #90 tabs 08/21/24 fenofibrate 160 mg tablet 160 mg PO DAILY 90 days #90 tabs 08/21/24 lisinopril 40 mg tablet 40 mg PO DAILY #90 tabs 08/21/24 prazosin 2 mg capsule 2 mg PO BID 90 days #180 caps 08/21/24 cholecalciferol (vitamin D3) 50 50 mcg PO DAILY #90 tabs 09/03/24 mcg (2,000 unit) tablet apixaban 5 mg tablet (Eliquis) 5 mg PO BID #180 tabs 09/23/24 cefuroxime axetil 500 mg tablet 500 mg PO BID #6 tabs 09/23/24 dronedarone 400 mg tablet (Multaq) 400 mg PO BID #180 tabs 09/23/24 omeprazole 20 mg capsule,delayed 20 mg PO DAILY #90 caps 09/23/24 release umeclidinium 62.5 mcg-vilanterol 1 ea inhalation DAILY #1 ea 09/26/24 25 mcg/actuation powdr for inhalation (Anoro Ellipta) albuterol sulfate 2.5 mg/3 mL 2.5 mg (3 mL) inhalation TID PRN 11/17/24 (0.083 %) solution for nebulization Shortness Of Breath Or Wheezing #225 mL meclizine 25 mg tablet 25 mg PO BID PRN dizziness 5 days 11/17/24 #10 tabs pantoprazole 40 mg tablet,delayed 40 mg PO DAILY@0630 #90 tabs 11/26/24 release Allergies Allergy/AdvReac Type Severity Reaction Status Date / Time bee stings Allergy Severe Anaphylaxis Verified 12/18/24 14:31 Review of Systems 2 Review of Systems: Positive chest pain Yes all other systems are reviewed and are negative [facility] Past Medical History Attestation statement: The following information was validated with the patient. Medical History Atherosclerotic cardiovascular disease Emphysema lung Personal history of nicotine dependence Tubular adenoma of colon Cocaine abuse Lactic acid acidosis Hypoxemia Opioid overdose COVID-19 COPD (chronic obstructive pulmonary disease) History of pneumonia Positive colorectal cancer screening using Cologuard test Gout Essential hypertension Lymphopenia Mixed hyperlipidemia Pernicious anemia Lumbar degenerative disc disease GERD (gastroesophageal reflux disease) Surgical History History of colonoscopy History of esophagogastroduodenoscopy (EGD) History of surgery Status post surgical removal of malignant neoplasm of skin History of shoulder surgery History of arthroscopy of left knee History of total left knee replacement Family History Family History Father Lung cancer Mother Chronic mental illness Alzheimer disease Maternal Grandmother Bone cancer Hypertension Paternal Grandmother Brain cancer Maternal Uncle Cancer Family/Other Chronic mental illness Substance use disorder Social History Social History Household Members: Family Household Members Other:: 2 room mates Housing: House Alcohol intake: former Comment: refsued, wants to be indep Patient Tobacco Use Status: Former Tobacco user Tobacco use type: Cigarette Cigarettes Per Day: 10 e-Cigarette/Vaping Use: Never Used Second Hand Smoke Exposure: No Substance Use Type: Crack/Cocaine Advance Directives: No Advance Directives Information Provided: No Do you have a plan to hurt others: No Plan service: Yes Current occupational status: unemployed and disabled Cognitive needs: No Hearing needs: No Vision needs: Yes Physical Exam 2 Vital Signs: Vital Signs: Last Vital Signs Temp 97.3 F 12/18/24 14:27 Pulse 103 H 12/18/24 14:44 Resp 24 H 12/18/24 14:44 BP 158/87 H 12/18/24 14:44 Pulse Ox 96 12/18/24 14:44 O2 Del Method Room Air 12/18/24 14:44 BMI result Body Mass Index 39.1 Appearance: Alert. Oriented X3. No acute distress. Eyes: Pupils equal, round and reactive to light. ENT: Pharynx normal. Neck: Normal inspection. Neck supple. No lymph nodes noted. No crepitus CVS: Normal heart rate and rhythm. Pulses normal. Normal S1 and S2 Respiratory: No respiratory distress. Breath sounds normal. No Wheezing. No rales Abdomen: Soft and nontender. No rigidity. No distention. good BS x4 Skin: Skin warm and dry. Normal skin color. Normal skin turgor. Extremities: No lower extremity edema. Neurovascular intact to all extremities. No Lacerations. No Rash Neuro: Oriented X 3. No motor deficit. No sensory deficit. Moving all extermities. No slurred speech Course Course Course Narrative: RME: 54-year-old male presents to ED for chest pain for the past several days going down left arm. Patient's auscultate shortness of breath. 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 Patient has seems in distress. Patient is brought back to the ED immediately EKG shows sinus tach. Medical Decision Making Lab Data 12/18/24 14:52 12/18/24 14:52 Labs: Lab Results 12/18/24 Range/Units 14:52 PT 12.0 (10.9-12.4) SEC INR 1.0 (0.9-1.1) APTT 31.2 D (26.0-36.8) SEC Sodium 140 (135-145) mmol/L Potassium 3.7 (3.3-5.1) mmol/L Chloride 102 (96-108) mmol/L Carbon Dioxide 27 (22-29) mmol/L Anion Gap 15 (12-20) BUN 19 H (9-16) mg/dL Creatinine 1.09 (0.5-1.4) mg/dL Estim Creat Clear Calc 113.3 Estimated GFR > 60 Random Glucose 180 H (60-115) mg/dL Calcium 9.9 (8.4-10.2) mg/dL Total Bilirubin 0.5 (0.0-1.0) mg/dL AST 32 (5-37) U/L ALT 54 H (0-40) U/L Troponin I High Sens 7.5 D (<3.5-35.0) ng/L B-Natriuretic Peptide 14 (<100) pg/mL Total Protein 7.6 (6.5-8.0) g/dL Albumin 4.6 (3.5-5.0) g/dL Discharge Plan Discharge Prescriptions: No Action (DME) Blood Pressure Cuff Misc See Rx Instructions .Route Qty: 1 0RF Rx Instructions: As directed (DME) Grab bar Misc See Rx Instructions .Route Qty: 1 0RF Rx Instructions: As directed (DME) Shower Chair Misc See Rx Instructions .Route Qty: 1 0RF Rx Instructions: As directed (DME) hand rails See Rx Instructions .Route .MEDSUPPLY Qty: 1 0RF Rx Instructions: As directed folic acid 1 mg tablet 1 mg PO DAILY Qty: 30 11RF indomethacin 50 mg capsule 50 mg PO BID 10 Days Qty: 20 1RF Rx Instructions: administer with food or milk albuterol sulfate [Ventolin HFA] 90 mcg/actuation HFA aerosol inhaler 2 puff inhalation Q4-6H PRN (Reason: shortness of breath or wheezing) Qty: 8.5 6RF carisoprodol 350 mg tablet 350 mg PO TID PRN (Reason: Muscle Pain) 30 Days Qty: 90 0RF cholecalciferol (vitamin D3) 50 mcg (2,000 unit) tablet 50 mcg PO DAILY Qty: 90 0RF albuterol sulfate 2.5 mg /3 mL (0.083 %) solution for nebulization 2.5 mg inhalation TID PRN (Reason: Shortness Of Breath Or Wheezing) Qty: 225 3RF meclizine 25 mg tablet 25 mg PO BID PRN (Reason: dizziness) 5 Days Qty: 10 0RF pantoprazole 40 mg tablet,delayed release (DR/EC) 40 mg PO DAILY@0630 Qty: 90 0RF buspirone 10 mg tablet 10 mg PO TID hydroxyzine pamoate 25 mg capsule 25 mg PO BID PRN (Reason: Anxiety) oxcarbazepine 300 mg tablet 300 mg PO BID zolpidem 10 mg tablet 10 mg PO BEDTIME PRN (Reason: Insomnia) clonazepam 2 mg tablet 2 mg PO TID furosemide 40 mg tablet 40 mg PO DAILY cefuroxime axetil 500 mg Tablet 500 mg PO BID Eliquis 5 mg Tablet 5 mg PO BID Qty: 180 0RF omeprazole 20 mg capsule,delayed release(DR/EC) 20 mg PO DAILY Qty: 90 0RF Multaq 400 mg Tablet 400 mg PO BID Qty: 180 0RF cefuroxime axetil 500 mg tablet 500 mg PO BID Qty: 6 0RF cyanocobalamin (vitamin B-12) 1,000 mcg tablet extended release 1,000 mcg PO DAILY 90 Days Qty: 90 3RF (DME) blood pressure monitor [Blood Pressure Kit] Kit See Rx Instructions .Route Qty: 1 0RF Rx Instructions: As directed oxcarbazepine 600 mg tablet 600 mg PO BID metoprolol succinate [Toprol XL] 50 mg tablet extended release 24 hr 50 mg PO DAILY 90 Days Qty: 90 3RF Anoro Ellipta 62.5-25 mcg/actuation blister with device 1 ea INHALATION DAILY Qty: 1 6RF aripiprazole 15 mg tablet 15 mg PO DAILY bupropion HCl 150 mg tablet extended release 24 hr 150 mg PO DAILY amlodipine 10 mg tablet 10 mg PO DAILY Qty: 90 3RF atorvastatin 40 mg tablet 40 mg PO BEDTIME Qty: 30 5RF aspirin [Aspirin Childrens] 81 mg tablet,chewable 81 mg PO DAILY Qty: 30 5RF chlorthalidone 25 mg tablet 25 mg PO DAILY 90 Days Qty: 90 1RF fenofibrate 160 mg tablet 160 mg PO DAILY 90 Days Qty: 90 1RF lisinopril 40 mg tablet 40 mg PO DAILY Qty: 90 2RF prazosin 2 mg capsule 2 mg PO BID 90 Days Qty: 180 1RF Print Language: Wallisian
--- NOTE | 2024-12-18 14:39 | PC.NURSE ---
pt pale, diaphoretic, SOB and c/o chest pain in triage. cardiac hx sig. for heart attack, pt also reports hx blood clot in R arm. brought back to ED 17
[2024-12-18 14:58] LABS: MANUAL DIFF FLAG NO
--- NOTE | 2024-12-18 15:04 | PC.NURSE ---
PT states he has PTSD and to not startle him if sleeping. please call out his name to wake him first.
[2024-12-18 15:09] LABS: Partial Thromboplastin Time 31.2 SEC (26.0-36.8)
[2024-12-18 15:15] LABS: Basophils Absolute Auto 0.1 X10*3/uL (0.0-0.2); Basophils Percent Auto 0.6 % (0-2); Eosinophils Absolute Auto 0.2 X10*3/uL (0.0-0.4); Eosinophils Percent Auto 1.6 % (0-4); Hematocrit 44.5 % (42.0-52.0); Hemoglobin 15.1 g/dl (14.0-18.0); Imm Gran Abs Auto 0.17 X10*3/uL (0.00-0.03); Imm Gran Pct Auto 1.4 % (0.0-0.4); Lymphocytes Absolute Auto 2.7 X10*3/uL (1.2-4.9); Lymphocytes Percent Auto 21.6 % (20-40); Mean Corpuscular HGB Conc 33.9 g/dl (31.0-36.0); Mean Corpuscular Volume 88.5 fL (80.0-98.0); Mean Platelet Volume 10.7 fL (9.4-12.4); Monocytes Absolute Auto 0.6 X10*3/uL (0.1-1.2); Monocytes Percent Auto 4.9 % (2-11); Neutrophils Absolute Auto 8.6 x10*3/uL (2.0-8.3); Neutrophils Percent Auto 69.9 % (45-73); Platelet Count 327 X10*3/uL (160-400); Red Blood Count 5.03 X10*6/uL (4.60-5.80); Red Cell Distribution Width 13.7 % (11.0-16.0); White Blood Count 12.3 X10*3/uL (4.8-10.8)
[2024-12-18 15:19] LABS: B Type Natriuretic Peptide 14 pg/mL (<100)
[2024-12-18 15:20] LABS: Troponin-I High Sensitivity 7.5 ng/L (<3.5-35.0)
[2024-12-18 15:27] LABS: Alanine Aminotransferase 54 U/L (0-40); Albumin Level 4.6 g/dL (3.5-5.0); Anion Gap 15 (12-20); Aspartate Amino Transferase 32 U/L (5-37); Bilirubin Total 0.5 mg/dL (0.0-1.0); Blood Urea Nitrogen 19 mg/dL (9-16); Calcium 9.9 mg/dL (8.4-10.2); Carbon Dioxide 27 mmol/L (22-29); Chloride 102 mmol/L (96-108); Creatinine Clr Calc Pharmacy 113.3; Estimated Glomerular Filt Rate > 60; Glucose Random 180 mg/dL (60-115); Potassium 3.7 mmol/L (3.3-5.1); Sodium 140 mmol/L (135-145); Total Protein 7.6 g/dL (6.5-8.0)
[2024-12-18 16:07] LABS: Alkaline Phosphatase 47 U/L (39-117)
--- OUTSIDE RECORDS SUMMARY | 2024-12-18 17:01 | XMS_ITS | Clinical Summary ---
Author Organization [facility] Address [address] [place] [address] Care Team Providers Care Mutuel Clerk Name Role Phone Pcp, No Primary Care Provider Unavailabl e Allergies Active Allergy Reactions Criticality Noted Date Comments Bee Venom Anaphylaxis High 01/04/2024 Social History Tobacco Use Types Packs/Day Years Used Date Smoking Tobacco: Never Assessed Sex and Gender Information Value Date Recorded Sex Assigned at Male 01/04/2024 7:53 AM EDT Legal Sex Male 6:26 PM EST Gender Identity Male 01/04/2024 7:53 AM EDT [...] Done Comments Hepatitis C Virus Screening 1969 HIV Screening 1982 DTaP/Tdap/Td Vaccines (1 - Tdap) 1988 Hepatitis B Vaccines (1 of 3 - 19+ 3-dose series) 04/18 Colonoscopy 2014 Pneumococcal Vaccines 50+ (1 of 1 - PCV) 2019 Zoster (Shingles) Vaccine (1 of 2) 2019 COVID-19 Vaccine (1 - season) 2024 Influenza Vaccine 03/16/[address] [place] OF [place] [facility] [place] [id number] Care Teams Mutuel Clerk Relationship Specialty Start Date End Date Pcp, No PCP - General General Medicine 12/06/23
--- OUTSIDE RECORDS SUMMARY | 2024-12-18 17:01 | XMS_ITS | Clinical Summary ---
Author Organization [facility] Address [address] [place] [address] Care Team Providers Care Gis Software Developer Name Role Phone Yulissa Keyes MD Primary Care Provider [phone] Social History Tobacco Use Types Packs/Day Years Used Date Smoking Tobacco: Never Assessed Sex and Gender Information Value Date Recorded Sex Assigned at Not on file Legal Sex Male 2:01 AM EST Gender Identity Not on file Sexual Orientation Not on file Plan of Treatment Health Maintenance Due Date Last Done Comments DTaP,Tdap,and Td Vaccines (1 - Tdap) 1988 Hepatitis B Vaccines (1 of 3 - 19+ 3-dose series) 1988 Pneumococcal Vaccine: 50+ Ye ars (1 of 1 - PCV) 2019 Zoster Vaccines (1 of 2) 2019 COVID-19 Vaccine (2023-2 5 season) 2024 Influenza Vaccine (Season Ended) 2025 HIB Vaccines Aged Out No longer eligi [...] patient's age to complete this topic Meningococcal B Vaccine Aged Out No l onger eligible based on patient's age to complete [...] age to complete this topic Care Teams Gis Software Developer Relationship Specialty Start Date End Date Yulissa Keyes MD [address] [place] [address] , [address] [facility] OBEY Garcia PCP - General Internal Medicine 08/04/17
--- OUTSIDE RECORDS SUMMARY | 2024-12-18 17:01 | XMS_ITS | Encounter Summary ---
Author Organization [facility] Address [address] [place] [address] Care Team Providers Care Correctional Sergeant Name Role Phone Pcp, No Primary Care Provider Unavailabl e Encounter Details Date Type Department Care Team (Late st Contact Info) Description 10/15/2023 Scanned Document [facility] [address] [facility] [address] [place] [id number] Radiology, Scan Social History Tobacco Use [...] encounter Results * HX OUTSIDE ORDER (10/15/2023) us Scan Radiology HX AMB PROCEDURES Final Result documented in this encounter Visit Diagnoses Not on filedocumented in this encounter Care Teams Correctional Sergeant Relationship Specialty Start Date End Date Pcp, No PCP - General General Medicine 12/06/23 documented as of this encounter
--- NOTE | 2024-12-18 18:35 | PC.NURSE ---
patient requesting neb treatment for COPD and shortness of breath. Saturations 97% on RA and RR 21 neb given
[2024-12-18] MEDS: Albuterol/Iprat 2.5/0.5MG 3 ML AMPUL.NEB INHALE (18:46)
[2024-12-18 18:51] LABS: Troponin-I High Sensitivity 7.1 ng/L (<3.5-35.0)
[2024-12-18] MEDS: Aspirin 81 MG TAB.CHEW 324 MG PO (19:34)
[2024-12-18] MEDS: Morphine Sulfate 2 MG/ML CARTRIDGE IVPUSH (19:35)
[2024-12-18] MEDS: HYDROmorphone HCl 0.5 MG/0.5 ML SYRINGE IVPUSH (21:03)
--- NOTE | 2024-12-18 22:10 | P.HPHOSP_ITS ---
History of Present Illness Date of Service: 12/18/24 Attending physician on admission: Nataliia Davis Chief Complaint: chest pain Patient is a 54-year-old male with a past medical history significant for COPD, former smoker, depression, HFpEF, HTN, HLD, GERD, pernicious anemia, stable CAD, morbid obesity, former EtOH use, former cocaine use, PTSD, history NSTEMI, history AFib s/p cardioversion 09/2024 on Eliquis, who presented to the ED due to chest pain radiating to the left arm starting around 10:00 this morning. The patient reported it was constant and lasted for a few hours. He has been having chest pain for the past few days but this morning was the worst. He reports that the pain starts at rest without exertion. He also reports that he has COPD and was told he should be on oxygen but has not been able to get this. He describes chronic shortness of breath but denies any nausea or worsening shortness of breath from his baseline. He was pale and diaphoretic and triage with improvement during his ED stay. His chest pain was reproductive with touch however is non-existent at this time. Review of Systems 2 Constitutional: Constitutional: Denies body ache(s), Denies chills, Denies fatigue, Denies fever(s) and Denies headache(s) Eyes: Eyes: Denies change in vision and Denies photophobia ENT: Denies headache(s), Denies nasal congestion, Denies nasal discharge and Denies sore throat Cardiovascular: Cardiovascular: Reports as per HPI, Denies rapid heart rate, Denies leg edema, Denies lightheadedness and Reports dyspnea (chronic) Respiratory: Respiratory: Denies chest congestion, Denies cough, Reports dyspnea (chronic) and Denies wheezing Gastrointestinal: Gastrointestinal: Denies abdominal pain, Denies diarrhea, Denies nausea and Denies vomiting Genitourinary: Genitourinary: Denies dysuria and Denies urinary urgency Musculoskeletal: Musculoskeletal: Denies back pain and Denies myalgias Integumentary/Breasts: Skin/Breast: Denies rash Neurologic: Denies confusion and Denies headache(s) Psychiatric: Psychiatric: Denies confusion Endocrine: Endocrine: Denies fatigue Hematologic/Lymphatic: Hematologic/Lymphatic: Denies easy bleeding and Denies easy bruising Allergic/Immunologic: Allergic/Immunologic: Denies wheezing PMFSH Medical History Atherosclerotic cardiovascular disease Emphysema lung Personal history of nicotine dependence Tubular adenoma of colon Cocaine abuse Lactic acid acidosis Hypoxemia Opioid overdose COVID-19 COPD (chronic obstructive pulmonary disease) History of pneumonia Positive colorectal cancer screening using Cologuard test Gout Essential hypertension Lymphopenia Mixed hyperlipidemia Pernicious anemia Lumbar degenerative disc disease GERD (gastroesophageal reflux disease) Functional capacity: independent ambulation Family History Father Lung cancer Mother Chronic mental illness Alzheimer disease Maternal Grandmother Bone cancer Hypertension Paternal Grandmother Brain cancer Maternal Uncle Cancer Family/Other Chronic mental illness Substance use disorder Surgical History History of colonoscopy History of esophagogastroduodenoscopy (EGD) History of surgery Status post surgical removal of malignant neoplasm of skin History of shoulder surgery History of arthroscopy of left knee History of total left knee replacement Social History Household Members: Family Household Members Other:: 2 room mates Housing: House Alcohol intake: former Comment: refsued, wants to be indep Patient Tobacco Use Status: Former Tobacco user Tobacco use type: Cigarette Cigarettes Per Day: 10 Smoked in Last 30 Days: No e-Cigarette/Vaping Use: Never Used Second Hand Smoke Exposure: No Use of substances other than those prescribed or required for medical reasons: No Substance Use Type: Crack/Cocaine Advance Directives: No Advance Directives Information Provided: No Do you have a plan to hurt others: No Plan Nutrition Risks: No Nutritional Risk service: Yes Current occupational status: unemployed and disabled Cognitive needs: No Hearing needs: No Vision needs: Yes Narrative: Former smoker and former alcohol use, none currently Meds Allergies Allergy/AdvReac Type Severity Reaction Status Date / Time bee stings Allergy Severe Anaphylaxis Verified 12/18/24 14:31 Active Medications: Current Medications Acetaminophen (Acetaminophen 325 Mg Tablet) 975 mg PO Q6H PRN PRN Reason: Pain, Mild 1-3,fever,headache Albuterol/Ipratropium (Albuterol/Iprat 2.5/0.5mg 3 Ml Ampul.Neb) 3 ml INHALE Q4H PRN PRN Reason: Shortness of Breath/Wheezing Apixaban (Apixaban 5 Mg Tablet) 5 mg PO BID GUTIERREZ Calcium Carbonate (Calcium Carbonate 750 Mg Tab.Chew) 750 mg PO Q4H PRN PRN Reason: Heartburn Hydromorphone HCl (Hydromorphone Hcl 0.5 Mg/0.5 Ml Syringe) 0.5 mg IVPUSH Q4H PRN; Protocol PRN Reason: Pain, Severe (Pain Scale 7-10) Magnesium Hydroxide (Milk Of Magnesia 30 Ml Oral.Susp) 30 ml PO DAILY PRN PRN Reason: Constipation Melatonin (Melatonin 3 Mg Tablet) 6 mg PO BEDTIME PRN PRN Reason: Insomnia Ondansetron HCl (Ondansetron Hcl 4 Mg/2 Ml Vial) 4 mg IVPUSH Q8H PRN PRN Reason: Nausea and Vomiting Oxycodone HCl (Oxycodone Hcl Immed Release 5 Mg Tablet) 5 mg PO Q6H PRN PRN Reason: Pain, Moderate(Pain Scale 4-6) Sodium Chloride (0.9 % Sodium Chloride Flush 3 Ml Syringe) 3 ml IVFLUSH QSHIFT GUTIERREZ Zolpidem Tartrate (Zolpidem Tartrate 5 Mg Tablet) 10 mg PO BEDTIME PRN PRN Reason: Insomnia Home Medications ?Medication ?Instructions ?Recorded ?Confirmed ?Last Taken ?Type oxcarbazepine 600 mg tablet 600 mg PO BID 09/10/20 09/21/24 09/20/24 History buspirone 10 mg tablet 10 mg PO TID 10/06/23 09/21/24 09/20/24 History clonazepam 2 mg tablet 2 mg PO TID 10/06/23 09/21/24 09/20/24 History hydroxyzine pamoate 25 mg capsule 25 mg PO BID PRN Anxiety 10/06/23 09/21/24 Unknown History oxcarbazepine 300 mg tablet 300 mg PO BID 10/06/23 09/21/24 09/20/24 History zolpidem 10 mg tablet 10 mg PO BEDTIME PRN Insomnia 10/06/23 09/21/24 Unknown History aripiprazole 15 mg tablet 15 mg PO DAILY 06/02/24 09/21/24 09/20/24 History bupropion HCl 150 mg 24 hr tablet, 150 mg PO DAILY 10/18/24 02/06/25 02/05/25 History extended release furosemide 40 mg tablet 40 mg PO DAILY 09/09/24 09/21/24 09/20/24 History cefuroxime axetil 500 mg tablet 500 mg PO BID 09/21/24 09/21/24 09/20/24 History Physical Exam 2 Vital Signs and Narrative: Vital Signs: Last Vital Signs Temp 97.5 F 12/18/24 18:53 Pulse 84 12/18/24 21:15 Resp 15 12/18/24 21:15 BP 111/87 12/18/24 21:15 Pulse Ox 97 12/18/24 21:15 O2 Del Method Room Air 12/18/24 21:15 BMI result Body Mass Index 39.1 General: AOx3, no acute distress Resp: CTA bilaterally CVS: S1, S2, RRR GI: +BS, NT, no distention Skin: Warm, dry Neuro: Cranial nerves II-XII grossly intact bilaterally. Motor grossly intact bilaterally Extremities: No LE edema Psych: Appropriate affect Const: General: No confusion Orientation/consciousness: No confusion Eyes: Direct Ophthalmoscopy: No photophobia Neuro: General: No confusion Results Labs 12/18/24 14:52 12/18/24 14:52 Labs: Laboratory Results - last 24 hr 12/18/24 14:52 MCV 88.5 MCH 30.0 MCHC 33.9 RDW 13.7 Plt Count 327 D MPV 10.7 Immature Gran % (Auto) 1.4 H Neut % (Auto) 69.9 Lymph % (Auto) 21.6 [place] % (Auto) 4.9 Eos % (Auto) 1.6 Baso % (Auto) 0.6 Lymph # (Auto) 2.7 [place] # (Auto) 0.6 Eos # (Auto) 0.2 Baso # (Auto) 0.1 Abs Immat Gran (auto) 0.17 H Absolute Neuts (auto) 8.6 H Absolute Nucleated RBC 0.000 Nucleated RBC % (auto) 0.0 PT 12.0 INR 1.0 APTT 31.2 D Anion Gap 15 Estim Creat Clear Calc 113.3 Estimated GFR > 60 Random Glucose 180 H Calcium 9.9 Total Bilirubin 0.5 AST 32 ALT 54 H Alkaline Phosphatase 47 B-Natriuretic Peptide 14 Total Protein 7.6 Albumin 4.6 Imaging Radiologist's Impressions: Impressions Chest X-Ray 12/18/24 15:13 IMPRESSION: No acute airspace disease. Stable chest. Electronically signed by: Clarence King MD 12/18/2024 03:20 PM EDT RP Assessment and Plan (1) Atypical chest pain: Status: Inactive (2) Obesity (BMI 30-39.9): Status: Acute Plan Patient is a 54-year-old male with a past medical history significant for COPD, former smoker, depression, HFpEF, HTN, HLD, GERD, pernicious anemia, stable CAD, morbid obesity, former EtOH use, former cocaine use, PTSD, history NSTEMI, history AFib s/p cardioversion 09/2024 on Eliquis, who presented to the ED due to chest pain radiating to the left arm starting around 10:00 this morning. Atypical chest pain -- resolved - troponin x2 negative - EKG without infarction - ED provider discussed with Cardiology, suggested admission for observation - given morphine, Dilaudid, aspirin and DuoNeb in ED - monitor on telemetry - repeat troponin in a.m. - followed by Dr. Brooks - cardiology consult COPD unspecified - no wheezing on exam or acute exacerbation - patient reporting that he needs supplemental O2, O2 saturations currently ok at rest - consider ambulatory O2 trial prior to discharge History AFib s/p cardioversion - EKG without AFib, rate controlled - continue Eliquis Chronic HFpEF, no acute exacerbation - continue home meds Pernicious anemia - H&H stable Morbid obesity - BMI 39.1 - weight loss encouraged Full code, discussed with patient VTE prophylaxis: Eliquis Patient with atypical chest pain and history of NSTEMI, requiring admission for observation for repeat testing and cardiology consultation tomorrow morning. Quality Stroke Does the patient have a stroke diagnosis?: No VTE Prior VTE?: No VTE Risk Level:: Medical - moderate - high VTE Device Contraindication: Treatment Not Indicated VTE Drug Contraindication: N/A - Med Ordered
--- NOTE | 2024-12-18 22:51 | PHA.MEDREC ---
Addendum entered by Pamella Pratt [facility] 12/19/24 10:39: [facility] REVIEWED. Confirmed both bupropion and multaq even though last fill in september x 30 day supply, same with apixaban. Messaged Dr. Bradley to notify him of this. Addendum entered by Stephanie Larry 12/19/24 10:12: Spoke to [facility] pharmacy they stated patient last filled Bupropion XL 150 mg daily and Multaq 400 mg BID , however last fill date September 2024 for 30 days. left Multaq unconfirmed Addendum entered by Rosie Phillip [facility] 12/18/24 22:57: reviewed by [facility] Original Note: Pharmacy Consult ? Medication Reconciliation Pharmacy attempted to complete med rec. Spoke with patient and he stated he is in the process of transferring all his medications from [facility] on [address] and [facility] [address] on [address] to our pharmacy here at [facility] and confirmed what he could for medications. The patient was not sure if he is taking Bupropion or Multaq still and stated those were being filled at [facility] on [address] Will have Am Team follow up in the morning to confirm the patient is still filling the medications he conifmred.
[2024-12-18] MEDS: Zolpidem Tartrate 5 MG TABLET 10 MG PO (22:52)
[2024-12-19] MEDS: carisoprodoL 350 MG TABLET PO (05:04)
[2024-12-19 05:39] VITALS: BP 158/94; PULSE 88; RESP 16; TEMP 36.8; O2SAT 97
[2024-12-19 05:57] LABS: MANUAL DIFF FLAG NO
[2024-12-19 06:00] LABS: Basophils Absolute Auto 0.1 X10*3/uL (0.0-0.2); Basophils Percent Auto 0.5 % (0-2); Eosinophils Absolute Auto 0.2 X10*3/uL (0.0-0.4); Eosinophils Percent Auto 1.6 % (0-4); Hematocrit 42.1 % (42.0-52.0); Hemoglobin 13.9 g/dl (14.0-18.0); Imm Gran Pct Auto 1.5 % (0.0-0.4); Lymphocytes Absolute Auto 2.9 X10*3/uL (1.2-4.9); Lymphocytes Percent Auto 22.3 % (20-40); Mean Corpuscular Hemoglobin 29.6 pg (27.0-33.0); Mean Corpuscular Volume 89.6 fL (80.0-98.0); Mean Platelet Volume 10.5 fL (9.4-12.4); Monocytes Percent Auto 7.6 % (2-11); Neutrophils Absolute Auto 8.6 x10*3/uL (2.0-8.3); Neutrophils Percent Auto 66.5 % (45-73); Platelet Count 267 X10*3/uL (160-400); Red Cell Distribution Width 13.7 % (11.0-16.0)
[2024-12-19 06:16] LABS: Anion Gap 16 (12-20); Blood Urea Nitrogen 28 mg/dL (9-16); Calcium 9.2 mg/dL (8.4-10.2); Carbon Dioxide 24 mmol/L (22-29); Chloride 105 mmol/L (96-108); Creatinine Clr Calc Pharmacy 118.7; Estimated Glomerular Filt Rate > 60; Glucose Random 136 mg/dL (60-115); Potassium 4.1 mmol/L (3.3-5.1); Sodium 141 mmol/L (135-145)
[2024-12-19 06:20] LABS: Troponin-I High Sensitivity 7.9 ng/L (<3.5-35.0)
[2024-12-19] MEDS: OXcarbazepine 300 MG TABLET 600 MG PO (08:56)
[2024-12-19] MEDS: Cholecalciferol (Vitamin D3) 25 MCG TABLET 50 MCG PO (08:56)
[2024-12-19] MEDS: clonazePAM 1 MG TABLET 2 MG PO (08:57)
[2024-12-19] MEDS: Apixaban 5 MG TABLET PO (08:57)
[2024-12-19] MEDS: Omeprazole 20 MG CAPSULE.DR PO (08:57)
[2024-12-19] MEDS: lisinopriL 40 MG TABLET PO (08:57)
[2024-12-19] MEDS: OXcarbazepine 300 MG TABLET PO (08:57)
[2024-12-19] MEDS: Aspirin 81 MG TAB.CHEW PO (08:57)
[2024-12-19] MEDS: busPIRone HCl 10 MG TABLET PO (08:57)
[2024-12-19] MEDS: ARIPiprazole 15 MG TABLET PO (08:58)
[2024-12-19] MEDS: amLODIPine Besylate 10 MG TABLET PO (08:58)
[2024-12-19] MEDS: Folic Acid 1 MG TABLET PO (08:58)
[2024-12-19] MEDS: 0.9 % Sodium Chloride Flush 3 ML SYRINGE IVFLUSH (08:58)
--- NOTE | 2024-12-19 09:22 | PC.NURSE ---
Dr. Bradley to bedside speaking with patient. RN report received from Molly Peña RN.
--- NOTE | 2024-12-19 09:46 | PC.NURSE ---
Plan for discharge, per Dr. Bradley.
--- NOTE | 2024-12-19 09:48 | PC.NURSE ---
Dr. Brooks arrived, plan to speak to patient.
--- NOTE | 2024-12-19 09:58 | P.CONCA_ITS ---
History of Present Illness History of Present Illness Date of Service: 12/19/24 Chief complaint: chest pain Narrative: This is a cardiology consultation regarding chest pain. Patient states that he was watching TV and turning to one side. After that, he started noticing discomfort in the left chest that was going into the left arm. He states that was also going into the left lower extremity. He felt somewhat like pins and needles in his arms and legs. After that, he came to the ER and he was kept for overnight observation. Patient has many comorbidities including stable coronary artery disease and paroxysmal atrial fibrillation status post cardioversion September of this year. He also has chronic pain issues but he feels that this pain is different from before. Per H and P, it seems that the chest pain was reproductive with touch but not present at the time of evaluation. Currently, he is pain-free and states he is fine. Review of Systems 2 Review of Systems: Yes all other systems are reviewed and are negative Constitutional: Constitutional: Reports as per HPI and Reports no additional constitutional complaints Eyes: Eyes: Reports as per HPI and Denies no additional eye complaints ENT: Denies system reviewed and no additional complaints, except as documented and Reports as per HPI Cardiovascular: Cardiovascular: Reports as per HPI, Reports no additional cardiovascular complaints, Denies acrocyanosis, Denies cool extremities, Reports chest pain, Denies leg edema, Denies lightheadedness, Denies palpitations and Denies dyspnea Respiratory: Respiratory: Reports as per HPI, Denies no additional respiratory complaints and Denies dyspnea Gastrointestinal: Gastrointestinal: Reports as per HPI and Denies no additional gastrointestinal complaints Genitourinary: Genitourinary: Reports no additional male genitourinary complaints and Reports as per HPI Musculoskeletal: Musculoskeletal: Reports no additional musculoskeletal complaints and Reports as per HPI Integumentary/Breasts: Skin/Breast: Reports system reviewed and no additional complaints, except as docu Neurologic: Reports system reviewed and no additional complaints, except as documented and Reports as per HPI Psychiatric: Psychiatric: Reports no additional psychiatric complaints and Reports as per HPI Endocrine: Endocrine: Reports no additional endocrine complaints, Reports as per HPI and Denies palpitations Hematologic/Lymphatic: Hematologic/Lymphatic: Reports no additional hematologic/lymphatic complaints and Reports as per HPI Allergic/Immunologic: Allergic/Immunologic: Reports no additional allergic/immunologic complaints and Reports as per HPI [facility] Past Medical History Medical History Atherosclerotic cardiovascular disease Emphysema lung Personal history of nicotine dependence Tubular adenoma of colon Cocaine abuse Lactic acid acidosis Hypoxemia Opioid overdose COVID-19 COPD (chronic obstructive pulmonary disease) History of pneumonia Positive colorectal cancer screening using Cologuard test Gout Essential hypertension Lymphopenia Mixed hyperlipidemia Pernicious anemia Lumbar degenerative disc disease GERD (gastroesophageal reflux disease) Family History Family History Father Lung cancer Mother Chronic mental illness Alzheimer disease Maternal Grandmother Bone cancer Hypertension Paternal Grandmother Brain cancer Maternal Uncle Cancer Family/Other Chronic mental illness Substance use disorder Surgical History Surgical History History of colonoscopy History of esophagogastroduodenoscopy (EGD) History of surgery Status post surgical removal of malignant neoplasm of skin History of shoulder surgery History of arthroscopy of left knee History of total left knee replacement Social History Social History Household Members: Family Household Members Other:: 2 room mates Housing: House Alcohol intake: former Comment: refsued, wants to be indep Patient Tobacco Use Status: Former Tobacco user Tobacco use type: Cigarette Cigarettes Per Day: 10 Smoked in Last 30 Days: No e-Cigarette/Vaping Use: Never Used Second Hand Smoke Exposure: No Use of substances other than those prescribed or required for medical reasons: No Substance Use Type: Crack/Cocaine Advance Directives: No Advance Directives Information Provided: No Do you have a plan to hurt others: No Plan Nutrition Risks: No Nutritional Risk service: Yes Current occupational status: unemployed and disabled Cognitive needs: No Hearing needs: No Vision needs: Yes Meds Allergies Allergy/AdvReac Type Severity Reaction Status Date / Time bee stings Allergy Severe Anaphylaxis Verified 12/18/24 14:31 Active Medications: Current Medications Acetaminophen (Acetaminophen 325 Mg Tablet) 975 mg PO Q6H PRN PRN Reason: Pain, Mild 1-3,fever,headache Albuterol Sulfate (Albuterol Sulfate 90 Mcg 8 Gm Inhaler) 2 puff INHALE Q4H PRN PRN Reason: shortness of breath or wheezing Albuterol/Ipratropium (Albuterol/Iprat 2.5/0.5mg 3 Ml Ampul.Neb) 3 ml INHALE Q4H PRN PRN Reason: Shortness of Breath/Wheezing Amlodipine Besylate (Amlodipine Besylate 10 Mg Tablet) 10 mg PO DAILY [facility]; Protocol Last Admin: 12/19/24 08:58 Dose: 10 mg Apixaban (Apixaban 5 Mg Tablet) 5 mg PO BID [facility] Last Admin: 12/19/24 08:57 Dose: 5 mg Aripiprazole (Aripiprazole 15 Mg Tablet) 15 mg PO DAILY [facility] Last Admin: 12/19/24 08:58 Dose: 15 mg Aspirin (Aspirin 81 Mg Tab.Chew) 81 mg PO DAILY [facility] Last Admin: 12/19/24 08:57 Dose: 81 mg Atorvastatin Calcium (Atorvastatin Calcium 40 Mg Tablet) 40 mg PO BEDTIME [facility] Buspirone HCl (Buspirone Hcl 10 Mg Tablet) 10 mg PO TID [facility] Last Admin: 12/19/24 08:57 Dose: 10 mg Calcium Carbonate (Calcium Carbonate 750 Mg Tab.Chew) 750 mg PO Q4H PRN PRN Reason: Heartburn Carisoprodol (Carisoprodol 350 Mg Tablet) 350 mg PO TID PRN PRN Reason: Muscle Pain Clonazepam (Clonazepam 1 Mg Tablet) 2 mg PO TID [facility] Last Admin: 12/19/24 08:57 Dose: 2 mg Fenofibrate (Fenofibrate 160 Mg Tablet) 160 mg PO DAILY [facility] Folic Acid (Folic Acid 1 Mg Tablet) 1 mg PO DAILY [facility] Last Admin: 12/19/24 08:58 Dose: 1 mg Hydromorphone HCl (Hydromorphone Hcl 0.5 Mg/0.5 Ml Syringe) 0.5 mg IVPUSH Q4H PRN; Protocol PRN Reason: Pain, Severe (Pain Scale 7-10) Hydroxyzine HCl (Hydroxyzine Hcl 25 Mg Tablet) 25 mg PO BID PRN PRN Reason: Anxiety Lisinopril (Lisinopril 40 Mg Tablet) 40 mg PO DAILY [facility]; Protocol Last Admin: 12/19/24 08:57 Dose: 40 mg Magnesium Hydroxide (Milk Of Magnesia 30 Ml Oral.Susp) 30 ml PO DAILY PRN PRN Reason: Constipation Meclizine HCl (Meclizine Hcl 25 Mg Tablet) 25 mg PO BID PRN PRN Reason: dizziness Melatonin (Melatonin 3 Mg Tablet) 6 mg PO BEDTIME PRN PRN Reason: Insomnia Non-Formulary Medication (Umeclidinium-Vilanterol [Anoro Ellipta]) 1 each INHALE DAILY [facility] Omeprazole (Omeprazole 20 Mg Capsule.Dr) 20 mg PO DAILY@0630 [facility] Last Admin: 12/19/24 08:57 Dose: 20 mg Ondansetron HCl (Ondansetron Hcl 4 Mg/2 Ml Vial) 4 mg IVPUSH Q8H PRN PRN Reason: Nausea and Vomiting Oxcarbazepine (Oxcarbazepine 300 Mg Tablet) 300 mg PO BID [facility] Last Admin: 12/19/24 08:57 Dose: 300 mg Oxcarbazepine (Oxcarbazepine 300 Mg Tablet) 600 mg PO BID [facility] Last Admin: 12/19/24 08:56 Dose: 600 mg Oxycodone HCl (Oxycodone Hcl Immed Release 5 Mg Tablet) 5 mg PO Q6H PRN PRN Reason: Pain, Moderate(Pain Scale 4-6) Prazosin HCl (Prazosin Hcl 1 Mg Capsule) 2 mg PO BEDTIME [facility]; Protocol Sodium Chloride (0.9 % Sodium Chloride Flush 3 Ml Syringe) 3 ml IVFLUSH QSHIFT [facility] Last Admin: 12/19/24 08:58 Dose: 3 ml Vitamin D (Cholecalciferol (Vitamin D3) 25 Mcg Tablet) 50 mcg PO DAILY [facility] Last Admin: 12/19/24 08:56 Dose: 50 mcg Zolpidem Tartrate (Zolpidem Tartrate 5 Mg Tablet) 10 mg PO BEDTIME PRN PRN Reason: Insomnia Last Admin: 12/18/24 22:52 Dose: 10 mg Home Medications ?Medication ?Instructions ?Recorded ?Confirmed ?Last Taken ?Type oxcarbazepine 600 mg tablet 600 mg PO BID 09/10/20 12/18/24 12/18/24 History buspirone 10 mg tablet 10 mg PO TID 10/06/23 12/18/24 12/18/24 History clonazepam 2 mg tablet 2 mg PO TID 10/06/23 12/18/24 12/18/24 History hydroxyzine pamoate 25 mg capsule 25 mg PO BID PRN Anxiety 10/06/23 12/18/24 Unknown History oxcarbazepine 300 mg tablet 300 mg PO BID 10/06/23 12/18/24 12/18/24 History zolpidem 10 mg tablet 10 mg PO BEDTIME Insomnia 10/06/23 12/18/24 12/17/24 History aripiprazole 15 mg tablet 15 mg PO DAILY 06/02/24 12/18/24 12/18/24 History bupropion HCl 150 mg 24 hr tablet, 150 mg PO DAILY 06/02/24 09/21/24 09/20/24 History extended release furosemide 40 mg tablet 40 mg PO DAILY PRN Edema 09/09/24 12/18/24 09/20/24 History prazosin 2 mg capsule 2 mg PO BEDTIME 12/18/24 12/18/24 12/17/24 History Physical Exam 2 Vital Signs: Vital Signs: Last Vital Signs Temp 98.3 F 12/19/24 05:39 Pulse 88 12/19/24 05:39 Resp 16 12/19/24 05:39 BP 158/94 H 12/19/24 05:39 Pulse Ox 97 12/19/24 05:39 O2 Del Method Room Air 12/19/24 05:39 BMI result Body Mass Index 39.1 Const: General: comfortable and no acute distress O rientation/consciousness: patient oriented x3 HEENT: Other: Unremarkable Head: Yes normal to inspection Neck: Neck: Yes normal visual inspection Chest: Chest palpation & inspection: normal inspection of the chest Resp: Auscultation: clear to auscultation bilaterally Cardio: Palpation: normal PMI Heart sounds: S1 normal heart sound present, S2 normal heart sound present, no gallops, no murmurs and no rubs GI: Palpation (GI): Soft to palpation Back/Spine/Pelvis: Other: unremarkable Skin: General skin exam: no rashes or lesions noted Neuro: General: patient oriented x3 Extrem: General: Yes normal to inspection Psych: Mental Status: mental status grossly normal Objective Labs and Meds 12/19/24 05:16 12/19/24 05:16 Lab results: Laboratory Results - last 24 hr 12/18/24 12/18/24 12/19/24 14:52 18:19 05:16 WBC 12.3 H 13.0 H RBC 5.03 D 4.70 Hgb 15.1 D 13.9 L Hct 44.5 D 42.1 MCV 88.5 89.6 MCH 30.0 29.6 MCHC 33.9 33.0 RDW 13.7 13.7 Plt Count 327 D 267 MPV 10.7 10.5 Immature Gran % (Auto) 1.4 H 1.5 H Neut % (Auto) 69.9 66.5 Lymph % (Auto) 21.6 22.3 [place] % (Auto) 4.9 7.6 Eos % (Auto) 1.6 1.6 Baso % (Auto) 0.6 0.5 Lymph # (Auto) 2.7 2.9 [place] # (Auto) 0.6 1.0 Eos # (Auto) 0.2 0.2 Baso # (Auto) 0.1 0.1 Abs Immat Gran (auto) 0.17 H 0.20 H Absolute Neuts (auto) 8.6 H 8.6 H Absolute Nucleated RBC 0.000 0.000 Nucleated RBC % (auto) 0.0 0.0 PT 12.0 INR 1.0 APTT 31.2 D Sodium 140 141 Potassium 3.7 4.1 Chloride 102 105 Carbon Dioxide 27 24 Anion Gap 15 16 BUN 19 H 28 H Creatinine 1.09 1.04 Estim Creat Clear Calc 113.3 118.7 Estimated GFR > 60 > 60 Random Glucose 180 H 136 H Calcium 9.9 9.2 D Total Bilirubin 0.5 AST 32 ALT 54 H Alkaline Phosphatase 47 Troponin I High Sens 7.5 D 7.1 7.9 B-Natriuretic Peptide 14 Total Protein 7.6 Albumin 4.6 ECG Interpretation: EKG with underlying sinus tachycardia at 104/Min; LVH with repolarization; lateral T inversions, 1/aVL. Unchanged from prior. Imaging Radiologist's impression: Impressions Chest X-Ray 12/18/24 15:13 IMPRESSION: No acute airspace disease. Stable chest. Electronically signed by: Clarence King MD 12/18/2024 03:20 PM EDT Assessment and Plan (1) Precordial chest pain: Status: Acute (2) Atherosclerotic cardiovascular disease: Status: Acute (3) PAF (paroxysmal atrial fibrillation): Status: Acute Plan Patient has had coronary CTA in the past. That shows calcium score of 409. Distributed mostly between the LAD/circumflex. Some in the right coronary artery. In the CTA portion, moderate stenosis in the right coronary artery; [id number] in the circumflex. Currently EKG shows no ischemic changes. Unremarkable high sensitivity troponins. Pain is also somewhat atypical. Overall, possible musculoskeletal. At this time, he is pain-free and biomarkers are negative and hence we will hold off any further workup. Can continue Multaq for the atrial fibrillation. Also on Eliquis. Stable in that regard. He can continue the current medical regimen otherwise. Follow up in clinic. Procedures Date of Service Date of Service: 12/19/24
--- NOTE | 2024-12-19 10:57 | PM.DS ---
DS: Providers Provider Date of Service: 12/19/24 Date of admission: 12/18/24 19:44 Date of discharge: 12/19/24 Primary care physician: Yulissa Keyes MD Consults: 12/18/24 22:03 Consult to Cardiology Routine Consulting Provider: [facility] Reason for consultation: chest pain, hx NSTEMI Has provider been notified: Yes DS: Diagnosis Discharge Diagnosis (1) Precordial chest pain: Status: Acute (2) Atherosclerotic cardiovascular disease: Status: Acute (3) PAF (paroxysmal atrial fibrillation): Status: Acute DS: Summary Hospital Course Hospital Course: from initial hpi: 54-year-old male with a past medical history significant for COPD, former smoker, depression, HFpEF, HTN, HLD, GERD, pernicious anemia, stable CAD, morbid obesity, former EtOH use, former cocaine use, PTSD, history NSTEMI, history AFib s/p cardioversion 09/2024 on Eliquis, who presented to the ED due to chest pain radiating to the left arm starting around 10:00 this morning. The patient reported it was constant and lasted for a few hours. He has been having chest pain for the past few days but this morning was the worst. He reports that the pain starts at rest without exertion. He also reports that he has COPD and was told he should be on oxygen but has not been able to get this. He describes chronic shortness of breath but denies any nausea or worsening shortness of breath from his baseline. He was pale and diaphoretic and triage with improvement during his ED stay. His chest pain was reproductive with touch however is non-existent at this time. hospital course: Patient was admitted for atypical chest pain had troponins negative x3 was seen by Cardiology who felt this was likely noncardiac in nature recommended outpatient follow up. For COPD remained stable without wheezing. For history of AFib was continued on Eliquis, Multaq. For morbid obesity weight loss is recommended. Patient is feeling better will be discharged home. Time Attestation Discharge Coordination Time (in mins): 33 Quality: Safe Use of Opioids Does Pt have an Active Cancer Diagnosis on the Problem List?: No Quality: Stroke Does the patient have a stroke diagnosis?: No Physical Exam Vital Signs: Vital Signs: Last Vital Signs Temp 98.3 F 12/19/24 05:39 Pulse 88 12/19/24 05:39 Resp 16 12/19/24 05:39 BP 158/94 H 12/19/24 05:39 Pulse Ox 97 12/19/24 05:39 O2 Del Method Room Air 12/19/24 05:39 BMI result Body Mass Index 39.1 General: AO X 3, no acute distress Resp: CTA bilateral, no accessory muscles used CVS: S1,S2,RRR GI: soft, non tender, non distended Neuro: motor grossly intact, alert Psych: appropriate affect, appropriate insight DS: Data Data Completed and Pending Completed studies during hospitalization [Text1]: Procedures Insertion of Infusion Device into Upper Vein, Percutaneous Approach (08/25/21) Jewish of Cardiac Rhythm, Single (09/21/24) Ultrasonography of Heart with Aorta, Transesophageal (09/21/24) Labs on day of discharge: Laboratory Results - last 24 hr 12/18/24 12/18/24 12/19/24 14:52 18:19 05:16 WBC 12.3 H 13.0 H RBC 5.03 D 4.70 Hgb 15.1 D 13.9 L Hct 44.5 D 42.1 MCV 88.5 89.6 MCH 30.0 29.6 MCHC 33.9 33.0 RDW 13.7 13.7 Plt Count 327 D 267 MPV 10.7 10.5 Immature Gran % (Auto) 1.4 H 1.5 H Neut % (Auto) 69.9 66.5 Lymph % (Auto) 21.6 22.3 [place] % (Auto) 4.9 7.6 Eos % (Auto) 1.6 1.6 Baso % (Auto) 0.6 0.5 Lymph # (Auto) 2.7 2.9 [place] # (Auto) 0.6 1.0 Eos # (Auto) 0.2 0.2 Baso # (Auto) 0.1 0.1 Abs Immat Gran (auto) 0.17 H 0.20 H Absolute Neuts (auto) 8.6 H 8.6 H Absolute Nucleated RBC 0.000 0.000 Nucleated RBC % (auto) 0.0 0.0 PT 12.0 INR 1.0 APTT 31.2 D Sodium 140 141 Potassium 3.7 4.1 Chloride 102 105 Carbon Dioxide 27 24 Anion Gap 15 16 BUN 19 H 28 H Creatinine 1.09 1.04 Estim Creat Clear Calc 113.3 118.7 Estimated GFR > 60 > 60 Random Glucose 180 H 136 H Calcium 9.9 9.2 D Total Bilirubin 0.5 AST 32 ALT 54 H Alkaline Phosphatase 47 Troponin I High Sens 7.5 D 7.1 7.9 B-Natriuretic Peptide 14 Total Protein 7.6 Albumin 4.6 Discharge Plan Discharge Anticipated Discharge Date/Time: 12/19/24 10:54 Patient Disposition: Home, Self-Care Discharge Diagnosis: chest pain Referrals: Yulissa Dempsey MD [Primary Care Provider] - 1 Week Discharge Medications: Continued (DME) Blood Pressure Cuff Misc See Rx Instructions .Route Qty: 1 0RF Rx Instructions: As directed (DME) Grab bar Misc See Rx Instructions .Route Qty: 1 0RF Rx Instructions: As directed (DME) Shower Chair Misc See Rx Instructions .Route Qty: 1 0RF Rx Instructions: As directed (DME) hand rails See Rx Instructions .Route .MEDSUPPLY Qty: 1 0RF Rx Instructions: As directed folic acid 1 mg tablet 1 mg PO DAILY Qty: 30 11RF indomethacin 50 mg capsule 50 mg PO BID 10 Days Qty: 20 1RF Rx Instructions: administer with food or milk albuterol sulfate [Ventolin HFA] 90 mcg/actuation HFA aerosol inhaler 2 puff inhalation Q4-6H PRN (Reason: shortness of breath or wheezing) Qty: 8.5 6RF carisoprodol 350 mg tablet 350 mg PO TID PRN (Reason: Muscle Pain) 30 Days Qty: 90 0RF cholecalciferol (vitamin D3) 50 mcg (2,000 unit) tablet 50 mcg PO DAILY Qty: 90 0RF albuterol sulfate 2.5 mg /3 mL (0.083 %) solution for nebulization 2.5 mg inhalation TID PRN (Reason: Shortness Of Breath Or Wheezing) Qty: 225 3RF meclizine 25 mg tablet 25 mg PO BID PRN (Reason: dizziness) 5 Days Qty: 10 0RF buspirone 10 mg tablet 10 mg PO TID hydroxyzine pamoate 25 mg capsule 25 mg PO BID PRN (Reason: Anxiety) oxcarbazepine 300 mg tablet 300 mg PO BID zolpidem 10 mg tablet 10 mg PO BEDTIME clonazepam 2 mg tablet 2 mg PO TID furosemide 40 mg tablet 40 mg PO DAILY PRN (Reason: Edema) Eliquis 5 mg Tablet 5 mg PO BID Qty: 180 0RF Multaq 400 mg Tablet 400 mg PO BID Qty: 180 0RF prazosin 2 mg capsule 2 mg PO BEDTIME omeprazole 20 mg Capsule,Delayed Release(Dr/Ec) 20 mg PO DAILY@0630 (DME) blood pressure monitor [Blood Pressure Kit] Kit See Rx Instructions .Route Qty: 1 0RF Rx Instructions: As directed oxcarbazepine 600 mg tablet 600 mg PO BID Anoro Ellipta 62.5-25 mcg/actuation blister with device 1 ea INHALATION DAILY Qty: 1 6RF aripiprazole 15 mg tablet 15 mg PO DAILY bupropion HCl 150 mg tablet extended release 24 hr 150 mg PO DAILY amlodipine 10 mg tablet 10 mg PO DAILY Qty: 90 3RF atorvastatin 40 mg tablet 40 mg PO BEDTIME Qty: 30 5RF aspirin [Aspirin Childrens] 81 mg tablet,chewable 81 mg PO DAILY Qty: 30 5RF chlorthalidone 25 mg tablet 25 mg PO DAILY 90 Days Qty: 90 1RF fenofibrate 160 mg tablet 160 mg PO DAILY 90 Days Qty: 90 1RF lisinopril 40 mg tablet 40 mg PO DAILY Qty: 90 2RF Discharge Orders: Discharge Order (Routine); Ordered 12/19/24 Ordered By: Saroj Bradley Diet: Advance to usual diet Activity on Discharge: As tolerated Stand Alone Forms: Patient Portal Discharge page Print Language: Faroese Care Plan Goals: recovery Health Concerns: chest pain Plan of Treatment: outpatient follow up Assessment: see above
[2024-12-19 11:04] VITALS: BP 113/66; PULSE 82; RESP 20; TEMP 35.9; O2SAT 92
[2024-12-19 11:09] VITALS: BMI 60.9
[2024-12-19 11:15] VITALS: BP 113/66; PULSE 82; RESP 20; TEMP 35.9; O2SAT 92
--- NOTE | 2024-12-19 11:22 | MHC.CM.PN ---
CM met with patient in the ED and addressed ROSS with him. Patient has been medically cleared for dc to home today, self care.
== END 2024-12-19 11:30 | disposition home or self-care (01) ==
LOC: HO.ED 15:26 → HO.EDOVER 20:14
PROVIDERS: Physician Assistant; Admitting Provider Student in an Organized Health Care Education/Training Program; Emergency Provider Emergency Medicine Emergency Medical Services; PCP Internal Medicine; Visit Provider Internal Medicine
DX: R07.2 Precordial pain (principal); I25.10 Atherosclerotic heart disease of native coronary artery without angina pectoris; I48.0 Paroxysmal atrial fibrillation; R07.89 Other chest pain; R06.02 Shortness of breath; E78.2 Mixed hyperlipidemia; K21.9 Gastro-esophageal reflux disease without esophagitis; J44.9 Chronic obstructive pulmonary disease, unspecified; I11.0 Hypertensive heart disease with heart failure; I50.30 Unspecified diastolic (congestive) heart failure; D51.0 Vitamin B12 deficiency anemia due to intrinsic factor deficiency; E66.9 Obesity, unspecified; Z68.30 Body mass index [BMI] 30.0-30.9, adult; Z87.891 Personal history of nicotine dependence; Z79.899 Other long term (current) drug therapy; Z79.01 Long term (current) use of anticoagulants
CPT/HCPCS: 36415; 71045; 80048; 80053; 83880; 84484; 85025; 85610; 85730; 93005; 96374; 96375; 99222; 99285; J1171; J2270

== ENCOUNTER → 2024-12-18 14:19 | Outpatient (BNV) | payer OTHER, SELFPAY | PROVIDERS: Admitting Provider Student in an Organized Health Care Education/Training Program; Emergency Provider Emergency Medicine Emergency Medical Services; PCP Internal Medicine; Visit Provider Internal Medicine | DX: R00.0 Tachycardia, unspecified (principal); I51.7 Cardiomegaly | CPT/HCPCS: 93010 ==

== ENCOUNTER → 2024-12-18 14:32 | Outpatient (BNV) | payer OTHER, SELFPAY | PROVIDERS: Emergency Provider Emergency Medicine Emergency Medical Services; PCP Internal Medicine; Visit Provider Radiology Diagnostic Radiology | DX: R07.9 Chest pain, unspecified (principal) | CPT/HCPCS: 71045 ==

== ENCOUNTER → 2024-12-18 19:44 | Outpatient (BNV) | payer OTHER, SELFPAY | PROVIDERS: Admitting Provider Student in an Organized Health Care Education/Training Program; Emergency Provider Emergency Medicine Emergency Medical Services; PCP Internal Medicine; Visit Provider Physician Assistant | DX: R07.2 Precordial pain (principal); I25.10 Atherosclerotic heart disease of native coronary artery without angina pectoris; I48.0 Paroxysmal atrial fibrillation | CPT/HCPCS: 99223; 99239 ==

== ENCOUNTER → 2024-12-18 19:44 | Outpatient (BNV) | payer OTHER, SELFPAY | PROVIDERS: Admitting Provider Student in an Organized Health Care Education/Training Program; Emergency Provider Emergency Medicine Emergency Medical Services; PCP Internal Medicine; Visit Provider Internal Medicine | DX: R07.2 Precordial pain (principal); I25.10 Atherosclerotic heart disease of native coronary artery without angina pectoris; I48.0 Paroxysmal atrial fibrillation | CPT/HCPCS: 99223 ==

== ENCOUNTER 2025-01-01 09:36 | Outpatient (AMB) | payer OTHER, SELFPAY ==
--- NOTE | 2025-01-01 09:49 | MHC.PC.OV ---
Vital Signs 01/01/25 09:50 01/01/25 10:00 Height 6 ft 2 in Weight 311 lb 8 oz BMI 40.0 BP 130/100 H 152/108 H Blood Pressure Location Lt brachial Lt brachial Position Sitting Sitting Pulse 96 Pulse Source Pulse Oximeter Temp 97.1 F Temp Source Temporal Artery Scan Pulse Oximetry (%) 98 Oxygen Delivery Method Room Air Intake Visit Reasons: [facility] 12/21 stroke Intake Note: Patient is here for hospital discharge follow up. [place] [facility] [place] Program Director Scouting Required: No Rubber Turner: Not Required per policy Accompanied by: Self / Same As Patient Allergies bee stings Allergy (Severe, Verified 01/06/25 11:52) Anaphylaxis Medication List - Last Reconciled 01/06/25 by ZULMA Heredia albuterol sulfate 90 mcg/actuation (Ventolin HFA) 2 puffs inhalation Q4-6H PRN albuterol sulfate 2.5 mg (3 mL) inhalation TID PRN amlodipine 10 mg PO DAILY apixaban (Eliquis) 5 mg PO BID aripiprazole 15 mg PO DAILY aspirin (Aspirin Childrens) 81 mg PO DAILY atorvastatin 40 mg PO BEDTIME blood pressure monitor (Blood Pressure Kit) As directed bupropion HCl XL 150 mg PO DAILY buspirone 10 mg PO TID carisoprodol 350 mg PO TID PRN 30 days chlorthalidone 25 mg PO DAILY 90 days cholecalciferol (vitamin D3) 50 mcg PO DAILY clonazepam 2 mg PO TID dronedarone (Multaq) 400 mg PO BID fenofibrate 160 mg PO DAILY 90 days folic acid 1 mg PO DAILY furosemide 40 mg PO DAILY PRN Grab bar As directed [hand rails As directed] hydroxyzine pamoate 25 mg PO BID PRN indomethacin 50 mg PO BID 10 days lisinopril 40 mg PO DAILY meclizine 25 mg PO BID PRN 5 days miscellaneous medical supply (Blood Pressure Cuff) As directed oxcarbazepine 600 mg PO BID oxcarbazepine 300 mg PO BID pantoprazole 40 mg PO QAM prazosin 2 mg PO BEDTIME Shower Chair As directed umeclidinium-vilanterol 62.5-25 mcg/actuation (Anoro Ellipta) 1 ea inhalation DAILY zolpidem 10 mg PO BEDTIME Tobacco use date assessed: 01/01/25 Dental Screening Dental Screen Date: 08/21/24 [facility] 12/21 stroke HPI Details Patient is a 54-year-old male with significant past medical history of paroxysmal atrial fibrillation, major depression, COPD, GERD The patient is presenting for follow up post hospital discharge. He went into the hospital complaining off chest pain that radiates down his left arm intermittently. Patient workup hospital was negative for cardiac related issues. He has complaints of chest pain and dyspnea. The pain has become more frequent since he quit smoking about one year ago. It occurs on the left side of the chest radiating to the left arm and is associated with physical activity. The duration of pain varies, with the longest lasting several hours. His past medical history is significant for atrial fibrillation and COPD. The patient indicates he was asymptomatic at the time of AFib diagnosis but has since experienced heart palpitations during physical exertion. His COPD is that is currently managed via inhalers and neb tx, reports that when when he was in the hospital for chest pain they gave him oxygen at nighttime and this worked well for him. Patient is requesting oxygen to be ordered for sleep. He is also requesting a dietitian referral to assist with losing weight. The patient currently has a BMI of 40. He is also concerned with his WBC constantly me in elevated and wants to be checked for cancer. Reports he has a family history of multiple different cancers. Discussed possible cardiac stress test with the patient and he verbalized that this was tried in the past and it was unable to completed due to his COPD severity. Blood pressure elevated in office, no changes were made due to the patient admitting to not taking his medications as yet. Plus, he has been under a lot of stress. TCM TCM Information Date of Discharge 12/21/24 Discharged From [facility] Medical History Atherosclerotic cardiovascular disease Emphysema lung Personal history of nicotine dependence Tubular adenoma of colon Cocaine abuse Lactic acid acidosis Hypoxemia Opioid overdose COVID-19 COPD (chronic obstructive pulmonary disease) History of pneumonia Positive colorectal cancer screening using Cologuard test Gout Essential hypertension Lymphopenia Mixed hyperlipidemia Pernicious anemia Lumbar degenerative disc disease GERD (gastroesophageal reflux disease) Surgical History History of colonoscopy History of esophagogastroduodenoscopy (EGD) History of surgery Status post surgical removal of malignant neoplasm of skin History of shoulder surgery History of arthroscopy of left knee History of total left knee replacement Family History Father Lung cancer Mother Chronic mental illness Alzheimer disease Maternal Grandmother Bone cancer Hypertension Paternal Grandmother Brain cancer Maternal Uncle Cancer Family/Other Chronic mental illness Substance use disorder Social History Household Members: Family Household Members Other:: 2 room mates Housing: House Alcohol intake: former Comment: refsued, wants to be indep Patient Tobacco Use Status: Former Tobacco user Tobacco use type: Cigarette Cigarettes Per Day: 10 e-Cigarette/Vaping Use: Never Used Second Hand Smoke Exposure: Yes Substance Use Type: Crack/Cocaine service: No Current occupational status: unemployed and disabled Cognitive needs: No Hearing needs: No Vision needs: Yes Questionnaire Thrive Questionnaire Date Thrive assessed: 12/19/24 EN-7 AMB Questionnaire EN-7 Date EN - 7 assessed: 08/21/24 Source: Developed by Drs. Shabbir Barreto, Stella Hammer, John Garcia and colleagues, with an educational herbert from [email or web address]. Review of Systems Const Denies headache(s) Eyes Denies loss of vision ENT Denies vertigo, Denies dizziness, Denies headache(s) and Denies sore throat Card Reports chest pain (Intermittently, radiating down left forearm), Denies leg edema, Denies lightheadedness, Reports orthopnea and Reports paroxysmal nocturnal dyspnea Resp Denies cough, Denies hemoptysis and Denies wheezing GI Denies abdominal pain, Denies melena, Denies constipation, Denies diarrhea and Denies vomiting Denies dysuria, Denies urinary frequency and Denies urinary urgency Neuro Denies Abnormal speech present, Denies vertigo, Denies dizziness, Denies headache(s) and Denies loss of vision Jimmy/Lymph Denies easy bleeding and Denies easy bruising Aller/Immun Denies wheezing Physical exam (Primary Care) Vital Signs: Last Vital Signs Temp 97.1 F 01/01/25 09:50 Pulse 96 01/01/25 09:50 BP 130/100 H 01/01/25 09:50 Pulse Ox 98 01/01/25 09:50 Oxygen Delivery Method Room Air 01/01/25 09:50 BMI result Body Mass Index 40.0 Tobacco/Smoking Status: Tobacco use Status Tobacco use date assessed 01/01/25 01/01/25 09:57 Patient Tobacco Use Status Former Tobacco user 01/01/25 09:57 Tobacco use type Cigarette 01/01/25 09:57 e-Cigarette/Vaping Use Never Used 01/01/25 09:57 Thrive Assessment: Date of Thrive Assessment Date Thrive assessed 12/19/24 01/01/25 09:57 Const General: healthy appearing, no acute distress, alert and awake Nutritional Appearance: well nourished Orientation/consciousness: oriented to person, oriented to place and oriented to time HENMT Ears: TM's normal bilaterally General nose exam: Normal nasal mucous membranes and turbinates present Eyes Conjunctivae: conjunctivae normal Sclerae: sclerae normal Pupils: Equal, round and reactive pupils present Neck Neck: Yes no lymphadenopathy and Yes no JVD Thyroid: Thyroid normal Carotids: no bruits Resp Effort & Inspection: normal respiratory effort and not tachypneic Auscultation: no crackles, no rales, no rhonchi and no wheezes Cardio Rate: regular rate Rhythm: regular rhythm Heart sounds: no murmurs and normal S1 and S2 GI Inspection: Yes obesity Palpation (GI): Soft to palpation, nontender, no hepatomegaly and no splenomegaly Auscultation: normal bowel sounds Skin General skin exam: no rashes or lesions noted and dry skin Neuro General: oriented to person, oriented to place and oriented to time Cranial nerves: Yes Equal, round and reactive pupils present Speech: No Abnormal speech present Gait exam (Neuro): Normal gait present Motor exam (neuro): no tremor noted Extrem Right upper extremity: full ROM Left upper extremity: full ROM Right lower extremity: full ROM; no edema Left lower extremity: full ROM; no edema Psych Mental Status: mental status grossly normal Speech and movement: Normal speech and movement present Affect: normal affect Attitude: cooperative Thought process: Normal thought process present Coding Level of Care Code TCM High MDM <= 14 days Diagnoses Precordial pain R07.2 Chest pain type: precordial pain Orthopnea R06.01 Morbid obesity E66.01 Family history of malignant neoplasm, unspecified Z80.9 Pulmonary emphysema, unspecified emphysema type J43.9 COPD type: emphysema Emphysema type: unspecified Hypertension, unspecified type I10 Hypertension type: unspecified PAF (paroxysmal atrial fibrillation) I48.0 Time Spent (min) 43 Assessment & Plan Assessment & Plan (1) Chest pain: Code(s): R07.9 - Chest pain, unspecified Category: Medical Qualifiers: Chest pain type: precordial pain Qualified Code(s): R07.2 - Precordial pain (2) Orthopnea: Code(s): R06.01 - Orthopnea Category: Medical (3) Morbid obesity: Code(s): E66.01 - Morbid (severe) obesity due to excess calories Category: Medical (4) Family history of malignant neoplasm, unspecified: Code(s): Z80.9 - Family history of malignant neoplasm, unspecified Category: Medical (5) COPD (chronic obstructive pulmonary disease): Code(s): J44.9 - Chronic obstructive pulmonary disease, unspecified Category: Medical Qualifiers: COPD type: emphysema Emphysema type: unspecified Qualified Code(s): J43.9 - Emphysema, unspecified (6) HTN (hypertension): Code(s): I10 - Essential (primary) hypertension Category: Medical Qualifiers: Hypertension type: unspecified Qualified Code(s): I10 - Essential (primary) hypertension (7) PAF (paroxysmal atrial fibrillation): Code(s): I48.0 - Paroxysmal atrial fibrillation Category: Medical Plan To address the patient's chest pain and dyspnea, supplemental oxygen is recommended for nocturnal use, and plans are in place for further evaluation by a employment security officer. Due to COPD, alternative stress testing may be considered rather than traditional methods. Continuation of anticoagulant therapy is necessary, and blood pressure monitoring at home is advised. Encouraged blood pressure medication compliance; maintain low-salt diet. Given the patient's family history, hematology referral is considered to assess further cancer-related risks. Collaboration with dietary services for weight management is a hogan component in managing his obesity and reducing cardiovascular risk. Patient was informed and verbally consented to the use of an ambient scribe for clinic note documentation during this visit. Orders: Referrals Genetics Referral Z80.9 - Family history of malignant neoplasm, unspecified Nutrition/Dietitian Referral E66.01 - Morbid (severe) obesity due to excess calories Medications: New [Home oxygen] As directed 2 L via nasal cannula for sleep 1 ea 0RF E66.01 - Morbid (severe) obesity due to excess calories, J44.9 - Chronic obstructive pulmonary disease, unspecified, R06.01 - Orthopnea Refilled indomethacin administer with food or milk 50 mg PO BID 10 days 20 caps 1RF
[2025-01-01 09:50] VITALS: BP 130/100; PULSE 96; TEMP 36.2; O2SAT 98; BMI 40.0
--- OUTSIDE RECORDS SUMMARY | 2025-01-01 09:54 | XMS_ITS | Clinical Summary ---
Author Organization [facility] Address [address] [place] [address] Care Team Providers Care Water Conservation Specialist Name Role Phone Yulissa Keyes MD Primary Care Provider [phone] Social History Tobacco Use Types Packs/Day Years [...] - 2023-2 5 season) 2024 Influenza Vaccine (Season Ended) [...] age to complete this topic Care Teams Water Conservation Specialist Relationship Specialty Start Date End Date Yulissa Keyes MD [address] [place] [address] , [address] [facility] Physician Associ D/B/A: [facility] OBEY Garcia PCP - General Internal Medicine 08/04/17
--- OUTSIDE RECORDS SUMMARY | 2025-01-01 09:54 | XMS_ITS | Encounter Summary ---
Author Organization [facility] Address [address] [place] [address] Care Team Providers Care Special Distribution Clerk Name Role Phone Pcp, No Primary Care Provider Unavailabl e Encounter Details Date Type Department Care Team (Late st Contact Info) Description 10/15/2023 Scanned Document [facility] [address] [facility] [address] [place] [id number] Radiology, Scan Social History Tobacco Use [...] on filedocumented in this encounter Care Teams Special Distribution Clerk Relationship Specialty Start Date End Date Pcp, No PCP - General General Medicine 12/06/23 documented as of this encounter
--- OUTSIDE RECORDS SUMMARY | 2025-01-01 09:54 | XMS_ITS | Clinical Summary ---
Author Organization [facility] Address [address] [place] [address] Care Team Providers Care Requirements Engineer Name Role Phone Pcp, No Primary [...] Vaccine 03/16/2025 Insurance MEDICAID OUT OF STATE [place] [id number] Care Teams Requirements Engineer Relationship Specialty Start Date End Date Pcp, No PCP - General General Medicine 12/06/23
[2025-01-01 10:00] VITALS: BP 152/108
== END 2025-01-01 12:38 | disposition home or self-care (01) ==
LOC: HO.HMCH 09:37
PROVIDERS: PCP Internal Medicine
DX: J43.9 Emphysema, unspecified (principal); E66.01 Morbid (severe) obesity due to excess calories; I48.0 Paroxysmal atrial fibrillation; Z68.41 Body mass index [BMI] 40.0-44.9, adult; R07.2 Precordial pain; R06.01 Orthopnea; Z80.9 Family history of malignant neoplasm, unspecified; I10 Essential (primary) hypertension

== ENCOUNTER → 2025-01-01 09:36 | Outpatient (BNVA) | payer OTHER, SELFPAY | PROVIDERS: PCP Internal Medicine | DX: R07.2 Precordial pain (principal); R06.01 Orthopnea; E66.01 Morbid (severe) obesity due to excess calories; Z68.41 Body mass index [BMI] 40.0-44.9, adult; J43.9 Emphysema, unspecified; I10 Essential (primary) hypertension; I48.0 Paroxysmal atrial fibrillation; Z79.01 Long term (current) use of anticoagulants; Z80.9 Family history of malignant neoplasm, unspecified | CPT/HCPCS: 99212 ==

== ENCOUNTER 2025-02-19 08:44 | Outpatient (AMB) | payer OTHER, SELFPAY ==
--- OUTSIDE RECORDS SUMMARY | 2025-02-19 08:57 | XMS_ITS | Clinical Summary ---
Author Organization [facility] Address [address] [place] [address] Care Team Providers Care Production Controller Name Role Phone Yulissa Keyes MD Primary Care Provider [phone] Social History Tobacco Use Types Packs/Day Years [...] 2023-2 5 season) 2024 Influenza Vaccine (#1) 2025 HIB Vaccines Aged Out No longer [...] age to complete this topic Care Teams Production Controller Relationship Specialty Start Date End Date Yulissa Keyes MD [address] [place] [address] , [address] [facility] Physician Associ D/B/A: [facility] OBEY Garcia PCP - General Internal Medicine 08/04/17
--- OUTSIDE RECORDS SUMMARY | 2025-02-19 08:57 | XMS_ITS | Encounter Summary ---
Author Organization [facility] Address [address] [place] [address] Care Team Providers Care Tax Commissioner Name Role Phone Pcp, No Primary Care Provider Unavailabl e Encounter Details Date Type Department Care Team (Late st Contact Info) Description 10/15/2023 Scanned Document [facility] 80 [facility] [address] [place] [phone] Radiology, Scan Social History Tobacco Use [...] on filedocumented in this encounter Care Teams Tax Commissioner Relationship Specialty Start Date End Date Pcp, No PCP - General General Medicine 12/06/23 documented as of this encounter
[2025-02-19 09:11] VITALS: BP 138/90; PULSE 94; O2SAT 95
--- NOTE | 2025-02-19 09:11 | A.OFFVIS_ITS ---
Vital Signs 02/19/25 09:11 Weight 310 lb 13.628 oz BP 138/90 H Blood Pressure Location Rt brachial Position Sitting Pulse 94 Pulse Source Pulse Oximeter Pulse Oximetry (%) 95 Oxygen Delivery Method Room Air Intake Visit Reasons: 6WM Allergies bee stings Allergy (Severe, Verified 02/19/25 09:37) Anaphylaxis Medication List - Last Reconciled 02/19/25 by Sade Gatica LPN albuterol sulfate 90 mcg/actuation (Ventolin HFA) 2 puffs inhalation Q4-6H PRN albuterol sulfate 2.5 mg (3 mL) inhalation TID PRN amlodipine 10 mg PO DAILY apixaban (Eliquis) 5 mg PO BID aripiprazole 15 mg PO DAILY aspirin (Aspirin Childrens) 81 mg PO DAILY atorvastatin 40 mg PO BEDTIME blood pressure monitor (Blood Pressure Kit) As directed bupropion HCl XL 150 mg PO DAILY buspirone 10 mg PO TID carisoprodol 350 mg PO TID PRN 30 days chlorthalidone 25 mg PO DAILY 90 days cholecalciferol (vitamin D3) 50 mcg PO DAILY clonazepam 2 mg PO TID dronedarone (Multaq) 400 mg PO BID fenofibrate 160 mg PO DAILY 90 days folic acid 1 mg PO DAILY furosemide 40 mg PO DAILY PRN Grab bar As directed [hand rails As directed] [Home oxygen As directed 2 L via nasal cannula for sleep] hydroxyzine pamoate 25 mg PO BID PRN indomethacin 50 mg PO BID 10 days lisinopril 40 mg PO DAILY meclizine 25 mg PO BID PRN 5 days miscellaneous medical supply (Blood Pressure Cuff) As directed oxcarbazepine 600 mg PO BID oxcarbazepine 300 mg PO BID pantoprazole 40 mg PO QAM prazosin 2 mg PO BEDTIME Shower Chair As directed umeclidinium-vilanterol 62.5-25 mcg/actuation (Anoro Ellipta) 1 ea inhalation DAILY zolpidem 10 mg PO BEDTIME [facility] Medical History (Updated 02/19/25 @ 09:59 by Yulissa Keyes MD) Mild major depression Atherosclerotic cardiovascular disease Emphysema lung Personal history of nicotine dependence Tubular adenoma of colon Cocaine abuse Lactic acid acidosis Hypoxemia Opioid overdose COVID-19 COPD (chronic obstructive pulmonary disease) History of pneumonia Positive colorectal cancer screening using Cologuard test Gout Essential hypertension Lymphopenia Mixed hyperlipidemia Pernicious anemia Lumbar degenerative disc disease GERD (gastroesophageal reflux disease) Surgical History History of colonoscopy History of esophagogastroduodenoscopy (EGD) History of surgery Status post surgical removal of malignant neoplasm of skin History of shoulder surgery History of arthroscopy of left knee History of total left knee replacement Family History Father Lung cancer Mother Chronic mental illness Alzheimer disease Maternal Grandmother Bone cancer Hypertension Paternal Grandmother Brain cancer Maternal Uncle Cancer Family/Other Chronic mental illness Substance use disorder Social History Household Members: Family Household Members Other:: 2 room mates Housing: House Alcohol intake: former Comment: refsued, wants to be indep Patient Tobacco Use Status: Former Tobacco user Tobacco use type: Cigarette Cigarettes Per Day: 10 e-Cigarette/Vaping Use: Never Used Second Hand Smoke Exposure: Yes Substance Use Type: Crack/Cocaine service: No Current occupational status: unemployed and disabled Cognitive needs: No Hearing needs: No Vision needs: Yes Physical Exam Vital Signs: Last Vital Signs Pulse 94 02/19/25 09:11 BP 138/90 H 02/19/25 09:11 Pulse Ox 95 02/19/25 09:11 Oxygen Delivery Method Room Air 02/19/25 09:11 Office Procedures 6 Minute Walk Time:: 09:00 SPO2 % at rest: 96 Pulse at rest: 91 SPO2 % during excercise: 92 Pulse during excercise: 105 SPO2 % after excercise: 95 Pulse after excercise: 94 Distance in yards walked: 250 Moni Score: 7 Performance Observations:: Froilan walked on level ground with out assistance, he walked on room air the entire walk. He maintained his SPO2 92-96%, no supplemental O2 needed. [id number] - 6 Minute Walk Assessment & Plan Assessment & Plan (1) CUTLER (dyspnea on exertion): Code(s): R06.09 - Other forms of dyspnea Category: Medical Plan 6 MWT Orders: Orders AMB 6 minute walk Today R06.09 - Other forms of dyspnea Coding Level of Care Code Established Pt Est Pt Level 1 (43540) Patient Type Established Diagnoses CUTLER (dyspnea on exertion) R06.09 CPT Codes Coding ([id number]) Comment NURSE VISIT ONLY
[2025-02-19 09:14] VITALS: PULSE 91; O2SAT 96
== END 2025-02-19 09:08 | disposition home or self-care (01) ==
LOC: HO.HPS 08:45
PROVIDERS: PCP Internal Medicine; Visit Provider Internal Medicine Pulmonary Disease
DX: R06.09 Other forms of dyspnea (principal)
CPT/HCPCS: 94618

== ENCOUNTER → 2025-02-19 08:44 | Outpatient (BNVA) | payer OTHER, SELFPAY | PROVIDERS: PCP Internal Medicine; Visit Provider Internal Medicine Pulmonary Disease | DX: R06.09 Other forms of dyspnea (principal); F33.1 Major depressive disorder, recurrent, moderate; I11.9 Hypertensive heart disease without heart failure; I48.0 Paroxysmal atrial fibrillation; D51.0 Vitamin B12 deficiency anemia due to intrinsic factor deficiency; J43.9 Emphysema, unspecified; I21.4 Non-ST elevation (NSTEMI) myocardial infarction; Z79.01 Long term (current) use of anticoagulants; Z79.899 Other long term (current) drug therapy; Z13.31 Encounter for screening for depression; Z13.30 Encounter for screening examination for mental health and behavioral disorders, unspecified | CPT/HCPCS: 94618; 96127; 99211; 99212 ==

== ENCOUNTER 2025-02-19 09:10 | Outpatient (AMB) | payer OTHER, SELFPAY ==
--- NOTE | 2025-02-19 09:19 | A.OFFPC_ITS ---
Vital Signs 02/19/25 09:21 Height 6 ft 2 in Weight 311 lb BMI 39.9 BP 180/102 H Blood Pressure Location Lt brachial Position Sitting Pulse 88 Pulse Source Pulse Oximeter Pulse Oximetry (%) 96 Oxygen Delivery Method Room Air Intake Visit Reasons: bp,depression,chronic pain Intake Note: Patient here for a follow up BP, Depression, Chronic pain Flight Operations Coordinator Required: No Accompanied by: Self / Same As Patient Allergies bee stings Allergy (Severe, Verified 02/19/25 09:37) Anaphylaxis Medication List - Last Reconciled 02/19/25 by Yulissa Keyes MD albuterol sulfate 90 mcg/actuation (Ventolin HFA) 2 puffs inhalation Q4-6H PRN albuterol sulfate 2.5 mg (3 mL) inhalation TID PRN amlodipine 10 mg PO DAILY apixaban (Eliquis) 5 mg PO BID aripiprazole 15 mg PO DAILY aspirin (Aspirin Childrens) 81 mg PO DAILY atorvastatin 40 mg PO BEDTIME blood pressure monitor (Blood Pressure Kit) As directed bupropion HCl XL 150 mg PO DAILY buspirone 10 mg PO TID carisoprodol 350 mg PO TID PRN 30 days chlorthalidone 25 mg PO DAILY 90 days cholecalciferol (vitamin D3) 50 mcg PO DAILY clonazepam 2 mg PO TID dronedarone (Multaq) 400 mg PO BID fenofibrate 160 mg PO DAILY 90 days folic acid 1 mg PO DAILY furosemide 40 mg PO DAILY PRN Grab bar As directed [hand rails As directed] [Home oxygen As directed 2 L via nasal cannula for sleep] hydroxyzine pamoate 25 mg PO BID PRN indomethacin 50 mg PO BID 10 days lisinopril 40 mg PO DAILY meclizine 25 mg PO BID PRN 5 days miscellaneous medical supply (Blood Pressure Cuff) As directed oxcarbazepine 600 mg PO BID oxcarbazepine 300 mg PO BID pantoprazole 40 mg PO QAM prazosin 2 mg PO BEDTIME Shower Chair As directed umeclidinium-vilanterol 62.5-25 mcg/actuation (Anoro Ellipta) 1 ea inhalation DAILY zolpidem 10 mg PO BEDTIME Tobacco use date assessed: 01/01/25 Dental Screening Dental Screen Date: 08/21/24 HPI HPI Comments History of Present Illness Details The patient is a 54-year-old male presenting with follow-up on his chronic conditions, including hypertension and depression. Patient hospitalized in September due to non-STEMI and atrial fibrillation with rapid ventricular response. Hypertension has been a persistent issue, with elevated blood pressure noted during today's visit. He is currently on amlodipine 10 mg and lisinopril 40 mg for management. Blood pressure will be rechecked in three weeks by the nurse navigator. The patient has a history of major depressive disorder with a PHQ-9 score of 17, indicating moderate to severe depression. He is under psychiatric care and takes bupropion and Abilify for depression, and clonazepam for anxiety. Atrial fibrillation is managed with Eliquis for chronic anticoagulation. He had a recent hospitalization in September for this condition. The patient has a history of COPD and follows with pulmonology. A CT lung cancer screening was ordered but not completed, and it has been reordered. Pernicious anemia is being monitored with orders for vitamin B12 and folic acid levels. He is obese with a BMI of 39.9 and has been advised to pursue diet and exercise to achieve a BMI goal of less than 30. The patient has a history of congestive heart failure with a recent echocardiogram in September showing an ejection fraction of 55 to 60%. Preventative care includes a repeat colonoscopy due to a previous finding of tubular adenoma in 2020. [facility] Medical History (Updated 02/19/25 @ 09:59 by Yulissa Keyes MD) Mild major depression Atherosclerotic cardiovascular disease Emphysema lung Personal history of nicotine dependence Tubular adenoma of colon Cocaine abuse Lactic acid acidosis Hypoxemia Opioid overdose COVID-19 COPD (chronic obstructive pulmonary disease) History of pneumonia Positive colorectal cancer screening using Cologuard test Gout Essential hypertension Lymphopenia Mixed hyperlipidemia Pernicious anemia Lumbar degenerative disc disease GERD (gastroesophageal reflux disease) Surgical History History of colonoscopy History of esophagogastroduodenoscopy (EGD) History of surgery Status post surgical removal of malignant neoplasm of skin History of shoulder surgery History of arthroscopy of left knee History of total left knee replacement Family History Father Lung cancer Mother Chronic mental illness Alzheimer disease Maternal Grandmother Bone cancer Hypertension Paternal Grandmother Brain cancer Maternal Uncle Cancer Family/Other Chronic mental illness Substance use disorder Social History Household Members: Family Household Members Other:: 2 room mates Housing: House Alcohol intake: former Comment: refsued, wants to be indep Patient Tobacco Use Status: Former Tobacco user Tobacco use type: Cigarette Cigarettes Per Day: 10 e-Cigarette/Vaping Use: Never Used Second Hand Smoke Exposure: Yes Substance Use Type: Crack/Cocaine service: No Current occupational status: unemployed and disabled Cognitive needs: No Hearing needs: No Vision needs: Yes Questionnaire PHQ-9 Over the last 2 weeks, how often have you been bothered by any of the following problems? 1. Little interest or pleasure in doing things: nearly every day 2. Feeling down, depressed, or hopeless: more than half the days 3. Trouble falling or staying asleep, or sleeping too much: more than half the days 4. Feeling tired or having little energy: more than half the days 5. Poor appetite or overeating: more than half the days 6. Feeling bad about yourself - or that you are a failure or have let yourself or your family down: nearly every day 7. Trouble concentrating on things, such as reading the newspaper or watching television: nearly every day 8. Moving or speaking so slowly that other people could have noticed. Or the opposite - being so fidgety or restless that you have been moving around a lot more than usual: not at all 9. Thoughts that you would be better off or of hurting yourself in some way: not at all Total score: 17 Depression Screening Interpretation: Positive (no suicidal thoughts) Depression Screening Follow-up: Existing condition, In treatment, Community Mental Health Worker F/U and Follow-up Visit Requested Depression Screening Done: Yes 49356 - PHQ-9 Billing: Yes Source: Developed by Drs. Shabbir Barreto, Stella Hammer, John Garcia and colleagues, with an educational herbert from [employer]. Thrive Questionnaire Date Thrive assessed: 12/19/24 I am a: Patient What is your living situation today?: I have a steady place to live Within the past 12 months, did the food you bought not last and you didn't have the money to get more?: I choose not to answer this question Within the past 12 months, did you worry whether your food would run out before you got money to buy more?: I choose not to answer this question Do you have trouble paying for medicines?: No Do you have trouble getting transportation to medical appointments?: No Do you have trouble paying your heating and electricity bill?: I choose not to answer this question Do you have trouble taking care of your child, family member or friend?: No Do you have trouble with day-to-day activities such as bathing, preparing meals, shopping, managing finances, etc.?: Yes Are you currently unemployed and looking for a job?: No Are you interested in more education?: No Please select the resources that you would like help with: None Currently or been in a relationship where the following occur: No concerns reported THRIVE Score: 0 AUDIT C Alcohol Use Questionnaire (AUDIT-C) 1. How often do you have a drink containing alcohol?: Never Total Score: 0 EN-7 AMB Questionnaire EN-7 Date EN - 7 assessed: 02/19/25 Feeling nervous, anxious, or on edge: 2 = More than half the days Not being able to stop or control worryin = More than half the days Worrying too much about different things: 1 = Several days Trouble relaxin = Nearly every day Being so restless that it is hard to sit still: 2 = More than half the days Becoming easily annoyed or irritable: 1 = Several days Feeling afraid as if something awful might happen: 0 = Not at all Total EN-7 score (0-4 normal; 5-9 mild; 10-14 moderate; 15-21 severe): 11 Source: Developed by Drs. Shabbir Barreto, Stella Hammer, John Garcia and colleagues, with an educational herbert from [employer]. EN-7 Assessment Billing EN-7 Assessment Tool: EN-7 Assessment 95050 Review of Systems Const All systems reviewed & are unremarkable except as noted in HPI and below Card Denies chest pain at rest, Denies chest pain with activity, Denies edema, Denies irregular heart rhythm, Denies claudication, Denies dyspnea, Denies dyspnea on exertion, Denies orthopnea, Denies paroxysmal nocturnal dyspnea and Denies slow heart rate Resp Denies cough, Denies dyspnea and Denies dyspnea on exertion GI Denies abdominal pain, Denies change in bowel habits, Denies excessive flatus, Denies nausea and Denies vomiting Physical exam (Primary Care) Vital Signs: Last Vital Signs Pulse 88 02/19/25 09:21 BP 180/102 H 02/19/25 09:21 Pulse Ox 96 02/19/25 09:21 Oxygen Delivery Method Room Air 02/19/25 09:21 BMI result Body Mass Index 39.9 BMI Assessment/Plan discussion: High BMI High, discussed plan: lifestyle, weight reduction, dietary and physical activity Tobacco/Smoking Status: Tobacco use Status Tobacco use date assessed 01/01/25 02/19/25 09:26 Patient Tobacco Use Status Former Tobacco user 02/19/25 09:26 Tobacco use type Cigarette 02/19/25 09:26 e-Cigarette/Vaping Use Never Used 02/19/25 09:26 PHQ-9: PHQ-9 Score PHQ-9: Total score 12 02/19/25 09:26 Depression Screening Interpretation: Positive (no suicidal thoughts) Depression Screening Follow-up: Existing condition, In treatment, Community Mental Health Worker F/U and Follow-up Visit Requested Thrive Assessment: Date of Thrive Assessment Date Thrive assessed 12/19/24 02/19/25 09:26 Currently or been in a relationship where the following occur: No concerns reported Resp Effort & Inspection: normal respiratory effort Auscultation: clear to auscultation bilaterally Cardio Jugular venous distension: no JVD Rate: regular rate Rhythm: regular rhythm Heart sounds: S1 normal heart sound present and S2 normal heart sound present Extrem General: Yes full ROM Coding Level of Care Code Est Pt Level 4 (26858) Complex EM visit Add On G2211 Diagnoses Moderate recurrent major depression F33.1 Hypertension, unspecified type I10 Hypertension type: unspecified Diastolic dysfunction I51.89 PAF (paroxysmal atrial fibrillation) I48.0 Pernicious anemia D51.0 Pulmonary emphysema, unspecified emphysema type J43.9 COPD type: emphysema Emphysema type: unspecified Non-ST elevation GA (NSTEMI) I21.4 Additional Codes PHQ-9 - 97933 - PHQ-9 Billing: Yes ([id number]) EN-7 Assessment Billing - EN-7 Assessment Tool: EN-7 Assessment 19728 ([id number]) Time Spent (min) 25 Assessment & Plan Assessment & Plan (1) Moderate recurrent major depression: Code(s): F33.1 - Major depressive disorder, recurrent, moderate Category: Medical (2) HTN (hypertension): Code(s): I10 - Essential (primary) hypertension Category: Medical Qualifiers: Hypertension type: unspecified Qualified Code(s): I10 - Essential (primary) hypertension (3) Diastolic dysfunction: Code(s): I51.89 - Other ill-defined heart diseases Category: Medical (4) PAF (paroxysmal atrial fibrillation): Code(s): I48.0 - Paroxysmal atrial fibrillation Category: Medical (5) Pernicious anemia: Code(s): D51.0 - Vitamin B12 deficiency anemia due to intrinsic factor deficiency Category: Medical (6) COPD (chronic obstructive pulmonary disease): Code(s): J44.9 - Chronic obstructive pulmonary disease, unspecified Category: Medical Qualifiers: COPD type: emphysema Emphysema type: unspecified Qualified Code(s): J43.9 - Emphysema, unspecified (7) Non-ST elevation GA (NSTEMI): Code(s): I21.4 - Non-ST elevation (NSTEMI) myocardial infarction Category: Medical Plan The patient will continue with his current medication regimen, including amlodipine and lisinopril for hypertension, and bupropion, Abilify, and clonazepam for depression and anxiety. Blood pressure will be rechecked in three weeks by the nurse navigator to monitor hypertension management. For atrial fibrillation, the patient will continue on Eliquis for anticoagulation, with follow-up care coordinated with cardiology. A repeat colonoscopy is recommended due to the previous finding of tubular adenoma. The patient is advised to adhere to a diet and exercise plan to address obesity, aiming for a BMI of less than 30. Vitamin and folic acid levels will be monitored to manage pernicious anemia. A CT lung cancer screening has been reordered to ensure completion. I discussed with the patient the importance of adhering to his medication regimen for hypertension and depression management. We reviewed the need for a repeat colonoscopy due to the previous finding of tubular adenoma and the importance of completing the CT lung cancer screening. I emphasized the benefits of diet and exercise in managing obesity and reducing cardiovascular risk. Orders: Orders Comprehensive [place]. Panel Fast Today I10 - Essential (primary) hypertension Vitamin B12 and Folate Today E53.8 - Deficiency of other specified B group vitamins CT lung screening Today J43.9 - Emphysema, unspecified Complete Blood Count Auto Diff Today D64.9 - Anemia, unspecified Lipid Panel Today E78.5 - Hyperlipidemia, unspecified Vitamin D 25-OH Total Today E55.9 - Vitamin D deficiency, unspecified IRON PROFILE Today D64.9 - Anemia, unspecified Referrals Open Access Screening Colonoscopy Referral Z12.12 - Encounter for screening for malignant neoplasm of rectum Patient Instructions: - Continue taking all prescribed medications as directed. - Return for blood pressure check in three weeks. - Schedule and complete the repeat colonoscopy. - Follow the diet and exercise plan to help reduce weight. - Complete the CT lung cancer screening as ordered.
[2025-02-19 09:21] VITALS: BP 180/102; PULSE 88; O2SAT 96; BMI 39.9
== END 2025-02-19 09:54 | disposition home or self-care (01) ==
LOC: HO.HMCH 09:10
PROVIDERS: PCP Internal Medicine; Visit Provider Internal Medicine
DX: I48.0 Paroxysmal atrial fibrillation (principal); F33.1 Major depressive disorder, recurrent, moderate; J43.9 Emphysema, unspecified; I25.2 Old myocardial infarction; I10 Essential (primary) hypertension; I51.89 Other ill-defined heart diseases; D51.0 Vitamin B12 deficiency anemia due to intrinsic factor deficiency

== ENCOUNTER 2025-03-07 09:12 | Outpatient (REF) | payer OTHER, SELFPAY ==
[2025-03-07 09:25] LABS: MANUAL DIFF FLAG NO
--- OUTSIDE RECORDS SUMMARY | 2025-03-07 09:42 | XMS_ITS | Clinical Summary ---
Author Organization [facility] Address [address] [place] [address] Care Team Providers Care Hardwood Floor Layer Name Role Phone Yulissa Keyes MD Primary Care Provider [phone] Social History Tobacco Use Types Packs/Day Years [...] Vaccine ( - 2023-2 5 season) 2024 Depression Screening 08/16/2024 Influenza Vaccine (#1) 2025 HIB Vaccines Aged [...] age to complete this topic Care Teams Hardwood Floor Layer Relationship Specialty Start Date End Date Yulissa Keyes MD [address] [facility] , [address] [facility] Physician Associ D/B/A: [facility]os In Internal Medicine OBEY Garcia PCP - General Internal Medicine 08/04/17
--- OUTSIDE RECORDS SUMMARY | 2025-03-07 09:42 | XMS_ITS | Encounter Summary ---
Author Organization [facility] Address [address] [place] [address] Care Team Providers Care Intern Architect Name Role Phone Pcp, No Primary Care Provider Unavailabl e Encounter Details Date Type Department Care Team (Late st Contact Info) Description 10/15/2023 Scanned Document [facility] [address] [facility] [address] [place] [phone] Radiology, Scan Social History Tobacco Use [...] on filedocumented in this encounter Care Teams Intern Architect Relationship Specialty Start Date End Date Pcp, No PCP - General General Medicine 12/06/23 documented as of this encounter
[2025-03-07 09:44] LABS: Hematocrit 43.1 % (42.0-52.0); Hemoglobin 14.1 g/dl (14.0-18.0); Imm Gran Abs Auto 0.11 X10*3/uL (0.00-0.03); Imm Gran Pct Auto 1.0 % (0.0-0.4); Lymphocytes Absolute Auto 2.5 X10*3/uL (1.2-4.9); Mean Corpuscular HGB Conc 32.7 g/dl (31.0-36.0); Mean Corpuscular Hemoglobin 28.8 pg (27.0-33.0); Mean Corpuscular Volume 88.0 fL (80.0-98.0); NRBC Abs Auto 0.000 X10*3/uL (0.0-0.012); NRBC Pct Auto 0.0 /100WBC (0.0-0.2); Platelet Count 323 X10*3/uL (160-400); Red Blood Count 4.90 X10*6/uL (4.60-5.80); White Blood Count 11.2 X10*3/uL (4.8-10.8)
[2025-03-07 10:29] LABS: Alanine Aminotransferase 41 U/L (0-40); Albumin Level 4.7 g/dL (3.5-5.0); Alkaline Phosphatase 53 U/L (39-117); Anion Gap 14 (12-20); Aspartate Amino Transferase 27 U/L (5-37); Blood Urea Nitrogen 16 mg/dL (9-16); Calcium 9.4 mg/dL (8.4-10.2); Carbon Dioxide 25 mmol/L (22-29); Chloride 105 mmol/L (96-108); Cholesterol 182 mg/dL (<200); Estimated Glomerular Filt Rate > 60; HDL Cholesterol 35 mg/dL (>40); Iron 70 mcg/dL (45-160); Percent Iron Saturation 22 % (15-50); Potassium 4.2 mmol/L (3.3-5.1); Sodium 140 mmol/L (135-145); Total Iron Binding Capacity 322 mcg/dL (228-428); Total Protein 7.4 g/dL (6.5-8.0); Triglycerides 306 mg/dL (<150); Unsaturated Iron Binding 252 ug/dL
[2025-03-07 10:55] LABS: Folate 16.5 ng/mL (> or = 4.0); Vitamin B12 205 pg/mL (200-900)
== END 2025-03-07 09:13 | disposition home or self-care (01) ==
LOC: HO.LAB 09:12
PROVIDERS: PCP Internal Medicine; Visit Provider Internal Medicine
DX: E66.01 Morbid (severe) obesity due to excess calories (principal); E53.8 Deficiency of other specified B group vitamins; I10 Essential (primary) hypertension; E55.9 Vitamin D deficiency, unspecified; E78.5 Hyperlipidemia, unspecified; D64.9 Anemia, unspecified; Z68.39 Body mass index [BMI] 39.0-39.9, adult
CPT/HCPCS: 36415; 80053; 80061; 82306; 82607; 82746; 83540; 85025; 97802

== ENCOUNTER 2025-03-07 09:37 | Outpatient (AMB) | payer OTHER, SELFPAY ==
--- OUTSIDE RECORDS SUMMARY | 2025-03-07 10:11 | XMS_ITS ---
Author Name [facility] Organization Unknown Allergies Allergen Reaction Severity Comment Documented Date Source Statu s BEE VENOM ANAPHYLAXIS 01/04/2024 CCT active Problems Problem Status Onset Date Problem Type Date of Resoluti on Source Coronary artery disease, unspecified vessel or lesion type, unspecified whether angina present, unspecified whether [place] or transplanted heart active [facility] Chest pain, precordial active En[facility]DiagnosisAct [facility] Encounters Encounter Type Encounter Reason Primary Diagnosis Location Date Ambulatory Precordial pain Precordial pain [facility] 01/04/2024 Care Team Organization Name Specialty Phone Email Start Date End Da te [facility] PCP Batch Plant Operator 01/04/2024 11/01/2024 [facility] NO PCP Primary Care 12/06/2023 [facility] 10/15/2023
[2025-03-07 10:21] VITALS: BMI 39.0
--- NOTE | 2025-03-07 10:21 | A.OFFVIS_ITS ---
VS Expanded 03/07/25 10:21 03/07/25 11:02 Height 6 ft 2 in 6 ft 2 in Weight 304 lb 0.279 oz 304 lb BMI 39.0 39.0 Intake Visit Reasons: Morbid (severe) obesity due to excess calories Allergies bee stings Allergy (Severe, Verified 02/19/25 09:37) Anaphylaxis Nutrition Presentation Details: Pt presents for MNT for morbid obesity Pt reports working on walking daily at the mall, started a couple of weeks ago and plans to participate in swimming at the [employer] Beverage:Pt reports cutting out soda and having juice a gallon cranberry juice /d mixed with water (360 g carbs) typical no breakfast 11-12: ham/cheese sand, cranberry juice 6 pm chicken licha , water, juice working on cutting out chips/fries, salted food items food frequency fruits: 0-3 /day vegetables: 3 x/wk milk 3 c/d etoh;denies BS Monitoring Most Recent Diabetes Results: Cholesterol, (<200) 182 mg/dL Today HDL Cholesterol, (>40) 35 mg/dL L Today Triglycerides, (<150) 306 mg/dL H Today Creatinine, (0.5-1.4) 1.05 mg/dL Today BUN, (9-16) 16 mg/dL Today Sodium, (135-145) 140 mmol/L Today Potassium, (3.3-5.1) 4.2 mmol/L Today Chloride, (96-108) 105 mmol/L Today Carbon Dioxide, (22-29) 25 mmol/L Today Calcium, (8.4-10.2) 9.4 mg/dL Today AST, (5-37) 27 U/L Today ALT, (0-40) 41 U/L H Today Total Protein, (6.5-8.0) 7.4 g/dL Today Albumin, (3.5-5.0) 4.7 g/dL Today BDC-Criflei-Nh.Jeor Equation Height: 6 ft 2 in Weight: 304 lb Resting Metabolic Rate: 2286.69 Calculated Activity Level: Mild Activity Calories Needed to Maintain Weight: 3144.20 Diagnosis Nutrition problem #1: food nutri know defi As related to (etiology) #1: diagnosis As evidenced by (sign/symptom) #1: high BMI (39 on 03/09) Monitoring/Goals Nutrition problem monitoring: level of knowledge/skill, total PRO intake, total CHO intake, weight and oral fluids Nutrition goal/outcome: wt loss 5lbs in 2 months Outcome progress: verbalized understanding Learning/Education Readiness to learn: good Stages of change: preparation [facility] Medical History (Updated 02/19/25 @ 09:59 by Yulissa Keyes MD) Mild major depression Atherosclerotic cardiovascular disease Emphysema lung Personal history of nicotine dependence Tubular adenoma of colon Cocaine abuse Lactic acid acidosis Hypoxemia Opioid overdose COVID-19 COPD (chronic obstructive pulmonary disease) History of pneumonia Positive colorectal cancer screening using Cologuard test Gout Essential hypertension Lymphopenia Mixed hyperlipidemia Pernicious anemia Lumbar degenerative disc disease GERD (gastroesophageal reflux disease) Surgical History History of colonoscopy History of esophagogastroduodenoscopy (EGD) History of surgery Status post surgical removal of malignant neoplasm of skin History of shoulder surgery History of arthroscopy of left knee History of total left knee replacement Family History Father Lung cancer Mother Chronic mental illness Alzheimer disease Maternal Grandmother Bone cancer Hypertension Paternal Grandmother Brain cancer Maternal Uncle Cancer Family/Other Chronic mental illness Substance use disorder Social History Household Members: Family Household Members Other:: 2 room mates Housing: House Alcohol intake: former Comment: refsued, wants to be indep Patient Tobacco Use Status: Former Tobacco user Tobacco use type: Cigarette Cigarettes Per Day: 10 e-Cigarette/Vaping Use: Never Used Second Hand Smoke Exposure: Yes Substance Use Type: Crack/Cocaine service: No Current occupational status: unemployed and disabled Cognitive needs: No Hearing needs: No Vision needs: Yes Assessment & Plan Assessment & Plan (1) Morbid obesity: Code(s): E66.01 - Morbid (severe) obesity due to excess calories Category: Medical Plan: Wt: 138 Kg ( 03/09 ) Est kcal needs as per MSJ: 3100 (40% carb, 30% protein/fat) Est fluid needs as per 25-30 ml/d: 4100 Est prot per day as per 1 g/kg bw: 140 Recommend fiber intake : 8-10 g per day and gradually increase to 25-28 g per day for women and 35-38 g for men or as tolerated Recommend sodium intake per day : less than 2300 mg Educated patient on: ( R = reviewed V = verbalizes understanding N/R = needs review N/A = not applicable * Food sources of carbohydrate, adequate serving sizes and its role in various health conditions: R V N/R * Differences between complex carbohydrates a simple carbohydrates, role of fiber in diet: R * Lean protein sources of foods: R * Differences between types of fats and role in diet (mono on saturated fat fatty acids, saturated fatty acids, trans fats): R V N/R * Food sources of sodium in salt and healthy modifications for heart health in kidney health: R * Vitamins and minerals: R V N/R * Healthy plate method concept: R * Physical activity: Benefits a precaution: R Patient Instructions: Continue with physical activity as established, and continue working on reducing foods high in salt (chips, sauces, added salt, pastries) keep hydrated by having water (choose low sugar beverages- see list of possible options) Choose a baked /steamed starchy vegetable/vegetables over starches, following healthy plate method, 5 times a week at dinner Coding Level of Care Code Nutr Indiv Intake (19769) Diagnoses Morbid obesity E66.01 Time Spent (min) 30
[2025-03-07 11:02] VITALS: BMI 39.0
== END 2025-03-07 10:48 | disposition home or self-care (01) ==
LOC: HO.ENCR 09:38
PROVIDERS: PCP Internal Medicine; Visit Provider Dietitian, Registered
DX: E66.01 Morbid (severe) obesity due to excess calories (principal)

== ENCOUNTER 2025-06-22 07:24 | Emergency (ER) | payer OTHER, SELFPAY ==
--- NOTE | ~2025-06-22 | XR_ITS ---
EXAMINATION: XR CHEST CLINICAL INFORMATION: sob, cough. cp COMPARISON: 10/18/2024, 09/21/2024. TECHNIQUE: Frontal view of the chest was obtained. FINDINGS: Mildly elevated right hemidiaphragm, unchanged. The cardiac, hilar, and mediastinal contours are normal. The lungs are clear bilaterally. No pneumothorax or effusion. No focal osseous or soft tissue abnormality. XR/XR chest 1V IMPRESSION: No active pulmonary disease. No interval change from 10/18/2024. Electronically signed by: Ilia Wilson MD 06/22/2025 09:30 AM [facility]
--- NOTE | 2025-06-22 07:27 | ECG_ITS ---
Test Reason : cp Blood Pressure : */* mmHG Vent. Rate : 96 BPM Atrial Rate : 96 BPM P-R Int : 136 ms QRS Dur : 90 ms QT Int : 344 ms P-R-T Axes : 39 -15 110 degrees QTcB Int : 434 ms Normal sinus rhythm ST & T wave abnormality, consider lateral ischemia Abnormal ECG When compared with ECG of 18-Dec-2024 14:20, No significant change was found Referred By: Generic ED Physician Electronically Signed By: Demian Hsu
[2025-06-22 07:37] VITALS: BP 180/118; PULSE 92; RESP 30; TEMP 36.6; O2SAT 94; BMI 38.5
[2025-06-22 08:00] VITALS: BP 176/110; PULSE 93; RESP 33
[2025-06-22 08:25] LABS: MANUAL DIFF FLAG NO
[2025-06-22 08:29] LABS: Hematocrit 42.3 % (42.0-52.0); Hemoglobin 13.8 g/dl (14.0-18.0); Imm Gran Abs Auto 0.09 X10*3/uL (0.00-0.03); Imm Gran Pct Auto 1.4 % (0.0-0.4); Lymphocytes Absolute Auto 1.3 X10*3/uL (1.2-4.9); Mean Corpuscular HGB Conc 32.6 g/dl (31.0-36.0); Mean Corpuscular Hemoglobin 29.2 pg (27.0-33.0); Mean Corpuscular Volume 89.6 fL (80.0-98.0); NRBC Abs Auto 0.000 X10*3/uL (0.0-0.012); NRBC Pct Auto 0.0 /100WBC (0.0-0.2); Platelet Count 293 X10*3/uL (160-400); Red Blood Count 4.72 X10*6/uL (4.60-5.80); White Blood Count 6.4 X10*3/uL (4.8-10.8)
[2025-06-22 08:30] LABS: COVID-19 Test Positive (Negative); IDNOW Serial# 58CA691E
[2025-06-22 08:32] LABS: Alanine Aminotransferase 30 U/L (0-40); Albumin Level 4.1 g/dL (3.5-5.0); Alkaline Phosphatase 59 U/L (39-117); Anion Gap 16 (12-20); Aspartate Amino Transferase 21 U/L (5-37); Blood Urea Nitrogen 10 mg/dL (9-16); Calcium 10.0 mg/dL (8.4-10.2); Carbon Dioxide 24 mmol/L (22-29); Chloride 104 mmol/L (96-108); Creatinine Clr Calc Pharmacy 157.0; Estimated Glomerular Filt Rate > 60; Potassium 4.4 mmol/L (3.3-5.1); Sodium 140 mmol/L (135-145); Total Protein 6.9 g/dL (6.5-8.0)
[2025-06-22 08:38] LABS: IDNOW Serial# 55D5AD1C; Influenza B2 Negative (Negative)
[2025-06-22 08:40] LABS: Troponin-I High Sensitivity 7.9 ng/L (<3.5-35.0)
--- OUTSIDE RECORDS SUMMARY | 2025-06-22 08:57 | XMS_ITS | Clinical Summary ---
Author Organization [facility] Address [address] [place] [address] Care Team Providers Care Storage Battery Charger Name Role Phone Pcp, No Primary Care [...] Vaccine (1 of 2) 2019 Influenza Vaccine 03/16/2025 COVID-19 Vaccine (1 - 2023- season) 2025 RSV Vaccine 50 years and old er and Patients (1 - 1-dose 75+ series) 2044 Insurance MEDICAID OUT OF STATE [facility] [place] Care Teams Storage Battery Charger Relationship Specialty Start Date End Date Pcp, No PCP - General General Medicine 12/06/23
--- OUTSIDE RECORDS SUMMARY | 2025-06-22 08:57 | XMS_ITS | Encounter Summary ---
Author Organization [facility] Address [address] [place] [address] Care Team Providers Care Automated Weaver Name Role Phone Pcp, No Primary Care Provider Unavailabl e Encounter Details Date Type Department Care Team (Late st Contact Info) Description 10/15/2023 Scanned Document [facility] [address] [facility] [address] [place] [phone] Radiology, Scan Social History Tobacco Use [...] on filedocumented in this encounter Care Teams Automated Weaver Relationship Specialty Start Date End Date Pcp, No PCP - General General Medicine 12/06/23 documented as of this encounter
--- OUTSIDE RECORDS SUMMARY | 2025-06-22 08:57 | XMS_ITS | Clinical Summary ---
Author Organization [facility] ity Address [address] [place] [address] Care Team Providers Care Functional Tester Typewriters Name Role Phone Yulissa Keyes MD Primary Care Provider [phone] Social History Tobacco Use Types Packs/Day Years [...] 2019 Zoster Vaccines (1 of 2) 2019 Depression Screening 08/16/2024 COVID-19 Vaccine (1 - 2023-2 5 season) 2025 Influenza Vaccine (#1) 2025 RSV Immunization Adult Patie nts (1 - 1-dose 75+ series) 2044 HIB Vaccines Aged Out No longer eligi [...] age to complete this topic Care Teams Functional Tester Typewriters Relationship Specialty Start Date End Date Yulissa Keyes MD [address] [facility] , [address] [facility] D/B/A: [facility] In Internal Medicine OBEY Garcia PCP - General Internal Medicine 08/04/17
[2025-06-22 09:14] VITALS: BP 146/91; PULSE 93; RESP 22; TEMP 36.3; O2SAT 94
--- NOTE | 2025-06-22 09:39 | ED_ITS ---
HPI - Chest Pain General Chief Complaint: Chest Pain Stated Complaint: chest pain, SOB Time Seen by Provider: 06/22/25 09:21 Source: patient Mode of arrival: ambulatory Limitations: no limitations History of Present Illness ED Provider: ROBIN Trevizo HPI narrative: This is a 55-year-old male past medical history significant for PTSD, pernicious anemia, GERD, COPD, dyspnea on exertion, diastolic dysfunction, AFib, hypertension, obesity who presents to the emergency department with complaints of chest pain, shortness of breath and dry cough ongoing for the past 4 days worsening. Chest discomfort substernal nonradiating. Reports it is a intermittent stabbing pain particularly when he is coughing. It is not necessarily worse with exertion. He reports shortness of breath worse with coughing. He also reports mild wheezing. Patient does not endorse fatigue and myalgias. Denies sick contacts denies fevers, chills, headache, abdominal pain, nausea, vomiting, diarrhea. Related Data Home Medications ?Medication ?Instructions ?Recorded ?Confirmed oxcarbazepine 600 mg tablet 600 mg PO BID 09/10/2003/09 buspirone 10 mg tablet 10 mg PO TID 10/06/23 clonazepam 2 mg tablet 2 mg PO TID 10/06/23 5 hydroxyzine pamoate 25 mg capsule 25 mg PO BID PRN Anx iety 10/06/23 02/19/25 oxcarbazepine 300 mg tablet 300 mg PO BID 10/06/2303/09 zolpidem 10 mg tablet 10 mg PO BEDTIME Insomnia 02/19/25 aripiprazole 15 mg tablet 15 mg PO DAILY 06/02/2403/09 bupropion HCl 150 mg 24 hr tablet, 150 mg PO DAILY 02/19/25 extended release furosemide 40 mg tablet 40 mg PO DAILY PRN Edema 02/19/25 prazosin 2 mg capsule 2 mg PO BEDTIME 12/18/2403/09 Previous Rx's ?Medication ?Instructions ?Recorded Grab bar #1 ea 06/24/22 miscellaneous medical supply #1 ea 06/24/22 (Blood Pressure Cuff) blood pressure monitor (Blood #1 ea 08/06/22 Pressure Kit) Shower Chair #1 ea 06/29/23 hand rails #1 ea 06/29/23 folic acid 1 mg tablet 1 mg PO DAILY #30 tabs 06/30 amlodipine 10 mg tablet 10 mg PO DAILY #90 tabs 02/07 aspirin 81 mg chewable tablet 81 mg PO DAILY #30 tabs 08/21/24 (Aspirin Childrens) atorvastatin 40 mg tablet 40 mg PO BEDTIME #30 tabs fenofibrate 160 mg tablet 160 mg PO DAILY 90 days #90 tabs 08/21/24 lisinopril 40 mg tablet 40 mg PO DAILY #90 tabs 02/07 cholecalciferol (vitamin D3) 50 50 mcg PO DAILY #90 ta bs 09/03/24 mcg (2,000 unit) tablet apixaban 5 mg tablet (Eliquis) 5 mg PO BID #180 tabs 0 09/23/24 dronedarone 400 mg tablet (Multaq) 400 mg PO BID #180 tabs 09/23/24 umeclidinium 62.5 mcg-vilanterol 1 ea inhalation DAILY #1 ea 09/26/24 25 mcg/actuation powdr for inhalation (Anoro Ellipta) albuterol sulfate 2.5 mg/3 mL 2.5 mg (3 mL) inhalation TID PRN 11/17/24 (0.083 %) solution for nebulization Shortness Of Breat h Or Wheezing #225 mL meclizine 25 mg tablet 25 mg PO BID PRN dizziness 5 days 11/17/24 #10 tabs indomethacin 50 mg capsule 50 mg PO BID 10 days #20 ca ps 01/01/25 Home oxygen #1 ea 01/23/25 carisoprodol 350 mg tablet 350 mg PO TID PRN Muscle Pa in 30 01/26/25 days #90 tabs chlorthalidone 50 mg tablet 50 mg PO DAILY 90 days #90 tabs 03/05/25 albuterol sulfate 90 mcg/actuation 2 puff inhalation Q 4-6H PRN 05/02/25 aerosol inhaler (Ventolin HFA) shortness of breath or wheezing #8.5 grams nicotine 21 mg/24 hr daily 1 patch transdermal DAILY 2 8 days 06/19/25 transdermal patch #28 ea pantoprazole 40 mg tablet,delayed 40 mg PO QAM 90 days #90 tabs 06/19/25 release albuterol sulfate 90 mcg/actuation 2 inh inhalation Q4 -6H PRN 06/22/25 breath activated powder inhaler shortness of breath or wheezing #1 ea benzonatate 100 mg capsule 100 mg PO BID PRN cough #20 caps 06/22/25 prednisone 20 mg tablet 40 mg (2 x 20 mg) PO DAILY 5 days 06/22/25 #10 tabs Allergies Allergy/AdvReac Type Severity Reaction Status Date / Time bee stings Allergy Severe Anaphylaxis Verified 06/22/25 07:38 Review of Systems 2 Review of Systems: Yes all other systems are reviewed and are negative [facility] Past Medical History Attestation statement: The following information was validated with the patient. Source: old records reviewed and nursing notes reviewed Medical History Mild major depression Atherosclerotic cardiovascular disease Emphysema lung Personal history of nicotine dependence Tubular adenoma of colon Cocaine abuse Lactic acid acidosis Hypoxemia Opioid overdose COVID-19 COPD (chronic obstructive pulmonary disease) History of pneumonia Positive colorectal cancer screening using Cologuard test Gout Essential hypertension Lymphopenia Mixed hyperlipidemia Pernicious anemia Lumbar degenerative disc disease GERD (gastroesophageal reflux disease) Surgical History History of colonoscopy History of esophagogastroduodenoscopy (EGD) History of surgery Status post surgical removal of malignant neoplasm of skin History of shoulder surgery History of arthroscopy of left knee History of total left knee replacement Family History Family History Father Lung cancer Mother Chronic mental illness Alzheimer disease Maternal Grandmother Bone cancer Hypertension Paternal Grandmother Brain cancer Maternal Uncle Cancer Family/Other Chronic mental illness Substance use disorder Social History Social History Household Members: Family Household Members Other:: 2 room mates Housing: House Alcohol intake: former Comment: refsued, wants to be indep Patient Tobacco Use Status: Former Tobacco user Tobacco use type: Cigarette Cigarettes Per Day: 10 Smoked in Last 30 Days: No e-Cigarette/Vaping Use: Never Used Second Hand Smoke Exposure: Yes Use of substances other than those prescribed or required for medical reasons: No Substance Use Type: Crack/Cocaine Advance Directives: No Advance Directives Information Provided: Yes service: No Current occupational status: unemployed and disabled Cognitive needs: No Hearing needs: No Vision needs: Yes Physical Exam 2 Exam: Exam: Appearance: Alert.? Oriented X3.? No acute distress.? Head: Normocephalic, atraumatic, no step-offs or deformities Eyes: Pupils equal, round and reactive to light.? ENT: Pharynx normal.? Neck: Normal inspection.? Neck supple.? CVS: Normal heart rate and rhythm.? Pulses normal.? Respiratory: No respiratory distress.? Breath sounds normal.? Abdomen: Soft and nontender.? Skin: Skin warm and dry.? Normal skin color.? Normal skin turgor.? Extremities: No lower extremity edema.? No calf ttp. 5/5 strength to bilateral upper and lower extremities Neuro: Oriented X 3.? No motor deficit.? No sensory deficit. CN 2-12 intact Vital Signs: Vital Signs: Last Vital Signs Temp 97.4 F 06/22/25 09:14 Pulse 89 06/22/25 09:55 Resp 26 H 06/22/25 09:55 BP 135/79 06/22/25 09:55 Pulse Ox 93 06/22/25 09:55 O2 Del Method Room Air 06/22/25 09:55 BMI result Body Mass Index 38.5 vss Course Reevaluation(s) Reevaluation #1: cbc unremarkable. chemistry unremarkable. Trop 7.9 EKG non diagnostic for CC. Repeat pending. COVID +. Influenza negative. No active pulmonary disease. No interval change. pending repeat trop Time: 09:56 Reevaluation #2: I did do an ambulatory O2 on this patient O2 sat consistently at 95% on room air. Patient is requesting hospital admission because he does not feel well. I explained to him that this is not an indication for hospital admission. Patient tells me he just does not want to be around his neighbors that left upstairs and downstairs since he currently has COVID. I will review CDC guidelines with the patient and put them on patient's discharge. He will be discharged with an inhaler and steroids as well as Tessalon Perles for cough. Educated patient on diagnosis and treatment plan, answered all question, patient verbalizes understanding. At this time patient will be discharged home, advised to return with new or worsening symptoms. Educated on worrisome signs and symptoms and when to return. At this time I feel comfortable discharge home. Time: 10:19 Medical Decision Making Medical Decision Making [facility] Narrative: [id number] 55 year old male presents w/ viral symptoms, cp, sob PE benign Hx and pe concerning for viral illness, flu vs covid. Will rule out pna although unlikely. Unlikely PE, ACS. No signs of acute hypoxic respiratory failure. Will rule out metabolic derangements. Plan labs, imaging, viral test Differential Diagnosis Differential Diagnoses: The differential diagnosis associated with the presentation includes (Hx and pe concerning for viral illness, flu vs covid. Will rule out pna although unlikely. Unlikely PE, ACS. No signs of acute hypoxic respiratory failure. Will rule out metabolic derangements. ) Admission/Observation Consideration of admission/observation: Escalation of care including admission/observation considered Lab Data [facility] Lab Attestation statement: I reviewed the patient's lab results. 06/22/25 08:01 06/22/25 08:01 Labs: Lab Results 06/22/25 Range/Units 08:01 WBC 6.4 (4.8-10.8) X10*3/uL RBC 4.72 (4.60-5.80) X10*6/uL Hgb 13.8 L (14.0-18.0) g/dl Hct 42.3 (42.0-52.0) % MCV 89.6 (80.0-98.0) fL MCH 29.2 (27.0-33.0) pg MCHC 32.6 (31.0-36.0) g/dl RDW 13.6 (11.0-16.0) % Plt Count 293 (160-400) X10*3/uL MPV 10.7 (9.4-12.4) fL Immature Gran % (Auto) 1.4 H (0.0-0.4) % Neut % (Auto) 58.8 (45-73) % Lymph % (Auto) 20.7 (20-40) % [place] % (Auto) 12.6 H (2-11) % Eos % (Auto) 5.9 H (0-4) % Baso % (Auto) 0.6 (0-2) % Lymph # (Auto) 1.3 (1.2-4.9) X10*3/uL [place] # (Auto) 0.8 (0.1-1.2) X10*3/uL Eos # (Auto) 0.4 (0.0-0.4) X10*3/uL Baso # (Auto) 0.0 (0.0-0.2) X10*3/uL Abs Immat Gran (auto) 0.09 H (0.00-0.03) X10*3/uL Absolute Neuts (auto) 3.8 (2.0-8.3) x10*3/uL Absolute Nucleated RBC 0.000 (0.0-0.012) X10*3/uL Nucleated RBC % (auto) 0.0 (0.0-0.2) /100WBC Sodium 140 (135-145) mmol/L Potassium 4.4 (3.3-5.1) mmol/L Chloride 104 (96-108) mmol/L Carbon Dioxide 24 (22-29) mmol/L Anion Gap 16 (12-20) BUN 10 (9-16) mg/dL Creatinine 0.77 (0.5-1.4) mg/dL Estim Creat Clear Calc 157.0 Estimated GFR > 60 Random Glucose 175 H (60-115) mg/dL Calcium 10.0 D (8.4-10.2) mg/dL Total Bilirubin 0.2 (0.0-1.0) mg/dL AST 21 (5-37) U/L ALT 30 (0-40) U/L Alkaline Phosphatase 59 (39-117) U/L Troponin I High Sens 7.9 (<3.5-35.0) ng/L Total Protein 6.9 (6.5-8.0) g/dL Albumin 4.1 (3.5-5.0) g/dL COVID-19 (BRANDON) Positive A (Negative) COVID-19 Clin Com See Note Influenza Type A (MAR) Negative (Negative) Influenza Type B (MAR) Negative (Negative) Influenza A & B Note See Note Independent Interpretation I performed an independent interpretation of an: EKG (non diagnostic for cc ) and Plain X-Ray (XR/XR chest 1V IMPRESSION: No active pulmonary disease. No interval change from 10/18/2024.) Radiology Impression Discussion of test interpretation with radiology: I have reviewed the radiologist's reading. External Record Review External record reviewed: Inpatient record, Office record, Outpatient record, Prior outpatient labs, Prior outpatient radiology, Primary care record and Outside ED record Chronic Conditions Patient?s care impacted by: Hypertension Critical Care Time Critical Care Time Critical Care Time: No Discharge Plan Discharge Clinical Impression: COVID-19 Patient Disposition: Home, Self-Care Instructions: COVID-19 (Coronavirus Disease 2019) (ED) Additional Instructions: Take your medications as prescribed. If you were prescribed antibiotics today, it is important that you take your medication to their entirety, do not skip any doses, do not finish them early. Follow-up with your primary care provider this week. Return to the emergency department with new or worsening symptoms. Such as fevers, chills, chest pain, shortness of breath, nausea, vomiting, dizziness, headache, vision changes, lethargy In case of emergency call 911 XR/XR chest 1V IMPRESSION: No active pulmonary disease. No interval change from 10/18/2024. CDC recommends? https://www.cdc.gov/respiratory-viruses/prevention/index.html t hat all people use core prevention strategies to protect themselves and others from COVID-19: * Stay up to date with?COVID-19 vaccines https://www.cdc.gov/covid/vaccines/uycz-mr-xy-date.html . * Although vaccinated people sometimes get infected with the virus that causes COVID-19, staying up to date on COVID-19 vaccines significantly lowers the risk of getting very sick, being hospitalized, or dying from COVID-19. * Practice good?hygiene? https://www.cdc.gov/respiratory- viruses/prevention/hygiene.html (practices that improve cleanliness) * Take?steps for cleaner window air https://www.cdc.gov/respiratory-viruses/prevention/air-quality.html When you are sick: * Use?precautions to prevent spread https://www.cdc.gov/respiratory-viruses/prevention/htalkfciszx-nyol-dxad.html , including staying home and away from others (including people you live with who are not sick) if you have respiratory symptoms. * Learn when you can?go back to your normal activities https://www.cdc.gov/respiratory-viruses/prevention/dhfzwvpbrso-sruv-jkmr.ht ml . * Seek health care promptly for?testing? https://www.cdc.gov/respiratory- viruses/prevention/testing.html and/or?treatment? https://www.cdc.gov/respiratory-viruses/treatment/index.html if you have?risk factors for severe illness https://www.cdc.gov/respiratory-viruses/risk-factors/index.html . Treatment may help lower your risk of severe illness, but it needs to be started within a few days of when your symptoms begin. Additional Prevention Strategies In addition, there are other prevention strategies that you can choose to further protect yourself and others. * Wearing a mask https://www.cdc.gov/respiratory-viruses/prevention/masks.html ? and?putting distance between yourself and others https://www.cdc.gov/respiratory-viruses/prevention/physical-distancing.html ? can help lower the risk of COVID-19 transmission. * Testing for COVID-19 https://www.cdc.gov/covid/testing/index.html ?can help you decide what to do next, like getting?treatment? https://www.cdc.gov/covid/treatment/index.html to reduce your risk of severe illness and?taking steps https://www.cdc.gov/respiratory-viruses/prevention/omtxpeleooe-lfbm-nkjs.html ?to lower your chances of spreading COVID-19 to others. What to watch out for Using these prevention strategies can be especially helpful when: * Respiratory viruses, such as COVID-19, flu, and RSV, are causing a lot of?i llness in your community https://www.cdc.gov/respiratory-viruses/index.html * You or those around you have?risk factors https://www.cdc.gov/respiratory-viruses/risk-factors/index.html ?for severe illness * You or those around you were recently exposed to a respiratory virus, are sick, or are recovering Prescriptions: New benzonatate 100 mg capsule 100 mg PO BID PRN (Reason: cough) Qty: 20 0RF albuterol sulfate 90 mcg/actuation aerosol powdr breath activated 2 inh inhalation Q4-6H PRN (Reason: shortness of breath or wheezing) Qty: 1 0RF prednisone 20 mg tablet 40 mg PO DAILY 5 Days Qty: 10 0RF No Action (DME) Blood Pressure Cuff Misc See Rx Instructions .Route Qty: 1 0RF Rx Instructions: As directed (DME) Grab bar Misc See Rx Instructions .Route Qty: 1 0RF Rx Instructions: As directed (DME) Shower Chair Misc See Rx Instructions .Route Qty: 1 0RF Rx Instructions: As directed (DME) hand rails See Rx Instructions .Route .MEDSUPPLY Qty: 1 0RF Rx Instructions: As directed folic acid 1 mg tablet 1 mg PO DAILY Qty: 30 11RF cholecalciferol (vitamin D3) 50 mcg (2,000 unit) tablet 50 mcg PO DAILY Qty: 90 0RF albuterol sulfate 2.5 mg /3 mL (0.083 %) solution for nebulization 2.5 mg inhalation TID PRN (Reason: Shortness Of Breath Or Wheezing) Qty: 225 3RF meclizine 25 mg tablet 25 mg PO BID PRN (Reason: dizziness) 5 Days Qty: 10 0RF (DME) Home oxygen See Rx Instructions .Route .MEDSUPPLY Qty: 1 0RF Rx Instructions: As directed 2 L via nasal cannula for sleep carisoprodol 350 mg tablet 350 mg PO TID PRN (Reason: Muscle Pain) 30 Days Qty: 90 0RF chlorthalidone 50 mg tablet 50 mg PO DAILY 90 Days Qty: 90 1RF albuterol sulfate [Ventolin HFA] 90 mcg/actuation HFA aerosol inhaler 2 puff inhalation Q4-6H PRN (Reason: shortness of breath or wheezing) Qty: 8.5 6RF nicotine 21 mg/24 hr patch 24 hour 1 patch transdermal DAILY 28 Days Qty: 28 0RF pantoprazole 40 mg tablet,delayed release (DR/EC) 40 mg PO QAM 90 Days Qty: 90 1RF buspirone 10 mg tablet 10 mg PO TID hydroxyzine pamoate 25 mg capsule 25 mg PO BID PRN (Reason: Anxiety) oxcarbazepine 300 mg tablet 300 mg PO BID zolpidem 10 mg tablet 10 mg PO BEDTIME clonazepam 2 mg tablet 2 mg PO TID furosemide 40 mg tablet 40 mg PO DAILY PRN (Reason: Edema) Eliquis 5 mg Tablet 5 mg PO BID Qty: 180 0RF Multaq 400 mg Tablet 400 mg PO BID Qty: 180 0RF prazosin 2 mg capsule 2 mg PO BEDTIME (DME) blood pressure monitor [Blood Pressure Kit] Kit See Rx Instructions .Route Qty: 1 0RF Rx Instructions: As directed oxcarbazepine 600 mg tablet 600 mg PO BID Anoro Ellipta 62.5-25 mcg/actuation blister with device 1 ea INHALATION DAILY Qty: 1 6RF indomethacin 50 mg capsule 50 mg PO BID 10 Days Qty: 20 1RF Rx Instructions: administer with food or milk aripiprazole 15 mg tablet 15 mg PO DAILY bupropion HCl 150 mg tablet extended release 24 hr 150 mg PO DAILY amlodipine 10 mg tablet 10 mg PO DAILY Qty: 90 3RF atorvastatin 40 mg tablet 40 mg PO BEDTIME Qty: 30 5RF aspirin [Aspirin Childrens] 81 mg tablet,chewable 81 mg PO DAILY Qty: 30 5RF fenofibrate 160 mg tablet 160 mg PO DAILY 90 Days Qty: 90 1RF lisinopril 40 mg tablet 40 mg PO DAILY Qty: 90 2RF Referrals: Yulissa Dempsey MD [Primary Care Provider, Internal Medicine] Print Language: Turkish
[2025-06-22 09:55] VITALS: BP 135/79; PULSE 89; RESP 26; O2SAT 93
[2025-06-22 10:35] VITALS: BP 135/79; PULSE 89; RESP 20; TEMP 36.4; O2SAT 93
== END 2025-06-22 10:44 | disposition home or self-care (01) ==
PROVIDERS: Emergency Provider Emergency Medicine Emergency Medical Services; PCP Internal Medicine
DX: U07.1 COVID-19 (principal); R07.89 Other chest pain; R06.02 Shortness of breath; R05.9 Cough, unspecified; Z79.899 Other long term (current) drug therapy; Z87.891 Personal history of nicotine dependence
CPT/HCPCS: 71045; 80053; 84484; 85025; 87502; 87635; 93005; 99285

== ENCOUNTER → 2025-06-22 07:27 | Outpatient (BNV) | payer OTHER, SELFPAY | PROVIDERS: Emergency Provider Emergency Medicine Emergency Medical Services; PCP Internal Medicine; Visit Provider Internal Medicine Cardiovascular Disease | DX: R94.31 Abnormal electrocardiogram [ECG] [EKG] (principal); R07.9 Chest pain, unspecified | CPT/HCPCS: 93010 ==

== ENCOUNTER → 2025-06-22 08:33 | Outpatient (BNV) | payer OTHER, SELFPAY | PROVIDERS: Emergency Provider Emergency Medicine Emergency Medical Services; PCP Internal Medicine; Visit Provider Radiology Diagnostic Radiology | DX: R07.9 Chest pain, unspecified (principal); R05.9 Cough, unspecified; R06.02 Shortness of breath | CPT/HCPCS: 71045 ==

== ENCOUNTER 2025-07-22 14:43 | Observation (INO) | payer OTHER, SELFPAY ==
[2025-07-22] VITALS (7 sets, daily range): BP systolic 111–168; BP diastolic 61–113; PULSE 88–107; RESP 16–30; TEMP 36.6–37.1; O2SAT 93–98; BMI 37.2; BMI 38.3
--- NOTE | ~2025-07-22 | XR_ITS ---
CLINICAL HISTORY: chest pain, dyspnea 2 view chest x-ray Comparison: CR/WI/SR - XR CHEST 1 VIEW - 06/22/25 08:33 EST Findings: Persistent asymmetric elevation of the right hemidiaphragm. Lungs are clear. No effusion or pneumothorax. Heart size is normal. No acute fracture. IMPRESSION: 1. No acute findings. This document has been electronically signed by: Bennett Styles MD on 07/22/2025 18:16:07
--- NOTE | ~2025-07-22 | CT_ITS ---
CLINICAL HISTORY: chest pain, leukocytosis CT chest with contrast Comparison: CR - XR CHEST 2V - 07/22/25 17:[address]/SR - CT ANGIO CHEST PE PROTOCOL - 09/09/24 13:24 EST Findings: Heart size is normal. Coronary artery calcifications are present. The visualized thyroid and mediastinum are unremarkable. No consolidation or effusion. Lungs are clear. Asymmetric elevation of the right hemidiaphragm, unchanged from priors. Liver is enlarged and there is diffuse fatty infiltration. Mild degenerative changes of the thoracic spine. IMPRESSION: 1. Clear lungs. 2. Hepatomegaly with diffuse fatty infiltration. This document has been electronically signed by: Bennett Styles MD on 07/22/2025 20:47:17
--- NOTE | 2025-07-22 14:49 | ECG_ITS ---
Test Reason : CHEST PAIN Blood Pressure : */* mmHG Vent. Rate : 107 BPM Atrial Rate : 107 BPM P-R Int : 128 ms QRS Dur : 82 ms QT Int : 324 ms P-R-T Axes : 43 -23 107 degrees QTcB Int : 432 ms Sinus tachycardia Possible Left atrial enlargement Left ventricular hypertrophy with repolarization abnormality ( R in aVL ) Abnormal ECG When compared with ECG of 22-Jun-2025 07:28, No significant change was found Referred By: Marietta Wilson Electronically Signed By: BETY RAMOS MD
--- NOTE | 2025-07-22 15:07 | ED.CHESTPAIN ---
HPI - Chest Pain General Chief Complaint: Chest Pain Stated Complaint: CHEST PAIN Time Seen by Provider: 07/22/25 14:58 Source: patient, RN notes reviewed and old records reviewed Mode of arrival: ambulatory Limitations: no limitations History of Present Illness ED Provider: Keny HPI narrative: Patient is a 55-year-old male with history of NSTEMI, HTN, HLD, GERD, atherosclerotic cardiovascular disease, nicotine dependence, COPD presenting with complaint of shortness of breath, chest pain, dizziness and lightheadedness. He states that he was walking at a leisurely pace outdoors which he often does in the mornings. After short time, he began to feel short of breath then developed left-sided chest pain, dizziness and lightheadedness. He reports the symptoms are still present. States he has recently been on home O2 after a COVID infection. He also states that he did not take his blood pressure medication this morning as he is running low and has been rationing them. MD complaint: chest pain Related Data Home Medications ?Medication ?Instructions ?Recorded ?Confirmed oxcarbazepine 600 mg tablet 600 mg PO BID 09/10/20 02/19/25 buspirone 10 mg tablet 10 mg PO TID 10/06/23 02/19/25 clonazepam 2 mg tablet 2 mg PO TID 10/06/23 02/19/25 hydroxyzine pamoate 25 mg capsule 25 mg PO BID PRN Anxiety 10/06/23 02/19/25 oxcarbazepine 300 mg tablet 300 mg PO BID 10/06/23 02/19/25 zolpidem 10 mg tablet 10 mg PO BEDTIME Insomnia 10/06/23 02/19/25 aripiprazole 15 mg tablet 15 mg PO DAILY 06/02/24 02/19/25 bupropion HCl 150 mg 24 hr tablet, 150 mg PO DAILY 06/02/24 02/19/25 extended release furosemide 40 mg tablet 40 mg PO DAILY PRN Edema 09/09/24 02/19/25 prazosin 2 mg capsule 2 mg PO BEDTIME 12/18/24 02/19/25 Previous Rx's ?Medication ?Instructions ?Recorded Grab bar #1 ea 06/24/22 miscellaneous medical supply #1 ea 06/24/22 (Blood Pressure Cuff) blood pressure monitor (Blood #1 ea 08/06/22 Pressure Kit) Shower Chair #1 ea 06/29/23 hand rails #1 ea 06/29/23 folic acid 1 mg tablet 1 mg PO DAILY #30 tabs 06/30/23 amlodipine 10 mg tablet 10 mg PO DAILY #90 tabs 08/21/24 aspirin 81 mg chewable tablet 81 mg PO DAILY #30 tabs 08/21/24 (Aspirin Childrens) atorvastatin 40 mg tablet 40 mg PO BEDTIME #30 tabs 08/21/24 fenofibrate 160 mg tablet 160 mg PO DAILY 90 days #90 tabs 08/21/24 lisinopril 40 mg tablet 40 mg PO DAILY #90 tabs 08/21/24 cholecalciferol (vitamin D3) 50 50 mcg PO DAILY #90 tabs 09/03/24 mcg (2,000 unit) tablet apixaban 5 mg tablet (Eliquis) 5 mg PO BID #180 tabs 09/23/24 dronedarone 400 mg tablet (Multaq) 400 mg PO BID #180 tabs 09/23/24 umeclidinium 62.5 mcg-vilanterol 1 ea inhalation DAILY #1 ea 09/26/24 25 mcg/actuation powdr for inhalation (Anoro Ellipta) albuterol sulfate 2.5 mg/3 mL 2.5 mg (3 mL) inhalation TID PRN 11/17/24 (0.083 %) solution for nebulization Shortness Of Breath Or Wheezing #225 mL meclizine 25 mg tablet 25 mg PO BID PRN dizziness 5 days 11/17/24 #10 tabs indomethacin 50 mg capsule 50 mg PO BID 10 days #20 caps 01/01/25 Home oxygen #1 ea 01/23/25 chlorthalidone 50 mg tablet 50 mg PO DAILY 90 days #90 tabs 03/05/25 albuterol sulfate 90 mcg/actuation 2 puff inhalation Q4-6H PRN 05/02/25 aerosol inhaler (Ventolin HFA) shortness of breath or wheezing #8.5 grams nicotine 21 mg/24 hr daily 1 patch transdermal DAILY 28 days 06/19/25 transdermal patch #28 ea pantoprazole 40 mg tablet,delayed 40 mg PO QAM 90 days #90 tabs 06/19/25 release albuterol sulfate 90 mcg/actuation 2 inh inhalation Q4-6H PRN 06/22/25 breath activated powder inhaler shortness of breath or wheezing #1 ea benzonatate 100 mg capsule 100 mg PO BID PRN cough #20 caps 06/22/25 prednisone 20 mg tablet 40 mg (2 x 20 mg) PO DAILY 5 days 06/22/25 #10 tabs carisoprodol 350 mg tablet 350 mg PO TID PRN Muscle Pain 30 07/02/25 days #90 tabs Allergies Allergy/AdvReac Type Severity Reaction Status Date / Time bee stings Allergy Severe Anaphylaxis Verified 07/22/25 14:54 [facility] Past Medical History Medical History Mild major depression Atherosclerotic cardiovascular disease Emphysema lung Personal history of nicotine dependence Tubular adenoma of colon Cocaine abuse Lactic acid acidosis Hypoxemia Opioid overdose COVID-19 COPD (chronic obstructive pulmonary disease) History of pneumonia Positive colorectal cancer screening using Cologuard test Gout Essential hypertension Lymphopenia Mixed hyperlipidemia Pernicious anemia Lumbar degenerative disc disease GERD (gastroesophageal reflux disease) Surgical History History of colonoscopy History of esophagogastroduodenoscopy (EGD) History of surgery Status post surgical removal of malignant neoplasm of skin History of shoulder surgery History of arthroscopy of left knee History of total left knee replacement Family History Family History Father Lung cancer Mother Chronic mental illness Alzheimer disease Maternal Grandmother Bone cancer Hypertension Paternal Grandmother Brain cancer Maternal Uncle Cancer Family/Other Chronic mental illness Substance use disorder Social History Social History Household Members: Family Household Members Other:: 2 room mates Housing: House Alcohol intake: former Comment: refsued, wants to be indep Patient Tobacco Use Status: Former Tobacco user Tobacco use type: Cigarette Cigarettes Per Day: 10 e-Cigarette/Vaping Use: Never Used Second Hand Smoke Exposure: Yes Substance Use Type: Crack/Cocaine Advance Directives: No Advance Directives Information Provided: No Do you have a plan to hurt others: No Plan service: No Current occupational status: unemployed and disabled Cognitive needs: No Hearing needs: No Vision needs: Yes Physical Exam Vital Signs: Vital Signs: Last Vital Signs Temp 97.8 F 07/22/25 16:50 Pulse 101 H 07/22/25 16:50 Resp 18 07/22/25 16:50 BP 131/87 07/22/25 16:54 Pulse Ox 98 07/22/25 16:50 O2 Del Method Room Air 07/22/25 16:50 BMI result Body Mass Index 37.2 Medications Administered Discontinued Medications Generic Name Dose Route Start Last Admin Trade Name Freq PRN Reason Stop Dose Admin Amlodipine Besylate 10 mg 07/22/25 16:11 07/22/25 16:54 Amlodipine Besylate 10 Mg Tablet PO 07/22/25 16:12 10 mg ONCE ONE Administration Protocol Lisinopril 40 mg 07/22/25 16:11 07/22/25 16:54 Lisinopril 40 Mg Tablet PO 07/22/25 16:12 40 mg ONCE ONE Administration Protocol Medical Decision Making Medical Decision Making [facility] Narrative: Patient is a 55-year-old male with history of NSTEMI, HTN, HLD, GERD, atherosclerotic cardiovascular disease, nicotine dependence, COPD presenting with complaint of shortness of breath, chest pain, dizziness and lightheadedness. On exam patient is awake, A+Ox3, hypertensive, tachycardic, afebrile, normal neurological exam without focal deficits, physical exam findings as above. Given reported symptoms and physical exam findings, initial differential includes but is not limited to ACS/NSTEMI/unstable angina, cardiac arrhythmia, COPD exacerbation, PE, heart failure, pneumonia, GERD. ADD-RS socre of 1, d-dimer negative, unlikely aortic dissection. Labs notable for mild leukocytosis, hyperglycemia without anion gap, negative D-dimer, mildly elevated initial troponin, repeat without delta, BNP elevated. X-ray chest notable for no infiltrate or effusion. My interpretation is in agreement with the radiologist's interpretation. HEART score of 5. Case discussed with Dr. Leong, hospitalist, who would like CT chest but will admit patient. Differential Diagnosis Differential Diagnoses: The differential diagnosis associated with the presentation includes as per [facility] Admission/Observation Consideration of admission/observation: Escalation of care including admission/observation considered Consult Healthcare Provider Management of the patient was discussed with: Hospitalist Lab Data [facility] Lab Attestation statement: I reviewed the patient's lab results. as per [facility] 07/22/25 15:06 07/22/25 15:06 Labs: Lab Results 07/22/25 07/22/25 07/22/25 Range/Units 15:06 16:03 17:13 WBC 14.3 H (4.8-10.8) X10*3/uL RBC 4.85 (4.60-5.80) X10*6/uL Hgb 14.4 (14.0-18.0) g/dl Hct 43.1 (42.0-52.0) % MCV 88.9 (80.0-98.0) fL MCH 29.7 (27.0-33.0) pg MCHC 33.4 (31.0-36.0) g/dl RDW 13.4 (11.0-16.0) % Plt Count 290 (160-400) X10*3/uL MPV 10.0 (9.4-12.4) fL Immature Gran % (Auto) 2.7 H (0.0-0.4) % Neut % (Auto) 73.1 H (45-73) % Lymph % (Auto) 17.2 L (20-40) % [place] % (Auto) 4.7 (2-11) % Eos % (Auto) 1.7 (0-4) % Baso % (Auto) 0.6 (0-2) % Lymph # (Auto) 2.5 (1.2-4.9) X10*3/uL [place] # (Auto) 0.7 (0.1-1.2) X10*3/uL Eos # (Auto) 0.2 (0.0-0.4) X10*3/uL Baso # (Auto) 0.1 (0.0-0.2) X10*3/uL Abs Immat Gran (auto) 0.38 H (0.00-0.03) X10*3/uL Absolute Neuts (auto) 10.5 H (2.0-8.3) x10*3/uL Absolute Nucleated RBC 0.000 (0.0-0.012) X10*3/uL Nucleated RBC % (auto) 0.0 (0.0-0.2) /100WBC PT 10.6 L (11.2-13.5) SEC INR 0.9 (0.9-1.1) APTT 28.5 (26.7-34.1) SEC D-Dimer High Sensitivty < 150 NG/ML Sodium 138 (135-145) mmol/L Potassium 4.8 (3.3-5.1) mmol/L Chloride 102 (96-108) mmol/L Carbon Dioxide 24 (22-29) mmol/L Anion Gap 17 (12-20) BUN 19 H (9-16) mg/dL Creatinine 0.83 (0.5-1.4) mg/dL Estim Creat Clear Calc 143.2 Estimated GFR > 60 Random Glucose 245 H (60-115) mg/dL Calcium 9.4 (8.4-10.2) mg/dL Magnesium 2.1 (1.6-2.6) mg/dL Total Bilirubin 0.2 (0.0-1.0) mg/dL AST 28 (5-37) U/L ALT 25 (0-40) U/L Alkaline Phosphatase 69 (39-117) U/L Troponin I High Sens 12.6 D 15.1 (<3.5-35.0) ng/L NT-Pro-B Natriuret Pep 691.2 H (<300) pg/mL Total Protein 7.3 (6.5-8.0) g/dL Albumin 4.1 (3.5-5.0) g/dL Ethyl Alcohol 11 mg/dL Influenza Type A (PCR) NEGATIVE (Negative) Influenza Type B (PCR) NEGATIVE (Negative) RSV RNA Qual (PCR) NEGATIVE (Negative) SARS-CoV-2 RNA (RT-PCR) NEGATIVE (Negative) Independent Interpretation I performed an independent interpretation of an: EKG (Sinus tachycardia, LVH, rate 107 beats per minute, normal NV interval and QTC, no significant change from prior) and Plain X-Ray Interpretation: Chest x-ray is without evidence of pneumonia, effusion. Radiology Impression Discussion of test interpretation with radiology: I have reviewed the radiologist's reading. Radiologist Impression: 2 view chest x-ray Comparison: CR/NV/SR - XR CHEST 1 VIEW - 06/22/25 08:33 EST Findings: Persistent asymmetric elevation of the right hemidiaphragm. Lungs are clear. No effusion or pneumothorax. Heart size is normal. No acute fracture. IMPRESSION: 1. No acute findings. External Record Review External record reviewed: Inpatient record, Office record and Outpatient record Critical Care Time Critical Care Time Critical Care Time: Yes Total Critical Care Time: 39 Attestation: I have personally provided critical care time exclusive of time spent on separately billable procedures. Time includes review of lab data, radiology results, discussion with consultants, and monitoring for potential decompensation. Intervention performed as documented. Discharge Plan Discharge Clinical Impression: Chest pain Patient Disposition: Admitted As Inpatient Print Language: Occitan
[2025-07-22 15:10] LABS: MANUAL DIFF FLAG NO
[2025-07-22 15:12] LABS: Hematocrit 43.1 % (42.0-52.0); Hemoglobin 14.4 g/dl (14.0-18.0); Imm Gran Abs Auto 0.38 X10*3/uL (0.00-0.03); Imm Gran Pct Auto 2.7 % (0.0-0.4); Lymphocytes Absolute Auto 2.5 X10*3/uL (1.2-4.9); Mean Corpuscular HGB Conc 33.4 g/dl (31.0-36.0); Mean Corpuscular Hemoglobin 29.7 pg (27.0-33.0); Mean Corpuscular Volume 88.9 fL (80.0-98.0); NRBC Abs Auto 0.000 X10*3/uL (0.0-0.012); NRBC Pct Auto 0.0 /100WBC (0.0-0.2); Platelet Count 290 X10*3/uL (160-400); Red Blood Count 4.85 X10*6/uL (4.60-5.80); White Blood Count 14.3 X10*3/uL (4.8-10.8)
--- OUTSIDE RECORDS SUMMARY | 2025-07-22 15:19 | XMS_ITS | Clinical Summary ---
Author Organization [facility] ity Address [address] [place] [address] Care Team Providers Care Mosaicist Name Role Phone Yulissa Keyes MD Primary Care Provider [phone] Social History Tobacco Use Types Packs/Day Years [...] Depression Screening 08/16/2024 COVID-19 Vaccine (1 - 2024-2 6 season) 2025 Influenza Vaccine (#1) 2025 RSV [...] age to complete this topic Care Teams Mosaicist Relationship Specialty Start Date End Date Yulissa Keyes MD [address] [facility] , [address] [facility] D[facility]A: [facility] Internal Medicine OBEY Garcia PCP - General Internal Medicine 08/04/17
--- OUTSIDE RECORDS SUMMARY | 2025-07-22 15:19 | XMS_ITS | Clinical Summary ---
Author Organization [facility] Address [address] [place] [address] Care Team Providers Care Anode Builder Name Role Phone Pcp, No Primary Care [...] series) 2044 [place]ICA[place] [facility] [place] Teams Anode Builder Relationship Specialty Start Date End Date Pcp, No PCP - General General Medicine 12/06/23
--- OUTSIDE RECORDS SUMMARY | 2025-07-22 15:19 | XMS_ITS | Encounter Summary ---
Author Organization [facility] Address [address] [place] [address] Care Team Providers Care Culinary Arts Instructor Name Role Phone Pcp, No Primary Care Provider Unavailabl e Encounter Details Date Type Department Care Team (Late st Contact Info) Description 10/15/2023 Scanned Document [facility] [address] [facility] [address] [place] [id number] Radiology, Scan Social History Tobacco Use [...] on filedocumented in this encounter Care Teams Culinary Arts Instructor Relationship Specialty Start Date End Date Pcp, No PCP - General General Medicine 12/06/23 documented as of this encounter
[2025-07-22 15:20] LABS: INTERNATIONAL NORM RATIO 0.9 (0.9-1.1); Partial Thromboplastin Time 28.5 SEC (26.7-34.1); Prothrombin Time 10.6 SEC (11.2-13.5)
[2025-07-22 15:37] LABS: Alanine Aminotransferase 25 U/L (0-40); Albumin Level 4.1 g/dL (3.5-5.0); Alkaline Phosphatase 69 U/L (39-117); Anion Gap 17 (12-20); Aspartate Amino Transferase 28 U/L (5-37); Blood Urea Nitrogen 19 mg/dL (9-16); Calcium 9.4 mg/dL (8.4-10.2); Carbon Dioxide 24 mmol/L (22-29); Chloride 102 mmol/L (96-108); Creatinine Clr Calc Pharmacy 143.2; Estimated Glomerular Filt Rate > 60; Magnesium 2.1 mg/dL (1.6-2.6); Potassium 4.8 mmol/L (3.3-5.1); Sodium 138 mmol/L (135-145); Total Protein 7.3 g/dL (6.5-8.0)
[2025-07-22 16:13] LABS: Troponin-I High Sensitivity 12.6 ng/L (<3.5-35.0)
[2025-07-22 16:44] LABS: Resp Syncy Virus RNA Qual PCR NEGATIVE (Negative); SARS COV2 PCR INHOUSE NEGATIVE (Negative)
[2025-07-22 16:56] LABS: D Dimer High Sensitivity < 150 NG/ML
[2025-07-22 17:46] LABS: NT Pro B Type Natriuretic Pept 691.2 pg/mL (<300)
[2025-07-22 17:46] LABS: Troponin-I High Sensitivity 15.1 ng/L (<3.5-35.0)
[2025-07-22] MEDS: Furosemide 20 MG/2 ML VIAL IVPUSH (18:37)
[2025-07-22 20:10] LABS: Cannabinoid Screen Urine Not Detected (Not Detect)
[2025-07-22] MEDS: iohexoL 350 MG/ML 100 ML INFUS..BTL 85 ML IV (20:23)
[2025-07-22] MEDS: Albuterol/Iprat 2.5/0.5MG 3 ML AMPUL.NEB INHALE (21:06)
--- NOTE | 2025-07-22 22:27 | PC.NURSE ---
When reviewing meds with pt, pt states Im on about 20 meds at home, I have been trying to wean myself off them because they all probably counteract eachother and I dont want to be on that many meds Inquired about what ones he had been taking pt unaware or meds or indications of them. States weaning them on his own not under a doctor right now because he was due for PCP appt but someone messed up the scheduling but stated he saw PCP approx 5 months ago. Educated patient on importance of medication regimen and med use along with symptoms that brought him in. Will re-educate as needed.
[2025-07-23] VITALS (12 sets, daily range): BP systolic 90–159; BP diastolic 53–83; PULSE 76–167; RESP 18–20; TEMP 36.2–36.9; O2SAT 93–98
--- NOTE | 2025-07-23 00:04 | ECG_ITS ---
Test Reason : CP Blood Pressure : */* mmHG Vent. Rate : 93 BPM Atrial Rate : 93 BPM P-R Int : 128 ms QRS Dur : 88 ms QT Int : 362 ms P-R-T Axes : 34 -29 103 degrees QTcB Int : 450 ms Normal sinus rhythm Possible Left atrial enlargement Left ventricular hypertrophy with repolarization abnormality ( R in aVL , Michael product ) Abnormal ECG When compared with ECG of 22-Jul-2025 14:53, No significant change was found Referred By: Marietta Wilson Electronically Signed By: BETY RAMOS MD
[2025-07-23] MEDS: 0.9 % Sodium Chloride Flush 3 ML SYRINGE IVFLUSH ×4 (00:23→20:35)
[2025-07-23] MEDS: Lactated Ringers 250 ML 999 ML IV (00:26)
--- NOTE | 2025-07-23 00:36 | PC.NURSE ---
While pt asleep, PT HR 160s on tele appearing SVT ~20sec, went to pt room he was asleep. Woke pt up pt was unaware but then stating having chest pain again. BP 124/76 HR 80s at this time in SR. notified- EKG ordered and obtained (see report). nitro given for chest pain 04/25 with no relief per pt. BP then 90/53. MD notified diluadid 0.5mg IV ordered and admin along with 250ml LR at 999ml/hr currently infusing. Trops ordered, lab obtained.
[2025-07-23 01:02] LABS: Troponin-I High Sensitivity 20.2 ng/L (<3.5-35.0)
--- NOTE | 2025-07-23 04:40 | PM.IMHP ---
History of Present Illness Date of Service: 07/22/25 Chief Complaint: Chest pain 55-year-old female with a past medical history of HTN, HLD, CAD, COPD, tobacco dependence, anxiety, depression, degenerative spine disease, history of polysubstance abuse, AFib on Eliquis; presented to the hospital today with a chief complaint of chest pain. Patient mentioned that he went for a walk after he came back he passed out and fell onto the floor; denies any head strike; reports he lost consciousness briefly. Denies any headaches, neck pain or back pain. Reports that she has shortness of breath which is always present unchanged. Denies any cough or sputum production. Mentioned he had episode of chest pain lasted for about an hour. Denied any chest pain at the time of my interview. Patient denies any GI or symptoms. Review of all other systems is negative except mentioned above ER course: Per ER team, patient's exam was nonfocal; EKG nonischemic; D-dimer negative; troponin plateaued; chest x-ray showed no acute findings. [facility] Medical History Mild major depression Atherosclerotic cardiovascular disease Emphysema lung Personal history of nicotine dependence Tubular adenoma of colon Cocaine abuse Lactic acid acidosis Hypoxemia Opioid overdose COVID-19 COPD (chronic obstructive pulmonary disease) History of pneumonia Positive colorectal cancer screening using Cologuard test Gout Essential hypertension Lymphopenia Mixed hyperlipidemia Pernicious anemia Lumbar degenerative disc disease GERD (gastroesophageal reflux disease) Family History Father Lung cancer Mother Chronic mental illness Alzheimer disease Maternal Grandmother Bone cancer Hypertension Paternal Grandmother Brain cancer Maternal Uncle Cancer Family/Other Chronic mental illness Substance use disorder Surgical History History of colonoscopy History of esophagogastroduodenoscopy (EGD) History of surgery Status post surgical removal of malignant neoplasm of skin History of shoulder surgery History of arthroscopy of left knee History of total left knee replacement Social History Household Members: Family Household Members Other:: 2 room mates Housing: House Alcohol intake: former Comment: refsued, wants to be indep Patient Tobacco Use Status: Former Tobacco user Tobacco use type: Cigarette Cigarettes Per Day: 10 e-Cigarette/Vaping Use: Never Used Second Hand Smoke Exposure: Yes Substance Use Type: Crack/Cocaine Advance Directives: No Advance Directives Information Provided: No Do you have a plan to hurt others: No Plan service: No Current occupational status: unemployed and disabled Cognitive needs: No Hearing needs: No Vision needs: Yes Meds Allergies Allergy/AdvReac Type Severity Reaction Status Date / Time bee stings Allergy Severe Anaphylaxis Verified 07/22/25 14:54 Active Medications: Current Medications Acetaminophen (Acetaminophen 325 Mg Tablet) 650 mg PO Q6H PRN PRN Reason: Pain, Mild 1-3,fever,headache Albuterol/Ipratropium (Albuterol/Iprat 2.5/0.5mg 3 Ml Ampul.Neb) 3 ml INHALE RQ4H WHILE AWAKE PRN PRN Reason: Shortness of Breath Last Admin: 07/22/25 21:06 Dose: 3 ml Apixaban (Apixaban 5 Mg Tablet) 5 mg PO BID [facility] Last Admin: 07/22/25 21:31 Dose: 5 mg Buspirone HCl (Buspirone Hcl 10 Mg Tablet) 10 mg PO TID [facility] Last Admin: 07/22/25 21:31 Dose: 10 mg Calcium Carbonate (Calcium Carbonate 750 Mg Tab.Chew) 750 mg PO Q4H PRN PRN Reason: Heartburn Carisoprodol (Carisoprodol 350 Mg Tablet) 350 mg PO BEDTIME PRN PRN Reason: Breakthrough Pain Last Admin: 07/22/25 22:16 Dose: 350 mg Clonazepam (Clonazepam 1 Mg Tablet) 2 mg PO BEDTIME PRN PRN Reason: Sleep Last Admin: 07/22/25 21:31 Dose: 2 mg Dronedarone (Dronedarone Hcl 400 Mg Tablet) 400 mg PO BID [facility] Last Admin: 07/22/25 21:31 Dose: 400 mg Furosemide (Furosemide 40 Mg Tablet) 40 mg PO DAILY GUTIERREZ; Protocol Hydromorphone HCl (Hydromorphone Hcl 1 Mg/Ml Syringe) 0.5 mg IVPUSH Q4H PRN; Protocol PRN Reason: Breakthrough Pain Last Admin: 07/22/25 20:45 Dose: 0.5 mg Influenza Virus Vaccine (Flu Vacc [id number](6mo Up)/Pf 0.5 Ml Syringe) 0.5 ml IM .ONCE ONE Stop: 07/23/25 09:01 Magnesium Hydroxide (Milk Of Magnesia 30 Ml Oral.Susp) 30 ml PO DAILY PRN PRN Reason: Constipation Melatonin (Melatonin 3 Mg Tablet) 6 mg PO BEDTIME PRN PRN Reason: Insomnia Nitroglycerin (Nitroglycerin 0.4 Mg Tab.Subl) 0.4 mg SUBLINGUAL Q5MX3 PRN PRN Reason: Chest Pain Last Admin: 07/23/25 00:02 Dose: 0.4 mg Oxcarbazepine (Oxcarbazepine 300 Mg Tablet) 900 mg PO BID [facility] Last Admin: 07/22/25 20:09 Dose: 900 mg Pantoprazole Sodium (Pantoprazole Sodium 40 Mg/10 Ml Vial) 40 mg IVPUSH DAILY@0630 [facility] Senna (Sennosides 8.6 Mg Tablet) 17.2 mg PO BEDTIME [facility] Last Admin: 07/22/25 20:09 Dose: 17.2 mg Sodium Chloride (0.9 % Sodium Chloride Flush 3 Ml Syringe) 3 ml IVFLUSH QSHIFT [facility] Last Admin: 07/23/25 00:23 Dose: 3 ml Home Medications ?Medication ?Instructions ?Recorded ?Confirmed ?Last Taken ?Type oxcarbazepine 600 mg tablet 600 mg PO BID 09/10/20 02/19/25 12/18/24 History buspirone 10 mg tablet 10 mg PO TID 10/06/23 02/19/25 12/18/24 History clonazepam 2 mg tablet 2 mg PO TID 10/06/23 02/19/25 12/18/24 History hydroxyzine pamoate 25 mg capsule 25 mg PO BID PRN Anxiety 10/06/23 02/19/25 Unknown History oxcarbazepine 300 mg tablet 300 mg PO BID 10/06/23 02/19/25 12/18/24 History zolpidem 10 mg tablet 10 mg PO BEDTIME Insomnia 10/06/23 02/19/25 12/17/24 History aripiprazole 15 mg tablet 15 mg PO DAILY 06/02/24 02/19/25 12/18/24 History bupropion HCl 150 mg 24 hr tablet, 150 mg PO DAILY 06/02/24 02/19/25 09/20/24 History extended release furosemide 40 mg tablet 40 mg PO DAILY PRN Edema 09/09/24 02/19/25 09/20/24 History prazosin 2 mg capsule 2 mg PO BEDTIME 12/18/24 02/19/25 12/17/24 History Physical Exam Vital Signs and Narrative: Vital Signs: Last Vital Signs Temp 98.1 F 07/23/25 03:10 Pulse 85 07/23/25 03:10 Resp 18 07/23/25 03:10 BP 116/56 L 07/23/25 03:10 Pulse Ox 98 07/23/25 03:10 O2 Del Method Room Air 07/23/25 03:10 BMI result Body Mass Index 38.3 Gen: Appears be in no acute distress HEENT: NCAT, Moist mucosa. Pulmonary: Vesicular breath sounds, fair air entry CVS: Normal S1-S2 Abdomen: BS+, Soft, Nontender Extremities: Warm well perfused Neuro: Alert and awake. Results Labs 07/22/25 15:06 07/22/25 15:06 Labs: Laboratory Results - last 24 hr 07/22/25 07/22/25 07/22/25 15:06 16:03 17:13 MCV 88.9 MCH 29.7 MCHC 33.4 RDW 13.4 Plt Count 290 MPV 10.0 Immature Gran % (Auto) 2.7 H Neut % (Auto) 73.1 H Lymph % (Auto) 17.2 L [place] % (Auto) 4.7 Eos % (Auto) 1.7 Baso % (Auto) 0.6 Lymph # (Auto) 2.5 [place] # (Auto) 0.7 Eos # (Auto) 0.2 Baso # (Auto) 0.1 Abs Immat Gran (auto) 0.38 H Absolute Neuts (auto) 10.5 H Absolute Nucleated RBC 0.000 Nucleated RBC % (auto) 0.0 PT 10.6 L INR 0.9 APTT 28.5 D-Dimer High Sensitivty < 150 Anion Gap 17 Estim Creat Clear Calc 143.2 Estimated GFR > 60 Random Glucose 245 H Calcium 9.4 Magnesium 2.1 Total Bilirubin 0.2 AST 28 ALT 25 Alkaline Phosphatase 69 Troponin I High Sens 12.6 D 15.1 NT-Pro-B Natriuret Pep 691.2 H Total Protein 7.3 Albumin 4.1 Urine Opiates Screen Ur Buprenorphine Scrn Ur Oxycodone Screen Urine Methadone Screen Urine Fentanyl Screen Ur Barbiturates Screen Ur Phencyclidine Scrn Ur Amphetamines Screen U Benzodiazepines Scrn Urine Cocaine Screen U Marijuana (THC) Screen Ethyl Alcohol 11 Influenza Type A (PCR) NEGATIVE Influenza Type B (PCR) NEGATIVE RSV RNA Qual (PCR) NEGATIVE SARS-CoV-2 RNA (RT-PCR) NEGATIVE 07/22/25 07/23/25 19:47 00:33 MCV MCH MCHC RDW Plt Count MPV Immature Gran % (Auto) Neut % (Auto) Lymph % (Auto) [place] % (Auto) Eos % (Auto) Baso % (Auto) Lymph # (Auto) [place] # (Auto) Eos # (Auto) Baso # (Auto) Abs Immat Gran (auto) Absolute Neuts (auto) Absolute Nucleated RBC Nucleated RBC % (auto) PT INR APTT D-Dimer High Sensitivty Anion Gap Estim Creat Clear Calc Estimated GFR Random Glucose Calcium Magnesium Total Bilirubin AST ALT Alkaline Phosphatase Troponin I High Sens 20.2 NT-Pro-B Natriuret Pep Total Protein Albumin Urine Opiates Screen Not Detected Ur Buprenorphine Scrn Not Detected Ur Oxycodone Screen Not Detected Urine Methadone Screen Not Detected Urine Fentanyl Screen Not Detected Ur Barbiturates Screen Not Detected Ur Phencyclidine Scrn Not Detected Ur Amphetamines Screen Not Detected U Benzodiazepines Scrn Not Detected Urine Cocaine Screen Not Detected U Marijuana (THC) Screen Not Detected Ethyl Alcohol Influenza Type A (PCR) Influenza Type B (PCR) RSV RNA Qual (PCR) SARS-CoV-2 RNA (RT-PCR) Assessment and Plan (1) Chest pain: Qualifiers: Chest pain type: unspecified Qualified Code(s): R07.9 - Chest pain, unspecified Status: Acute Plan 55-year-old female with a past medical history of HTN, HLD, CAD, COPD, tobacco dependence, anxiety, depression, degenerative spine disease, history of polysubstance abuse, AFib on Eliquis; presented to the hospital today with a chief complaint of chest pain//syncope. Chest pain/syncope: EKG nonischemic Troponin plateaued D-dimer negative Blood pressure stable Telemetry Cardiology consult AFib: Rate controlled. Continue home Multaq, Eliquis Med reconciliation: Resume home medications once med rec completed by pharmacy in a.m. DVT prophylaxis: Patient on Eliquis Code status: Full code Quality Stroke Does the patient have a stroke diagnosis?: No VTE Prior VTE?: No VTE Risk Level:: Medical - moderate - high VTE Device Contraindication: Treatment Not Indicated VTE Drug Contraindication: N/A - Med Ordered
[2025-07-23 07:47] LABS: MANUAL DIFF FLAG NO
[2025-07-23 07:56] LABS: Hematocrit 40.1 % (42.0-52.0); Hemoglobin 12.9 g/dl (14.0-18.0); Imm Gran Abs Auto 0.59 X10*3/uL (0.00-0.03); Imm Gran Pct Auto 4.2 % (0.0-0.4); Lymphocytes Absolute Auto 2.5 X10*3/uL (1.2-4.9); Mean Corpuscular HGB Conc 32.2 g/dl (31.0-36.0); Mean Corpuscular Hemoglobin 29.3 pg (27.0-33.0); Mean Corpuscular Volume 90.9 fL (80.0-98.0); NRBC Abs Auto 0.000 X10*3/uL (0.0-0.012); NRBC Pct Auto 0.0 /100WBC (0.0-0.2); Platelet Count 249 X10*3/uL (160-400); Red Blood Count 4.41 X10*6/uL (4.60-5.80); White Blood Count 14.2 X10*3/uL (4.8-10.8)
[2025-07-23 08:25] LABS: Alanine Aminotransferase 21 U/L (0-40); Albumin Level 3.7 g/dL (3.5-5.0); Alkaline Phosphatase 48 U/L (39-117); Anion Gap 16 (12-20); Aspartate Amino Transferase 14 U/L (5-37); Blood Urea Nitrogen 24 mg/dL (9-16); Calcium 9.2 mg/dL (8.4-10.2); Carbon Dioxide 28 mmol/L (22-29); Chloride 101 mmol/L (96-108); Creatinine Clr Calc Pharmacy 123.1; Estimated Glomerular Filt Rate > 60; Potassium 4.2 mmol/L (3.3-5.1); Sodium 141 mmol/L (135-145); Total Protein 6.1 g/dL (6.5-8.0)
--- NOTE | 2025-07-23 09:18 | PHA.MEDREC ---
Pharmacy Consult ? Medication Reconciliation Pharmacy has completed the medication reconciliation. Pt is a poor historian, but could answer questions based on a list. He will request his sister to make and list and bring it in. Pt is non-adherent with his medications and misses many doses, and has many pharmacy lapses between fill dates. Pt states he has 10 more tablets to complete prednisone course, roughly 5 days left. Medications that have not been filled for many months but the pt states he is still on are: aspirin, LF 11/25 for 30 days indomethacin PRN gout, taken with Folic Acid Hydroxyzine, LF 05/04 Lisinopril, LF 11/25 for 90 days Anoro inhaler., LF 03/02 for 30 days, pt only takes PRN Pt states he has no taken the following in months, with aligns with very old fill dates: atorvastain Vitamin D3 Eliquis, LF 02/06 fenofibrate Furosemide - no recent claims [facility]
--- NOTE | 2025-07-23 09:43 | PM.CNCAR ---
History of Present Illness History of Present Illness Date of Service: 07/23/25 Requesting physician: Paola David Consult reason: chest pain Chief complaint: CHEST PAIN Narrative: I was consulted to see Froilan in cardiology consultation today for chest pain. Patient is a 55-year-old male with morbid obesity, COPD, hypertension, obstructive sleep apnea currently not on treatment, paroxysmal atrial fibrillation, Presented to the hospital with exertional chest pain. patient had a echocardiogram last year which showed possible basal inferior wall abnormality and subsequently underwent a coronary CTA at [facility] which showed significant calcium buildup in all 3 coronary vessels predominantly in the RCA in his circumflex and subsequent angiography showed moderate stenosis in the RCA and [id number] stenosis in the proximal circumflex artery. Patient said he was in usual state of health recently undergoing a lot of stress in his blood pressure has been elevated. Few weeks ago he had ended up going to urgent care because blood pressure is elevated 180/120 and was subsequently diagnose with COVID. He then isolated himself at home became COVID negative and he said he usually likes to walk. He went up for a walk yesterday in the cold weather outside. Usually walks in the mall and has no symptoms when he does 2 rounds of the mall insight. Yesterday walk a block around in his house and he suddenly developed shortness of breath and heavy chest pressure. He said he was not able to going to be able to make it in his house and call 911. He came to the emergency room. His EKGs does not show significant acute ST-T wave changes shows LVH with repolarization abnormality. His troponins are flat. Cardiology consult was called because of his chest pain syndrome prior coronary artery disease. After admission his monitoring shows brief episodes of atrial fibrillation. He is currently not on any oral anticoagulation for unclear reasons. He denies any prolonged palpitation irregular heartbeat. Denies any orthopnea, PND. He uses oxygen at nighttime but not CPAP. Review of Systems Constitutional: Constitutional: Reports no additional constitutional complaints Cardiovascular: Cardiovascular: Reports chest pain with activity, Denies rapid heart rate, Denies leg edema, Denies lightheadedness, Denies Loss of Consciousness, Denies palpitations and Reports dyspnea on exertion Respiratory: Respiratory: Reports no additional respiratory complaints and Reports dyspnea on exertion Gastrointestinal: Gastrointestinal: Reports no additional gastrointestinal complaints Genitourinary: Genitourinary: Reports no additional male genitourinary complaints Musculoskeletal: Musculoskeletal: Reports no additional musculoskeletal complaints Integumentary/Breasts: Skin/Breast: Reports system reviewed and no additional complaints, except as docu Psychiatric: Psychiatric: Reports no additional psychiatric complaints Endocrine: Endocrine: Denies palpitations Allergic/Immunologic: Allergic/Immunologic: Reports no additional allergic/immunologic complaints [facility] Past Medical History Medical History Mild major depression Atherosclerotic cardiovascular disease Emphysema lung Personal history of nicotine dependence Tubular adenoma of colon Cocaine abuse Lactic acid acidosis Hypoxemia Opioid overdose COVID-19 COPD (chronic obstructive pulmonary disease) History of pneumonia Positive colorectal cancer screening using Cologuard test Gout Essential hypertension Lymphopenia Mixed hyperlipidemia Pernicious anemia Lumbar degenerative disc disease GERD (gastroesophageal reflux disease) Family History Family History Father Lung cancer Mother Chronic mental illness Alzheimer disease Maternal Grandmother Bone cancer Hypertension Paternal Grandmother Brain cancer Maternal Uncle Cancer Family/Other Chronic mental illness Substance use disorder Surgical History Surgical History History of colonoscopy History of esophagogastroduodenoscopy (EGD) History of surgery Status post surgical removal of malignant neoplasm of skin History of shoulder surgery History of arthroscopy of left knee History of total left knee replacement Social History Social History Household Members: Family Household Members Other:: 2 room mates Housing: House Alcohol intake: former Comment: refsued, wants to be indep Patient Tobacco Use Status: Former Tobacco user Tobacco use type: Cigarette Cigarettes Per Day: 10 e-Cigarette/Vaping Use: Never Used Second Hand Smoke Exposure: Yes Substance Use Type: Crack/Cocaine Advance Directives: No Advance Directives Information Provided: No Do you have a plan to hurt others: No Plan service: No Current occupational status: unemployed and disabled Cognitive needs: No Hearing needs: No Vision needs: Yes Meds Allergies Allergy/AdvReac Type Severity Reaction Status Date / Time bee stings Allergy Severe Anaphylaxis Verified 07/22/25 14:54 Active Medications: Current Medications Acetaminophen (Acetaminophen 325 Mg Tablet) 650 mg PO Q6H PRN PRN Reason: Pain, Mild 1-3,fever,headache Albuterol/Ipratropium (Albuterol/Iprat 2.5/0.5mg 3 Ml Ampul.Neb) 3 ml INHALE RQ4H WHILE AWAKE PRN PRN Reason: Shortness of Breath Last Admin: 07/22/25 21:06 Dose: 3 ml Apixaban (Apixaban 5 Mg Tablet) 5 mg PO BID [facility] Last Admin: 07/22/25 21:31 Dose: 5 mg Buspirone HCl (Buspirone Hcl 10 Mg Tablet) 10 mg PO TID [facility] Last Admin: 07/22/25 21:31 Dose: 10 mg Calcium Carbonate (Calcium Carbonate 750 Mg Tab.Chew) 750 mg PO Q4H PRN PRN Reason: Heartburn Carisoprodol (Carisoprodol 350 Mg Tablet) 350 mg PO BEDTIME PRN PRN Reason: Breakthrough Pain Last Admin: 07/22/25 22:16 Dose: 350 mg Clonazepam (Clonazepam 1 Mg Tablet) 2 mg PO BEDTIME PRN PRN Reason: Sleep Last Admin: 07/22/25 21:31 Dose: 2 mg Dronedarone (Dronedarone Hcl 400 Mg Tablet) 400 mg PO BID [facility] Last Admin: 07/22/25 21:31 Dose: 400 mg Furosemide (Furosemide 40 Mg Tablet) 40 mg PO DAILY [facility]; Protocol Hydromorphone HCl (Hydromorphone Hcl 1 Mg/Ml Syringe) 0.5 mg IVPUSH Q4H PRN; Protocol PRN Reason: Breakthrough Pain Last Admin: 07/22/25 20:45 Dose: 0.5 mg Magnesium Hydroxide (Milk Of Magnesia 30 Ml Oral.Susp) 30 ml PO DAILY PRN PRN Reason: Constipation Melatonin (Melatonin 3 Mg Tablet) 6 mg PO BEDTIME PRN PRN Reason: Insomnia Nitroglycerin (Nitroglycerin 0.4 Mg Tab.Subl) 0.4 mg SUBLINGUAL Q5MX3 PRN PRN Reason: Chest Pain Last Admin: 07/23/25 00:02 Dose: 0.4 mg Oxcarbazepine (Oxcarbazepine 300 Mg Tablet) 900 mg PO BID [facility] Last Admin: 07/22/25 20:09 Dose: 900 mg Pantoprazole Sodium (Pantoprazole Sodium 40 Mg/10 Ml Vial) 40 mg IVPUSH DAILY@0630 [facility] Senna (Sennosides 8.6 Mg Tablet) 17.2 mg PO BEDTIME [facility] Last Admin: 07/22/25 20:09 Dose: 17.2 mg Sodium Chloride (0.9 % Sodium Chloride Flush 3 Ml Syringe) 3 ml IVFLUSH QSTNFT [facility] Last Admin: 07/23/25 00:23 Dose: 3 ml Home Medications ?Medication ?Instructions ?Recorded ?Confirmed ?Last Taken ?Type oxcarbazepine 600 mg tablet 600 mg PO BID 09/10/20 07/23/25 2 Days Ago History ~07/21/25 buspirone 10 mg tablet 10 mg PO TID 10/06/23 07/23/25 2 Days Ago History ~07/21/25 clonazepam 2 mg tablet 2 mg PO TID 10/06/23 07/23/25 2 Days Ago History ~07/21/25 hydroxyzine pamoate 25 mg capsule 25 mg PO BID PRN Anxiety 10/06/23 07/23/25 Unknown History oxcarbazepine 300 mg tablet 300 mg PO BID 10/06/23 07/23/25 2 Days Ago History ~07/21/25 zolpidem 10 mg tablet 10 mg PO BEDTIME PRN Insomnia 10/06/23 07/23/25 12/17/24 History aripiprazole 15 mg tablet 15 mg PO DAILY 06/02/24 07/23/25 2 Days Ago History ~07/21/25 bupropion HCl 150 mg 24 hr tablet, 150 mg PO DAILY 06/02/24 07/23/25 2 Days Ago History extended release ~07/21/25 prazosin 2 mg capsule 2 mg PO BEDTIME 12/18/24 07/23/25 2 Days Ago History ~07/21/25 folic acid 1 mg tablet 1 mg PO DAILY PRN in combo when 07/23/25 07/23/25 Unknown History indomethacin is needed indomethacin 50 mg capsule 50 mg PO BID PRN gout flare up 07/23/25 07/23/25 Unknown History pantoprazole 40 mg tablet,delayed 40 mg PO DAILY@0630 07/23/25 07/23/25 2 Days Ago History release ~07/21/25 prednisone 20 mg tablet 20 mg PO BID 07/23/25 07/23/25 2 Days Ago History ~07/21/25 Physical Exam Vital Signs: Vital Signs: Last Vital Signs Temp 98.4 F 07/23/25 08:00 Pulse 76 07/23/25 08:00 Resp 18 07/23/25 08:00 BP 125/65 07/23/25 08:00 Pulse Ox 96 07/23/25 08:00 O2 Del Method Room Air 07/23/25 08:00 BMI result Body Mass Index 38.3 Const: General: cooperative, comfortable, no acute distress, alert and awake Nutritional Appearance: obese Orientation/consciousness: patient oriented x3 Limitations: no limitations HEENT: Head: Yes normocephalic and Yes atraumatic Neck: Neck: Yes trachea midline, Yes supple and Yes no JVD Resp: Effort & Inspection: normal respiratory effort Auscultation: clear to auscultation bilaterally Cardio: Jugular venous distension: no JVD Rate: regular rate Rhythm: regular rhythm Heart sounds: S1 normal heart sound present, S2 normal heart sound present, no click, no gallops and no murmurs GI: Inspection: Yes obesity Auscultation: normal bowel sounds Skin: General skin exam: no rashes or lesions noted Neuro: General: patient oriented x3 and no focal motor deficits Extrem: General: Yes no clubbing, cyanosis or edema Objective Labs and Meds 07/23/25 07:22 07/23/25 07:22 Lab results: Laboratory Results - last 24 hr 07/22/25 07/22/25 07/22/25 15:06 16:03 17:13 WBC 14.3 H RBC 4.85 Hgb 14.4 Hct 43.1 MCV 88.9 MCH 29.7 MCHC 33.4 RDW 13.4 Plt Count 290 MPV 10.0 Immature Gran % (Auto) 2.7 H Neut % (Auto) 73.1 H Lymph % (Auto) 17.2 L [place] % (Auto) 4.7 Eos % (Auto) 1.7 Baso % (Auto) 0.6 Lymph # (Auto) 2.5 [place] # (Auto) 0.7 Eos # (Auto) 0.2 Baso # (Auto) 0.1 Abs Immat Gran (auto) 0.38 H Absolute Neuts (auto) 10.5 H Absolute Nucleated RBC 0.000 Nucleated RBC % (auto) 0.0 PT 10.6 L INR 0.9 APTT 28.5 D-Dimer High Sensitivty < 150 Sodium 138 Potassium 4.8 Chloride 102 Carbon Dioxide 24 Anion Gap 17 BUN 19 H Creatinine 0.83 Estim Creat Clear Calc 143.2 Estimated GFR > 60 Random Glucose 245 H Calcium 9.4 Magnesium 2.1 Total Bilirubin 0.2 AST 28 ALT 25 Alkaline Phosphatase 69 Troponin I High Sens 12.6 D 15.1 NT-Pro-B Natriuret Pep 691.2 H Total Protein 7.3 Albumin 4.1 Urine Opiates Screen Ur Buprenorphine Scrn Ur Oxycodone Screen Urine Methadone Screen Urine Fentanyl Screen Ur Barbiturates Screen Ur Phencyclidine Scrn Ur Amphetamines Screen U Benzodiazepines Scrn Urine Cocaine Screen U Marijuana (THC) Screen Ethyl Alcohol 11 Influenza Type A (PCR) NEGATIVE Influenza Type B (PCR) NEGATIVE RSV RNA Qual (PCR) NEGATIVE SARS-CoV-2 RNA (RT-PCR) NEGATIVE 07/22/25 07/23/25 07/23/25 19:47 00:33 07:22 WBC 14.2 H RBC 4.41 L Hgb 12.9 L Hct 40.1 L MCV 90.9 MCH 29.3 MCHC 32.2 RDW 13.7 Plt Count 249 MPV 10.1 Immature Gran % (Auto) 4.2 H Neut % (Auto) 68.5 Lymph % (Auto) 17.4 L [place] % (Auto) 7.3 Eos % (Auto) 2.0 Baso % (Auto) 0.6 Lymph # (Auto) 2.5 [place] # (Auto) 1.0 Eos # (Auto) 0.3 Baso # (Auto) 0.1 Abs Immat Gran (auto) 0.59 H Absolute Neuts (auto) 9.7 H Absolute Nucleated RBC 0.000 Nucleated RBC % (auto) 0.0 PT INR APTT D-Dimer High Sensitivty Sodium 141 Potassium 4.2 Chloride 101 Carbon Dioxide 28 Anion Gap 16 BUN 24 H Creatinine 0.98 Estim Creat Clear Calc 123.1 Estimated GFR > 60 Random Glucose 137 H Calcium 9.2 Magnesium Total Bilirubin 0.3 AST 14 ALT 21 Alkaline Phosphatase 48 Troponin I High Sens 20.2 NT-Pro-B Natriuret Pep Total Protein 6.1 L Albumin 3.7 Urine Opiates Screen Not Detected Ur Buprenorphine Scrn Not Detected Ur Oxycodone Screen Not Detected Urine Methadone Screen Not Detected Urine Fentanyl Screen Not Detected Ur Barbiturates Screen Not Detected Ur Phencyclidine Scrn Not Detected Ur Amphetamines Screen Not Detected U Benzodiazepines Scrn Not Detected Urine Cocaine Screen Not Detected U Marijuana (THC) Screen Not Detected Ethyl Alcohol Influenza Type A (PCR) Influenza Type B (PCR) RSV RNA Qual (PCR) SARS-CoV-2 RNA (RT-PCR) Assessment and Plan (1) Crescendo angina: Status: Acute crescendo angina in this middle-aged man with prior coronary disease although nonobstructive could be related to plaque morphology change with no evidence of troponin leak suggestive of myocardial injury. Also possibly could be related to uncontrolled blood pressure with exercise especially walking in the cold weather and could also be related to coronary vasospasm with walking in the cold weather. His blood pressure on admission was significantly elevated but now is well controlled. He is currently not having any chest pain. We discussed about further treatment options and diagnostic options. Given that he had coronary CTA with moderate CAD with not well evaluated luminal narrowing due to calcification in his coronary arteries I think invasive cardiac catheterization would help to further delineate therapeutic options. If he continues to have nonobstructive CAD and management will be medical and directed towards treating his blood pressure. Recommend him to be treated for his sleep apnea which should help. Overall in the long run he should also be on statin therapy which he is currently not. I would start him on high-intensity statin with Lipitor 40 mg daily. Target goal LDL less than 60 mg/dL. He is also having brief episodes of atrial fibrillation although not symptomatic he is at risk for the same. His CHADSVASc score is at least 2 would strongly consider oral anticoagulation therapy if he requires no intervention. Discussed in details about cardiac catheterization including risk, benefits, alternatives. Arrangements have been made for him to be transferred to [facility]. Procedures Date of Service Date of Service: 07/23/25
--- NOTE | 2025-07-23 11:48 | P.DS_ITS ---
DS: Providers Provider Date of Service: 07/23/25 Date of admission: 07/22/25 19:23 Date of discharge: 07/23/25 Primary care physician: Yulissa Keyes MD Consults: 07/22/25 19:31 Consult to Cardiology Routine Consulting Provider: [facility] Reason for consultation: chest pain DS: Diagnosis Discharge Diagnosis (1) Crescendo angina: Status: Acute (2) Syncope: Status: Acute (3) Coronary artery disease: Status: Acute (4) PAF (paroxysmal atrial fibrillation): Status: Acute DS: Summary Hospital Course Hospital Course: From the history and physical by the admitting hospitalist, Fitz Kramernicochaka, 07/23/25: 55-year-old female with a past medical history of HTN, HLD, CAD, COPD, tobacco dependence, anxiety, depression, degenerative spine disease, history of polysubstance abuse, AFib on Eliquis; presented to the hospital today with a chief complaint of chest pain. Patient mentioned that he went for a walk after he came back he passed out and fell onto the floor; denies any head strike; reports he lost consciousness briefly. Denies any headaches, neck pain or back pain. Reports that she has shortness of breath which is always present unchanged. Denies any cough or sputum production. Mentioned he had episode of chest pain lasted for about an hour. Denied any chest pain at the time of my interview. Patient denies any GI or symptoms. Review of all other systems is negative except mentioned above ER course: Per ER team, patient's exam was nonfocal; EKG nonischemic; D-dimer negative; troponin plateaued; chest x-ray showed no acute findings. He was admitted to the telemetry unit with consultation by nurse sane Sumit Marinelli: Patient is a 55-year-old male with morbid obesity, COPD, hypertension, obstructive sleep apnea currently not on treatment, paroxysmal atrial fibrillation, Presented to the hospital with exertional chest pain. patient had a echocardiogram last year which showed possible basal inferior wall abnormality and subsequently underwent a coronary CTA at [facility] which showed significant calcium buildup in all 3 coronary vessels predominantly in the RCA in his circumflex and subsequent angiography showed moderate stenosis in the RCA and [id number] stenosis in the proximal circumflex artery. Patient said he was in usual state of health recently undergoing a lot of stress in his blood pressure has been elevated. Few weeks ago he had ended up going to urgent care because blood pressure is elevated 180/120 and was subsequently diagnose with COVID. He then isolated himself at home became COVID negative and he said he usually likes to walk. He went up for a walk yesterday in the cold weather outside. Usually walks in the mall and has no symptoms when he does 2 rounds of the mall insight. Yesterday walk a block around in his house and he suddenly developed shortness of breath and heavy chest pressure. He said he was not able to going to be able to make it in his house and call 911. He came to the emergency room. His EKGs does not show significant acute ST-T wave changes shows LVH with repolarization abnormality. His troponins are flat. Cardiology consult was called because of his chest pain syndrome prior coronary artery disease. After admission his monitoring shows brief episodes of atrial fibrillation. He is currently not on any oral anticoagulation for unclear reasons. He denies any prolonged palpitation irregular heartbeat. Denies any orthopnea, PND. He uses oxygen at nighttime but not CPAP. crescendo angina in this middle-aged man with prior coronary disease although nonobstructive could be related to plaque morphology change with no evidence of troponin leak suggestive of myocardial injury. Also possibly could be related to uncontrolled blood pressure with exercise especially walking in the cold weather and could also be related to coronary vasospasm with walking in the cold weather. His blood pressure on admission was significantly elevated but now is well controlled. He is currently not having any chest pain. We discussed about further treatment options and diagnostic options. Given that he had coronary CTA with moderate CAD with not well evaluated luminal narrowing due to calcification in his coronary arteries I think invasive cardiac catheterization would help to further delineate therapeutic options. If he continues to have nonobstructive CAD and management will be medical and directed towards treating his blood pressure. Recommend him to be treated for his sleep apnea which should help. Overall in the long run he should also be on statin therapy which he is currently not. I would start him on high-intensity statin with Lipitor 40 mg daily. Target goal LDL less than 60 mg/dL. He is also having brief episodes of atrial fibrillation although not symptomatic he is at risk for the same. His CHADSVASc score is at least 2 would strongly consider oral anticoagulation therapy if he requires no intervention. As such, he was transferred to [facility] for cardiac c atheterization. Time Attestation Discharge Coordination Time (in mins): 35 Quality: Safe Use of Opioids Does Pt have an Active Cancer Diagnosis on the Problem List?: No Quality: Stroke Does the patient have a stroke diagnosis?: No Physical Exam Vital Signs: Vital Signs: Last Vital Signs Temp 98.4 F 07/23/25 08:00 Pulse 76 07/23/25 08:00 Resp 18 07/23/25 08:00 BP 125/65 07/23/25 08:00 Pulse Ox 96 07/23/25 08:00 O2 Del Method Room Air 07/23/25 08:00 BMI result Body Mass Index 38.3 Gen: in no acute distress HEENT: sclera anicteric, moist mucus membranes Neck: supple Lungs: clear to auscultation bilaterally Heart: regular rate and rhythm, no murmurs Abd: soft, non-tender, non-distended Ext: no edema Skin: warm/well-perfused Neuro: alert and oriented x3, no focal findings Psych: appropriate affect DS: Data Data Completed and Pending Completed studies during hospitalization [Text1]: Laboratory Results WBC 14.2 X10*3/uL (4.8-10.8) H 07/23/25 07:22 RBC 4.41 X10*6/uL (4.60-5.80) L 07/23/25 07:22 Hgb 12.9 g/dl (14.0-18.0) L 07/23/25 07:22 Hct 40.1 % (42.0-52.0) L 07/23/25 07:22 MCV 90.9 fL (80.0-98.0) 07/23/25 07:22 MCH 29.3 pg (27.0-33.0) 07/23/25 07:22 MCHC 32.2 g/dl (31.0-36.0) 07/23/25 07:22 RDW 13.7 % (11.0-16.0) 07/23/25 07:22 Plt Count 249 X10*3/uL (160-400) 07/23/25 07:22 MPV 10.1 fL (9.4-12.4) 07/23/25 07:22 Immature Gran % (Auto) 4.2 % (0.0-0.4) H 07/23/25 07:22 Neut % (Auto) 68.5 % (45-73) 07/23/25 07:22 Lymph % (Auto) 17.4 % (20-40) L 07/23/25 07:22 Mcleod % (Auto) 7.3 % (2-11) 07/23/25 07:22 Eos % (Auto) 2.0 % (0-4) 07/23/25 07:22 Baso % (Auto) 0.6 % (0-2) 07/23/25 07:22 Lymph # (Auto) 2.5 X10*3/uL (1.2-4.9) 07/23/25 07:22 Mcleod # (Auto) 1.0 X10*3/uL (0.1-1.2) 07/23/25 07:22 Eos # (Auto) 0.3 X10*3/uL (0.0-0.4) 07/23/25 07:22 Baso # (Auto) 0.1 X10*3/uL (0.0-0.2) 07/23/25 07:22 Abs Immat Gran (auto) 0.59 X10*3/uL (0.00-0.03) H 07/23/25 07:22 Absolute Neuts (auto) 9.7 x10*3/uL (2.0-8.3) H 07/23/25 07:22 Absolute Nucleated RBC 0.000 X10*3/uL (0.0-0.012) 07/23/25 07: Nucleated RBC % (auto) 0.0 /100WBC (0.0-0.2) 07/23/25 07:22 PT 10.6 SEC (11.2-13.5) L 07/22/25 15:06 INR 0.9 (0.9-1.1) 07/22/25 15:06 APTT 28.5 SEC (26.7-34.1) 07/22/25 15:06 D-Dimer High Sensitivty < 150 NG/ML 07/22/25 15:06 Sodium 141 mmol/L (135-145) 07/23/25 07:22 Potassium 4.2 mmol/L (3.3-5.1) 07/23/25 07:22 Chloride 101 mmol/L (96-108) 07/23/25 07:22 Carbon Dioxide 28 mmol/L (22-29) 07/23/25 07:22 Anion Gap 16 (12-20) 07/23/25 07:22 BUN 24 mg/dL (9-16) H 07/23/25 07:22 Creatinine 0.98 mg/dL (0.5-1.4) 07/23/25 07:22 Estim Creat Clear Calc 123.1 07/23/25 07:22 Estimated GFR > 60 07/23/25 07:22 Random Glucose 137 mg/dL (60-115) H 07/23/25 07:22 Calcium 9.2 mg/dL (8.4-10.2) 07/23/25 07:22 Magnesium 2.1 mg/dL (1.6-2.6) 07/22/25 15:06 Total Bilirubin 0.3 mg/dL (0.0-1.0) 07/23/25 07:22 AST 14 U/L (5-37) 07/23/25 07:22 ALT 21 U/L (0-40) 07/23/25 07:22 Alkaline Phosphatase 48 U/L (39-117) 07/23/25 07:22 Troponin I High Sens 20.2 ng/L (<3.5-35.0) 07/23/25 00:33 NT-Pro-B Natriuret Pep 691.2 pg/mL (<300) H 07/22/25 15:06 Total Protein 6.1 g/dL (6.5-8.0) L 07/23/25 07:22 Albumin 3.7 g/dL (3.5-5.0) 07/23/25 07:22 Urine Opiates Screen Not Detected (Not Detect) 07/22/25 19:47 Ur Buprenorphine Scrn Not Detected ng/mL (Not Detect) 07/22/25 19:47 Ur Oxycodone Screen Not Detected ng/mL (Not Detect) 07/22/25 19:47 Urine Methadone Screen Not Detected ng/mL (Not Detect) 07/22/25 19:47 Urine Fentanyl Screen Not Detected (Not Detect) 07/22/25 19:47 Ur Barbiturates Screen Not Detected (Not Detect) 07/22/25 19:47 Ur Phencyclidine Scrn Not Detected (Not Detect) 07/22/25 19:47 Ur Amphetamines Screen Not Detected (Not Detect) 07/22/25 19:47 U Benzodiazepines Scrn Not Detected (Not Detect) 07/22/25 19:47 Urine Cocaine Screen Not Detected (Not Detect) 07/22/25 19:47 U Marijuana (THC) Screen Not Detected (Not Detect) 07/22/25 19:47 Ethyl Alcohol 11 mg/dL 07/22/25 17:13 Influenza Type A (PCR) NEGATIVE (Negative) 07/22/25 16:03 Influenza Type B (PCR) NEGATIVE (Negative) 07/22/25 16:03 RSV RNA Qual (PCR) NEGATIVE (Negative) 07/22/25 16:03 SARS-CoV-2 RNA (RT-PCR) NEGATIVE (Negative) 07/22/25 16:03 Discharge Plan Discharge Patient Disposition: [facility] Discharge Diagnosis: crescendo angina, syncope Referrals: Yulissa Dempsey MD [Primary Care Provider, Internal Medicine] - 1 Week Discharge Medications: Continued (DME) Blood Pressure Cuff Misc See Rx Instructions .Route Qty: 1 0RF Rx Instructions: As directed (DME) Grab bar Misc See Rx Instructions .Route Qty: 1 0RF Rx Instructions: As directed (DME) Shower Chair Misc See Rx Instructions .Route Qty: 1 0RF Rx Instructions: As directed (DME) hand rails See Rx Instructions .Route .MEDSUPPLY Qty: 1 0RF Rx Instructions: As directed albuterol sulfate 2.5 mg /3 mL (0.083 %) solution for nebulization 2.5 mg inhalation TID PRN (Reason: Shortness Of Breath Or Wheezing) Qty: 225 3RF (DME) Home oxygen See Rx Instructions .Route .MEDSUPPLY Qty: 1 0RF Rx Instructions: As directed 2 L via nasal cannula for sleep chlorthalidone 50 mg tablet 50 mg PO DAILY 90 Days Qty: 90 1RF albuterol sulfate [Ventolin HFA] 90 mcg/actuation HFA aerosol inhaler 2 puff inhalation Q4-6H PRN (Reason: shortness of breath or wheezing) Qty: 8.5 6RF carisoprodol 350 mg tablet 350 mg PO TID PRN (Reason: Muscle Pain) 30 Days Qty: 90 0RF buspirone 10 mg tablet 10 mg PO TID hydroxyzine pamoate 25 mg capsule 25 mg PO BID PRN (Reason: Anxiety) oxcarbazepine 300 mg tablet 300 mg PO BID zolpidem 10 mg tablet 10 mg PO BEDTIME PRN (Reason: Insomnia) clonazepam 2 mg tablet 2 mg PO TID prazosin 2 mg capsule 2 mg PO BEDTIME prednisone 20 mg tablet 20 mg PO BID pantoprazole 40 mg tablet,delayed release (DR/EC) 40 mg PO DAILY@0630 indomethacin 50 mg capsule 50 mg PO BID PRN (Reason: gout flare up) Rx Instructions: administer with food or milk folic acid 1 mg tablet 1 mg PO DAILY PRN (Reason: in combo when indomethacin is needed) (DME) blood pressure monitor [Blood Pressure Kit] Kit See Rx Instructions .Route Qty: 1 0RF Rx Instructions: As directed oxcarbazepine 600 mg tablet 600 mg PO BID Anoro Ellipta 62.5-25 mcg/actuation blister with device 1 ea INHALATION DAILY Qty: 1 6RF aripiprazole 15 mg tablet 15 mg PO DAILY bupropion HCl 150 mg tablet extended release 24 hr 150 mg PO DAILY amlodipine 10 mg tablet 10 mg PO DAILY Qty: 90 3RF aspirin [Aspirin Childrens] 81 mg tablet,chewable 81 mg PO DAILY Qty: 30 5RF lisinopril 40 mg tablet 40 mg PO DAILY Qty: 90 2RF Discharge Orders: Discharge Order (Routine); Ordered 07/23/25 Ordered By: Paola David Diet: Advance to usual diet Activity on Discharge: As tolerated Stand Alone Forms: Patient Portal Discharge page Print Language: Mongolian Care Plan Goals: cardiac health Health Concerns: crescendo angina, syncope Plan of Treatment: transfer to [facility] for cardiac catheterization follow up with Cardiology afterwards Assessment: See Discharge Summary.
--- NOTE | 2025-07-23 12:17 | MHC.CM.PN ---
Pt will be transferred to [facility].
[2025-07-23] MEDS: Albuterol/Iprat 2.5/0.5MG 3 ML AMPUL.NEB INHALE (20:27)
[2025-07-24 03:30] VITALS: BP 146/82; PULSE 80; RESP 18; TEMP 36.3; O2SAT 96
[2025-07-24 07:16] VITALS: BP 144/80; PULSE 82; RESP 16; TEMP 36.3; O2SAT 95
[2025-07-24] MEDS: 0.9 % Sodium Chloride Flush 3 ML SYRINGE IVFLUSH (07:47)
--- NOTE | 2025-07-24 10:51 | PM.PNCARD ---
Subjective Subjective Date of Service: 07/24/25 Principal diagnosis: Crescendo angina Interval history: Patient came with exertional chest pain with prior nonobstructive CAD by coronary CTA. Waiting for bed to [facility]. No overnight chest pain. Blood pressure is slightly elevated. Review of Systems Review of Systems Yes all other systems are reviewed and are negative Physical Exam Vital Signs: Last Vital Signs Temp 97.4 F 07/24/25 07:16 Pulse 82 07/24/25 07:16 Resp 16 07/24/25 07:16 BP 144/80 H 07/24/25 07:16 Pulse Ox 95 07/24/25 07:16 O2 Del Method Room Air 07/24/25 07:16 O2 Flow Rate 1 07/23/25 19:42 BMI result Body Mass Index 38.3 Const General: cooperative, comfortable, no acute distress, alert and awake Nutritional Appearance: obese Orientation/consciousness: patient oriented x3 Limitations: no limitations HEENT Head: Yes normocephalic and Yes atraumatic Neck Neck: Yes trachea midline, Yes supple and Yes no JVD Resp Effort & Inspection: normal respiratory effort Auscultation: clear to auscultation bilaterally Cardio Jugular venous distension: no JVD Rate: regular rate Rhythm: regular rhythm Heart sounds: S1 normal heart sound present, S2 normal heart sound present, no click, no gallops and no murmurs GI Inspection: Yes obesity Auscultation: normal bowel sounds Skin General skin exam: no rashes or lesions noted Neuro General: patient oriented x3 and no focal motor deficits Extrem General: Yes no clubbing, cyanosis or edema Objective Labs and Meds 07/23/25 07:22 07/23/25 07:22 Progress Note: A&P Assessment and plan (1) Crescendo angina: Status: Acute Assessment and Plan: Patient's symptoms suggestive of crescendo angina without any overt myocardial injury noted by cardiac biomarkers. Given his prior coronary disease that could be possibility of change in his plaque morphology and further progressive obstructive disease. This will be determined by cardiac catheterization and if needed with FFR. This was discussed with him. Risks and benefits were discussed. He understands agrees. Importance of aggressive medical therapy was discussed. Does have history of paroxysmal atrial fibrillation and therefore would recommend if he does not require significant intervention to switch him to oral anticoagulation therapy. Will sign of the case. Thank you for allowing me to partake in his care Time Spent With Patient Time: Total time managing care of this patient today ____ minutes. Progress Note: Quality Stroke Does the patient have a stroke diagnosis?: No Procedures Date of Service Date of Service: 07/24/25
== END 2025-07-24 10:44 | disposition short-term general hospital (02) ==
LOC: HO.ED 18:40 → HO.EDOVER 19:34 → HO.IMC 19:38
PROVIDERS: Registered Nurse Emergency; Admitting Provider Hospitalist; Emergency Provider Emergency Medicine; PCP Internal Medicine; Visit Provider Family Medicine
DX: I20.0 Unstable angina (principal); R55 Syncope and collapse; I48.0 Paroxysmal atrial fibrillation; R07.9 Chest pain, unspecified; R00.0 Tachycardia, unspecified; E78.5 Hyperlipidemia, unspecified; K21.9 Gastro-esophageal reflux disease without esophagitis; I10 Essential (primary) hypertension; J44.9 Chronic obstructive pulmonary disease, unspecified; R06.02 Shortness of breath; D72.829 Elevated white blood cell count, unspecified; Z03.818 Encounter for observation for suspected exposure to other biological agents ruled out; R94.31 Abnormal electrocardiogram [ECG] [EKG]; Z79.899 Other long term (current) drug therapy; Z87.891 Personal history of nicotine dependence
CPT/HCPCS: 36415; 71046; 71260; 80053; 80307; 83735; 83880; 84484; 85025; 85379; 85610; 85730; 87637; 93005; 94640; 96374; 96375; 96376; 99222; 99285; J1171; J1938; J7120; Q9967

== ENCOUNTER → 2025-07-22 17:28 | Outpatient (BNV) | payer OTHER, SELFPAY | PROVIDERS: Emergency Provider Emergency Medicine; PCP Internal Medicine; Visit Provider Radiology Diagnostic Radiology | DX: R07.9 Chest pain, unspecified (principal); D72.829 Elevated white blood cell count, unspecified; K76.0 Fatty (change of) liver, not elsewhere classified; R06.00 Dyspnea, unspecified | CPT/HCPCS: 71046; 71260 ==

== ENCOUNTER 2025-07-22 19:23 | Outpatient (BNV) | payer OTHER, SELFPAY | END 2025-07-23 00:04 | PROVIDERS: Admitting Provider Hospitalist; Emergency Provider Emergency Medicine; PCP Internal Medicine; Visit Provider Internal Medicine Cardiovascular Disease | DX: I51.7 Cardiomegaly (principal) | CPT/HCPCS: 93010 ==

== ENCOUNTER → 2025-07-22 19:23 | Outpatient (BNV) | payer OTHER, SELFPAY | PROVIDERS: Admitting Provider Hospitalist; Emergency Provider Emergency Medicine; PCP Internal Medicine; Visit Provider Internal Medicine Cardiovascular Disease | DX: I20.0 Unstable angina (principal) | CPT/HCPCS: 93010; 99222 ==

== ENCOUNTER → 2025-07-22 19:23 | Outpatient (BNV) | payer OTHER, SELFPAY | PROVIDERS: Admitting Provider Hospitalist; Emergency Provider Emergency Medicine; PCP Internal Medicine; Visit Provider Hospitalist | DX: I20.0 Unstable angina (principal); I48.0 Paroxysmal atrial fibrillation; R55 Syncope and collapse; R07.9 Chest pain, unspecified | CPT/HCPCS: 99222; 99239 ==

== ENCOUNTER → 2025-07-24 23:59 | Outpatient (BNV) | payer OTHER, SELFPAY | PROVIDERS: PCP Internal Medicine; Visit Provider Internal Medicine Cardiovascular Disease | DX: I25.118 Atherosclerotic heart disease of native coronary artery with other forms of angina pectoris (principal) | CPT/HCPCS: 93458; 99152 ==

== ENCOUNTER 2025-07-30 12:47 | Outpatient (AMB) | payer OTHER, SELFPAY ==
--- NOTE | 2025-07-30 12:52 | A.OFFPC_ITS ---
Vital Signs 07/30/25 12:53 Height 6 ft 2 in Weight 302 lb 8 oz BMI 38.8 BP 180/118 H Blood Pressure Location Lt brachial Position Sitting Respiration 18 Pulse 86 Pulse Source Pulse Oximeter Temp Source Temporal Artery Scan Pulse Oximetry (%) 96 Oxygen Delivery Method Room Air Intake Visit Reasons: [facility] 07/27 heart attack Uniform Attendant Required: No Accompanied by: Self / Same As Patient Allergies bee stings Allergy (Severe, Verified 07/30/25 13:10) Anaphylaxis Medication List - Last Reconciled 07/30/25 by Yulissa Keyes MD albuterol sulfate 90 mcg/actuation (Ventolin HFA) 2 puffs inhalation Q4-6H PRN albuterol sulfate 2.5 mg (3 mL) inhalation TID PRN amlodipine 10 mg PO DAILY aripiprazole 15 mg PO DAILY aspirin (Aspirin Childrens) 81 mg PO DAILY blood pressure monitor (Blood Pressure Kit) As directed bupropion HCl XL 150 mg PO DAILY buspirone 10 mg PO TID carisoprodol 350 mg PO TID PRN 30 days chlorthalidone 50 mg PO DAILY 90 days clonazepam 2 mg PO TID folic acid 1 mg PO DAILY PRN Grab bar As directed [hand rails As directed] [Home oxygen As directed 2 L via nasal cannula for sleep] hydroxyzine pamoate 25 mg PO BID PRN indomethacin 50 mg PO BID PRN lisinopril 40 mg PO DAILY miscellaneous medical supply (Blood Pressure Cuff) As directed oxcarbazepine 600 mg PO BID oxcarbazepine 300 mg PO BID pantoprazole 40 mg PO DAILY@0630 prazosin 2 mg PO BEDTIME prednisone 20 mg PO BID Shower Chair As directed umeclidinium-vilanterol 62.5-25 mcg/actuation (Anoro Ellipta) 1 ea inhalation DAILY zolpidem 10 mg PO BEDTIME PRN Tobacco use date assessed: 07/30/25 Dental Screening Dental Screen Date: 07/30/25 Did you have a dental visit in the last 12 months?: Yes Did you have a dental problem in the last 6 months where you did not have access to dental care?: No Was dental information given to patient?: Patient has dentist HPI HPI Comments History of Present Illness Details The patient is a 55 year old male presenting for follow-up after a recent hospitalization for cardiac symptoms and management of hypertension. He had an appointment a few weeks ago but canceled because he contracted COVID-19. Following the COVID-19 infection, he began experiencing symptoms of very high blood pressure, including dizziness, lightheadedness, and severe headaches, feeling as though he was going to pass out if he stood for too long. Last week, while feeling well, the patient went for a walk and collapsed on his front step, prompting him to call 911. Three days prior to this event, his sister had taken him to an urgent care for his blood pressure. After the urgent care visit, he self-adjusted his medication by doubling up on his lisinopril, which he felt helped his symptoms. After his fall, he was taken to [facility], where his blood pressure was very high, and they initially planned to discharge him after it was lowered. However, after further blood tests and a urinalysis, fluid was found around his heart, leading to his admission. He was then transferred to [facility] for a cardiac catheterization, which was performed via his wrist. At [place], his troponin was negative, but he experienced episodes of atrial fibrillation. COPD stable. The patient's medical history includes COPD and past smoking. He has been managing his COPD, and he reports having quit smoking a long time ago, though he requested patches for a recent craving. His current medications include amlodipine 10 mg, Abilify 15 mg, baby aspirin, bupropion, buspirone, Soma, chlorthalidone 50 mg, clonazepam, folic acid, indomethacin, lisinopril 40 mg, oxcarbazepine, pantoprazole, and prazosin. Has chronic low back pain due to lumbar degenerative disc disease and has had good results with TENS unit. [facility] Medical History Mild major depression Atherosclerotic cardiovascular disease Emphysema lung Personal history of nicotine dependence Tubular adenoma of colon Cocaine abuse Lactic acid acidosis Hypoxemia Opioid overdose COVID-19 COPD (chronic obstructive pulmonary disease) History of pneumonia Positive colorectal cancer screening using Cologuard test Gout Essential hypertension Lymphopenia Mixed hyperlipidemia Pernicious anemia Lumbar degenerative disc disease GERD (gastroesophageal reflux disease) Surgical History History of colonoscopy History of esophagogastroduodenoscopy (EGD) History of surgery Status post surgical removal of malignant neoplasm of skin History of shoulder surgery History of arthroscopy of left knee History of total left knee replacement Family History Father Lung cancer Mother Chronic mental illness Alzheimer disease Maternal Grandmother Bone cancer Hypertension Paternal Grandmother Brain cancer Maternal Uncle Cancer Family/Other Chronic mental illness Substance use disorder Social History Household Members: Family Household Members Other:: 2 room mates Housing: House Alcohol intake: former Comment: refsued, wants to be indep Patient Tobacco Use Status: Former Tobacco user Tobacco use type: Cigarette Cigarettes Per Day: 10 e-Cigarette/Vaping Use: Never Used Second Hand Smoke Exposure: Yes Substance Use Type: Crack/Cocaine service: No Current occupational status: unemployed and disabled Cognitive needs: No Hearing needs: No Vision needs: Yes Questionnaire Thrive Questionnaire Date Thrive assessed: 07/30/25 I am a: Patient What is your living situation today?: I have a steady place to live Within the past 12 months, did the food you bought not last and you didn't have the money to get more?: I choose not to answer this question Within the past 12 months, did you worry whether your food would run out before you got money to buy more?: I choose not to answer this question Do you have trouble paying for medicines?: No Do you have trouble getting transportation to medical appointments?: No Do you have trouble paying your heating and electricity bill?: I choose not to answer this question Do you have trouble taking care of your child, family member or friend?: No Do you have trouble with day-to-day activities such as bathing, preparing meals, shopping, managing finances, etc.?: Yes Are you currently unemployed and looking for a job?: No Are you interested in more education?: No Please select the resources that you would like help with: None Currently or been in a relationship where the following occur: No concerns reported THRIVE Score: 0 EN-7 AMB Questionnaire EN-7 Date NE - 7 assessed: 02/19/25 Source: Developed by Drs. Shabbir Barreto, Stella John Price and colleagues, with an educational herbert from [employer]. Review of Systems Const All systems reviewed & are unremarkable except as noted in HPI and below Card Denies chest pain at rest, Denies chest pain with activity, Denies edema, Denies irregular heart rhythm, Denies claudication, Denies dyspnea, Denies dyspnea on exertion, Denies orthopnea, Denies paroxysmal nocturnal dyspnea and Denies slow heart rate Resp Denies cough, Denies dyspnea and Denies dyspnea on exertion GI Denies abdominal pain, Denies change in bowel habits, Denies excessive flatus, Denies nausea and Denies vomiting Neuro Denies behavioral changes and Denies lack of coordination Psych Denies behavioral changes Physical exam (Primary Care) Vital Signs: Last Vital Signs Pulse 86 07/30/25 12:53 Resp 18 07/30/25 12:53 BP 180/118 H 07/30/25 12:53 Pulse Ox 96 07/30/25 12:53 Oxygen Delivery Method Room Air 07/30/25 12:53 BMI result Body Mass Index 38.8 BMI Assessment/Plan discussion: High BMI High, discussed plan: lifestyle, weight reduction, dietary and physical activity Tobacco/Smoking Status: Tobacco use Status Tobacco use date assessed 07/30/25 07/30/25 13:02 Patient Tobacco Use Status Former Tobacco user 07/30/25 13:02 Tobacco use type Cigarette 07/30/25 13:02 e-Cigarette/Vaping Use Never Used 07/30/25 13:02 Thrive Assessment: Date of Thrive Assessment Date Thrive assessed 07/30/25 07/30/25 13:02 Currently or been in a relationship where the following occur: No concerns reported Neck Neck: Yes normal visual inspection and Yes supple Resp Effort & Inspection: normal respiratory effort Auscultation: clear to auscultation bilaterally Cardio Jugular venous distension: no JVD Rate: regular rate Rhythm: regular rhythm Heart sounds: S1 normal heart sound present and S2 normal heart sound present Extrem General: Yes full ROM Coding Level of Care Code Est Pt Level 4 (85623) Add On Problem Visit Only Diagnoses Hypertension, unspecified type I10 Hypertension type: unspecified Coronary artery disease I25.10 PAF (paroxysmal atrial fibrillation) I48.0 Pulmonary emphysema, unspecified emphysema type J43.9 COPD type: emphysema Emphysema type: unspecified Lumbar degenerative disc disease M51.36 Time Spent (min) 23 Assessment & Plan Assessment & Plan (1) HTN (hypertension): Code(s): I10 - Essential (primary) hypertension Category: Medical Qualifiers: Hypertension type: unspecified Qualified Code(s): I10 - Essential (primary) hypertension (2) Coronary artery disease: Code(s): I25.10 - Atherosclerotic heart disease of [place] coronary artery without angina pectoris Category: Medical (3) PAF (paroxysmal atrial fibrillation): Code(s): I48.0 - Paroxysmal atrial fibrillation Category: Medical (4) COPD (chronic obstructive pulmonary disease): Code(s): J44.9 - Chronic obstructive pulmonary disease, unspecified Category: Medical Qualifiers: COPD type: emphysema Emphysema type: unspecified Qualified Code(s): J43.9 - Emphysema, unspecified (5) Lumbar degenerative disc disease: Code(s): M51.36 - Other intervertebral disc degeneration, lumbar region Category: Medical Plan Plan 1. Hypertension The patient's blood pressure is noted to be very high during the visit. His discharge medications from [facility] include metoprolol 25 mg, which is being added to his regimen. Metoprolol will help decrease blood pressure and heart rate. Indomethacin was discontinued by the hospital. The patient is advised to monitor his blood pressure an at home, and a larger cuff will be ordered for him. 2. Coronary Artery Disease And Atrial Fibrillation The patient was recently hospitalized and underwent a cardiac catheterization, which showed non-significant coronary artery disease and a 70% stenosis in a small right coronary artery. He was noted to be in and out of atrial fibrillation with a CHADS-VASC score of 2. At [facility], he was started on atorvastatin 40 mg, metoprolol, aspirin, and possibly Eliquis, although the paperwork is not fully clear on Eliquis. Metoprolol is beneficial for coronary artery disease to reduce mortality. He is advised to follow up with cardiology in two weeks, though he reports difficulty scheduling with them. 3. Obesity Weight loss was discussed as a necessary goal. Weight gain can be a side effect of smoking cessation. We will attempt to get prior authorization for Zepbound, a weekly injection for weight loss, although it may not be approved by insurance. 4. Pain Management The patient requested a new TENS unit as his old one is no longer working. A new TENS unit will be ordered, but insurance approval is uncertain. 5. Follow-Up The patient will follow up in approximately three weeks, in August, to reassess his blood pressure and overall status. Medications: New metoprolol tartrate 12.5 mg (1/2 x 25 mg) PO BID 90 tabs 1RF 90 days apixaban (Eliquis) 5 mg PO BID 180 tabs 1RF 90 days TENS units (TENS 502 device) As directed 1 ea 0RF M51.36 - Other intervertebral disc degeneration, lumbar region TENS units (TENS 502 device) As directed 1 ea 0RF M51.36 - Other intervertebral disc degeneration, lumbar region Refilled blood pressure monitor (Blood Pressure Kit) As directed 1 ea 1RF I10 - Essential (primary) hypertension
[2025-07-30 12:53] VITALS: BP 180/118; PULSE 86; RESP 18; O2SAT 96; BMI 38.8
--- OUTSIDE RECORDS SUMMARY | 2025-07-30 18:26 | XMS_ITS | Clinical Summary ---
Author Organization [facility] Address [address] [place] [address] Care Team Providers Care Book Repairer Name Role Phone Pcp, No Primary Care [...] Influenza Vaccine 03/16/2025 COVID-19 Vaccine (1 - 2024- season) 2025 RSV Vaccine 50 years and old er and Patients (1 - 1-dose 75+ series) 2044 Insurance MEDICAID OUT OF STATE [facility] Care Teams Book Repairer Relationship Specialty Start Date End Date Pcp, No PCP - General General Medicine 12/06/23
--- OUTSIDE RECORDS SUMMARY | 2025-07-30 18:26 | XMS_ITS | Encounter Summary ---
Author Organization [facility] Address [address] [place] [address] Care Team Providers Care Strip Cleaner Name Role Phone Pcp, No Primary Care Provider Unavailabl e Encounter Details Date Type Department Care Team (Late st Contact Info) Description 10/15/2023 Scanned Document [facility] [address] [facility] [address] [place] [id number] Radiology, Scan Social History Tobacco Use [...] on filedocumented in this encounter Care Teams Strip Cleaner Relationship Specialty Start Date End Date Pcp, No PCP - General General Medicine 12/06/23 documented as of this encounter
--- OUTSIDE RECORDS SUMMARY | 2025-07-30 18:26 | XMS_ITS | Clinical Summary ---
Author Organization [facility] Address [address] [place] [address] Care Team Providers Care Cable Installer Repairer Helper Name Role Phone Yulissa Keyes MD Primary Care Provider [phone] Social History Tobacco Use Types Packs/Day Years [...] age to complete this topic Care Teams Cable Installer Repairer Helper Relationship Specialty Start Date End Date Yulissa Keyes MD [address] [facility] , [address] [facility] D/B/A: [facility] Internal Medicine OBEY Garcia PCP - General Internal Medicine 08/04/17
== END 2025-07-30 13:34 | disposition home or self-care (01) ==
LOC: HO.HMCH 12:47
PROVIDERS: PCP Internal Medicine; Visit Provider Internal Medicine
DX: I10 Essential (primary) hypertension (principal); I25.10 Atherosclerotic heart disease of native coronary artery without angina pectoris; I48.0 Paroxysmal atrial fibrillation; J43.9 Emphysema, unspecified; M51.369 Other intervertebral disc degeneration, lumbar region without mention of lumbar back pain or lower extremity pain

== ENCOUNTER → 2025-07-30 12:47 | Outpatient (BNVA) | payer OTHER, SELFPAY | PROVIDERS: PCP Internal Medicine; Visit Provider Internal Medicine | DX: I25.10 Atherosclerotic heart disease of native coronary artery without angina pectoris (principal); I48.0 Paroxysmal atrial fibrillation; I10 Essential (primary) hypertension; J43.9 Emphysema, unspecified; M51.369 Other intervertebral disc degeneration, lumbar region without mention of lumbar back pain or lower extremity pain | CPT/HCPCS: 99212 ==